=== PATIENT | female | born 1940 | race Caucasian/White ===

== ENCOUNTER → 2018-01-17 09:09 | Outpatient (CLI) | payer MEDICARE, SELFPAY ==
[2018-01-17 11:03] LABS: Hemoglobin A1C% w Est Avg Glu 6.2 % (4.0-6.0)
[2018-01-17 11:09] LABS: Alanine Aminotransferase 72 IU/L (9-52); Albumin 4.1 g/dL (3.5-5.0); Albumin Globulin Ratio 1.1 (1.0-2.8); Alkaline Phosphatase 117 U/L (38-126); Aspartate Aminotransferase 103 IU/L (14-36); BUN Creatinine Ratio 25.7 (6-22); Bilirubin Total 0.9 mg/dL (0.2-1.3); Blood Urea Nitrogen 18 mg/dL (7-17); Calcium 9.4 mg/dL (8.4-10.2); Carbon Dioxide 28 mmol/L (22-32); Chloride 103 mmol/L (98-107); Cholesterol 163 mg/dL (140-199); Estimated Glomerular Filt Rate > 60.0 mL/min (>60); Globulin 3.8 g/dL (1.7-4.1); Glucose 130 mg/dL (80-110); HDL Cholesterol 56 mg/dL (40-60); HEMOLYSIS < 15 (0-50); LDL Cholesterol Calculated 89 mg/dL (<100); Potassium 4.1 mmol/L (3.4-5.1); Sodium 142 mmol/L (137-145); Total Protein 7.9 g/dL (6.3-8.2); Triglycerides 89 mg/dL (35-150)
== END ==
PROVIDERS: Family Provider Family Medicine; PCP Family Medicine; Visit Provider Family Medicine
DX: I10 Essential (primary) hypertension (principal); R73.9 Hyperglycemia, unspecified; E78.2 Mixed hyperlipidemia; K75.4 Autoimmune hepatitis
CPT/HCPCS: 36415; 80053; 80061; 83036

== ENCOUNTER → 2018-04-12 15:26 | Outpatient (CLI) | payer MEDICARE, SELFPAY ==
--- NOTE | 2018-04-12 | DI.MG.S_ITS ---
BILATERAL DIGITAL SCREENING MAMMOGRAM 3D/2D WITH CAD: 04/12/2018 CLINICAL: Routine screening. Family history of breast cancer. Comparison is made to exams dated: 04/07/2017 mammogram, 04/01/2016 mammogram, and 02/11/2015 mammogram - [facility]. There are scattered fibroglandular elements in both breasts. Current study was also evaluated with a Computer Aided Detection (CAD) system. No significant masses, calcifications, or other findings are seen in either breast. There has been no significant interval change. IMPRESSION: NEGATIVE There is no mammographic evidence of malignancy. A 1 year screening mammogram is recommended. This exam was interpreted at Station ID: [id number]. NOTE: For mammograms, a report in lay terms will be sent to the patient. Approximately 15% of breast malignancies will not be visualized mammographically. In the management of a palpable breast mass, a negative mammogram must not discourage biopsy of a clinically suspicious lesion. Electronically Signed By: Lawrence [email or web address]/[email or web address]:04/14/2018 03:09:42 letter sent: Normal Exam ACR BI-RADS Category 1: Negative [id number]
== END ==
PROVIDERS: Family Provider Family Medicine; PCP Family Medicine; Visit Provider Family Medicine
DX: Z12.31 Encounter for screening mammogram for malignant neoplasm of breast (principal); Z80.3 Family history of malignant neoplasm of breast
CPT/HCPCS: 77063; 77067

== ENCOUNTER 2018-04-16 11:59 | Emergency (ER) | payer MEDICARE, SELFPAY ==
[2018-04-16 12:05] VITALS: BP 180/65; PULSE 73; RESP 15; TEMP 36.6; O2SAT 99; BMI 30.7
--- NOTE | 2018-04-16 13:10 | DI.RAD.S_ITS ---
PROCEDURE: XR HIP W PEL IF DONE RT 2V INDICATIONS: hip pain TECHNIQUE: 2 views of the hip were acquired. COMPARISON: [facility], [place], HIPBILAT 3TO4V W PEL IF PERFD, 05/10/2016, 10:44. FINDINGS: Bones: No fractures or dislocations. No suspicious bony lesions. The visualized pelvic ring appears intact. Soft tissues: No suspicious soft tissue calcifications or masses. IMPRESSION: No acute radiographic findings. If pain persists, consider advanced imaging with CT or MRI. Dictated by: Priya Hopper M.D. on 04/16/2018 at 14:07 Approved by: Priya Hopper M.D. on 04/16/2018 at 14:08
--- NOTE | 2018-04-16 13:14 | ED.LOWEXIN ---
HPI - Extremity Injury (Lower) <REHAN Madsen-BC - Last Filed: 04/16/18 15:30> General Chief Complaint: Extremity Injury, Lower Stated Complaint: right hip pain Time Seen by Provider: 04/16/18 13:04 Source: patient Mode of arrival: ambulatory Limitations: no limitations History of Present Illness HPI Narrative: Patient presents with chief complaint of her right hip pain. She states she stepped wrong while bowling a week and half ago. She denies any numbness or tingling. She states that her pain is worse upon movement, walking as well as if she is in one position for too long. She has tried a few doses of Tylenol as well as ice. She is concerned she has a fracture. She states she did not fall, but stepped wrong. She denies weakness or decreased range of motion. She denies any bruising or rash. She states that she is in no pain at this moment in time but her pain was 8/10 last night. Related Data Home Medications Medication Instructions Recorded Confirmed ASPIRIN (Aspirin EC) 81 mg PO Q DAY #0 12/01/10 03/10/18 FOLIC ACID/VIT A/VIT B1/VIT 1 tab PO #0 12/01/10 01/24/18 (#MULTIVITAMIN) ibuprofen 800 mg PO Q8HP #0 12/01/10 03/10/18 Previous Rx's Medication Instructions Recorded Glucose: Test Strips ea QDAY #100 06/29/17 ezetimibe 10 mg tablet 10 mg PO QDAY #90 tab 01/24/18 hydrochlorothiazide 25 mg tablet 25 mg PO QDAY #90 tab 01/24/18 Allergies Allergy/AdvReac Type Severity Reaction Status Date / Time No Known Drug Allergies Allergy Verified 04/16/18 12:05 Review of Systems <HÉCTOR MadsenBC - Last Filed: 04/16/18 15:30> Review of Systems GENERAL: Denies chills, fatigue, malaise, fever, sweats. HEENT: Denies sinus pain, ear pain, sore throat, difficulty swallowing, dizziness. RESPIRATORY: Denies dyspnea, cough, wheezing, hemoptysis, sputum. CARDIOVASCULAR: Denies chest pain, palpitations, orthopnea, edema, GASTROINTESTINAL: Denies nausea, vomiting, abdominal pain, diarrhea, constipation, melena. : Denies dysuria, frequency, incontinence, hematuria, urinary retention. MUSCULOSKELETAL: See HPI SKIN: Denies rash, skin lesions, or other NEUROLOGIC: Denies weakness, headache, numbness, change in speech, confusion, seizures, incoordination. PSYCHIATRIC: No concerning psychosocial issues. 12 point review of systems is negative except for those stated above Exam <REHAN Madsen-BC - Last Filed: 04/16/18 15:30> Narrative Exam Narrative: GENERAL: Obese elderly female lying on stretcher. HEAD: Atraumatic. Normocephalic. No temporal or scalp tenderness. EYES: Pupils equal round and reactive. Extraocular motions intact. No scleral icterus. No injection or drainage. ENT: Nose without bleeding, purulent drainage or septal hematoma. Throat without erythema, tonsillar hypertrophy or exudate. Uvula midline. Airway patent. NECK: Trachea midline. No JVD or lymphadenopathy. Supple, nontender, no meningeal signs. CARDIOVASCULAR: Regular rate and rhythm without murmurs, gallops, or rubs. RESPIRATORY: Clear to auscultation. Breath sounds equal bilaterally. No wheezes, rales, or rhonchi. GASTROINTESTINAL: Abdomen soft, non-tender, nondistended. No hepato-splenomegaly, or palpable masses. No guarding. EXTREMITIES: Right hip pain to palpation. Full range of motion noted right hip. Positive pedal pulses right side. No pedal edema noted. Pelvis stable to rock. Patient ambulating steadily. BACK: Nontender without deformity or crepitance. No flank tenderness. NEURO: AOx3. SKIN: No rash or erythema. No erythema, ecchymosis or rash noted right hip. Initial Vital Signs Initial Vital Signs: Vital Signs Temperature 97.9 F 04/16/18 12:05 Pulse Rate 73 04/16/18 12:05 Respiratory Rate 15 04/16/18 12:05 Blood Pressure 180/65 H 04/16/18 12:05 Pulse Oximetry 99 04/16/18 12:05 <China Rodas DO - Last Filed: 04/19/18 07:46> Initial Vital Signs Initial Vital Signs: Vital Signs Temperature 97.9 F 04/16/18 12:05 Pulse Rate 73 04/16/18 12:05 Respiratory Rate 15 04/16/18 12:05 Blood Pressure 180/65 H 04/16/18 12:05 Pulse Oximetry 99 04/16/18 12:05 Course <AMANDEEP Madsen - Last Filed: 04/16/18 15:30> Orders Ordered: ED Orders 04/16/18 13:10 XR hip w pel if done RT 2V Stat 04/16/18 13:55 Urinalysis and Microscopic Stat Urine Culture Stat I discussed her UA showed leukocytes, but that she has no urinary symptoms as well as no blood nitrites, we will send a urine culture and not start antibiotics at this time. She states understanding. Vital Signs - 8 hr 04/16/18 12:05 04/16/18 14:25 Temperature 97.9 F Pulse Rate 73 70 Respiratory Rate 15 20 Blood Pressure 180/65 H 149/72 H Blood Pressure [Right Arm] 149/72 H Pulse Oximetry 99 97 <China Rodas DO - Last Filed: 04/19/18 07:46> Orders Ordered: ED Orders 04/16/18 13:10 XR hip w pel if done RT 2V Stat 04/16/18 13:55 Urinalysis and Microscopic Stat Urine Culture Stat Vital Signs - 8 hr 04/16/18 12:05 04/16/18 14:25 Temperature 97.9 F Pulse Rate 73 70 Respiratory Rate 15 20 Blood Pressure 180/65 H 149/72 H Blood Pressure [Right Arm] 149/72 H Pulse Oximetry 99 97 MDM - Extremity Injury (Lower) <AMANDEEP Madsen - Last Filed: 04/16/18 15:30> Lab Data Lab Results 04/16/18 Range/Units 13:55 Urine Color Yellow Urine Appearance Clear Urine pH 6.5 (4.5-8.0) Ur Specific [place] <=1.005 (1.000-1.035) Urine Protein Negative (Negative) Urine Glucose (UA) Negative (Normal) g/dL Urine Ketones Negative (NEGATIVE) Urine Occult Blood Negative (Negative) Urine Nitrate Negative (Negative) Urine Bilirubin Negative (NEGATIVE) Urine Urobilinogen 0.2 (0.2) E.U./dL Ur Leukocyte Esterase Trace H (NEGATIVE) Urine RBC None seen (0-5/HPF) Urine WBC 1-5/hpf (0-5/HPF) Ur Squamous Epith Cells 1-5 /hpf Urine Bacteria None seen (None) Ur Culture Indicated? Specimen cultured Micro UA Comment Not Reportable Imaging Data pelvis xray: Radiologist's impression: View Report History Print [address] [address] XRay Report Signed Patient: Patricia Giordano MR#: [id number] : 1940 Acct:[id number] Age/Sex: 77 / F Date of Service: 04/16/18 Loc: ED Accession Number: [id number] Procedure: XR hip w pel if done RT 2V Ordering Provider: China Eli-BC PROCEDURE: XR HIP W PEL IF DONE RT 2V INDICATIONS: hip pain TECHNIQUE: 2 views of the hip were acquired. COMPARISON: [facility], [place], HIPBILAT 3TO4V W PEL IF PERFD, 05/10/2016, 10:44. FINDINGS: Bones: No fractures or dislocations. No suspicious bony lesions. The visualized pelvic ring appears intact. Soft tissues: No suspicious soft tissue calcifications or masses. IMPRESSION: No acute radiographic findings. If pain persists, consider advanced imaging with CT or MRI. Dictated by: Priya Hopper M.D. on 04/16/2018 at 14:07 Approved by: Priya Hopper M.D. on 04/16/2018 at 14:08 [facility] Narrative Medical decision making narrative: X-rays were taken as discussed. X-rays came back within normal limits. Discussed conservative measures as well as follow up with primary care for possibility of physical therapy here for further imaging. Patient stated accordance with plan of care and had no questions or concerns upon discharge. <China Rodas, - Last Filed: 04/19/18 07:46> Lab Data Lab Results 04/16/18 Range/Units 13:55 Urine Color Yellow Urine Appearance Clear Urine pH 6.5 (4.5-8.0) Ur Specific [place] <=1.005 (1.000-1.035) Urine Protein Negative (Negative) Urine Glucose (UA) Negative (Normal) g/dL Urine Ketones Negative (NEGATIVE) Urine Occult Blood Negative (Negative) Urine Nitrate Negative (Negative) Urine Bilirubin Negative (NEGATIVE) Urine Urobilinogen 0.2 (0.2) E.U./dL Ur Leukocyte Esterase Trace H (NEGATIVE) Urine RBC None seen (0-5/HPF) Urine WBC 1-5/hpf (0-5/HPF) Ur Squamous Epith Cells 1-5 /hpf Urine Bacteria None seen (None) Ur Culture Indicated? Specimen cultured Micro UA Comment Not Reportable Discharge Plan Departure Patient Disposition: Home Clinical Impression: Acute pain of right hip Discharge Date/Time: 04/16/18 14:26 Interventions: ED Discharge Assessment Last Done: 04/16/18 14:25 Instructions: Help for Hip Pain, DI for Hip Pain Activity Restrictions/Additional Instructions: Your x-rays came back with no indications of fracture today. Please follow-up with primary care provider for worsening or no improvement. Please use rest, ice, heat, [id number] pain medications as needed and able. Prescriptions: No Action ezetimibe [Zetia] 10 mg tablet 10 mg PO QDAY Qty: 90 RF: 1 hydrochlorothiazide 25 mg tablet 25 mg PO QDAY Qty: 90 RF: 1 ibuprofen 800 MG tablet 800 mg PO Q8HP Qty: 0 RF: 0 ASPIRIN (Aspirin EC) 81 mg PO Q DAY Qty: 0 RF: 0 FOLIC ACID/VIT A/VIT B1/VIT (#MULTIVITAMIN) 1 tab PO Qty: 0 RF: 0 Glucose: Test Strips QDAY Qty: 100 RF: 3 Referrals: Keara Strong DO [Primary Care Provider] - <China Rodas DO - Last Filed: 04/19/18 07:46> Cosign ED Attending Cosignature Attestation: I was immediately available in the department for consultation. This documentation has been reviewed and I agree with assessment and plan. Supervised by China Rodas DO
[2018-04-16 14:00] LABS: Bacteria Urine None Seen; RBC Urine None Seen (0-5/HPF)
[2018-04-16 14:01] LABS: Appearance Urine UA CLEAR; Bilirubin Urine UA NEGATIVE (NEGATIVE); Color Urine UA YELLOW; Glucose Urine UA NEGATIVE (Normal); Ketones Urine UA NEGATIVE (NEGATIVE); Leukocyte Esterase Urine UA TRACE (NEGATIVE); Nitrite Urine UA Negative (Negative); Occult Blood Urine UA NEGATIVE (Negative); Protein Urine UA NEGATIVE (Negative); Specific Gravity Urine UA <=1.005 (1.000-1.035); Urobilinogen Urine UA 0.2 E.U./dL (0.2); pH Urine UA 6.5 (4.5-8.0)
[2018-04-16 14:08] LABS: Culture Indicated Urine Specimen Cultured; Squamous Epithelial Cell Urine 1-5 /HPF; WBC Urine 1-5/HPF (0-5/HPF)
--- NOTE | 2018-04-16 14:21 | ED_ITS ---
HPI - Extremity Injury (Lower) <REHAN Madsen-BC - Last Filed: 04/16/18 15:30> General Chief Complaint: Extremity Injury, Lower Stated Complaint: right hip pain Time Seen by Provider: 04/16/18 13:04 Source: patient Mode of arrival: ambulatory Limitations: no limitations History of Present Illness HPI Narrative: Patient presents with chief complaint of her right hip pain. She states she stepped wrong while bowling a week and half ago. She denies any numbness or tingling. She states that her pain is worse upon movement, walking as well as if she is in one position for too long. She has tried a few doses of Tylenol as well as ice. She is concerned she has a fracture. She states she did not fall, but stepped wrong. She denies weakness or decreased range of motion. She denies any bruising or rash. She states that she is in no pain at this moment in time but her pain was 8/10 last night. Related Data Home Medications Medication Instructions Recorded Confirmed ASPIRIN (Aspirin EC) 81 mg PO Q DAY #0 12/01/10 03/10/18 FOLIC ACID/VIT A/VIT B1/VIT 1 tab PO #0 12/01/10 01/24/18 (#MULTIVITAMIN) ibuprofen 800 mg PO Q8HP #0 12/01/10 03/10/18 Previous Rx's Medication Instructions Recorded Glucose: Test Strips ea QDAY #100 06/29/17 ezetimibe 10 mg tablet 10 mg PO QDAY #90 tab 01/24/18 hydrochlorothiazide 25 mg tablet 25 mg PO QDAY #90 tab 01/24/18 Allergies Allergy/AdvReac Type Severity Reaction Status Date / Time No Known Drug Allergies Allergy Verified 04/16/18 12:05 Review of Systems <HÉCTOR MadsenBC - Last Filed: 04/16/18 15:30> Review of Systems GENERAL: Denies chills, fatigue, malaise, fever, sweats. HEENT: Denies sinus pain, ear pain, sore throat, difficulty swallowing, dizziness. RESPIRATORY: Denies dyspnea, cough, wheezing, hemoptysis, sputum. CARDIOVASCULAR: Denies chest pain, palpitations, orthopnea, edema, GASTROINTESTINAL: Denies nausea, vomiting, abdominal pain, diarrhea, constipation, melena. : Denies dysuria, frequency, incontinence, hematuria, urinary retention. MUSCULOSKELETAL: See HPI SKIN: Denies rash, skin lesions, or other NEUROLOGIC: Denies weakness, headache, numbness, change in speech, confusion, seizures, incoordination. PSYCHIATRIC: No concerning psychosocial issues. 12 point review of systems is negative except for those stated above Exam <REHAN Madsen-BC - Last Filed: 04/16/18 15:30> Narrative Exam Narrative: GENERAL: Obese elderly female lying on stretcher. HEAD: Atraumatic. Normocephalic. No temporal or scalp tenderness. EYES: Pupils equal round and reactive. Extraocular motions intact. No scleral icterus. No injection or drainage. ENT: Nose without bleeding, purulent drainage or septal hematoma. Throat without erythema, tonsillar hypertrophy or exudate. Uvula midline. Airway patent. NECK: Trachea midline. No JVD or lymphadenopathy. Supple, nontender, no meningeal signs. CARDIOVASCULAR: Regular rate and rhythm without murmurs, gallops, or rubs. RESPIRATORY: Clear to auscultation. Breath sounds equal bilaterally. No wheezes , rales, or rhonchi. GASTROINTESTINAL: Abdomen soft, non-tender, nondistended. No hepato-splenomegaly , or palpable masses. No guarding. EXTREMITIES: Right hip pain to palpation. Full range of motion noted right hip. Positive pedal pulses right side. No pedal edema noted. Pelvis stable to rock. Patient ambulating steadily. BACK: Nontender without deformity or crepitance. No flank tenderness. NEURO: AOx3. SKIN: No rash or erythema. No erythema, ecchymosis or rash noted right hip. Initial Vital Signs Initial Vital Signs: Vital Signs Temperature 97.9 F 04/16/18 12:05 Pulse Rate 73 04/16/18 12:05 Respiratory Rate 15 04/16/18 12:05 Blood Pressure 180/65 H 04/16/18 12:05 Pulse Oximetry 99 04/16/18 12:05 <China Rodas DO - Last Filed: 04/19/18 07:46> Initial Vital Signs Initial Vital Signs: Vital Signs Temperature 97.9 F 04/16/18 12:05 Pulse Rate 73 04/16/18 12:05 Respiratory Rate 15 04/16/18 12:05 Blood Pressure 180/65 H 04/16/18 12:05 Pulse Oximetry 99 04/16/18 12:05 Course <AMANDEEP Madsen - Last Filed: 04/16/18 15:30> Orders Ordered: ED Orders 04/16/18 13:10 XR hip w pel if done RT 2V Stat 04/16/18 13:55 Urinalysis and Microscopic Stat Urine Culture Stat I discussed her UA showed leukocytes, but that she has no urinary symptoms as well as no blood nitrites, we will send a urine culture and not start antibiotics at this time. She states understanding. Vital Signs - 8 hr 04/16/18 12:05 04/16/18 14:25 Temperature 97.9 F Pulse Rate 73 70 Respiratory Rate 15 20 Blood Pressure 180/65 H 149/72 H Blood Pressure [Right Arm] 149/72 H Pulse Oximetry 99 97 <China Rodas DO - Last Filed: 04/19/18 07:46> Orders Ordered: ED Orders 04/16/18 13:10 XR hip w pel if done RT 2V Stat 04/16/18 13:55 Urinalysis and Microscopic Stat Urine Culture Stat Vital Signs - 8 hr 04/16/18 12:05 04/16/18 14:25 Temperature 97.9 F Pulse Rate 73 70 Respiratory Rate 15 20 Blood Pressure 180/65 H 149/72 H Blood Pressure [Right Arm] 149/72 H Pulse Oximetry 99 97 MDM - Extremity Injury (Lower) <AMANDEEP Madsen - Last Filed: 04/16/18 15:30> Lab Data Lab Results 04/16/18 Range/Units 13:55 Urine Color Yellow Urine Appearance Clear Urine pH 6.5 (4.5-8.0) Ur Specific [place] <=1.005 (1.000-1.035) Urine Protein Negative (Negative) Urine Glucose (UA) Negative (Normal) g/dL Urine Ketones Negative (NEGATIVE) Urine Occult Blood Negative (Negative) Urine Nitrate Negative (Negative) Urine Bilirubin Negative (NEGATIVE) Urine Urobilinogen 0.2 (0.2) E.U./dL Ur Leukocyte Esterase Trace H (NEGATIVE) Urine RBC None seen (0-5/HPF) Urine WBC 1-5/hpf (0-5/HPF) Ur Squamous Epith Cells 1-5 /hpf Urine Bacteria None seen (None) Ur Culture Indicated? Specimen cultured Micro UA Comment Not Reportable Imaging Data pelvis xray: Radiologist's impression: View Report History Print [address] [address] XRay Report Signed Patient: Patricia Giordano MR#: [id number] : 1940 Acct:[id number] Age/Sex: 77 / F Date of Service: 04/16/18 Loc: ED Accession Number: [id number] Procedure: XR hip w pel if done RT 2V Ordering Provider: China Eli-BC PROCEDURE: XR HIP W PEL IF DONE RT 2V INDICATIONS: hip pain TECHNIQUE: 2 views of the hip were acquired. COMPARISON: [facility], [place], HIPBILAT 3TO4V W PEL IF PERFD, 05/10/2016, 10: 44. FINDINGS: Bones: No fractures or dislocations. No suspicious bony lesions. The visualized pelvic ring appears intact. Soft tissues: No suspicious soft tissue calcifications or masses. IMPRESSION: No acute radiographic findings. If pain persists, consider advanced imaging with CT or MRI. Dictated by: Priya Hopper M.D. on 04/16/2018 at 14:07 Approved by: Priya Hopper M.D. on 04/16/2018 at 14:08 [facility] Narrative Medical decision making narrative: X-rays were taken as discussed. X-rays came back within normal limits. Discussed conservative measures as well as follow up with primary care for possibility of physical therapy here for further imaging. Patient stated accordance with plan of care and had no questions or concerns upon discharge. <China Rodas, - Last Filed: 04/19/18 07:46> Lab Data Lab Results 04/16/18 Range/Units 13:55 Urine Color Yellow Urine Appearance Clear Urine pH 6.5 (4.5-8.0) Ur Specific [place] <=1.005 (1.000-1.035) Urine Protein Negative (Negative) Urine Glucose (UA) Negative (Normal) g/dL Urine Ketones Negative (NEGATIVE) Urine Occult Blood Negative (Negative) Urine Nitrate Negative (Negative) Urine Bilirubin Negative (NEGATIVE) Urine Urobilinogen 0.2 (0.2) E.U./dL Ur Leukocyte Esterase Trace H (NEGATIVE) Urine RBC None seen (0-5/HPF) Urine WBC 1-5/hpf (0-5/HPF) Ur Squamous Epith Cells 1-5 /hpf Urine Bacteria None seen (None) Ur Culture Indicated? Specimen cultured Micro UA Comment Not Reportable Discharge Plan Departure Patient Disposition: Home Clinical Impression: Acute pain of right hip Discharge Date/Time: 04/16/18 14:26 Interventions: ED Discharge Assessment Last Done: 04/16/18 14:25 Instructions: Help for Hip Pain, DI for Hip Pain Activity Restrictions/Additional Instructions: Your x-rays came back with no indications of fracture today. Please follow-up with primary care provider for worsening or no improvement. Please use rest, ice, heat, [id number] pain medications as needed and able. Prescriptions: No Action ezetimibe [Zetia] 10 mg tablet 10 mg PO QDAY Qty: 90 RF: 1 hydrochlorothiazide 25 mg tablet 25 mg PO QDAY Qty: 90 RF: 1 ibuprofen 800 MG tablet 800 mg PO Q8HP Qty: 0 RF: 0 ASPIRIN (Aspirin EC) 81 mg PO Q DAY Qty: 0 RF: 0 FOLIC ACID/VIT A/VIT B1/VIT (#MULTIVITAMIN) 1 tab PO Qty: 0 RF: 0 Glucose: Test Strips QDAY Qty: 100 RF: 3 Referrals: Keara Strong DO [Primary Care Provider] - <China Rodas DO - Last Filed: 04/19/18 07:46> Cosign ED Attending Cosignature Attestation: I was immediately available in the department for consultation. This documentation has been reviewed and I agree with assessment and plan. Supervised by China Rodas DO
[2018-04-16 14:25] VITALS: BP 149/72; PULSE 70; PULSE 72; RESP 16; RESP 20; O2SAT 97; O2SAT 98
== END 2018-04-16 14:26 | disposition home or self-care (01) ==
PROVIDERS: Emergency Provider Nurse Practitioner Family; Family Provider Family Medicine; PCP Family Medicine
DX: M25.551 Pain in right hip (principal); W01.0XXA Fall on same level from slipping, tripping and stumbling without subsequent striking against object, initial encounter
CPT/HCPCS: 73502; 81001; 87086; 99282; 99284

== ENCOUNTER → 2018-07-20 09:15 | Outpatient (CLI) | payer MEDICARE, SELFPAY ==
[2018-07-20 09:56] LABS: Hemoglobin A1C% w Est Avg Glu 6.7 % (4.0-6.0)
[2018-07-20 10:14] LABS: Alanine Aminotransferase 56 IU/L (9-52); Albumin 4.2 g/dL (3.5-5.0); Albumin Globulin Ratio 1.1 (1.0-2.8); Alkaline Phosphatase 116 U/L (38-126); Amylase 101 U/L (30-110); Aspartate Aminotransferase 78 IU/L (14-36); BUN Creatinine Ratio 23.3 (6-22); Bilirubin Total 1.2 mg/dL (0.2-1.3); Blood Urea Nitrogen 14 mg/dL (7-17); Calcium 9.2 mg/dL (8.4-10.2); Carbon Dioxide 26 mmol/L (22-32); Chloride 105 mmol/L (98-107); Cholesterol 181 mg/dL (140-199); Estimated Glomerular Filt Rate > 60.0 mL/min (>60); Globulin 3.7 g/dL (1.7-4.1); Glucose 147 mg/dL (80-110); HDL Cholesterol 63 mg/dL (40-60); HEMOLYSIS 18 (0-50); LDL Cholesterol Calculated 94 mg/dL (<100); Lipase 112 U/L (23-300); Potassium 3.9 mmol/L (3.4-5.1); Sodium 141 mmol/L (137-145); Total Protein 7.9 g/dL (6.3-8.2); Triglycerides 120 mg/dL (35-150)
[2018-07-20 10:55] LABS: Thyroid Stimulating Hormone 1.72 uIU/mL (0.47-4.68)
[2018-07-22 14:10] LABS: Alpha Fetoprotein 4.1 ng/mL (< 6.1)
== END ==
PROVIDERS: PCP Family Medicine; Visit Provider Family Medicine
DX: E78.2 Mixed hyperlipidemia (principal); I10 Essential (primary) hypertension; K76.0 Fatty (change of) liver, not elsewhere classified; R73.9 Hyperglycemia, unspecified; Z87.19 Personal history of other diseases of the digestive system
CPT/HCPCS: 36415; 80053; 80061; 82105; 82150; 83036; 83690; 84443

== ENCOUNTER → 2018-08-03 14:43 | Outpatient (CLI) | payer MEDICARE, SELFPAY ==
[2018-08-07 22:44] LABS: Fecal Immunochemical Test DETECTED
== END ==
PROVIDERS: Family Provider Family Medicine; PCP Family Medicine; Visit Provider Family Medicine
DX: K59.00 Constipation, unspecified (principal); Z12.11 Encounter for screening for malignant neoplasm of colon
CPT/HCPCS: 82274

== ENCOUNTER 2018-11-03 08:36 | Emergency (ER) | payer MEDICARE, SELFPAY ==
[2018-11-03 08:42] VITALS: BP 178/94; PULSE 87; RESP 20; TEMP 36.6; O2SAT 97
--- NOTE | 2018-11-03 08:49 | ED.UPPEXIN ---
HPI - Extremity Injury (Upper) General Chief Complaint: Extremity Injury, Upper Stated Complaint: Fell and hurt r shoulder Time Seen by Provider: 11/03/18 08:40 Source: patient and family Mode of arrival: ambulatory Limitations: no limitations History of Present Illness HPI narrative: This is a 77-year-old female who states that she got out of bed last night about 430. She tripped over the dog. Dog mostly sleeps next to the bed but last night slept at the foot of the bed. When she got up in the middle night to go to the restroom she tripped over him. She grabbed the bed spread with her left arm and fell onto her right shoulder. She states she did not hit her head, she does not she does not have any neck or back pain. She complains of pain in the right shoulder region, anterior chest just below the clavicle. Patient states that she does not have any pain rating 80 down the arm. No weakness, numbness. She is able to lift the arm until it is about equal with her shoulder and then she has pain. she denies any other injury besides a small abrasion on her right knee. She has not noticed any other extensive bruising. She denies any other shortness of breath, no abdominal pain, no nausea or vomiting, no diarrhea or constipation or urinary issues. No LOC, syncope or dizziness. She takes medication for blood pressure and cholesterol, she takes a daily baby aspirin and vitamin-C. She states she has had a cholecystectomy and appendectomy. Patient states tetanus up to date. Related Data Home Medications Medication Instructions Recorded Confirmed ASPIRIN (Aspirin EC) 81 mg PO Q DAY #0 12/01/10 07/28/18 FOLIC ACID/VIT A/VIT B1/VIT 1 tab PO #0 12/01/10 07/28/18 (#MULTIVITAMIN) ibuprofen 800 mg PO Q8HP #0 12/01/10 07/28/18 Previous Rx's Medication Instructions Recorded Glucose: Test Strips ea QDAY #100 06/29/17 polyethylene glycol 3350 17 gram 17 gram PO DAILY #30 each 07/28/18 oral powder packet ezetimibe 10 mg tablet 10 mg PO QDAY #90 tab 09/21/18 hydrochlorothiazide 25 mg tablet 25 mg PO QDAY #90 tab 09/29/18 Allergies Allergy/AdvReac Type Severity Reaction Status Date / Time No Known Drug Allergies Allergy Verified 07/28/18 08:51 Review of Systems Review of Systems ROS Unobtainable: All systems reviewed & are unremarkable except as noted in HPI and below Constitutional Denies chills, Denies fever(s) and Denies weakness ENT Ears, Nose, Mouth, and Throat: Denies neck pain Cardiovascular Reports chest pain (just below right shoulder), Denies syncope, Denies edema, Denies lightheadedness, Denies radiating jaw, neck or arm pain, Denies dyspnea, Denies dyspnea on exertion and Denies orthopnea Respiratory Denies excessive phlegm production, Denies pain on inspiration, Denies dyspnea, Denies dyspnea on exertion and Denies wheezing Gastrointestinal Gastrointestinal: Denies abdominal pain, Denies change in bowel habits, Denies diarrhea, Denies nausea and Denies vomiting Genitourinary Denies urinary frequency, Denies dysuria and Denies urinary urgency Musculoskeletal Reports as per HPI, Denies back pain, Reports arthralgias (right shoulder/clavicle area.), Denies joint swelling, Reports limited range of motion, Denies muscle weakness, Denies neck pain, Denies numbness and Denies tingling Integumentary/Breasts Reports wounds (abrasion right knee) Neurologic Denies syncope, Denies numbness, Denies tingling and Denies weakness Allergic/Immunologic Denies wheezing PFSH Medical History Diverticular disease (Acute Unknown) Hypertension (Acute Unknown) Hyperglycemia (Chronic Unknown) NAFLD (nonalcoholic fatty liver disease) (Chronic Unknown) EASTON (nonalcoholic steatohepatitis) (Chronic 10/2014) Carpal tunnel syndrome (Resolved Unknown) Hyperlipemia (Resolved Unknown) Surgical History History of carpal tunnel release (Resolved Unknown) Hx of appendectomy (Resolved Unknown) Hx of cataract surgery (Resolved Unknown) Status post cholecystectomy Family History Father Cancer Mother Cancer Social History Smoking Status: Never smoker alcohol intake: never Social History Smoking Status: Never smoker alcohol intake: never Exam Narrative Exam Narrative: GEN: Patient appears in mild distress. HEAD: No evidence of trauma, no raccoon/Toro sign. NECK: Nontender, painless range of motion, trachea midline Negative Nexus criteria, there is no mid line tenderness, distracting injury, altered mental status, neuro deficit, recent EtOH. EYES: PERRLA, EOMI ENT: External inspection normal, trachea is midline, airway is normal and with normal occlusion. RESP: Chest is nontender and has symmetric movement, no ecchymosis, breath sounds are normal no crackles, wheezes or rales CVS: Heart sounds are normal, no murmur noted, No JVD. ABG/GI: Nontender, normal bowel sounds. No hepatosplenomegaly. NEURO: Oriented AOx3, neuro is grossly intact, sensation and motor is normal all 4 extremities moving, cranial nerves II through XII are intact, GCS is 15 PSYCH: Normal mood and affect SKIN: Intact, warm and dry, no crepitus and without decubitus. Patient defers me checking the abrasion on her knee. BACK: No CVA tenderness, no vertebral tenderness, no step-off's, no crepitus EXT: Atraumatic, hips are nontender, no pedal edema, normal color and temperature, normal range of motion of extremities with normal tendon exam except for right shoulder, the patient does not have any distinct bony tenderness of the clavicle or right shoulder, she does have pain with a reduction when her elbow reaches the same level of her shoulder patient has discomfort. She does not have any deformity, she has normal coloration with no ecchymosis, abrasion or other skin changes. She has 5/5 muscle strength with medical administrator equal bilaterally. 2+ radial pulse bilaterally. nontender with palpation of the biceps tendon. Initial Vital Signs Initial Vital Signs: Vital Signs Temperature 97.8 F 11/03/18 08:42 Pulse Rate 87 11/03/18 08:42 Respiratory Rate 20 11/03/18 08:42 Blood Pressure 178/94 H 11/03/18 08:42 Pulse Oximetry 97 11/03/18 08:42 Scores GCS [place] coma scale eye opening: Spontaneous Joe coma scale verbal response: Orientated [place] coma scale motor response: Obey commands [place] coma scale total score: 15 Course Orders Ordered: ED Orders 11/03/18 08:48 XR shoulder RT min 2V Stat Vital Signs - 8 hr 11/03/18 08:42 Temperature 97.8 F Pulse Rate 87 Respiratory Rate 20 Blood Pressure 178/94 H Pulse Oximetry 97 MDM - Extremity Injury (Upper) Imaging Data right shoulder xray: Radiologist's impression: [address] [address] XRay Report Signed Patient: Patricia Giordano JMR#: [id number] : 2Acct:[id number] Age/Sex: 77 / FDate of Service: 11/03/18 Loc: ED Accession Number: [id number] Procedure: XR shoulder RT min 2V Ordering Provider: China Rodas D.O. PROCEDURE: XR SHOULDER RT MIN 2V INDICATIONS: right shoulder pain with extension/abduction after fall TECHNIQUE: 3 views of the shoulder were acquired. COMPARISON: None. FINDINGS: Bones: No fractures or dislocations. No suspicious bony lesions. Visualized ribs appear intact. Mild degenerative change of the right acromioclavicular joint noted. Soft tissues: No suspicious soft tissue calcifications. IMPRESSION: 1. No acute fracture or dislocation of the right shoulder identified. Consider followup radiographs in 7-10 days if there is continued clinical concern. 2. Mild degenerative changes of the right acromioclavicular joint. Dictated by: Lawrence Gilmore M.D. on 11/03/2018 at 10:06 Approved by: Lawrence Gilmore M.D. on 11/03/2018 at 10:09 Discharge Plan Departure Patient Disposition: Home Clinical Impression: Right shoulder strain Qualifiers: Encounter type: initial encounter Qualified Code(s): S46.911A - Strain of unspecified muscle, fascia and tendon at shoulder and upper arm level, right arm, initial encounter Discharge Date/Time: 11/03/18 10:10 Interventions: ED Discharge Assessment Last Done: 11/03/18 10:10 Instructions: DI for Shoulder Sprain Activity Restrictions/Additional Instructions: Follow up with your primary care physician in the next 7-10 days if your symptoms are not resolving. Call for a follow up appointment. You may take ibuprofen up to 800 mg every 8 hours and/or Tylenol up to a 1000 mg every 8 hours as needed for pain. You may use ice, alternating with heat as needed to the shoulder. You may put this on 20 minutes at a time 5-6 times daily. Return to the emergency department for new weakness, numbness, loss of sensation, new chest pain, shortness of breath, passing out new neck or back pain or other new or concerning symptoms. Prescriptions: No Action polyethylene glycol 3350 [Miralax] 17 gram powder in packet 17 gram PO DAILY Qty: 30 RF: 0 ibuprofen 800 MG tablet 800 mg PO Q8HP Qty: 0 RF: 0 ASPIRIN (Aspirin EC) 81 mg PO Q DAY Qty: 0 RF: 0 FOLIC ACID/VIT A/VIT B1/VIT (#MULTIVITAMIN) 1 tab PO Qty: 0 RF: 0 Glucose: Test Strips QDAY Qty: 100 RF: 3 ezetimibe [Zetia] 10 mg tablet 10 mg PO QDAY Qty: 90 RF: 1 hydrochlorothiazide 25 mg tablet 25 mg PO QDAY Qty: 90 RF: 1 Referrals: Keara Strong DO [Primary Care Provider] -
--- NOTE | 2018-11-03 08:58 | ED_ITS ---
HPI - Extremity Injury (Upper) General Chief Complaint: Extremity Injury, Upper Stated Complaint: Fell and hurt r shoulder Time Seen by Provider: 11/03/18 08:40 Source: patient and family Mode of arrival: ambulatory Limitations: no limitations History of Present Illness HPI narrative: This is a 77-year-old female who states that she got out of bed last night about 430. She tripped over the dog. Dog mostly sleeps next to the bed but last night slept at the foot of the bed. When she got up in the middle night to go to the restroom she tripped over him. She grabbed the bed spread with her left arm and fell onto her right shoulder. She states she did not hit her head, she does not she does not have any neck or back pain. She complains of pain in the right shoulder region, anterior chest just below the clavicle. Patient states that she does not have any pain rating 80 down the arm. No weakness, numbness. She is able to lift the arm until it is about equal with her shoulder and then she has pain. she denies any other injury besides a small abrasion on her right knee. She has not noticed any other extensive bruising. She denies any other shortness of breath, no abdominal pain, no nausea or vom iting, no diarrhea or constipation or urinary issues. No LOC, syncope or dizziness. She takes medication for blood pressure and cholesterol, she takes a daily baby aspirin and vitamin-C. She states she has had a cholecystectomy and appendectomy. Patient states tetanus up to date. Related Data Home Medications Medication Instructions Recorded Confirmed ASPIRIN (Aspirin EC) 81 mg PO Q DAY #0 12/01/10 07/28/18 FOLIC ACID/VIT A/VIT B1/VIT 1 tab PO #0 12/01/10 07/28/18 (#MULTIVITAMIN) ibuprofen 800 mg PO Q8HP #0 12/01/10 07/28/18 Previous Rx's Medication Instructions Recorded Glucose: Test Strips ea QDAY #100 06/29/17 polyethylene glycol 3350 17 gram 17 gram PO DAILY #30 each 07/28/18 oral powder packet ezetimibe 10 mg tablet 10 mg PO QDAY #90 tab 09/21/18 hydrochlorothiazide 25 mg tablet 25 mg PO QDAY #90 tab 09/29/18 Allergies Allergy/AdvReac Type Severity Reaction Status Date / Time No Known Drug Allergies Allergy Verified 07/28/18 08:51 Review of Systems Review of Systems ROS Unobtainable: All systems reviewed & are unremarkable except as noted in HPI and below Constitutional Denies chills, Denies fever(s) and Denies weakness ENT Ears, Nose, Mouth, and Throat: Denies neck pain Cardiovascular Reports chest pain (just below right shoulder), Denies syncope, Denies edema, Denies lightheadedness, Denies radiating jaw, neck or arm pain, Denies dyspnea, Denies dyspnea on exertion and Denies orthopnea Respiratory Denies excessive phlegm production, Denies pain on inspiration, Denies dyspnea, Denies dyspnea on exertion and Denies wheezing Gastrointestinal Gastrointestinal: Denies abdominal pain, Denies change in bowel habits, Denies diarrhea, Denies nausea and Denies vomiting Genitourinary Denies urinary frequency, Denies dysuria and Denies urinary urgency Musculoskeletal Reports as per HPI, Denies back pain, Reports arthralgias (right sh oulder/clavicle area.), Denies joint swelling, Reports limited range of motion, Denies muscle weakness, Denies neck pain, Denies numbness and Denies tingling Integumentary/Breasts Reports wounds (abrasion right knee) Neurologic Denies syncope, Denies numbness, Denies tingling and Denies weakness Allergic/Immunologic Denies wheezing [facility] Medical History Diverticular disease (Acute Unknown) Hypertension (Acute Unknown) Hyperglycemia (Chronic Unknown) NAFLD (nonalcoholic fatty liver disease) (Chronic Unknown) [place] (nonalcoholic steatohepatitis) (Chronic 10/2014) Carpal tunnel syndrome (Resolved Unknown) Hyperlipemia (Resolved Unknown) Surgical History History of carpal tunnel release (Resolved Unknown) Hx of appendectomy (Resolved Unknown) Hx of cataract surgery (Resolved Unknown) Status post cholecystectomy Family History Father Cancer Mother Cancer Social History Smoking Status: Never smoker alcohol intake: never Social History Smoking Status: Never smoker alcohol intake: never Exam Narrative Exam Narrative: GEN: Patient appears in mild distress. HEAD: No evidence of trauma, no raccoon/Toro sign. NECK: Nontender, painless range of motion, trachea midline Negative Nexus criteria, there is no mid line tenderness, distracting injury, altered mental status, neuro deficit, recent EtOH. EYES: PERRLA, EOMI ENT: External inspection normal, trachea is midline, airway is normal and with normal occlusion. RESP: Chest is nontender and has symmetric movement, no ecchymosis, breath sounds are normal no crackles, wheezes or rales CVS: Heart sounds are normal, no murmur noted, No JVD. ABG/GI: Nontender, normal bowel sounds. No hepatosplenomegaly. NEURO: Oriented AOx3, neuro is grossly intact, sensation and motor is normal all 4 extremities moving, cranial nerves II through XII are intact, GCS is 15 PSYCH: Normal mood and affect SKIN: Intact, warm and dry, no crepitus and without decubitus. Patient defers me checking the abrasion on her knee. BACK: No CVA tenderness, no vertebral tenderness, no step-off's, no crepitus EXT: Atraumatic, hips are nontender, no pedal edema, normal color and temperature, normal range of motion of extremities with normal tendon exam except for right shoulder, the patient does not have any distinct bony te nderness of the clavicle or right shoulder, she does have pain with a reduction when her elbow reaches the same level of her shoulder patient has discomfort. She does not have any deformity, she has normal coloration with no ecchymosis, abrasion or other skin changes. She has 5/5 muscle strength with terminal clerk equal bilaterally. 2+ radial pulse bilaterally. nontender with palpation of the biceps tendon. Initial Vital Signs Initial Vital Signs: Vital Signs Temperature 97.8 F 11/03/18 08:42 Pulse Rate 87 11/03/18 08:42 Respiratory Rate 20 11/03/18 08:42 Blood Pressure 178/94 H 11/03/18 08:42 Pulse Oximetry 97 11/03/18 08:42 Scores GCS [place] coma scale eye opening: Spontaneous [place] coma scale verbal response: Orientated [place] coma scale motor response: Obey commands Joe coma scale total score: 15 Course Orders Ordered: ED Orders 11/03/18 08:48 XR shoulder RT min 2V Stat Vital Signs - 8 hr 11/03/18 08:42 Temperature 97.8 F Pulse Rate 87 Respiratory Rate 20 Blood Pressure 178/94 H Pulse Oximetry 97 MDM - Extremity Injury (Upper) Imaging Data right shoulder xray: Radiologist's impression: [address] [address] XRay Report Signed Patient: Patricia Giordano JMR#: [id number] : 2Acct:[id number] Age/Sex: 77 / FDate of Service: 11/03/18 Loc: ED Accession Number: [id number] Procedure: XR shoulder RT min 2V Ordering Provider: China Rodas D.O. PROCEDURE: XR SHOULDER RT MIN 2V INDICATIONS: right shoulder pain with extension/abduction after fall TECHNIQUE: 3 views of the shoulder were acquired. COMPARISON: None. FINDINGS: Bones: No fractures or dislocations. No suspicious bony lesions. Visualized ribs appear intact. Mild degenerative change of the right acromioclavicular joint noted. Soft tissues: No suspicious soft tissue calcifications. IMPRESSION: 1. No acute fracture or dislocation of the right shoulder identified. Consider followup radiographs in 7-10 days if there is continued clinical concern. 2. Mild degenerative changes of the right acromioclavicular joint. Dictated by: Lawrence Gilmore M.D. on 11/03/2018 at 10:06 Approved by: Lawrence Gilmore M.D. on 11/03/2018 at 10:09 Discharge Plan Departure Patient Disposition: Home Clinical Impression: Right shoulder strain Qualifiers: Encounter type: initial encounter Qualified Code(s): S46.911A - Strain of unspecified muscle, fascia and tendon at shoulder and upper arm level, right arm, initial encounter Discharge Date/Time: 11/03/18 10:10 Interventions: ED Discharge Assessment Last Done: 11/03/18 10:10 Instructions: DI for Shoulder Sprain Activity Restrictions/Additional Instructions: Follow up with your primary care physician in the next 7-10 days if your symptoms are not resolving. Call for a follow up appointment. You may take ibuprofen up to 800 mg every 8 hours and/or Tylenol up to a 1000 mg every 8 hours as needed for pain. You may use ice, alternating with heat as needed to the shoulder. You may put this on 20 minutes at a time 5-6 times daily. Return to the emergency department for new weakness, numbness, loss of sensation, new chest pain, shortness of breath, passing out new neck or back pain or other new or concerning symptoms. Prescriptions: No Action polyethylene glycol 3350 [Miralax] 17 gram powder in packet 17 gram PO DAILY Qty: 30 RF: 0 ibuprofen 800 MG tablet 800 mg PO Q8HP Qty: 0 RF: 0 ASPIRIN (Aspirin EC) 81 mg PO Q DAY Qty: 0 RF: 0 FOLIC ACID/VIT A/VIT B1/VIT (#MULTIVITAMIN) 1 tab PO Qty: 0 RF: 0 Glucose: Test Strips QDAY Qty: 100 RF: 3 ezetimibe [Zetia] 10 mg tablet 10 mg PO QDAY Qty: 90 RF: 1 hydrochlorothiazide 25 mg tablet 25 mg PO QDAY Qty: 90 RF: 1 Referrals: Keara Strong DO [Primary Care Provider] -
[2018-11-03 10:07] VITALS: BP 187/72; PULSE 71; RESP 16; O2SAT 96
== END 2018-11-03 10:10 | disposition home or self-care (01) ==
PROVIDERS: Emergency Provider Emergency Medicine; Family Provider Family Medicine; PCP Family Medicine
DX: S46.911A Strain of unspecified muscle, fascia and tendon at shoulder and upper arm level, right arm, initial encounter (principal); W19.XXXA Unspecified fall, initial encounter; R07.89 Other chest pain
CPT/HCPCS: 73030; 99283

== ENCOUNTER → 2018-11-08 16:06 | Outpatient (CLI) | payer MEDICARE, SELFPAY ==
--- NOTE | 2018-11-08 | DI.MRI.S_ITS ---
PROCEDURE: MR LUMBAR SPINE WO CON INDICATIONS: spinal stenosis lumbar region TECHNIQUE: Noncontrast sagittal T1 spin echo and T2 fast echo, sagittal STIR, axial T1 and T2 fast spin echo through the lumbar spine. In cases with scoliosis, additional coronal T2 fast spin echo may be performed. COMPARISON: None. FINDINGS: Image quality: Excellent. Alignment and Curvature: Mild levoconvex scoliotic curvature is noted. Bone Marrow: Marrow is of normal overall signal. No acute vertebral body compression fractures. Scattered foci are seen, which are hyperintense on T1-weighted and T2-weighted imaging, which are most consistent with benign vertebral body hemangiomas. Spinal Cord: Conus medullaris terminates at the L1 level. Visualized cord demonstrates normal signal and size. Paraspinous Soft Tissues: No paravertebral masses. T12-L1: Normal appearance. L1-L2: No significant abnormality is seen. L2-L3: The disc height is relatively well-preserved. Loss of disc signal is seen. [id number] disc bulge is seen, which is eccentric to the left. Mild facet joint hypertrophy is seen. Moderate bilateral neural foraminal narrowing is seen, right greater than left. Mild central canal narrowing is seen. L3-L4: The disc height is well-preserved. Loss of disc signal is seen at this level. Moderate generalized disc bulge is seen. Mild facet joint hypertrophy is seen. There is associated moderate hypertrophy of the ligamentum flavum. Moderate bilateral neural foraminal narrowing is seen, left worse than right. Moderate central canal narrowing is seen. L4-L5: Moderate loss of disc height is seen. Loss of disc signal is seen. Moderate generalized disc bulge is seen. Moderate facet joint hypertrophy is seen. There is associated mild to moderate hypertrophy of the ligamentum flavum. Moderate bilateral neural foraminal narrowing is seen, right worse than left. Moderate central canal narrowing is seen. L5-S1: The disc height is well-preserved. Loss of disc signal is seen at this level. Mild generalized disc bulge is seen. Moderate facet hypertrophy is seen. No significant neural foraminal or central canal narrowing can be seen. IMPRESSION: Levoconvex scoliotic curvature and multiple levels of lumbar spine degenerative change can be seen. Dictated by: Remington Ag M.D. on 11/08/2018 at 16:29 Approved by: Remington Ag M.D. on 11/08/2018 at 16:33
== END ==
PROVIDERS: Family Provider Family Medicine; PCP Family Medicine; Visit Provider Physical Medicine & Rehabilitation Pain Medicine
DX: M48.062 Spinal stenosis, lumbar region with neurogenic claudication (principal); M47.816 Spondylosis without myelopathy or radiculopathy, lumbar region; M47.817 Spondylosis without myelopathy or radiculopathy, lumbosacral region; M41.86 Other forms of scoliosis, lumbar region
CPT/HCPCS: 72148

== ENCOUNTER → 2018-12-09 12:37 | Outpatient (CLI) | payer MEDICARE, SELFPAY ==
--- NOTE | 2018-12-09 | DI.MRI.S_ITS ---
PROCEDURE: MR ANKLE LT WO CON INDICATIONS: Pain in left ankle and joints of left foot TECHNIQUE: Noncontrast sagittal T1 spin echo and T2 fast spin echo with fat saturation, axial proton density fast spin echo and T2 fast spin echo with fat saturation, coronal T1 spin echo and T2 fast spin echo with fat saturation through the ankle/hindfoot. COMPARISON: None. FINDINGS: Image quality: Excellent. Bones and joints: No bone marrow contusions or fractures. No hindfoot coalitions. No osteochondral injuries of the talar dome. No pathologic joint effusions. Medial structures: The posterior tibialis, flexor digitorum longus, and flexor hallucis longus tendons are intact. Mild fluid adjacent and posterior tibialis and flexor digitorum longus tendons in keeping with tenosynovitis. The posterior tibial neurovascular bundle appears normal within the tarsal tunnel, without extrinsic mass effect. The deep layer (anterior and posterior tibiotalar ligaments) and superficial layer (tibionavicular, tibiospring, and tibiocalcaneal ligaments) of the deltoid ligament appear normal. The spring ligament components (superomedial calcaneonavicular, medioplantar oblique calcaneonavicular, and inferoplantar longitudinal ligaments) are intact. Lateral structures: The anterior talofibular, calcaneofibular, and posterior talofibular ligaments appear intact. More superiorly, the anterior and posterior tibiofibular ligaments appear intact, as is the intermalleolar ligament. The tibiofibular syndesmosis is normal in width at 2 mm or less. The peroneus longus and brevis tendons demonstrate normal location and morphology. There is mild peroneal tenosynovitis. Adjacent bony peroneal tubercle and retrotrochlear prominence are normal in size. The sinus tarsi demonstrates normal fatty signal, without edema, fibrosis, or cyst formation. Visualized sinus tarsi components (cervical ligament, interosseous talocalcaneal ligament, roots of the inferior extensor retinaculum) appear normal. The calcaneonavicular and calcaneocuboid components of the bifurcate ligament appear intact. The dorsal calcaneocuboid ligament appears intact. Anterior structures: The tibialis anterior, extensor hallucis longus, and extensor digitorum longus tendons appear intact. The dorsal talonavicular ligament appears intact. Posterior and plantar structures: Severe Achilles tendinopathy and thickening with internal signal changes at the insertion and distal segment. No complete rupture identified. There is presumed reactive marrow edema in the adjacent calcaneus. Age-indeterminate mild medial band plantar fasciitis IMPRESSION: Severe Achilles tendinopathy/partial rupture. No complete rupture identified. Reactive soft tissue and marrow edema. Medial band plantar fasciitis, age unknown. Mild posterior tibialis, flexor digitorum longus and peroneal tenosynovitis. Dictated by: Fidel Almazan M.D. on 12/11/2018 at 10:25 Approved by: Fidel Almazan M.D. on 12/11/2018 at 10:32
== END ==
PROVIDERS: Family Provider Family Medicine; PCP Family Medicine; Visit Provider Podiatrist
DX: M25.572 Pain in left ankle and joints of left foot (principal); M65.872 Other synovitis and tenosynovitis, left ankle and foot; M72.2 Plantar fascial fibromatosis; S86.012A Strain of left Achilles tendon, initial encounter
CPT/HCPCS: 73721

== ENCOUNTER 2019-01-15 06:49 | Emergency (ER) | payer MEDICARE, SELFPAY ==
[2019-01-15 06:57] VITALS: BP 192/98; PULSE 88; RESP 18; TEMP 36.9; O2SAT 96; BMI 29.0
--- NOTE | 2019-01-15 07:09 | ED.BACK ---
HPI - Back Pain/Injury General Chief Complaint: Back Pain/Injury Stated Complaint: fell tuesday back pain Time Seen by Provider: 01/15/19 07:09 Source: patient Mode of arrival: ambulatory Limitations: no limitations History of Present Illness HPI Narrative: Patient is a 78-year-old female here for evaluation of left midback pain. She states that approximately 5 days ago she tripped when she was out in the yd. She states that she ?pulled? her back. States she did not fall in this area. Did not hit her head. This did sound like it was a mechanical incident. Since then she has had pain in her left mid back. She states she has hurt her back in the past for this was many years ago. No fevers. No urinary symptoms. No change in bowel habits. She has tried heat nice and a couple doses of ibuprofen prior to arrival. Related Data Home Medications Medication Instructions Recorded Confirmed ASPIRIN (Aspirin EC) 81 mg PO Q DAY #0 12/01/10 11/10/18 FOLIC ACID/VIT A/VIT B1/VIT 1 tab PO #0 12/01/10 11/10/18 (#MULTIVITAMIN) ibuprofen 800 mg tablet 800 mg PO Q8H PRN tab 11/10/18 11/10/18 Previous Rx's Medication Instructions Recorded Glucose: Test Strips ea QDAY #100 06/29/17 ezetimibe 10 mg tablet 10 mg PO QDAY #90 tab 09/21/18 hydrochlorothiazide 25 mg tablet 25 mg PO QDAY #90 tab 09/29/18 cyclobenzaprine 10 mg PO TID PRN #12 tab 01/15/19 lidocaine 1 patch TOP DAILY PRN #1 each 01/15/19 Allergies Allergy/AdvReac Type Severity Reaction Status Date / Time No Known Drug Allergies Allergy Verified 11/10/18 13:19 Review of Systems Constitutional Denies fever(s), Denies headache(s) and Denies weakness ENT Ears, Nose, Mouth, and Throat: Denies headache(s) Cardiovascular Denies chest pain and Denies dyspnea Respiratory Denies dyspnea Gastrointestinal Gastrointestinal: Denies abdominal pain, Denies change in stool character, Denies nausea and Denies vomiting Genitourinary Denies dysuria, Denies urinary incontinence, Denies urinary hesitancy and Denies urinary urgency Musculoskeletal Reports back pain, Denies myalgias and Denies arthralgias Integumentary/Breasts Denies rash Neurologic Denies behavioral changes, Denies headache(s), Denies radicular pain, Denies paresthesias and Denies weakness Psychiatric Denies behavioral changes Hematologic/Lymphatic Denies easy bleeding and Denies easy bruising COUNT INCLUDES THE [facility] Medical History Diverticular disease (Acute Unknown) Hypertension (Acute Unknown) Hyperglycemia (Chronic Unknown) NAFLD (nonalcoholic fatty liver disease) (Chronic Unknown) EASTON (nonalcoholic steatohepatitis) (Chronic 10/2014) Carpal tunnel syndrome (Resolved Unknown) Hyperlipemia (Resolved Unknown) Social History Smoking Status: Never smoker alcohol intake: never Exam Initial Vital Signs Initial Vital Signs: Vital Signs Temperature 98.4 F 01/15/19 06:57 Pulse Rate 88 01/15/19 06:57 Respiratory Rate 18 01/15/19 06:57 Blood Pressure 192/98 H 01/15/19 06:57 Pulse Oximetry 96 01/15/19 06:57 Const General: cooperative, comfortable, well developed, well groomed and No acute distress Orientation: alert and awake HENNY Head: normal to inspection and normocephalic Resp Effort & Inspection: normal respiratory effort Cardio Rate: regular rate Back/Spine/Pelvis Thoracic/Lumbar Spine: paraspinal tenderness (Left thoracic region), thoraco-lumbar spasm (Left paraspinal), No thoracic spinal tenderness and No lumbar spinal tenderness Sacroiliac Joints: nontender Skin Other: Bruising on her right forearm secondary to the fall no breaks in the skin. Neuro General: alert, awake and oriented x3 Cognition: normal cognition Speech: speech normal Gait: normal gait Extrem General: normal to inspection and capillary refill normal Psych Appearance: grossly normal and well kempt Course Vital Signs - 8 hr 01/15/19 06:57 Temperature 98.4 F Pulse Rate 88 Respiratory Rate 18 Blood Pressure 192/98 H Pulse Oximetry 96 MDM - Back Pain/Injury MDM Narrative Medical decision making narrative: Patient does have left-sided paraspinal muscle tenderness along with fullness in this area. She has no red flag symptoms concerning for cauda equina. I have low suspicion for fracture. She is not short of breath. She did not hit this area when she fell. Low suspicion for rib fracture. We did discuss the use of anti-inflammatories. She was given a Toradol shot here in the emergency department. Also sent home with muscle relaxers and lidocaine patches. She was given return precautions. Will hold on radiologic studies for now. Patient expressed understanding and agreement with plan. Discharge Plan Departure Patient Disposition: Home Clinical Impression: Back pain Qualifiers: Back pain location: thoracic back pain Chronicity: acute Back pain laterality: left Qualified Code(s): M54.6 - Pain in thoracic spine Instructions: DI for Back Strain or Sprain Activity Restrictions/Additional Instructions: Recommend you continue with the anti-inflammatories such as Motrin or Naprosyn like we discussed. You can also add Tylenol to this. You can also use heat and ice and light stretching. Use the medications you were given a prescription for today as directed. Contact your primary care doctor for follow-up. Return to the emergency department for any new or worsening symptoms Prescriptions: New cyclobenzaprine 10 mg tablet 10 mg PO TID PRN (Reason: muscle spasm) Qty: 12 RF: 0 lidocaine 4 % adhesive patch,medicated 1 patch TOP DAILY PRN (Reason: pain) Qty: 1 RF: 0 No Action ibuprofen 800 mg tablet 800 mg PO Q8H PRNRF: 0 ASPIRIN (Aspirin EC) 81 mg PO Q DAY Qty: 0 RF: 0 FOLIC ACID/VIT A/VIT B1/VIT (#MULTIVITAMIN) 1 tab PO Qty: 0 RF: 0 Glucose: Test Strips QDAY Qty: 100 RF: 3 ezetimibe [Zetia] 10 mg tablet 10 mg PO QDAY Qty: 90 RF: 1 hydrochlorothiazide 25 mg tablet 25 mg PO QDAY Qty: 90 RF: 1 Referrals: Keara Strong DO [Primary Care Provider] -
[2019-01-15] MEDS: CYCLOBENZAPRINE 10 MG TABLET PO (07:38)
[2019-01-15] MEDS: KETOROLAC 60 MG/2 ML VIAL 30 MG IM (07:38)
[2019-01-15 08:03] VITALS: PULSE 79; RESP 15; O2SAT 99
== END 2019-01-15 08:03 | disposition home or self-care (01) ==
PROVIDERS: Emergency Provider Emergency Medicine; Family Provider Family Medicine; PCP Family Medicine
DX: M54.6 Pain in thoracic spine (principal); W01.0XXA Fall on same level from slipping, tripping and stumbling without subsequent striking against object, initial encounter
CPT/HCPCS: 96372; 99282; 99283; J1885

== ENCOUNTER → 2019-01-18 08:56 | Outpatient (CLI) | payer MEDICARE, SELFPAY ==
[2019-01-18 09:55] LABS: Hemoglobin A1C% w Est Avg Glu 6.4 % (4.0-6.0)
[2019-01-18 10:10] LABS: Alanine Aminotransferase 57 IU/L (9-52); Albumin 3.9 g/dL (3.5-5.0); Albumin Globulin Ratio 1.2 (1.0-2.8); Alkaline Phosphatase 134 U/L (38-126); Aspartate Aminotransferase 80 IU/L (14-36); BUN Creatinine Ratio 21.4 (6-22); Bilirubin Total 1.1 mg/dL (0.2-1.3); Blood Urea Nitrogen 15 mg/dL (7-17); Calcium 9.2 mg/dL (8.4-10.2); Carbon Dioxide 30 mmol/L (22-32); Chloride 103 mmol/L (98-107); Cholesterol 178 mg/dL (140-199); Estimated Glomerular Filt Rate > 60.0 mL/min (>60); Globulin 3.3 g/dL (1.7-4.1); Glucose 121 mg/dL (80-110); HDL Cholesterol 67 mg/dL (40-60); HEMOLYSIS 15 (0-50); LDL Cholesterol Calculated 89 mg/dL (<100); Sodium 140 mmol/L (137-145); Total Protein 7.2 g/dL (6.3-8.2); Triglycerides 110 mg/dL (35-150)
== END ==
PROVIDERS: PCP Family Medicine; Visit Provider Family Medicine
DX: E11.9 Type 2 diabetes mellitus without complications (principal); E78.2 Mixed hyperlipidemia; I10 Essential (primary) hypertension; K59.00 Constipation, unspecified; K75.4 Autoimmune hepatitis
CPT/HCPCS: 36415; 80053; 80061; 83036

== ENCOUNTER → 2019-01-29 11:37 | Outpatient (CLI) | payer MEDICARE, SELFPAY ==
--- NOTE | 2019-01-29 11:38 | DI.RAD.S_ITS ---
PROCEDURE: XR THORACIC SPINE 3V INDICATIONS: Scoliosis, back pain TECHNIQUE: 3 views of the thoracic spine were acquired. COMPARISON: None. FINDINGS: Bones: There is mild T8 vertebral body height loss on the frontal view, technically age-indeterminate. Elsewhere, no definite fracture although limited evaluation of the upper thoracic spine given scoliosis. Dextroscoliosis is noted, centered at the lower thoracic spine. Soft tissues: No paravertebral stripe thickening. IMPRESSION: Mild T8 compression fracture, technically age-indeterminate. Scoliosis as above. Diffuse discogenic changes. Dictated by: Fidel Almazan M.D. on 01/29/2019 at 13:21 Approved by: Fidel Almazan M.D. on 01/29/2019 at 13:23
== END ==
PROVIDERS: PCP Family Medicine; Visit Provider Family Medicine
DX: M54.6 Pain in thoracic spine (principal); M48.54XA Collapsed vertebra, not elsewhere classified, thoracic region, initial encounter for fracture; M41.84 Other forms of scoliosis, thoracic region
CPT/HCPCS: 72072

== ENCOUNTER → 2019-04-13 14:01 | Outpatient (CLI) | payer MEDICARE, SELFPAY | PROVIDERS: PCP Family Medicine; Visit Provider Family Medicine | DX: Z13.820 Encounter for screening for osteoporosis (principal); M85.852 Other specified disorders of bone density and structure, left thigh; Z78.0 Asymptomatic menopausal state | CPT/HCPCS: 77080 ==

== ENCOUNTER → 2019-04-24 09:43 | Outpatient (CLI) | payer MEDICARE, SELFPAY ==
--- NOTE | 2019-04-24 | DI.MG.S_ITS ---
BILATERAL DIGITAL SCREENING MAMMOGRAM 3D/2D WITH CAD: 04/24/2019 CLINICAL: Routine screening. Family history of breast cancer. Comparison is made to exams dated: 04/12/2018 mammogram, 04/07/2017 mammogram, and 04/01/2016 mammogram - [facility]. There are scattered fibroglandular elements in both breasts. Current study was also evaluated with a Computer Aided Detection (CAD) system. No significant masses, calcifications, or other findings are seen in either breast. There has been no significant interval change. IMPRESSION: NEGATIVE There is no mammographic evidence of malignancy. A 1 year screening mammogram is recommended. This exam was interpreted at Station ID: [id number]. NOTE: For mammograms, a report in lay terms will be sent to the patient. Approximately 15% of breast malignancies will not be visualized mammographically. In the management of a palpable breast mass, a negative mammogram must not discourage biopsy of a clinically suspicious lesion. Electronically Signed By: Priya robins/garrett:04/24/2019 10:33:31 letter sent: Normal Exam ACR BI-RADS Category 1: Negative [id number]
== END ==
PROVIDERS: PCP Family Medicine; Visit Provider Family Medicine
DX: Z12.31 Encounter for screening mammogram for malignant neoplasm of breast (principal); Z80.3 Family history of malignant neoplasm of breast
CPT/HCPCS: 77063; 77067

== ENCOUNTER → 2020-02-29 08:46 | Outpatient (CLI) | payer MEDICARE, SELFPAY ==
[2020-02-29 10:05] LABS: Hemoglobin A1C% w Est Avg Glu 6.6 % (4.0-6.0)
[2020-02-29 13:04] LABS: Alanine Aminotransferase 42 IU/L (<35); Albumin 4.2 g/dL (3.5-5.0); Albumin Globulin Ratio 1.3 (1.0-2.8); Alkaline Phosphatase 139 U/L (38-126); Aspartate Aminotransferase 79 IU/L (14-36); BUN Creatinine Ratio 23.9 (6-22); Bilirubin Total 0.9 mg/dL (0.2-1.3); Blood Urea Nitrogen 16 mg/dL (7-17); Calcium 9.8 mg/dL (8.4-10.2); Carbon Dioxide 29 mmol/L (22-32); Chloride 103 mmol/L (98-107); Estimated Glomerular Filt Rate > 60.0 mL/min (>60); Globulin 3.2 g/dL (1.7-4.1); Glucose 158 mg/dL (80-110); HEMOLYSIS < 15 (0-50); Potassium 3.5 mmol/L (3.4-5.1); Sodium 139 mmol/L (137-145); Total Protein 7.4 g/dL (6.3-8.2)
== END ==
PROVIDERS: PCP Family Medicine; Referring Provider Family Medicine; Visit Provider Family Medicine
DX: E78.2 Mixed hyperlipidemia (principal); I10 Essential (primary) hypertension; R73.9 Hyperglycemia, unspecified
CPT/HCPCS: 36415; 80053; 83036

== ENCOUNTER → 2020-03-11 15:17 | Outpatient (CLI) | payer MEDICARE, SELFPAY ==
--- NOTE | 2020-03-11 15:19 | DI.RAD.S_ITS ---
PROCEDURE: XR HIP W PEL IF DONE RT 2V INDICATIONS: Progressive right weight-bearing hip pain TECHNIQUE: AP pelvis with frogleg lateral view of the right hip. COMPARISON: [facility], CR, XR HIP W PEL IF DONE RT 2V, 04/16/2018, 13:34. FINDINGS: Bones: No acute fractures or dislocations. Pelvic ring appears intact. No suspicious bony lesions. Mild symmetric degenerative changes are seen in the hips with superior joint space narrowing and marginal osteophyte formation. Degenerative changes are seen in the lower lumbar spine with mild levoconvex curvature. The sacrum is obscured by overlying bowel gas. Mild degenerative changes are seen in the sacroiliac joints. Soft tissues: The visualized bowel gas pattern is normal. No suspicious soft tissue calcifications. Surgical clips are seen in the right abdomen. IMPRESSION: No acute osseous abnormality. 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 Multilevel degenerative changes and levoconvex curvature in the included lower lumbar spine. Dictated by: Oswaldo Carter M.D. on 03/11/2020 at 16:58 Approved by: Oswaldo Carter M.D. on 03/11/2020 at 17:01
== END ==
PROVIDERS: PCP Family Medicine; Referring Provider Family Medicine; Visit Provider Family Medicine
DX: M25.551 Pain in right hip (principal); M16.0 Bilateral primary osteoarthritis of hip; M47.818 Spondylosis without myelopathy or radiculopathy, sacral and sacrococcygeal region; M47.817 Spondylosis without myelopathy or radiculopathy, lumbosacral region
CPT/HCPCS: 73502

== ENCOUNTER → 2020-04-28 10:23 | Outpatient (CLI) | payer MEDICARE, SELFPAY ==
--- NOTE | 2020-04-28 | DI.MG.S_ITS ---
BILATERAL DIGITAL SCREENING MAMMOGRAM 3D/2D WITH CAD: 04/28/2020 CLINICAL: Routine screening. Family history of breast cancer. Comparison is made to exams dated: 04/24/2019 mammogram, 04/12/2018 mammogram, and 04/07/2017 mammogram - [facility]. There are scattered fibroglandular elements in both breasts. Current study was also evaluated with a Computer Aided Detection (CAD) system. There are new grouped fine calcifications in the left breast at 4 o'clock middle depth. No other significant masses, calcifications, or other findings are seen in either breast. IMPRESSION: INCOMPLETE: NEEDS ADDITIONAL IMAGING EVALUATION The new grouped fine calcifications in the left breast are indeterminate. Mediolateral, spot magnification, and additional views are recommended. This exam was interpreted at Station ID: [id number]. NOTE: For mammograms, a report in lay terms will be sent to the patient. Approximately 15% of breast malignancies will not be visualized mammographically. In the management of a palpable breast mass, a negative mammogram must not discourage biopsy of a clinically suspicious lesion. Electronically Signed By: Sagar saldana/garrett:04/28/2020 11:48:38 letter sent: Additional Imaging Needed ACR BI-RADS Category 0: Incomplete [id number]
== END ==
PROVIDERS: PCP Family Medicine; Referring Provider Family Medicine; Visit Provider Family Medicine
DX: Z12.31 Encounter for screening mammogram for malignant neoplasm of breast (principal); Z80.3 Family history of malignant neoplasm of breast
CPT/HCPCS: 77063; 77067

== ENCOUNTER → 2020-05-08 11:40 | Outpatient (CLI) | payer MEDICARE, SELFPAY ==
--- NOTE | 2020-05-08 11:42 | DI.RAD.S_ITS ---
PROCEDURE: XR SHOULDER LT MIN 2V INDICATIONS: pain, decreased movement TECHNIQUE: 3 views of the shoulder were acquired. COMPARISON: [facility], CR, XR SHOULDER RT MIN 2V, 11/03/2018, 9:08. FINDINGS: Bones: No fractures or dislocations. No suspicious bony lesions. Visualized ribs appear intact. Moderate joint narrowing with periarticular osteophyte formation. Inferior subluxation of the humeral head. Soft tissues: No suspicious soft tissue calcifications. IMPRESSION: 1. Inferior subluxation of the humeral head. 2. 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 Dictated by: Piyush Odell [facility] Interpreted: German Martino MD on 05/08/2020 at 12:17 Approved by: German Martino M.D. on 05/08/2020 at 14:22
== END ==
PROVIDERS: PCP Family Medicine; Referring Provider Family Medicine; Visit Provider Family Medicine
DX: S43.032A Inferior subluxation of left humerus, initial encounter (principal); S46.012A Strain of muscle(s) and tendon(s) of the rotator cuff of left shoulder, initial encounter; M19.012 Primary osteoarthritis, left shoulder; X58.XXXA Exposure to other specified factors, initial encounter
CPT/HCPCS: 73030

== ENCOUNTER → 2020-05-22 11:29 | Outpatient (CLI) | payer MEDICARE, SELFPAY ==
--- NOTE | 2020-05-22 11:30 | DI.MRI.S_ITS ---
PROCEDURE: MR SHOULDER LT WO CON INDICATIONS: Progressive left shoulder pain and instability TECHNIQUE: Noncontrast oblique coronal T2 fast spin echo with fat saturation, oblique sagittal T1 spin echo and T2 fast spin echo with fat saturation, axial T1 spin echo and T2 fast spin echo with fat saturation through the shoulder. COMPARISON: [facility], CR, XR SHOULDER LT MIN 2V, 05/08/2020, 11:31. FINDINGS: Image quality: Excellent. Rotator cuff: There is partial-thickness tear of the supraspinatus tendon involving the footprint. infraspinatus and subscapularis tendons appear thickened and demonstrate heterogeneous signal consistent with tendinitis. Sagittal images demonstrate no the rotator cuff muscle atrophy. Bones and bursae: No bone marrow contusions or fractures. Moderate to severe acromioclavicular and glenohumeral joint degeneration. The acromion demonstrates conventional anatomy, without an os acromiale. There is subacromial-subdeltoid or subcoracoid bursal fluid, consistent with bursitis. There is a small glenohumeral joint effusion. Capsule and soft tissues: There is degenerative fraying of the glenoid labrum. In the absence of intra-articular contrast, the glenohumeral ligaments appear intact. The long head of the biceps tendon appears thickened, irregular and demonstrates heterogeneous signal, consistent with tendinitis. The rotator interval appears normal, without fibrosis. The coracohumeral ligament is normal in thickness. IMPRESSION: 1. Partial thickness tear of the supraspinatus tendon. 2. Infraspinatus and subscapularis tendinitis. 3. Tendinitis of the long head of the biceps tendon. 4. Moderate to severe acromioclavicular and glenohumeral joint degeneration. 5. Degenerative fraying of the glenoid labrum. 6. Subacromial/subdeltoid and subcoracoid bursal fluid consistent with bursitis. Dictated by: Kamilla Okeefe M.D. on 05/22/2020 at 13:49 Approved by: Kamilla Okeefe M.D. on 05/22/2020 at 17:36
== END ==
PROVIDERS: PCP Family Medicine; Referring Provider Family Medicine; Visit Provider Family Medicine
DX: M19.012 Primary osteoarthritis, left shoulder (principal); M75.112 Incomplete rotator cuff tear or rupture of left shoulder, not specified as traumatic; M75.22 Bicipital tendinitis, left shoulder; M75.52 Bursitis of left shoulder
CPT/HCPCS: 73221

== ENCOUNTER → 2020-05-26 09:23 | Outpatient (CLI) | payer MEDICARE, SELFPAY ==
--- NOTE | 2020-05-26 | DI.MG.S_ITS ---
UNILATERAL LEFT DIGITAL DIAGNOSTIC MAMMOGRAM 3D/2D WITH ADDITIONAL VIEWS: 05/26/2020 CLINICAL: Additional evaluation requested from prior study. Comparison is made to exams dated: 04/28/2020 mammogram, 04/24/2019 mammogram, and 04/12/2018 mammogram - [facility]. There are scattered fibroglandular elements in left breast. There are 0.3 cm grouped fine dystrophic punctate calcifications in the left breast at 4 o'clock middle depth. These are seen in additional views. There may be an associated oval asymmetry. There also is an incidentally noted oval equal density asymmetry with a spiculated margin in the left breast at 2 o'clock middle depth. No other significant masses or calcifications are seen in the breast. IMPRESSION: INCOMPLETE: NEEDS ADDITIONAL IMAGING EVALUATION The 0.3 cm grouped fine dystrophic punctate calcifications in the left breast at 4 o'clock middle depth are indeterminate. An ultrasound is recommended to assess the possible associated asymmetry. The oval equal density asymmetry in the left breast at 2 o'clock middle depth is indeterminate. An ultrasound is recommended. Ultrasound could not be performed today, so the patient will return tomorrow for ultrasound of both areas. Findings and recommendations were conveyed to the patient at time of exam. This exam was interpreted at Station ID: [id number]. NOTE: For mammograms, a report in lay terms will be sent to the patient. Approximately 15% of breast malignancies will not be visualized mammographically. In the management of a palpable breast mass, a negative mammogram must not discourage biopsy of a clinically suspicious lesion. Electronically Signed By: Gina han/:05/26/2020 10:42:59 ACR BI-RADS Category 0: Incomplete [id number]
== END ==
PROVIDERS: PCP Family Medicine; Referring Provider Family Medicine; Visit Provider Family Medicine
DX: R92.8 Other abnormal and inconclusive findings on diagnostic imaging of breast (principal); R92.1 Mammographic calcification found on diagnostic imaging of breast; N64.89 Other specified disorders of breast
CPT/HCPCS: 77065; G0279

== ENCOUNTER → 2020-05-27 09:34 | Outpatient (CLI) | payer MEDICARE, SELFPAY ==
--- NOTE | 2020-05-27 10:13 | DI.US.S_ITS ---
Diagnostic Imaging [address] [place] [id number] PHONE: [phone] Patient Name: VANCE ROBERTS date: 1940 Sex: F Attending Physician: Darrin Indications: Date: 05/27/2020 10:31 At the request of: CON GRANADOS Procedure: US breast LT limited ULTRASOUND OF LEFT BREAST: 05/27/2020 CLINICAL: Patient returns today to evaluate a focal asymmetry in the left breast. Comparison is made to exams dated: 05/26/2020 mammogram, 04/28/2020 mammogram, 04/24/2019 mammogram, 04/12/2018 mammogram, 04/07/2017 mammogram, and 04/01/2016 mammogram - [facility]. Color flow and real-time ultrasound of the left breast were performed. Mckinnon scale images of the real-time examination were reviewed. There is a 0.2 cm x 0.1 cm x 0.2 cm oval cyst in the left breast at 2 o'clock middle depth 9 cm from the nipple. This oval cyst is hypoechoic with internal echoes and no posterior acoustic shadowing or enhancement. This may correlate with mammography findings. Color flow imaging demonstrates that there is no vascularity present. IMPRESSION: PROBABLY BENIGN The 0.2 cm x 0.1 cm x 0.2 cm oval cyst in the left breast resembles a complicated cyst and is probably benign. This may or may not correlate with grouped dystrophic calcifications or focal asymmetry seen on recent mammograms as they are is close proximity to each other. A follow-up left mammogram to include spot magnification views of the calcifications as well as spot compression views of the focal asymmetry and left ultrasound in 6 months is recommended to demonstrate stability. Findings and recommendations were conveyed to the patient during today's evaluation. This exam was interpreted at Station ID: [id number]. Electronically Signed By: Alexander Pop M.D. aty/:05/27/2020 10:51:22 Continued Report - Page 2 of 2 Patient Name: VANCE ROBERTS date: 1940 Sex: F Attending Physician: Darrin Indications: Date: 05/27/2020 10:31 At the request of: CON GRANADOS Procedure: US breast LT limited letter sent: Followup Recommended Ultrasound BI-RADS: 3 Probably benign
== END ==
PROVIDERS: PCP Family Medicine; Referring Provider Family Medicine; Visit Provider Family Medicine
DX: R92.8 Other abnormal and inconclusive findings on diagnostic imaging of breast (principal); N60.02 Solitary cyst of left breast
CPT/HCPCS: 76642

== ENCOUNTER 2020-07-03 09:00 | Outpatient (RCR) | payer MEDICARE, SELFPAY ==
--- NOTE | 2020-03-20 17:30 | PT.OIE ---
Current Diagnoses Muscle weakness (generalized) (03/20/20) Strain of muscle(s) and tendon(s) of the rotator cuff of left shoulder, initial encounter (03/20/20) Past Medical History (Last Updated 03/11/20 @ 15:12 by Darion Clifford DO) Carpal tunnel syndrome (Resolved Unknown) Cellulitis of toe of right foot (Acute) Diverticular disease (Acute Unknown) Encounter for Medicare annual wellness exam (Acute) Hyperglycemia (Chronic Unknown) Hyperlipemia (Resolved Unknown) Hypertension (Acute Unknown) NAFLD (nonalcoholic fatty liver disease) (Chronic Unknown) EASTON (nonalcoholic steatohepatitis) (Chronic 10/2014) 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(Acute) Right hip pain (Acute) Right hip pain (Acute) Strain of tendon of left rotator cuff (Acute) Past Surgical History (Last Reviewed 08/28/19 @ 16:46 by Darion Clifford DO) History of carpal tunnel release (Resolved Unknown) Hx of appendectomy (Resolved Unknown) Hx of cataract surgery (Resolved Unknown) Status post cholecystectomy Visit Care Team Role Provider Type Darion Clifford DO Attending Provider Physician Primary Care Provider Referring Provider Specialty: [facility] Address: [address] [place] [address] Email: [email or web address] Physical Therapy Initial Evaluation PT-OP-A Visit Information Start: 03/18/20 18:29 Freq: Status: Active Protocol: Document 03/20/20 08:14 LRN (Rec: 03/20/20 09:12 SAMIAN [id number]) Out-Patient Physical Therapy Visit Information Visit Information Visit Type Initial Evaluation Visit Start Time 08:15 Visit Stop Time 09:04 Total Visit Minutes 49 Visit Number 1 Evaluation Information Evaluation Date 03/20/20 Precautions Precautions Somewhat recent injury to the R shoulder. Scoliosis, Osteopenia, Thoracic compression fracture 12/2018. PT-OP-B Current Condition Start: 03/18/20 18:29 Freq: Status: Active Protocol: Document 03/20/20 08:14 LRN (Rec: 03/20/20 09:12 LRN [id number]) Current Condition History of Current Condition Onset Date 9 months ago Current Complaints L shoulder, decreased use History of Current Condition L handed. States she thinks she pulled a muscle in her arm . States she was helping someone put some wood in a trunk and felt something strain when she did it. She was already doing PT for her R shoulder that is now normal. She was at a wellness check when it was recommended that she have therapy for her L shoulder. Prior Treatments and Tests R shoulder therapy after tripping over her dog and falling. Future Testing and Treatments Planned None Treatment Goals Patient/Caregiver Goals Pt goals with therapy is to be able to -lift arm to get things out of 1st shelf from the bottom and above, -improve dressing ability, -able to cut food without pain , -to sleep on the dominant L side (usually sleeps on that side). Prior Functional Status Baseline Function- ADL's Independent Baseline Function- Mobility Independent Baseline Function- Other Slept on the L side at nighttime. Current Functional Impairments (Reported) Functional Limitations- ADL's Difficulty cutting food with dominant L hand. Difficulty putting coat/tops on. Functional Limitations- Other Not able to sleep on L side. Personal Factors Other Personal Factors That May Effect Son is at home assisting her, Therapy/Recovery Thoracic Compression fracture 12/2018, Osteopenia 03/2020. PT-OP-C Subjective Start: 03/18/20 18:29 Freq: Status: Active Protocol: Document 03/20/20 08:14 LRN (Rec: 03/20/20 09:12 LRN [id number]) Patient Questionnaires Quick Dash- Upper Extremity Quick Dash UE Score 20 Quick Dash UE Impairment 20 to 39% Impaired (Score 20- 39) OP-PT Pain Assessment Location Left Shoulder Pain Location Details L shoulder joint, deep inside Intensity 3 Scale Used Numeric (0 - 10) Description Aching Description- Other Worsens with reaching and sleeping on it. Frequency Constant Pain Aggravating Factors Position,ADL's,Activity, Lifting Pain Alleviating Factors Medication Other Pain Alleviating Factors Tylenol occasionally PT-OP-E Functional Tests Start: 03/18/20 18:29 Freq: Status: Active Protocol: Document 03/20/20 08:14 LRN (Rec: 03/21/20 14:18 LRN [id number]) Functional Tests Apley's Scratch Test Action 1- Left Reach between spine & lateral border of scapula Action 1- Right Reach to Spine Action 2- Left T1 Action 2- Right T2 Action 3- Left T9 Action 3- Right T7 PT-OP-H Neuro Start: 03/18/20 18:29 Freq: Status: Active Protocol: Document 03/20/20 08:14 LRN (Rec: 03/21/20 14:18 LRN [id number]) Sensation Evaluation Gross Sensation Gross Sensation WNL Deep Tendon Reflex & Clonus Assessment Deep Tendon Reflex Bilateral Bicep Deep Tendon Reflex 2+ Normal PT-OP-J Posture/Palpation/Skin Start: 03/18/20 18:29 Freq: Status: Active Protocol: Document 03/20/20 08:14 LRN (Rec: 03/21/20 14:18 LRN [id number]) Posture Evaluation Position Standing L-Spine Posture Increased Lordosis Scapula Posture (L) Rotated Down Weight Distribution Weight Shifted Anterior Comments Posture Comments C-Curve of the thoracic spine with apex on the right. Protruding abdomen posture. L shoulder is low. PT-OP-K Range of Motion Start: 03/18/20 18:29 Freq: Status: Active Protocol: Document 03/20/20 08:14 LRN (Rec: 03/21/20 14:18 LRN [id number]) Cervical Spine Range of Motion Cervical Spine Active Degrees Testing Position Sitting Flexion 58 Extension 47 Rotation Left 62 Rotation Right 62 Lateral Flexion Left 20 Lateral Flexion Right 20 Shoulder Goniometric Range of Motion Shoulder Right Passive Shoulder ROM WFL Yes Testing Position Supine Flexion 168 Abduction 140 External Rotation at 90 degrees 68 Abduction Internal Rotation 62 Left Passive Shoulder ROM WFL No Testing Position Supine Flexion 144 Abduction 90 External Rotation at 90 degrees 42 Abduction Internal Rotation 62 Right Active Shoulder ROM WFL Yes Testing Position Sitting Flexion 145 Abduction 138 Internal Rotation Behind Back (text) T7 Left Active Shoulder ROM WFL No Testing Position Sitting Flexion 137 Abduction 70 Internal Rotation Behind Back (text) T9 PT-OP-M Strength Start: 03/18/20 18:29 Freq: Status: Active Protocol: Document 03/20/20 08:14 LRN (Rec: 03/21/20 14:18 LRN [id number]) Shoulder Strength Shoulder Manual Muscle Testing Right Flexion 4+ Good+ Abduction (C5) 5 Normal External Rotation 3+ Fair+ Internal Rotation 3+ Fair+ Left Flexion 3- Fair- Abduction (C5) 2+ Poor+ External Rotation 3+ Fair+ Internal Rotation 3+ Fair+ Elbow/Forearm Strength Elbow and Forearm Manual Muscle Testing Right Comments Generally 5/5. Left Comments Generally 5/5. PT-OP-Q Treatments Start: 03/18/20 18:29 Freq: Status: Active Protocol: Document 03/20/20 08:14 LRN (Rec: 03/20/20 09:12 LRN [id number]) Self-Care/Home Management Treatment Education Patient Education Home Exercise Program Other Education Discussed results of evaluation, goals, POC. I/S pt in home ex of: Supine: Active windshield wipe ex and ER/IR stretching. Mentioned she could do flex stretch if she wanted to. I/S pt to not stretch into pain. PT-OP-T Assessment and Plan Start: 03/18/20 18:29 Freq: Status: Active Protocol: Document 03/20/20 08:14 LRN (Rec: 03/20/20 09:12 LRN [id number]) Physical Therapy Assessment Rehab Potential Rehabilitation Potential Good Evaluation Complexity Number of Personal Factors/Comorbidities 1-2 Number of Body Systems Impaired 4 or More Clinical Presentation at Evaluation Evolving Impairments Impairments Activity Tolerance,Functional Activities,Pain,ROM,Soft Tissue Mobility,Strength Goals Five Impairment Pt not able to sleep at prior level (usually sleeps on L side). Short Term Goal (STG) Pt will be educate in various positions for sidelie sleeping to alleviate L shoulder pain during the night. STG Duration 03/24/20 Sleeve Setter Lockstitch Goal (LTG) Pt will be able to sleep comfortably on the dominant L side. LTG Duration 05/19/20 Four Impairment Decreased L shoulder ROM (PROM degs in sup: flex 144, AB 90, ER 42, ER 62) Short Term Goal (STG) Improve L shoulder PROM to normal (R shoulder in sup in degs: flex 150, AB 180, ER 62, IR 80). STG Duration 03/31/20 Half-Way Goal (LTG) Pt will be able to reach up to the 1st shelf from the bottom without pain. LTG Duration 05/19/20 Three Impairment Pain with functional use L UE cutting food to eat. Short Term Goal (STG) Improve L shoulder strength to no less than 3+/5 within available range STG Duration 04/21/20 Half-Way Goal (LTG) Pt will be able to cut food without pain using her L UE. LTG Duration 05/19/20 Two Impairment Decreased L shoulder AROM limiting dressing ability. Short Term Goal (STG) Improve L shoulder AROM ( Initial in sitting: flex 137, AB 70, IR to T9, ER to T1) STG Duration 04/21/20 Sleeve Setter Lockstitch Goal (LTG) Pt will be able to put on tops without L shoulder pain. LTG Duration 05/19/20 One Impairment Pt lacks an appropriate self care HEP. Sleeve Setter Lockstitch Goal (LTG) Pt will be independent with a self care HEP. 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 She is guarded with movement and initially appeared to have signs of frozen shoulder, but with time was able to relax and demonstrated only ROM restriction with L shoulder IR flex, and AB. She does have tenderness to palpation of the Supraspinatus and Infraspinatus attachment at the head of the humerus. She demonstrates a dysfunctional scapulohumeral rhythm, indicating poor scapular stabilization. The pt will benefit from skilled physical therapy to improve her shoulder mobility, strength and functional ability. Further imaging may be necessary to rule out internal derangement of her shoulder if her pain complaints continue to be of pain deep in the joint. Physical Therapy Plan Frequency and Duration Frequency of Treatment 2x/Week Plan of Care Start Date 03/20/20 Plan of Care End Date 05/19/20 Therapeutic Interventions Therapeutic Interventions Home Exercise Program,Manual Therapy,Neuromuscular Re- education,Patient/Caregiver Education,Self-Care/Home Management,Soft Tissue Mobilization,Therapeutic Exercises Modalities Cold Pack/Ice Massage,Electric Stimulation,Hot Packs, Iontophoresis,Ultrasound Other Therapeutic Interventions Iontophoresis with 4mg/mL of Dexamethasone with Sodium Phosphate Next Visit Focus/Plan Next Note Type Treatment Note Next Visit Plan Progress R shoulder rehab for L shoulder impingement syndrome. Review and issue HEP for: L shoulder ER/IR ROM and stretching. STM TrP rx to L UT/posterior scalenes, Supraspinatus. Initiate HEP of shoulder flex & codmans ex. Assess joint mobility with mobilization as needed. Start Scapular ex's of shoulder rolls and scap stabilization. Stretch to subscapularis if needed. End with CP and possibly EStim if needed for pain management.
--- NOTE | 2020-03-20 17:30 | PT.OPPOC ---
Physical, Occupational & Speech Therapy At [facility] Current Diagnoses Muscle weakness (generalized) (03/20/20) Strain of muscle(s) and tendon(s) of the rotator cuff of left shoulder, initial encounter (03/20/20) Visit Care Team Role Provider Type Darion Clifford DO Attending Provider Physician Primary Care Provider Referring Provider Specialty: [facility] Address: [address] [place] [address], [facility] Email: [email or web address] Plan Of Care PT-OP-T Assessment and Plan Start: 03/18/20 18:29 Freq: Status: Active Protocol: Document 03/20/20 08:14 LRN (Rec: 03/20/20 09:12 LRN [id number]) Physical Therapy Assessment Rehab Potential Rehabilitation Potential Good Evaluation Complexity Number of Personal Factors/Comorbidities 1-2 Number of Body Systems Impaired 4 or More Clinical Presentation at Evaluation Evolving Impairments Impairments Activity Tolerance,Functional Activities,Pain,ROM,Soft Tissue Mobility,Strength Goals Five Impairment Pt not able to sleep at prior level (usually sleeps on L side). Short Term Goal (STG) Pt will be educate in various positions for sidelie sleeping to alleviate L shoulder pain during the night. STG Duration 03/24/20 Cutter Down Goal (LTG) Pt will be able to sleep comfortably on the dominant L side. LTG Duration 05/19/20 Four Impairment Decreased L shoulder ROM (PROM degs in sup: flex 144, AB 90, ER 42, ER 62) Short Term Goal (STG) Improve L shoulder PROM to normal (R shoulder in sup in degs: flex 150, AB 180, ER 62, IR 80). STG Duration 03/31/20 Cutter Down Goal (LTG) Pt will be able to reach up to the 1st shelf from the bottom without pain. LTG Duration 05/19/20 Three Impairment Pain with functional use L UE cutting food to eat. Short Term Goal (STG) Improve L shoulder strength to no less than 3+/5 within available range STG Duration 04/21/20 Intermediate Goal (LTG) Pt will be able to cut food without pain using her L UE. LTG Duration 05/19/20 Two Impairment Decreased L shoulder AROM limiting dressing ability. Short Term Goal (STG) Improve L shoulder AROM ( Initial in sitting: flex 137, AB 70, IR to T9, ER to T1) STG Duration 04/21/20 Cutter Down Goal (LTG) Pt will be able to put on tops without L shoulder pain. LTG Duration 05/19/20 One Impairment Pt lacks an appropriate self care HEP. Intermediate Goal (LTG) Pt will be independent with a self care HEP. 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 She is guarded with movement and initially appeared to have signs of frozen shoulder, but with time was able to relax and demonstrated only ROM restriction with L shoulder IR flex, and AB. She does have tenderness to palpation of the Supraspinatus and Infraspinatus attachment at the head of the humerus. She demonstrates a dysfunctional scapulohumeral rhythm, indicating poor scapular stabilization. The pt will benefit from skilled physical therapy to improve her shoulder mobility, strength and functional ability. Further imaging may be necessary to rule out internal derangement of her shoulder if her pain complaints continue to be of pain deep in the joint. Physical Therapy Plan Frequency and Duration Frequency of Treatment 2x/Week Plan of Care Start Date 03/20/20 Plan of Care End Date 05/19/20 Therapeutic Interventions Therapeutic Interventions Home Exercise Program,Manual Therapy,Neuromuscular Re- education,Patient/Caregiver Education,Self-Care/Home Management,Soft Tissue Mobilization,Therapeutic Exercises Modalities Cold Pack/Ice Massage,Electric Stimulation,Hot Packs, Iontophoresis,Ultrasound Other Therapeutic Interventions Iontophoresis with 4mg/mL of Dexamethasone with Sodium Phosphate Next Visit Focus/Plan Next Note Type Treatment Note Next Visit Plan Progress R shoulder rehab for L shoulder impingement syndrome. Review and issue HEP for: L shoulder ER/IR ROM and stretching. STM TrP rx to L UT/posterior scalenes, Supraspinatus. Initiate HEP of shoulder flex & codmans ex. Assess joint mobility with mobilization as needed. Start Scapular ex's of shoulder rolls and scap stabilization. Stretch to subscapularis if needed. End with CP and possibly EStim if needed for pain management. Plan of Care Dates Plan of Care Start Date 03/20/20 Plan of Care End Date 05/19/20 Electronically Signed by: Priya Fuller, PT 03/21/20 8000 Please Sign and Return: I have reviewed this Plan of Care and certify that the skilled therapy services above are required to meet the patient?s needs. Physician Signature Date Printed Name and Credentials Clinical Instructor Signature Printed Name and Credentials
--- NOTE | 2020-03-24 16:49 | PT.OTN ---
Current Diagnoses Muscle weakness (generalized) (03/24/20) Strain of muscle(s) and tendon(s) of the rotator cuff of left shoulder, initial encounter (03/24/20) Physical Therapy Treatment Note PT-OP-A Visit Information Start: 03/18/20 18:29 Freq: Status: Active Protocol: Document 03/24/20 08:19 LRN (Rec: 03/24/20 09:04 LRN [id number]) Out-Patient Physical Therapy Visit Information Visit Information Visit Type Treatment Note Visit Start Time 08:19 Visit Stop Time 09:03 Total Visit Minutes 44 Visit Number 2 Evaluation Information Evaluation Date 03/20/20 Precautions Precautions Somewhat recent injury to the R shoulder. Scoliosis, Osteopenia, Thoracic compression fracture 12/2018. PT-OP-B Current Condition Start: 03/18/20 18:29 Freq: Status: Active Protocol: Document 03/20/20 08:14 LRN (Rec: 03/20/20 09:12 LRN [id number]) Current Condition History of Current Condition Onset Date 9 months ago Current Complaints L shoulder, decreased use History of Current Condition L handed. States she thinks she pulled a muscle in her arm . States she was helping someone put some wood in a trunk and felt something strain when she did it. She was already doing PT for her R shoulder that is now normal. She was at a wellness check when it was recommended that she have therapy for her L shoulder. Prior Treatments and Tests R shoulder therapy after tripping over her dog and falling. Future Testing and Treatments Planned None Treatment Goals Patient/Caregiver Goals Pt goals with therapy is to be able to -lift arm to get things out of 1st shelf from the bottom and above, -improve dressing ability, -able to cut food without pain , -to sleep on the dominant L side (usually sleeps on that side). Prior Functional Status Baseline Function- ADL's Independent Baseline Function- Mobility Independent Baseline Function- Other Slept on the L side at nighttime. Current Functional Impairments (Reported) Functional Limitations- ADL's Difficulty cutting food with dominant L hand. Difficulty putting coat/tops on. Functional Limitations- Other Not able to sleep on L side. Personal Factors Other Personal Factors That May Effect Son is at home assisting her, Therapy/Recovery Thoracic Compression fracture 12/2018, Osteopenia 03/2020. PT-OP-C Subjective Start: 03/18/20 18:29 Freq: Status: Active Protocol: Document 03/24/20 08:19 LRN (Rec: 03/24/20 09:04 LRN [id number]) OP-PT Subjective Patient Comments Patient Comments States she remembered only one of the exercises. PT-OP-E Functional Tests Start: 03/18/20 18:29 Freq: Status: Active Protocol: Document 03/20/20 08:14 LRN (Rec: 03/21/20 14:18 LRN [id number]) Functional Tests Apley's Scratch Test Action 1- Left Reach between spine & lateral border of scapula Action 1- Right Reach to Spine Action 2- Left T1 Action 2- Right T2 Action 3- Left T9 Action 3- Right T7 PT-OP-H Neuro Start: 03/18/20 18:29 Freq: Status: Active Protocol: Document 03/20/20 08:14 LRN (Rec: 03/21/20 14:18 LRN [id number]) Sensation Evaluation Gross Sensation Gross Sensation WNL Deep Tendon Reflex & Clonus Assessment Deep Tendon Reflex Bilateral Bicep Deep Tendon Reflex 2+ Normal PT-OP-J Posture/Palpation/Skin Start: 03/18/20 18:29 Freq: Status: Active Protocol: Document 03/20/20 08:14 LRN (Rec: 03/21/20 14:18 LRN [id number]) Posture Evaluation Position Standing L-Spine Posture Increased Lordosis Scapula Posture (L) Rotated Down Weight Distribution Weight Shifted Anterior Comments Posture Comments C-Curve of the thoracic spine with apex on the right. Protruding abdomen posture. L shoulder is low. PT-OP-K Range of Motion Start: 03/18/20 18:29 Freq: Status: Active Protocol: Document 03/20/20 08:14 LRN (Rec: 03/21/20 14:18 LRN [id number]) Cervical Spine Range of Motion Cervical Spine Active Degrees Testing Position Sitting Flexion 58 Extension 47 Rotation Left 62 Rotation Right 62 Lateral Flexion Left 20 Lateral Flexion Right 20 Shoulder Goniometric Range of Motion Shoulder Right Passive Shoulder ROM WFL Yes Testing Position Supine Flexion 168 Abduction 140 External Rotation at 90 degrees 68 Abduction Internal Rotation 62 Left Passive Shoulder ROM WFL No Testing Position Supine Flexion 144 Abduction 90 External Rotation at 90 degrees 42 Abduction Internal Rotation 62 Right Active Shoulder ROM WFL Yes Testing Position Sitting Flexion 145 Abduction 138 Internal Rotation Behind Back (text) T7 Left Active Shoulder ROM WFL No Testing Position Sitting Flexion 137 Abduction 70 Internal Rotation Behind Back (text) T9 PT-OP-M Strength Start: 03/18/20 18:29 Freq: Status: Active Protocol: Document 03/20/20 08:14 LRN (Rec: 03/21/20 14:18 LRN [id number]) Shoulder Strength Shoulder Manual Muscle Testing Right Flexion 4+ Good+ Abduction (C5) 5 Normal External Rotation 3+ Fair+ Internal Rotation 3+ Fair+ Left Flexion 3- Fair- Abduction (C5) 2+ Poor+ External Rotation 3+ Fair+ Internal Rotation 3+ Fair+ Elbow/Forearm Strength Elbow and Forearm Manual Muscle Testing Right Comments Generally 5/5. Left Comments Generally 5/5. PT-OP-Q Treatments Start: 03/18/20 18:29 Freq: Status: Active Protocol: Document 03/24/20 08:19 LRN (Rec: 03/24/20 09:04 LRN [id number]) Therapeutic Exercises Supine Exercises Shoulder flex Supine Exercise Name Shoulder flex stretch w/cane - started mid range Side bilateral Comments Had to determine proper ROM and shoulder positioning for ex Shoulder ER stretch Supine Exercise Name Shldr ER stretch w/cane Side left Comments Had to determine proper ROM and shoulder positioning for ex Shoulder ER/IR Supine Exercise Name Windshield wipe Side left Reps/Minutes 2' Comments Had to determine proper ROM and shoulder positioning for ex Self-Care/Home Management Treatment Education Patient Education Home Exercise Program Other Education Issued & reviewed HEP handouts : Stretch: shoulder ER & Flex ; Windshield wipe ex, ER strengthening with T-Band. Issued Level 1 T-Band. PT-OP-T Assessment and Plan Start: 03/18/20 18:29 Freq: Status: Active Protocol: Document 03/24/20 08:19 LRN (Rec: 03/24/20 09:04 LRN [id number]) Physical Therapy Assessment Goals Five Impairment Pt not able to sleep at prior level (usually sleeps on L side). Short Term Goal (STG) Pt will be educate in various positions for sidelie sleeping to alleviate L shoulder pain during the night. STG Duration 03/24/20 Aircraft Engineer Goal (LTG) Pt will be able to sleep comfortably on the dominant L side. LTG Duration 05/19/20 Four Impairment Decreased L shoulder ROM (PROM degs in sup: flex 144, AB 90, ER 42, ER 62) Short Term Goal (STG) Improve L shoulder PROM to normal (R shoulder in sup in degs: flex 150, AB 180, ER 62, IR 80). STG Duration 03/31/20 Nursing Home Goal (LTG) Pt will be able to reach up to the 1st shelf from the bottom without pain. LTG Duration 05/19/20 Three Impairment Pain with functional use L UE cutting food to eat. Short Term Goal (STG) Improve L shoulder strength to no less than 3+/5 within available range STG Duration 04/21/20 Aircraft Engineer Goal (LTG) Pt will be able to cut food without pain using her L UE. LTG Duration 05/19/20 Two Impairment Decreased L shoulder AROM limiting dressing ability. Short Term Goal (STG) Improve L shoulder AROM ( Initial in sitting: flex 137, AB 70, IR to T9, ER to T1) STG Duration 04/21/20 Aircraft Engineer Goal (LTG) Pt will be able to put on tops without L shoulder pain. LTG Duration 05/19/20 One Impairment Pt lacks an appropriate self care HEP. Nursing Home Goal (LTG) Pt will be independent with a self care HEP. LTG Duration 05/19/20 (03/24/20: Progressing) Progress Towards Goals Progress Comments Issued HEP of L shoulder ROM and initiated strengthening of ER/IR rotator cuff. Assessment Summary Assessment Pt had fair recall of active shoulder ER/IR ROM ex but poor recall of shoulder ER stretch and flex. Pt has fair tolerance to stretch and ex. Increase discomfort after exercise strengthening. Active TrP's in L Supraspinatus and L UT/ Posterior Scalenes. Physical Therapy Plan Frequency and Duration Frequency of Treatment 2x/Week Plan of Care Start Date 03/20/20 Plan of Care End Date 05/19/20 Next Visit Focus/Plan Next Note Type Treatment Note Next Visit Plan Progress R shoulder rehab for L shoulder impingement syndrome. Review HEP: L shoulder ER/IR ROM and stretching. STM TrP rx to L UT /posterior scalenes, Supraspinatus. Initiate HEP of codman ex. Assess joint mobility with mobilization as needed. Start Scapular ex's of shoulder rolls and scap stabilization. Stretch to subscapularis if needed. End with CP and possibly EStim if needed for pain management.
--- NOTE | 2020-03-27 11:01 | PT.OTN ---
Current Diagnoses Muscle weakness (generalized) (03/27/20) Strain of muscle(s) and tendon(s) of the rotator cuff of left shoulder, initial encounter (03/27/20) Physical Therapy Treatment Note PT-OP-A Visit Information Start: 03/18/20 18:29 Freq: Status: Active Protocol: Document 03/27/20 08:14 LRN (Rec: 03/27/20 09:05 LRN [id number]) Out-Patient Physical Therapy Visit Information Visit Information Visit Type Treatment Note Visit Start Time 08:14 Visit Stop Time 09:04 Total Visit Minutes 50 Visit Number 3 Evaluation Information Evaluation Date 03/20/20 Precautions Precautions Somewhat recent injury to the R shoulder. Scoliosis, Osteopenia, Thoracic compression fracture 12/2018. PT-OP-B Current Condition Start: 03/18/20 18:29 Freq: Status: Active Protocol: Document 03/20/20 08:14 LRN (Rec: 03/20/20 09:12 LRN [id number]) Current Condition History of Current Condition Onset Date 9 months ago Current Complaints L shoulder, decreased use History of Current Condition L handed. States she thinks she pulled a muscle in her arm . States she was helping someone put some wood in a trunk and felt something strain when she did it. She was already doing PT for her R shoulder that is now normal. She was at a wellness check when it was recommended that she have therapy for her L shoulder. Prior Treatments and Tests R shoulder therapy after tripping over her dog and falling. Future Testing and Treatments Planned None Treatment Goals Patient/Caregiver Goals Pt goals with therapy is to be able to -lift arm to get things out of 1st shelf from the bottom and above, -improve dressing ability, -able to cut food without pain , -to sleep on the dominant L side (usually sleeps on that side). Prior Functional Status Baseline Function- ADL's Independent Baseline Function- Mobility Independent Baseline Function- Other Slept on the L side at nighttime. Current Functional Impairments (Reported) Functional Limitations- ADL's Difficulty cutting food with dominant L hand. Difficulty putting coat/tops on. Functional Limitations- Other Not able to sleep on L side. Personal Factors Other Personal Factors That May Effect Son is at home assisting her, Therapy/Recovery Thoracic Compression fracture 12/2018, Osteopenia 03/2020. PT-OP-C Subjective Start: 03/18/20 18:29 Freq: Status: Active Protocol: Document 03/27/20 08:14 LRN (Rec: 03/27/20 09:05 LRN [id number]) OP-PT Subjective Patient Comments Patient Comments No change. PT-OP-E Functional Tests Start: 03/18/20 18:29 Freq: Status: Active Protocol: Document 03/20/20 08:14 LRN (Rec: 03/21/20 14:18 LRN [id number]) Functional Tests Apley's Scratch Test Action 1- Left Reach between spine & lateral border of scapula Action 1- Right Reach to Spine Action 2- Left T1 Action 2- Right T2 Action 3- Left T9 Action 3- Right T7 PT-OP-H Neuro Start: 03/18/20 18:29 Freq: Status: Active Protocol: Document 03/20/20 08:14 LRN (Rec: 03/21/20 14:18 LRN [id number]) Sensation Evaluation Gross Sensation Gross Sensation WNL Deep Tendon Reflex & Clonus Assessment Deep Tendon Reflex Bilateral Bicep Deep Tendon Reflex 2+ Normal PT-OP-J Posture/Palpation/Skin Start: 03/18/20 18:29 Freq: Status: Active Protocol: Document 03/20/20 08:14 LRN (Rec: 03/21/20 14:18 LRN [id number]) Posture Evaluation Position Standing L-Spine Posture Increased Lordosis Scapula Posture (L) Rotated Down Weight Distribution Weight Shifted Anterior Comments Posture Comments C-Curve of the thoracic spine with apex on the right. Protruding abdomen posture. L shoulder is low. PT-OP-K Range of Motion Start: 03/18/20 18:29 Freq: Status: Active Protocol: Document 03/20/20 08:14 LRN (Rec: 03/21/20 14:18 LRN [id number]) Cervical Spine Range of Motion Cervical Spine Active Degrees Testing Position Sitting Flexion 58 Extension 47 Rotation Left 62 Rotation Right 62 Lateral Flexion Left 20 Lateral Flexion Right 20 Shoulder Goniometric Range of Motion Shoulder Right Passive Shoulder ROM WFL Yes Testing Position Supine Flexion 168 Abduction 140 External Rotation at 90 degrees 68 Abduction Internal Rotation 62 Left Passive Shoulder ROM WFL No Testing Position Supine Flexion 144 Abduction 90 External Rotation at 90 degrees 42 Abduction Internal Rotation 62 Right Active Shoulder ROM WFL Yes Testing Position Sitting Flexion 145 Abduction 138 Internal Rotation Behind Back (text) T7 Left Active Shoulder ROM WFL No Testing Position Sitting Flexion 137 Abduction 70 Internal Rotation Behind Back (text) T9 PT-OP-M Strength Start: 03/18/20 18:29 Freq: Status: Active Protocol: Document 03/20/20 08:14 LRN (Rec: 03/21/20 14:18 LRN [id number]) Shoulder Strength Shoulder Manual Muscle Testing Right Flexion 4+ Good+ Abduction (C5) 5 Normal External Rotation 3+ Fair+ Internal Rotation 3+ Fair+ Left Flexion 3- Fair- Abduction (C5) 2+ Poor+ External Rotation 3+ Fair+ Internal Rotation 3+ Fair+ Elbow/Forearm Strength Elbow and Forearm Manual Muscle Testing Right Comments Generally 5/5. Left Comments Generally 5/5. PT-OP-Q Treatments Start: 03/18/20 18:29 Freq: Status: Active Protocol: Document 03/27/20 08:14 LRN (Rec: 03/27/20 09:05 LRN [id number]) Cardio Equipment Upper Body Ergometer (UBE) Duration (Minutes) 5 RPM 70 Seat Position 12 Height 2.5 Other Pain in shoulder reverse direction at lower rpm (65 or lower) Therapeutic Exercises Supine Exercises Chest press plus Supine Exercise Name Chest press + with cane and hands at ends. Side bilateral Comments Extra time for training of proper sequence. Shoulder flex Supine Exercise Name Shoulder flex stretch w/cane - started mid range Side bilateral Reps/Minutes 3' Comments Had to determine proper positioning with cane and max ROM for stretch Shoulder ER/IR Supine Exercise Name [facility] Side left Reps/Minutes 6' Comments Had to determine proper ROM and shoulder positioning for ex Sidelying Exercises Shoulder IR Sidelying Exercise Name Shoulder IR Comments Extra time for best positioning onto L side L shoulder ER Sidelying Exercise Name Shoulder ER Side left Comments Extra time for training of max motion tolerated. Sitting Exercises Shoulder IR Sitting Exercise Name Towel roll stretch behind f/b active stretch Side left Reps/Minutes 60 x 3 Standing Exercises Shoulder rolls Standing Exercise Name Shoulder rolls fwd/bkwd Reps/Minutes 2' Codman Standing Exercise Name Codmans Reps/Minutes 1' Self-Care/Home Management Treatment Education Patient Education Home Exercise Program Other Education Issued & reviewed HEP handouts : Stretch: shoulder Flex & AB with cane. PT-OP-T Assessment and Plan Start: 03/18/20 18:29 Freq: Status: Active Protocol: Document 03/27/20 08:14 LRN (Rec: 03/27/20 09:05 LRN [id number]) Physical Therapy Assessment Goals Five Impairment Pt not able to sleep at prior level (usually sleeps on L side). Short Term Goal (STG) Pt will be educate in various positions for sidelie sleeping to alleviate L shoulder pain during the night. STG Duration 03/24/20 Care Home Goal (LTG) Pt will be able to sleep comfortably on the dominant L side. LTG Duration 05/19/20 Four Impairment Decreased L shoulder ROM (PROM degs in sup: flex 144, AB 90, ER 42, ER 62) Short Term Goal (STG) Improve L shoulder PROM to normal (R shoulder in sup in degs: flex 150, AB 180, ER 62, IR 80). STG Duration 03/31/20 Care Home Goal (LTG) Pt will be able to reach up to the 1st shelf from the bottom without pain. LTG Duration 05/19/20 Three Impairment Pain with functional use L UE cutting food to eat. Short Term Goal (STG) Improve L shoulder strength to no less than 3+/5 within available range STG Duration 04/21/20 Yard Driver Goal (LTG) Pt will be able to cut food without pain using her L UE. LTG Duration 05/19/20 Two Impairment Decreased L shoulder AROM limiting dressing ability. Short Term Goal (STG) Improve L shoulder AROM ( Initial in sitting: flex 137, AB 70, IR to T9, ER to T1) STG Duration 04/21/20 Care Home Goal (LTG) Pt will be able to put on tops without L shoulder pain. LTG Duration 05/19/20 One Impairment Pt lacks an appropriate self care HEP. Yard Driver Goal (LTG) Pt will be independent with a self care HEP. LTG Duration 05/19/20 (03/27/20: Progressing) Progress Towards Goals Progress Comments Progressing HEP with added strengthening of assisted IR and scap protraction. Assessment Summary Assessment Pt again needed training on arm positioning for correctly strengthening ER/IR for AROM. Pt appears to have a high tolerance to pain. She is now able to perform a supine chest press using a cane without L shoulder pain. She appears to be improving with L shoulder mobility ER slightly better than the R. IR in supine appears normal, but sitting, her painfree mobility is with the L hand only on the posterolateral hip. Physical Therapy Plan Frequency and Duration Frequency of Treatment 2x/Week Plan of Care Start Date 03/20/20 Plan of Care End Date 05/19/20 Next Visit Focus/Plan Next Note Type Treatment Note Next Visit Plan Progress R shoulder rehab for L shoulder impingement syndrome, progressing strengthening of scap stabilizers and RC. STM TrP rx to L UT/posterior scalenes, Supraspinatus. Issue HEP of codman ex, chest press plus and ER/IR strengthening. Assess joint mobility with mobilization as needed. Stretch to subscapularis if needed. End with CP and possibly EStim if needed for pain management.
--- NOTE | 2020-03-27 12:23 | PT.OTN ---
Current Diagnoses Muscle weakness (generalized) (03/27/20) Strain of muscle(s) and tendon(s) of the rotator cuff of left shoulder, initial encounter (03/27/20) Physical Therapy Treatment Note PT-OP-A Visit Information Start: 03/18/20 18:29 Freq: Status: Active Protocol: Document 03/27/20 08:14 LRN (Rec: 03/27/20 09:05 LRN [id number]) Out-Patient Physical Therapy Visit Information Visit Information Visit Type Treatment Note Visit Start Time 08:14 Visit Stop Time 09:04 Total Visit Minutes 50 Visit Number 3 Evaluation Information Evaluation Date 03/20/20 Precautions Precautions Somewhat recent injury to the R shoulder. Scoliosis, Osteopenia, Thoracic compression fracture 12/2018. PT-OP-B Current Condition Start: 03/18/20 18:29 Freq: Status: Active Protocol: Document 03/20/20 08:14 LRN (Rec: 03/20/20 09:12 LRN [id number]) Current Condition History of Current Condition Onset Date 9 months ago Current Complaints L shoulder, decreased use History of Current Condition L handed. States she thinks she pulled a muscle in her arm . States she was helping someone put some wood in a trunk and felt something strain when she did it. She was already doing PT for her R shoulder that is now normal. She was at a wellness check when it was recommended that she have therapy for her L shoulder. Prior Treatments and Tests R shoulder therapy after tripping over her dog and falling. Future Testing and Treatments Planned None Treatment Goals Patient/Caregiver Goals Pt goals with therapy is to be able to -lift arm to get things out of 1st shelf from the bottom and above, -improve dressing ability, -able to cut food without pain , -to sleep on the dominant L side (usually sleeps on that side). Prior Functional Status Baseline Function- ADL's Independent Baseline Function- Mobility Independent Baseline Function- Other Slept on the L side at nighttime. Current Functional Impairments (Reported) Functional Limitations- ADL's Difficulty cutting food with dominant L hand. Difficulty putting coat/tops on. Functional Limitations- Other Not able to sleep on L side. Personal Factors Other Personal Factors That May Effect Son is at home assisting her, Therapy/Recovery Thoracic Compression fracture 12/2018, Osteopenia 03/2020. PT-OP-C Subjective Start: 03/18/20 18:29 Freq: Status: Active Protocol: Document 03/27/20 08:14 LRN (Rec: 03/27/20 09:05 LRN [id number]) OP-PT Subjective Patient Comments Patient Comments No change. Completed questionnaire of missing answer. Patient Questionnaires Quick Dash- Upper Extremity Quick Dash UE Score 20.45 Quick Dash UE Impairment 20 to 39% Impaired (Score 20- 39) PT-OP-E Functional Tests Start: 03/18/20 18:29 Freq: Status: Active Protocol: Document 03/20/20 08:14 LRN (Rec: 03/21/20 14:18 LRN [id number]) Functional Tests Apley's Scratch Test Action 1- Left Reach between spine & lateral border of scapula Action 1- Right Reach to Spine Action 2- Left T1 Action 2- Right T2 Action 3- Left T9 Action 3- Right T7 PT-OP-H Neuro Start: 03/18/20 18:29 Freq: Status: Active Protocol: Document 03/20/20 08:14 LRN (Rec: 03/21/20 14:18 LRN [id number]) Sensation Evaluation Gross Sensation Gross Sensation WNL Deep Tendon Reflex & Clonus Assessment Deep Tendon Reflex Bilateral Bicep Deep Tendon Reflex 2+ Normal PT-OP-J Posture/Palpation/Skin Start: 03/18/20 18:29 Freq: Status: Active Protocol: Document 03/20/20 08:14 LRN (Rec: 03/21/20 14:18 LRN [id number]) Posture Evaluation Position Standing L-Spine Posture Increased Lordosis Scapula Posture (L) Rotated Down Weight Distribution Weight Shifted Anterior Comments Posture Comments C-Curve of the thoracic spine with apex on the right. Protruding abdomen posture. L shoulder is low. PT-OP-K Range of Motion Start: 03/18/20 18:29 Freq: Status: Active Protocol: Document 03/20/20 08:14 LRN (Rec: 03/21/20 14:18 LRN [id number]) Cervical Spine Range of Motion Cervical Spine Active Degrees Testing Position Sitting Flexion 58 Extension 47 Rotation Left 62 Rotation Right 62 Lateral Flexion Left 20 Lateral Flexion Right 20 Shoulder Goniometric Range of Motion Shoulder Right Passive Shoulder ROM WFL Yes Testing Position Supine Flexion 168 Abduction 140 External Rotation at 90 degrees 68 Abduction Internal Rotation 62 Left Passive Shoulder ROM WFL No Testing Position Supine Flexion 144 Abduction 90 External Rotation at 90 degrees 42 Abduction Internal Rotation 62 Right Active Shoulder ROM WFL Yes Testing Position Sitting Flexion 145 Abduction 138 Internal Rotation Behind Back (text) T7 Left Active Shoulder ROM WFL No Testing Position Sitting Flexion 137 Abduction 70 Internal Rotation Behind Back (text) T9 PT-OP-M Strength Start: 03/18/20 18:29 Freq: Status: Active Protocol: Document 03/20/20 08:14 LRN (Rec: 03/21/20 14:18 LRN [id number]) Shoulder Strength Shoulder Manual Muscle Testing Right Flexion 4+ Good+ Abduction (C5) 5 Normal External Rotation 3+ Fair+ Internal Rotation 3+ Fair+ Left Flexion 3- Fair- Abduction (C5) 2+ Poor+ External Rotation 3+ Fair+ Internal Rotation 3+ Fair+ Elbow/Forearm Strength Elbow and Forearm Manual Muscle Testing Right Comments Generally 5/5. Left Comments Generally 5/5. PT-OP-Q Treatments Start: 03/18/20 18:29 Freq: Status: Active Protocol: Document 03/27/20 08:14 LRN (Rec: 03/27/20 09:05 LRN [id number]) Cardio Equipment Upper Body Ergometer (UBE) Duration (Minutes) 5 RPM 70 Seat Position 12 Height 2.5 Other Pain in shoulder reverse direction at lower rpm (65 or lower) Therapeutic Exercises Supine Exercises Chest press plus Supine Exercise Name Chest press + with cane and hands at ends. Side bilateral Comments Extra time for training of proper sequence. Shoulder flex Supine Exercise Name Shoulder flex stretch w/cane - started mid range Side bilateral Reps/Minutes 3' Comments Had to determine proper positioning with cane and max ROM for stretch Shoulder ER/IR Supine Exercise Name Windshield wipe Side left Reps/Minutes 6' Comments Had to determine proper ROM and shoulder positioning for ex Sidelying Exercises Shoulder IR Sidelying Exercise Name Shoulder IR Comments Extra time for best positioning onto L side L shoulder ER Sidelying Exercise Name Shoulder ER Side left Comments Extra time for training of max motion tolerated. Sitting Exercises Shoulder IR Sitting Exercise Name Towel roll stretch behind f/b active stretch Side left Reps/Minutes 60 x 3 Standing Exercises Shoulder rolls Standing Exercise Name Shoulder rolls fwd/bkwd Reps/Minutes 2' Codman Standing Exercise Name Codmans Reps/Minutes 1' Self-Care/Home Management Treatment Education Patient Education Home Exercise Program Other Education Issued & reviewed HEP handouts : Stretch: shoulder Flex & AB with cane. PT-OP-T Assessment and Plan Start: 03/18/20 18:29 Freq: Status: Active Protocol: Document 03/27/20 08:14 LRN (Rec: 03/27/20 09:05 LRN [id number]) Physical Therapy Assessment Goals Five Impairment Pt not able to sleep at prior level (usually sleeps on L side). Short Term Goal (STG) Pt will be educate in various positions for sidelie sleeping to alleviate L shoulder pain during the night. STG Duration 03/24/20 Usp Goal (LTG) Pt will be able to sleep comfortably on the dominant L side. LTG Duration 05/19/20 Four Impairment Decreased L shoulder ROM (PROM degs in sup: flex 144, AB 90, ER 42, ER 62) Short Term Goal (STG) Improve L shoulder PROM to normal (R shoulder in sup in degs: flex 150, AB 180, ER 62, IR 80). STG Duration 03/31/20 Usp Goal (LTG) Pt will be able to reach up to the 1st shelf from the bottom without pain. LTG Duration 05/19/20 Three Impairment Pain with functional use L UE cutting food to eat. Short Term Goal (STG) Improve L shoulder strength to no less than 3+/5 within available range STG Duration 04/21/20 Wood Crew Supervisor Goal (LTG) Pt will be able to cut food without pain using her L UE. LTG Duration 05/19/20 Two Impairment Decreased L shoulder AROM limiting dressing ability. Short Term Goal (STG) Improve L shoulder AROM ( Initial in sitting: flex 137, AB 70, IR to T9, ER to T1) STG Duration 04/21/20 Usp Goal (LTG) Pt will be able to put on tops without L shoulder pain. LTG Duration 05/19/20 One Impairment Pt lacks an appropriate self care HEP. Usp Goal (LTG) Pt will be independent with a self care HEP. LTG Duration 05/19/20 (03/27/20: Progressing) Progress Towards Goals Progress Comments Progressing HEP with added strengthening of assisted IR and scap protraction. Assessment Summary Assessment Pt again needed training on arm positioning for correctly strengthening ER/IR for AROM. Pt appears to have a high tolerance to pain. She is now able to perform a supine chest press using a cane without L shoulder pain. She appears to be improving with L shoulder mobility ER slightly better than the R. IR in supine appears normal, but sitting, her painfree mobility is with the L hand only on the posterolateral hip. Physical Therapy Plan Frequency and Duration Frequency of Treatment 2x/Week Plan of Care Start Date 03/20/20 Plan of Care End Date 05/19/20 Next Visit Focus/Plan Next Note Type Treatment Note Next Visit Plan Progress R shoulder rehab for L shoulder impingement syndrome, progressing strengthening of scap stabilizers and RC. STM TrP rx to L UT/posterior scalenes, Supraspinatus. Issue HEP of codman ex, chest press plus and ER/IR strengthening. Assess joint mobility with mobilization as needed. Stretch to subscapularis if needed. End with CP and possibly EStim if needed for pain management.
--- NOTE | 2020-04-01 12:33 | PT-OP ANOTE ---
Per phone pt states she has a sinus problem, maybe infection, so she pressed cancel for the appt per the telephone system. Pt notified of her next visit and recommended to call to cancel if she doesn't feel well enough to come in.
--- NOTE | 2020-04-11 15:22 | PT.OTN ---
Current Diagnoses Muscle weakness (generalized) (04/11/20) Strain of muscle(s) and tendon(s) of the rotator cuff of left shoulder, initial encounter (04/11/20) Physical Therapy Treatment Note PT-OP-A Visit Information Start: 03/18/20 18:29 Freq: Status: Active Protocol: Document 04/11/20 14:21 LRN (Rec: 04/11/20 15:02 LRN [id number]) Out-Patient Physical Therapy Visit Information Visit Information Visit Type Treatment Note Visit Start Time 14:21 Visit Stop Time 15:10 Total Visit Minutes 49 Visit Number 4 Evaluation Information Evaluation Date 03/20/20 Precautions Precautions Somewhat recent injury to the R shoulder. Scoliosis, Osteopenia, Thoracic compression fracture 12/2018. PT-OP-B Current Condition Start: 03/18/20 18:29 Freq: Status: Active Protocol: Document 03/20/20 08:14 LRN (Rec: 03/20/20 09:12 LRN [id number]) Current Condition History of Current Condition Onset Date 9 months ago Current Complaints L shoulder, decreased use History of Current Condition L handed. States she thinks she pulled a muscle in her arm . States she was helping someone put some wood in a trunk and felt something strain when she did it. She was already doing PT for her R shoulder that is now normal. She was at a wellness check when it was recommended that she have therapy for her L shoulder. Prior Treatments and Tests R shoulder therapy after tripping over her dog and falling. Future Testing and Treatments Planned None Treatment Goals Patient/Caregiver Goals Pt goals with therapy is to be able to -lift arm to get things out of 1st shelf from the bottom and above, -improve dressing ability, -able to cut food without pain , -to sleep on the dominant L side (usually sleeps on that side). Prior Functional Status Baseline Function- ADL's Independent Baseline Function- Mobility Independent Baseline Function- Other Slept on the L side at nighttime. Current Functional Impairments (Reported) Functional Limitations- ADL's Difficulty cutting food with dominant L hand. Difficulty putting coat/tops on. Functional Limitations- Other Not able to sleep on L side. Personal Factors Other Personal Factors That May Effect Son is at home assisting her, Therapy/Recovery Thoracic Compression fracture 12/2018, Osteopenia 03/2020. PT-OP-C Subjective Start: 03/18/20 18:29 Freq: Status: Active Protocol: Document 04/11/20 14:21 LRN (Rec: 04/11/20 15:02 LRN [id number]) OP-PT Subjective Patient Comments Patient Comments States with supine ER she has end-range pain, otherwise no change. PT-OP-E Functional Tests Start: 03/18/20 18:29 Freq: Status: Active Protocol: Document 03/20/20 08:14 LRN (Rec: 03/21/20 14:18 LRN [id number]) Functional Tests Apley's Scratch Test Action 1- Left Reach between spine & lateral border of scapula Action 1- Right Reach to Spine Action 2- Left T1 Action 2- Right T2 Action 3- Left T9 Action 3- Right T7 PT-OP-H Neuro Start: 03/18/20 18:29 Freq: Status: Active Protocol: Document 03/20/20 08:14 LRN (Rec: 03/21/20 14:18 LRN [id number]) Sensation Evaluation Gross Sensation Gross Sensation WNL Deep Tendon Reflex & Clonus Assessment Deep Tendon Reflex Bilateral Bicep Deep Tendon Reflex 2+ Normal PT-OP-J Posture/Palpation/Skin Start: 03/18/20 18:29 Freq: Status: Active Protocol: Document 03/20/20 08:14 LRN (Rec: 03/21/20 14:18 LRN [id number]) Posture Evaluation Position Standing L-Spine Posture Increased Lordosis Scapula Posture (L) Rotated Down Weight Distribution Weight Shifted Anterior Comments Posture Comments C-Curve of the thoracic spine with apex on the right. Protruding abdomen posture. L shoulder is low. PT-OP-K Range of Motion Start: 03/18/20 18:29 Freq: Status: Active Protocol: Document 03/20/20 08:14 LRN (Rec: 03/21/20 14:18 LRN [id number]) Cervical Spine Range of Motion Cervical Spine Active Degrees Testing Position Sitting Flexion 58 Extension 47 Rotation Left 62 Rotation Right 62 Lateral Flexion Left 20 Lateral Flexion Right 20 Shoulder Goniometric Range of Motion Shoulder Right Passive Shoulder ROM WFL Yes Testing Position Supine Flexion 168 Abduction 140 External Rotation at 90 degrees 68 Abduction Internal Rotation 62 Left Passive Shoulder ROM WFL No Testing Position Supine Flexion 144 Abduction 90 External Rotation at 90 degrees 42 Abduction Internal Rotation 62 Right Active Shoulder ROM WFL Yes Testing Position Sitting Flexion 145 Abduction 138 Internal Rotation Behind Back (text) T7 Left Active Shoulder ROM WFL No Testing Position Sitting Flexion 137 Abduction 70 Internal Rotation Behind Back (text) T9 PT-OP-M Strength Start: 03/18/20 18:29 Freq: Status: Active Protocol: Document 03/20/20 08:14 LRN (Rec: 03/21/20 14:18 LRN [id number]) Shoulder Strength Shoulder Manual Muscle Testing Right Flexion 4+ Good+ Abduction (C5) 5 Normal External Rotation 3+ Fair+ Internal Rotation 3+ Fair+ Left Flexion 3- Fair- Abduction (C5) 2+ Poor+ External Rotation 3+ Fair+ Internal Rotation 3+ Fair+ Elbow/Forearm Strength Elbow and Forearm Manual Muscle Testing Right Comments Generally 5/5. Left Comments Generally 5/5. PT-OP-Q Treatments Start: 03/18/20 18:29 Freq: Status: Active Protocol: Document 04/11/20 14:21 LRN (Rec: 04/11/20 15:02 LRN [id number]) Therapeutic Exercises Supine Exercises Chest press plus Supine Exercise Name Chest press + with cane and hands at ends. Side bilateral Reps/Minutes 10x Comments Extra time for training of proper sequence. Shoulder flex Supine Exercise Name Shoulder flex stretch w/cane - starting at sides Side bilateral Reps/Minutes 10' Comments Extra time to deter max ROM stretch and trying various MWM to dec pain Shoulder ER/IR Supine Exercise Name Windshield wipe Side left Reps/Minutes 4' Sidelying Exercises Shoulder IR Sidelying Exercise Name Shoulder IR Side left Reps/Minutes 30x Comments Careful and slow movement L shoulder ER Sidelying Exercise Name Shoulder ER Side left Reps/Minutes 30x with 2 stop rests Comments Pt needed cuing to keep from moving into pain. Sitting Exercises Shoulder flex/table slide Sitting Exercise Name Shoulder flex/table slide Side left Reps/Minutes 10x Comments Cuing needed to keep painfree range, adjusted position x 2 Self-Care/Home Management Treatment Education Patient Education Home Exercise Program,Pain Management Other Education Discussed use of cryotherapy for pain management. Activities Self-Care/Home Management Activities Created, issued & reviewed HEP : Codman's, Shoulder flex w/ cane, active shoulder ER/IR sidelie and sitting shoulder flex. PT-OP-T Assessment and Plan Start: 03/18/20 18:29 Freq: Status: Active Protocol: Document 04/11/20 14:21 LRN (Rec: 04/11/20 15:02 LRN [id number]) Physical Therapy Assessment Goals Five Impairment Pt not able to sleep at prior level (usually sleeps on L side). Short Term Goal (STG) Pt will be educate in various positions for sidelie sleeping to alleviate L shoulder pain during the night. STG Duration 03/24/20 Ladderman Goal (LTG) Pt will be able to sleep comfortably on the dominant L side. LTG Duration 05/19/20 Four Impairment Decreased L shoulder ROM (PROM degs in sup: flex 144, AB 90, ER 42, ER 62) Short Term Goal (STG) Improve L shoulder PROM to normal (R shoulder in sup in degs: flex 150, AB 180, ER 62, IR 80). STG Duration 03/31/20 Ladderman Goal (LTG) Pt will be able to reach up to the 1st shelf from the bottom without pain. LTG Duration 05/19/20 Three Impairment Pain with functional use L UE cutting food to eat. Short Term Goal (STG) Improve L shoulder strength to no less than 3+/5 within available range STG Duration 04/21/20 Nursing Home Goal (LTG) Pt will be able to cut food without pain using her L UE. LTG Duration 05/19/20 Two Impairment Decreased L shoulder AROM limiting dressing ability. Short Term Goal (STG) Improve L shoulder AROM ( Initial in sitting: flex 137, AB 70, IR to T9, ER to T1) STG Duration 04/21/20 Ladderman Goal (LTG) Pt will be able to put on tops without L shoulder pain. LTG Duration 05/19/20 One Impairment Pt lacks an appropriate self care HEP. Ladderman Goal (LTG) Pt will be independent with a self care HEP. LTG Duration 05/19/20 (04/11/20: Progressing) Progress Towards Goals Progress Towards Goals Slow Progress due to Activity Tolerance Assessment Summary Assessment Progression for L shoulder ROM & strength is slow due to end -range pain at superior L shoulder with all movements, phys cuing at scapula doesn't appear to make much difference , although difficult to assess through clothing. She appears to tolerate shoulder flexion better in sitting with table arm slide. Physical Therapy Plan Frequency and Duration Frequency of Treatment 2x/Week Plan of Care Start Date 03/20/20 Plan of Care End Date 05/19/20 Next Visit Focus/Plan Next Note Type Treatment Note Next Visit Plan 1x next week due to scheduling difficulty. Progress R shoulder rehab for L shoulder impingement syndrome, progressing strengthening of scap stabilizers > RC. STM TrP rx to L UT/posterior scalenes, Supraspinatus. Assess L GHJ & ACJ mobility with mobilization as needed. Stretch to subscapularis if needed. End with CP and possibly EStim if needed for pain management.
--- NOTE | 2020-04-18 13:33 | PT.OTN ---
Current Diagnoses Muscle weakness (generalized) (04/18/20) Strain of muscle(s) and tendon(s) of the rotator cuff of left shoulder, initial encounter (04/18/20) Physical Therapy Treatment Note PT-OP-A Visit Information Start: 03/18/20 18:29 Freq: Status: Active Protocol: Document 04/18/20 12:45 LRN (Rec: 04/18/20 13:32 LRN [id number]) Out-Patient Physical Therapy Visit Information Visit Information Visit Type Treatment Note Visit Start Time 12:45 Visit Stop Time 13:35 Total Visit Minutes 50 Visit Number 5 Evaluation Information Evaluation Date 03/20/20 Precautions Precautions Somewhat recent injury to the R shoulder. Scoliosis, Osteopenia, Thoracic compression fracture 12/2018. PT-OP-B Current Condition Start: 03/18/20 18:29 Freq: Status: Active Protocol: Document 03/20/20 08:14 LRN (Rec: 03/20/20 09:12 LRN [id number]) Current Condition History of Current Condition Onset Date 9 months ago Current Complaints L shoulder, decreased use History of Current Condition L handed. States she thinks she pulled a muscle in her arm . States she was helping someone put some wood in a trunk and felt something strain when she did it. She was already doing PT for her R shoulder that is now normal. She was at a wellness check when it was recommended that she have therapy for her L shoulder. Prior Treatments and Tests R shoulder therapy after tripping over her dog and falling. Future Testing and Treatments Planned None Treatment Goals Patient/Caregiver Goals Pt goals with therapy is to be able to -lift arm to get things out of 1st shelf from the bottom and above, -improve dressing ability, -able to cut food without pain , -to sleep on the dominant L side (usually sleeps on that side). Prior Functional Status Baseline Function- ADL's Independent Baseline Function- Mobility Independent Baseline Function- Other Slept on the L side at nighttime. Current Functional Impairments (Reported) Functional Limitations- ADL's Difficulty cutting food with dominant L hand. Difficulty putting coat/tops on. Functional Limitations- Other Not able to sleep on L side. Personal Factors Other Personal Factors That May Effect Son is at home assisting her, Therapy/Recovery Thoracic Compression fracture 12/2018, Osteopenia 03/2020. PT-OP-C Subjective Start: 03/18/20 18:29 Freq: Status: Active Protocol: Document 04/18/20 12:45 LRN (Rec: 04/18/20 13:32 LRN [id number]) OP-PT Subjective Patient Comments Patient Comments States pain onset variable with pain daily. Scheduled to see MD in Jul, not sure if it is for the L shoulder or something else. No imaging done on L shoulder. Pain with reaching up into cupboards, haven't noticed pain with cutting of food with L (dominant) hand. PT-OP-E Functional Tests Start: 03/18/20 18:29 Freq: Status: Active Protocol: Document 03/20/20 08:14 LRN (Rec: 03/21/20 14:18 LRN [id number]) Functional Tests Apley's Scratch Test Action 1- Left Reach between spine & lateral border of scapula Action 1- Right Reach to Spine Action 2- Left T1 Action 2- Right T2 Action 3- Left T9 Action 3- Right T7 PT-OP-H Neuro Start: 03/18/20 18:29 Freq: Status: Active Protocol: Document 03/20/20 08:14 LRN (Rec: 03/21/20 14:18 LRN [id number]) Sensation Evaluation Gross Sensation Gross Sensation WNL Deep Tendon Reflex & Clonus Assessment Deep Tendon Reflex Bilateral Bicep Deep Tendon Reflex 2+ Normal PT-OP-J Posture/Palpation/Skin Start: 03/18/20 18:29 Freq: Status: Active Protocol: Document 03/20/20 08:14 LRN (Rec: 03/21/20 14:18 LRN [id number]) Posture Evaluation Position Standing L-Spine Posture Increased Lordosis Scapula Posture (L) Rotated Down Weight Distribution Weight Shifted Anterior Comments Posture Comments C-Curve of the thoracic spine with apex on the right. Protruding abdomen posture. L shoulder is low. PT-OP-K Range of Motion Start: 03/18/20 18:29 Freq: Status: Active Protocol: Document 03/20/20 08:14 LRN (Rec: 03/21/20 14:18 LRN [id number]) Cervical Spine Range of Motion Cervical Spine Active Degrees Testing Position Sitting Flexion 58 Extension 47 Rotation Left 62 Rotation Right 62 Lateral Flexion Left 20 Lateral Flexion Right 20 Shoulder Goniometric Range of Motion Shoulder Right Passive Shoulder ROM WFL Yes Testing Position Supine Flexion 168 Abduction 140 External Rotation at 90 degrees 68 Abduction Internal Rotation 62 Left Passive Shoulder ROM WFL No Testing Position Supine Flexion 144 Abduction 90 External Rotation at 90 degrees 42 Abduction Internal Rotation 62 Right Active Shoulder ROM WFL Yes Testing Position Sitting Flexion 145 Abduction 138 Internal Rotation Behind Back (text) T7 Left Active Shoulder ROM WFL No Testing Position Sitting Flexion 137 Abduction 70 Internal Rotation Behind Back (text) T9 PT-OP-M Strength Start: 03/18/20 18:29 Freq: Status: Active Protocol: Document 03/20/20 08:14 LRN (Rec: 03/21/20 14:18 LRN [id number]) Shoulder Strength Shoulder Manual Muscle Testing Right Flexion 4+ Good+ Abduction (C5) 5 Normal External Rotation 3+ Fair+ Internal Rotation 3+ Fair+ Left Flexion 3- Fair- Abduction (C5) 2+ Poor+ External Rotation 3+ Fair+ Internal Rotation 3+ Fair+ Elbow/Forearm Strength Elbow and Forearm Manual Muscle Testing Right Comments Generally 5/5. Left Comments Generally 5/5. PT-OP-Q Treatments Start: 03/18/20 18:29 Freq: Status: Active Protocol: Document 04/18/20 12:45 LRN (Rec: 04/18/20 13:32 LRN [id number]) Cardio Equipment Recumbent Elliptical ([employer]) Duration (Minutes) 6 Resistance 1 Therapeutic Exercises Supine Exercises Lat Pull down Supine Exercise Name Lat Pull down Resistance Lev 1 T-Band Reps/Minutes 10x Comments Had to determine ROM/movement tolerance Chest press plus Supine Exercise Name Chest press + with cane Side bilateral Reps/Minutes 30 x Comments Painfree, aching/tired with exercise. Shoulder flex Supine Exercise Name Shoulder flex stretch w/cane - starting at sides Side bilateral Reps/Minutes 3' Comments Extra time needed for review. Sidelying Exercises Shoulder IR Sidelying Exercise Name Shoulder IR Side left Resistance 1# Reps/Minutes 30x Comments Careful and slow movement L shoulder ER Sidelying Exercise Name Shoulder ER Side left Resistance 1# Reps/Minutes 30x with 2 stop rests Comments Painfree range Standing Exercises Shoulder rotation Standing Exercise Name Hands on T-Ball rolling ball side to side Side bilateral Equipment Used Gr T-Ball Reps/Minutes 3' Shoulder flex Standing Exercise Name Forward rolling T-Ball with hands on top Side bilateral Equipment Used Gr T-Ball Reps/Minutes 3' Shoulder rolls Standing Exercise Name Shoulder rolls fwd/bkwd Reps/Minutes 2' PT-OP-R Modalities Start: 03/18/20 18:29 Freq: Status: Active Protocol: Document 04/18/20 12:45 LRN (Rec: 04/18/20 13:32 LRN [id number]) Hot Pack/Cold Pack Treatment Cold Pack Location L shoulder Patient Position Supine Treatment Duration (minutes) 10 Patient Tolerance Good PT-OP-T Assessment and Plan Start: 03/18/20 18:29 Freq: Status: Active Protocol: Document 04/18/20 12:45 LRN (Rec: 04/18/20 13:32 LRN [id number]) Physical Therapy Assessment Goals Five Impairment Pt not able to sleep at prior level (usually sleeps on L side). Short Term Goal (STG) Pt will be educate in various positions for sidelie sleeping to alleviate L shoulder pain during the night. STG Duration 03/24/20 Retirement Goal (LTG) Pt will be able to sleep comfortably on the dominant L side. LTG Duration 05/19/20 Four Impairment Decreased L shoulder ROM (PROM degs in sup: flex 144, AB 90, ER 42, ER 62) Short Term Goal (STG) Improve L shoulder PROM to normal (R shoulder in sup in degs: flex 150, AB 180, ER 62, IR 80). STG Duration 03/31/20 Counselor Dormitory Goal (LTG) Pt will be able to reach up to the 1st shelf from the bottom without pain. LTG Duration 05/19/20 Three Impairment Pain with functional use L UE cutting food to eat. Short Term Goal (STG) Improve L shoulder strength to no less than 3+/5 within available range STG Duration 04/21/20 Retirement Goal (LTG) Pt will be able to cut food without pain using her L UE. LTG Duration 05/19/20 (04/18/20: MET GOAL) Two Impairment Decreased L shoulder AROM limiting dressing ability. Short Term Goal (STG) Improve L shoulder AROM ( Initial in sitting: flex 137, AB 70, IR to T9, ER to T1) STG Duration 04/21/20 Retirement Goal (LTG) Pt will be able to put on tops without L shoulder pain. LTG Duration 05/19/20 One Impairment Pt lacks an appropriate self care HEP. Counselor Dormitory Goal (LTG) Pt will be independent with a self care HEP. LTG Duration 05/19/20 (04/11/20: Progressing) Progress Towards Goals Progress Comments Increased exercise tolerance. of 30 reps vs 10 reps without pain. LTG #3 MET. Pt now able to cut food without pain. Assessment Summary Assessment Pt moves slowly and carefully through exercises. Strength is improved. L shoulder AB mobility quite limited. Physical Therapy Plan Frequency and Duration Frequency of Treatment 2x/Week Plan of Care Start Date 03/20/20 Plan of Care End Date 05/19/20 Next Visit Focus/Plan Next Note Type Treatment Note Next Visit Plan Progress L shoulder rehab for L shoulder impingement syndrome, progressing strengthening of scap stabilizers > RC. Recheck shoulder AB mobility and increase. with manual treatment. STM TrP rx to L UT /posterior scalenes, Supraspinatus. Assess L GHJ & ACJ mobility with mobilization as needed. Stretch to subscapularis if needed. End with CP and possibly EStim if needed for pain management.
--- NOTE | 2020-04-22 13:45 | PT.OTN ---
Current Diagnoses Muscle weakness (generalized) (04/22/20) Strain of muscle(s) and tendon(s) of the rotator cuff of left shoulder, initial encounter (04/22/20) Physical Therapy Treatment Note PT-OP-A Visit Information Start: 03/18/20 18:29 Freq: Status: Active Protocol: Document 04/22/20 12:46 LRN (Rec: 04/22/20 13:32 LRN [id number]) Out-Patient Physical Therapy Visit Information Visit Information Visit Type Treatment Note Visit Start Time 12:46 Visit Stop Time 13:31 Total Visit Minutes 45 Visit Number 6 Evaluation Information Evaluation Date 03/20/20 Precautions Precautions Somewhat recent injury to the R shoulder. Scoliosis, Osteopenia, Thoracic compression fracture 12/2018. PT-OP-B Current Condition Start: 03/18/20 18:29 Freq: Status: Active Protocol: Document 03/20/20 08:14 LRN (Rec: 03/20/20 09:12 LRN [id number]) Current Condition History of Current Condition Onset Date 9 months ago Current Complaints L shoulder, decreased use History of Current Condition L handed. States she thinks she pulled a muscle in her arm . States she was helping someone put some wood in a trunk and felt something strain when she did it. She was already doing PT for her R shoulder that is now normal. She was at a wellness check when it was recommended that she have therapy for her L shoulder. Prior Treatments and Tests R shoulder therapy after tripping over her dog and falling. Future Testing and Treatments Planned None Treatment Goals Patient/Caregiver Goals Pt goals with therapy is to be able to -lift arm to get things out of 1st shelf from the bottom and above, -improve dressing ability, -able to cut food without pain , -to sleep on the dominant L side (usually sleeps on that side). Prior Functional Status Baseline Function- ADL's Independent Baseline Function- Mobility Independent Baseline Function- Other Slept on the L side at nighttime. Current Functional Impairments (Reported) Functional Limitations- ADL's Difficulty cutting food with dominant L hand. Difficulty putting coat/tops on. Functional Limitations- Other Not able to sleep on L side. Personal Factors Other Personal Factors That May Effect Son is at home assisting her, Therapy/Recovery Thoracic Compression fracture 12/2018, Osteopenia 03/2020. PT-OP-C Subjective Start: 03/18/20 18:29 Freq: Status: Active Protocol: Document 04/22/20 12:46 LRN (Rec: 04/22/20 13:32 LRN [id number]) OP-PT Subjective Patient Comments Patient Comments No change. L shoulder hurts when pushing car door open to exit, and when putting deodorant on the L underarm. PT-OP-E Functional Tests Start: 03/18/20 18:29 Freq: Status: Active Protocol: Document 03/20/20 08:14 LRN (Rec: 03/21/20 14:18 LRN [id number]) Functional Tests Apley's Scratch Test Action 1- Left Reach between spine & lateral border of scapula Action 1- Right Reach to Spine Action 2- Left T1 Action 2- Right T2 Action 3- Left T9 Action 3- Right T7 PT-OP-H Neuro Start: 03/18/20 18:29 Freq: Status: Active Protocol: Document 03/20/20 08:14 LRN (Rec: 03/21/20 14:18 LRN [id number]) Sensation Evaluation Gross Sensation Gross Sensation WNL Deep Tendon Reflex & Clonus Assessment Deep Tendon Reflex Bilateral Bicep Deep Tendon Reflex 2+ Normal PT-OP-J Posture/Palpation/Skin Start: 03/18/20 18:29 Freq: Status: Active Protocol: Document 03/20/20 08:14 LRN (Rec: 03/21/20 14:18 LRN [id number]) Posture Evaluation Position Standing L-Spine Posture Increased Lordosis Scapula Posture (L) Rotated Down Weight Distribution Weight Shifted Anterior Comments Posture Comments C-Curve of the thoracic spine with apex on the right. Protruding abdomen posture. L shoulder is low. PT-OP-K Range of Motion Start: 03/18/20 18:29 Freq: Status: Active Protocol: Document 04/22/20 12:46 LRN (Rec: 04/22/20 13:32 LRN [id number]) Shoulder Goniometric Range of Motion Shoulder Left Passive Testing Position Supine Flexion 135 PT-OP-M Strength Start: 03/18/20 18:29 Freq: Status: Active Protocol: Document 03/20/20 08:14 LRN (Rec: 03/21/20 14:18 LRN [id number]) Shoulder Strength Shoulder Manual Muscle Testing Right Flexion 4+ Good+ Abduction (C5) 5 Normal External Rotation 3+ Fair+ Internal Rotation 3+ Fair+ Left Flexion 3- Fair- Abduction (C5) 2+ Poor+ External Rotation 3+ Fair+ Internal Rotation 3+ Fair+ Elbow/Forearm Strength Elbow and Forearm Manual Muscle Testing Right Comments Generally 5/5. Left Comments Generally 5/5. PT-OP-Q Treatments Start: 03/18/20 18:29 Freq: Status: Active Protocol: Document 04/22/20 12:46 LRN (Rec: 04/22/20 13:32 LRN [id number]) Cardio Equipment Recumbent Elliptical ([employer]) Duration (Minutes) 7 Resistance 1 Seat Position 10 Therapeutic Exercises Supine Exercises L Pec Stretch Supine Exercise Name L Pec Stretch w/hand on head Side left Reps/Minutes 3' Lat Pull down Supine Exercise Name Lat Pull down Resistance Lev 1 T-Band Reps/Minutes 15 x 2 Comments Had to determine ROM/movement tolerance & pt moves slowly Chest press plus Supine Exercise Name Chest press + with cane Side bilateral Reps/Minutes 15 x 2 Comments Pt moving slowly and carefully Shoulder flex Supine Exercise Name Shoulder flex stretch w/cane - starting at sides Side bilateral Reps/Minutes 3' Comments Pt moves slowly Sidelying Exercises Shoulder AB Sidelying Exercise Name Shoulder AB Side left Reps/Minutes 10x 3 Shoulder IR Sidelying Exercise Name Shoulder IR Side left Resistance 2# Reps/Minutes 30 x Comments Careful and slow movement L shoulder ER Sidelying Exercise Name Shoulder ER Side left Resistance 2#, 1# Reps/Minutes 10x, 10x2 respectively Sitting Exercises Guerrero Sitting Exercise Name L shoulder flex stretch Reps/Minutes 8' Comments 130 deg's flex Manual Therapy Treatment Soft Tissue Mobilization L Pec Minor & Major Body Location L Pec Minor & Major Mobilization Type Strumming,Trigger Point Release Intensity/Depth Moderate Body Position Supine PT-OP-R Modalities Start: 03/18/20 18:29 Freq: Status: Active Protocol: Document 04/18/20 12:45 LRN (Rec: 04/18/20 13:32 LRN [id number]) Hot Pack/Cold Pack Treatment Cold Pack Location L shoulder Patient Position Supine Treatment Duration (minutes) 10 Patient Tolerance Good PT-OP-T Assessment and Plan Start: 03/18/20 18:29 Freq: Status: Active Protocol: Document 04/22/20 12:46 LRN (Rec: 04/22/20 13:32 LRN [id number]) Physical Therapy Assessment Goals Five Impairment Pt not able to sleep at prior level (usually sleeps on L side). Short Term Goal (STG) Pt will be educate in various positions for sidelie sleeping to alleviate L shoulder pain during the night. STG Duration 03/24/20 Assisted Goal (LTG) Pt will be able to sleep comfortably on the dominant L side. LTG Duration 05/19/20 Four Impairment Decreased L shoulder ROM (PROM degs in sup: flex 144, AB 90, ER 42, ER 62) Short Term Goal (STG) Improve L shoulder PROM to normal (R shoulder in sup in degs: flex 150, AB 180, ER 62, IR 80). STG Duration 03/31/20 Assisted Goal (LTG) Pt will be able to reach up to the 1st shelf from the bottom without pain. LTG Duration 05/19/20 Three Impairment Pain with functional use L UE cutting food to eat. Short Term Goal (STG) Improve L shoulder strength to no less than 3+/5 within available range STG Duration 04/21/20 Director Of Marketing Communications Goal (LTG) Pt will be able to cut food without pain using her L UE. LTG Duration 05/19/20 (04/18/20: MET GOAL) Two Impairment Decreased L shoulder AROM limiting dressing ability. Short Term Goal (STG) Improve L shoulder AROM ( Initial in sitting: flex 137, AB 70, IR to T9, ER to T1) STG Duration 04/21/20 Director Of Marketing Communications Goal (LTG) Pt will be able to put on tops without L shoulder pain. LTG Duration 05/19/20 One Impairment Pt lacks an appropriate self care HEP. Director Of Marketing Communications Goal (LTG) Pt will be independent with a self care HEP. LTG Duration 05/19/20 (04/11/20: Progressing) Progress Towards Goals Progress Towards Goals Slow Progress - Other Progress Comments Pt progress is slow due to inconsistent attendance from unable to schedule and pt illness. Assessment Summary Assessment Pt has active TrP's at L Pec Minor & Major that persist. Pt moves slowly and carefully, but was able to perform chest press without pain and able to move more quickly. L shoulder mobility shows no significant improvement and is a little more stiff with flex ; probaby due to inconsistent attendance due to scheduling restrictions and pt illness. Physical Therapy Plan Frequency and Duration Frequency of Treatment 2x/Week Plan of Care Start Date 03/20/20 Plan of Care End Date 05/19/20 Next Visit Focus/Plan Next Note Type Treatment Note Next Visit Plan Progress L shoulder rehab for L shoulder impingement syndrome with focus for a couple weeks on improving ROM. Progress strengthening of scap stabilizers > RC. Recheck shoulder AB mobility and increase with manual treatment. STM TrP rx to L UT /posterior scalenes, Supraspinatus. Assess L GHJ & ACJ mobility with mobilization as needed. Stretch to subscapularis if needed. End with CP and possibly EStim if needed for pain management.
--- NOTE | 2020-04-24 16:44 | PT.OTN ---
Current Diagnoses Muscle weakness (generalized) (04/24/20) Strain of muscle(s) and tendon(s) of the rotator cuff of left shoulder, initial encounter (04/24/20) Physical Therapy Treatment Note PT-OP-A Visit Information Start: 03/18/20 18:29 Freq: Status: Active Protocol: Document 04/24/20 14:29 LRN (Rec: 04/24/20 15:03 LRN [id number]) Out-Patient Physical Therapy Visit Information Visit Information Visit Start Time 14:29 Visit Stop Time 15:09 Total Visit Minutes 40 Visit Number 7 Evaluation Information Evaluation Date 03/20/20 Precautions Precautions Somewhat recent injury to the R shoulder. Scoliosis, Osteopenia, Thoracic compression fracture 12/2018. PT-OP-B Current Condition Start: 03/18/20 18:29 Freq: Status: Active Protocol: Document 03/20/20 08:14 LRN (Rec: 03/20/20 09:12 LRN [id number]) Current Condition History of Current Condition Onset Date 9 months ago Current Complaints L shoulder, decreased use History of Current Condition L handed. States she thinks she pulled a muscle in her arm . States she was helping someone put some wood in a trunk and felt something strain when she did it. She was already doing PT for her R shoulder that is now normal. She was at a wellness check when it was recommended that she have therapy for her L shoulder. Prior Treatments and Tests R shoulder therapy after tripping over her dog and falling. Future Testing and Treatments Planned None Treatment Goals Patient/Caregiver Goals Pt goals with therapy is to be able to -lift arm to get things out of 1st shelf from the bottom and above, -improve dressing ability, -able to cut food without pain , -to sleep on the dominant L side (usually sleeps on that side). Prior Functional Status Baseline Function- ADL's Independent Baseline Function- Mobility Independent Baseline Function- Other Slept on the L side at nighttime. Current Functional Impairments (Reported) Functional Limitations- ADL's Difficulty cutting food with dominant L hand. Difficulty putting coat/tops on. Functional Limitations- Other Not able to sleep on L side. Personal Factors Other Personal Factors That May Effect Son is at home assisting her, Therapy/Recovery Thoracic Compression fracture 12/2018, Osteopenia 03/2020. PT-OP-C Subjective Start: 03/18/20 18:29 Freq: Status: Active Protocol: Document 04/24/20 14:29 LRN (Rec: 04/24/20 15:03 LRN [id number]) OP-PT Subjective Patient Comments Patient Comments Thinks she is a little better, walking without pain just now . PT-OP-E Functional Tests Start: 03/18/20 18:29 Freq: Status: Active Protocol: Document 03/20/20 08:14 LRN (Rec: 03/21/20 14:18 LRN [id number]) Functional Tests Apley's Scratch Test Action 1- Left Reach between spine & lateral border of scapula Action 1- Right Reach to Spine Action 2- Left T1 Action 2- Right T2 Action 3- Left T9 Action 3- Right T7 PT-OP-H Neuro Start: 03/18/20 18:29 Freq: Status: Active Protocol: Document 03/20/20 08:14 LRN (Rec: 03/21/20 14:18 LRN [id number]) Sensation Evaluation Gross Sensation Gross Sensation WNL Deep Tendon Reflex & Clonus Assessment Deep Tendon Reflex Bilateral Bicep Deep Tendon Reflex 2+ Normal PT-OP-J Posture/Palpation/Skin Start: 03/18/20 18:29 Freq: Status: Active Protocol: Document 03/20/20 08:14 LRN (Rec: 03/21/20 14:18 LRN [id number]) Posture Evaluation Position Standing L-Spine Posture Increased Lordosis Scapula Posture (L) Rotated Down Weight Distribution Weight Shifted Anterior Comments Posture Comments C-Curve of the thoracic spine with apex on the right. Protruding abdomen posture. L shoulder is low. PT-OP-K Range of Motion Start: 03/18/20 18:29 Freq: Status: Active Protocol: Document 04/22/20 12:46 LRN (Rec: 04/22/20 13:32 LRN [id number]) Shoulder Goniometric Range of Motion Shoulder Left Passive Testing Position Supine Flexion 135 PT-OP-M Strength Start: 03/18/20 18:29 Freq: Status: Active Protocol: Document 03/20/20 08:14 LRN (Rec: 03/21/20 14:18 LRN [id number]) Shoulder Strength Shoulder Manual Muscle Testing Right Flexion 4+ Good+ Abduction (C5) 5 Normal External Rotation 3+ Fair+ Internal Rotation 3+ Fair+ Left Flexion 3- Fair- Abduction (C5) 2+ Poor+ External Rotation 3+ Fair+ Internal Rotation 3+ Fair+ Elbow/Forearm Strength Elbow and Forearm Manual Muscle Testing Right Comments Generally 5/5. Left Comments Generally 5/5. PT-OP-Q Treatments Start: 03/18/20 18:29 Freq: Status: Active Protocol: Document 04/24/20 14:29 LRN (Rec: 04/24/20 15:03 LRN [id number]) Cardio Equipment Recumbent Elliptical ([employer]) Duration (Minutes) 8 Resistance 1 Seat Position 8 Therapeutic Exercises Supine Exercises Lat Pull down Supine Exercise Name Lat Pull down Resistance Lev 1 T-Band Reps/Minutes 15 x 2 Comments Had to determine ROM/movement tolerance & pt moves slowly Chest press plus Supine Exercise Name Chest press + with cane Side bilateral Resistance 0#, 1# Reps/Minutes 15 x each Comments Pt moving slowly and carefully Shoulder flex Supine Exercise Name Shoulder flex stretch w/cane - starting at sides Side bilateral Reps/Minutes 3' Comments Pt moves slowly Sidelying Exercises Shoulder AB Sidelying Exercise Name Shoulder AB with elbow bent Side left Reps/Minutes 10x Comments Attempted with arm straight with and w/o 1# Shoulder IR Sidelying Exercise Name Shoulder IR Side left Resistance 2#, 3# Reps/Minutes 20 x, 10x respectively Comments Careful and slow movement L shoulder ER Sidelying Exercise Name Shoulder ER Side left Resistance 2#, 1# Reps/Minutes 10x 2, 10x respectively Sitting Exercises Guerrero Sitting Exercise Name L shoulder flex/AB stretch Reps/Minutes 5' Comments 155 deg's flex PT-OP-R Modalities Start: 03/18/20 18:29 Freq: Status: Active Protocol: Document 04/18/20 12:45 LRN (Rec: 04/18/20 13:32 LRN [id number]) Hot Pack/Cold Pack Treatment Cold Pack Location L shoulder Patient Position Supine Treatment Duration (minutes) 10 Patient Tolerance Good PT-OP-T Assessment and Plan Start: 03/18/20 18:29 Freq: Status: Active Protocol: Document 04/24/20 14:29 LRN (Rec: 04/24/20 15:03 LRN [id number]) Physical Therapy Assessment Goals Five Impairment Pt not able to sleep at prior level (usually sleeps on L side). Short Term Goal (STG) Pt will be educate in various positions for sidelie sleeping to alleviate L shoulder pain during the night. STG Duration 03/24/20 Longterm Goal (LTG) Pt will be able to sleep comfortably on the dominant L side. LTG Duration 05/19/20 Four Impairment Decreased L shoulder ROM (PROM degs in sup: flex 144, AB 90, ER 42, ER 62) Short Term Goal (STG) Improve L shoulder PROM to normal (R shoulder in sup in degs: flex 150, AB 180, ER 62, IR 80). STG Duration 03/31/20 Animal Cop Goal (LTG) Pt will be able to reach up to the 1st shelf from the bottom without pain. LTG Duration 05/19/20 Three Impairment Pain with functional use L UE cutting food to eat. Short Term Goal (STG) Improve L shoulder strength to no less than 3+/5 within available range STG Duration 04/21/20 Longterm Goal (LTG) Pt will be able to cut food without pain using her L UE. LTG Duration 05/19/20 (04/18/20: MET GOAL) Two Impairment Decreased L shoulder AROM limiting dressing ability. Short Term Goal (STG) Improve L shoulder AROM ( Initial in sitting: flex 137, AB 70, IR to T9, ER to T1) STG Duration 04/21/20 Animal Cop Goal (LTG) Pt will be able to put on tops without L shoulder pain. LTG Duration 05/19/20 One Impairment Pt lacks an appropriate self care HEP. Longterm Goal (LTG) Pt will be independent with a self care HEP. LTG Duration 05/19/20 (04/11/20: Progressing) Progress Towards Goals Progress Comments L shoulder passive flexion from 130 deg's last session to 150 deg's today. Assessment Summary Assessment Decreased tolerance to L shoulder AB movement, but increased L shoulder passive flexion. Physical Therapy Plan Frequency and Duration Frequency of Treatment 2x/Week Plan of Care Start Date 03/20/20 Plan of Care End Date 05/19/20 Next Visit Focus/Plan Next Note Type Treatment Note Next Visit Plan Progress L shoulder rehab for L shoulder impingement syndrome with focus for a couple weeks on improving ROM. Progress strengthening of scap stabilizers > RC. Increase L shoulder AB mobility with manual treatment . STM TrP rx to L UT/ posterior scalenes, Supraspinatus. Assess L GHJ & ACJ mobility with mobilization as needed. Stretch to subscapularis if needed. End with CP and possibly EStim if needed for pain management.
--- NOTE | 2020-04-29 13:10 | PT.OTN ---
Current Diagnoses Muscle weakness (generalized) (04/29/20) Strain of muscle(s) and tendon(s) of the rotator cuff of left shoulder, initial encounter (04/29/20) Physical Therapy Treatment Note PT-OP-A Visit Information Start: 03/18/20 18:29 Freq: Status: Active Protocol: Document 04/29/20 09:51 LRN (Rec: 04/29/20 10:36 LRN [id number]) Out-Patient Physical Therapy Visit Information Visit Information Visit Type Treatment Note Visit Start Time 09:51 Visit Stop Time 10:36 Total Visit Minutes 45 Visit Number 8 Evaluation Information Evaluation Date 03/20/20 Precautions Precautions Somewhat recent injury to the R shoulder. Scoliosis, Osteopenia, Thoracic compression fracture 12/2018. PT-OP-B Current Condition Start: 03/18/20 18:29 Freq: Status: Active Protocol: Document 03/20/20 08:14 LRN (Rec: 03/20/20 09:12 LRN [id number]) Current Condition History of Current Condition Onset Date 9 months ago Current Complaints L shoulder, decreased use History of Current Condition L handed. States she thinks she pulled a muscle in her arm . States she was helping someone put some wood in a trunk and felt something strain when she did it. She was already doing PT for her R shoulder that is now normal. She was at a wellness check when it was recommended that she have therapy for her L shoulder. Prior Treatments and Tests R shoulder therapy after tripping over her dog and falling. Future Testing and Treatments Planned None Treatment Goals Patient/Caregiver Goals Pt goals with therapy is to be able to -lift arm to get things out of 1st shelf from the bottom and above, -improve dressing ability, -able to cut food without pain , -to sleep on the dominant L side (usually sleeps on that side). Prior Functional Status Baseline Function- ADL's Independent Baseline Function- Mobility Independent Baseline Function- Other Slept on the L side at nighttime. Current Functional Impairments (Reported) Functional Limitations- ADL's Difficulty cutting food with dominant L hand. Difficulty putting coat/tops on. Functional Limitations- Other Not able to sleep on L side. Personal Factors Other Personal Factors That May Effect Son is at home assisting her, Therapy/Recovery Thoracic Compression fracture 12/2018, Osteopenia 03/2020. PT-OP-C Subjective Start: 03/18/20 18:29 Freq: Status: Active Protocol: Document 04/29/20 09:51 LRN (Rec: 04/29/20 10:36 LRN [id number]) OP-PT Subjective Patient Comments Patient Comments Can do the exercise better on the side lifting the arm (ER). Pain is the same. Pt chose to ice her L shoulder at home . PT-OP-E Functional Tests Start: 03/18/20 18:29 Freq: Status: Active Protocol: Document 03/20/20 08:14 LRN (Rec: 03/21/20 14:18 LRN [id number]) Functional Tests Apley's Scratch Test Action 1- Left Reach between spine & lateral border of scapula Action 1- Right Reach to Spine Action 2- Left T1 Action 2- Right T2 Action 3- Left T9 Action 3- Right T7 PT-OP-H Neuro Start: 03/18/20 18:29 Freq: Status: Active Protocol: Document 03/20/20 08:14 LRN (Rec: 03/21/20 14:18 LRN [id number]) Sensation Evaluation Gross Sensation Gross Sensation WNL Deep Tendon Reflex & Clonus Assessment Deep Tendon Reflex Bilateral Bicep Deep Tendon Reflex 2+ Normal PT-OP-J Posture/Palpation/Skin Start: 03/18/20 18:29 Freq: Status: Active Protocol: Document 03/20/20 08:14 LRN (Rec: 03/21/20 14:18 LRN [id number]) Posture Evaluation Position Standing L-Spine Posture Increased Lordosis Scapula Posture (L) Rotated Down Weight Distribution Weight Shifted Anterior Comments Posture Comments C-Curve of the thoracic spine with apex on the right. Protruding abdomen posture. L shoulder is low. PT-OP-K Range of Motion Start: 03/18/20 18:29 Freq: Status: Active Protocol: Document 04/29/20 09:51 LRN (Rec: 04/29/20 10:36 LRN [id number]) Shoulder Goniometric Range of Motion Shoulder Left Active Shoulder ROM WFL No Testing Position Sitting Flexion 130 PT-OP-M Strength Start: 03/18/20 18:29 Freq: Status: Active Protocol: Document 03/20/20 08:14 LRN (Rec: 03/21/20 14:18 LRN [id number]) Shoulder Strength Shoulder Manual Muscle Testing Right Flexion 4+ Good+ Abduction (C5) 5 Normal External Rotation 3+ Fair+ Internal Rotation 3+ Fair+ Left Flexion 3- Fair- Abduction (C5) 2+ Poor+ External Rotation 3+ Fair+ Internal Rotation 3+ Fair+ Elbow/Forearm Strength Elbow and Forearm Manual Muscle Testing Right Comments Generally 5/5. Left Comments Generally 5/5. PT-OP-Q Treatments Start: 03/18/20 18:29 Freq: Status: Active Protocol: Document 04/29/20 09:51 LRN (Rec: 04/29/20 10:36 LRN [id number]) Cardio Equipment Recumbent Elliptical ([email or web address]) Duration (Minutes) 8 Resistance 1 Seat Position 8 Therapeutic Exercises Sidelying Exercises Shoulder AB Sidelying Exercise Name Shoulder AB with elbow bent Side left Reps/Minutes 10x Comments Attempted with arm straight with and w/o 1# Shoulder IR Sidelying Exercise Name Shoulder IR Side left Resistance 2# Reps/Minutes 30x Comments Careful and slow movement L shoulder ER Sidelying Exercise Name Shoulder ER Side left Resistance 0# Reps/Minutes 10x 3 Sitting Exercises Guerrero Sitting Exercise Name L shoulder flex/AB stretch & AAROM Reps/Minutes 6' Comments 155 deg's flex Shoulder IR Sitting Exercise Name Towel roll stretch behind f/b active stretch Standing Exercises Shoulder AB Standing Exercise Name AB with arm resting on T-Ball (80degs AB) &w/arm on table reaching to side Side left Equipment Used Red T-Ball, Plinth hgt 28 Reps/Minutes 6' Shoulder rotation Standing Exercise Name Hands on T-Ball rolling ball side to side Equipment Used Red T-Ball Reps/Minutes 3' Shoulder flex Standing Exercise Name Wall wash exer: 1 and 2 armed Side bilateral Equipment Used wash towel Reps/Minutes 6' Self-Care/Home Management Treatment Education Patient Education Posture Other Education Educated and discussed options for nighttime positioning for comfort of L shoulder. PT-OP-R Modalities Start: 03/18/20 18:29 Freq: Status: Active Protocol: Document 04/18/20 12:45 LRN (Rec: 04/18/20 13:32 LRN [id number]) Hot Pack/Cold Pack Treatment Cold Pack Location L shoulder Patient Position Supine Treatment Duration (minutes) 10 Patient Tolerance Good PT-OP-T Assessment and Plan Start: 03/18/20 18:29 Freq: Status: Active Protocol: Document 04/29/20 09:51 LRN (Rec: 04/29/20 10:36 LRN [id number]) Physical Therapy Assessment Goals Five Impairment Pt not able to sleep at prior level (usually sleeps on L side). Short Term Goal (STG) Pt will be educate in various positions for sidelie sleeping to alleviate L shoulder pain during the night. STG Duration 03/24/20 (04/29/20: MET GOAL) Prison Goal (LTG) Pt will be able to sleep comfortably on the dominant L side. LTG Duration 05/19/20 (04/29/20: MET GOAL) Four Impairment Decreased L shoulder ROM (PROM degs in sup: flex 144, AB 90, ER 42, ER 62) Short Term Goal (STG) Improve L shoulder PROM to normal (R shoulder in sup in degs: flex 150, AB 180, ER 62, IR 80). STG Duration 03/31/20 Prison Goal (LTG) Pt will be able to reach up to the 1st shelf from the bottom without pain. LTG Duration 05/19/20 Three Impairment Pain with functional use L UE cutting food to eat. Short Term Goal (STG) Improve L shoulder strength to no less than 3+/5 within available range STG Duration 04/21/20 Solvent Mixer Goal (LTG) Pt will be able to cut food without pain using her L UE. LTG Duration 05/19/20 (04/18/20: MET GOAL) Two Impairment Decreased L shoulder AROM limiting dressing ability. Short Term Goal (STG) Improve L shoulder AROM ( Initial in sitting: flex 137, AB 70, IR to T9, ER to T1) STG Duration 04/21/20 Solvent Mixer Goal (LTG) Pt will be able to put on tops without L shoulder pain. LTG Duration 05/19/20 One Impairment Pt lacks an appropriate self care HEP. Solvent Mixer Goal (LTG) Pt will be independent with a self care HEP. LTG Duration 05/19/20 (04/11/20: Progressing) Progress Towards Goals Progress Comments STG #5 MET. LTG #5 MET. Assessment Summary Assessment Pt is now able to position comfortable on the L shoulder at night and is sleeping at her prior level. L Pec tightness may be limiting shoulder ER movement with ex strengthening. Physical Therapy Plan Frequency and Duration Frequency of Treatment 2x/Week Plan of Care Start Date 03/20/20 Plan of Care End Date 05/19/20 Next Visit Focus/Plan Next Note Type Treatment Note Next Visit Plan Assess L pectoralis rj/min for restriction of movement for ER strengthening. Progress L shoulder impingement rehab with focus for a couple weeks on improving ROM. Progress strengthening of scap stabilizers > RC. Increase L shoulder AB mobility with manual treatment. TrP rx to L UT/posterior scalenes, Supraspinatus. Assess L GHJ & ACJ mobility with mobilization as needed. Stretch to subscapularis if needed. End with CP and possibly EStim if needed for pain management.
--- NOTE | 2020-05-01 17:02 | PT.OTN ---
Current Diagnoses Muscle weakness (generalized) (05/01/20) Strain of muscle(s) and tendon(s) of the rotator cuff of left shoulder, initial encounter (05/01/20) Physical Therapy Treatment Note PT-OP-A Visit Information Start: 03/18/20 18:29 Freq: Status: Active Protocol: Document 05/01/20 08:11 LRN (Rec: 05/01/20 10:38 LRN [id number]) Out-Patient Physical Therapy Visit Information Visit Information Visit Type Treatment Note Visit Start Time 09:54 Visit Stop Time 10:37 Total Visit Minutes 43 Visit Number 9 Evaluation Information Evaluation Date 03/20/20 Precautions Precautions Somewhat recent injury to the R shoulder. Scoliosis, Osteopenia, Thoracic compression fracture 12/2018. PT-OP-B Current Condition Start: 03/18/20 18:29 Freq: Status: Active Protocol: Document 03/20/20 08:14 LRN (Rec: 03/20/20 09:12 LRN [id number]) Current Condition History of Current Condition Onset Date 9 months ago Current Complaints L shoulder, decreased use History of Current Condition L handed. States she thinks she pulled a muscle in her arm . States she was helping someone put some wood in a trunk and felt something strain when she did it. She was already doing PT for her R shoulder that is now normal. She was at a wellness check when it was recommended that she have therapy for her L shoulder. Prior Treatments and Tests R shoulder therapy after tripping over her dog and falling. Future Testing and Treatments Planned None Treatment Goals Patient/Caregiver Goals Pt goals with therapy is to be able to -lift arm to get things out of 1st shelf from the bottom and above, -improve dressing ability, -able to cut food without pain , -to sleep on the dominant L side (usually sleeps on that side). Prior Functional Status Baseline Function- ADL's Independent Baseline Function- Mobility Independent Baseline Function- Other Slept on the L side at nighttime. Current Functional Impairments (Reported) Functional Limitations- ADL's Difficulty cutting food with dominant L hand. Difficulty putting coat/tops on. Functional Limitations- Other Not able to sleep on L side. Personal Factors Other Personal Factors That May Effect Son is at home assisting her, Therapy/Recovery Thoracic Compression fracture 12/2018, Osteopenia 03/2020. PT-OP-C Subjective Start: 03/18/20 18:29 Freq: Status: Active Protocol: Document 05/01/20 08:11 LRN (Rec: 05/01/20 10:38 LRN [id number]) OP-PT Subjective Patient Comments Patient Comments Tiny bit better because she can do the ex's a little better at home. States she still gets tweeks of pain in L shoulder. PT-OP-E Functional Tests Start: 03/18/20 18:29 Freq: Status: Active Protocol: Document 03/20/20 08:14 LRN (Rec: 03/21/20 14:18 LRN [id number]) Functional Tests Apley's Scratch Test Action 1- Left Reach between spine & lateral border of scapula Action 1- Right Reach to Spine Action 2- Left T1 Action 2- Right T2 Action 3- Left T9 Action 3- Right T7 PT-OP-H Neuro Start: 03/18/20 18:29 Freq: Status: Active Protocol: Document 03/20/20 08:14 LRN (Rec: 03/21/20 14:18 LRN [id number]) Sensation Evaluation Gross Sensation Gross Sensation WNL Deep Tendon Reflex & Clonus Assessment Deep Tendon Reflex Bilateral Bicep Deep Tendon Reflex 2+ Normal PT-OP-J Posture/Palpation/Skin Start: 03/18/20 18:29 Freq: Status: Active Protocol: Document 03/20/20 08:14 LRN (Rec: 03/21/20 14:18 LRN [id number]) Posture Evaluation Position Standing L-Spine Posture Increased Lordosis Scapula Posture (L) Rotated Down Weight Distribution Weight Shifted Anterior Comments Posture Comments C-Curve of the thoracic spine with apex on the right. Protruding abdomen posture. L shoulder is low. PT-OP-K Range of Motion Start: 03/18/20 18:29 Freq: Status: Active Protocol: Document 05/01/20 08:11 LRN (Rec: 05/01/20 10:38 LRN [id number]) Shoulder Goniometric Range of Motion Shoulder Left Passive Shoulder ROM WFL No Testing Position Supine Flexion 137 Left Active Shoulder ROM WFL No Testing Position Sitting Flexion 115 Comments Sitting Passive flex is 130 degs PT-OP-M Strength Start: 03/18/20 18:29 Freq: Status: Active Protocol: Document 03/20/20 08:14 LRN (Rec: 03/21/20 14:18 LRN [id number]) Shoulder Strength Shoulder Manual Muscle Testing Right Flexion 4+ Good+ Abduction (C5) 5 Normal External Rotation 3+ Fair+ Internal Rotation 3+ Fair+ Left Flexion 3- Fair- Abduction (C5) 2+ Poor+ External Rotation 3+ Fair+ Internal Rotation 3+ Fair+ Elbow/Forearm Strength Elbow and Forearm Manual Muscle Testing Right Comments Generally 5/5. Left Comments Generally 5/5. PT-OP-Q Treatments Start: 03/18/20 18:29 Freq: Status: Active Protocol: Document 05/01/20 08:11 LRN (Rec: 05/01/20 10:38 LRN [id number]) Cardio Equipment Recumbent Elliptical ([employer]) Duration (Minutes) 8 Resistance 1 Seat Position 8 Therapeutic Exercises Supine Exercises L Pec Stretch Supine Exercise Name L Pec Stretch w/hand on head Side left Reps/Minutes 3' Lat Pull down Supine Exercise Name Lat Pull down Resistance Lev 1 T-Band Reps/Minutes 15 x 2 Comments Had to determine ROM/movement tolerance & pt moves slowly Chest press plus Supine Exercise Name Chest press + with cane Side bilateral Resistance 0#, 1# Reps/Minutes 15 x each Comments Pt moving slowly and carefully Shoulder flex Supine Exercise Name Shoulder flex stretch w/cane - starting at sides Side bilateral Reps/Minutes 3' Comments Pt moves slowly Sitting Exercises Dennis Sitting Exercise Name L shoulder flex & AAROM Reps/Minutes 6' Manual Therapy Treatment Soft Tissue Mobilization L Pec Minor & Major Body Location L Pec Minor & Major Mobilization Type Sustained Pressure,Trigger Point Release Intensity/Depth Moderate Body Position Supine PT-OP-R Modalities Start: 03/18/20 18:29 Freq: Status: Active Protocol: Document 04/18/20 12:45 LRN (Rec: 04/18/20 13:32 LRN [id number]) Hot Pack/Cold Pack Treatment Cold Pack Location L shoulder Patient Position Supine Treatment Duration (minutes) 10 Patient Tolerance Good PT-OP-T Assessment and Plan Start: 03/18/20 18:29 Freq: Status: Active Protocol: Document 05/01/20 08:11 LRN (Rec: 05/01/20 10:38 LRN [id number]) Physical Therapy Assessment Goals Five Impairment Pt not able to sleep at prior level (usually sleeps on L side). Short Term Goal (STG) Pt will be educate in various positions for sidelie sleeping to alleviate L shoulder pain during the night. STG Duration 03/24/20 (04/29/20: MET GOAL) [facility] Goal (LTG) Pt will be able to sleep comfortably on the dominant L side. LTG Duration 05/19/20 (04/29/20: MET GOAL) Four Impairment Decreased L shoulder ROM (PROM degs in sup: flex 144, AB 90, ER 42, ER 62) Short Term Goal (STG) Improve L shoulder PROM to normal (R shoulder in sup in degs: flex 150, AB 180, ER 62, IR 80). STG Duration 03/31/20 Building Serviceman Goal (LTG) Pt will be able to reach up to the 1st shelf from the bottom without pain. LTG Duration 05/19/20 Three Impairment Pain with functional use L UE cutting food to eat. Short Term Goal (STG) Improve L shoulder strength to no less than 3+/5 within available range STG Duration 04/21/20 [facility] Goal (LTG) Pt will be able to cut food without pain using her L UE. LTG Duration 05/19/20 (04/18/20: MET GOAL) Two Impairment Decreased L shoulder AROM limiting dressing ability. Short Term Goal (STG) Improve L shoulder AROM ( Initial in sitting: flex 137, AB 70, IR to T9, ER to T1) STG Duration 04/21/20 [facility] Goal (LTG) Pt will be able to put on tops without L shoulder pain. LTG Duration 05/19/20 One Impairment Pt lacks an appropriate self care HEP. [facility] Goal (LTG) Pt will be independent with a self care HEP. LTG Duration 05/19/20 (04/11/20: Progressing) Assessment Summary Assessment Pt showed less active shoulder ROM after use of dennis, possibly due to soreness from exercise. Pt L shoulder ROM is slow to progress. She has many active trP's in L shoulder anteriorly and at Coracoid process limiting shoulder ER and flex AROM. Pt may have possible labral tear ? Physical Therapy Plan Frequency and Duration Frequency of Treatment 2x/Week Plan of Care Start Date 03/20/20 Plan of Care End Date 05/19/20 Next Visit Focus/Plan Next Note Type Treatment Note Next Visit Plan Assess L pectoralis rj/min for restriction of movement for ER strengthening. Progress L shoulder impingement rehab with focus for a couple weeks on improving ROM. Progress strengthening of scap stabilizers > RC. Increase L shoulder AB mobility with manual treatment. TrP rx to L UT/posterior scalenes, Supraspinatus. Assess L GHJ & ACJ mobility with mobilization as needed. Stretch to subscapularis if needed. End with CP and possibly EStim if needed for pain management.
--- NOTE | 2020-05-06 17:39 | PT.OTN ---
Current Diagnoses Muscle weakness (generalized) (05/06/20) Strain of muscle(s) and tendon(s) of the rotator cuff of left shoulder, initial encounter (05/06/20) Physical Therapy Treatment Note PT-OP-A Visit Information Start: 03/18/20 18:29 Freq: Status: Active Protocol: Document 05/06/20 10:32 LRN (Rec: 05/06/20 11:19 LRN [id number]) Out-Patient Physical Therapy Visit Information Visit Information Visit Type Progress Note Visit Start Time 10:31 Visit Stop Time 11:17 Total Visit Minutes 46 Visit Number 10 Evaluation Information Evaluation Date 03/20/20 Precautions Precautions Somewhat recent injury to the R shoulder. Scoliosis, Osteopenia, Thoracic compression fracture 12/2018. PT-OP-B Current Condition Start: 03/18/20 18:29 Freq: Status: Active Protocol: Document 03/20/20 08:14 LRN (Rec: 03/20/20 09:12 LRN [id number]) Current Condition History of Current Condition Onset Date 9 months ago Current Complaints L shoulder, decreased use History of Current Condition L handed. States she thinks she pulled a muscle in her arm . States she was helping someone put some wood in a trunk and felt something strain when she did it. She was already doing PT for her R shoulder that is now normal. She was at a wellness check when it was recommended that she have therapy for her L shoulder. Prior Treatments and Tests R shoulder therapy after tripping over her dog and falling. Future Testing and Treatments Planned None Treatment Goals Patient/Caregiver Goals Pt goals with therapy is to be able to -lift arm to get things out of 1st shelf from the bottom and above, -improve dressing ability, -able to cut food without pain , -to sleep on the dominant L side (usually sleeps on that side). Prior Functional Status Baseline Function- ADL's Independent Baseline Function- Mobility Independent Baseline Function- Other Slept on the L side at nighttime. Current Functional Impairments (Reported) Functional Limitations- ADL's Difficulty cutting food with dominant L hand. Difficulty putting coat/tops on. Functional Limitations- Other Not able to sleep on L side. Personal Factors Other Personal Factors That May Effect Son is at home assisting her, Therapy/Recovery Thoracic Compression fracture 12/2018, Osteopenia 03/2020. PT-OP-C Subjective Start: 03/18/20 18:29 Freq: Status: Active Protocol: Document 05/06/20 10:32 LRN (Rec: 05/06/20 11:19 LRN [id number]) OP-PT Subjective Patient Comments Patient Comments States she is able to do more exercise on the L arm so she feels her strength is better. Patient Questionnaires Quick Dash- Upper Extremity Quick Dash UE Score 34.09 Quick Dash UE Impairment 20 to 39% Impaired (Score 20- 39) OP-PT Pain Assessment Location Left Shoulder Pain Location Details Anterior Left Shoulder Intensity 4 Scale Used Numeric (0 - 10) Description Aching,Cramping Description- Other Worsens with reaching Frequency Constant PT-OP-E Functional Tests Start: 03/18/20 18:29 Freq: Status: Active Protocol: Document 03/20/20 08:14 LRN (Rec: 03/21/20 14:18 LRN [id number]) Functional Tests Apley's Scratch Test Action 1- Left Reach between spine & lateral border of scapula Action 1- Right Reach to Spine Action 2- Left T1 Action 2- Right T2 Action 3- Left T9 Action 3- Right T7 PT-OP-H Neuro Start: 03/18/20 18:29 Freq: Status: Active Protocol: Document 03/20/20 08:14 LRN (Rec: 03/21/20 14:18 LRN [id number]) Sensation Evaluation Gross Sensation Gross Sensation WNL Deep Tendon Reflex & Clonus Assessment Deep Tendon Reflex Bilateral Bicep Deep Tendon Reflex 2+ Normal PT-OP-J Posture/Palpation/Skin Start: 03/18/20 18:29 Freq: Status: Active Protocol: Document 03/20/20 08:14 LRN (Rec: 03/21/20 14:18 LRN [id number]) Posture Evaluation Position Standing L-Spine Posture Increased Lordosis Scapula Posture (L) Rotated Down Weight Distribution Weight Shifted Anterior Comments Posture Comments C-Curve of the thoracic spine with apex on the right. Protruding abdomen posture. L shoulder is low. PT-OP-K Range of Motion Start: 03/18/20 18:29 Freq: Status: Active Protocol: Document 05/06/20 10:32 LRN (Rec: 05/06/20 11:19 LRN [id number]) Shoulder Goniometric Range of Motion Shoulder Right Passive Testing Position Supine Flexion 145 Abduction 120 External Rotation at 90 degrees 70 Abduction Internal Rotation 60 Left Passive Shoulder ROM WFL No Testing Position Supine Flexion 128 Abduction 90 External Rotation at 90 degrees 55 Abduction Internal Rotation 50 Right Active Testing Position Sitting Flexion 140 Abduction 115 Internal Rotation Behind Back (text) T7 Left Active Shoulder ROM WFL No Testing Position Sitting Flexion 117 Abduction 77 Internal Rotation Behind Back (text) T9 PT-OP-M Strength Start: 03/18/20 18:29 Freq: Status: Active Protocol: Document 05/06/20 10:32 LRN (Rec: 05/06/20 17:17 LRN [id number]) Shoulder Strength Shoulder Manual Muscle Testing Right Flexion 4+ Good+ Abduction (C5) 5 Normal External Rotation 3+ Fair+ Internal Rotation 3+ Fair+ Left Flexion 2+ Poor+ Abduction (C5) 2+ Poor+ External Rotation 4+ Good+ Internal Rotation 3 Fair PT-OP-Q Treatments Start: 03/18/20 18:29 Freq: Status: Active Protocol: Document 05/06/20 10:32 LRN (Rec: 05/06/20 11:19 LRN [id number]) Cardio Equipment Recumbent Elliptical ([employer]) Duration (Minutes) 9 Resistance 1 Seat Position 8 Therapeutic Exercises Supine Exercises Shoulder AB Supine Exercise Name Shoulder AB active & passive stretch Reps/Minutes 4' Comments Passive ROM taken Shoulder flex Supine Exercise Name Shoulder Flex stretch active with cane & left passive Side bilateral Reps/Minutes 8' Comments ROM taken Shoulder ER/IR Supine Exercise Name Shoulder ER/IR stretch active and passive Side left Reps/Minutes 10' Comments Passive ROM taken Sitting Exercises Shoulder flex, ER, AB Sitting Exercise Name MMT Side left Guerrero Sitting Exercise Name L shoulder flex, Passive & AAROM Side left Reps/Minutes 8' Comments AROM taken Shoulder IR Sitting Exercise Name Stretch behind f/b active stretch Side left Comments Active ROM & MMT taken bilaterally Self-Care/Home Management Treatment Education Other Education Discussed results of recheck. Recommended pt follow up with physician with my recommendation of further testing due to ongoing pain and decreased mobility. Discussed placing pt on HEP next visit and holding PT until further medical assessment decided. PT-OP-R Modalities Start: 03/18/20 18:29 Freq: Status: Active Protocol: Document 04/18/20 12:45 LRN (Rec: 04/18/20 13:32 LRN [id number]) Hot Pack/Cold Pack Treatment Cold Pack Location L shoulder Patient Position Supine Treatment Duration (minutes) 10 Patient Tolerance Good PT-OP-T Assessment and Plan Start: 03/18/20 18:29 Freq: Status: Active Protocol: Document 05/06/20 10:32 LRN (Rec: 05/06/20 11:19 LRN [id number]) Physical Therapy Assessment Rehab Potential Rehabilitation Potential Fair Evaluation Complexity Number of Personal Factors/Comorbidities 1-2 Number of Body Systems Impaired 4 or More Clinical Presentation at Evaluation Evolving Impairments Impairments Activity Tolerance,Functional Activities,Pain,ROM,Soft Tissue Mobility,Strength Goals Five Impairment Pt not able to sleep at prior level (usually sleeps on L side). Short Term Goal (STG) Pt will be educate in various positions for sidelie sleeping to alleviate L shoulder pain during the night. STG Duration 03/24/20 (04/29/20: MET GOAL) Long-Term Goal (LTG) Pt will be able to sleep comfortably on the dominant L side. LTG Duration 05/19/20 (04/29/20: MET GOAL) Four Impairment Decreased L shoulder ROM (PROM degs in sup: flex 144, AB 90, ER 42, IR 62) Short Term Goal (STG) Improve L shoulder PROM to normal (R shoulder in sup in degs: flex 150, AB 180, ER 62, IR 80). (05/06/20: L shoulder PROM in supine: flex 128, AB 90, ER 55, IR 50) STG Duration 06/19/20 (05/06/20: Improved only with ER) Long-Term Goal (LTG) Pt will be able to reach up to the 1st shelf from the bottom without pain. LTG Duration 07/05/20 (05/06/20: NOT MET) Three Impairment Pain with functional use L UE cutting food to eat. Short Term Goal (STG) Improve L shoulder strength to no less than 3+/5 within available range (05/06/20: L shoulder: flex 2+ /5, AB no change, ER 4+/5, IR no change. Initial evaluation strength: flex 3-/5, AB 2+/5, ER 3+/5, IR 3+/5). STG Duration 06/19/20 (05/06/20: NOT MET) Twill Cutter Goal (LTG) Pt will be able to cut food without pain using her L UE. LTG Duration 05/19/20 (04/18/20: MET GOAL) Two Impairment Decreased L shoulder AROM limiting dressing ability. Short Term Goal (STG) Improve L shoulder AROM ( Initial in sitting in deg's: flex 137, AB 70, IR to T9, ER to T1). (05/06/20: L shoulder AROM, sitting, in deg's: flex 117, AB 77, IR to T9) STG Duration 06/19/20 (05/06/20: NOT MET) Twill Cutter Goal (LTG) Pt will be able to put on tops without L shoulder pain. LTG Duration 07/05/20 (05/06/20: NOT MET) One Impairment Pt lacks an appropriate self care HEP. Long-Term Goal (LTG) Pt will be independent with a self care HEP. LTG Duration 07/05/20 (04/11/20: Progressing) Assessment Summary Assessment Pt demonstrates some improvement in L shoulder function due with ability to cut food and comfortable sleep on the L side one positioned comfortably. She shows improvement in L shoulder strength only with ER. Her AROM has improved with ER and decreased tolerance to PROM due to pain. Her pain appears to be greater with her pain consistently in the anterior shoulder. I would recommend further imaging to help identify possible reason for her pain and dysfunction prior to further physical therapy. We will continue per your recommendation. Anterior L shoulder pain with arm ext movement on Biodex, possibly anterior shoulder weakness.......Pt needs further imaging due to decreased mobilith and continues pain in L shoulder. Physical Therapy Plan Frequency and Duration Frequency of Treatment 2x/Week Plan of Care Start Date 05/06/20 Plan of Care End Date 07/05/20 Therapeutic Interventions Therapeutic Interventions Home Exercise Program,Manual Therapy,Neuromuscular Re- education,Patient/Caregiver Education,Self-Care/Home Management,Soft Tissue Mobilization,Therapeutic Exercises Modalities Cold Pack/Ice Massage,Electric Stimulation,Hot Packs, Iontophoresis,Ultrasound Other Therapeutic Interventions Iontophoresis with 4mg/mL of Dexamethasone with Sodium Phosphate Next Visit Focus/Plan Next Note Type Treatment Note Next Visit Plan Pt to schedule follow up visit with MD, for possible further imaging or other medical assessment/care. Pt will be put on hold until she is able to meet with her physician. Continue per physician recommendation. If pt returns , progress L shoulder rehab with focus on improving ROM and strength/stability at the L shoulder. Progress strengthening of scap stabilizers and rotator cuff muscles. Increase L shoulder AB mobility with manual treatment. TrP rx to L UT/ posterior scalenes, Supraspinatus. Assess L GHJ & ACJ mobility and mobilization as needed. Stretch to subscapularis if needed. End with CP and possibly EStim for pain management if needed.
--- NOTE | 2020-05-06 17:41 | PT.OTN ---
Current Diagnoses Muscle weakness (generalized) (05/06/20) Strain of muscle(s) and tendon(s) of the rotator cuff of left shoulder, initial encounter (05/06/20) Physical Therapy Treatment Note PT-OP-A Visit Information Start: 03/18/20 18:29 Freq: Status: Active Protocol: Document 05/06/20 10:32 LRN (Rec: 05/06/20 11:19 LRN [id number]) Out-Patient Physical Therapy Visit Information Visit Information Visit Type Progress Note Visit Start Time 10:31 Visit Stop Time 11:17 Total Visit Minutes 46 Visit Number 10 Evaluation Information Evaluation Date 03/20/20 Precautions Precautions Somewhat recent injury to the R shoulder. Scoliosis, Osteopenia, Thoracic compression fracture 12/2018. PT-OP-B Current Condition Start: 03/18/20 18:29 Freq: Status: Active Protocol: Document 03/20/20 08:14 LRN (Rec: 03/20/20 09:12 LRN [id number]) Current Condition History of Current Condition Onset Date 9 months ago Current Complaints L shoulder, decreased use History of Current Condition L handed. States she thinks she pulled a muscle in her arm . States she was helping someone put some wood in a trunk and felt something strain when she did it. She was already doing PT for her R shoulder that is now normal. She was at a wellness check when it was recommended that she have therapy for her L shoulder. Prior Treatments and Tests R shoulder therapy after tripping over her dog and falling. Future Testing and Treatments Planned None Treatment Goals Patient/Caregiver Goals Pt goals with therapy is to be able to -lift arm to get things out of 1st shelf from the bottom and above, -improve dressing ability, -able to cut food without pain , -to sleep on the dominant L side (usually sleeps on that side). Prior Functional Status Baseline Function- ADL's Independent Baseline Function- Mobility Independent Baseline Function- Other Slept on the L side at nighttime. Current Functional Impairments (Reported) Functional Limitations- ADL's Difficulty cutting food with dominant L hand. Difficulty putting coat/tops on. Functional Limitations- Other Not able to sleep on L side. Personal Factors Other Personal Factors That May Effect Son is at home assisting her, Therapy/Recovery Thoracic Compression fracture 12/2018, Osteopenia 03/2020. PT-OP-C Subjective Start: 03/18/20 18:29 Freq: Status: Active Protocol: Document 05/06/20 10:32 LRN (Rec: 05/06/20 11:19 LRN [id number]) OP-PT Subjective Patient Comments Patient Comments States she is able to do more exercise on the L arm so she feels her strength is better. Patient Questionnaires Quick Dash- Upper Extremity Quick Dash UE Score 34.09 Quick Dash UE Impairment 20 to 39% Impaired (Score 20- 39) OP-PT Pain Assessment Location Left Shoulder Pain Location Details Anterior Left Shoulder Intensity 4 Scale Used Numeric (0 - 10) Description Aching,Cramping Description- Other Worsens with reaching Frequency Constant PT-OP-E Functional Tests Start: 03/18/20 18:29 Freq: Status: Active Protocol: Document 03/20/20 08:14 LRN (Rec: 03/21/20 14:18 LRN [id number]) Functional Tests Apley's Scratch Test Action 1- Left Reach between spine & lateral border of scapula Action 1- Right Reach to Spine Action 2- Left T1 Action 2- Right T2 Action 3- Left T9 Action 3- Right T7 PT-OP-H Neuro Start: 03/18/20 18:29 Freq: Status: Active Protocol: Document 03/20/20 08:14 LRN (Rec: 03/21/20 14:18 LRN [id number]) Sensation Evaluation Gross Sensation Gross Sensation WNL Deep Tendon Reflex & Clonus Assessment Deep Tendon Reflex Bilateral Bicep Deep Tendon Reflex 2+ Normal PT-OP-J Posture/Palpation/Skin Start: 03/18/20 18:29 Freq: Status: Active Protocol: Document 03/20/20 08:14 LRN (Rec: 03/21/20 14:18 LRN [id number]) Posture Evaluation Position Standing L-Spine Posture Increased Lordosis Scapula Posture (L) Rotated Down Weight Distribution Weight Shifted Anterior Comments Posture Comments C-Curve of the thoracic spine with apex on the right. Protruding abdomen posture. L shoulder is low. PT-OP-K Range of Motion Start: 03/18/20 18:29 Freq: Status: Active Protocol: Document 05/06/20 10:32 LRN (Rec: 05/06/20 11:19 LRN [id number]) Shoulder Goniometric Range of Motion Shoulder Right Passive Testing Position Supine Flexion 145 Abduction 120 External Rotation at 90 degrees 70 Abduction Internal Rotation 60 Left Passive Shoulder ROM WFL No Testing Position Supine Flexion 128 Abduction 90 External Rotation at 90 degrees 55 Abduction Internal Rotation 50 Right Active Testing Position Sitting Flexion 140 Abduction 115 Internal Rotation Behind Back (text) T7 Left Active Shoulder ROM WFL No Testing Position Sitting Flexion 117 Abduction 77 Internal Rotation Behind Back (text) T9 PT-OP-M Strength Start: 03/18/20 18:29 Freq: Status: Active Protocol: Document 05/06/20 10:32 LRN (Rec: 05/06/20 17:17 LRN [id number]) Shoulder Strength Shoulder Manual Muscle Testing Right Flexion 4+ Good+ Abduction (C5) 5 Normal External Rotation 3+ Fair+ Internal Rotation 3+ Fair+ Left Flexion 2+ Poor+ Abduction (C5) 2+ Poor+ External Rotation 4+ Good+ Internal Rotation 3 Fair PT-OP-Q Treatments Start: 03/18/20 18:29 Freq: Status: Active Protocol: Document 05/06/20 10:32 LRN (Rec: 05/06/20 11:19 LRN [id number]) Cardio Equipment Recumbent Elliptical ([place]) Duration (Minutes) 9 Resistance 1 Seat Position 8 Therapeutic Exercises Supine Exercises Shoulder AB Supine Exercise Name Shoulder AB active & passive stretch Reps/Minutes 4' Comments Passive ROM taken Shoulder flex Supine Exercise Name Shoulder Flex stretch active with cane & left passive Side bilateral Reps/Minutes 8' Comments ROM taken Shoulder ER/IR Supine Exercise Name Shoulder ER/IR stretch active and passive Side left Reps/Minutes 10' Comments Passive ROM taken Sitting Exercises Shoulder flex, ER, AB Sitting Exercise Name MMT Side left Guerrero Sitting Exercise Name L shoulder flex, Passive & AAROM Side left Reps/Minutes 8' Comments AROM taken Shoulder IR Sitting Exercise Name Stretch behind f/b active stretch Side left Comments Active ROM & MMT taken bilaterally Self-Care/Home Management Treatment Education Other Education Discussed results of recheck. Recommended pt follow up with physician with my recommendation of further testing due to ongoing pain and decreased mobility. Discussed placing pt on HEP next visit and holding PT until further medical assessment decided. PT-OP-R Modalities Start: 03/18/20 18:29 Freq: Status: Active Protocol: Document 04/18/20 12:45 LRN (Rec: 04/18/20 13:32 LRN [id number]) Hot Pack/Cold Pack Treatment Cold Pack Location L shoulder Patient Position Supine Treatment Duration (minutes) 10 Patient Tolerance Good PT-OP-T Assessment and Plan Start: 03/18/20 18:29 Freq: Status: Active Protocol: Document 05/06/20 10:32 LRN (Rec: 05/06/20 11:19 LRN [id number]) Physical Therapy Assessment Rehab Potential Rehabilitation Potential Fair Evaluation Complexity Number of Personal Factors/Comorbidities 1-2 Number of Body Systems Impaired 4 or More Clinical Presentation at Evaluation Evolving Impairments Impairments Activity Tolerance,Functional Activities,Pain,ROM,Soft Tissue Mobility,Strength Goals Five Impairment Pt not able to sleep at prior level (usually sleeps on L side). Short Term Goal (STG) Pt will be educate in various positions for sidelie sleeping to alleviate L shoulder pain during the night. STG Duration 03/24/20 (04/29/20: MET GOAL) Usp Goal (LTG) Pt will be able to sleep comfortably on the dominant L side. LTG Duration 05/19/20 (04/29/20: MET GOAL) Four Impairment Decreased L shoulder ROM (PROM degs in sup: flex 144, AB 90, ER 42, IR 62) Short Term Goal (STG) Improve L shoulder PROM to normal (R shoulder in sup in degs: flex 150, AB 180, ER 62, IR 80). (05/06/20: L shoulder PROM in supine: flex 128, AB 90, ER 55, IR 50) STG Duration 06/19/20 (05/06/20: Improved only with ER) Usp Goal (LTG) Pt will be able to reach up to the 1st shelf from the bottom without pain. LTG Duration 07/05/20 (05/06/20: NOT MET) Three Impairment Pain with functional use L UE cutting food to eat. Short Term Goal (STG) Improve L shoulder strength to no less than 3+/5 within available range (05/06/20: L shoulder: flex 2+ /5, AB no change, ER 4+/5, IR no change. Initial evaluation strength: flex 3-/5, AB 2+/5, ER 3+/5, IR 3+/5). STG Duration 06/19/20 (05/06/20: NOT MET) [employer] Specialist Goal (LTG) Pt will be able to cut food without pain using her L UE. LTG Duration 05/19/20 (04/18/20: MET GOAL) Two Impairment Decreased L shoulder AROM limiting dressing ability. Short Term Goal (STG) Improve L shoulder AROM ( Initial in sitting in deg's: flex 137, AB 70, IR to T9, ER to T1). (05/06/20: L shoulder AROM, sitting, in deg's: flex 117, AB 77, IR to T9) STG Duration 06/19/20 (05/06/20: NOT MET) [employer] Specialist Goal (LTG) Pt will be able to put on tops without L shoulder pain. LTG Duration 07/05/20 (05/06/20: NOT MET) One Impairment Pt lacks an appropriate self care HEP. Usp Goal (LTG) Pt will be independent with a self care HEP. LTG Duration 07/05/20 (04/11/20: Progressing) Assessment Summary Assessment Pt demonstrates some improvement in L shoulder function due with ability to cut food and comfortable sleep on the L side one positioned comfortably. She shows improvement in L shoulder strength only with ER. Her AROM has improved with ER and decreased tolerance to PROM due to pain. Her pain appears to be greater with her pain consistently in the anterior shoulder. I would recommend further imaging to help identify possible reason for her pain and dysfunction prior to further physical therapy due to decreased mobility and continued pain in L shoulder. We will continue per your recommendation. Physical Therapy Plan Frequency and Duration Frequency of Treatment 2x/Week Plan of Care Start Date 05/06/20 Plan of Care End Date 07/05/20 Therapeutic Interventions Therapeutic Interventions Home Exercise Program,Manual Therapy,Neuromuscular Re- education,Patient/Caregiver Education,Self-Care/Home Management,Soft Tissue Mobilization,Therapeutic Exercises Modalities Cold Pack/Ice Massage,Electric Stimulation,Hot Packs, Iontophoresis,Ultrasound Other Therapeutic Interventions Iontophoresis with 4mg/mL of Dexamethasone with Sodium Phosphate Next Visit Focus/Plan Next Note Type Treatment Note Next Visit Plan Pt to schedule follow up visit with MD, for possible further imaging or other medical assessment/care. Pt will be put on hold until she is able to meet with her physician. Continue per physician recommendation. If pt returns , progress L shoulder rehab with focus on improving ROM and strength/stability at the L shoulder. Progress strengthening of scap stabilizers and rotator cuff muscles. Increase L shoulder AB mobility with manual treatment. TrP rx to L UT/ posterior scalenes, Supraspinatus. Assess L GHJ & ACJ mobility and mobilization as needed. Stretch to subscapularis if needed. End with CP and possibly EStim for pain management if needed.
--- NOTE | 2020-05-06 18:05 | PT.OTN ---
Current Diagnoses Muscle weakness (generalized) (05/06/20) Strain of muscle(s) and tendon(s) of the rotator cuff of left shoulder, initial encounter (05/06/20) Physical Therapy Treatment Note PT-OP-A Visit Information Start: 03/18/20 18:29 Freq: Status: Active Protocol: Document 05/06/20 10:32 LRN (Rec: 05/06/20 11:19 LRN [id number]) Out-Patient Physical Therapy Visit Information Visit Information Visit Type Progress Note Visit Start Time 10:31 Visit Stop Time 11:17 Total Visit Minutes 46 Visit Number 10 Evaluation Information Evaluation Date 03/20/20 Precautions Precautions Somewhat recent injury to the R shoulder. Scoliosis, Osteopenia, Thoracic compression fracture 12/2018. PT-OP-B Current Condition Start: 03/18/20 18:29 Freq: Status: Active Protocol: Document 03/20/20 08:14 LRN (Rec: 03/20/20 09:12 LRN [id number]) Current Condition History of Current Condition Onset Date 9 months ago Current Complaints L shoulder, decreased use History of Current Condition L handed. States she thinks she pulled a muscle in her arm . States she was helping someone put some wood in a trunk and felt something strain when she did it. She was already doing PT for her R shoulder that is now normal. She was at a wellness check when it was recommended that she have therapy for her L shoulder. Prior Treatments and Tests R shoulder therapy after tripping over her dog and falling. Future Testing and Treatments Planned None Treatment Goals Patient/Caregiver Goals Pt goals with therapy is to be able to -lift arm to get things out of 1st shelf from the bottom and above, -improve dressing ability, -able to cut food without pain , -to sleep on the dominant L side (usually sleeps on that side). Prior Functional Status Baseline Function- ADL's Independent Baseline Function- Mobility Independent Baseline Function- Other Slept on the L side at nighttime. Current Functional Impairments (Reported) Functional Limitations- ADL's Difficulty cutting food with dominant L hand. Difficulty putting coat/tops on. Functional Limitations- Other Not able to sleep on L side. Personal Factors Other Personal Factors That May Effect Son is at home assisting her, Therapy/Recovery Thoracic Compression fracture 12/2018, Osteopenia 03/2020. PT-OP-C Subjective Start: 03/18/20 18:29 Freq: Status: Active Protocol: Document 05/06/20 10:32 LRN (Rec: 05/06/20 11:19 LRN [id number]) OP-PT Subjective Patient Comments Patient Comments States she is able to do more exercise on the L arm so she feels her strength is better. Patient Questionnaires Quick Dash- Upper Extremity Quick Dash UE Score 34.09 Quick Dash UE Impairment 20 to 39% Impaired (Score 20- 39) OP-PT Pain Assessment Location Left Shoulder Pain Location Details Anterior Left Shoulder Intensity 4 Scale Used Numeric (0 - 10) Description Aching,Cramping Description- Other Worsens with reaching Frequency Constant PT-OP-E Functional Tests Start: 03/18/20 18:29 Freq: Status: Active Protocol: Document 03/20/20 08:14 LRN (Rec: 03/21/20 14:18 LRN [id number]) Functional Tests Apley's Scratch Test Action 1- Left Reach between spine & lateral border of scapula Action 1- Right Reach to Spine Action 2- Left T1 Action 2- Right T2 Action 3- Left T9 Action 3- Right T7 PT-OP-H Neuro Start: 03/18/20 18:29 Freq: Status: Active Protocol: Document 03/20/20 08:14 LRN (Rec: 03/21/20 14:18 LRN [id number]) Sensation Evaluation Gross Sensation Gross Sensation WNL Deep Tendon Reflex & Clonus Assessment Deep Tendon Reflex Bilateral Bicep Deep Tendon Reflex 2+ Normal PT-OP-J Posture/Palpation/Skin Start: 03/18/20 18:29 Freq: Status: Active Protocol: Document 03/20/20 08:14 LRN (Rec: 03/21/20 14:18 LRN [id number]) Posture Evaluation Position Standing L-Spine Posture Increased Lordosis Scapula Posture (L) Rotated Down Weight Distribution Weight Shifted Anterior Comments Posture Comments C-Curve of the thoracic spine with apex on the right. Protruding abdomen posture. L shoulder is low. PT-OP-K Range of Motion Start: 03/18/20 18:29 Freq: Status: Active Protocol: Document 05/06/20 10:32 LRN (Rec: 05/06/20 11:19 LRN [id number]) Shoulder Goniometric Range of Motion Shoulder Right Passive Testing Position Supine Flexion 145 Abduction 120 External Rotation at 90 degrees 70 Abduction Internal Rotation 60 Left Passive Shoulder ROM WFL No Testing Position Supine Flexion 128 Abduction 90 External Rotation at 90 degrees 55 Abduction Internal Rotation 50 Right Active Testing Position Sitting Flexion 140 Abduction 115 Internal Rotation Behind Back (text) T7 Left Active Shoulder ROM WFL No Testing Position Sitting Flexion 117 Abduction 77 Internal Rotation Behind Back (text) T9 PT-OP-M Strength Start: 03/18/20 18:29 Freq: Status: Active Protocol: Document 05/06/20 10:32 LRN (Rec: 05/06/20 17:17 LRN [id number]) Shoulder Strength Shoulder Manual Muscle Testing Right Flexion 4+ Good+ Abduction (C5) 5 Normal External Rotation 3+ Fair+ Internal Rotation 3+ Fair+ Left Flexion 2+ Poor+ Abduction (C5) 2+ Poor+ External Rotation 4+ Good+ Internal Rotation 3 Fair PT-OP-Q Treatments Start: 03/18/20 18:29 Freq: Status: Active Protocol: Document 05/06/20 10:32 LRN (Rec: 05/06/20 11:19 LRN [id number]) Cardio Equipment Recumbent Elliptical ([employer]) Duration (Minutes) 9 Resistance 1 Seat Position 8 Therapeutic Exercises Supine Exercises Shoulder AB Supine Exercise Name Shoulder AB active & passive stretch Reps/Minutes 4' Comments Passive ROM taken Shoulder flex Supine Exercise Name Shoulder Flex stretch active with cane & left passive Side bilateral Reps/Minutes 8' Comments ROM taken Shoulder ER/IR Supine Exercise Name Shoulder ER/IR stretch active and passive Side left Reps/Minutes 10' Comments Passive ROM taken Sitting Exercises Shoulder flex, ER, AB Sitting Exercise Name MMT Side left Gu[place]ro Sitting Exercise Name L shoulder flex, Passive & AAROM Side left Reps/Minutes 8' Comments AROM taken Shoulder IR Sitting Exercise Name Stretch behind f/b active stretch Side left Comments Active ROM & MMT taken bilaterally Self-Care/Home Management Treatment Education Other Education Discussed results of recheck. Recommended pt follow up with physician with my recommendation of further testing due to ongoing pain and decreased mobility. Discussed placing pt on HEP next visit and holding PT until further medical assessment decided. PT-OP-R Modalities Start: 03/18/20 18:29 Freq: Status: Active Protocol: Document 04/18/20 12:45 LRN (Rec: 04/18/20 13:32 LRN [id number]) Hot Pack/Cold Pack Treatment Cold Pack Location L shoulder Patient Position Supine Treatment Duration (minutes) 10 Patient Tolerance Good PT-OP-T Assessment and Plan Start: 03/18/20 18:29 Freq: Status: Active Protocol: Document 05/06/20 10:32 LRN (Rec: 05/06/20 11:19 LRN [id number]) Physical Therapy Assessment Rehab Potential Rehabilitation Potential Fair Evaluation Complexity Number of Personal Factors/Comorbidities 1-2 Number of Body Systems Impaired 4 or More Clinical Presentation at Evaluation Evolving Impairments Impairments Activity Tolerance,Functional Activities,Pain,ROM,Soft Tissue Mobility,Strength Goals Five Impairment Pt not able to sleep at prior level (usually sleeps on L side). Short Term Goal (STG) Pt will be educate in various positions for sidelie sleeping to alleviate L shoulder pain during the night. STG Duration 03/24/20 (04/29/20: MET GOAL) Detention Goal (LTG) Pt will be able to sleep comfortably on the dominant L side. LTG Duration 05/19/20 (04/29/20: MET GOAL) Four Impairment Decreased L shoulder ROM (PROM degs in sup: flex 144, AB 90, ER 42, IR 62) Short Term Goal (STG) Improve L shoulder PROM to normal (R shoulder in sup in degs: flex 150, AB 180, ER 62, IR 80). (05/06/20: L shoulder PROM in supine: flex 128, AB 90, ER 55, IR 50) STG Duration 06/19/20 (05/06/20: Improved only with ER) Detention Goal (LTG) Pt will be able to reach up to the 1st shelf from the bottom without pain. LTG Duration 07/05/20 (05/06/20: NOT MET) Three Impairment Pain with functional use L UE cutting food to eat. Short Term Goal (STG) Improve L shoulder strength to no less than 3+/5 within available range (05/06/20: L shoulder: flex 2+ /5, AB no change, ER 4+/5, IR no change. Initial evaluation strength: flex 3-/5, AB 2+/5, ER 3+/5, IR 3+/5). STG Duration 06/19/20 (05/06/20: NOT MET) Advertising Copy Writer Goal (LTG) Pt will be able to cut food without pain using her L UE. LTG Duration 05/19/20 (04/18/20: MET GOAL) Two Impairment Decreased L shoulder AROM limiting dressing ability. Short Term Goal (STG) Improve L shoulder AROM ( Initial in sitting in deg's: flex 137, AB 70, IR to T9, ER to T1). (05/06/20: L shoulder AROM, sitting, in deg's: flex 117, AB 77, IR to T9) STG Duration 06/19/20 (05/06/20: NOT MET) [employer]vertising Copy Writer Goal (LTG) Pt will be able to put on tops without L shoulder pain. LTG Duration 07/05/20 (05/06/20: NOT MET) One Impairment Pt lacks an appropriate self care HEP. Detention Goal (LTG) Pt will be independent with a self care HEP. LTG Duration 07/05/20 (04/11/20: Progressing) Assessment Summary Assessment Pt demonstrates some improvement in L shoulder function due with ability to cut food and comfortable sleep on the L side one positioned comfortably. She shows improvement in L shoulder strength only with ER. Her AROM has improved with ER and decreased tolerance to PROM due to pain. Her pain appears to be greater with her pain consistently in the anterior shoulder. I would recommend further imaging to help identify possible reason for her pain and dysfunction prior to further physical therapy due to decreased mobility and continued pain in L shoulder. We will continue per your recommendation. Physical Therapy Plan Frequency and Duration Frequency of Treatment 2x/Week Plan of Care Start Date 05/06/20 Plan of Care End Date 07/05/20 Therapeutic Interventions Therapeutic Interventions Home Exercise Program,Manual Therapy,Neuromuscular Re- education,Patient/Caregiver Education,Self-Care/Home Management,Soft Tissue Mobilization,Therapeutic Exercises Modalities Cold Pack/Ice Massage,Electric Stimulation,Hot Packs, Iontophoresis,Ultrasound Other Therapeutic Interventions Iontophoresis with 4mg/mL of Dexamethasone with Sodium Phosphate Next Visit Focus/Plan Next Note Type Treatment Note Next Visit Plan Pt to schedule follow up visit with MD, for possible further imaging or other medical assessment/care. She will be seen for one more visit to place her on her home program while she wait to be seen by her referring physician, then the pt will be put on hold until she is able to meet with her physician. Continue per physician recommendation. If pt returns, progress L shoulder rehab with focus on improving ROM and strength/ stability at the L shoulder. Progress strengthening of scap stabilizers and rotator cuff muscles. Increase L shoulder AB mobility with manual treatment. TrP rx to L UT/ posterior scalenes, Supraspinatus. Assess L GHJ & ACJ mobility and mobilization as needed. Stretch to subscapularis if needed. End with CP and possibly EStim for pain management if needed.
--- NOTE | 2020-05-08 18:27 | PT.OTN ---
Current Diagnoses Muscle weakness (generalized) (05/08/20) Strain of muscle(s) and tendon(s) of the rotator cuff of left shoulder, initial encounter (05/08/20) Physical Therapy Treatment Note PT-OP-A Visit Information Start: 03/18/20 18:29 Freq: Status: Active Protocol: Document 05/08/20 10:43 LRN (Rec: 05/08/20 11:26 LRN [id number]) Out-Patient Physical Therapy Visit Information Visit Information Visit Type Treatment Note Visit Start Time 10:43 Visit Stop Time 11:26 Total Visit Minutes 43 Visit Number 11 Evaluation Information Evaluation Date 03/20/20 Precautions Precautions Somewhat recent injury to the R shoulder. Scoliosis, Osteopenia, Thoracic compression fracture 12/2018. PT-OP-B Current Condition Start: 03/18/20 18:29 Freq: Status: Active Protocol: Document 03/20/20 08:14 LRN (Rec: 03/20/20 09:12 LRN [id number]) Current Condition History of Current Condition Onset Date 9 months ago Current Complaints L shoulder, decreased use History of Current Condition L handed. States she thinks she pulled a muscle in her arm . States she was helping someone put some wood in a trunk and felt something strain when she did it. She was already doing PT for her R shoulder that is now normal. She was at a wellness check when it was recommended that she have therapy for her L shoulder. Prior Treatments and Tests R shoulder therapy after tripping over her dog and falling. Future Testing and Treatments Planned None Treatment Goals Patient/Caregiver Goals Pt goals with therapy is to be able to -lift arm to get things out of 1st shelf from the bottom and above, -improve dressing ability, -able to cut food without pain , -to sleep on the dominant L side (usually sleeps on that side). Prior Functional Status Baseline Function- ADL's Independent Baseline Function- Mobility Independent Baseline Function- Other Slept on the L side at nighttime. Current Functional Impairments (Reported) Functional Limitations- ADL's Difficulty cutting food with dominant L hand. Difficulty putting coat/tops on. Functional Limitations- Other Not able to sleep on L side. Personal Factors Other Personal Factors That May Effect Son is at home assisting her, Therapy/Recovery Thoracic Compression fracture 12/2018, Osteopenia 03/2020. PT-OP-C Subjective Start: 03/18/20 18:29 Freq: Status: Active Protocol: Document 05/08/20 10:43 LRN (Rec: 05/08/20 11:26 LRN [id number]) OP-PT Subjective Patient Comments Patient Comments L shoulder pain is 2/10. States she is scheduled to have an X-ray after therapy. States she hasn't rescheduled her Yony Dr. vega yet. PT-OP-E Functional Tests Start: 03/18/20 18:29 Freq: Status: Active Protocol: Document 03/20/20 08:14 LRN (Rec: 03/21/20 14:18 LRN [id number]) Functional Tests Apley's Scratch Test Action 1- Left Reach between spine & lateral border of scapula Action 1- Right Reach to Spine Action 2- Left T1 Action 2- Right T2 Action 3- Left T9 Action 3- Right T7 PT-OP-H Neuro Start: 03/18/20 18:29 Freq: Status: Active Protocol: Document 03/20/20 08:14 LRN (Rec: 03/21/20 14:18 LRN [id number]) Sensation Evaluation Gross Sensation Gross Sensation WNL Deep Tendon Reflex & Clonus Assessment Deep Tendon Reflex Bilateral Bicep Deep Tendon Reflex 2+ Normal PT-OP-J Posture/Palpation/Skin Start: 03/18/20 18:29 Freq: Status: Active Protocol: Document 03/20/20 08:14 LRN (Rec: 03/21/20 14:18 LRN [id number]) Posture Evaluation Position Standing L-Spine Posture Increased Lordosis Scapula Posture (L) Rotated Down Weight Distribution Weight Shifted Anterior Comments Posture Comments C-Curve of the thoracic spine with apex on the right. Protruding abdomen posture. L shoulder is low. PT-OP-K Range of Motion Start: 03/18/20 18:29 Freq: Status: Active Protocol: Document 05/06/20 10:32 LRN (Rec: 05/06/20 11:19 LRN [id number]) Shoulder Goniometric Range of Motion Shoulder Right Passive Testing Position Supine Flexion 145 Abduction 120 External Rotation at 90 degrees 70 Abduction Internal Rotation 60 Left Passive Shoulder ROM WFL No Testing Position Supine Flexion 128 Abduction 90 External Rotation at 90 degrees 55 Abduction Internal Rotation 50 Right Active Testing Position Sitting Flexion 140 Abduction 115 Internal Rotation Behind Back (text) T7 Left Active Shoulder ROM WFL No Testing Position Sitting Flexion 117 Abduction 77 Internal Rotation Behind Back (text) T9 PT-OP-M Strength Start: 03/18/20 18:29 Freq: Status: Active Protocol: Document 05/06/20 10:32 LRN (Rec: 05/06/20 17:17 LRN [id number]) Shoulder Strength Shoulder Manual Muscle Testing Right Flexion 4+ Good+ Abduction (C5) 5 Normal External Rotation 3+ Fair+ Internal Rotation 3+ Fair+ Left Flexion 2+ Poor+ Abduction (C5) 2+ Poor+ External Rotation 4+ Good+ Internal Rotation 3 Fair PT-OP-Q Treatments Start: 03/18/20 18:29 Freq: Status: Active Protocol: Document 05/08/20 10:43 LRN (Rec: 05/08/20 11:26 LRN [id number]) Cardio Equipment Recumbent Elliptical (MyUnfold) Duration (Minutes) 9 Resistance 1 Seat Position 8 Therapeutic Exercises Supine Exercises Shoulder ER/IR Supine Exercise Name Shoulder ER/IR stretch active and passive Side left Comments Hands behind head Sidelying Exercises Shoulder AB Sidelying Exercise Name Reviewed with pt. Shoulder IR Sidelying Exercise Name Shoulder IR strengthening Reps/Minutes 10x 3 L shoulder ER Sidelying Exercise Name Shoulder ER strengthening Reps/Minutes 10 x 2 Sitting Exercises Scapular ex Sitting Exercise Name Scapular clock Reps/Minutes 10x each Comments Extra time for training. Shoulder ER stretch Sitting Exercise Name Hands behind head for Active shoulder ER stretch Side bilateral Reps/Minutes 2' Comments Discontinued in sitting due to pain at L shoulder Shoulder flex/table slide Sitting Exercise Name Shoulder flex/table slide Side left Reps/Minutes 10x Comments Cuing needed to keep painfree range, adjusted position x 2 Shoulder IR Sitting Exercise Name Stretch behind f/b active stretch Side left Self-Care/Home Management Treatment Education Patient Education Home Exercise Program Activities Self-Care/Home Management Activities Issued and reviewed handouts for HEP: Sitting shoulder flex (tabletop), IR, and supine ER stretch; Scapular clocks and sidelie shoulder AB . Reviewed previously issued HEP : Shoulder ER/IR strengthening. PT-OP-R Modalities Start: 03/18/20 18:29 Freq: Status: Active Protocol: Document 04/18/20 12:45 LRN (Rec: 04/18/20 13:32 LRN [id number]) Hot Pack/Cold Pack Treatment Cold Pack Location L shoulder Patient Position Supine Treatment Duration (minutes) 10 Patient Tolerance Good PT-OP-T Assessment and Plan Start: 03/18/20 18:29 Freq: Status: Active Protocol: Document 05/08/20 10:43 LRN (Rec: 05/08/20 11:26 LRN [id number]) Physical Therapy Assessment Goals Five Impairment Pt not able to sleep at prior level (usually sleeps on L side). Short Term Goal (STG) Pt will be educate in various positions for sidelie sleeping to alleviate L shoulder pain during the night. STG Duration 03/24/20 (04/29/20: MET GOAL) Risk Engineer Goal (LTG) Pt will be able to sleep comfortably on the dominant L side. LTG Duration 05/19/20 (04/29/20: MET GOAL) Four Impairment Decreased L shoulder ROM (PROM degs in sup: flex 144, AB 90, ER 42, IR 62) Short Term Goal (STG) Improve L shoulder PROM to normal (R shoulder in sup in degs: flex 150, AB 180, ER 62, IR 80). (05/06/20: L shoulder PROM in supine: flex 128, AB 90, ER 55, IR 50) STG Duration 06/19/20 (05/06/20: Improved only with ER) Correction Goal (LTG) Pt will be able to reach up to the 1st shelf from the bottom without pain. LTG Duration 07/05/20 (05/06/20: NOT MET) Three Impairment Pain with functional use L UE cutting food to eat. Short Term Goal (STG) Improve L shoulder strength to no less than 3+/5 within available range (05/06/20: L shoulder: flex 2+ /5, AB no change, ER 4+/5, IR no change. Initial evaluation strength: flex 3-/5, AB 2+/5, ER 3+/5, IR 3+/5). STG Duration 06/19/20 (05/06/20: NOT MET) Risk Engineer Goal (LTG) Pt will be able to cut food without pain using her L UE. LTG Duration 05/19/20 (04/18/20: MET GOAL) Two Impairment Decreased L shoulder AROM limiting dressing ability. Short Term Goal (STG) Improve L shoulder AROM ( Initial in sitting in deg's: flex 137, AB 70, IR to T9, ER to T1). (05/06/20: L shoulder AROM, sitting, in deg's: flex 117, AB 77, IR to T9) STG Duration 06/19/20 (05/06/20: NOT MET) Risk Engineer Goal (LTG) Pt will be able to put on tops without L shoulder pain. LTG Duration 07/05/20 (05/06/20: NOT MET) One Impairment Pt lacks an appropriate self care HEP. Risk Engineer Goal (LTG) Pt will be independent with a self care HEP. LTG Duration 07/05/20 (04/11/20: MET GOAL for current condition) Assessment Summary Assessment The pt demonstrates good knowledge of her HEP when reviewed and appears to have a good understanding of new exercises issued. The pt is agreeable to hold discharge until she is able to schedule a follow up appt with Dr Darion Clifford and his assessment once further testing is obtained. If no internal derangement is present at the L shoulder then more aggressive PT would be appropriate. An MRI would be appropriate to determine soft tissue dysfunction before further therapy is recommended . Physical Therapy Plan Frequency and Duration Frequency of Treatment 2x/Week Plan of Care Start Date 05/06/20 Plan of Care End Date 07/05/20 Next Visit Focus/Plan Next Note Type Treatment Note Next Visit Plan Hold DC until pt is scheduled for follow up visit with MD, for possible further imaging ( MRI) or other medical assessment/care (ortho consult ) and if results are obtained before end of year. We will continue per physician recommendation or DC before end of year. If pt returns with no soft tissue or bony dysfunction, progress L shoulder rehab with focus on improving ROM and strength/ stability at the L shoulder to correct for impingement. Progress strengthening of scap stabilizers and rotator cuff muscles. Increase L shoulder AB mobility with manual treatment. TrP rx to L UT/ posterior scalenes, Supraspinatus. Assess L GHJ & ACJ mobility and mobilization . Stretch to subscapularis if needed. End with CP and possibly EStim for pain management if needed.
--- NOTE | 2020-06-06 13:46 | PT.OTN ---
Current Diagnoses Muscle weakness (generalized) (06/06/20) Strain of muscle(s) and tendon(s) of the rotator cuff of left shoulder, initial encounter (06/06/20) Physical Therapy Treatment Note PT-OP-A Visit Information Start: 03/18/20 18:29 Freq: Status: Active Protocol: Document 06/06/20 11:22 LRN (Rec: 06/06/20 12:26 LRN [id number]) Out-Patient Physical Therapy Visit Information Visit Information Visit Type Treatment Note Visit Start Time 11:22 Visit Stop Time 12:07 Total Visit Minutes 45 Visit Number 12 Evaluation Information Evaluation Date 03/20/20 Precautions Precautions Somewhat recent injury to the R shoulder. Scoliosis, Osteopenia, Thoracic compression fracture 12/2018. PT-OP-B Current Condition Start: 03/18/20 18:29 Freq: Status: Active Protocol: Document 06/06/20 11:22 LRN (Rec: 06/06/20 12:26 LRN [id number]) Current Condition History of Current Condition Onset Date 9 months ago Current Complaints L shoulder, decreased use History of Current Condition L handed. States she thinks she pulled a muscle in her arm . States she was helping someone put some wood in a trunk and felt something strain when she did it. She was already doing PT for her R shoulder that is now normal. She was at a wellness check when it was recommended that she have therapy for her L shoulder. 06/06/20: Pt attends therapy after a break. She states had a cortisone injection by Dr. Saleh, on 05/26/20, ~2 weeks ago and states her L shoulder is feeling better. Pain is 2- 3/10. No longer hurts just sitting. Prior Treatments and Tests R shoulder therapy after tripping over her dog and falling. Future Testing and Treatments Planned None Prior Functional Status Baseline Function- ADL's Independent Baseline Function- Mobility Independent Baseline Function- Other Slept on the L side at nighttime. Current Functional Impairments (Reported) Functional Limitations- ADL's NO difficulty cutting food with dominant L hand. Hurts putting arm out to don coat/tops on. Functional Limitations- Other Able to sleep on L side when positioned comfortably. Personal Factors Other Personal Factors That May Effect Son is at home assisting her, Therapy/Recovery Thoracic Compression fracture 12/2018, Osteopenia 03/2020. PT-OP-C Subjective Start: 03/18/20 18:29 Freq: Status: Active Protocol: Document 06/06/20 11:22 LRN (Rec: 06/06/20 12:26 LRN [id number]) OP-PT Subjective Patient Comments Patient Comments Has been doing ex: alternate arm lifts and shoulder AB. Next Dr. Lemons appt is 06/23. Patient Questionnaires Quick Dash- Upper Extremity Quick Dash UE Score 13.63 Quick Dash UE Impairment 1 to 19% Impaired (Score 1-19) OP-PT Pain Assessment Location Left Shoulder Pain Location Details Anterior Left Shoulder Intensity 1 Scale Used Numeric (0 - 10) Description Aching,Dull Description- Other Worsens with reaching Frequency Intermittent Pain Aggravating Factors Exercise Pain Alleviating Factors Medication,Rest Other Pain Alleviating Factors Tylenol 2-3x week PT-OP-E Functional Tests Start: 03/18/20 18:29 Freq: Status: Active Protocol: Document 06/06/20 11:22 LRN (Rec: 06/06/20 12:26 LRN [id number]) Functional Tests Apley's Scratch Test Action 1- Left Top of scapula Action 1- Right Below Scapula ridge Action 2- Left T1 Action 2- Right T3 Action 3- Left T8 Action 3- Right T5 PT-OP-H Neuro Start: 03/18/20 18:29 Freq: Status: Active Protocol: Document 03/20/20 08:14 LRN (Rec: 03/21/20 14:18 LRN [id number]) Sensation Evaluation Gross Sensation Gross Sensation WNL Deep Tendon Reflex & Clonus Assessment Deep Tendon Reflex Bilateral Bicep Deep Tendon Reflex 2+ Normal PT-OP-J Posture/Palpation/Skin Start: 03/18/20 18:29 Freq: Status: Active Protocol: Document 03/20/20 08:14 LRN (Rec: 03/21/20 14:18 LRN [id number]) Posture Evaluation Position Standing L-Spine Posture Increased Lordosis Scapula Posture (L) Rotated Down Weight Distribution Weight Shifted Anterior Comments Posture Comments C-Curve of the thoracic spine with apex on the right. Protruding abdomen posture. L shoulder is low. PT-OP-K Range of Motion Start: 03/18/20 18:29 Freq: Status: Active Protocol: Document 06/06/20 11:22 LRN (Rec: 06/06/20 12:26 LRN [id number]) Shoulder Goniometric Range of Motion Shoulder Right Active Shoulder ROM WFL Yes Testing Position Sitting Flexion 150 Extension 55 Abduction 175 External Rotation at 0 degrees Abduction 70 Internal Rotation Behind Back (text) T5 Comments AB is painfree range Left Active Shoulder ROM WFL No Testing Position Sitting Flexion 145 Extension 50 Abduction 95 External Rotation at 0 degrees Abduction 68 Internal Rotation Behind Back (text) T8 Comments AB ROM is painfree range PT-OP-M Strength Start: 03/18/20 18:29 Freq: Status: Active Protocol: Document 05/06/20 10:32 LRN (Rec: 05/06/20 17:17 LRN [id number]) Shoulder Strength Shoulder Manual Muscle Testing Right Flexion 4+ Good+ Abduction (C5) 5 Normal External Rotation 3+ Fair+ Internal Rotation 3+ Fair+ Left Flexion 2+ Poor+ Abduction (C5) 2+ Poor+ External Rotation 4+ Good+ Internal Rotation 3 Fair PT-OP-Q Treatments Start: 03/18/20 18:29 Freq: Status: Active Protocol: Document 06/06/20 11:22 LRN (Rec: 06/06/20 12:26 LRN [id number]) Therapeutic Exercises Sitting Exercises Windshield wipe @ 0 deg's AB Sitting Exercise Name L Windshield wipe Side bilateral Reps/Minutes 15x Shoulder circles backward Sitting Exercise Name Bkwd shoulder circles Side bilateral Reps/Minutes 10x Comments Much phys cuing and verbal cuing needed. Scapular ex Sitting Exercise Name Scapular pinch/depression Side left Reps/Minutes 5 hold x 10 Comments Phys cuing and direction needed Standing Exercises Shoulder AB Standing Exercise Name Active shoulder AB Side bilateral Reps/Minutes 15x Comments skoosh L shoulder pain, ROM taken bilaterally Shoulder rotation Standing Exercise Name Shoulder ER Side left Reps/Minutes 15x Comments ROM taken bilaterally Shoulder flex Standing Exercise Name Alternate arm lifts Side bilateral Reps/Minutes 15x Comments ROM taken bilaterally Self-Care/Home Management Treatment Education Patient Education Home Exercise Program Activities Self-Care/Home Management Activities Issued & reviewed HEP: Scapular clock, Scapular retraction, Windshield wipe in sitting (elbows by sides). PT-OP-R Modalities Start: 03/18/20 18:29 Freq: Status: Active Protocol: Document 04/18/20 12:45 LRN (Rec: 04/18/20 13:32 LRN [id number]) Hot Pack/Cold Pack Treatment Cold Pack Location L shoulder Patient Position Supine Treatment Duration (minutes) 10 Patient Tolerance Good PT-OP-T Assessment and Plan Start: 03/18/20 18:29 Freq: Status: Active Protocol: Document 06/06/20 11:22 LRN (Rec: 06/06/20 12:26 LRN [id number]) Physical Therapy Assessment Goals Five Impairment Pt not able to sleep at prior level (usually sleeps on L side). Short Term Goal (STG) Pt will be educate in various positions for sidelie sleeping to alleviate L shoulder pain during the night. STG Duration 03/24/20 (04/29/20: MET GOAL) Intermediate Goal (LTG) Pt will be able to sleep comfortably on the dominant L side. LTG Duration 05/19/20 (04/29/20: MET GOAL) Four Impairment Decreased L shoulder ROM (PROM degs in sup: flex 144, AB 90, ER 42, IR 62) Short Term Goal (STG) Improve L shoulder PROM to normal (R shoulder in sup in degs: flex 150, AB 180, ER 62, IR 80). (06/06/20: L shoulder AROM SITTING: flex 145, AB 95, ER 68, IR to T8) STG Duration 06/19/20 (06/06/20: Improved) Ob Tech Goal (LTG) Pt will be able to reach up to the 1st shelf from the bottom without pain. LTG Duration 07/05/20 (06/06/20: Sometime there is pain) Three Impairment Pain with functional use L UE cutting food to eat. Short Term Goal (STG) Improve L shoulder strength to no less than 3+/5 within available range (05/06/20: L shoulder: flex 2+ /5, AB no change, ER 4+/5, IR no change. Initial evaluation strength: flex 3-/5, AB 2+/5, ER 3+/5, IR 3+/5). STG Duration 06/19/20 Ob Tech Goal (LTG) Pt will be able to cut food without pain using her L UE. LTG Duration 05/19/20 (04/18/20: MET GOAL) Two Impairment Decreased L shoulder AROM limiting dressing ability. Short Term Goal (STG) Painfree with L shoulder AROM (Initial in sitting in deg's: flex 137, AB 70, IR to T9, ER to T1). (06/06/20: L shoulder AROM SITTING: flex 145, AB 95, ER 68 degs/T1, IR to T8) STG Duration 06/19/20 (05/06/20: NOT MET) Ob Tech Goal (LTG) Pt will be able to put on tops without L shoulder pain. LTG Duration 07/05/20 (06/06/20: NOT MET) One Impairment Pt lacks an appropriate self care HEP. Ob Tech Goal (LTG) Pt will be independent with a self care HEP. LTG Duration 07/05/20 (04/11/20: MET GOAL for current condition) Progress Towards Goals Progress Comments L shoulder AROM (sitting) shows improvement with flex, & AB. She is able to reach to high shelving with occasional pain. She has improved function per UE QuickDASH score of 13.63 (1 <20% impaired) as compared to her initial score of 20 (20<40 % impaired). Assessment Summary Assessment Pt returns with improved soft tissue dysfunction after cortisone injection ~1.5 weeks ago; therefore progress L shoulder rehab with focus on improving ROM and scapular strength/stability at the L shoulder to correct for impingement. Physical Therapy Plan Frequency and Duration Frequency of Treatment 2x/Week Plan of Care Start Date 05/06/20 Plan of Care End Date 07/05/20 Next Visit Focus/Plan Next Note Type Treatment Note Next Visit Plan Progress slowly, strengthening of scap stabilizers and carefully rotator cuff muscles (following recent cortisone injection). Increase L shoulder mobility with manual treatment. Check for TrP to L UT/posterior scalenes, Supraspinatus and treat if needed. End with possibly EStim for pain management if needed, pt prefer not so use cryotherapy for pain management.
--- NOTE | 2020-06-13 12:19 | PT.OTN ---
Current Diagnoses Muscle weakness (generalized) (06/13/20) Strain of muscle(s) and tendon(s) of the rotator cuff of left shoulder, initial encounter (06/13/20) Physical Therapy Treatment Note PT-OP-A Visit Information Start: 03/18/20 18:29 Freq: Status: Active Protocol: Document 06/13/20 11:21 LRN (Rec: 06/13/20 12:17 LRN [id number]) Out-Patient Physical Therapy Visit Information Visit Information Visit Type Treatment Note Visit Start Time 11:21 Visit Stop Time 12:00 Total Visit Minutes 39 Visit Number 13 Evaluation Information Evaluation Date 03/20/20 Precautions Precautions Somewhat recent injury to the R shoulder. Scoliosis, Osteopenia, Thoracic compression fracture 12/2018. PT-OP-B Current Condition Start: 03/18/20 18:29 Freq: Status: Active Protocol: Document 06/06/20 11:22 LRN (Rec: 06/06/20 12:26 LRN [id number]) Current Condition History of Current Condition Onset Date 9 months ago Current Complaints L shoulder, decreased use History of Current Condition L handed. States she thinks she pulled a muscle in her arm . States she was helping someone put some wood in a trunk and felt something strain when she did it. She was already doing PT for her R shoulder that is now normal. She was at a wellness check when it was recommended that she have therapy for her L shoulder. 06/06/20: Pt attends therapy after a break. She states had a cortisone injection by Dr. Saleh, on 05/26/20, ~2 weeks ago and states her L shoulder is feeling better. Pain is 2- 3/10. No longer hurts just sitting. Prior Treatments and Tests R shoulder therapy after tripping over her dog and falling. Future Testing and Treatments Planned None Prior Functional Status Baseline Function- ADL's Independent Baseline Function- Mobility Independent Baseline Function- Other Slept on the L side at nighttime. Current Functional Impairments (Reported) Functional Limitations- ADL's NO difficulty cutting food with dominant L hand. Hurts putting arm out to don coat/tops on. Functional Limitations- Other Able to sleep on L side when positioned comfortably. Personal Factors Other Personal Factors That May Effect Son is at home assisting her, Therapy/Recovery Thoracic Compression fracture 12/2018, Osteopenia 03/2020. PT-OP-C Subjective Start: 03/18/20 18:29 Freq: Status: Active Protocol: Document 06/13/20 11:21 LRN (Rec: 06/13/20 12:17 LRN [id number]) OP-PT Subjective Patient Comments Patient Comments States she is having just a little when reaching up into her high cupboard. PT-OP-E Functional Tests Start: 03/18/20 18:29 Freq: Status: Active Protocol: Document 06/06/20 11:22 LRN (Rec: 06/06/20 12:26 LRN [id number]) Functional Tests Apley's Scratch Test Action 1- Left Top of scapula Action 1- Right Below Scapula ridge Action 2- Left T1 Action 2- Right T3 Action 3- Left T8 Action 3- Right T5 PT-OP-H Neuro Start: 03/18/20 18:29 Freq: Status: Active Protocol: Document 03/20/20 08:14 LRN (Rec: 03/21/20 14:18 LRN [id number]) Sensation Evaluation Gross Sensation Gross Sensation WNL Deep Tendon Reflex & Clonus Assessment Deep Tendon Reflex Bilateral Bicep Deep Tendon Reflex 2+ Normal PT-OP-J Posture/Palpation/Skin Start: 03/18/20 18:29 Freq: Status: Active Protocol: Document 03/20/20 08:14 LRN (Rec: 03/21/20 14:18 LRN [id number]) Posture Evaluation Position Standing L-Spine Posture Increased Lordosis Scapula Posture (L) Rotated Down Weight Distribution Weight Shifted Anterior Comments Posture Comments C-Curve of the thoracic spine with apex on the right. Protruding abdomen posture. L shoulder is low. PT-OP-K Range of Motion Start: 03/18/20 18:29 Freq: Status: Active Protocol: Document 06/13/20 11:21 LRN (Rec: 06/13/20 12:17 LRN [id number]) Shoulder Goniometric Range of Motion Shoulder Right Passive Testing Position Supine Flexion 158 Abduction 120 External Rotation at 90 degrees 70 Abduction Internal Rotation 60 Left Passive Shoulder ROM WFL No Testing Position Supine Flexion 158 Abduction 90 External Rotation at 90 degrees 90 Abduction Internal Rotation 80 Comments Scaption is 170 degs painfree Right Active Shoulder ROM WFL Yes Testing Position Sitting Flexion 150 Extension 55 Abduction 175 External Rotation at 0 degrees Abduction 70 Internal Rotation Behind Back (text) T7 Comments AB is painfree range Left Active Shoulder ROM WFL No Testing Position Sitting Flexion 140 Extension 30 Abduction 80 External Rotation at 0 degrees Abduction 65 Internal Rotation Behind Back (text) T7 Comments AB AROM 80 degs is at start of pain. Full AB AROM is 150 deg's with pain range 80-150 deg's. L shoulder AROM Abduction before therapy: 140 degs, after therapy: 144 degs. PT-OP-M Strength Start: 03/18/20 18:29 Freq: Status: Active Protocol: Document 05/06/20 10:32 LRN (Rec: 05/06/20 17:17 LRN [id number]) Shoulder Strength Shoulder Manual Muscle Testing Right Flexion 4+ Good+ Abduction (C5) 5 Normal External Rotation 3+ Fair+ Internal Rotation 3+ Fair+ Left Flexion 2+ Poor+ Abduction (C5) 2+ Poor+ External Rotation 4+ Good+ Internal Rotation 3 Fair PT-OP-Q Treatments Start: 03/18/20 18:29 Freq: Status: Active Protocol: Document 06/13/20 11:21 LRN (Rec: 06/13/20 12:17 LRN [id number]) Therapeutic Exercises Supine Exercises Shoulder AB Supine Exercise Name Shoulder AB stretch Side left Comments Phys cuing for scapula Shoulder flex Supine Exercise Name Shoulder flex stretch Side left Shoulder ER/IR Supine Exercise Name Shoulder ER/IR stretch active and passive Side left Comments Hands behind head Sidelying Exercises Shoulder AB Sidelying Exercise Name Shoulder AB, elbow flexed Side left Reps/Minutes 15x Comments Initial twitch of discomfort Shoulder IR Sidelying Exercise Name Shoulder IR strengthening Side left Reps/Minutes 15x 2 L shoulder ER Sidelying Exercise Name Shoulder ER strengthening Reps/Minutes 15 x 2 Sitting Exercises R SB stretch Sitting Exercise Name Stretch to L thoracic paraspinals. Reps/Minutes 2' Scapular ex Sitting Exercise Name Scapular pinch & scapular depression Side left Reps/Minutes 5 hold x 10 Comments Phys cuing to start Shoulder flex/table slide Sitting Exercise Name Shoulder flex/table slide Side left Reps/Minutes Hold 20, 10x Comments Cuing needed to keep painfree range, adjusted position x 2 Manual Therapy Treatment Soft Tissue Mobilization L Supraspinatus Body Location L Supraspinatus Mobilization Type Trigger Point Release Intensity/Depth Moderate Body Position Sitting Self-Care/Home Management Treatment Education Patient Education Home Exercise Program Activities Self-Care/Home Management Activities Verbal instructions: Pt to do sidelie active shoulder ER/IR /elbow flexed AB, sitting trunk R. SB with L arm overhead; Scapular pinches. PT-OP-R Modalities Start: 03/18/20 18:29 Freq: Status: Active Protocol: Document 04/18/20 12:45 LRN (Rec: 04/18/20 13:32 LRN [id number]) Hot Pack/Cold Pack Treatment Cold Pack Location L shoulder Patient Position Supine Treatment Duration (minutes) 10 Patient Tolerance Good PT-OP-T Assessment and Plan Start: 03/18/20 18:29 Freq: Status: Active Protocol: Document 06/13/20 11:21 LRN (Rec: 06/13/20 12:17 LRN [id number]) Physical Therapy Assessment Goals Five Impairment Pt not able to sleep at prior level (usually sleeps on L side). Short Term Goal (STG) Pt will be educate in various positions for sidelie sleeping to alleviate L shoulder pain during the night. STG Duration 03/24/20 (04/29/20: MET GOAL) Nursing Home Goal (LTG) Pt will be able to sleep comfortably on the dominant L side. LTG Duration 05/19/20 (04/29/20: MET GOAL) Four Impairment Decreased L shoulder ROM (PROM degs in sup: flex 144, AB 90, ER 42, IR 62) Short Term Goal (STG) Improve L shoulder PROM to normal (R shoulder in sup in degs: flex 150, AB 180, ER 62, IR 80). (06/06/20: L shoulder AROM SITTING: flex 145, AB 95, ER 68, IR to T8) STG Duration 06/19/20 (06/06/20: Improved) Nursing Home Goal (LTG) Pt will be able to reach up to the 1st shelf from the bottom without pain. LTG Duration 07/05/20 (06/06/20: Sometime there is pain) Three Impairment Pain with functional use L UE cutting food to eat. Short Term Goal (STG) Improve L shoulder strength to no less than 3+/5 within available range (05/06/20: L shoulder: flex 2+ /5, AB no change, ER 4+/5, IR no change. Initial evaluation strength: flex 3-/5, AB 2+/5, ER 3+/5, IR 3+/5). STG Duration 06/19/20 Nursing Home Goal (LTG) Pt will be able to cut food without pain using her L UE. LTG Duration 05/19/20 (04/18/20: MET GOAL) Two Impairment Decreased L shoulder AROM limiting dressing ability. Short Term Goal (STG) Painfree with L shoulder AROM (Initial in sitting in deg's: flex 137, AB 70, IR to T9, ER to T1). (06/06/20: L shoulder AROM SITTING: flex 145, AB 95, ER 68 degs/T1, IR to T8) STG Duration 06/19/20 (05/06/20: NOT MET) Nursing Home Goal (LTG) Pt will be able to put on tops without L shoulder pain. LTG Duration 07/05/20 (06/06/20: NOT MET) One Impairment Pt lacks an appropriate self care HEP. Nursing Home Goal (LTG) Pt will be independent with a self care HEP. LTG Duration 07/05/20 (04/11/20: MET GOAL for current condition) Progress Towards Goals Progress Comments L shoulder AROM improved from shoulder flex 140 to 144 degs and AB painfree AROM improved from 80 to 140 degs after therapy. Assessment Summary Assessment Palpable C-Curve of spine with apex on right. L shoulder AROM is mildly less than last visit to start with AB; although pt notes L shoulder improvement with less pain. She is not able to reach up high due to subacromial pain. Pt L shoulder mobility is limited by pain with flex, AB pain eliminated after exercises, but ER/IR appear WNL. She is having trouble performing scapular stabizing (Scap depression/protraction) movements in supine, good sitting. Physical Therapy Plan Frequency and Duration Frequency of Treatment 1x/Week Plan of Care Start Date 05/06/20 Plan of Care End Date 07/05/20 Next Visit Focus/Plan Next Note Type Treatment Note Next Visit Plan Progress slowly on home program, strengthening of scap stabilizers and carefully rotator cuff muscles ( following recent cortisone injection). Increase L shoulder mobility with manual treatment. TrP to L UT/ posterior scalenes, Supraspinatus and treat if needed. End with possibly EStim for pain management if needed, pt prefer not so use cryotherapy for pain management.
--- NOTE | 2020-06-19 14:09 | PT.OTN ---
Current Diagnoses Muscle weakness (generalized) (06/19/20) Strain of muscle(s) and tendon(s) of the rotator cuff of left shoulder, initial encounter (06/19/20) Physical Therapy Treatment Note PT-OP-A Visit Information Start: 03/18/20 18:29 Freq: Status: Active Protocol: Document 06/19/20 10:35 LRN (Rec: 06/19/20 11:20 LRN [id number]) Out-Patient Physical Therapy Visit Information Visit Information Visit Type Treatment Note Visit Start Time 10:35 Visit Stop Time 11:17 Total Visit Minutes 42 Visit Number 14 Evaluation Information Evaluation Date 03/20/20 Precautions Precautions Somewhat recent injury to the R shoulder. Scoliosis, Osteopenia, Thoracic compression fracture 12/2018. PT-OP-B Current Condition Start: 03/18/20 18:29 Freq: Status: Active Protocol: Document 06/06/20 11:22 LRN (Rec: 06/06/20 12:26 LRN [id number]) Current Condition History of Current Condition Onset Date 9 months ago Current Complaints L shoulder, decreased use History of Current Condition L handed. States she thinks she pulled a muscle in her arm . States she was helping someone put some wood in a trunk and felt something strain when she did it. She was already doing PT for her R shoulder that is now normal. She was at a wellness check when it was recommended that she have therapy for her L shoulder. 06/06/20: Pt attends therapy after a break. She states had a cortisone injection by Dr. Saleh, on 05/26/20, ~2 weeks ago and states her L shoulder is feeling better. Pain is 2- 3/10. No longer hurts just sitting. Prior Treatments and Tests R shoulder therapy after tripping over her dog and falling. Future Testing and Treatments Planned None Prior Functional Status Baseline Function- ADL's Independent Baseline Function- Mobility Independent Baseline Function- Other Slept on the L side at nighttime. Current Functional Impairments (Reported) Functional Limitations- ADL's NO difficulty cutting food with dominant L hand. Hurts putting arm out to don coat/tops on. Functional Limitations- Other Able to sleep on L side when positioned comfortably. Personal Factors Other Personal Factors That May Effect Son is at home assisting her, Therapy/Recovery Thoracic Compression fracture 12/2018, Osteopenia 03/2020. PT-OP-C Subjective Start: 03/18/20 18:29 Freq: Status: Active Protocol: Document 06/19/20 10:35 LRN (Rec: 06/19/20 11:20 LRN [id number]) OP-PT Subjective Patient Comments Patient Comments States some of the exercises don't hurt the R shoulder like they did. Thinks she can reach up higher. Feels her mobility is improving. When she puts her deodorant on she can lift her R arm higher (in AB) PT-OP-E Functional Tests Start: 03/18/20 18:29 Freq: Status: Active Protocol: Document 06/06/20 11:22 LRN (Rec: 06/06/20 12:26 LRN [id number]) Functional Tests Apley's Scratch Test Action 1- Left Top of scapula Action 1- Right Below Scapula ridge Action 2- Left T1 Action 2- Right T3 Action 3- Left T8 Action 3- Right T5 PT-OP-H Neuro Start: 03/18/20 18:29 Freq: Status: Active Protocol: Document 03/20/20 08:14 LRN (Rec: 03/21/20 14:18 LRN [id number]) Sensation Evaluation Gross Sensation Gross Sensation WNL Deep Tendon Reflex & Clonus Assessment Deep Tendon Reflex Bilateral Bicep Deep Tendon Reflex 2+ Normal PT-OP-J Posture/Palpation/Skin Start: 03/18/20 18:29 Freq: Status: Active Protocol: Document 03/20/20 08:14 LRN (Rec: 03/21/20 14:18 LRN [id number]) Posture Evaluation Position Standing L-Spine Posture Increased Lordosis Scapula Posture (L) Rotated Down Weight Distribution Weight Shifted Anterior Comments Posture Comments C-Curve of the thoracic spine with apex on the right. Protruding abdomen posture. L shoulder is low. PT-OP-K Range of Motion Start: 03/18/20 18:29 Freq: Status: Active Protocol: Document 06/19/20 10:35 LRN (Rec: 06/19/20 11:20 LRN [id number]) Shoulder Goniometric Range of Motion Shoulder Right Passive Shoulder ROM WFL Yes Testing Position Supine Flexion 158 Abduction 180 External Rotation at 90 degrees 75 Abduction Internal Rotation 80 Comments AB is in the Scapular Plane. Left Passive Shoulder ROM WFL Yes Testing Position Supine Flexion 158 Abduction 180 External Rotation at 90 degrees 80 Abduction Internal Rotation 70 Comments AB is in the Scapular Plane. Right Active Shoulder ROM WFL Yes Testing Position Sitting Flexion 140 Extension 40 Abduction 145 Internal Rotation Behind Back (text) T7 Comments T1 Behind head Left Active Shoulder ROM WFL No Testing Position Sitting Flexion 140 Extension 40 Abduction 145 Internal Rotation Behind Back (text) T7 Comments T1 Behind head PT-OP-M Strength Start: 03/18/20 18:29 Freq: Status: Active Protocol: Document 05/06/20 10:32 LRN (Rec: 05/06/20 17:17 LRN [id number]) Shoulder Strength Shoulder Manual Muscle Testing Right Flexion 4+ Good+ Abduction (C5) 5 Normal External Rotation 3+ Fair+ Internal Rotation 3+ Fair+ Left Flexion 2+ Poor+ Abduction (C5) 2+ Poor+ External Rotation 4+ Good+ Internal Rotation 3 Fair PT-OP-Q Treatments Start: 03/18/20 18:29 Freq: Status: Active Protocol: Document 06/19/20 10:35 LRN (Rec: 06/19/20 11:20 LRN [id number]) Therapeutic Exercises Sidelying Exercises Shoulder AB Sidelying Exercise Name Shoulder AB, elbow flexed Side left Reps/Minutes 15x Shoulder IR Sidelying Exercise Name Shoulder IR strengthening Side left Reps/Minutes 15x 2 L shoulder ER Sidelying Exercise Name Shoulder ER strengthening Resistance 0#, 1# Reps/Minutes 15x, Sitting Exercises PNF Sitting Exercise Name Removing shirt motion Side bilateral Reps/Minutes 3' R SB stretch Sitting Exercise Name Stretch to L thoracic paraspinals. Reps/Minutes 2' Windshield wipe @ 0 deg's AB Sitting Exercise Name L Windshield wipe Side bilateral Reps/Minutes 15x Scapular ex Sitting Exercise Name Scapular pinch & scapular depression Side left Reps/Minutes 5 hold x 10 Comments Phys cuing to start Shoulder flex/table slide Sitting Exercise Name Shoulder flex rolling fwd on Lg Gr T-Ball Side left Equipment Used Lg Gr T-Ball Reps/Minutes Hold 20, 10x Comments Cuing needed to keep painfree range, adjusted position x 2 Standing Exercises Shoulder Ext Standing Exercise Name Shoulder Ext - AROM Side bilateral Reps/Minutes 8x Comments ROM taken Shoulder AB Standing Exercise Name Shoulder AB Side bilateral Reps/Minutes 10x Comments ROM taken Shoulder rotation Standing Exercise Name Shoulder ER/IR Side bilateral Comments ROM taken bilaterally Shoulder flex Standing Exercise Name Alternate arm lifts Side bilateral Reps/Minutes 15x Comments ROM taken bilaterally PT-OP-R Modalities Start: 03/18/20 18:29 Freq: Status: Active Protocol: Document 04/18/20 12:45 LRN (Rec: 04/18/20 13:32 LRN [id number]) Hot Pack/Cold Pack Treatment Cold Pack Location L shoulder Patient Position Supine Treatment Duration (minutes) 10 Patient Tolerance Good PT-OP-T Assessment and Plan Start: 03/18/20 18:29 Freq: Status: Active Protocol: Document 06/19/20 10:35 LRN (Rec: 06/19/20 11:20 LRN [id number]) Physical Therapy Assessment Goals Five Impairment Pt not able to sleep at prior level (usually sleeps on L side). Short Term Goal (STG) Pt will be educate in various positions for sidelie sleeping to alleviate L shoulder pain during the night. STG Duration 03/24/20 (04/29/20: MET GOAL) Screed Person Goal (LTG) Pt will be able to sleep comfortably on the dominant L side. LTG Duration 05/19/20 (04/29/20: MET GOAL) Four Impairment Decreased L shoulder ROM (PROM degs in sup: flex 144, AB 90, ER 42, IR 62) Short Term Goal (STG) Improve L shoulder PROM to normal (R shoulder in sup in degs: flex 150, AB 180, ER 62, IR 80). (06/19/20: L shoulder ROM, supine: flex 158, AB 180, ER 80, IR 70 and behind back to T7) STG Duration 06/19/20 (06/19/20: Normal except IR) Screed Person Goal (LTG) Pt will be able to reach up to the 1st shelf from the bottom without pain. LTG Duration 07/05/20 (06/06/20: Sometime there is pain) Three Impairment Pain with functional use L UE cutting food to eat. Short Term Goal (STG) Improve L shoulder strength to no less than 3+/5 within available range (05/06/20: L shoulder: flex 2+ /5, AB no change, ER 4+/5, IR no change. Initial evaluation strength: flex 3-/5, AB 2+/5, ER 3+/5, IR 3+/5). STG Duration 06/19/20 (06/19/20: strength improving as noted w/ increased ex tolerance) Screed Person Goal (LTG) Pt will be able to cut food without pain using her L UE. LTG Duration 05/19/20 (04/18/20: MET GOAL) Two Impairment Decreased L shoulder AROM limiting dressing ability. Short Term Goal (STG) Painfree with L shoulder AROM (Initial in sitting in deg's: flex 137, AB 70, IR to T9, ER to T1). (06/19/20: L shoulder AROM SITTING: flex 145, AB 145, IR to T7, ER T1) STG Duration 06/19/20 (05/06/20: MET except ER behind head is same) Mcc Goal (LTG) Pt will be able to put on tops without L shoulder pain. LTG Duration 07/05/20 (06/06/20: NOT MET) One Impairment Pt lacks an appropriate self care HEP. Screed Person Goal (LTG) Pt will be independent with a self care HEP. LTG Duration 07/05/20 (04/11/20: MET GOAL for current condition) Progress Towards Goals Progress Towards Goals Slow Progress due to Medical Issues,Slow Progress - Other Progress Comments L shoulder painfree PROM and sitting AROM much improved ( movement in scapular plane), except with L shoulder passive (supine) IR and active ( sitting) ER of reaching behind head. Pt is able to lift and move her L arm with less pain noted (example can put deodorant on with greater ease ). Assessment Summary Assessment Much improved painfree L shoulder mobility (see progress comments above). Pt is ready to start slow progression of strength following her cortisone injection 05/26/20. Physical Therapy Plan Frequency and Duration Frequency of Treatment 1x/Week Plan of Care Start Date 05/06/20 Plan of Care End Date 07/05/20 Next Visit Focus/Plan Next Note Type Treatment Note Next Visit Plan Pt f/u with Dr. Saleh . Progress strengthening of scap stabilizers and carefully with rotator cuff muscles (following recent cortisone injection). Increase L shoulder (passive IR, active ER) mobility. TrP to L UT/posterior scalenes as needed for pain management. End with possibly EStim for pain management if needed, pt prefer not so use cryotherapy for pain management.
== END 2020-07-11 10:55 | disposition home or self-care (01) ==
LOC: PHYS 09:00
PROVIDERS: PCP Family Medicine; Referring Provider Family Medicine; Visit Provider Family Medicine
DX: S46.012A Strain of muscle(s) and tendon(s) of the rotator cuff of left shoulder, initial encounter (principal); M62.81 Muscle weakness (generalized)
CPT/HCPCS: 97110; 97140; 97162; 97535

== ENCOUNTER → 2020-11-25 12:28 | Outpatient (CLI) | payer MEDICARE, SELFPAY ==
--- NOTE | 2020-11-25 12:30 | DI.US.S_ITS ---
ULTRASOUND OF LEFT BREAST: 11/25/2020 CLINICAL: Patient returns today to evaluate a focal asymmetry in the left breast. Comparison is made to exams dated: 11/25/2020 mammogram, 05/26/2020 mammogram, 05/27/2020 ultrasound, 04/28/2020 mammogram, 04/24/2019 mammogram, and 04/12/2018 mammogram - [facility]. Color flow and Doppler ultrasound of the left breast were performed. Mckinnon scale images of the real-time examination were reviewed. No solid or cystic mass is identified by ultrasound. IMPRESSION: BENIGN There is no mammographic or sonographic evidence of malignancy. Previously described asymmetry is resolved on mammogram and previously seen calcifications are stable. Return to annual mammogram screening schedule is recommended. This exam was interpreted at Station ID: [id number]. Electronically Signed By: Swapnil Sheriff acr/:11/25/2020 14:39:40 letter sent: Normal Exam Ultrasound BI-RADS: 2 Benign
--- NOTE | 2020-11-25 12:30 | DI.MG.S_ITS ---
UNILATERAL LEFT DIGITAL DIAGNOSTIC MAMMOGRAM 3D/2D SHORT-TERM FOLLOW-UP: 11/25/2020 CLINICAL: Short follow up. Family history of breast cancer. Comparison is made to exams dated: 05/26/2020 mammogram, 04/28/2020 mammogram, and 04/24/2019 mammogram - [facility]. There are scattered fibroglandular elements in left breast. There are 0.3 cm grouped fine dystrophic punctate calcifications in the left breast at 4 o'clock middle depth. These are seen in additional views. The benign oval equal density asymmetry in the left breast at 2 o'clock middle depth is no longer seen. No other significant masses or calcifications are seen in the breast. IMPRESSION: INCOMPLETE: NEEDS ADDITIONAL IMAGING EVALUATION The 0.3 cm grouped fine dystrophic punctate calcifications in the left breast at 4 o'clock middle depth are indeterminate. The previously described asymmetry is no longer seen. An ultrasound is recommended and will be performed and dictated separately today. This exam was interpreted at Station ID: [id number]. NOTE: For mammograms, a report in lay terms will be sent to the patient. Approximately 15% of breast malignancies will not be visualized mammographically. In the management of a palpable breast mass, a negative mammogram must not discourage biopsy of a clinically suspicious lesion. Electronically Signed By: Swapnil Sheriff acr/:11/25/2020 14:35:56 letter sent: Need Ultrasound ACR BI-RADS Category 0: Incomplete [id number]
== END ==
PROVIDERS: PCP Family Medicine; Referring Provider Family Medicine; Visit Provider Family Medicine
DX: R92.1 Mammographic calcification found on diagnostic imaging of breast (principal); R92.8 Other abnormal and inconclusive findings on diagnostic imaging of breast
CPT/HCPCS: 76642; 77065; G0279

== ENCOUNTER → 2020-12-10 08:51 | Outpatient (CLI) | payer MEDICARE, SELFPAY ==
[2020-12-10 10:09] LABS: Hemoglobin A1C% w Est Avg Glu 6.2 % (4.0-6.0)
[2020-12-10 10:40] LABS: Alanine Aminotransferase 40 IU/L (<35); Albumin Globulin Ratio 1.2 (1.0-2.8); Alkaline Phosphatase 125 U/L (38-126); Aspartate Aminotransferase 69 IU/L (14-36); BUN Creatinine Ratio 23.1 (6-22); Bilirubin Total 0.8 mg/dL (0.2-1.3); Blood Urea Nitrogen 15 mg/dL (7-17); Calcium 9.5 mg/dL (8.4-10.2); Carbon Dioxide 26 mmol/L (22-32); Chloride 106 mmol/L (98-107); Cholesterol 175 mg/dL (140-199); Estimated Glomerular Filt Rate > 60.0 mL/min (>60); Globulin 3.3 g/dL (1.7-4.1); Glucose 144 mg/dL (80-110); HDL Cholesterol 71 mg/dL (40-60); HEMOLYSIS < 15 (0-50); LDL Cholesterol Calculated 82 mg/dL (<100); Potassium 4.1 mmol/L (3.4-5.1); Sodium 139 mmol/L (137-145); Total Protein 7.3 g/dL (6.3-8.2); Triglycerides 108 mg/dL (35-150)
== END ==
PROVIDERS: PCP Family Medicine; Referring Provider Family Medicine; Visit Provider Family Medicine
DX: E11.9 Type 2 diabetes mellitus without complications (principal); E78.2 Mixed hyperlipidemia; I10 Essential (primary) hypertension
CPT/HCPCS: 36415; 80053; 80061; 83036

== ENCOUNTER → 2020-12-11 11:25 | Outpatient (CLI) | payer MEDICARE, SELFPAY | PROVIDERS: PCP Family Medicine; Referring Provider Family Medicine; Visit Provider Family Medicine | DX: Z78.0 Asymptomatic menopausal state (principal); M85.852 Other specified disorders of bone density and structure, left thigh | CPT/HCPCS: 77080 ==

== ENCOUNTER → 2021-04-30 10:50 | Outpatient (CLI) | payer MEDICARE, SELFPAY ==
--- NOTE | 2021-04-30 | DI.MG.S_ITS ---
BILATERAL DIGITAL SCREENING MAMMOGRAM 3D/2D WITH CAD: 04/30/2021 CLINICAL: Routine screening. Family history of breast cancer. Comparison is made to exams dated: 11/25/2020 mammogram, 05/26/2020 mammogram, 04/28/2020 mammogram, and 04/24/2019 mammogram - [facility]. There are scattered fibroglandular elements in both breasts. Current study was also evaluated with a Computer Aided Detection (CAD) system. There is a new 10 cm x 15 cm irregular asymmetry in the left breast at 1 o'clock posterior depth. There also is a stable benign asymmetry in the left breast at 6 o'clock anterior depth. No other significant masses, calcifications, or other findings are seen in either breast. IMPRESSION: INCOMPLETE: NEEDS ADDITIONAL IMAGING EVALUATION The new 10 cm x 15 cm irregular asymmetry in the left breast at 1 o'clock posterior depth is indeterminate. Additional views with possible ultrasound are recommended. This exam was interpreted at Station ID: [id number]. NOTE: For mammograms, a report in lay terms will be sent to the patient. Approximately 15% of breast malignancies will not be visualized mammographically. In the management of a palpable breast mass, a negative mammogram must not discourage biopsy of a clinically suspicious lesion. Electronically Signed By: Swapnil Sheriff acr/:04/30/2021 12:27:35 letter sent: Additional Imaging Needed ACR BI-RADS Category 0: Incomplete [id number]
== END ==
PROVIDERS: PCP Family Medicine; Referring Provider Family Medicine; Visit Provider Family Medicine
DX: Z12.31 Encounter for screening mammogram for malignant neoplasm of breast (principal)
CPT/HCPCS: 77063; 77067

== ENCOUNTER → 2021-06-02 13:21 | Outpatient (CLI) | payer MEDICARE, SELFPAY ==
--- NOTE | 2021-06-02 | DI.MG.S_ITS ---
UNILATERAL LEFT DIGITAL DIAGNOSTIC MAMMOGRAM 3D/2D WITH ADDITIONAL VIEWS: 06/02/2021 CLINICAL: Additional evaluation requested from prior study. Comparison is made to exams dated: 04/30/2021 mammogram, 11/25/2020 mammogram, 05/26/2020 mammogram, 04/28/2020 mammogram, 04/24/2019 mammogram, and 04/12/2018 mammogram - [facility]. There are scattered fibroglandular elements in left breast. There is a new 1.7 cm irregular equal density focal asymmetry with an indistinct and microlobulated margin in the left breast at 1 o'clock posterior depth. This is seen in additional views. No other significant masses or calcifications are seen in the breast. IMPRESSION: INCOMPLETE: NEEDS ADDITIONAL IMAGING EVALUATION The new 1.7 cm irregular equal density focal asymmetry in the left breast is indeterminate. An ultrasound is recommended. This exam was interpreted at Station ID: [id number]. NOTE: For mammograms, a report in lay terms will be sent to the patient. Approximately 15% of breast malignancies will not be visualized mammographically. In the management of a palpable breast mass, a negative mammogram must not discourage biopsy of a clinically suspicious lesion. Electronically Signed By: Oswaldo piedra/garrett:06/02/2021 14:29:53 ACR BI-RADS Category 0: Incomplete [id number]
--- NOTE | 2021-06-02 13:23 | DI.US.S_ITS ---
LIMITED ULTRASOUND OF LEFT BREAST AND AXILLA: 06/02/2021 CLINICAL: Patient returns today to evaluate a focal asymmetry in the left breast. Comparison is made to exams dated: 06/02/2021 mammogram, 04/30/2021 mammogram, 11/25/2020 ultrasound, 11/25/2020 mammogram, 05/26/2020 mammogram, and 04/28/2020 mammogram - [facility]. Color flow ultrasound of the left breast 1 o'clock, and axilla regions was performed. Mckinnon scale images of the real-time examination were reviewed. There is a new 1.8 cm x 1 cm x 1.6 cm irregular mass with an indistinct margin in the left breast at 1 o'clock posterior depth 9 cm from the nipple. This irregular mass is hypoechoic and heterogeneously echogenic. This correlates with mammography findings. Color flow imaging demonstrates that there is vascularity present. No significant abnormalities were seen sonographically in the left axilla. IMPRESSION: HIGHLY SUGGESTIVE OF MALIGNANCY The new 1.8 cm x 1 cm x 1.6 cm irregular mass in the left breast is highly suggestive of malignancy. An ultrasound guided biopsy is recommended. The findings and recommendations were discussed with the patient by the onsite radiologist, Dr. Almazan, at the time of the exam. This exam was interpreted at Station ID: [id number]. Electronically Signed By: Oswaldo piedra/garrett:06/02/2021 14:33:33 letter sent: Biopsy Required Ultrasound BI-RADS: 5 Highly suggestive of malignancy
== END ==
PROVIDERS: PCP Family Medicine; Referring Provider Family Medicine; Visit Provider Family Medicine
DX: R92.8 Other abnormal and inconclusive findings on diagnostic imaging of breast (principal); N63.21 Unspecified lump in the left breast, upper outer quadrant
CPT/HCPCS: 76642; 77065; G0279

== ENCOUNTER → 2021-06-29 13:07 | Outpatient (CLI) | payer MEDICARE, SELFPAY ==
--- NOTE | 2021-06-29 | PATH_ITS ---
[facility] Accession Number: [id number] . 01 Material submitted: . breast - LEFT BREAST MASS 1:00 9CMFN . 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 Specimen laterality: Left. . Tumor site: Upper outer quadrant. Specify clock position: 1 o'clock. Specify distance from nipple in centimeters: 9 cm from nipple. Histologic type: Invasive carcinoma of no special type (ductal differentiation by e-cadherin immunostain). Histologic grade: High grade Glandular differentiation: Score 3/3. Nuclear pleomorphism: Score 2/3. Mitotic Rate: Score 3/3. Overall grade: Grade 3 (score 8/9). Tumor size: 10 mm in one core. Ductal carcinoma in situ: Not identified. Lymphovascular invasion: Suspicious focus present. Microcalcifications: Present in invasive carcinoma. Special studies: See microscopic description. [facility] 07/02/2021 1715 Local . 02 Comment: As part of routine quality control projectionist, Dr. Whitley also reviewed this case and agrees with the diagnosis. . Results discussed with Dr. Clifford on 06/30/2021 at approximately 3:30 p.m. . 02 Electronically signed: . Yamini Gauthier MD, Pathologist NPI- [id number] . 01 Gross description: . Received one formalin-filled container, labeled with the patient's name and designated left breast mass 1 o'clock 9 cm FN. The specimen is received with a plastic filter in container, sample loose in container and consists of two fragments of coelho-cabrera tissue and clotted blood which range in size from 1.0 x 0.2 x 0.2 cm to 1.3 x 0.3 x 0.2 cm. All fragments are totally submitted in one cassette. Possible collection date and time per requisition: 06/29/21 at 1418. Total fixation time: Approximately 13 hours. ([id number]) /FRR 06/30/2021 0359 Local . 02 Microscopic: . Immunohistochemistry stains are performed to further evaluate the cells of interest. The control stains show appropriate reactivity. . RESULTS: E-cadherin: Positive, consistent with ductal differentiation. CHARLEY-3: Positive, consistent with breast primary tumor. . . CAP BREAST BIOMARKER REPORTING: . Estrogen Receptor (ER) Status: Negative, less than 1% of tumor nuclei. Primary antibody: SP1 Internal controls positive. Progesterone Receptor (PgR) Status: Negative, less than 1% of tumor nuclei. Primary antibody: 1E2 Internal controls positive. HER2 (by immunohistochemistry): Negative at 0+ Primary antibody: 4B5 Internal control positive. . Cold Ischemia and Fixation Times: Meets requirements in the latest version of the ASCO/CAP guidelines. Testing performed on Block Number: A1. . TECHNICAL NOTE: The scoring criteria for breast biomarkers by immunohistochemistry is based on the current ASCO/CAP guidelines (Maribell et al, Arch Pathol Lab Med 2010: 134(6): 907-922 / Malcolm ZUÑIGA et al, Arch Pathol Lab Med 2014: 138(2): 241-256). Deparaffinized sections of formalin fixed tissue (along with appropriate positive controls) are incubated with the above antibody(s). Using the automated [employer] stainer, tissue is incubated with the designated antibody* which is then localized by a non-biotin, dual polymer detection system. The external controls are reviewed for appropriate reactivity and found to be adequate. Results on the target cell population are indicated above. These tests have not been validated on decalcified tissue. * This test was developed and its performance characteristics determined by [employer]. It has not been cleared or approved by the U.S. Food and Drug Administration. The FDA has determined that such clearance or approval is not necessary. This test is used for clinical purposes. It should not be regarded as investigational or for research. . 02 Pathologist provided ICD-10: C50.912 . 02 CPT . 605462, 221953, 431411, 288362, I41691, E29456 Performed at: 01 [facility] Located within [facility] [address] [place] [address], [place], [place] [id number] MD Sagar Sparks MD Phone: [phone] Performed at: [address] [facility] [address] [place], [place] [id number] MD Seema Whitley MD Phone: [phone]
--- NOTE | 2021-06-29 | DI.MG.S_ITS ---
UNILATERAL LEFT DIGITAL DIAGNOSTIC MAMMOGRAM 3D/2D POST-EXCISIONAL BIOPSY: 06/29/2021 CLINICAL: Post clip. Comparison is made to exams dated: 06/02/2021 ultrasound, 06/02/2021 mammogram, and 04/30/2021 mammogram - [facility]. There are scattered fibroglandular elements in left breast. There is a marker clip in the appropriate position in the left breast at 1 o'clock middle depth. This marker clip placement is at the biopsy site. IMPRESSION: POST PROCEDURE MAMMOGRAM FOR MARKER PLACEMENT There was a successful marker clip placement in the left breast middle depth. This exam was interpreted at Station ID: [id number]. NOTE: For mammograms, a report in lay terms will be sent to the patient. Approximately 15% of breast malignancies will not be visualized mammographically. In the management of a palpable breast mass, a negative mammogram must not discourage biopsy of a clinically suspicious lesion. Electronically Signed By: Radha Arguello M.D. [facility]/:06/29/2021 14:38:54 ACR BI-RADS Category Post-procedure mammogram for marker placement
--- NOTE | 2021-06-29 13:09 | DI.US.S_ITS ---
PROCEDURE: US BX BREAST PERC W VAC DEVICE COMPARISON: None. INDICATIONS: LEFT BREAST MASS FINDINGS: IMPRESSION: Dictated by: Radha Arguello MD, PhD on 06/29/2021 at 16:29 Approved by: Radha Arguello MD, PhD on 06/29/2021 at 16:29
--- NOTE | 2021-06-29 13:28 | DI.US.S_ITS ---
Procedure: US bx breast perc w vac device ULTRASOUND GUIDED BIOPSY LEFT BREAST USING VACUUM DEVICE WITH MARKING DEVICE INSERTED AND POST DIGITAL MAMMOGRAPHIC IMAGIN06/29/2021 CLINICAL: Left breast mass. PATIENT CONSENT: Risks (minor bleeding, infection, vasovagal reaction and repeat procedure), benefits and alternatives were explained to the patient and written informed consent was obtained. Correlation is made to exams dated: 06/02/2021 ultrasound, 06/02/2021 mammogram, 04/30/2021 mammogram, and 11/25/2020 [facility]. An ultrasound guided biopsy using real-time ultrasound was performed for the indistinct irregular shaped mass located in the left breast at 1 o'clock middle depth. The skin was prepped in the usual manner. Local anesthetic was administered to the access site. A skin crystal was made in the breast. The abnormality was approached from the lateral aspect. A 13 gauge biopsy needle was placed adjacent to the abnormality under ultrasound guidance. Once the needle was documented to be in the correct location, three specimens were obtained using the Mammotome biopsy system. A Vision Biopsy Clip was inserted into the biopsy cavity. Post procedure digital mammographic imaging demonstrates the location device at the targeted area. The specimens were sent to the laboratory for pathological analysis. IMPRESSION: ULTRASOUND GUIDED BIOPSY MALIGNANT Ultrasound guided biopsy of the mass in the left breast at 1 o'clock middle depth was successful. Pathology indicates malignant invasive ductal carcinoma (ID). Pathology results are concordant with imaging findings. A surgical/oncologic consultation is recommended. Results and recommendations will be communicated to the ordering provider's office. This exam was interpreted at Station ID: [id number]. Continued Report - Page 2 of 2 Patient Name: VANCE ROBERTS date: 1940 Sex: F Attending Physician: Darrin Indications: Date: 06/29/2021 14:19 At the request of: CON GRANADOS Procedure: US bx breast perc w vac device Radha Dias M.D. [facility]/:07/03/2021 12:10:18
== END ==
PROVIDERS: PCP Family Medicine; Referring Provider Family Medicine; Visit Provider Family Medicine
DX: C50.412 Malignant neoplasm of upper-outer quadrant of left female breast (principal); Z17.1 Estrogen receptor negative status [ER-]
CPT/HCPCS: 19083; 77065

== ENCOUNTER 2021-07-11 15:42 | Emergency (ER) | payer MEDICARE, SELFPAY ==
[2021-07-11 15:48] VITALS: BP 151/71; PULSE 96; RESP 18; TEMP 37.5; O2SAT 96; BMI 29.8
[2021-07-11 16:18] LABS: Add Manual Diff / Slide Review NO; Basophils Absolute Auto 0 /uL (0-100); Basophils Percent Auto 0.4 % (0-2); Eosinophils Absolute Auto 100 /uL (0-450); Eosinophils Percent Auto 1.4 % (2-4); Hematocrit 38.4 % (36-46); Hemoglobin 12.8 g/dL (12.0-16.0); Lymphocytes Absolute Auto 900 /uL (1100-4500); Lymphocytes Percent Auto 12.2 % (25-40); Mean Corpuscular HGB Conc 33.2 % (30-36); Mean Corpuscular Hemoglobin 31.9 PG (26-34); Mean Corpuscular Volume 95.9 fL (80-100); Monocytes Absolute Auto 600 /uL (0-900); Monocytes Percent Auto 8.3 % (3-14); Neutrophils Absolute Auto 6000 /uL (1500-7000); Neutrophils Percent Auto 77.7 % (50-75); Platelet Count 106 X10^3/uL (150-400); Red Cell Distribution Width 13.7 % (11.6-14.8); White Blood Cell Count 7.7 X10^3/uL (4.5-11.0)
[2021-07-11 16:24] LABS: Alanine Aminotransferase 33 IU/L (<35); Albumin 4.3 g/dL (3.5-5.0); Albumin Globulin Ratio 1.3 (1.0-2.8); Alkaline Phosphatase 115 U/L (38-126); Aspartate Aminotransferase 55 IU/L (14-36); BUN Creatinine Ratio 22.9 (6-22); Bilirubin Total 0.9 mg/dL (0.2-1.3); Blood Urea Nitrogen 16 mg/dL (7-17); Calcium 9.8 mg/dL (8.4-10.2); Carbon Dioxide 26 mmol/L (22-32); Chloride 102 mmol/L (98-107); Estimated Glomerular Filt Rate > 60.0 mL/min (>60); Globulin 3.4 g/dL (1.7-4.1); Glucose 140 mg/dL (80-110); HEMOLYSIS 17 (0-50); Lipase 81 U/L (23-300); Potassium 3.9 mmol/L (3.4-5.1); Sodium 136 mmol/L (137-145); Total Protein 7.7 g/dL (6.3-8.2)
[2021-07-11 16:44] LABS: Bacteria Urine Few (2-10); RBC Urine None Seen (0-5/HPF); Transitional Epi Cells Urine 1-5/HPF (0-5/HPF); WBC Urine 5-10/HPF (0-5/HPF)
[2021-07-11 17:31] VITALS: BP 138/62; PULSE 83; RESP 18; O2SAT 98
--- NOTE | 2021-07-11 18:04 | ED.GENADULT ---
HPI - General Adult General Chief complaint: Abdominal Pain Stated complaint: fever, stomach pain, thinks bladder infection Time Seen by Provider: 07/11/21 18:04 Source: patient and family Mode of arrival: Ambulatory History of Present Illness HPI narrative: 80-year-old woman with history hypertension, hyperlipidemia, osteoporosis who was diagnosed with breast cancer earlier this month reports to the emergency department complaining of intermittent fevers and low abdominal pain for 2 days. She describes no dysuria no vaginal discharge no vomiting no diarrhea no blood in her stool. She is not having chest pain or palpitations. Describes no headaches. Related Data Home Medications Medication Instructions Recorded Confirmed ASPIRIN (Aspirin EC) 81 mg PO Q DAY #0 12/01/10 07/09/21 FOLIC ACID/VIT A/VIT B1/VIT 1 tab PO #0 12/01/10 07/09/21 (#MULTIVITAMIN) acetaminophen 500 mg tablet 500 mg PO Q6H PRN 04/06/19 07/09/21 (Tylenol Extra Strength) Previous Rx's Medication Instructions Recorded alendronate 35 mg tablet 35 mg PO QWEEK #12 tab 07/29/20 amlodipine 5 mg tablet 5 mg PO BID #180 tab 09/16/20 losartan 50 mg-hydrochlorothiazide 1 tab PO DAILY #90 tab 09/16/20 12.5 mg tablet ezetimibe 10 mg tablet See Rx Instructions .ROUTE 01/19/21 .COMPLEX #90 tab erythromycin 5 mg/gram (0.5 %) eye 1 cm EYE-LEFT QID 5 Days #3.5 g 07/08/21 ointment amoxicillin 875 mg-potassium 1 tab PO BID #20 tab 07/11/21 clavulanate 125 mg tablet (Augmentin) Allergies Allergy/AdvReac Type Severity Reaction Status Date / Time No Known Drug Allergies Allergy Verified 07/11/21 15:51 Review of Systems Review of Systems Narrative: Remainder of complete review of systems is otherwise unremarkable except for that included in the HPI. 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 Right hip pain Strain of tendon of left rotator cuff Surgical History History of carpal tunnel release (Unknown) Hx of appendectomy (Unknown) Hx of cataract surgery (Unknown) Status post cholecystectomy Family History Father Cancer Mother Cancer Social History Smoking Status: Never smoker alcohol intake: never Smoking Status: Never smoker alcohol intake frequency: 0-2 drinks per day Substance Use Type: does not use Exam Initial Vital Signs Initial Vital Signs: Vital Signs Temperature 99.5 F 07/11/21 15:48 Pulse Rate 96 H 07/11/21 15:48 Respiratory Rate 18 07/11/21 15:48 Blood Pressure 151/71 H 07/11/21 15:48 Pulse Oximetry 96 07/11/21 15:48 Course Orders Ordered: ED Orders 07/11/21 16:00 Complete Blood Count AUTO DIFF Stat Comprehensive Metabolic Panel Stat Lipase Stat 07/11/21 16:08 Urine Culture Stat Urine Microscopic Stat 07/11/21 18:22 CT abdomen pelvis w con Stat Discontinued Medications Amoxicillin/Clavulanate Potassium (Amoxicillin/Clav 875/125 Mg) 1 tab PO NOW ONE Stop: 07/11/21 19:42 Vital Signs Vital signs: Vital Signs - 8 hr 07/11/21 15:48 07/11/21 17:31 07/11/21 18:15 Temperature 99.5 F Pulse Rate 96 H 83 80 Respiratory Rate 18 18 18 Blood Pressure 151/71 H 138/62 132/63 Pulse Oximetry 96 98 97 07/11/21 19:00 07/11/21 19:03 Temperature Pulse Rate 75 Respiratory Rate 18 Blood Pressure 132/61 Pulse Oximetry 97 Medical Decision Making Lab Data Result diagrams: 07/11/21 16:00 07/11/21 16:00 Labs: Lab Results 07/11/21 07/11/21 07/11/21 Range/Units 16:00 16:00 16:08 WBC 7.7 (4.5-11.0) X10^3/uL RBC 4.00 (4.0-5.2) X10^6/uL Hgb 12.8 (12.0-16.0) g/dL Hct 38.4 (36-46) % MCV 95.9 (80-100) fL MCH 31.9 (26-34) PG MCHC 33.2 (30-36) % RDW 13.7 (11.6-14.8) % Plt Count 106 L (150-400) X10^3/uL Neut % (Auto) 77.7 H (50-75) % Lymph % (Auto) 12.2 L (25-40) % Potter % (Auto) 8.3 (3-14) % Eos % (Auto) 1.4 L (2-4) % Baso % (Auto) 0.4 (0-2) % Neut # (Auto) 6000 (1877-6449) /uL Lymph # (Auto) 900 L (2233-0518) /uL Potter # (Auto) 600 (0-900) /uL Eos # (Auto) 100 (0-450) /uL Baso # (Auto) 0 (0-100) /uL Sodium 136 L (137-145) mmol/L Potassium 3.9 (3.4-5.1) mmol/L Chloride 102 (98-107) mmol/L Carbon Dioxide 26 (22-32) mmol/L BUN 16 (7-17) mg/dL Creatinine 0.70 (0.52-1.04) mg/dL Estimated GFR > 60.0 (>60) mL/min BUN/Creatinine Ratio 22.9 H (6-22) Glucose 140 H (80-110) mg/dL Calcium 9.8 (8.4-10.2) mg/dL Total Bilirubin 0.9 (0.2-1.3) mg/dL AST 55 H (14-36) IU/L ALT 33 (<35) IU/L Alkaline Phosphatase 115 (38-126) U/L Total Protein 7.7 (6.3-8.2) g/dL Albumin 4.3 (3.5-5.0) g/dL Globulin 3.4 (1.7-4.1) g/dL Albumin/Globulin Ratio 1.3 (1.0-2.8) Lipase 81 (23-300) U/L Urine RBC None seen (0-5/HPF) Urine WBC 5-10/hpf H (0-5/HPF) Ur Transition Epith Cell 1-5/hpf (0-5/HPF) Urine Bacteria Few (2-10) H (None) Ur Culture Indicated? Culture not indicate Urine Dip Bedside Urine Glucose Negative Bedside Urine Bilirubin - Negative Bedside Urine Ketone - Negative Urine Specific [place] 1.015 Bedside Urine Occult Blood - Negative Bedside Urine pH 6 Bedside Urine Protein - Negative Bedside Urine Urobilinogen - Negative Bedside Urine Nitrite - Negative Bedside Urine Leukocytes + 70 Esterase Point of care testing: Urine Dip Bedside Urine Glucose Negative Bedside Urine Bilirubin - Negative Bedside Urine Ketone - Negative Urine Specific [place] 1.015 Bedside Urine Occult Blood - Negative Bedside Urine pH 6 Bedside Urine Protein - Negative Bedside Urine Urobilinogen - Negative Bedside Urine Nitrite - Negative Bedside Urine Leukocytes + [address] scan - abdomen/pelvis: Radiologist's Impression: FINDINGS:? Image quality:? Excellent.? ? Lung bases:? Bibasilar atelectasis. Heart:? No significant findings. ? ABDOMEN: Liver:? Again noted, there is nodular contour of the liver compatible with cirrhosis.? No focal intrahepatic abnormality seen. Gallbladder:? Status post cholecystectomy. Biliary ducts:No intrahepatic or extrahepatic biliary ductal dilatation identified. ? Pancreas:? Unremarkable.? ? Spleen:? Moderate splenomegaly as before. Adrenal Glands:? Unremarkable.? ? Kidneys and Ureters:? No hydronephrosis.? No perinephric stranding.? Symmetric renal enhancement..? ? ? Stomach and Bowel:? Stomach and small bowel appear unremarkable.? Scattered colonic diverticulosis most severe in the sigmoid colon.? There is moderate inflammatory changes surrounding the sigmoid colon.? No evidence for perforation or organized fluid collection seen. Peritoneum:? Small amount of reactive free fluid in the lower abdomen and pelvis.? No free air.? ? Ventral Wall: ? No hernias.? Abdominal Nodes:? No retroperitoneal or mesenteric adenopathy by size criteria.? Vessels:Scattered atherosclerotic calcifications of the abdominal aorta and iliac vessels without aneurysmal dilatation. ? PELVIS: Pelvic Organs:? Reproductive organs are unremarkable as imaged. Bladder:Urinary bladder thickness appears normal for degree of distention. No perivesicular inflammatory stranding. Pelvic Nodes: No enlarged lymph nodes.? Miscellaneous: No hernias are seen. ? ? ? Bones: No acute vertebral body compression fractures. Multilevel spondylitic changes throughout the imaged spine.? No suspicious osseous lesions. ? IMPRESSION:? ? 1. Acute sigmoid colon diverticulitis without evidence for perforation or abscess formation. ? 2. Redemonstration of cirrhotic liver. ? 3. Splenomegaly. ? 4. Status post cholecystectomy. ? 5. Status post appendectomy.? ? ? Dictated by: Alexander Pop M.D. on 07/11/2021 at 18:50 ? ? [facility] Narrative Medical decision making narrative: 80-year-old woman with 2 days of low-grade fevers abdominal pain no dysuria with relatively unremarkable labs and minor abnormalities on urinalysis. Given her systemic symptoms lack of dysuria or flank pain I suspect that the abnormal urinalysis is not the causative source of her symptoms. Given her age the differential is broad particularly in light of the recently diagnosed breast cancer. Will obtain a CT scan. CT scan reveals diverticulitis. This is much more consistent with her presentation complaints. It is mild in outpatient antibiotics will be appropriate. She is started on Augmentin b.i.d. for 10 days. Did ask that she contact her surgeon to see if they would want to reschedule her breast surgery in light of the antibiotics and diverticulitis diagnosis. At this time she is safe for home discharge Discharge Plan Departure Patient Disposition: Home Clinical Impression: Diverticulitis Instructions: DI for Diverticulitis Activity Restrictions/Additional Instructions: Thank you for coming in today Your white blood cell count was slightly elevated in you had some minor abnormalities on your urinalysis however your symptoms did not suggest a bladder infection. After doing a CT scan it became clear that you actually have diverticulitis, in the early stages that can be treated with outpatient antibiotics I have given you the 1st dose of Augmentin and you need to complete a 10 day course. I have electronically transmitted the prescription to [facility] for you. You find that you are getting worse you need to come back into the emergency department. Please contact your breast surgeon and let them know that you are being treated for diverticulitis with antibiotics to make sure that this does not change their plans for your upcoming breast cancer surgery. I wish you the best. Prescriptions: New amoxicillin-pot clavulanate [Augmentin] 875-125 mg tablet 1 tab PO BID Qty: 20 0RF No Action erythromycin 5 mg/gram (0.5 %) ointment 1 cm EYE-LEFT QID 5 Days Qty: 3.5 0RF ASPIRIN (Aspirin EC) 81 mg PO Q DAY Qty: 0 0RF FOLIC ACID/VIT A/VIT B1/VIT (#MULTIVITAMIN) 1 tab PO Qty: 0 0RF alendronate 35 mg tablet 35 mg PO QWEEK Qty: 12 3RF ezetimibe 10 mg tablet See Rx Instructions .ROUTE .COMPLEX Qty: 90 2RF Dose Instruction: TAKE ONE TABLET BY MOUTH ONE TIME DAILY Rx Instructions: TAKE ONE TABLET BY MOUTH ONE TIME DAILY losartan-hydrochlorothiazide 50-12.5 mg tablet 1 tab PO DAILY Qty: 90 3RF amlodipine 5 mg tablet 5 mg PO BID Qty: 180 3RF acetaminophen [Tylenol Extra Strength] 500 mg tablet 500 mg PO Q6H PRN0RF Referrals: Darion Clifford, [Primary Care Provider] -
[2021-07-11 18:15] VITALS: BP 132/63; PULSE 80; RESP 18; O2SAT 97
--- NOTE | 2021-07-11 18:22 | DI.CT.S_ITS ---
PROCEDURE: CT ABDOMEN PELVIS W CON INDICATIONS: lower abdominal pain for 2 day, fevers TECHNIQUE: After the administration of intravenous contrast, axial sections acquired from the lung bases to the pubic symphysis. Coronal and sagittal reformats were performed. For radiation dose reduction, the following was used: automated exposure control, adjustment of mA and/or kV according to patient size. COMPARISON: [facility], CT, ABDOMEN/PELVIS WITH CONTRAST, 10/06/2017, 20:15. [facility], CT, ABDOMEN/PELVIS WITH CONTRAST, 10/23/2007, 22:04. FINDINGS: Image quality: Excellent. Lung bases: Bibasilar atelectasis. Heart: No significant findings. ABDOMEN: Liver: Again noted, there is nodular contour of the liver compatible with cirrhosis. No focal intrahepatic abnormality seen. Gallbladder: Status post cholecystectomy. Biliary ducts:No intrahepatic or extrahepatic biliary ductal dilatation identified. Pancreas: Unremarkable. Spleen: Moderate splenomegaly as before. Adrenal Glands: Unremarkable. Kidneys and Ureters: No hydronephrosis. No perinephric stranding. Symmetric renal enhancement.. Stomach and Bowel: Stomach and small bowel appear unremarkable. Scattered colonic diverticulosis most severe in the sigmoid colon. There is moderate inflammatory changes surrounding the sigmoid colon. No evidence for perforation or organized fluid collection seen. Peritoneum: Small amount of reactive free fluid in the lower abdomen and pelvis. No free air. Ventral Wall: No hernias. Abdominal Nodes: No retroperitoneal or mesenteric adenopathy by size criteria. Vessels:Scattered atherosclerotic calcifications of the abdominal aorta and iliac vessels without aneurysmal dilatation. PELVIS: Pelvic Organs: Reproductive organs are unremarkable as imaged. Bladder:Urinary bladder thickness appears normal for degree of distention. No perivesicular inflammatory stranding. Pelvic Nodes: No enlarged lymph nodes. Miscellaneous: No hernias are seen. Bones: No acute vertebral body compression fractures. Multilevel spondylitic changes throughout the imaged spine. No suspicious osseous lesions. IMPRESSION: 1. Acute sigmoid colon diverticulitis without evidence for perforation or abscess formation. 2. Redemonstration of cirrhotic liver. 3. Splenomegaly. 4. Status post cholecystectomy. 5. Status post appendectomy. Dictated by: Alexander Pop M.D. on 07/11/2021 at 18:50 Approved by: Alexander Pop M.D. on 07/11/2021 at 19:00
[2021-07-11 19:00] VITALS: PULSE 75; RESP 18; O2SAT 97
[2021-07-11 19:03] VITALS: BP 132/61
[2021-07-11] MEDS: AMOXICILLIN/CLAV 875/125 MG 1 TAB PO (19:47)
[2021-07-11 19:48] VITALS: BP 133/60; PULSE 81; RESP 14; O2SAT 96
== END 2021-07-11 19:54 | disposition home or self-care (01) ==
PROVIDERS: Emergency Medicine; Emergency Provider Emergency Medicine; PCP Family Medicine
DX: K57.32 Diverticulitis of large intestine without perforation or abscess without bleeding (principal)
CPT/HCPCS: 36415; 74177; 80053; 81003; 81015; 83690; 85025; 87086; 99284; Q9967

== ENCOUNTER → 2021-07-28 11:51 | Day surgery (SDC) | payer MEDICARE, SELFPAY ==
[2021-07-22 09:39] VITALS: BMI 29.5
[2021-07-28 12:34] VITALS: BMI 29.5
[2021-07-28 12:42] VITALS: BMI 29.5
[2021-07-28 12:54] LABS: COVID19 -Nasal RAPID Negative (Negative)
[2021-07-28 13:12] VITALS: BP 164/87; PULSE 71; RESP 16; TEMP 36.7; O2SAT 97
[2021-07-28] MEDS: LACTATED RINGERS 1,000 ML 42 ML IV (13:15)
[2021-07-28] MEDS: ACETAMINOPHEN 325 MG TABLET 975 MG PO (13:21)
--- NOTE | 2021-07-28 14:59 | SUR.PREOP ---
Procedure cancelled due to test needed prior unavailable. Dr Millan and Veronica aware. Plans being placed for patient to have OR suite time tomorrow. Family notified and will be updated with scheduled time.
--- NOTE | 2021-07-28 15:01 | SUR.PREOP ---
IV site left in place with standing order by Dr Millan.
--- NOTE | 2021-07-28 15:19 | SUR.PREOP ---
Spoke to granddaughter. Aware to check back in tomorrow at 7am.
== END | disposition home or self-care (01) ==
PROVIDERS: PCP Family Medicine; Referring Provider Surgery; Visit Provider Surgery
PROC: 0HTU0ZZ Resection of Left Breast, Open Approach (ICD-10-PCS; CPT 19301; principal; 2021-07-28 13:45)
DX: C50.912 Malignant neoplasm of unspecified site of left female breast (principal); Z53.09 Procedure and treatment not carried out because of other contraindication
CPT/HCPCS: 19301; 38500; 87635; J0330; J1100; J2250; J2405; J2704; J3010

== ENCOUNTER → 2021-07-29 06:59 | Outpatient (CLI) | payer MEDICARE, SELFPAY ==
--- NOTE | 2021-07-29 07:25 | DI.NM.S_ITS ---
PROCEDURE: NM SENTINEL NODE W IMAGING RADIOPHARMACEUTICAL: 2 mCi Millipore filtered Tc-99m sulfur colloid. INDICATIONS: Left breast cancer COMPARISON: [facility], , MM DIAGNOSTIC MAMMO UNILAT LT2D, 06/29/2021, 14:24. [facility], , US BX BREAST PERC W VAC DEVICE, 06/29/2021, 13:28. Merged with [facility], US BREAST LT LIMITED, 06/02/2021, 14:08. TECHNIQUE: The area around the nipple was prepped and draped in a sterile fashion. Tc-99m sulfur colloid was injected intra-dermally in the outer edge of the areola in the left breast. Images were obtained subsequently. A body contour outline was obtained. FINDINGS: There is no lymph node(s) in the ipsilateral axilla. IMPRESSION: 1. Administration of radiotracer into the left breast periareolar region for intra-operative sentinel lymph node localization. 2. No lymph nodes are identified in the ipsilateral axilla. Dictated by: Kamilla Okeefe M.D. on 07/29/2021 at 10:26 Approved by: Kamilla Okeefe M.D. on 07/29/2021 at 10:27
== END ==
PROVIDERS: PCP Family Medicine; Referring Provider Surgery; Visit Provider Surgery
DX: C50.912 Malignant neoplasm of unspecified site of left female breast (principal)
CPT/HCPCS: 38792; 78195; A9541

== ENCOUNTER 2021-07-29 07:00 | Day surgery (SDC) | payer MEDICARE, SELFPAY ==
[2021-07-29] VITALS (14 sets, daily range): BP systolic 128–155; BP diastolic 64–78; PULSE 78–86; RESP 12–19; TEMP 36.6–37.3; O2SAT 90–98; BMI 29.8
--- NOTE | 2021-07-29 | DI.MG.S_ITS ---
SPECIMEN LEFT BREAST: 07/29/2021 CLINICAL: Left breast specimen. Correlation is made to exams dated: 06/29/2021 ultrasound biopsy, 06/29/2021 mammogram, 06/02/2021 mammogram, 04/30/2021 mammogram, and 06/02/2021 ultrasound - Located Within [facility]. A surgical specimen was imaged for the lesion located in the left breast at 1 o'clock middle depth. This was described on the previous mammography and ultrasound reports. IMPRESSION: SPECIMEN The imaged specimen includes the lesion and the biopsy clip. The specimen shows characteristics of lesion of interest seen on prior imaging evaluations. Findings were relayed to the operating room staff and surgeon at 1157 hrs. This exam was interpreted at Station ID: [id number]. Alexander Pop M.D. aty/:07/29/2021 13:30:37
--- NOTE | 2021-07-29 | PATH_ITS ---
[facility] Accession Number: [id number] . 01 Material submitted: . PART A: lymph node - LEFT AXILLARY LYMPH NODE PART B: breast - LEFT BREAST TISSUE . 01 Clinical history: . B: LEFT BREAST TISSUE- LONG STITCH LATERAL X2, SHORT STITCH SUPERIOR . 01 Diagnosis: A. Left Axillary Lymph Nodes, Lymph Node Dissection: Invasive carcinoma involves regional lymph nodes. Number of lymph nodes with macrometastasis (greater than 2 mm): 5. Size of largest jessenia metastatic deposit: 2.1 cm. Extanodal extension: Identified, less than 2 mm. Total number of lymph nodes examined: 5. . B. Left Breast Tissue, Partial Mastectomy: Invasive carcinoma (no special type) with the following features: -Grade 3 of 3 (Pascual combined histologic grade;total score 9/9) tubular differentiation none (3/3), nuclear pleomorphism high(3/3) and mitotic rate high (3/3). -Tumor size: 3.0 cm (gross description). 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 -Negative for extensive intraductal component (EIC). -Calcifications: Dystrophic calcification are present within vessel nevarez. -Lymphovascular invasion: Identified. -Resection margins: All margins are negative. Invasive carcinoma is present less than 1 mm from the lateral margin and 3 mm from the medial margin. All other margins are widely negative. -Prognostic markers repeated on the excision specimen: a. Estrogen receptor: Negative (0% tumor cells positive, positive internal controls). b. HER-2: Negative (Score 0). -Additional findings: -Fibrocystic changes with microcalcifications and columnar cell changes are identified. -Biopsy site present. -Pathologic stage: pT2 pN2a (tumor greater than 20 mm but less than or equal to 50 mm in greatest dimension). [facility] 08/05/2021 1527 Local . 01 Comment: Tumor size was assessed based upon the gross and microscopic evaluation. It involves 6 contiguous slices of approximately 6 mm thickness. . Selected slides from this case have also been reviewed by Justin Damian and Robert Hu for ongoing quality assurance supervisor body, and they concur with the given interpretation. . 01 Electronically signed: . Mer Edwards MD, Pathologist NPI- [id number] . 01 Gross description: . A. Received in formalin, labeled left axillary lymph nodes consist of multiple cabrera-yellow fragments of adipose tissue measuring 4.0 x 3.0 x 2.0 cm in aggregate with three lymph nodes ranging from 1.0 x 0.6 x 0.4 cm to 2.6 x 1.5 x 1.4 cm. The lymph nodes are entirely submitted. . A1: One bisected (blue) and one intact lymph node. A2-A4: One lymph node, serially sectioned. . B. Received in formalin, labeled left breast tissue consists of a left lumpectomy specimen. Weight: 81 grams. Measurement: 8.0 cm from anterior to posterior by 8.0 cm from superior to inferior by 4.0 cm from medial to lateral. Wire: Absent. Skin Ellipse: Absent. Margins: The specimen is oriented with a long suture designated lateral and two short suture designated superior. The specimen is inked as follows: Superior blue, inferior green, anterior red, posterior black, medial yellow, and lateral orange. Sliced: The specimen is serially sectioned from anterior to posterior into 12 slices. Lesion: There is a somewhat ill defined, firm, cabrera-white, lobulated lesion located in slices 4-9. Size: 3.0 x 2.5 x 2.5 cm. Biopsy site: There is a balloon-shaped silver metallic biopsy marker within slice 8 located within the lesion. Distance to margins: 0.2 cm from the medial and lateral margins, 1.8 cm from the superior margin, and greater than 2 cm from all remaining margins. Other: The remaining cut surfaces are composed of approximately 80% cabrera-yellow lobulated adipose tissue and 20% cabrera-white fibrous tissue. Electrical Designer Drafter sections are submitted. . B1: Slice 1, life assurance representative anterior margin, perpendicular sections. B2: Slice 2, anterior to lesion. B3: Slice 3, anterior to lesion (lateral margin). B4: Slice 4, lesion in relation to lateral margin. B5: Slice 5, lesion in relation to lateral margin. B6: Slice 5, lesion in relation to medial and superior margins. B7-B8: Slice 6, lesion in relation to lateral and medial margins. B9-B10: Slice 7, lesion in relation to lateral and medial margins. B11: Slice 8, medial and inferior margins. B12: Slice 8, site of biopsy marker, mass in relation to medial margin. B13: Slice 8, mass in relation to lateral margin. B14: Slice 8, mass in relation to superior margin. B15: Slice 8, mass in relation to superior and lateral margins. B16: Slice 9, mass in relation to lateral margin. B17: Slice 10, posterior to mass (lateral margin). B18: Slice 12, life assurance representative perpendicular sections of posterior margin. . Formalin fixation time: Approximately 25 hours. ([id number]) /MRV 07/30/2021 1004 Local . 01 Microscopic: . Part B: Immunostains are performed to confirm the lymphovascular invasion. ERG and D2-40 highlight the endothelial cells with tumor deposit present within the lumen (in blocks B3 and B4). Within block B2, a minute focus ( 1 mm) of tumor surrounded by positive p63 cells is noted. This focus is negative on ERG and positive on D2-40. 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 . Within block B11, findings of fibrocystic changes are confirmed with the mosaic pattern of staining on CK5/6, ER is variably positive and p63 immunostains highlight the myoepithelial layer. . Within blocks B10 and B12, immunostains are performed to evaluate for DCIS. A p63 and smooth muscle myosin heavy chain immunostain is negative around the areas of interest, arguing against DCIS and supporting the presence of invasive carcinoma. . Within block B7, an DEMARIO stain is performed to evaluate for the inside-out pattern as seen in micropapillary carcinomas. The stain is diffusely positive within the malignant cells and is negative for the typical stain pattern as observed in micropapillary type of invasive carcinoma. . ER and HER-2 immunostains are also performed on block B7 and show the results reflected in the final diagnosis. All controls stain appropriately. . Cold ischemic time is <5 minutes. The scoring criteria for breast biomarkers by immunohistochemistry is based on the ASCO/CAP guidelines (Malcolm AC et al, J Clin Oncol: 2018 Feb 07;36(20):0785-4898 and Maribell FRASER et al, Arch Pathol Lab Med: 2009;134(6):907-22). Deparaffinized sections of formalin fixed tissue (along with appropriate positive controls) are incubated with the above antibody(s). Using the automated iFulfillment stainer, tissue is incubated with the designated antibody which is then localized by a non-biotin, dual polymer detection system. The external controls are reviewed for appropriate reactivity and found to be adequate. Results on the target cell population are indicated above. These tests have not been validated on decalcified or alcohol-based fixed tissue. . * This test was developed and its performance characteristics determined by [employer]. It has not been cleared or approved by the U.S. Food and Drug Administration. The FDA has determined that such clearance or approval is not necessary. This test is used for clinical purposes. It should not be regarded as investigational or for research. . 01 Pathologist provided ICD-10: C50.912 . 01 CPT . 668673, 546791, 630300, 393840, [id number], E92483 Performed at: 01 [facility] [address] [place] [address], [place], [place] [id number] MD Sagar Sparks MD Phone: [phone]
--- NOTE | 2021-07-29 08:24 | SUR.PREOP ---
Pt to DI with Gram.
--- NOTE | 2021-07-29 09:52 | SUR.PREOP ---
0950 hrs: Pt returned from DI.
[2021-07-29] MEDS: LACTATED RINGERS 1,000 ML 42 ML IV ×2 (10:01→11:21)
--- NOTE | 2021-07-29 10:16 | PM.PREOP ---
Pre-operative Note COVID-19 COVID-19 status: Negative Result date/Date tested (Pos, Neg/Pending): 07/27/21 Interval Note History & Physical reviewed/Exam performed by Physician: Yes Changes to H&P: No H&P completed within 30 days and has changed as indicated here:: The patient has decided on lumpectomy with sentinel lymph node biopsy. She had her lymphoscintigraphy injection today ASA Class (for procedural sedation): II
[2021-07-29] MEDS: CEFAZOLIN 2 GM/20 ML SYRINGE IV (10:35)
--- NOTE | 2021-07-29 11:03 | SUR.OPER ---
Supine on padded OR bed, head on pillow, arms secured on padded arm boards at <90 degrees abduction, legs uncrossed, safety belt at thigh, tape over blanket over lower legs. Pillow under knees, gel pad under bilateral heels.
[2021-07-29] MEDS: BUPIVACAINE 0.5% W/ EPI (PF) 30 ML VIAL INJ (11:09)
[2021-07-29] MEDS: LIDOCAINE 1% 20 ML INJ (11:09)
[2021-07-29] MEDS: METHYLENE BLUE 50 MG/10 ML VIAL IV (11:10)
--- NOTE | 2021-07-29 12:21 | PM.OP.1 ---
Operative Date/Time/Diagnoses Date of procedure: 07/29/21 Time of procedure: 12: Pre-op diagnosis: Left breast cancer Post-op diagnosis: same Procedure & Clinicians Procedure: Left breast partial mastectomy and sentinel lymph node biopsy Same procedure as scheduled: Yes Indications: Left breast cancer Surgeon: Rigo Millan Click Yes if Unassisted: Yes Anesthesia Type: General Operative Notes Findings: Large left axillary lymph nodes Procedure in detail: The patient was given preoperative antibiotic. The patient was brought to the operating room, placed on the table in the supine position, general endotracheal anesthesia was induced. Arms were abducted on arm boards. 5 mL of 50% methylene blue were injected near the left area lower border. The left breast and axilla were prepped and draped in the usual fashion. A time-out was performed. Additional massage was performed to spread the methylene blue. The lymphoscintigraphy probe was used to identify a potential sentinel node but there was only background signal. There were however a few large palpable nodes in the left axilla where the sentinel node would be expected. We injected lidocaine into the skin and made a transverse left axillary incision of roughly 6 cm. We dissected down through the subcutaneous adipose tissue until we could more easily palpate the palpable node. The lymphoscintigraphy signal was no higher than the background and no blue dye was noted however we excised 2 large nodes because of their size. Once these were removed from the axilla they were checked ex vivo and there was no significant signal. There was also no sign of blue dye. We then packed axilla with a lap pad. We then turned to the left breast. We made a 10 cm incision over the palpable mass in the lateral upper outer quadrant. We created flaps superior and inferior to the incision and then dissected down to the lateral chest wall keeping the palpable mass within the center portion of specimen. We reached serratus anterior musculature at the deepest aspect of the dissection. Two silk sutures were placed at the lateral aspect of the mass and left long. A short superior stitch was placed. The specimen was sent to Radiology for specimen mammogram. We then irrigated both wound cavities initially with sterile water followed by sterile saline. Marcaine was injected into the muscle layer of the lumpectomy site. A few bleeders were cauterized. One stitch was placed in the musculature of the serratus anterior to stop a small bleeder. Once the wound cavities were hemostatic we injected some Marcaine into the dermis and closed both incisions in layers using multiple interrupted 3-0 Vicryl dermal sutures followed by a running 4-0 Monocryl subcuticular closure. Steri-Strips were applied followed by dry gauze and a breast binder. Post-operative Condition: stable Disposition: PACU
[2021-07-29] MEDS: HYDROMORPHONE 2 MG INJ IV (13:15)
[2021-07-29] MEDS: OXYCODONE IR 5 MG TABLET PO (13:34)
[2021-07-29] MEDS: ACETAMINOPHEN 325 MG TABLET 975 MG PO (13:34)
--- NOTE | 2021-07-29 14:28 | SUR.PHASEII ---
spoke to patients granddaughter at length about discharge instructions over the phone. states understanding. rx called to pharmacy. states understanding to case picker. patient converses appropriately with staff. remains drowsy but can hold a conversation appropriately. states feels pain is tolerable and is ready for d/c. helped getting dressed.
== END 2021-07-29 14:35 | disposition home or self-care (01) ==
PROVIDERS: PCP Family Medicine; Referring Provider Surgery; Visit Provider Surgery
PROC: (CPT 19301; principal; 2021-07-29 09:00)
DX: C50.412 Malignant neoplasm of upper-outer quadrant of left female breast (principal); I10 Essential (primary) hypertension; Z17.1 Estrogen receptor negative status [ER-]; C77.3 Secondary and unspecified malignant neoplasm of axilla and upper limb lymph nodes
CPT/HCPCS: 19301; 38500; 38900; 76098; 78195; A9541; J0690; J1170; Q9968

== ENCOUNTER → 2021-08-24 16:03 | Outpatient (CLI) | payer MEDICARE, SELFPAY ==
[2021-08-24 17:15] LABS: COVID19 -Nasal RAPID Negative (Negative)
== END ==
PROVIDERS: PCP Family Medicine; Referring Provider Surgery; Visit Provider Surgery
DX: Z01.812 Encounter for preprocedural laboratory examination (principal); Z20.822 Contact with and (suspected) exposure to COVID-19
CPT/HCPCS: 80053; 85025; 87635; 99215; C9803

== ENCOUNTER 2021-08-26 06:40 | Day surgery (SDC) | payer MEDICARE, SELFPAY ==
[2021-08-25 07:23] VITALS: BMI 29.7
[2021-08-26] VITALS (8 sets, daily range): BP systolic 115–147; BP diastolic 66–85; PULSE 68–82; RESP 15–18; TEMP 36.3–36.8; O2SAT 94–98; BMI 29.7
--- NOTE | 2021-08-26 | DI.RAD.S_ITS ---
PROCEDURE: XR CHEST 1V INDICATIONS: port TECHNIQUE: One view of the chest was acquired. COMPARISON: None. FINDINGS: Surgical changes and devices: Right-sided port with the catheter tip projecting at the cavoatrial Lungs and pleura: Mild bibasilar hazy opacity. Prominent lung volumes. No pleural effusions or pneumothorax. Mediastinum: Mediastinal contours appear normal. Heart size appears prominent. Bones and chest wall: No suspicious bony lesions. Overlying soft tissues appear unremarkable. IMPRESSION: Right-sided port with the catheter tip projecting at the cavoatrial junction. Heart size appears prominent. Bibasilar hazy opacity. Suspect atelectasis. Dictated by: Isaiah Pérez M.D. on 08/26/2021 at 9:42 Approved by: Isaiah Pérez M.D. on 08/26/2021 at 9:44
[2021-08-26] MEDS: LACTATED RINGERS 1,000 ML 42 ML IV (07:31)
--- NOTE | 2021-08-26 08:04 | PM.HP.1 ---
History of Present Illness History of Present Illness Date Patient Seen: 08/26/21 Time Patient Seen: 08:04 Chief complaint: PORT PLACEMENT Narrative: Patricia is here for her Port-A-Cath. Dr. Almazan has ordered a CT scan of the chest and an axillary ultrasound but it has not happened yet. She has never had surgery on her neck or upper chest. She has never broken a clavicle. 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 Right hip pain Splenomegaly Strain of tendon of left rotator cuff Surgical History (Updated 08/25/21 @ 07:27 by Rosita Thomas RN) H/O right wrist surgery History of carpal tunnel release (Unknown) History of partial mastectomy of left breast (07/29/21) History of surgery Hx of appendectomy (Unknown) Hx of cataract surgery (Unknown) Hx of cholecystectomy Hx of eye surgery Status post cholecystectomy Family & Social History Family History Father Cancer Mother Cancer Social History: household members family Tobacco & Substance use: Smoking Status Never smoker alcohol intake never alcohol intake frequency 0-2 drinks per day Substance Use Type does not use Meds Home Medications and Allergies Home Medications Medication Instructions Recorded Confirmed Type aspirin 81 mg tablet,delayed 81 mg PO DAILY #0 12/01/10 08/26/21 History release (Aspirin Low Dose) multivitamin 1 tab PO DAILY #0 12/01/10 08/26/21 History acetaminophen 500 mg tablet 500 mg PO Q6H PRN 04/06/19 08/26/21 History (Tylenol Extra Strength) amlodipine 5 mg tablet 5 mg PO BID #180 tab 09/16/20 08/26/21 Rx losartan 50 mg-hydrochlorothiazide 1 tab PO DAILY #90 tab 09/16/20 08/26/21 Rx 12.5 mg tablet ezetimibe 10 mg tablet See Rx Instructions .ROUTE 01/19/21 08/26/21 Rx .COMPLEX #90 tab alendronate 35 mg tablet 35 mg PO QWEEK #12 tab 07/20/21 08/26/21 Rx Allergies Allergy/AdvReac Type Severity Reaction Status Date / Time No Known Drug Allergies Allergy Verified 08/11/21 11:58 Exam Vital Signs (past 8 hours): - 08/26/21 07:09 Temperature 97.6 F Pulse Rate 82 Respiratory Rate 16 Blood Pressure 115/66 Pulse Oximetry 97 Oxygen Delivery Method Room Air Const General: comfortable HENMT Head: normal to inspection Neck Neck: normal visual inspection Chest Chest: normal inspection of the chest Assessment & Plan Assessment and plan (1) Breast cancer metastasized to axillary lymph node: Status: Acute Plan 80-year-old woman with left breast cancer. We will place as a Port-A-Cath today. We reviewed the risks and benefits and she would like to proceed. We will await further staging before deciding on a left axillary dissection. COVID-19 COVID-19 status: Negative Result date/Date tested (Pos, Neg/Pending): 08/25/21 Time Spent With Patient Critical Care time: I spent a total of [] minutes of critical care time on this patient's care today; this time is exclusive of procedural time.
[2021-08-26] MEDS: CEFAZOLIN 2 GM/20 ML SYRINGE IV (08:17)
--- NOTE | 2021-08-26 08:25 | SUR.OPER ---
Supine on padded OR bed, head on pillow, arms padded and tucked at sides, legs uncrossed, safety belt at thigh, tape over blanket over lower legs .
[2021-08-26] MEDS: BUPIVACAINE 0.5% (PF) VIAL 30 ML INJ (08:31)
[2021-08-26] MEDS: LIDOCAINE 1% W/EPI 20 ML INJ (08:32)
[2021-08-26] MEDS: HEPARIN 5,000 UNIT, SODIUM CHLORIDE 0.9% 50 ML IV (08:34)
--- NOTE | 2021-08-26 09:13 | P.OP_ITS ---
Operative Date/Time/Diagnoses Date of procedure: 08/26/21 Time of procedure: 09:13 Pre-op diagnosis: Breast cancer Post-op diagnosis: same Procedure & Clinicians Procedure: Port-A-Cath Same procedure as scheduled: Yes Indications: Breast cancer Surgeon: Rigo Millan Click Yes if Unassisted: Yes Anesthesia Type: MAC +/- Operative Notes Estimated Blood Loss (mL): 10 Procedure in detail: The patient was brought to the operating room, placed on the table in the supine position with the arms tucked. Ancef was administered. Anesthesia was induced via LMA. A time-out was performed. The right chest and neck were prepped and draped in the usual fashion. An ultrasound was used to identify the right internal jugular vein. The vein was noted to be patent. An image was saved and printed and placed in the chart. The right internal jugular vein was accessed via the Seldinger technique under ultrasound guidance. The guidewire was inserted into the superior vena cava. C-arm was used to confirm proper position of the guidewire in the superior vena cava and no ectopy was noted. The needle was removed and the wire was clamped to the drape. Next, a port pocket was created just inferior to the medial clavicle using a 15 blade scalpel. Dissection was carried down to the pectoral fascia. A subcutaneous pocket was created using a combination of cautery and blunt dissection. Next, the port which was primed with injectable saline, was secured to the fascia with 3-0 PDS sutures left untied and clamped. The neck incision was extended with an 11 blade scalpel to approximately 5 mm. The dilator and peel-away sheath were inserted over the wire without resistance. The catheter was passed from the neck incision to the chest incision in the subcutaneous tiss ue using the tunnelling device. The wire and dilator were then removed and the catheter inserted through the peel-away sheath to deliver it into the superior vena cava. The depth of the device was checked using the C-arm and the tip of the device was noted to be in the distal superior vena cava. The exterior portion of the catheter was then trimmed and attached to the port using the strain relief collar. A final image showed good position of the catheter with no kinks. The port was then tucked into the subcutaneous pocket and the sutures were tied to secure the device. The port was then accessed using the Barragan needle and it was noted that the device francesca and flushed easily without resistance. Approximately 4 mL of heparinized saline were injected into the device. The skin incisions were closed with 3-0 Vicryl and 4-0 Monocryl. Steri-Strips were applied patient was awakened and brought to recovery room EBL: 5 mL Ultrasound: The right internal jugular vein was patent. The right carotid artery was visualized adjacent to the vein. Venipuncture was visualized in real-time using the ultrasound. Fluoroscopy: The device was positioned appropriately with the distal end of the catheter near the atriocaval junction. There were no kinks in the catheter. Post-operative Condition: stable Disposition: PACU
== END 2021-08-26 10:28 | disposition home or self-care (01) ==
PROVIDERS: PCP Family Medicine; Referring Provider Surgery; Visit Provider Surgery
PROC: (CPT 36561; principal; 2021-08-26 07:45)
DX: C50.912 Malignant neoplasm of unspecified site of left female breast (principal); I10 Essential (primary) hypertension; K74.60 Unspecified cirrhosis of liver
CPT/HCPCS: 36561; 71045; 76000; C1788; J0690; J1644; J2250; J3010

== ENCOUNTER → 2021-08-27 11:59 | Outpatient (CLI) | payer MEDICARE, SELFPAY ==
--- NOTE | 2021-08-27 12:00 | DI.US.S_ITS ---
ULTRASOUND OF LEFT AXILLA: 08/27/2021 CLINICAL: New palpable left axilla lump. (Left breast bx 06-29-21 malignant. Surg lumpectomy 07-29-21). Comparison is made to exams dated: 06/29/2021 ultrasound biopsy, 06/02/2021 ultrasound, 06/02/2021 mammogram, 04/30/2021 mammogram, 11/25/2020 mammogram, and 05/26/2020 mammogram - [facility]. Color flow ultrasound of the left axilla was performed. Mckinnon scale images of the real-time examination were reviewed. There is a new 3.9 cm x 2.1 cm x 4 cm oval mass with an indistinct and circumscribed margin in the left axilla. This oval mass is hypoechoic. This correlates as palpated. An additional adjacent 2.2 x 1.3 x 1.4 cm similar-appearing mass is seen in the left axilla. These masses are located approximately 5 cm from a benign seroma that is partially imaged at the surgical site. IMPRESSION: PROBABLY BENIGN The new 3.9 cm x 2.1 cm x 4 cm oval mass most likely is an enlarged lymph node and is probably benign. Findings are favored to be reactive given recent surgery and lack of lymphadenopathy on pre-operative imaging. Short term follow up ultrasound is recommended for further evaluation to exclude jessenia metastatic disease. A follow-up left ultrasound in 2-3 months is recommended. This exam was interpreted at Station ID: [id number]. Electronically Signed By: Oswaldo Carter M.D. ar/:08/27/2021 14:38:26 letter sent: Followup Recommended Ultrasound BI-RADS: 3 Probably benign
== END ==
PROVIDERS: PCP Family Medicine; Referring Provider Internal Medicine Hematology & Oncology; Visit Provider Internal Medicine Hematology & Oncology
DX: C50.412 Malignant neoplasm of upper-outer quadrant of left female breast (principal); N63.32 Unspecified lump in axillary tail of the left breast
CPT/HCPCS: 76882

== ENCOUNTER → 2021-09-08 10:38 | Outpatient (CLI) | payer MEDICARE, SELFPAY ==
--- NOTE | 2021-09-08 10:39 | DI.CT.S_ITS ---
PROCEDURE: CT CHEST WO CON INDICATIONS: breast cancer TECHNIQUE: Noncontrast 5 mm thick sections acquired from the pulmonary apices to the posterior costophrenic angles. 1 mm lung window, 5 mm thick coronal and sagittal and 7 mm axial MIP reformats were then acquired. For radiation dose reduction, the following was used: automated exposure control, adjustment of mA and/or kV according to patient size. COMPARISON: [facility], CR, XR CHEST 1V, 08/26/2021, 9:25. [facility], CT, ABDOMEN/PELVIS WITH CONTRAST, 10/06/2017, 20:15. [facility], CT, CT ABDOMEN PELVIS W CON, 07/11/2021, 18:32. FINDINGS: Image quality: Excellent. Lungs and pleura: No acute air space opacities. No pleural effusions or pneumothorax. Central and peripheral airways are patent and normal in caliber. Mediastinum: Heart size is normal. No pericardial effusion. No mediastinal adenopathy by size criteria. Thoracic aorta and central pulmonary arteries are normal in size. Esophagus is normal in caliber. No hiatal hernia. Bones and chest wall: There is a focal left lateral breast lesion seen that measures 4.6 cm. Left breast skin thickening and generalized inflammatory change can be seen. Abnormally enlarged left axillary lymph nodes are seen, with the largest solitary lymph node measuring 3.3 x 2.1 cm in greatest axial dimension. No suspicious bony lesions. Moderate dextroconvex scoliotic curvature is seen. There is a chronic appearing T8 compression deformity seen, with approximately 40% loss of disc height seen on the left. Thyroid gland demonstrates no significant noncontrast abnormality. The right-sided chest port is seen, with the tip near the cavoatrial junction. Abdomen: The spleen is enlarged, measuring 14 cm AP. IMPRESSION: Abnormally enlarged left axillary lymph nodes are seen, which represent metastatic disease until proven otherwise. Along the lateral aspect of the left breast, there is a 4.6 cm low-density lesion, which likely represents a postoperative seroma. Skin thickening and inflammatory change can be seen involving the left breast. Post radiation change is presumed. No pulmonary nodules are seen. To the limits of noncontrast CT, no ciarra enlarged mediastinal lymph nodes are seen. No frankly suspicious bony lesions are detected. Incidental note is made of: Right-sided chest port Dextroconvex scoliotic curvature. Chronic appearing T8 compression deformity Splenomegaly Dictated by: Remington Ag M.D. on 09/08/2021 at 15:01 Approved by: Remington Ag M.D. on 09/08/2021 at 15:06
== END ==
PROVIDERS: PCP Family Medicine; Referring Provider Internal Medicine Hematology & Oncology; Visit Provider Internal Medicine Hematology & Oncology
DX: C50.412 Malignant neoplasm of upper-outer quadrant of left female breast (principal); C77.3 Secondary and unspecified malignant neoplasm of axilla and upper limb lymph nodes; N63.25 Unspecified lump in the left breast, overlapping quadrants; R16.1 Splenomegaly, not elsewhere classified; M41.9 Scoliosis, unspecified; Z95.828 Presence of other vascular implants and grafts
CPT/HCPCS: 71250

== ENCOUNTER → 2021-10-01 09:28 | Outpatient (CLI) | payer MEDICARE, SELFPAY ==
[2021-10-01 11:22] LABS: Hemoglobin A1C% w Est Avg Glu 6.5 % (4.0-6.0)
== END ==
PROVIDERS: PCP Family Medicine; Referring Provider Registered Nurse; Visit Provider Registered Nurse
DX: E11.9 Type 2 diabetes mellitus without complications (principal)
CPT/HCPCS: 36415; 83036

== ENCOUNTER → 2021-10-05 10:15 | Outpatient (CLI) | payer MEDICARE, SELFPAY ==
--- NOTE | 2021-10-05 10:21 | DI.CT.S_ITS ---
PROCEDURE: CT CHEST WO CON INDICATIONS: r/o pneumonitis; right posterior base crackles TECHNIQUE: Noncontrast 5 mm thick sections acquired from the pulmonary apices to the posterior costophrenic angles. 1 mm lung window, 5 mm thick coronal and sagittal and 7 mm axial MIP reformats were then acquired. For radiation dose reduction, the following was used: automated exposure control, adjustment of mA and/or kV according to patient size. COMPARISON: [facility], CT, CT CHEST WO CON, 09/08/2021, 10:54. FINDINGS: Image quality: Excellent. Lungs and pleura: Lungs demonstrate mild coarse subpleural reticulation, mainly at the lung bases but also slightly at the apices. No ground-glass opacities or consolidations. No pleural effusions. Incidental note made of a 2 mm right perihilar solid lung nodule and a 4 mm subpleural posterolateral left lower lobe nodule. Occasional punctate calcified nodules are seen. No suspicious mass. Airways are patent without significant bronchial wall thickening or bronchiectasis. Mediastinum: Heart size is at the upper limits of normal. Trace coronary artery and mitral annular calcification. No pericardial effusion. No mediastinal adenopathy by size criteria. Thoracic aorta and central pulmonary arteries are normal in size. Esophagus is normal in caliber. Tiny hiatal hernia. Bones and chest wall: Right IJ MediPort present. The thyroid gland is normal. No supraclavicular or right axillary adenopathy. There are mildly prominent left axillary lymph nodes, one of the largest measuring 1.1 cm in short axis, in these are still surrounded by mild fat stranding. Number and size has considerably decreased compared to most recent prior study. There is a left upper outer quadrant fluid collection in the breast measuring 4.9 x 2.9 cm, relatively stable. Mild skin thickening over the left breast is likely radiation change. There is rightward thoracic spine scoliosis with a mild central compression fracture of T8. There are no suspicious bone lesions. Abdomen: The visible liver demonstrates a nodular margin and caudate lobe hypertrophy. There is diffuse splenomegaly, only partially imaged. IMPRESSION: 1. There is mild, chronic reticulation in the lungs but no other acute process. 2. Significant improvement in left axillary adenopathy. 3. Findings in the upper abdomen of cirrhosis and portal hypertension, chronic. Dictated by: Gina Dias M.D. on 10/05/2021 at 10:44 Approved by: Gina Dias M.D. on 10/05/2021 at 10:56
== END ==
PROVIDERS: PCP Family Medicine; Referring Provider Internal Medicine Hematology & Oncology; Visit Provider Internal Medicine Hematology & Oncology
DX: R09.89 Other specified symptoms and signs involving the circulatory and respiratory systems (principal); K74.60 Unspecified cirrhosis of liver; K76.6 Portal hypertension; R91.8 Other nonspecific abnormal finding of lung field
CPT/HCPCS: 71250

== ENCOUNTER → 2021-10-08 12:57 | Outpatient (CLI) | payer MEDICARE, SELFPAY | PROVIDERS: PCP Family Medicine; Visit Provider Nurse Practitioner Family | DX: R30.0 Dysuria (principal) | CPT/HCPCS: 87077; 87086; 87186 ==

== ENCOUNTER 2021-10-15 13:01 | Emergency (ER) | payer MEDICARE, SELFPAY ==
[2021-10-15 13:10] VITALS: BP 135/64; PULSE 89; RESP 14; TEMP 36.4; O2SAT 98; BMI 29.3
--- NOTE | 2021-10-15 13:14 | ED.FEMALEGU ---
HPI - Female Genitourinary <Roman Cooney PA-C - Last Filed: 10/15/21 15:17> General Chief complaint: Urogenital-Female Stated complaint: Thinks bladder infection is back Time Seen by Provider: 10/15/21 13:06 History of Present Illness HPI Narrative: Patient is a 80-year-old female who presents to the ED complaining of dysuria. She states that she was seen in the walk-in clinic last week she was put on antibiotic and finished her last dose 2 days ago and the symptoms returned yesterday of burning with urination and cloudiness to the urine. She presents good she is concerned the infection has returned. She is currently getting chemotherapy for CA. she denies any nausea vomiting or diarrhea or fever. She denies any incontinence. No previous history of kidney stones. Related Data Home Medications Medication Instructions Recorded Confirmed aspirin 81 mg tablet,delayed 81 mg PO DAILY #0 12/01/10 10/08/21 release (Aspirin Low Dose) multivitamin 1 tab PO DAILY #0 12/01/10 10/08/21 acetaminophen 500 mg tablet 500 mg PO Q6H PRN 04/06/19 10/08/21 (Tylenol Extra Strength) Previous Rx's Medication Instructions Recorded amlodipine 5 mg tablet 5 mg PO BID #180 tab 09/16/20 ezetimibe 10 mg tablet See Rx Instructions .ROUTE 01/19/21 .COMPLEX #90 tab alendronate 35 mg tablet 35 mg PO QWEEK #12 tab 07/20/21 hydrocodone 5 mg-acetaminophen 325 1 tab PO Q8H PRN #14 tab 08/26/21 mg tablet ondansetron 4 mg disintegrating 4 mg PO Q6H PRN #30 tab 09/07/21 tablet prochlorperazine maleate 10 mg 10 mg PO Q6H PRN #30 tab 09/07/21 tablet (Compazine) nystatin 100,000 unit/gram topical 1 applic TOPICAL BID #60 applic 09/14/21 powder losartan 50 mg-hydrochlorothiazide See Rx Instructions .ROUTE 09/22/21 12.5 mg tablet .COMPLEX #90 tab blood sugar diagnostic (Blood #50 ea 10/06/21 Glucose Test) blood-glucose meter #1 ea 10/06/21 lancets #200 ea 10/06/21 metformin 500 mg tablet 500 mg PO BID #60 tab 10/06/21 phenazopyridine 200 mg tablet 200 mg PO TID 0 Days #6 tab 10/08/21 (Pyridium) ciprofloxacin HCl 500 mg tablet 500 mg PO BID #14 tab 10/15/21 phenazopyridine 100 mg tablet 100 mg PO TID PRN #9 tab 10/15/21 (Pyridium) Allergies Allergy/AdvReac Type Severity Reaction Status Date / Time No Known Drug Allergies Allergy Verified 10/15/21 13:19 Review of Systems <Roman Cooney PA-C - Last Filed: 10/15/21 15:17> Review of Systems ROS Unobtainable: All systems reviewed & are unremarkable except as noted in HPI and below Constitutional Constitutional: Denies chills, Denies fatigue, Denies fever(s), Denies frequent falls, Denies lethargy and Denies weakness Eyes Eyes: Denies change in vision, Denies eye discharge, Denies irritation and Denies loss of vision ENT Ears, Nose, Mouth, and Throat: Denies change in voice, Denies dizziness, Denies neck pain, Denies sore throat and Denies throat swelling Cardiovascular Cardiovascular: Denies chest pain, Denies irregular heart rhythm, Denies lightheadedness, Denies palpitations, Denies dyspnea, Denies dyspnea on exertion and Denies orthopnea Respiratory Respiratory: Denies cough, Denies dyspnea, Denies dyspnea on exertion and Denies wheezing Gastrointestinal Gastrointestinal: Denies abdominal pain, Denies change in bowel habits, Denies diarrhea, Denies nausea and Denies vomiting Genitourinary Genitourinary: Denies hematuria, Reports dysuria, Denies flank pain, Denies urinary incontinence and Denies urinary urgency Musculoskeletal Musculoskeletal: Denies back pain, Denies muscle weakness, Denies neck pain, Denies numbness and Denies tingling Integumentary/Breasts Skin/Breast: Denies pruritus, Denies erythema, Denies rash and Denies wounds Neurologic Neurologic: Denies behavioral changes, Denies confusion, Denies dizziness, Denies frequent falls, Denies loss of vision, Denies numbness, Denies tingling and Denies weakness Psychiatric Psychiatric: Denies anxiety, Denies behavioral changes, Denies confusion, Denies depression, Denies homicidal ideation and Denies suicidal ideation Endocrine Endocrine: Denies fatigue, Denies flushing and Denies palpitations Hematologic/Lymphatic Hematologic/Lymphatic: Denies easy bruising Allergic/Immunologic Allergic/Immunologic: Denies urticaria, Denies throat swelling and Denies wheezing Patient History <Roman Cooney PA-C - Last Filed: 10/15/21 15:17> Medical History Carpal tunnel syndrome (Unknown) Cirrhosis Diverticular disease (Unknown) Hyperglycemia (Unknown) Hyperlipemia (Unknown) Hypertension (Unknown) 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 Right hip pain Splenomegaly Strain of tendon of left rotator cuff Surgical History H/O right wrist surgery History of carpal tunnel release (Unknown) History of partial mastectomy of left breast (07/29/21) History of surgery Hx of appendectomy (Unknown) Hx of cataract surgery (Unknown) Hx of cholecystectomy Hx of eye surgery Status post cholecystectomy Family History Father Cancer Mother Cancer alcohol intake frequency: 0-2 drinks per day Substance Use Type: does not use Exam <Roman Cooney PA-C - Last Filed: 10/15/21 15:17> Initial Vital Signs Initial Vital Signs: Vital Signs Temperature 97.5 F L 10/15/21 13:10 Pulse Rate 89 10/15/21 13:10 Respiratory Rate 14 10/15/21 13:10 Blood Pressure 135/64 10/15/21 13:10 Pulse Oximetry 98 10/15/21 13:10 Const General: cooperative, healthy appearing, comfortable and well developed Nutritional Appearance: average body habitus, well nourished and cachectic Orientation: Orientation [facility] Head: normal to inspection and normocephalic Ears: hearing grossly normal bilaterally Nose: external nose normal Resp Effort & Inspection: normal respiratory effort and able to speak in complete sentences Auscultation: clear to auscultation bilaterally and abnormal I/E ratio Cardio Rhythm: regular rhythm Heart Sounds: S1 normal and S2 normal Neuro General: patient alert, patient awake, patient oriented x3 and CN's II-XI intact bilaterally <Jordin Mares DO - Last Filed: 10/17/21 07:04> Initial Vital Signs Initial Vital Signs: Vital Signs Temperature 97.5 F L 10/15/21 13:10 Pulse Rate 89 10/15/21 13:10 Respiratory Rate 14 10/15/21 13:10 Blood Pressure 135/64 10/15/21 13:10 Pulse Oximetry 98 10/15/21 13:10 Course <Roman Cooney PA-C - Last Filed: 10/15/21 15:17> Orders Ordered: ED Orders 10/15/21 14:25 UA Complete [Urinalysis and Microscopic] Stat Urine Culture Stat Vital Signs Vital signs: Vital Signs - 8 hr 10/15/21 13:10 Temperature 97.5 F L Pulse Rate 89 Respiratory Rate 14 Blood Pressure 135/64 Pulse Oximetry 98 <Jordin Mares DO - Last Filed: 10/17/21 07:04> Orders Ordered: ED Orders 10/15/21 14:25 UA Complete [Urinalysis and Microscopic] Stat Urine Culture Stat Vital Signs Vital signs: Vital Signs - 8 hr 10/15/21 13:10 Temperature 97.5 F L Pulse Rate 89 Respiratory Rate 14 Blood Pressure 135/64 Pulse Oximetry 98 MDM - Female Genitourinary <ANA Funez Last Filed: 10/15/21 15:17> Differential Diagnosis Differential diagnosis: Likely urinary tract infection Lab Data Labs: Lab Results 10/15/21 Range/Units 14:25 Urine Color Yellow Urine Appearance Cloudy Urine pH 6.5 (4.5-8.0) Ur Specific [place] 1.015 (1.000-1.035) Urine Protein 2+ H (Negative) Urine Glucose (UA) Negative (Negative) g/dL Urine Ketones Trace H (NEGATIVE) Urine Occult Blood 3+ H (Negative) Urine Nitrate Positive H (Negative) Urine Bilirubin Negative (NEGATIVE) Urine Urobilinogen 0.2 (0.2) E.U./dL Ur Leukocyte Esterase 3+ H (NEGATIVE) Urine RBC 1-5/hpf (0-5/HPF) Urine WBC >100/hpf H (0-5/HPF) Urine Bacteria Many (>30) H (None) Ur Culture Indicated? Specimen cultured MDM Narrative Medical decision making narrative: Patient was evaluated today for complaints of dysuria and found to have a UTI. She was recently placed on Macrobid and due to the nature that seems ineffective to treating her symptoms going to change her antibiotic to ciprofloxacin for 10 days. Advised patient to notify her oncology physician of her change in antibiotic that she is currently being treated for breast cancer with chemotherapy. Patient will be discharged home and told to follow-up with oncology <Jordin Mares DO - Last Filed: 10/17/21 07:04> Lab Data Labs: Lab Results 10/15/21 Range/Units 14:25 Urine Color Yellow Urine Appearance Cloudy Urine pH 6.5 (4.5-8.0) Ur Specific [place] 1.015 (1.000-1.035) Urine Protein 2+ H (Negative) Urine Glucose (UA) Negative (Negative) g/dL Urine Ketones Trace H (NEGATIVE) Urine Occult Blood 3+ H (Negative) Urine Nitrate Positive H (Negative) Urine Bilirubin Negative (NEGATIVE) Urine Urobilinogen 0.2 (0.2) E.U./dL Ur Leukocyte Esterase 3+ H (NEGATIVE) Urine RBC 1-5/hpf (0-5/HPF) Urine WBC >100/hpf H (0-5/HPF) Urine Bacteria Many (>30) H (None) Ur Culture Indicated? Specimen cultured Discharge Plan Departure Patient Disposition: Home Clinical Impression: Urinary tract infection Instructions: DI for Urinary Tract Infection (UTI) Activity Restrictions/Additional Instructions: Your antibiotic and pain medication was sent to your pharmacy. Please take the antibiotic as directed until completely gone and notify your oncologist of the new prescriptions. He can return to the ED if your symptoms do not improve or you can contact your primary care doctor for further care evaluation. Prescriptions: New ciprofloxacin HCl 500 mg tablet 500 mg PO BID Qty: 14 0RF phenazopyridine [Pyridium] 100 mg tablet 100 mg PO TID PRN (Reason: pain) Qty: 9 0RF No Action phenazopyridine [Pyridium] 200 mg tablet 200 mg PO TID 0 Days Qty: 6 0RF multivitamin Tablet 1 tab PO DAILY Qty: 0 0RF aspirin [Aspirin Low Dose] 81 mg Tablet,Delayed Release (Dr/Ec) 81 mg PO DAILY Qty: 0 0RF ezetimibe 10 mg tablet See Rx Instructions .ROUTE .COMPLEX Qty: 90 2RF Dose Instruction: TAKE ONE TABLET BY MOUTH ONE TIME DAILY Rx Instructions: TAKE ONE TABLET BY MOUTH ONE TIME DAILY alendronate 35 mg tablet 35 mg PO QWEEK Qty: 12 3RF hydrocodone-acetaminophen 5-325 mg tablet 1 tab PO Q8H PRN (Reason: pain) Qty: 14 0RF losartan-hydrochlorothiazide 50-12.5 mg tablet See Rx Instructions .ROUTE .COMPLEX Qty: 90 0RF Dose Instruction: TAKE ONE TABLET BY MOUTH ONE TIME DAILY Rx Instructions: TAKE ONE TABLET BY MOUTH ONE TIME DAILY amlodipine 5 mg tablet 5 mg PO BID Qty: 180 3RF metformin 500 mg tablet 500 mg PO BID Qty: 60 2RF Rx Instructions: Start with 1 pill at dinner the 1st week then advanced to twice daily (DME) blood-glucose meter Misc See Rx Instructions .Route Qty: 1 0RF Rx Instructions: Check blood glucose BID (DME) Blood Glucose Test Strip See Rx Instructions .Route Qty: 50 6RF Rx Instructions: As directed (DME) lancets Misc See Rx Instructions .Route Qty: 200 0RF Rx Instructions: As directed acetaminophen [Tylenol Extra Strength] 500 mg tablet 500 mg PO Q6H PRN (Reason: Pain (Scale Score 1-3)) 0RF ondansetron 4 mg Tablet,Disintegrating 4 mg PO Q6H PRN (Reason: Nausea & Vomiting) Qty: 30 0RF prochlorperazine maleate [Compazine] 10 mg Tablet 10 mg PO Q6H PRN (Reason: Nausea And Vomiting) Qty: 30 0RF nystatin 100,000 unit/gram Powder 1 applic TOPICAL BID Qty: 60 0RF Rx Instructions: Apply to affected area twice daily. Topical use only. Referrals: Darion Clifford DO [Primary Care Provider] - <Jordin Mares DO - Last Filed: 10/17/21 07:04> [facility] I was immediately available in the department for consultation. This documentation has been reviewed and I agree with assessment and plan. Supervised by Jordin Mares DO
[2021-10-15 14:46] LABS: Appearance Urine UA CLOUDY; Bilirubin Urine UA NEGATIVE (NEGATIVE); Color Urine UA YELLOW; Glucose Urine UA NEGATIVE (Negative); Ketones Urine UA TRACE (NEGATIVE); Leukocyte Esterase Urine UA 3+ (NEGATIVE); Nitrite Urine UA POSITIVE (Negative); Occult Blood Urine UA 3+ (Negative); Protein Urine UA 2+ (Negative); Specific Gravity Urine UA 1.015 (1.000-1.035); Urobilinogen Urine UA 0.2 E.U./dL (0.2)
[2021-10-15 14:47] LABS: pH Urine UA 6.5 (4.5-8.0)
[2021-10-15 14:56] LABS: Bacteria Urine Many (>30); Culture Indicated Urine Specimen Cultured; RBC Urine 1-5/HPF (0-5/HPF); WBC Urine >100/HPF (0-5/HPF)
[2021-10-15 15:25] VITALS: BP 111/55; PULSE 80; RESP 16; O2SAT 98
== END 2021-10-15 15:26 | disposition home or self-care (01) ==
PROVIDERS: Emergency Provider Physician Assistant; PCP Family Medicine
DX: N39.0 Urinary tract infection, site not specified (principal)
CPT/HCPCS: 81001; 87077; 87086; 87186; 99281; 99282

== ENCOUNTER 2021-11-18 05:55 | Emergency (ER) | payer MEDICARE, SELFPAY ==
[2021-11-18] VITALS (9 sets, daily range): BP systolic 107–146; BP diastolic 52–63; PULSE 83–123; RESP 28; TEMP 36.8; O2SAT 96–98; BMI 29.8
--- NOTE | 2021-11-18 06:11 | ED.FEVER ---
HPI - Fever <Jordin Mares - Last Filed: 11/23/21 08:23> General Chief Complaint: Fever Stated Complaint: fever Time Seen by Provider: 11/18/21 06:02 History of Present Illness HPI Narrative: 80-year-old female nonsmoker with history of breast cancer on chemotherapy (treated locally with most recent chemo 11/16) presents with a chief complaint of fever throughout the night is high as 101. She has received 9 rounds of chemotherapy weekly and tends to feel rather weak and worn down the following day or 2 and reports frequent insomnia. She feels worn out and tired but denies much in the way of other symptoms other than fever, shaking chills and frequent urination. She has no chest pain or shortness of breath. She denies any nausea or vomiting. She denies any change in bowel habits. She has been on antibiotics for urinary tract infections off and on for about the past month including a 5 day course of Macrobid on 10/08 followed by a 10 day course of Cipro on 10/15 and recently another which is unknown at present. Cx thusfar have been pansensitive Related Data Home Medications Medication Instructions Recorded Confirmed aspirin 81 mg tablet,delayed 81 mg PO DAILY #0 12/01/10 11/19/21 release (Aspirin Low Dose) multivitamin 1 tab PO DAILY #0 12/01/10 11/19/21 acetaminophen 500 mg tablet 500 mg PO Q6H PRN 04/06/19 11/19/21 (Tylenol Extra Strength) Previous Rx's Medication Instructions Recorded amlodipine 5 mg tablet 5 mg PO BID #180 tab 09/16/20 alendronate 35 mg tablet 35 mg PO QWEEK #12 tab 07/20/21 ondansetron 4 mg disintegrating 4 mg PO Q6H PRN #30 tab 09/07/21 tablet prochlorperazine maleate 10 mg 10 mg PO Q6H PRN #30 tab 09/07/21 tablet (Compazine) nystatin 100,000 unit/gram topical 1 applic TOPICAL BID #60 applic 09/14/21 powder losartan 50 mg-hydrochlorothiazide See Rx Instructions .ROUTE 09/22/21 12.5 mg tablet .COMPLEX #90 tab blood sugar diagnostic (Blood #50 ea 10/06/21 Glucose Test) blood-glucose meter #1 ea 10/06/21 lancets #200 ea 10/06/21 metformin 500 mg tablet 500 mg PO BID #60 tab 10/06/21 phenazopyridine 200 mg tablet 200 mg PO TID 0 Days #6 tab 10/08/21 (Pyridium) phenazopyridine 100 mg tablet 100 mg PO TID PRN #9 tab 10/15/21 (Pyridium) ezetimibe 10 mg tablet See Rx Instructions .ROUTE 10/26/21 .COMPLEX #90 tab lidocaine-prilocaine 2.5 %-2.5 % 1 applic TOPICAL PRN PRN #30 g 10/26/21 topical cream Allergies Allergy/AdvReac Type Severity Reaction Status Date / Time No Known Drug Allergies Allergy Verified 10/15/21 13:19 Review of Systems <Jordin Mares DO - Last Filed: 11/23/21 08:23> Review of Systems Narrative: GENERAL: See HPI HEENT: Denies sinus pain, ear pain, sore throat, difficulty swallowing, dizziness. RESPIRATORY: Denies dyspnea, cough, wheezing, hemoptysis, sputum. CARDIOVASCULAR: Denies chest pain, palpitations, orthopnea, edema, GASTROINTESTINAL: Denies nausea, vomiting, abdominal pain, diarrhea, constipation, melena. : See HPI MUSCULOSKELETAL: denies weakness, joint pain, or bony pain SKIN: Denies rash, skin lesions, or other NEUROLOGIC: Denies weakness, headache, numbness, change in speech, confusion, seizures, incoordination. PSYCHIATRIC: No concerning psychosocial issues. 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 Right hip pain Splenomegaly Strain of tendon of left rotator cuff Surgical History H/O right wrist surgery History of carpal tunnel release (Unknown) History of partial mastectomy of left breast (07/29/21) History of surgery Hx of appendectomy (Unknown) Hx of cataract surgery (Unknown) Hx of cholecystectomy Hx of eye surgery Status post cholecystectomy Family History Father Cancer Mother Cancer Social History household members: family Smoking Status: Never smoker alcohol intake: never substance use type: does not use Smoking Status: Never smoker alcohol intake frequency: 0-2 drinks per day Substance Use Type: does not use Exam <Jordin Mares DO - Last Filed: 11/23/21 08:23> Narrative Exam Narrative: GENERAL: [80] year old patient appears stated age. Well-developed patient, in mild distress. HEAD: Atraumatic. Normocephalic. EYES: Pupils equal round and reactive. Extraocular motions intact. No scleral icterus. No injection or drainage. ENT: Nose without bleeding, purulent drainage. Throat without erythema, tonsillar hypertrophy or exudate. Airway patent. NECK: Trachea midline. Non tender CARDIOVASCULAR: Tachycardic regular rhythm without murmurs, gallops, or rubs. RESPIRATORY: Clear to auscultation. Breath sounds equal bilaterally. No wheezes, rales, or rhonchi. GASTROINTESTINAL: Abdomen soft, non-tender, nondistended. EXTREMITIES: No edema or joint tenderness. BACK: Nontender without deformity or crepitance. No flank tenderness. NEURO: AOx3. SKIN: No rash or erythema of visible areas Initial Vital Signs Initial Vital Signs: Vital Signs Temperature 98.2 F 11/18/21 05:55 Pulse Rate 123 H 11/18/21 05:55 Respiratory Rate 28 H 11/18/21 05:55 Blood Pressure 146/63 H 11/18/21 05:55 Pulse Oximetry 98 11/18/21 05:55 <Shantanu Myers MD - Last Filed: 11/18/21 09:44> Initial Vital Signs Initial Vital Signs: Vital Signs Temperature 98.2 F 11/18/21 05:55 Pulse Rate 123 H 11/18/21 05:55 Respiratory Rate 28 H 11/18/21 05:55 Blood Pressure 146/63 H 11/18/21 05:55 Pulse Oximetry 98 11/18/21 05:55 Course <Jordin Mares DO - Last Filed: 11/23/21 08:23> Orders Ordered: Discontinued Medications Heparin Sodium (Porcine) (Heparin 500 Unit/5 Ml Port Flush) 500 unit IV PRN PRN PRN Reason: Flush Sodium Chloride (Normal Saline 0.9%) 2,517.45 mls @ 839.15 mls/hr 30 ml/kg infuse over 3 hr (2517.45 ml) IV NOW ONE Stop: 11/18/21 09:42 Last Infusion: 11/18/21 09:58 Dose: 0 mls/hr Documented by: Admin: 11/18/21 06:51 Dose: 839.15 mls/hr Documented by: ЕЛЕНА Piperacillin Sod/Tazobactam (Sod 4.5 gm/ Sodium Chloride) 100 mls @ 200 mls/hr IV NOW ONE Stop: 11/18/21 06:54 Last Infusion: 11/18/21 09:08 Dose: 0 mls/hr Documented by: Admin: 11/18/21 08:06 Dose: 200 mls/hr Documented by: DASHAWN Vital Signs Vital signs: Vital Signs - 8 hr 11/18/21 05:55 Temperature 98.2 F Pulse Rate 123 H Respiratory Rate 28 H Blood Pressure 146/63 H Pulse Oximetry 98 <Shantanu Myers MD - Last Filed: 11/18/21 09:44> Course Course Narrative: Care was assumed from Dr. Mares. at change of shift. The patient is currently being treated for breast cancer. In the past she has had neutropenia. She arrived with shakes and chills. She was diagnosed with an E coli UTI 10/10/2021. She was initially treated with Macrobid, she was seen again earlier this month with UTI symptoms and changed to Cipro. The urine culture associated with that visit was no growth. Today she receives Zosyn, concern for neutropenia and sepsis. She has no fever, WBC count is 5.7. She finished her recent prescription for Cipro. I have examined her myself, she has no obvious respiratory source of infection. Abdominal exam was benign, she has no CVAT. CT was obtained due to the hematuria. Thickening of the bladder was noted, there is no other urinary source for hematuria. There is no abdominal findings suggestive of an infective process. She is feeling much better at the time of disposition. She was discharged home with advice to recheck with her doctor later this week.- Jan RUDD 09:30 11/18/21. Orders Ordered: Discontinued Medications Heparin Sodium (Porcine) (Heparin 500 Unit/5 Ml Port Flush) 500 unit IV PRN PRN PRN Reason: Flush Sodium Chloride (Normal Saline 0.9%) 2,517.45 mls @ 839.15 mls/hr 30 ml/kg infuse over 3 hr (2517.45 ml) IV NOW ONE Stop: 11/18/21 09:42 Last Infusion: 11/18/21 09:58 Dose: 0 mls/hr Documented by: Admin: 11/18/21 06:51 Dose: 839.15 mls/hr Documented by: ЕЛЕНА Piperacillin Sod/Tazobactam (Sod 4.5 gm/ Sodium Chloride) 100 mls @ 200 mls/hr IV NOW ONE Stop: 11/18/21 06:54 Last Infusion: 11/18/21 09:08 Dose: 0 mls/hr Documented by: Admin: 11/18/21 08:06 Dose: 200 mls/hr Documented by: DASHAWN Vital Signs Vital signs: Vital Signs - 8 hr 11/18/21 05:55 Temperature 98.2 F Pulse Rate 123 H Respiratory Rate 28 H Blood Pressure 146/63 H Pulse Oximetry 98 MDM - Fever <Jordin Mares DO - Last Filed: 11/23/21 08:23> Lab Data Result diagrams: 11/18/21 06:25 11/18/21 06:25 Labs: Lab Results 11/18/21 11/18/21 11/18/21 Range/Units 06:25 06:25 06:25 WBC 6.7 D (4.5-11.0) X10^3/uL RBC 3.10 L (4.0-5.2) X10^6/uL Hgb 9.9 L (12.0-16.0) g/dL Hct 29.3 L (36-46) % MCV 94.5 (80-100) fL MCH 32.1 (26-34) PG MCHC 33.9 (30-36) % RDW 16.5 H (11.6-14.8) % Plt Count 81 L (150-400) X10^3/uL Neut % (Auto) 87.8 H (50-75) % Lymph % (Auto) 8.0 L (25-40) % [place] % (Auto) 3.3 (3-14) % Eos % (Auto) 0.4 L (2-4) % Baso % (Auto) 0.5 (0-2) % Neut # (Auto) 5900 (6292-2545) /uL Lymph # (Auto) 500 L (9345-2170) /uL [place] # (Auto) 200 (0-900) /uL Eos # (Auto) 0 (0-450) /uL Baso # (Auto) 0 (0-100) /uL Sodium 139 (137-145) mmol/L Potassium 3.7 (3.4-5.1) mmol/L Chloride 107 (98-107) mmol/L Carbon Dioxide 26 (22-32) mmol/L BUN 21 H (7-17) mg/dL Creatinine 0.67 (0.52-1.04) mg/dL Estimated GFR > 60 (>60) mL/min BUN/Creatinine Ratio 31.3 H (6-22) Glucose 139 H (80-110) mg/dL Lactate (0.7-2.1) mmol/L Calcium 8.6 (8.4-10.2) mg/dL Total Bilirubin 0.9 (0.2-1.3) mg/dL AST 42 H (14-36) IU/L ALT 32 (<35) IU/L Alkaline Phosphatase 134 H (38-126) U/L Total Creatine Kinase 30 (30-135) U/L CK-MB (CK-2) TNP CK-MB (CK-2) Rel Index TNP Troponin I < 0.012 (0.01-0.034) ng/mL NT-Pro-B Natriuret Pep 376 (<450) pg/mL Total Protein 6.6 (6.3-8.2) g/dL Albumin 3.5 (3.5-5.0) g/dL Globulin 3.1 (1.7-4.1) g/dL Albumin/Globulin Ratio 1.1 (1.0-2.8) Procalcitonin 0.18 (<0.5) ng/mL Urine Color Urine Appearance Urine pH (4.5-8.0) Ur Specific [place] (1.000-1.035) Urine Protein (Negative) Urine Glucose (UA) (Negative) g/dL Urine Ketones (NEGATIVE) Urine Occult Blood (Negative) Urine Nitrate (Negative) Urine Bilirubin (NEGATIVE) Ur Bilirubin Confirm (Negative) Urine Urobilinogen (0.2) E.U./dL Ur Leukocyte Esterase (NEGATIVE) Urine RBC (0-5/HPF) Urine WBC (0-5/HPF) Urine Bacteria (None) Ur Culture Indicated? A. baumannii (PCR) (Not Detect) Chlamy pneumoniae PCR (Not Detect) Adenovirus (PCR) (Not Detect) B. pertussis DNA (PCR) (Not Detecte) B.parapertussis DNA PCR (Not Detecte) Yany albicans (PCR) (Not Detect) C. glabrata (PCR) (Not Detect) C. krusei (PCR) (Not Detect) C. parapsilosis (PCR) (Not Detect) C. tropicalis (PCR) (Not Detect) Coronavirus OC43 (PCR) (Not Detect) Coronavirus HKU1 (PCR) (Not Detect) Coronavirus 229E (PCR) (Not Detect) SARS-CoV-2 (PCR) (Not Detecte) Coronavirus NL63 (PCR) (Not Detect) Enterobacteriac sp PCR (Not Detect) E. cloacae complex PCR (Not Detect) Enterococcus sp PCR (Not Detect) E. coli (PCR) (Not Detect) H. influenzae (PCR) (Not Detect) Human Metapneumovir PCR (Not Detect) Influenza Type A (PCR) (Not Detect) Influenza Type B (PCR) (Not Detect) Klebsiella oxytoca PCR (Not Detect) Klebsiella pneumoniae (Not Detect) List. monocytogenes PCR (Not Detect) M. pneumoniae (PCR) (Not Detect) N. meningitidis (PCR) (Not Detect) Parainfluenza 1 (PCR) (Not Detect) Parainfluenza 2 (PCR) (Not Detect) Parainfluenza 3 (PCR) (Not Detect) Parainfluenza 4 (PCR) (Not Detect) Proteus species (PCR) (Not Detect) RSV (PCR) (Not Detect) Entero/Rhino (PCR) (Not Detect) Serratia marcescens PCR (Not Detect) Staphylococcus sp PCR (Not Detect) Staph aureus (PCR) (Not Detect) mecA-Methicil Res Gene Streptococcus sp PCR (Not Detect) Group A Strep (PCR) (Not Detect) Strep agalactiae (PCR) (Not Detect) Strep pneumoniae (PCR) (Not Detect) P. aeruginosa (PCR) (Not Detect) Tatyana/B-Vanco Res Genes KPC-Carbap Res Gene PCR 11/18/21 11/18/21 11/18/21 Range/Units 06:25 06:25 07:08 WBC (4.5-11.0) X10^3/uL RBC (4.0-5.2) X10^6/uL Hgb (12.0-16.0) g/dL Hct (36-46) % MCV (80-100) fL MCH (26-34) PG MCHC (30-36) % RDW (11.6-14.8) % Plt Count (150-400) X10^3/uL Neut % (Auto) (50-75) % Lymph % (Auto) (25-40) % [place] % (Auto) (3-14) % Eos % (Auto) (2-4) % Baso % (Auto) (0-2) % Neut # (Auto) (0496-9312) /uL Lymph # (Auto) (6790-0141) /uL [place] # (Auto) (0-900) /uL Eos # (Auto) (0-450) /uL Baso # (Auto) (0-100) /uL Sodium (137-145) mmol/L Potassium (3.4-5.1) mmol/L Chloride (98-107) mmol/L Carbon Dioxide (22-32) mmol/L BUN (7-17) mg/dL Creatinine (0.52-1.04) mg/dL Estimated GFR (>60) mL/min BUN/Creatinine Ratio (6-22) Glucose (80-110) mg/dL Lactate 2.1 (0.7-2.1) mmol/L Calcium (8.4-10.2) mg/dL Total Bilirubin (0.2-1.3) mg/dL AST (14-36) IU/L ALT (<35) IU/L Alkaline Phosphatase (38-126) U/L Total Creatine Kinase (30-135) U/L CK-MB (CK-2) CK-MB (CK-2) Rel Index Troponin I (0.01-0.034) ng/mL NT-Pro-B Natriuret Pep (<450) pg/mL Total Protein (6.3-8.2) g/dL Albumin (3.5-5.0) g/dL Globulin (1.7-4.1) g/dL Albumin/Globulin Ratio (1.0-2.8) Procalcitonin (<0.5) ng/mL Urine Color Urine Appearance Urine pH (4.5-8.0) Ur Specific [place] (1.000-1.035) Urine Protein (Negative) Urine Glucose (UA) (Negative) g/dL Urine Ketones (NEGATIVE) Urine Occult Blood (Negative) Urine Nitrate (Negative) Urine Bilirubin (NEGATIVE) Ur Bilirubin Confirm (Negative) Urine Urobilinogen (0.2) E.U./dL Ur Leukocyte Esterase (NEGATIVE) Urine RBC (0-5/HPF) Urine WBC (0-5/HPF) Urine Bacteria (None) Ur Culture Indicated? A. baumannii (PCR) Not detected (Not Detect) Chlamy pneumoniae PCR Not detected (Not Detect) Adenovirus (PCR) Not detected (Not Detect) B. pertussis DNA (PCR) Not detected (Not Detecte) B.parapertussis DNA PCR Not detected (Not Detecte) Yany albicans (PCR) Not detected (Not Detect) C. glabrata (PCR) Not detected (Not Detect) C. krusei (PCR) Not detected (Not Detect) C. parapsilosis (PCR) Not detected (Not Detect) C. tropicalis (PCR) Not detected (Not Detect) Coronavirus OC43 (PCR) Not detected (Not Detect) Coronavirus HKU1 (PCR) Not detected (Not Detect) Coronavirus 229E (PCR) Not detected (Not Detect) SARS-CoV-2 (PCR) Not detected (Not Detecte) Coronavirus NL63 (PCR) Not detected (Not Detect) Enterobacteriac sp PCR Not detected (Not Detect) E. cloacae complex PCR Not detected (Not Detect) Enterococcus sp PCR Not detected (Not Detect) E. coli (PCR) Not detected (Not Detect) H. influenzae (PCR) Not detected (Not Detect) Human Metapneumovir PCR Not detected (Not Detect) Influenza Type A (PCR) Not detected (Not Detect) Influenza Type B (PCR) Not detected (Not Detect) Klebsiella oxytoca PCR Not detected (Not Detect) Klebsiella pneumoniae Not detected (Not Detect) List. monocytogenes PCR Not detected (Not Detect) M. pneumoniae (PCR) Not detected (Not Detect) N. meningitidis (PCR) Not detected (Not Detect) Parainfluenza 1 (PCR) Not detected (Not Detect) Parainfluenza 2 (PCR) Not detected (Not Detect) Parainfluenza 3 (PCR) Not detected (Not Detect) Parainfluenza 4 (PCR) Not detected (Not Detect) Proteus species (PCR) Not detected (Not Detect) RSV (PCR) Not detected (Not Detect) Entero/Rhino (PCR) Not detected (Not Detect) Serratia marcescens PCR Not detected (Not Detect) Staphylococcus sp PCR Not detected (Not Detect) Staph aureus (PCR) Not detected (Not Detect) mecA-Methicil Res Gene Not Reportable Streptococcus sp PCR Detected H (Not Detect) Group A Strep (PCR) Not detected (Not Detect) Strep agalactiae (PCR) Not detected (Not Detect) Strep pneumoniae (PCR) Not detected (Not Detect) P. aeruginosa (PCR) Not detected (Not Detect) Tatyana/B-Vanco Res Genes Not Reportable KPC-Carbap Res Gene PCR Not Reportable 11/18/21 11/18/21 Range/Units 08:10 09:21 WBC (4.5-11.0) X10^3/uL RBC (4.0-5.2) X10^6/uL Hgb (12.0-16.0) g/dL Hct (36-46) % MCV (80-100) fL MCH (26-34) PG MCHC (30-36) % RDW (11.6-14.8) % Plt Count (150-400) X10^3/uL Neut % (Auto) (50-75) % Lymph % (Auto) (25-40) % [place] % (Auto) (3-14) % Eos % (Auto) (2-4) % Baso % (Auto) (0-2) % Neut # (Auto) (9210-3738) /uL Lymph # (Auto) (4755-6947) /uL [place] # (Auto) (0-900) /uL Eos # (Auto) (0-450) /uL Baso # (Auto) (0-100) /uL Sodium (137-145) mmol/L Potassium (3.4-5.1) mmol/L Chloride (98-107) mmol/L Carbon Dioxide (22-32) mmol/L BUN (7-17) mg/dL Creatinine (0.52-1.04) mg/dL Estimated GFR (>60) mL/min BUN/Creatinine Ratio (6-22) Glucose (80-110) mg/dL Lactate 2.0 (0.7-2.1) mmol/L Calcium (8.4-10.2) mg/dL Total Bilirubin (0.2-1.3) mg/dL AST (14-36) IU/L ALT (<35) IU/L Alkaline Phosphatase (38-126) U/L Total Creatine Kinase (30-135) U/L CK-MB (CK-2) CK-MB (CK-2) Rel Index Troponin I (0.01-0.034) ng/mL NT-Pro-B Natriuret Pep (<450) pg/mL Total Protein (6.3-8.2) g/dL Albumin (3.5-5.0) g/dL Globulin (1.7-4.1) g/dL Albumin/Globulin Ratio (1.0-2.8) Procalcitonin (<0.5) ng/mL Urine Color Yellow Urine Appearance Sl cloudy Urine pH 6.0 (4.5-8.0) Ur Specific [place] 1.010 (1.000-1.035) Urine Protein 2+ H (Negative) Urine Glucose (UA) Negative (Negative) g/dL Urine Ketones Negative (NEGATIVE) Urine Occult Blood 3+ H (Negative) Urine Nitrate Negative (Negative) Urine Bilirubin 1+ H (NEGATIVE) Ur Bilirubin Confirm Negative (Negative) Urine Urobilinogen 0.2 (0.2) E.U./dL Ur Leukocyte Esterase Negative (NEGATIVE) Urine RBC 10-30/hpf H (0-5/HPF) Urine WBC None seen (0-5/HPF) Urine Bacteria None seen (None) Ur Culture Indicated? Cult not indicated A. baumannii (PCR) (Not Detect) Chlamy pneumoniae PCR (Not Detect) Adenovirus (PCR) (Not Detect) B. pertussis DNA (PCR) (Not Detecte) B.parapertussis DNA PCR (Not Detecte) Yany albicans (PCR) (Not Detect) C. glabrata (PCR) (Not Detect) C. krusei (PCR) (Not Detect) C. parapsilosis (PCR) (Not Detect) C. tropicalis (PCR) (Not Detect) Coronavirus OC43 (PCR) (Not Detect) Coronavirus HKU1 (PCR) (Not Detect) Coronavirus 229E (PCR) (Not Detect) SARS-CoV-2 (PCR) (Not Detecte) Coronavirus NL63 (PCR) (Not Detect) Enterobacteriac sp PCR (Not Detect) E. cloacae complex PCR (Not Detect) Enterococcus sp PCR (Not Detect) E. coli (PCR) (Not Detect) H. influenzae (PCR) (Not Detect) Human Metapneumovir PCR (Not Detect) Influenza Type A (PCR) (Not Detect) Influenza Type B (PCR) (Not Detect) Klebsiella oxytoca PCR (Not Detect) Klebsiella pneumoniae (Not Detect) List. monocytogenes PCR (Not Detect) M. pneumoniae (PCR) (Not Detect) N. meningitidis (PCR) (Not Detect) Parainfluenza 1 (PCR) (Not Detect) Parainfluenza 2 (PCR) (Not Detect) Parainfluenza 3 (PCR) (Not Detect) Parainfluenza 4 (PCR) (Not Detect) Proteus species (PCR) (Not Detect) RSV (PCR) (Not Detect) Entero/Rhino (PCR) (Not Detect) Serratia marcescens PCR (Not Detect) Staphylococcus sp PCR (Not Detect) Staph aureus (PCR) (Not Detect) mecA-Methicil Res Gene Streptococcus sp PCR (Not Detect) Group A Strep (PCR) (Not Detect) Strep agalactiae (PCR) (Not Detect) Strep pneumoniae (PCR) (Not Detect) P. aeruginosa (PCR) (Not Detect) Tatyana/B-Vanco Res Genes KPC-Carbap Res Gene PCR Urine Dip Bedside Urine Glucose Negative Bedside Urine Bilirubin - Negative Bedside Urine Ketone - Negative Urine Specific [place] 1.015 Bedside Urine Occult Blood +++ Bedside Urine pH 6.0 Bedside Urine Protein ++ 100 Bedside Urine Urobilinogen 0.2 Bedside Urine Nitrite - Negative Bedside Urine Leukocytes - Negative Esterase <Shantanu Myers MD - Last Filed: 11/18/21 09:44> Lab Data Labs: Lab Results 11/18/21 11/18/21 11/18/21 Range/Units 06:25 06:25 06:25 WBC 6.7 D (4.5-11.0) X10^3/uL RBC 3.10 L (4.0-5.2) X10^6/uL Hgb 9.9 L (12.0-16.0) g/dL Hct 29.3 L (36-46) % MCV 94.5 (80-100) fL MCH 32.1 (26-34) PG MCHC 33.9 (30-36) % RDW 16.5 H (11.6-14.8) % Plt Count 81 L (150-400) X10^3/uL Neut % (Auto) 87.8 H (50-75) % Lymph % (Auto) 8.0 L (25-40) % [place] % (Auto) 3.3 (3-14) % Eos % (Auto) 0.4 L (2-4) % Baso % (Auto) 0.5 (0-2) % Neut # (Auto) 5900 (3829-1727) /uL Lymph # (Auto) 500 L (5301-7514) /uL [place] # (Auto) 200 (0-900) /uL Eos # (Auto) 0 (0-450) /uL Baso # (Auto) 0 (0-100) /uL Sodium 139 (137-145) mmol/L Potassium 3.7 (3.4-5.1) mmol/L Chloride 107 (98-107) mmol/L Carbon Dioxide 26 (22-32) mmol/L BUN 21 H (7-17) mg/dL Creatinine 0.67 (0.52-1.04) mg/dL Estimated GFR > 60 (>60) mL/min BUN/Creatinine Ratio 31.3 H (6-22) Glucose 139 H (80-110) mg/dL Lactate (0.7-2.1) mmol/L Calcium 8.6 (8.4-10.2) mg/dL Total Bilirubin 0.9 (0.2-1.3) mg/dL AST 42 H (14-36) IU/L ALT 32 (<35) IU/L Alkaline Phosphatase 134 H (38-126) U/L Total Creatine Kinase 30 (30-135) U/L CK-MB (CK-2) TNP CK-MB (CK-2) Rel Index TNP Troponin I < 0.012 (0.01-0.034) ng/mL NT-Pro-B Natriuret Pep 376 (<450) pg/mL Total Protein 6.6 (6.3-8.2) g/dL Albumin 3.5 (3.5-5.0) g/dL Globulin 3.1 (1.7-4.1) g/dL Albumin/Globulin Ratio 1.1 (1.0-2.8) Procalcitonin 0.18 (<0.5) ng/mL Urine Color Urine Appearance Urine pH (4.5-8.0) Ur Specific [place] (1.000-1.035) Urine Protein (Negative) Urine Glucose (UA) (Negative) g/dL Urine Ketones (NEGATIVE) Urine Occult Blood (Negative) Urine Nitrate (Negative) Urine Bilirubin (NEGATIVE) Ur Bilirubin Confirm (Negative) Urine Urobilinogen (0.2) E.U./dL Ur Leukocyte Esterase (NEGATIVE) Urine RBC (0-5/HPF) Urine WBC (0-5/HPF) Urine Bacteria (None) Ur Culture Indicated? A. baumannii (PCR) (Not Detect) Chlamy pneumoniae PCR (Not Detect) Adenovirus (PCR) (Not Detect) B. pertussis DNA (PCR) (Not Detecte) B.parapertussis DNA PCR (Not Detecte) Yany albicans (PCR) (Not Detect) C. glabrata (PCR) (Not Detect) C. krusei (PCR) (Not Detect) C. parapsilosis (PCR) (Not Detect) C. tropicalis (PCR) (Not Detect) Coronavirus OC43 (PCR) (Not Detect) Coronavirus HKU1 (PCR) (Not Detect) Coronavirus 229E (PCR) (Not Detect) SARS-CoV-2 (PCR) (Not Detecte) Coronavirus NL63 (PCR) (Not Detect) Enterobacteriac sp PCR (Not Detect) E. cloacae complex PCR (Not Detect) Enterococcus sp PCR (Not Detect) E. coli (PCR) (Not Detect) H. influenzae (PCR) (Not Detect) Human Metapneumovir PCR (Not Detect) Influenza Type A (PCR) (Not Detect) Influenza Type B (PCR) (Not Detect) Klebsiella oxytoca PCR (Not Detect) Klebsiella pneumoniae (Not Detect) List. monocytogenes PCR (Not Detect) M. pneumoniae (PCR) (Not Detect) N. meningitidis (PCR) (Not Detect) Parainfluenza 1 (PCR) (Not Detect) Parainfluenza 2 (PCR) (Not Detect) Parainfluenza 3 (PCR) (Not Detect) Parainfluenza 4 (PCR) (Not Detect) Proteus species (PCR) (Not Detect) RSV (PCR) (Not Detect) Entero/Rhino (PCR) (Not Detect) Serratia marcescens PCR (Not Detect) Staphylococcus sp PCR (Not Detect) Staph aureus (PCR) (Not Detect) mecA-Methicil Res Gene Streptococcus sp PCR (Not Detect) Group A Strep (PCR) (Not Detect) Strep agalactiae (PCR) (Not Detect) Strep pneumoniae (PCR) (Not Detect) P. aeruginosa (PCR) (Not Detect) Tatyana/B-Vanco Res Genes KPC-Carbap Res Gene PCR 11/18/21 11/18/21 11/18/21 Range/Units 06:25 06:25 07:08 WBC (4.5-11.0) X10^3/uL RBC (4.0-5.2) X10^6/uL Hgb (12.0-16.0) g/dL Hct (36-46) % MCV (80-100) fL MCH (26-34) PG MCHC (30-36) % RDW (11.6-14.8) % Plt Count (150-400) X10^3/uL Neut % (Auto) (50-75) % Lymph % (Auto) (25-40) % [place] % (Auto) (3-14) % Eos % (Auto) (2-4) % Baso % (Auto) (0-2) % Neut # (Auto) (7849-7955) /uL Lymph # (Auto) (0378-2709) /uL [place] # (Auto) (0-900) /uL Eos # (Auto) (0-450) /uL Baso # (Auto) (0-100) /uL Sodium (137-145) mmol/L Potassium (3.4-5.1) mmol/L Chloride (98-107) mmol/L Carbon Dioxide (22-32) mmol/L BUN (7-17) mg/dL Creatinine (0.52-1.04) mg/dL Estimated GFR (>60) mL/min BUN/Creatinine Ratio (6-22) Glucose (80-110) mg/dL Lactate 2.1 (0.7-2.1) mmol/L Calcium (8.4-10.2) mg/dL Total Bilirubin (0.2-1.3) mg/dL AST (14-36) IU/L ALT (<35) IU/L Alkaline Phosphatase (38-126) U/L Total Creatine Kinase (30-135) U/L CK-MB (CK-2) CK-MB (CK-2) Rel Index Troponin I (0.01-0.034) ng/mL NT-Pro-B Natriuret Pep (<450) pg/mL Total Protein (6.3-8.2) g/dL Albumin (3.5-5.0) g/dL Globulin (1.7-4.1) g/dL Albumin/Globulin Ratio (1.0-2.8) Procalcitonin (<0.5) ng/mL Urine Color Urine Appearance Urine pH (4.5-8.0) Ur Specific [place] (1.000-1.035) Urine Protein (Negative) Urine Glucose (UA) (Negative) g/dL Urine Ketones (NEGATIVE) Urine Occult Blood (Negative) Urine Nitrate (Negative) Urine Bilirubin (NEGATIVE) Ur Bilirubin Confirm (Negative) Urine Urobilinogen (0.2) E.U./dL Ur Leukocyte Esterase (NEGATIVE) Urine RBC (0-5/HPF) Urine WBC (0-5/HPF) Urine Bacteria (None) Ur Culture Indicated? A. baumannii (PCR) Not detected (Not Detect) Chlamy pneumoniae PCR Not detected (Not Detect) Adenovirus (PCR) Not detected (Not Detect) B. pertussis DNA (PCR) Not detected (Not Detecte) B.parapertussis DNA PCR Not detected (Not Detecte) Yany albicans (PCR) Not detected (Not Detect) C. glabrata (PCR) Not detected (Not Detect) C. krusei (PCR) Not detected (Not Detect) C. parapsilosis (PCR) Not detected (Not Detect) C. tropicalis (PCR) Not detected (Not Detect) Coronavirus OC43 (PCR) Not detected (Not Detect) Coronavirus HKU1 (PCR) Not detected (Not Detect) Coronavirus 229E (PCR) Not detected (Not Detect) SARS-CoV-2 (PCR) Not detected (Not Detecte) Coronavirus NL63 (PCR) Not detected (Not Detect) Enterobacteriac sp PCR Not detected (Not Detect) E. cloacae complex PCR Not detected (Not Detect) Enterococcus sp PCR Not detected (Not Detect) E. coli (PCR) Not detected (Not Detect) H. influenzae (PCR) Not detected (Not Detect) Human Metapneumovir PCR Not detected (Not Detect) Influenza Type A (PCR) Not detected (Not Detect) Influenza Type B (PCR) Not detected (Not Detect) Klebsiella oxytoca PCR Not detected (Not Detect) Klebsiella pneumoniae Not detected (Not Detect) List. monocytogenes PCR Not detected (Not Detect) M. pneumoniae (PCR) Not detected (Not Detect) N. meningitidis (PCR) Not detected (Not Detect) Parainfluenza 1 (PCR) Not detected (Not Detect) Parainfluenza 2 (PCR) Not detected (Not Detect) Parainfluenza 3 (PCR) Not detected (Not Detect) Parainfluenza 4 (PCR) Not detected (Not Detect) Proteus species (PCR) Not detected (Not Detect) RSV (PCR) Not detected (Not Detect) Entero/Rhino (PCR) Not detected (Not Detect) Serratia marcescens PCR Not detected (Not Detect) Staphylococcus sp PCR Not detected (Not Detect) Staph aureus (PCR) Not detected (Not Detect) mecA-Methicil Res Gene Not Reportable Streptococcus sp PCR Detected H (Not Detect) Group A Strep (PCR) Not detected (Not Detect) Strep agalactiae (PCR) Not detected (Not Detect) Strep pneumoniae (PCR) Not detected (Not Detect) P. aeruginosa (PCR) Not detected (Not Detect) Tatyana/B-Vanco Res Genes Not Reportable KPC-Carbap Res Gene PCR Not Reportable 11/18/21 11/18/21 Range/Units 08:10 09:21 WBC (4.5-11.0) X10^3/uL RBC (4.0-5.2) X10^6/uL Hgb (12.0-16.0) g/dL Hct (36-46) % MCV (80-100) fL MCH (26-34) PG MCHC (30-36) % RDW (11.6-14.8) % Plt Count (150-400) X10^3/uL Neut % (Auto) (50-75) % Lymph % (Auto) (25-40) % [place] % (Auto) (3-14) % Eos % (Auto) (2-4) % Baso % (Auto) (0-2) % Neut # (Auto) (4407-5378) /uL Lymph # (Auto) (7446-3618) /uL [place] # (Auto) (0-900) /uL Eos # (Auto) (0-450) /uL Baso # (Auto) (0-100) /uL Sodium (137-145) mmol/L Potassium (3.4-5.1) mmol/L Chloride (98-107) mmol/L Carbon Dioxide (22-32) mmol/L BUN (7-17) mg/dL Creatinine (0.52-1.04) mg/dL Estimated GFR (>60) mL/min BUN/Creatinine Ratio (6-22) Glucose (80-110) mg/dL Lactate 2.0 (0.7-2.1) mmol/L Calcium (8.4-10.2) mg/dL Total Bilirubin (0.2-1.3) mg/dL AST (14-36) IU/L ALT (<35) IU/L Alkaline Phosphatase (38-126) U/L Total Creatine Kinase (30-135) U/L CK-MB (CK-2) CK-MB (CK-2) Rel Index Troponin I (0.01-0.034) ng/mL NT-Pro-B Natriuret Pep (<450) pg/mL Total Protein (6.3-8.2) g/dL Albumin (3.5-5.0) g/dL Globulin (1.7-4.1) g/dL Albumin/Globulin Ratio (1.0-2.8) Procalcitonin (<0.5) ng/mL Urine Color Yellow Urine Appearance Sl cloudy Urine pH 6.0 (4.5-8.0) Ur Specific [place] 1.010 (1.000-1.035) Urine Protein 2+ H (Negative) Urine Glucose (UA) Negative (Negative) g/dL Urine Ketones Negative (NEGATIVE) Urine Occult Blood 3+ H (Negative) Urine Nitrate Negative (Negative) Urine Bilirubin 1+ H (NEGATIVE) Ur Bilirubin Confirm Negative (Negative) Urine Urobilinogen 0.2 (0.2) E.U./dL Ur Leukocyte Esterase Negative (NEGATIVE) Urine RBC 10-30/hpf H (0-5/HPF) Urine WBC None seen (0-5/HPF) Urine Bacteria None seen (None) Ur Culture Indicated? Cult not indicated A. baumannii (PCR) (Not Detect) Chlamy pneumoniae PCR (Not Detect) Adenovirus (PCR) (Not Detect) B. pertussis DNA (PCR) (Not Detecte) B.parapertussis DNA PCR (Not Detecte) Yany albicans (PCR) (Not Detect) C. glabrata (PCR) (Not Detect) C. krusei (PCR) (Not Detect) C. parapsilosis (PCR) (Not Detect) C. tropicalis (PCR) (Not Detect) Coronavirus OC43 (PCR) (Not Detect) Coronavirus HKU1 (PCR) (Not Detect) Coronavirus 229E (PCR) (Not Detect) SARS-CoV-2 (PCR) (Not Detecte) Coronavirus NL63 (PCR) (Not Detect) Enterobacteriac sp PCR (Not Detect) E. cloacae complex PCR (Not Detect) Enterococcus sp PCR (Not Detect) E. coli (PCR) (Not Detect) H. influenzae (PCR) (Not Detect) Human Metapneumovir PCR (Not Detect) Influenza Type A (PCR) (Not Detect) Influenza Type B (PCR) (Not Detect) Klebsiella oxytoca PCR (Not Detect) Klebsiella pneumoniae (Not Detect) List. monocytogenes PCR (Not Detect) M. pneumoniae (PCR) (Not Detect) N. meningitidis (PCR) (Not Detect) Parainfluenza 1 (PCR) (Not Detect) Parainfluenza 2 (PCR) (Not Detect) Parainfluenza 3 (PCR) (Not Detect) Parainfluenza 4 (PCR) (Not Detect) Proteus species (PCR) (Not Detect) RSV (PCR) (Not Detect) Entero/Rhino (PCR) (Not Detect) Serratia marcescens PCR (Not Detect) Staphylococcus sp PCR (Not Detect) Staph aureus (PCR) (Not Detect) mecA-Methicil Res Gene Streptococcus sp PCR (Not Detect) Group A Strep (PCR) (Not Detect) Strep agalactiae (PCR) (Not Detect) Strep pneumoniae (PCR) (Not Detect) P. aeruginosa (PCR) (Not Detect) Tatyana/B-Vanco Res Genes KPC-Carbap Res Gene PCR Urine Dip Bedside Urine Glucose Negative Bedside Urine Bilirubin - Negative Bedside Urine Ketone - Negative Urine Specific [place] 1.015 Bedside Urine Occult Blood +++ Bedside Urine pH 6.0 Bedside Urine Protein ++ 100 Bedside Urine Urobilinogen 0.2 Bedside Urine Nitrite - Negative Bedside Urine Leukocytes - Negative Esterase Imaging Data Chest x-ray: Radiologist's Impression: No acute findings CT scan - abdomen/pelvis: Radiologist's Impression: PROCEDURE:? CT KIDNEY URETER BLADDER (KUB) ? INDICATIONS:? Hematuria.? Currently under treatment for breast cancer. ? TECHNIQUE:? Axial sections were acquired from the lung bases to the pubic symphysis.? Coronal and sagittal reformats were performed.? For radiation dose reduction, the following was used: ?automated exposure control, adjustment of mA and/or kV according to patient size.? ? COMPARISON:? [facility], CT, CT ABDOMEN PELVIS W [facility], 07/11/2021, 18:32. ? FINDINGS:? Image quality:? Excellent.? ? Lung bases:? Unremarkable.? ? Heart:? No significant findings. ? URINARY: Right Kidney:? No stones or hydronephrosis. Right Ureter:? No hydroureter.? ? Left Kidney:? No stones or hydronephrosis. Left Ureter:? No hydroureter.? ? Bladder:? Bladder wall is mildly thickened, which may be secondary to underdistention or possibly cystitis. ? ABDOMEN: Liver:? Nodular liver surface is consistent with cirrhosis. Gallbladder:? Status post cholecystectomy. Biliary ducts:? Unremarkable.? ? Pancreas:? Unremarkable.? ? Spleen:? The spleen is enlarged, measuring 16.9 cm in anterior-posterior dimension. Adrenal Glands:? Unremarkable.? ? ? Stomach and Bowel:? Multiple diverticula are seen in the colon without signs of acute diverticulitis.? Postsurgical changes from prior appendectomy. Peritoneum:? A small amount of free fluid is seen in the abdomen and pelvis.? No pneumoperitoneum. ? Ventral Wall: ? No hernia.? Abdominal Nodes:? No enlarged retroperitoneal or mesenteric lymph nodes.? Vessels:? Aorta and inferior vena cava are normal in size.? The recanalized paraumbilical vein is present. ? PELVIS: Pelvic Organs:? Unremarkable.? ? Pelvic Nodes: Unremarkable. Miscellaneous: No inguinal hernias are seen. ? ? ? Bones:? No suspicious osteolytic or osteoblastic lesion. ? IMPRESSION:? 1. Mild bladder wall thickening may be secondary to underdistention or cystitis.? Recommend correlation with urinalysis.? No urinary tract calculus or hydronephrosis. 2. Colonic diverticulosis without signs of acute diverticulitis. 3. Hepatic cirrhosis with signs of portal hypertension including splenomegaly, small volume of ascites, and a recanalized paraumbilical vein. ? ? Dictated by: Oswaldo Carter M.D. on 11/18/2021 at 9:06 ? ? Approved by: Oswaldo Carter M.D. on 11/18/2021 at 9:15 ? ECG Data Attestation: I personally reviewed and interpreted this ECG as follows: (Normal sinus rhythm rate 90s. Normal intervals. No ectopy. No acute ST T wave changes.) Discharge Plan Departure Patient Disposition: Home Clinical Impression: Cystitis, acute hemorrhagic, Breast cancer Instructions: Acute Cystitis Activity Restrictions/Additional Instructions: Follow-up with your doctor later this week for repeat evaluation. I would advise urology evaluation. I will give you contact information for Dr. Alas. Call for an appointment. Return here as needed. Prescriptions: No Action phenazopyridine [Pyridium] 200 mg tablet 200 mg PO TID 0 Days Qty: 6 0RF multivitamin Tablet 1 tab PO DAILY Qty: 0 0RF aspirin [Aspirin Low Dose] 81 mg Tablet,Delayed Release (Dr/Ec) 81 mg PO DAILY Qty: 0 0RF alendronate 35 mg tablet 35 mg PO QWEEK Qty: 12 3RF losartan-hydrochlorothiazide 50-12.5 mg tablet See Rx Instructions .ROUTE .COMPLEX Qty: 90 0RF Dose Instruction: TAKE ONE TABLET BY MOUTH ONE TIME DAILY Rx Instructions: TAKE ONE TABLET BY MOUTH ONE TIME DAILY ezetimibe 10 mg tablet See Rx Instructions .ROUTE .COMPLEX Qty: 90 3RF Dose Instruction: TAKE ONE TABLET BY MOUTH ONE TIME DAILY Rx Instructions: TAKE ONE TABLET BY MOUTH ONE TIME DAILY amlodipine 5 mg tablet 5 mg PO BID Qty: 180 3RF metformin 500 mg tablet 500 mg PO BID Qty: 60 2RF Rx Instructions: Start with 1 pill at dinner the 1st week then advanced to twice daily (DME) blood-glucose meter Misc See Rx Instructions .Route Qty: 1 0RF Rx Instructions: Check blood glucose BID (DME) Blood Glucose Test Strip See Rx Instructions .Route Qty: 50 6RF Rx Instructions: As directed (DME) lancets Misc See Rx Instructions .Route Qty: 200 0RF Rx Instructions: As directed acetaminophen [Tylenol Extra Strength] 500 mg tablet 500 mg PO Q6H PRN (Reason: Pain (Scale Score 1-3)) 0RF ondansetron 4 mg Tablet,Disintegrating 4 mg PO Q6H PRN (Reason: Nausea & Vomiting) Qty: 30 0RF prochlorperazine maleate [Compazine] 10 mg Tablet 10 mg PO Q6H PRN (Reason: Nausea And Vomiting) Qty: 30 0RF nystatin 100,000 unit/gram Powder 1 applic TOPICAL BID Qty: 60 0RF Rx Instructions: Apply to affected area twice daily. Topical use only. lidocaine-prilocaine 2.5-2.5 % Cream 1 applic topical PRN PRN (Reason: Pain) Qty: 30 0RF Rx Instructions: Apply to the skin over the port at least 2 hrs before planned use of the port. Cover the cream with a small piece of plastic wrap and leave in place until the port is accessed. phenazopyridine [Pyridium] 100 mg tablet 100 mg PO TID PRN (Reason: pain) Qty: 9 0RF Referrals: Angelito Alas MD [Physician] - Darion Clifford DO [Primary Care Provider] -
--- NOTE | 2021-11-18 06:12 | DI.RAD.S_ITS ---
PROCEDURE: XR CHEST 1V INDICATIONS: sepsis, neutropenic fever TECHNIQUE: One view of the chest was acquired. COMPARISON: [facility], CT, CT CHEST WO CON, 10/05/2021, 10:24. [facility], CR, XR CHEST 1V, 08/26/2021, 9:25. FINDINGS: Surgical changes and devices: Right chest port is redemonstrated with catheter tip projecting over the superior cavoatrial junction. Lungs and pleura: Chronic interstitial markings redemonstrated bilaterally. No acute consolidation. No pleural effusions or pneumothorax. Mediastinum: Mediastinal contours appear normal. Heart size is mildly enlarged. Bones and chest wall: No suspicious bony lesions. Overlying soft tissues appear unremarkable. IMPRESSION: No acute cardiopulmonary abnormality. Mild cardiomegaly. There is no significant discrepancy when compared to the overnight preliminary report. Dictated by: Oswaldo Carter M.D. on 11/18/2021 at 8:15 Approved by: Oswaldo Carter M.D. on 11/18/2021 at 8:19
[2021-11-18] MEDS: LIDOCAINE 1% (PF) 2 ML (06:35)
[2021-11-18 06:36] LABS: Add Manual Diff / Slide Review NO; Basophils Absolute Auto 0 /uL (0-100); Basophils Percent Auto 0.5 % (0-2); Eosinophils Absolute Auto 0 /uL (0-450); Eosinophils Percent Auto 0.4 % (2-4); Hematocrit 29.3 % (36-46); Hemoglobin 9.9 g/dL (12.0-16.0); Lymphocytes Absolute Auto 500 /uL (1100-4500); Mean Corpuscular HGB Conc 33.9 % (30-36); Mean Corpuscular Hemoglobin 32.1 PG (26-34); Mean Corpuscular Volume 94.5 fL (80-100); Monocytes Absolute Auto 200 /uL (0-900); Monocytes Percent Auto 3.3 % (3-14); Neutrophils Absolute Auto 5900 /uL (1500-7000); Neutrophils Percent Auto 87.8 % (50-75); Platelet Count 81 X10^3/uL (150-400); Red Cell Distribution Width 16.5 % (11.6-14.8); White Blood Cell Count 6.7 X10^3/uL (4.5-11.0)
[2021-11-18 06:48] LABS: Lactate (Lactic Acid) 2.1 mmol/L (0.7-2.1)
[2021-11-18 06:49] LABS: Alanine Aminotransferase 32 IU/L (<35); Albumin 3.5 g/dL (3.5-5.0); Albumin Globulin Ratio 1.1 (1.0-2.8); Alkaline Phosphatase 134 U/L (38-126); Aspartate Aminotransferase 42 IU/L (14-36); BUN Creatinine Ratio 31.3 (6-22); Bilirubin Total 0.9 mg/dL (0.2-1.3); Blood Urea Nitrogen 21 mg/dL (7-17); Calcium 8.6 mg/dL (8.4-10.2); Carbon Dioxide 26 mmol/L (22-32); Chloride 107 mmol/L (98-107); Creatine Kinase 30 U/L (30-135); Estimated Glomerular Filt Rate > 60 mL/min (>60); Globulin 3.1 g/dL (1.7-4.1); Glucose 139 mg/dL (80-110); HEMOLYSIS < 15 (0-50); Potassium 3.7 mmol/L (3.4-5.1); Sodium 139 mmol/L (137-145); Total Protein 6.6 g/dL (6.3-8.2)
[2021-11-18] MEDS: SODIUM CHLORIDE 0.9% 2,517.45 ML 839.15 ML IV (06:51)
[2021-11-18 06:58] LABS: NT-proBNP (BNP-Adult 18+) 376 pg/mL (<450)
[2021-11-18 07:01] LABS: Troponin I < 0.012 ng/mL (0.01-0.034)
[2021-11-18 07:06] LABS: Procalcitonin 0.18 ng/mL (<0.5)
[2021-11-18 08:00] LABS: Adenovirus Not Detected (Not Detect); B. parapertussis Not Detected (Not Detecte); Bordetella pertussis Not Detected (Not Detecte); Chlamydophila pneumoniae Not Detected (Not Detect); Coronavirus 229E Not Detected (Not Detect); Coronavirus HKU1 Not Detected (Not Detect); Coronavirus NL 63 Not Detected (Not Detect); Coronavirus OC43 Not Detected (Not Detect); Human Metapneumovirus Not Detected (Not Detect); Human Rhinovirus/Enterovirus Not Detected (Not Detect); Influenza A Not Detected (Not Detect); Influenza B Not Detected (Not Detect); Mycoplasma pneumoniae Not Detected (Not Detect); Parainfluenza Virus 1 Not Detected (Not Detect); Parainfluenza Virus 2 Not Detected (Not Detect); Parainfluenza Virus 3 Not Detected (Not Detect); Parainfluenza Virus 4 Not Detected (Not Detect); Respiratory Syncytial Virus Not Detected (Not Detect); SARS- CoV-2 Not Detected (Not Detecte)
[2021-11-18] MEDS: PIPERACILLIN/TAZO 4.5 GM in SODIUM CHLORIDE 0.9% 100 ML 200 ML IV (08:06)
[2021-11-18 08:17] LABS: Appearance Urine UA SL CLOUDY; Bilirubin Urine UA 1+ (NEGATIVE); Color Urine UA YELLOW; Glucose Urine UA NEGATIVE (Negative); Ketones Urine UA NEGATIVE (NEGATIVE); Leukocyte Esterase Urine UA NEGATIVE (NEGATIVE); Nitrite Urine UA NEGATIVE (Negative); Occult Blood Urine UA 3+ (Negative); Protein Urine UA 2+ (Negative); Urobilinogen Urine UA 0.2 E.U./dL (0.2)
[2021-11-18 08:22] LABS: Ictotest Urine Negative (Negative)
[2021-11-18 08:23] LABS: Bacteria Urine None Seen; Culture Indicated Urine Cult Not Indicated; RBC Urine 10-30/HPF (0-5/HPF); WBC Urine None Seen (0-5/HPF)
[2021-11-18 08:31] LABS: Reflexed Lactate in 2 Hours Y
--- NOTE | 2021-11-18 08:36 | DI.CT.S_ITS ---
PROCEDURE: CT KIDNEY URETER BLADDER (KUB) INDICATIONS: Hematuria. Currently under treatment for breast cancer. TECHNIQUE: Axial sections were acquired from the lung bases to the pubic symphysis. Coronal and sagittal reformats were performed. For radiation dose reduction, the following was used: automated exposure control, adjustment of mA and/or kV according to patient size. COMPARISON: [facility], CT, CT ABDOMEN PELVIS W CON, 07/11/2021, 18:32. FINDINGS: Image quality: Excellent. Lung bases: Unremarkable. Heart: No significant findings. URINARY: Right Kidney: No stones or hydronephrosis. Right Ureter: No hydroureter. Left Kidney: No stones or hydronephrosis. Left Ureter: No hydroureter. Bladder: Bladder wall is mildly thickened, which may be secondary to underdistention or possibly cystitis. ABDOMEN: Liver: Nodular liver surface is consistent with cirrhosis. Gallbladder: Status post cholecystectomy. Biliary ducts: Unremarkable. Pancreas: Unremarkable. Spleen: The spleen is enlarged, measuring 16.9 cm in anterior-posterior dimension. Adrenal Glands: Unremarkable. Stomach and Bowel: Multiple diverticula are seen in the colon without signs of acute diverticulitis. Postsurgical changes from prior appendectomy. Peritoneum: A small amount of free fluid is seen in the abdomen and pelvis. No pneumoperitoneum. Ventral Wall: No hernia. Abdominal Nodes: No enlarged retroperitoneal or mesenteric lymph nodes. Vessels: Aorta and inferior vena cava are normal in size. The recanalized paraumbilical vein is present. PELVIS: Pelvic Organs: Unremarkable. Pelvic Nodes: Unremarkable. Miscellaneous: No inguinal hernias are seen. Bones: No suspicious osteolytic or osteoblastic lesion. IMPRESSION: 1. Mild bladder wall thickening may be secondary to underdistention or cystitis. Recommend correlation with urinalysis. No urinary tract calculus or hydronephrosis. 2. Colonic diverticulosis without signs of acute diverticulitis. 3. Hepatic cirrhosis with signs of portal hypertension including splenomegaly, small volume of ascites, and a recanalized paraumbilical vein. Dictated by: Oswaldo Carter M.D. on 11/18/2021 at 9:06 Approved by: Oswaldo Carter M.D. on 11/18/2021 at 9:15
[2021-11-18 21:50] LABS: Acinetobacter baumannii Not Detected (Not Detect); Candida albicans Not Detected (Not Detect); Candida glabrata Not Detected (Not Detect); Candida krusei Not Detected (Not Detect); Candida parapsilosis Not Detected (Not Detect); Candida tropicalis Not Detected (Not Detect); E. coli Not Detected (Not Detect); Enterobacter cloacae complex Not Detected (Not Detect); Enterobacteriaceae species Not Detected (Not Detect); Enterococcus species Not Detected (Not Detect); Haemophilus influenzae Not Detected (Not Detect); Listeria monocytogenes Not Detected (Not Detect); Neisseria meningitidis Not Detected (Not Detect); Proteus species Not Detected (Not Detect); Pseudomonas aeruginosa Not Detected (Not Detect); Serratia marcescens Not Detected (Not Detect); Staphylococcus species Not Detected (Not Detect); Streptococcus agalactiae (Gr B Not Detected (Not Detect); Streptococcus pneumonia Not Detected (Not Detect); Streptococcus pyogenes (Gr A) Not Detected (Not Detect); Streptococcus species Detected (Not Detect)
== END 2021-11-18 10:27 | disposition home or self-care (01) ==
PROVIDERS: Emergency Provider Emergency Medicine; PCP Family Medicine
DX: N30.01 Acute cystitis with hematuria (principal); C50.412 Malignant neoplasm of upper-outer quadrant of left female breast
CPT/HCPCS: 36415; 71045; 74176; 80053; 81001; 81003; 82550; 83605; 83880; 84145; 84484; 85025; 87040; 87150; 87205; 87633; 93005; J1642; J2543

== ENCOUNTER 2021-11-18 19:19 | Inpatient (IN) | payer MEDICARE, SELFPAY ==
[2021-11-18] VITALS (8 sets, daily range): BP systolic 131–149; BP diastolic 60–90; PULSE 97–104; RESP 20–24; TEMP 37.5–38.4; O2SAT 96–97; BMI 29.8
--- NOTE | 2021-11-18 21:02 | DI.RAD.S_ITS ---
PROCEDURE: XR CHEST 1V INDICATIONS: eval for PNA TECHNIQUE: One view of the chest was acquired. COMPARISON: [facility], CT, CT KIDNEY URETER BLADDER (KUB), 11/18/2021, 8:43. [facility], CR, XR CHEST 1V, 11/18/2021, 6:29. [facility], CR, XR CHEST 1V, 08/26/2021, 9:25. FINDINGS: Surgical changes and devices: Right-sided port with the catheter tip in the right atrium. Lungs and pleura: Trace opacity at the left costophrenic angle. No pleural effusions or pneumothorax. Mediastinum: Mediastinal contours appear unchanged. Heart size is at the upper limits of normal. Bones and chest wall: No suspicious bony lesions. Overlying soft tissues appear unremarkable. IMPRESSION: Trace opacity at the left costophrenic angle. This could be due to atelectasis or pneumonia. Dictated by: Isaiah Pérez M.D. on 11/18/2021 at 22:34 Approved by: Isaiah Pérez M.D. on 11/18/2021 at 22:35
[2021-11-18 21:07] LABS: Add Manual Diff / Slide Review NO; Basophils Absolute Auto 0 /uL (0-100); Basophils Percent Auto 0.4 % (0-2); Eosinophils Absolute Auto 0 /uL (0-450); Eosinophils Percent Auto 0.9 % (2-4); Hematocrit 30.9 % (36-46); Hemoglobin 10.3 g/dL (12.0-16.0); Lymphocytes Absolute Auto 400 /uL (1100-4500); Lymphocytes Percent Auto 9.8 % (25-40); Mean Corpuscular HGB Conc 33.5 % (30-36); Mean Corpuscular Hemoglobin 31.8 PG (26-34); Monocytes Absolute Auto 100 /uL (0-900); Monocytes Percent Auto 3.3 % (3-14); Neutrophils Absolute Auto 3600 /uL (1500-7000); Neutrophils Percent Auto 85.6 % (50-75); Platelet Count 77 X10^3/uL (150-400); Red Blood Cell Count 3.26 X10^6/uL (4.0-5.2); Red Cell Distribution Width 16.7 % (11.6-14.8); White Blood Cell Count 4.2 X10^3/uL (4.5-11.0)
[2021-11-18 21:13] LABS: Lactate (Lactic Acid) 2.1 mmol/L (0.7-2.1)
[2021-11-18 21:14] LABS: Alanine Aminotransferase 32 IU/L (<35); Albumin 3.8 g/dL (3.5-5.0); Albumin Globulin Ratio 1.3 (1.0-2.8); Alkaline Phosphatase 101 U/L (38-126); Aspartate Aminotransferase 41 IU/L (14-36); Bilirubin Total 1.4 mg/dL (0.2-1.3); Blood Urea Nitrogen 20 mg/dL (7-17); Calcium 8.1 mg/dL (8.4-10.2); Carbon Dioxide 23 mmol/L (22-32); Chloride 106 mmol/L (98-107); Estimated Glomerular Filt Rate > 60 mL/min (>60); Globulin 2.9 g/dL (1.7-4.1); Glucose 159 mg/dL (80-110); HEMOLYSIS < 15 (0-50); Lipase 64 U/L (23-300); Potassium 4.2 mmol/L (3.4-5.1); Sodium 136 mmol/L (137-145); Total Protein 6.7 g/dL (6.3-8.2)
[2021-11-18] MEDS: SODIUM CHLORIDE 0.9% 1,000 ML 1000 ML IV (21:14)
--- NOTE | 2021-11-18 21:15 | ED_ITS ---
HPI - General Adult General Chief complaint: Fever Stated complaint: bladder infection, fever not going down Time Seen by Provider: 11/18/21 21:00 Source: patient Mode of arrival: Wheelchair History of Present Illness HPI narrative: 80-year-old female. Returns to the emergency department this evening for malaise and fever and continue urinary tract infection like symptoms. She was seen here in the emergency department earlier today. Had a fairly extensive workup. CT scan. Was given 1 dose of antibiotics here in the ER. Was not sent home with any antibiotics. As the day has gone on she reports worsening symptoms. She does have a history of breast cancer. Is currently undergoing chemotherapy. Her last chemotherapy infusion was 3 days ago. Because of her continued symptoms she return to the emergency department for further evaluation. Related Data Home Medications Medication Instructions Recorded Confirmed aspirin 81 mg tablet,delayed 81 mg PO DAILY #0 12/01/10 10/08/21 release (Aspirin Low Dose) multivitamin 1 tab PO DAILY #0 12/01/10 10/08/21 acetaminophen 500 mg tablet 500 mg PO Q6H PRN 04/06/19 10/08/21 (Tylenol Extra Strength) Previous Rx's Medication Instructions Recorded amlodipine 5 mg tablet 5 mg PO BID #180 tab 09/16/20 alendronate 35 mg tablet 35 mg PO QWEEK #12 tab 07/20/21 hydrocodone 5 mg-acetaminophen 325 1 tab PO Q8H PRN #14 tab 08/26/21 mg tablet ondansetron 4 mg disintegrating 4 mg PO Q6H PRN #30 tab 09/07/21 tablet prochlorperazine maleate 10 mg 10 mg PO Q6H PRN #30 tab 09/07/21 tablet (Compazine) nystatin 100,000 unit/gram topical 1 applic TOPICAL BID #60 applic 09/14/21 powder losartan 50 mg-hydrochlorothiazide See Rx Instructions .ROUTE 09/22/21 12.5 mg tablet .COMPLEX #90 tab blood sugar diagnostic (Blood #50 ea 10/06/21 Glucose Test) blood-glucose meter #1 ea 10/06/21 lancets #200 ea 10/06/21 metformin 500 mg tablet 500 mg PO BID #60 tab 10/06/21 phenazopyridine 200 mg tablet 200 mg PO TID 0 Days #6 tab 10/08/21 (Pyridium) phenazopyridine 100 mg tablet 100 mg PO TID PRN #9 tab 10/15/21 (Pyridium) ezetimibe 10 mg tablet See Rx Instructions .ROUTE 10/26/21 .COMPLEX #90 tab lidocaine-prilocaine 2.5 %-2.5 % 1 applic TOPICAL PRN PRN #30 g 10/26/21 topical cream ciprofloxacin HCl 500 mg tablet 500 mg PO BID #10 tab 11/10/21 (Cipro) Allergies Allergy/AdvReac Type Severity Reaction Status Date / Time No Known Drug Allergies Allergy Verified 10/15/21 13:19 Review of Systems Review of Systems ROS Unobtainable: All systems reviewed & are unremarkable except as noted in HPI and below Constitutional Constitutional: Reports chills, Reports fatigue and Reports fever(s) Eyes Eyes: Reports system reviewed and no additional complaints, except as documented ENT Ears, Nose, Mouth, and Throat: Denies sore throat Cardiovascular Cardiovascular: Denies chest pain and Reports dyspnea (This is not new) Respiratory Respiratory: Reports dyspnea (This is not new) Gastrointestinal Gastrointestinal: Reports abdominal pain, Denies change in bowel habits, Reports nausea and Denies vomiting Genitourinary Genitourinary: Reports dysuria Musculoskeletal Musculoskeletal: Denies back pain Integumentary/Breasts Skin/Breast: Denies rash Neurologic Neurologic: Reports system reviewed and no additional complaints, except as documented Endocrine Endocrine: Reports fatigue Hematologic/Lymphatic On Anticoagulants: No Allergic/Immunologic Allergic/Immunologic: Reports system reviewed and no additional complaints, except as documented 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 Right hip pain Splenomegaly Strain of tendon of left rotator cuff Surgical History H/O right wrist surgery History of carpal tunnel release (Unknown) History of partial mastectomy of left breast (07/29/21) History of surgery Hx of appendectomy (Unknown) Hx of cataract surgery (Unknown) Hx of cholecystectomy Hx of eye surgery Status post cholecystectomy Family History Father Cancer Mother Cancer Social History household members: family Smoking Status: Never smoker alcohol intake: never substance use type: does not use Smoking Status: Never smoker alcohol intake frequency: 0-2 drinks per day Substance Use Type: does not use Exam Initial Vital Signs Initial Vital Signs: Vital Signs Temperature 99.5 F 11/18/21 19:40 Pulse Rate 98 H 11/18/21 19:40 Respiratory Rate 20 11/18/21 19:40 Blood Pressure 131/60 11/18/21 19:40 Pulse Oximetry 97 11/18/21 19:40 Const General: cooperative and comfortable HENMT Head: normal to inspection and normocephalic Chest Chest: normal inspection of the chest Resp Effort & Inspection: normal respiratory effort Auscultation: clear to auscultation bilaterally Cardio Rate: regular rate Rhythm: regular rhythm GI Inspection: non-distended Palpation: No firm, No guarding and tender Skin General: no rashes or lesions noted Neuro General: patient alert, patient awake, patient oriented x3 and moves all ex tremities Extrem General: normal to inspection and capillary refill normal Psych Appearance: grossly normal and well kempt Scores GCS Joe coma scale eye opening: Spontaneous Joe coma scale verbal response: Orientated Antonito coma scale motor response: Obey commands Antonito coma scale total score: 15 Course Orders Ordered: ED Orders 11/18/21 20:55 Complete Blood Count AUTO DIFF Stat Comprehensive Metabolic Panel Stat Lactate (Lactic Acid) Stat Lipase Stat Procalcitonin Stat 11/18/21 21:02 XR chest 1V Stat 11/18/21 21:18 Blood Culture Stat 11/18/21 21:21 COVID19 -Nasal RAPID/Pre-Proc Stat 11/18/21 22:17 Urinalysis and Microscopic Stat Urine Culture Stat Acetaminophen (Acetaminophen 325 Mg Tablet) 650 mg PO Q6HR PRN PRN Reason: Fever/Mild Pain (1-3) Hydrocodone Bitart/Acetaminophen (Hydrocodone/Acet 5/325 Tablet) 1 tab PO Q8H PRN PRN Reason: pain Amlodipine Besylate (Amlodipine 5 Mg Tablet) 5 mg PO BID PATI Aspirin (Aspirin Ec 81 Mg Tablet) 81 mg PO DAILY PATI Dextrose (Dextrose 50 % In Water 25 Gm/50 Ml Syringe) 25 gm IV PRN PRN PRN Reason: Hypoglycemia Ezetimibe (Ezetimibe 10 Mg Tablet) 10 mg PO BEDTIME [facility] Last Admin: 11/19/21 01:05 Dose: 10 mg Documented by: BRYSON Sodium Chloride (Normal Saline 0.9%) 1,000 mls @ 100 mls/hr IV CONT [facility] Last Admin: 11/18/21 23:01 Dose: 100 mls/hr Documented by: BRYSON Ceftriaxone Sodium 1,000 mg/ (Sodium Chloride) 100 mls @ 200 mls/hr IV Q24H [facility] Insulin Glargine (Insulin Glargine 100 Unit/Ml 3ml Pen) 5 unit SUBCUT 0800 [facility] Insulin Glargine (Insulin Glargine 100 Unit/Ml 3ml Pen) 5 unit SUBCUT 2100 [facility] Insulin Human Lispro (Insulin Lispro 100 Unit/Ml 3ml Vial) 0 unit SUBCUT ACHS PATI; Protocol Lidocaine/Prilocaine (Lidocaine/Prilocaine 5 Gm) 1 gm TOP PRN PRN PRN Reason: Pain Naloxone HCl (Naloxone 0.4 Mg/Ml Vial) 0.2 mg IV Q2MIN PRN PRN Reason: Opiate Reversal Nystatin (Nystatin Powder 15gm) 1 applic TOP BID [facility] Last Admin: 11/19/21 00:12 Dose: Not Given Documented by: BRYSON Ondansetron HCl (Ondansetron 4 Mg/2 Ml Inj) 4 mg IV Q6HR PRN PRN Reason: Nausea And Vomiting Discontinued Medications Enoxaparin Sodium (Enoxaparin 40 Mg/0.4 Ml Syringe) 40 mg SUBCUT DAILY [facility] Enoxaparin Sodium (Enoxaparin 40 Mg/0.4 Ml Syringe) 40 mg SUBCUT DAILY [facility] Sodium Chloride (Normal Saline 0.9%) 1,000 mls @ 1,000 mls/hr IV BOLUS ONE Stop: 11/18/21 22:00 Last Infusion: 11/18/21 22:57 Dose: 0 mls/hr Documented by: Admin: 11/18/21 21:14 Dose: 1,000 mls/hr Documented by: BRYSON Cefepime HCl 2 gm/ Sodium (Chloride) 100 mls @ 200 mls/hr IV NOW ONE Stop: 11/18/21 21:06 Last Infusion: 11/18/21 21:58 Dose: 0 mls/hr Documented by: Admin: 11/18/21 21:16 Dose: 200 mls/hr Documented by: BRYSON Ceftriaxone Sodium 1,000 mg/ (Sodium Chloride) 100 mls @ 200 mls/hr IV Q24H PATI Last Admin: 11/19/21 00:12 Dose: Not Given Documented by: BRYSON Vital Signs Vital signs: Vital Signs - 8 hr 11/18/21 19:40 11/18/21 20:52 11/18/21 21:56 Temperature 99.5 F 101.2 F H Pulse Rate 98 H 99 H Respiratory Rate 20 22 Blood Pressure 131/60 Pulse Oximetry 97 97 11/18/21 22:00 11/18/21 22:04 Temperature Pulse Rate 100 H 104 H Respiratory Rate 22 24 Blood Pressure 134/63 Pulse Oximetry 96 96 Medical Decision Making Medical Records Medical records reviewed: Yes I reviewed the patient's medical records. Lab Data Lab results reviewed: Yes I reviewed the patient's lab results. Result diagrams: 11/18/21 20:55 11/18/21 20:55 Labs: Lab Results 11/18/21 11/18/21 11/18/21 Range/Units 20:55 20:55 20:55 WBC 4.2 L (4.5-11.0) X10^3/uL RBC 3.26 L (4.0-5.2) X10^6/uL Hgb 10.3 L (12.0-16.0) g/dL Hct 30.9 L (36-46) % MCV 95.0 (80-100) fL MCH 31.8 (26-34) PG MCHC 33.5 (30-36) % RDW 16.7 H (11.6-14.8) % Plt Count 77 L (150-400) X10^3/uL Neut % (Auto) 85.6 H (50-75) % Lymph % (Auto) 9.8 L (25-40) % [place] % (Auto) 3.3 (3-14) % Eos % (Auto) 0.9 L (2-4) % Baso % (Auto) 0.4 (0-2) % Neut # (Auto) 3600 (9651-7778) /uL Lymph # (Auto) 400 L (1000-7114) /uL [place] # (Auto) 100 (0-900) /uL Eos # (Auto) 0 (0-450) /uL Baso # (Auto) 0 (0-100) /uL Sodium 136 L (137-145) mmol/L Potassium 4.2 (3.4-5.1) mmol/L Chloride 106 (98-107) mmol/L Carbon Dioxide 23 (22-32) mmol/L BUN 20 H (7-17) mg/dL Creatinine 0.69 (0.52-1.04) mg/dL Estimated GFR > 60 (>60) mL/min BUN/Creatinine Ratio 29.0 H (6-22) Glucose 159 H (80-110) mg/dL Hemoglobin A1c (4.0-6.0) % Lactate 2.1 (0.7-2.1) mmol/L Calcium 8.1 L (8.4-10.2) mg/dL Magnesium (1.6-2.3) mg/dL Total Bilirubin 1.4 H (0.2-1.3) mg/dL AST 41 H (14-36) IU/L ALT 32 (<35) IU/L Alkaline Phosphatase 101 (38-126) U/L Total Protein 6.7 (6.3-8.2) g/dL Albumin 3.8 (3.5-5.0) g/dL Globulin 2.9 (1.7-4.1) g/dL Albumin/Globulin Ratio 1.3 (1.0-2.8) Lipase (23-300) U/L Procalcitonin (<0.5) ng/mL SARS-CoV-2 (PCR) (Negative) 11/18/21 11/18/21 11/18/21 Range/Units 20:55 20:55 20:55 WBC (4.5-11.0) X10^3/uL RBC (4.0-5.2) X10^6/uL Hgb (12.0-16.0) g/dL Hct (36-46) % MCV (80-100) fL MCH (26-34) PG MCHC (30-36) % RDW (11.6-14.8) % Plt Count (150-400) X10^3/uL Neut % (Auto) (50-75) % Lymph % (Auto) (25-40) % [place] % (Auto) (3-14) % Eos % (Auto) (2-4) % Baso % (Auto) (0-2) % Neut # (Auto) (3122-2410) /uL Lymph # (Auto) (1242-1023) /uL [place] # (Auto) (0-900) /uL Eos # (Auto) (0-450) /uL Baso # (Auto) (0-100) /uL Sodium (137-145) mmol/L Potassium (3.4-5.1) mmol/L Chloride (98-107) mmol/L Carbon Dioxide (22-32) mmol/L BUN (7-17) mg/dL Creatinine (0.52-1.04) mg/dL Estimated GFR (>60) mL/min BUN/Creatinine Ratio (6-22) Glucose (80-110) mg/dL Hemoglobin A1c 6.4 H (4.0-6.0) % Lactate (0.7-2.1) mmol/L Calcium (8.4-10.2) mg/dL Magnesium 2.0 (1.6-2.3) mg/dL Total Bilirubin (0.2-1.3) mg/dL AST (14-36) IU/L ALT (<35) IU/L Alkaline Phosphatase (38-126) U/L Total Protein (6.3-8.2) g/dL Albumin (3.5-5.0) g/dL Globulin (1.7-4.1) g/dL Albumin/Globulin Ratio (1.0-2.8) Lipase 64 (23-300) U/L Procalcitonin 0.24 (<0.5) ng/mL SARS-CoV-2 (PCR) (Negative) 11/18/21 Range/Units 21:21 WBC (4.5-11.0) X10^3/uL RBC (4.0-5.2) X10^6/uL Hgb (12.0-16.0) g/dL Hct (36-46) % MCV (80-100) fL MCH (26-34) PG MCHC (30-36) % RDW (11.6-14.8) % Plt Count (150-400) X10^3/uL Neut % (Auto) (50-75) % Lymph % (Auto) (25-40) % [place] % (Auto) (3-14) % Eos % (Auto) (2-4) % Baso % (Auto) (0-2) % Neut # (Auto) (4570-8765) /uL Lymph # (Auto) (9612-6629) /uL [place] # (Auto) (0-900) /uL Eos # (Auto) (0-450) /uL Baso # (Auto) (0-100) /uL Sodium (137-145) mmol/L Potassium (3.4-5.1) mmol/L Chloride (98-107) mmol/L Carbon Dioxide (22-32) mmol/L BUN (7-17) mg/dL Creatinine (0.52-1.04) mg/dL Estimated GFR (>60) mL/min BUN/Creatinine Ratio (6-22) Glucose (80-110) mg/dL Hemoglobin A1c (4.0-6.0) % Lactate (0.7-2.1) mmol/L Calcium (8.4-10.2) mg/dL Magnesium (1.6-2.3) mg/dL Total Bilirubin (0.2-1.3) mg/dL AST (14-36) IU/L ALT (<35) IU/L Alkaline Phosphatase (38-126) U/L Total Protein (6.3-8.2) g/dL Albumin (3.5-5.0) g/dL Globulin (1.7-4.1) g/dL Albumin/Globulin Ratio (1.0-2.8) Lipase (23-300) U/L Procalcitonin (<0.5) ng/mL SARS-CoV-2 (PCR) Negative (Negative) Imaging Data Chest x-ray: Radiologist's Impression: [address] [address] XRay Report Signed Patient: Patricia Giordano MR#: [id number] : 1940 Acct:[id number] Age/Sex: 80 / F Date of Service: 11/18/21 Loc: 90A-1 Accession Number: [id number] ?? Procedure: XR chest 1V Ordering Provider: Brijesh Funk D.O. PROCEDURE:? XR CHEST 1V ? INDICATIONS:? eval for PNA ? TECHNIQUE:? One view of the chest was acquired.? ? COMPARISON:? [facility], CT, CT KIDNEY URETER BLADDER (KUB), 11/18/2021, 8:43.? [facility], CR, XR CHEST 1V, 11/18/2021, 6:29.? [facility], CR, XR CHEST 1V, 08/26/2021, 9:25. ? FINDINGS:? ? Surgical changes and devices:? Right-sided port with the catheter tip in the right atrium. ? Lungs and pleura:? Trace opacity at the left costophrenic angle.? No pleural effusions or pneumothorax.? ? Mediastinum:? Mediastinal contours appear unchanged.? Heart size is at the upper limits of normal.? ? Bones and chest wall:? No suspicious bony lesions.? Overlying soft tissues appear unremarkable.? ? IMPRESSION:? Trace opacity at the left costophrenic angle.? This could be due to atelectasis or pneumonia. ? ? Dictated by: Isaiah Pérez M.D. on 11/18/2021 at 22:34? ?? MDM Narrative Medical decision making narrative: I did review the patient's labs and visit from earlier today. Family at bedside states that she was not discharged with any antibiotics this morning. Heart rate greater than 90. Not neutropenic. His febrile. Not hypotensive. Given her presentation and the workup she had earlier today most likely source is urine. Patient was given cefepime. We did repeat blood cultures despite blood cultures been obtained earlier today. Patient not hypotensive. Not altered. Not dehydrated. Will hold on 30 cc/kilogram of fluid it is not needed this situation. Was given antibiotics. Given her history, comorbidities, presentation patient does require admission to the hospital for further evaluation and treatment. I did discuss this with the patient and family at bedside. During her workup we did receive a call from the lab stating that blood cultures from earlier today were positive with Gram-positive bacteria. Discussed the case with JOSSELIN Almazan the [facility] provider who will admit for further evaluation and treatment. Discharge Plan Departure Patient Disposition: Home Clinical Impression: Acute UTI, Breast cancer
[2021-11-18] MEDS: CEFEPIME 2 GM in SODIUM CHLORIDE 0.9% 100 ML 200 ML IV (21:16)
[2021-11-18 21:30] LABS: Procalcitonin 0.24 ng/mL (<0.5)
[2021-11-18 21:53] LABS: COVID19 -Nasal RAPID Negative (Negative)
[2021-11-18 22:26] LABS: Appearance Urine UA CLEAR; Bilirubin Urine UA NEGATIVE (NEGATIVE); Color Urine UA YELLOW; Glucose Urine UA TRACE g/dL (Negative); Ketones Urine UA NEGATIVE (NEGATIVE); Leukocyte Esterase Urine UA NEGATIVE (NEGATIVE); Nitrite Urine UA NEGATIVE (Negative); Occult Blood Urine UA 3+ (Negative); Protein Urine UA 2+ (Negative); Urobilinogen Urine UA 0.2 E.U./dL (0.2)
[2021-11-18 22:33] LABS: pH Urine UA 5.5 (4.5-8.0)
[2021-11-18 22:34] LABS: WBC Urine 5-10/HPF (0-5/HPF)
[2021-11-18 22:35] LABS: Bacteria Urine Few (2-10); Hyaline Casts Urine 0-1/LPF; RBC Urine 10-30/HPF (0-5/HPF); Renal Epithelial Cells Urine 0-1/HPF (0-1/HPF); Squamous Epithelial Cell Urine 1-5 /HPF (0-5/HPF); Transitional Epi Cells Urine 0-1/HPF (0-5/HPF)
[2021-11-18] MEDS: SODIUM CHLORIDE 0.9% 1,000 ML 100 ML IV (23:01)
[2021-11-18 23:04] LABS: Reflexed Lactate in 2 Hours Y
[2021-11-18 23:26] LABS: Hemoglobin A1C% w Est Avg Glu 6.4 % (4.0-6.0)
[2021-11-19] VITALS (31 sets, daily range): BP systolic 119–162; BP diastolic 56–75; PULSE 87–113; RESP 19–26; TEMP 37–38.5; O2SAT 94–99; BMI 29.8
[2021-11-19] MEDS: EZETIMIBE 10 MG TABLET PO ×2 (01:05→20:45)
--- NOTE | 2021-11-19 01:20 | P.HP_ITS ---
History of Present Illness History of Present Illness Date Patient Seen: 11/19/21 Time Patient Seen: 01:00 Chief complaint: bladder infection, fever not going down Narrative: Patricia Giordano is a 80 y.o female currently under treatment for breast cancer, diabetes type 2, hypertension, hyperlipidemia, recurrent UTIs was seen in the ED 11/18, diagnosed with a UTI, given IV zosyn. After workup and evaluation, was not discharged on oral abx. Advised to follow up with PCP. She returns today with continued flank pain and fever of 101.2. She denies headache, nasal congestion, sore throat, shortness of breath, chest pain, she does endorse having low back pain, denies nausea vomiting, abdominal pain, diarrhea or constipation. CT of the abdomen and pelvis noted the ?Bladder wall is mildly thickened, which may be secondary to underdistention or possibly cystitis. Patient's temperature is 101.2?, blood pressure 126/58, heart rate 97, respiratory rate 21, oxygen saturation 96% on room air she weighs 83.9 kg with a BMI of 29.9. WBC is low at 4.2 RBC 3.26 hemoglobin 10.3 hematocrit 30.9, platelet count 77, sodium 136, BUN is 20 with a normal creatinine and a GFR greater than 60, glucose 159, A1c is 6.4, calcium 8.1, magnesium is 2.0, AST is 41 and ALT is normal, lipase 64, procalcitonin 0.24, UA is not eligible for culture however there was bacteria remaining, COVID-19 PCR is negative. 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 Right hip pain Splenomegaly Strain of tendon of left rotator cuff Surgical History H/O right wrist surgery History of carpal tunnel release (Unknown) History of partial mastectomy of left breast (07/29/21) History of surgery Hx of appendectomy (Unknown) Hx of cataract surgery (Unknown) Hx of cholecystectomy Hx of eye surgery Status post cholecystectomy Family & Social History Family History Father Cancer Mother Cancer Social History: household members family Safety & Behavioral: Feels Safe in Current Yes Environment Been Physically Hurt or No Threatened By a Person Tobacco & Substance use: Smoking Status Never smoker alcohol intake never alcohol intake frequency 0-2 drinks per day Substance Use Type does not use Meds Home Medications and Allergies Home Medications Medication Instructions Recorded Confirmed Type aspirin 81 mg tablet,delayed 81 mg PO DAILY #0 12/01/10 10/08/21 History release (Aspirin Low Dose) multivitamin 1 tab PO DAILY #0 12/01/10 10/08/21 History acetaminophen 500 mg tablet 500 mg PO Q6H PRN 04/06/19 10/08/21 History (Tylenol Extra Strength) amlodipine 5 mg tablet 5 mg PO BID #180 tab 09/16/20 10/08/21 Rx alendronate 35 mg tablet 35 mg PO QWEEK #12 tab 07/20/21 10/08/21 Rx hydrocodone 5 mg-acetaminophen 325 1 tab PO Q8H PRN #14 tab 08/26/21 10/08/21 Rx mg tablet ondansetron 4 mg disintegrating 4 mg PO Q6H PRN #30 tab 09/07/21 10/08/21 Rx tablet prochlorperazine maleate 10 mg 10 mg PO Q6H PRN #30 tab 09/07/21 10/08/21 Rx tablet (Compazine) nystatin 100,000 unit/gram topical 1 applic TOPICAL BID #60 applic 09/14/21 10/08/21 Rx powder losartan 50 mg-hydrochlorothiazide See Rx Instructions .ROUTE 09/22/21 10/08/21 Rx 12.5 mg tablet .COMPLEX #90 tab blood sugar diagnostic (Blood #50 ea 10/06/21 10/08/21 Rx Glucose Test) blood-glucose meter #1 ea 10/06/21 10/08/21 Rx lancets #200 ea 10/06/21 10/08/21 Rx metformin 500 mg tablet 500 mg PO BID #60 tab 10/06/21 10/08/21 Rx phenazopyridine 200 mg tablet 200 mg PO TID 0 Days #6 tab 10/08/21 10/08/21 Rx (Pyridium) phenazopyridine 100 mg tablet 100 mg PO TID PRN #9 tab 10/15/21 Rx (Pyridium) ezetimibe 10 mg tablet See Rx Instructions .ROUTE 10/26/21 Rx .COMPLEX #90 tab lidocaine-prilocaine 2.5 %-2.5 % 1 applic TOPICAL PRN PRN #30 g 10/26/21 Rx topical cream ciprofloxacin HCl 500 mg tablet 500 mg PO BID #10 tab 11/10/21 Rx (Cipro) Allergies Allergy/AdvReac Type Severity Reaction Status Date / Time No Known Drug Allergies Allergy Verified 10/15/21 13:19 Review of Systems Review of Systems ROS: Yes All systems reviewed with the patient and are negative except as otherwise documented Exam Vital Signs (past 8 hours): - 11/18/21 19:40 11/18/21 20:52 11/18/21 21:56 Temperature 99.5 F 101.2 F H Pulse Rate 98 H 99 H Respiratory Rate 20 22 Blood Pressure 131/60 Pulse Oximetry 97 97 11/18/21 22:00 11/18/21 22:04 11/18/21 22:30 Temperature Pulse Rate 100 H 104 H 98 H Respiratory Rate 22 24 23 Blood Pressure 134/63 144/67 H Pulse Oximetry 96 96 11/18/21 23:00 11/18/21 23:30 11/19/21 00:00 Temperature Pulse Rate 97 H 97 H 99 H Respiratory Rate 24 22 20 Blood Pressure 148/90 H 149/68 H Pulse Oximetry 11/19/21 00:01 Temperature Pulse Rate 107 H Respiratory Rate 26 H Blood Pressure 154/65 H Pulse Oximetry Oxygen Delivery Method Room Air Narrative Exam Narrative: Gen: Alert, oriented, well-developed 80 y.o. female, states is sleepy HEENT: normocephalic, atraumatic, conjunctiva clear, sclera non-icteric, oral mucosa pink and moist Neck: supple, full ROM, no JVD, trachea is midline Chest: has a port on right upper chest w/no signs of infection Resp: Lungs CTA, non-labored breathing CV: RRR, no murmur or rubs Abd: soft, non-tender, normoactive BTs Skin: no lesions or rashes, dry and intact Neuro: Alert and oriented X 4 w/no focal deficits. Speech clear and coherent. Extremities: moves all 4 extremities, is ambulatory, negative Kati?s sign Psyche: normal mood and affect. Objective Labs Result Diagrams: 11/18/21 20:55 11/18/21 20:55 Labs: Laboratory Results - last 24 hr 11/18/21 11/18/21 11/18/21 20:55 20:55 20:55 WBC 4.2 L RBC 3.26 L Hgb 10.3 L Hct 30.9 L MCV 95.0 MCH 31.8 MCHC 33.5 RDW 16.7 H Plt Count 77 L Neut % (Auto) 85.6 H Lymph % (Auto) 9.8 L Screven % (Auto) 3.3 Eos % (Auto) 0.9 L Baso % (Auto) 0.4 Neut # (Auto) 3600 Lymph # (Auto) 400 L Screven # (Auto) 100 Eos # (Auto) 0 Baso # (Auto) 0 Sodium 136 L Potassium 4.2 Chloride 106 Carbon Dioxide 23 BUN 20 H Creatinine 0.69 Estimated GFR > 60 BUN/Creatinine Ratio 29.0 H Glucose 159 H Hemoglobin A1c Lactate 2.1 Calcium 8.1 L Magnesium Total Bilirubin 1.4 H AST 41 H ALT 32 Alkaline Phosphatase 101 Total Protein 6.7 Albumin 3.8 Globulin 2.9 Albumin/Globulin Ratio 1.3 Lipase Procalcitonin Urine Color Urine Appearance Urine pH Ur Specific Perryman Urine Protein Urine Glucose (UA) Urine Ketones Urine Occult Blood Urine Nitrate Urine Bilirubin Urine Urobilinogen Ur Leukocyte Esterase Urine RBC Urine WBC Ur Squamous Epith Cells Ur Transition Epith Cell Ur Renal Epithelial Cell Urine Bacteria Hyaline Casts Ur Culture Indicated? SARS-CoV-2 (PCR) 11/18/21 11/18/21 11/18/21 20:55 20:55 20:55 WBC RBC Hgb Hct MCV MCH MCHC RDW Plt Count Neut % (Auto) Lymph % (Auto) Screven % (Auto) Eos % (Auto) Baso % (Auto) Neut # (Auto) Lymph # (Auto) Screven # (Auto) Eos # (Auto) Baso # (Auto) Sodium Potassium Chloride Carbon Dioxide BUN Creatinine Estimated GFR BUN/Creatinine Ratio Glucose Hemoglobin A1c 6.4 H Lactate Calcium Magnesium 2.0 Total Bilirubin AST ALT Alkaline Phosphatase Total Protein Albumin Globulin Albumin/Globulin Ratio Lipase 64 Procalcitonin 0.24 Urine Color Urine Appearance Urine pH Ur Specific Perryman Urine Protein Urine Glucose (UA) Urine Ketones Urine Occult Blood Urine Nitrate Urine Bilirubin Urine Urobilinogen Ur Leukocyte Esterase Urine RBC Urine WBC Ur Squamous Epith Cells Ur Transition Epith Cell Ur Renal Epithelial Cell Urine Bacteria Hyaline Casts Ur Culture Indicated? SARS-CoV-2 (PCR) 11/18/21 11/18/21 11/18/21 21:21 22:17 23:21 WBC RBC Hgb Hct MCV MCH MCHC RDW Plt Count Neut % (Auto) Lymph % (Auto) Screven % (Auto) Eos % (Auto) Baso % (Auto) Neut # (Auto) Lymph # (Auto) Screven # (Auto) Eos # (Auto) Baso # (Auto) Sodium Potassium Chloride Carbon Dioxide BUN Creatinine Estimated GFR BUN/Creatinine Ratio Glucose Hemoglobin A1c Lactate 1.0 Calcium Magnesium Total Bilirubin AST ALT Alkaline Phosphatase Total Protein Albumin Globulin Albumin/Globulin Ratio Lipase Procalcitonin Urine Color Yellow Urine Appearance Clear Urine pH 5.5 Ur Specific Perryman 1.020 Urine Protein 2+ H Urine Glucose (UA) Trace H Urine Ketones Negative Urine Occult Blood 3+ H Urine Nitrate Negative Urine Bilirubin Negative Urine Urobilinogen 0.2 Ur Leukocyte Esterase Negative Urine RBC 10-30/hpf H Urine WBC 5-10/hpf H Ur Squamous Epith Cells 1-5 /hpf Ur Transition Epith Cell 0-1/hpf Ur Renal Epithelial Cell 0-1/hpf Urine Bacteria Few (2-10) H Hyaline Casts 0-1/lpf Ur Culture Indicated? Culture not indicate SARS-CoV-2 (PCR) Negative Assessment & Plan Assessment & Plan narrative: Patricia Giordano is admitted for further evaluation and management of a urinary tract infection. 1. UTI, acute and present on admission * Urine cx is pending, recent cultures were escalante sensitive * She is intiated on IV rocephin 1 gram daily * She received a dose in the ED, and subsequent doses will be continued later today 2. Fever, acute and secondary to UTI * PO tylenol 3. Diabetes type 2, suboptimally controlled * A1c is 6.2 * She will receive Glargine 5 units at breakfast and bedtime, low dose correctional scale ACHS. * Carb controlled diet 4. Hypertension/CAD * She normally takes lisinopril/hctz 20/07 and will receive lisinopril 20 mg daily * Continue home dose of amlodipine 5 mg po bid * Continue home dose of zetia 10 mg at bedtime VTE Prophylaxis: Wells risk score 1 Enoxaparin 40 mg subQ once daily Bilateral SCDs Patient is admitted to the inpatient service due to the severity of disease, risks of further disease progression and this stay is expected to exceed 2 midnights. FEN: IV fluids: NS at 100 ml/hour, diet: carb controlled diet, labs: CBC, C/BMP, liver enzymes, Mag, PT/INR Consultants None Dispo: likely d/c to home Code status: Full code as discussed with the patient who identifies granddaughter Oanh Mock as her surrogate and POA. [X] I have utilized all available immediate resources to obtain, update, or review of the patient's current medications COVID-19 COVID-19 status: Negative Result date/Date tested (Pos, Neg/Pending): 11/19/21 Time Spent With Patient Critical Care time: I spent a total of [] minutes of critical care time on this patient's care today; this time is exclusive of procedural time. Scores Wells' Criteria for PE Clinical signs and symptoms of DVT: No PE is #1 Dx or equally likely: No Heart rate > 100: No Immobilization at least 3 days or surg in previous 4 weeks: No History of PE or DVT: No Hemoptysis: No Malignancy w/Treatment within 6 months or palliative: Yes Wells' PE Score total: 1 Quality VTE Deep Vein Thrombosis/Pulmonary Embolism Present on Admission: No MIPS - Admit I confirm the patient?s Advance Care Plan is present, Code status is documented, Surrogate decision maker is in patient?s record [If Yes, STOP here]: Yes MIPS - DC The patient has current or prior documentation of left ventricular ejection fraction (LVEF) less than 40%, or moderate or severely depressed left ventricular systolic function.: No
[2021-11-19 05:46] LABS: Add Manual Diff / Slide Review NO; Basophils Absolute Auto 0 /uL (0-100); Basophils Percent Auto 0.2 % (0-2); Eosinophils Absolute Auto 0 /uL (0-450); Eosinophils Percent Auto 0.3 % (2-4); Hematocrit 27.3 % (36-46); Hemoglobin 9.1 g/dL (12.0-16.0); Lymphocytes Absolute Auto 300 /uL (1100-4500); Lymphocytes Percent Auto 12.6 % (25-40); Mean Corpuscular HGB Conc 33.4 % (30-36); Mean Corpuscular Hemoglobin 31.9 PG (26-34); Mean Corpuscular Volume 95.7 fL (80-100); Monocytes Absolute Auto 100 /uL (0-900); Monocytes Percent Auto 4.6 % (3-14); Neutrophils Absolute Auto 1800 /uL (1500-7000); Neutrophils Percent Auto 82.3 % (50-75); Platelet Count 64 X10^3/uL (150-400); Red Blood Cell Count 2.85 X10^6/uL (4.0-5.2); Red Cell Distribution Width 16.9 % (11.6-14.8); White Blood Cell Count 2.2 X10^3/uL (4.5-11.0)
[2021-11-19 05:53] LABS: Blood Urea Nitrogen 18 mg/dL (7-17); Calcium 7.5 mg/dL (8.4-10.2); Carbon Dioxide 24 mmol/L (22-32); Chloride 109 mmol/L (98-107); Estimated Glomerular Filt Rate > 60 mL/min (>60); Glucose 187 mg/dL (80-110); HEMOLYSIS < 15 (0-50); Potassium 3.9 mmol/L (3.4-5.1); Sodium 137 mmol/L (137-145)
[2021-11-19] MEDS: cefTRIAXone 1,000 MG in SODIUM CHLORIDE 0.9% 100 ML 200 ML IV (09:01)
[2021-11-19] MEDS: INSULIN GLARGINE 100 UNIT/ML 3ML PEN SUBCUT ×2 (09:02→20:46)
[2021-11-19] MEDS: INSULIN LISPRO 100 UNIT/ML 3ML VIAL SUBCUT ×4 (09:03→20:47)
[2021-11-19] MEDS: NYSTATIN POWDER 15GM 1 APPLIC TOP (09:04)
[2021-11-19] MEDS: ASPIRIN EC 81 MG TABLET PO (09:05)
[2021-11-19] MEDS: AMLODIPINE 5 MG TABLET PO ×2 (09:05→20:45)
[2021-11-19] MEDS: CALCIUM GLUCONATE 4.65 MEQ in SODIUM CHLORIDE 0.9% 50 ML 180 ML IV (12:20)
[2021-11-19] MEDS: ACETAMINOPHEN 325 MG TABLET 650 MG PO ×2 (13:22→20:45)
--- NOTE | 2021-11-19 15:02 | DI.ECHO.S_ITS ---
[facility]---------+ [facility] +---------+ : : [address] [place] [address] : : : : [id number] : : : : Phone: [phone] Echocardiogram Report + + :Name: VANCE ROBERTS Study Date: 11/19/2021 Height: 66 in : :[facility] ReadingLocation: Weight: 185 lb : : Gender: Female BSA: 1.9 m2 : :: 1940 Age: 80 yrs BP: 144/63 mmHg: :Reason For Study: rule out endocarditis : : Performed By: Donna Bosch : :Referring: SHAHZAD LOCKE : + + Interpretation Summary The ejection fraction is estimated to be 60-65%. Diastolic function could not be accurately assessed due to contradictory data. The right ventricle is normal in size and function. The left atrium is mildly dilated. The tips of the mitral valve leaflets are thickened and calcified. This may be consistent with old, healed endocarditis. There is no evidence of a freely mobile mass or acute endocarditis. There is mild tricuspid regurgitation. PASP is approximately 35 to 40 mmHg. Procedure: A two-dimensional transthoracic echocardiogram with color flow and Doppler was performed. The study quality was technically adequate. There is no prior echocardiogram noted for this patient. The patient was in sinus rhythm with heart rates between 83-99 bpm during the exam. Left Ventricle: The left ventricle is normal in size and wall thickness. The ejection fraction is estimated to be 60-65%. Diastolic function could not be accurately assessed due to contradictory data. Right Ventricle: The right ventricle is normal in size and function. Atria: The left atrium is mildly dilated. Right atrial size is normal. There is no Doppler evidence for an interatrial shunt. Mitral Valve: There is mild mitral annular calcification. The mitral valve leaflets are mildly calcified. The tips of the mitral valve leaflets are thickened and calcified. This may be consistent with old, healed endocarditis. There is no evidence of a freely mobile mass or acute endocarditis. There is no mitral valve stenosis. There is trace mitral regurgitation. Aortic Valve: The aortic valve is trileaflet. The aortic valve opens well. There is no aortic valve stenosis. No aortic regurgitation is present. Tricuspid Valve: The tricuspid valve is not well visualized, but is grossly normal. There is mild tricuspid regurgitation. PASP is approximately 35 to 40 mmHg. Pulmonic Valve: The pulmonic valve leaflets are thin and pliable; valve motion is normal. There is mild pulmonic regurgitation. Great Vessels: The aortic root is normal size. The dimensions of the ascending aorta are normal. The IVC is of normal diameter and collapses greater than 50% with a sniff. This suggests a low right atrial pressure of 3 mm Hg. Pericardium/ Pleura There is no pericardial effusion. There is no pleural effusion. MMode/2D Measurements & Calculations LVIDd: 4.0 cm LVOT diam: 2.0 cm LVIDs: 2.6 cm Ao root diam: 3.1 cm FS: 34.1 % asc Aorta Diam: 2.9 cm IVSd: 0.83 cm Ao Arch Diam (Prox Trans): 2.9 cm LVPWd: 0.90 cm LV cortez. diameter/BSA (cm/m^2): 2.1 LV sys. diameter/BSA (cm/m^2): 1.4 LA A2 area: 22.6 cm2 RA long axis: 5.0 cm LA A4 area: 20.5 cm2 RA area: 16.7 cm2 LA length (vol): 5.0 cm RA vol: 47.7 ml LA vol: 78.2 ml RA : 24.6 ml/m2 LA vol index: 40.4 ml/m2 IVC diam: 1.2 cm RVD2 (mid): 3.4 cm TAPSE: 2.8 cm Doppler Measurements & Calculations Ao V2 max: 165.5 cm/sec LVOT Max Andrea: 112.6 cm/sec Ao V2 mean: 110.5 cm/sec LV V1 max P.1 mmHg Ao max P.0 mmHg LV V1 VTI: 24.1 cm Ao mean P.6 mmHg BEVERLEY(I,D): 2.4 cm2 Ao V2 VTI: 29.9 cm BEVERLEY(V,D): 2.1 cm2 sev ratio: 0.81 BEVERLEY indexed to BSA (cm^2/m^2): 1.3 MV E max andrea: 103.2 cm/sec TR max andrea: 272.9 cm/sec MV A max andrea: 96.1 cm/sec TR max P.9 mmHg MV E/A: 1.1 PA V2 max: 114.5 cm/sec Med Peak E' Andrea: 9.2 cm/sec PA V2 mean: 79.5 cm/sec E/E' med: 11.2 PA mean P.8 mmHg Lat Peak E' Andrea: 9.4 cm/sec PA pr(Accel): 34.5 mmHg E/E' lat: 10.9 E/e' average: 11.1 MV dec time: 0.20 sec MVA(VTI): 2.5 cm2 MV V2 mean: 62.8 cm/sec SV(LVOT): 73.0 ml MV mean P.8 mmHg MV V2 VTI: 28.7 cm Reading Physician:04:32 PM
[2021-11-19] MEDS: VANCOMYCIN 1,750 MG in SODIUM CHLORIDE 0.9% 500 ML 250 ML IV (16:24)
[2021-11-19 16:44] LABS: Lactate (Lactic Acid) 1.6 mmol/L (0.7-2.1)
--- NOTE | 2021-11-19 16:55 | PC.NURSE ---
Pt room to 223 around 1420 via gurney and able transfer herself to bed. Pt is AxO3-4, pt c/o body aches 2/10. Pt has T-100.8f, and dtr is at bedside. Pt is oriented to room , call light, bed control and tv controls. Bed alarms on safety, pt calls appropriately and agrees to calls for assistance as needed and not to get up without help. Dr. Weinstein into see pt, echo performed, labs drawn, [id number]; pt is denies needs at this time.
[2021-11-19 17:01] LABS: Procalcitonin 0.18 ng/mL (<0.5)
[2021-11-20] VITALS (10 sets, daily range): BP systolic 114–140; BP diastolic 46–65; PULSE 84–102; RESP 16–20; TEMP 36.9–38.1; O2SAT 94–97
[2021-11-20] MEDS: SODIUM CHLORIDE 0.9% 1,000 ML 100 ML IV ×2 (01:03→12:58)
[2021-11-20] MEDS: ACETAMINOPHEN 325 MG TABLET 650 MG PO ×3 (03:47→23:25)
[2021-11-20] MEDS: VANCOMYCIN 1,000 MG/200 ML PIGGYBACK 200 MG IV (03:47)
[2021-11-20] MEDS: ONDANSETRON 4 MG/2 ML INJ IV (03:47)
[2021-11-20 05:52] LABS: Basophils Absolute Auto 0 /uL (0-100); Basophils Percent Auto 0.9 % (0-2); Eosinophils Absolute Auto 0 /uL (0-450); Hematocrit 26.1 % (36-46); Hemoglobin 8.8 g/dL (12.0-16.0); Lymphocytes Absolute Auto 300 /uL (1100-4500); Mean Corpuscular HGB Conc 33.6 % (30-36); Mean Corpuscular Hemoglobin 32.1 PG (26-34); Mean Corpuscular Volume 95.5 fL (80-100); Monocytes Absolute Auto 100 /uL (0-900); Neutrophils Absolute Auto 900 /uL (1500-7000); Neutrophils Percent Auto 66.1 % (50-75); Platelet Count 65 X10^3/uL (150-400); Red Blood Cell Count 2.73 X10^6/uL (4.0-5.2); Red Cell Distribution Width 16.7 % (11.6-14.8)
[2021-11-20 05:59] LABS: BUN Creatinine Ratio 23.2 (6-22); Blood Urea Nitrogen 13 mg/dL (7-17); Calcium 6.9 mg/dL (8.4-10.2); Carbon Dioxide 22 mmol/L (22-32); Chloride 109 mmol/L (98-107); Estimated Glomerular Filt Rate > 60 mL/min (>60); Glucose 158 mg/dL (80-110); HEMOLYSIS < 15 (0-50); Potassium 3.4 mmol/L (3.4-5.1); Sodium 134 mmol/L (137-145)
[2021-11-20 06:38] LABS: Add Manual Diff / Slide Review SLIDE REVIEW; White Blood Cell Count 1.3 X10^3/uL (4.5-11.0)
[2021-11-20 07:16] LABS: Anisocytosis 2+
[2021-11-20 07:18] LABS: Platelet Estimate Decreased on smear
[2021-11-20] MEDS: cefTRIAXone 1,000 MG in SODIUM CHLORIDE 0.9% 100 ML 200 ML IV ×2 (08:06→10:12)
[2021-11-20] MEDS: AMLODIPINE 5 MG TABLET PO ×2 (08:07→21:05)
[2021-11-20] MEDS: INSULIN GLARGINE 100 UNIT/ML 3ML PEN SUBCUT ×2 (08:07→21:06)
[2021-11-20] MEDS: ASPIRIN EC 81 MG TABLET PO (08:07)
[2021-11-20] MEDS: INSULIN LISPRO 100 UNIT/ML 3ML VIAL SUBCUT ×4 (08:07→21:08)
[2021-11-20] MEDS: NYSTATIN POWDER 15GM 1 APPLIC TOP ×2 (08:08→21:06)
[2021-11-20] MEDS: POTASSIUM CHLORIDE 20 MEQ TAB PO (10:12)
--- NOTE | 2021-11-20 10:51 | CM.DANOTE ---
DCP: Case reveived, EMR reviewed and checked on patient. She was sleeping, but spoke to patient's daughter, Oanh Mock, who is DPOA. She was able to give information regarding patient's baseline activity level at home, as well as her current living situation. DCP assessment completed with information currently available. Patient is a 80 year old female who admitted on 11/18 to the care of the hospitalist team. PCP: Dr. Clifford. Payer: confirmed: Medicare/[employer]. Patient came to the hospital via private vehicle secondary to malaise and fever, as well as urinary tract infection symptoms. Patient had been to the emergency department earlier, and was given a dose of antibiotics in the ER, and had been sent home. She then had developed worsening symptoms, was febrile. Patient is undergoing chemo treatment for breast cancer at [facility]. Patient holds current diagnosis of UTI, acute with fever. Patient was sleeping, but spoke to daughter, Oanh Mock, over the phone. Confirmed that patient resides in [facility] with her brother, who does not do any care for her. Oanh indicated that she frequently checks on her mother, and her sister, Ana Kim, is closer and checks on patient about 3 times a day. At her baseline, she uses no DME, but daughter indicated that she recently had gotten her a lift chair. She stated, her mom has definately gotten weaker since her chemo. Patient does not have a walker. Let her know that this DC turnaround planner can ask hospitalist if patient is appropriate for P.T. eval. At team rounds, mentioned P.T. Hospitalist gave verbal permission. Patient is not yet medically stable for discharge at this time. Did add P.T orders to have her evaluated for a walker. P: DCP to continue to follow. Patient should be able to go home when she is deemed medically stable. She will also work with P.T. Lillian Decker RN/Still Operator Batch Or Continuous Discharge Planning/Care Management Advanced directive, confirm from FAMILY Start: 11/19/21 15:36 Freq: Q24H Status: Active Protocol: Document 11/19/21 14:30 OW (Rec: 11/19/21 16:11 OW [id number]) Co-Signed By Johanny Costello RN Advance Directive, confirm on record Time 16:03 Person contacted Kristyn, granddaugther Copy received No Advanced directive available on record No CM Discharge Assessment Start: 11/20/21 10:48 Freq: Status: Active Protocol: Document 11/20/21 10:48 (Rec: 11/20/21 10:50 [id number]) Discharge Planning Assessment Assigned Storage Engineer Lillian Decker RN/Still Operator Batch Or Continuous Advance Directives? Yes Advance Directives on File No History Provided By Patient,Family Member,Medical Record Prior Living Arrangements House Household Members family Type of transporation used prior to Relies on Others admit Independent with ADL's Yes Is patient alert and oriented? Yes Needs Assistance With Meal Prep,Home Chores / Shopping Caregiver for Another No Barriers to Discharge No Discharge Plan Home Transportation Arrangement Family Referrals Initiated None needed,Other Additional Comment Will place P.T. orders, and see how she does. Hospitalist has given permission for this. Whiteboard Updated in Patient Room with Yes name and ext. # of Storage Engineer Review Status In Process Next Review Type Continued Stay Review
--- NOTE | 2021-11-20 11:55 | PT.IIE ---
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 Right hip pain Splenomegaly Strain of tendon of left rotator cuff Physical Therapy Inpatient Evaluation/Re-Eval M1 PT/OT-IP Prior Functional Status Start: 11/20/21 13:44 Freq: NEEDED Status: Active Protocol: Document 11/20/21 11:55 AB (Rec: 11/20/21 13:53 AB [email or web address]) Medical Review Prior Functional Status Medical History Reviewed Yes Communication able to make needs known Mobility and Gait pt stated that she is independent with all mobilities and ambulation without AD Social History Household Members family Living Arrangements House Number of Floors (Floors) One Floor Number of Stairs To Enter/Railing? 1 step to enter Home Environment Standard Height Toilet,Walk in Shower Additional Social History Comment pt lives with her son but son works; stated that her daughter is ~ 1 mile away from her house and can also assist if needed M2 PT-IP Current Condition Start: 11/20/21 13:44 Freq: NEEDED Status: Active Protocol: Document 11/20/21 11:55 AB (Rec: 11/20/21 13:53 AB [email or web address]) Physical Therapy Current Condition Current Condition Evaluation Date 11/20/21 Treatment Diagnosis UTI; breast CA; difficulty in walking Onset Date 11/18/21 M3 PT-IP Subjective Start: 11/20/21 13:44 Freq: NEEDED Status: Active Protocol: Document 11/20/21 11:55 AB (Rec: 11/20/21 13:53 AB [email or web address]) Subjective Physical Therapy Visit Type Type Initial Evaluation Visit Start Time 11:55 Visit Stop Time 12:15 Total Visit Minutes 20 Number of PET FOOD DEBONER Visits 0 Physical Therapy Visit Comments Patient Comments agreeable to do PT Therapy Pain Assessment Pain When Pain Assessed At Rest Pain Present Pain Present Pain Reported Location Body aches Scale Used pain scale not stated Pain Management Techniques Distraction,Modification of Treatment M4 PT-IP Mobility and Gait Start: 11/20/21 13:44 Freq: NEEDED Status: Active Protocol: Document 11/20/21 11:55 AB (Rec: 11/20/21 13:53 AB [email or web address]) PT-Bed Mobility Assessment Sit to Supine Sit to Supine Maximum Assistance PT-Transfer Assessment Sit to and From Stand Sit to and from Stand Minimal Assistance,Moderate Assistance,1 Person Assistance ,Use of Upper Extremities Equipment Transfer Assistive Device Gait Belt,Front Wheeled Walker Orthotic/Prosthetic Devices or Brace: No Transfers Transfer Destination Chair Transfer Technique ambulated Transfer Ability Level of Assist Minimal Assistance,Moderate Assistance,1 Person Assistance ,Use of Upper Extremities Comments Mobility Comments pt completed supine to sit max A and max cues. able to sit on EOB SBA. completed sit to stand min to mod A and cues and ambulated in room ~ 12 ft using FWW min to mod A with increase assistance towards end of ambulation and c/o fatigue. pt agreed to sit up on chair for lunch. positioned on the chair. call light and table placed within reach. Gait Assessment Gait Gait Assistance Required: Minimum Assistance,Moderate Assistance Distance (Feet) 12 Able to Maintain Weight Bearing Status Yes During Gait Assistive Devices Assistive Device Gait Belt,Front Wheeled Walker Orthotic/Prosthetic Devices or Brace: No Gait Deviations General Gait Pattern Decreased Stride Length, Decreased Feet Clearance,Step- to Gait Factors Limiting Gait Function Factors Limiting Gait Function Decreased Activity Tolerance, Decreased Strength,Pain,Poor Balance,Poor Safety Awareness PT-Balance Assessment Sitting Balance and Reactions Static Sitting Balance Ability Good Dynamic Sitting Balance Ability Fair Standing Balance and Reactions Static Standing Balance Ability Fair Dynamic Standing Balance Ability Poor Device Used FWW M5 PT-IP Objective Assessments Start: 11/20/21 13:44 Freq: NEEDED Status: Active Protocol: Document 11/20/21 11:55 AB (Rec: 11/20/21 13:53 AB [email or web address]) Orientation Orientation/Cognition Level of Alertness Alert Orientation Name,Place,Situation Safety Awareness Decreased Safety Awareness Memory Description Short Term Impaired Gross Range of Motion Lower Extremity ROM Assessment Within Functional Limits Strength Lower Extremity Strength Assessment Bilaterally Impaired Hip 3+/5 Knee 3+/5 Sensation Assessment Sensation Gross Sensation WNL Muscle Tone Muscle Tone WNL Yes M6 PT-IP Treatment Start: 11/20/21 13:44 Freq: NEEDED Status: Active Protocol: Document 11/20/21 11:55 AB (Rec: 11/20/21 13:53 AB [id number]) Physical Therapy Treatment Education Education Provided Safety M7 PT-IP Assessment and Plan Start: 11/20/21 13:44 Freq: NEEDED Status: Active Protocol: Document 11/20/21 11:55 AB (Rec: 11/20/21 13:53 AB [id number]) PT Summary Assessment and Plan Potential Rehabilitation Potential Fair Status of Condition at Evaluation Evolving Summary Impairments Pain,ROM,Strength,Balance, Coordination,Sensation,Tone, Cognition,Bed Mobility, Transfers,Gait,Activity Tolerance Assessment Summary pt requiring min to mod A with transfers and ambulation and max A for bed mobility. pt has decrease activity tolerance affecting mobility independence. pt usually alone at home and will not have asssistance available for most of the day. pt will need to be more independent for safe d/c and will require SNF rehab at this time. will continue to assess progress. Goals Bed Mobility Goal Independent Transfer Goal Independent,Front Wheeled Walker Gait Goal Independent,Front Wheel Walker Gait Distance 150 Other Goals improve ambulation without AD 200 ft SBA up/down 1 step SBA Days to Meet Goals 10 Frequency of Treatment Frequency Of Treatment Once a Day Treatment Plan Physical Therapy Treatment Plan Bed Mobility Training,Transfer Training,Gait Training, Therapeutic Exercise,Balance Retraining,Discharge Planning, Hot or Cold Pack,Neuromuscular Re-ed,Coordination Retraining Recommendations To Nursing Amount of Assist Needed 1 Person Assist Discharge Recommendations PT Discharge Recommendations SNF Rehab Equipment Needed for Home Before FWW if not safe without AD Discharge Transportation Needs at Discharge Private Vehicle,Wheelchair/ Cabulance
[2021-11-20] MEDS: HYDROCODONE/ACET 5/325 TABLET 1 TAB PO (16:02)
--- NOTE | 2021-11-20 17:10 | PC.NURSE ---
1600- Pt c/o mid back pain. States she feels her abd is quite bloated. Noted abd girth increased from AM assessment. Pt states she normally takes a diuretic combination pill. Reviewed assessment findings with Dr. Herrera. Orders received to dc IVFs. hydrocodone given for back pain 11/08 and pt assisted back to bed from chair and repositioned for comfort. Post intervention, pt noted to be resting comfortably in bed with eyes closed and even/unlabored RR. Supportive daughter at bedside.
--- NOTE | 2021-11-20 17:20 | P.PN_ITS ---
Subjective Subjective Date Patient Seen: 11/20/21 Time Patient Seen: 17:21 Interval history: 80 F admitted with strep bacteremia. Continues to have some fevers overnight, and still feels ill and has muscle aches and joint pains. Organism is strep alactolyticus or a group D strep. Will continue IV ceftriaxone. Repeat cultures are negative thus far. Exam Vital Signs (past 8 hours): - 11/20/21 12:00 11/20/21 12:57 11/20/21 14:00 Temperature 100.6 F H 100.6 F H 98.5 F Pulse Rate 102 H Respiratory Rate 19 Blood Pressure 132/53 L Pulse Oximetry 97 Oxygen Delivery Method Room Air Oxygen Flow Rate 0 Narrative Exam Narrative: General:? Patient is well developed and well nourished, in no distress at this time, though mildly ill appearing. HEENT:? Normocephalic, atraumatic, extraocular muscles intact, oral pharynx is clear and mucous membranes are moist. Neck: supple and symmetric, trachea is midline, no cervical adenopathy. Negative for JVD Chest:? Normal AP diameter and contour without kyphoscoliosis, no tachypnea, equal chest rise bilaterally. Chest port without induration or erythema. Lungs:? CTA b/l no wheezing rhonchi or rales. Cardio:?RRR no m/r/g. Abdomen: S NT ND. No CVA tenderness. Musculoskeletal:? Muscle strength and tone are equal within normal limits, no deformity. Extremities: No edema or joint effusions. No cyanosis or clubbing. Skin:? Pale,? Warm to touch,dry and intact without rashes, ulcerations or petechiae.? Neuro:? Alert and orientated x3,? sensation to touch intact in all extremities, no gross deficits noted of cranial nerves. Psych:? Patient has a well-kept appearance, appropriate affect, mental status attitude thought context and judgment are appropriate for age. Objective Labs Result Diagrams: 11/20/21 05:30 11/20/21 05:30 Labs: Laboratory Results - last 24 hr 11/20/21 11/20/21 05:30 05:30 WBC 1.3 L* RBC 2.73 L Hgb 8.8 L Hct 26.1 L MCV 95.5 MCH 32.1 MCHC 33.6 RDW 16.7 H Plt Count 65 L Neut % (Auto) 66.1 Lymph % (Auto) 24.0 L Bonner % (Auto) 7.0 Eos % (Auto) 2.0 Baso % (Auto) 0.9 Neut # (Auto) 900 L Lymph # (Auto) 300 L Bonner # (Auto) 100 Eos # (Auto) 0 Baso # (Auto) 0 Platelet Estimate Decreased on smear RBC Morphology See below Anisocytosis 2+ H Sodium 134 L Potassium 3.4 Chloride 109 H Carbon Dioxide 22 BUN 13 Creatinine 0.56 Estimated GFR > 60 BUN/Creatinine Ratio 23.2 H Glucose 158 H Calcium 6.9 L Magnesium 2.0 PFSH Medical History Carpal tunnel syndrome (Unknown) Cirrhosis Diverticular disease (Unknown) Hyperglycemia (Unknown) Hyperlipemia (Unknown) Hypertension (Unknown) 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 Right hip pain Splenomegaly Strain of tendon of left rotator cuff Surgical History H/O right wrist surgery History of carpal tunnel release (Unknown) History of partial mastectomy of left breast (07/29/21) History of surgery Hx of appendectomy (Unknown) Hx of cataract surgery (Unknown) Hx of cholecystectomy Hx of eye surgery Status post cholecystectomy Family History Father Cancer Mother Cancer Social History household members: family Smoking Status: Never smoker alcohol intake: never substance use type: does not use Assessment & Plan Assessment & Plan narrative: Patricia Giordano is admitted for further evaluation and management of a urinary tract infection. 1. Strep alactolysis bacteremia, acute and present on admission Blood culture for positive on admission with a group D strep. continue IV ceftriaxone 2g q 24 hours. Monitor fevers and blood cultures. -repeat blood culture if fevers continue, despite repeat being negative -concern for possible port infection, however without persistent bacteremia this seems less likely and will need to further discuss need for port removal. - unclear if acute cystitis led to bacteremia, though group D strep not typical for UTI. 2. Acute cystitis - will be more than adequately treated with above ceftriaxone. Unclear if contributed to bacteremia. 3. Diabetes type 2, suboptimally controlled A1c is 6.2 She will receive Glargine 5 units at breakfast and bedtime, low dose correctional scale ACHS. Carb controlled diet 4. Hypertension/CAD She normally takes lisinopril/hctz 20/07 and will receive lisinopril 20 mg daily Continue home dose of amlodipine 5 mg po bid Continue home dose of zetia 10 mg at bedtime 5. Pancytopenia - likely related to chemotherapy treatment for known breast CA. Less likely sepsis at this time. - continue to monitor,. VTE Prophylaxis: Wells risk score 1 Enoxaparin 40 mg subQ once daily as long as plt >50. Dispo: likely d/c to home, timing likely 2-3 days depending on symptoms and bacterial clearance from bloodstream and /or need for further interventions. Code status: Full code as discussed with the patient who identifies granddaughter Oanh Mock as her surrogate and POA. [X] I have utilized all available immediate resources to obtain, update, or review of the patient's current medications Time Spent With Patient Critical Care time: I spent a total of [] minutes of critical care time on this patient's care today; this time is exclusive of procedural time. Quality VTE Deep Vein Thrombosis/Pulmonary Embolism Present on Admission: No
--- NOTE | 2021-11-20 18:01 | DIET.CONS ---
Dietary Consultation Note Admission Date: 11/18/2021 22:15 Assessment: 80 y/o F currently treated for breast cancer. RD consulted due to poor PO. Patricia endorses adequate PO prior to admit. Denies any weight loss, which is supported by EMR wt hx. States her appetite since admit has been poor due to overall not feeling well. Denies changes in taste or appetite r/t chemo tx. Also states she was unaware that she could choose food from the menu. was receiving foods she did not want reportedly. During our visit, dinner arrived and she seemed satisfied with food options. Anticipates improved PO. Usual Diet Recall: B: cereal with milk L: leftovers D: fish with vegetables (sometimes children help her cook meals) Ht: 167.64 cm Wt: 83.8 kg BMI: 29.8 UBW: 180-185# Last BM: 11/19/21 (11/19/21 22:30) MNA: 14 Jim Score: 17 Diet: 11/18/21 Breakfast Carbohydrate Consistent Diet Diet Modifications: Carbohydrate level: Large (4 CHO) Bedtime snack: Yes Nutrition Percent Meal Consumed 0% 11/20/21 13:00 Percent Meal Consumed 5 11/20/21 09:50 Percent Meal Consumed 25% 11/19/21 18:00 Labs: RBC 2.73 X10^6/uL (4.0-5.2) L 11/20/21 05:30 Hgb 8.8 g/dL (12.0-16.0) L 11/20/21 05:30 Hct 26.1 % (36-46) L 11/20/21 05:30 Creatinine 0.56 mg/dL (0.52-1.04) 11/20/21 05:30 Hemoglobin A1c 6.4 % (4.0-6.0) H 11/18/21 20:55 Lactate 1.6 mmol/L (0.7-2.1) 11/19/21 16:17 Nutrition Diagnosis: Inadequate PO r/t overall feeling unwell and not receiving foods she wanted to eat aeb pt report and PO documented Interventions: Discussed appetite changes and importance of keeping up intake while getting cancer treatments. Provide protein shakes at meals if PO <50% Monitoring/Evaluations: consult prn Electronically Signed by: Rowan Hassan 11/20/21 18:[address] [id number]
[2021-11-20] MEDS: EZETIMIBE 10 MG TABLET PO (21:05)
[2021-11-21] VITALS (10 sets, daily range): BP systolic 114–140; BP diastolic 58–64; PULSE 86–100; RESP 17–25; TEMP 36.3–38.4; O2SAT 95–98
[2021-11-21] MEDS: ONDANSETRON 4 MG/2 ML INJ IV (03:45)
[2021-11-21 03:57] LABS: Vancomycin Trough 5.2 ug/mL (10-20)
--- NOTE | 2021-11-21 06:51 | PC.NURSE ---
Shift Note: Patient was alert and orientedx3, with complaint of low back pain, pain meds given and verbalized relief, VSS, able to use bedside commode with one person assist. Patient slightly dyspneic on activity, O2 sat maintained >92% at room air.
[2021-11-21] MEDS: cefTRIAXone 2,000 MG in SODIUM CHLORIDE 0.9% 100 ML 200 ML IV (08:26)
[2021-11-21] MEDS: INSULIN LISPRO 100 UNIT/ML 3ML VIAL SUBCUT ×2 (08:26→12:08)
[2021-11-21] MEDS: ASPIRIN EC 81 MG TABLET PO (08:27)
[2021-11-21] MEDS: AMLODIPINE 5 MG TABLET PO ×2 (08:27→21:37)
[2021-11-21] MEDS: NYSTATIN POWDER 15GM 1 APPLIC TOP ×2 (08:27→21:38)
[2021-11-21] MEDS: ENOXAPARIN 40 MG/0.4 ML SYRINGE SUBCUT (08:27)
[2021-11-21] MEDS: INSULIN GLARGINE 100 UNIT/ML 3ML PEN SUBCUT ×2 (10:01→21:40)
--- NOTE | 2021-11-21 10:57 | CM.DPC ---
Addendum entered by Lillian Decker R.N. 11/21/21 14:23: Left the oncology department a message about patient, and faxed the referral. [facility] was also sent the referral. Addendum entered by Lillian Decker R.N. 11/21/21 13:33: Dr. Herrera indicated that patient will need 2 weeks of IV antibiotics of Ceftriaxone. Patient will need a Vancomycin lock for port, which is what Dr. Herrera is working on. Did call [facility], spoke to Ash[facility] pharmacist. She indicated, there may be a co-pay with the [employer], if she does not need nursing, would not be as expencive. Can order her home health as well. Other option if for her to have treatment here at oncology, since she is a chemo patient and next dose is early November. Spoke to patient's daughter, Oanh, who is DPOA, was going to speak to her daughter, Anh. She then called back and they decided, having her come her to oncology for the treatment might be better, they would work out transportation. Also, in agreement for patient to have home health, for nursing and P.T, they have no preferences upon agencies. Will go ahead and leave a message over at the oncology office as well. Have already sent [facility] the referral. Original Note: DCP Cont: Discussed patient during team rounds. P.T. recommended alf. Dr. Herrera indicated that there is a chance that patient may need intermediate IV ABO, will depend on what the daughter indicates, and if port will need to be removed. Her next dose of chemo is due early November. Asked patient about going to a alf facility, and she refused. She confirmed that she lives with her son, but daughter, Anh, lives close to her and checks on her several times during the day. Her other daighter, Oanh Mock, lives in [facility]. Patient is not opposed to home health. If patient does need intermediate IV ABO, she may be able to get this at the infusion clinic, since she is an oncology patient. P: DCP to continue to follow for any needs. At this time, patient is refusing skilled rehab, barrier to her going to skilled would be her chemo. Lillian Decker, RN/Workday Manager
--- NOTE | 2021-11-21 11:30 | PT.IPTN ---
Current Diagnoses Urinary tract infection, site not specified (11/18/21) Physical Therapy Treatment Note M2 PT-IP Current Condition Start: 11/20/21 13:44 Freq: NEEDED Status: Active Protocol: Document 11/20/21 11:55 AB (Rec: 11/20/21 13:53 AB [email or web address]) Physical Therapy Current Condition Current Condition Evaluation Date 11/20/21 Treatment Diagnosis UTI; breast CA; difficulty in walking Onset Date 11/18/21 M3 PT-IP Subjective Start: 11/20/21 13:44 Freq: NEEDED Status: Active Protocol: Document 11/21/21 11:30 AB (Rec: 11/21/21 13:36 AB [email or web address]) Subjective Physical Therapy Visit Type Type Treatment Note Visit Start Time 11:30 Visit Stop Time 11:55 Total Visit Minutes 25 Number of SHOEMAKING FINISHER Visits 0 Physical Therapy Visit Comments Patient Comments pt is agreeable to do PT M4 PT-IP Mobility and Gait Start: 11/20/21 13:44 Freq: NEEDED Status: Active Protocol: Document 11/21/21 11:30 AB (Rec: 11/21/21 13:36 AB [email or web address]) PT-Bed Mobility Assessment Supine to Sit Supine to Sit Maximum Assistance PT-Transfer Assessment Sit to and From Stand Sit to and from Stand Contact Guard Assistance, Minimal Assistance,Use of Upper Extremities Equipment Transfer Assistive Device Gait Belt,Front Wheeled Walker Orthotic/Prosthetic Devices or Brace: No Transfers Transfer Destination Chair Transfer Technique ambulated Transfer Ability Level of Assist Contact Guard Assistance, Minimal Assistance,1 Person Assistance,Use of Upper Extremities Comments Mobility Comments pt completed supine to sit max A and max cues. (+) SOB. O2 sat: 98% at room air. completed sit to stand CGA to min A and cues and ambulated in room using FWW CGA to min A towards end of ambulation. completed ~ 30 ft. pt agreed to stay up on the chair. positioned pt on the chair. call light and table placed within reach. Gait Assessment Gait Gait Assistance Required: Contact Guard Assist,Minimum Assistance Distance (Feet) 30 Able to Maintain Weight Bearing Status Yes During Gait Assistive Devices Assistive Device Gait Belt,Front Wheeled Walker Orthotic/Prosthetic Devices or Brace: No Gait Deviations General Gait Pattern Decreased Stride Length, Decreased Feet Clearance Factors Limiting Gait Function Factors Limiting Gait Function Decreased Activity Tolerance, Decreased Strength,Poor Balance,Respiratory Distress M5 PT-IP Objective Assessments Start: 11/20/21 13:44 Freq: NEEDED Status: Active Protocol: Document 11/20/21 11:55 AB (Rec: 11/20/21 13:53 AB [id number]) Orientation Orientation/Cognition Level of Alertness Alert Orientation Name,Place,Situation Safety Awareness Decreased Safety Awareness Memory Description Short Term Impaired Gross Range of Motion Lower Extremity ROM Assessment Within Functional Limits Strength Lower Extremity Strength Assessment Bilaterally Impaired Hip 3+/5 Knee 3+/5 Sensation Assessment Sensation Gross Sensation WNL Muscle Tone Muscle Tone WNL Yes M6 PT-IP Treatment Start: 11/20/21 13:44 Freq: NEEDED Status: Active Protocol: Document 11/21/21 11:30 AB (Rec: 11/21/21 13:36 AB [email or web address]) Physical Therapy Treatment Education Education Provided Safety M7 PT-IP Assessment and Plan Start: 11/20/21 13:44 Freq: NEEDED Status: Active Protocol: Document 11/21/21 11:30 AB (Rec: 11/21/21 13:36 AB [email or web address]) PT Summary Assessment and Plan Potential Rehabilitation Potential Fair Summary Impairments Pain,ROM,Strength,Balance, Coordination,Sensation,Tone, Cognition,Bed Mobility, Transfers,Gait,Activity Tolerance Progress Towards Goals Slow Progress due to Activity Tolerance Assessment Summary pt requiring CGA to min A with mobility using FWW and continues to have decrease activity tolerance affecting mobility independence with increase assistance needs with increase activity. d/c plan depending on progress but will need to be more independent than current level. pt will require SNF rehab at this time . will continue to assess progress. Goals Bed Mobility Goal Independent Transfer Goal Independent,Front Wheeled Walker Gait Goal Independent,Front Wheel Walker Gait Distance 150 Other Goals improve ambulation without AD 200 ft SBA up/down 1 step SBA Days to Meet Goals 10 Frequency of Treatment Frequency Of Treatment Once a Day Treatment Plan Physical Therapy Treatment Plan Bed Mobility Training,Transfer Training,Gait Training, Therapeutic Exercise,Balance Retraining,Discharge Planning, Hot or Cold Pack,Neuromuscular Re-ed,Coordination Retraining Recommendations To Nursing Amount of Assist Needed 1 Person Assist Discharge Recommendations PT Discharge Recommendations SNF Rehab Equipment Needed for Home Before FWW if not safe without AD Discharge Transportation Needs at Discharge Private Vehicle,Wheelchair/ Cabulance
[2021-11-21 11:46] LABS: Hemoglobin 9.6 g/dL (12.0-16.0); Mean Corpuscular Volume 95.4 fL (80-100)
[2021-11-21 11:51] LABS: Hematocrit 28.7 % (36-46); Mean Corpuscular HGB Conc 33.5 % (30-36); Mean Corpuscular Hemoglobin 31.9 PG (26-34); Platelet Count 91 X10^3/uL (150-400); Red Blood Cell Count 3.01 X10^6/uL (4.0-5.2); Red Cell Distribution Width 16.8 % (11.6-14.8); White Blood Cell Count 2.6 X10^3/uL (4.5-11.0)
[2021-11-21 11:53] LABS: BUN Creatinine Ratio 21.1 (6-22); Blood Urea Nitrogen 12 mg/dL (7-17); Calcium 7.3 mg/dL (8.4-10.2); Carbon Dioxide 20 mmol/L (22-32); Chloride 106 mmol/L (98-107); Estimated Glomerular Filt Rate > 60 mL/min (>60); Glucose 215 mg/dL (80-110); HEMOLYSIS < 15 (0-50); Potassium 3.7 mmol/L (3.4-5.1); Sodium 134 mmol/L (137-145)
[2021-11-21 11:55] LABS: Add Manual Diff / Slide Review YES
[2021-11-21] MEDS: ACETAMINOPHEN 325 MG TABLET 650 MG PO ×2 (12:07→21:37)
[2021-11-21 12:15] LABS: Neutrophils Absolute Manual 1664 /uL (3000-5900); Total Cells Counted 100
[2021-11-21 12:17] LABS: Anisocytosis 1+
[2021-11-21] MEDS: HYDROCODONE/ACET 5/325 TABLET 1 TAB PO (13:51)
--- NOTE | 2021-11-21 20:00 | PM.PN.1 ---
Subjective Subjective Date Patient Seen: 11/21/21 Interval history: 80 F admitted with strep bacteremia. Continues to have some fevers today and still feels ill and has muscle aches and joint pains but mildly better. Organism is strep alactolyticus or a group D strep. Will continue IV ceftriaxone per ID recommendations for total 2 week course. Exam Vital Signs (past 8 hours): - 11/21/21 12:01 11/21/21 13:25 11/21/21 13:51 Temperature 101.2 F H 97.3 F L 97.6 F Pulse Rate 100 H Respiratory Rate 18 Blood Pressure 137/61 Pulse Oximetry 98 11/21/21 16:20 Temperature 99.1 F Pulse Rate 86 Respiratory Rate 17 Blood Pressure 114/64 Pulse Oximetry 95 Oxygen Delivery Method Room Air Oxygen Flow Rate 0 Narrative Exam Narrative: General:? Patient is well developed and well nourished, in no distress at this time, though mildly ill appearing. HEENT:? Normocephalic, atraumatic, extraocular muscles intact, oral pharynx is clear and mucous membranes are moist. Neck: supple and symmetric, trachea is midline, no cervical adenopathy. Negative for JVD Chest:? Normal AP diameter and contour without kyphoscoliosis, no tachypnea, equal chest rise bilaterally. Chest port without induration or erythema. Lungs:? CTA b/l no wheezing rhonchi or rales. Cardio:?RRR no m/r/g. Abdomen: S NT ND. No CVA tenderness. Musculoskeletal:? Muscle strength and tone are equal within normal limits, no deformity. Extremities: No edema or joint effusions. No cyanosis or clubbing. Skin:? Pale,? Warm to touch,dry and intact without rashes, ulcerations or petechiae.? Neuro:? Alert and orientated x3,? sensation to touch intact in all extremities, no gross deficits noted of cranial nerves. Psych:? Patient has a well-kept appearance, appropriate affect, mental status attitude thought context and judgment are appropriate for age. Objective Labs Result Diagrams: 11/21/21 11:25 11/21/21 11:25 Labs: Laboratory Results - last 24 hr 11/21/21 11/21/21 11/21/21 03:24 05:55 11:25 WBC 2.6 L D RBC 3.01 L Hgb 9.6 L Hct 28.7 L MCV 95.4 MCH 31.9 MCHC 33.5 RDW 16.8 H Plt Count 91 L Neut % (Auto) Not Reportable Lymph % (Auto) Not Reportable Wilcox % (Auto) Not Reportable Eos % (Auto) Not Reportable Baso % (Auto) Not Reportable Lymph # (Auto) Not Reportable Wilcox # (Auto) Not Reportable Baso # (Auto) Not Reportable Total Counted 100 Seg Neutrophils % 61.0 Band Neutrophils % 3.0 Lymphocytes % (Manual) 22.0 L Atypical Lymphs % 3.0 H Monocytes % (Manual) 7.0 Eosinophils % (Manual) 4.0 Neutrophils # (Manual) 1664 L RBC Morphology See below Anisocytosis 1+ H Sodium Potassium Chloride Carbon Dioxide BUN Creatinine Estimated GFR BUN/Creatinine Ratio Glucose Calcium Vancomycin Peak Cancelled Vancomycin Trough 5.2 L 11/21/21 11:25 WBC RBC Hgb Hct MCV MCH MCHC RDW Plt Count Neut % (Auto) Lymph % (Auto) Wilcox % (Auto) Eos % (Auto) Baso % (Auto) Lymph # (Auto) Wilcox # (Auto) Baso # (Auto) Total Counted Seg Neutrophils % Band Neutrophils % Lymphocytes % (Manual) Atypical Lymphs % Monocytes % (Manual) Eosinophils % (Manual) Neutrophils # (Manual) RBC Morphology Anisocytosis Sodium 134 L Potassium 3.7 Chloride 106 Carbon Dioxide 20 L BUN 12 Creatinine 0.57 Estimated GFR > 60 BUN/Creatinine Ratio 21.1 Glucose 215 H Calcium 7.3 L Vancomycin Peak Vancomycin Trough PFSH Medical History Carpal tunnel syndrome (Unknown) Cirrhosis Diverticular disease (Unknown) Hyperglycemia (Unknown) Hyperlipemia (Unknown) Hypertension (Unknown) 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 Right hip pain Splenomegaly Strain of tendon of left rotator cuff Surgical History H/O right wrist surgery History of carpal tunnel release (Unknown) History of partial mastectomy of left breast (07/29/21) History of surgery Hx of appendectomy (Unknown) Hx of cataract surgery (Unknown) Hx of cholecystectomy Hx of eye surgery Status post cholecystectomy Family History Father Cancer Mother Cancer Social History household members: family Smoking Status: Never smoker alcohol intake: never substance use type: does not use Assessment & Plan Assessment & Plan narrative: Patricia Giordano is admitted for further evaluation and management of a strep bacteremia. 1. Strep alactolysis bacteremia, acute and present on admission Blood culture for positive on admission with a group D strep. ?continue IV ceftriaxone 2g q 24 hours for two weeks from last positive culture. Monitor fevers and blood cultures. Repeated blood cultures today for another fever. -repeat blood culture if fevers continue, despite repeat being negative -concern for possible port infection, however without persistent bacteremia this seems less likely. Discussed with ID who recommended 2 weeks of IV ceftriaxone at this time. Will need to come up with antibiotic lock therapy protocol with pharmacy as well. -unclear if acute cystitis led to bacteremia, though group D strep not typical for UTI 2. Acute cystitis ?- will be more than adequately treated with above ceftriaxone. Unclear if contributed to bacteremia. 3. Diabetes type 2, suboptimally controlled A1c is 6.2 She will receive Glargine 5 units at breakfast and bedtime, low dose correctional scale ACHS. Carb controlled diet 4. Hypertension/CAD She normally takes lisinopril/hctz 20/07 and will receive lisinopril 20 mg daily Continue home dose of amlodipine 5 mg po bid Continue home dose of zetia 10 mg at bedtime 5. Pancytopenia ?- likely related to chemotherapy treatment for known breast CA. Less likely sepsis at this time. ?- continue to monitor,. VTE Prophylaxis: Wells risk score 1 Enoxaparin 40 mg subQ once daily as long as plt >50. Dispo: likely d/c to home, timing likely 2-3 days depending on symptoms and bacterial clearance from bloodstream and /or need for further interventions. Code status: Full code as discussed with the patient who identifies granddaughter Oanh Mock as her surrogate and POA. [X] I have utilized all available immediate resources to obtain, update, or review of the patient's current medications Time Spent With Patient Critical Care time: I spent a total of [] minutes of critical care time on this patient's care today; this time is exclusive of procedural time. Quality VTE Deep Vein Thrombosis/Pulmonary Embolism Present on Admission: No
[2021-11-21] MEDS: EZETIMIBE 10 MG TABLET PO (21:37)
[2021-11-21] MEDS: METFORMIN HCL 500 MG TABLET PO (21:37)
[2021-11-22] VITALS (7 sets, daily range): BP systolic 103–128; BP diastolic 47–63; PULSE 75–97; RESP 17–22; TEMP 36.6–38.2; O2SAT 94–97
[2021-11-22 06:22] LABS: Hematocrit 28.4 % (36-46); Hemoglobin 9.6 g/dL (12.0-16.0); Mean Corpuscular HGB Conc 33.8 % (30-36); Mean Corpuscular Hemoglobin 32.2 PG (26-34); Mean Corpuscular Volume 95.4 fL (80-100); Platelet Count 95 X10^3/uL (150-400); Red Blood Cell Count 2.98 X10^6/uL (4.0-5.2); White Blood Cell Count 2.8 X10^3/uL (4.5-11.0)
[2021-11-22 06:24] LABS: BUN Creatinine Ratio 21.4 (6-22); Blood Urea Nitrogen 12 mg/dL (7-17); Calcium 7.4 mg/dL (8.4-10.2); Carbon Dioxide 21 mmol/L (22-32); Chloride 108 mmol/L (98-107); Estimated Glomerular Filt Rate > 60 mL/min (>60); Glucose 130 mg/dL (80-110); HEMOLYSIS < 15 (0-50); Potassium 3.3 mmol/L (3.4-5.1); Sodium 135 mmol/L (137-145)
[2021-11-22 06:30] LABS: Add Manual Diff / Slide Review YES
[2021-11-22 06:39] LABS: C-Reactive Protein Quant 6.1 mg/dL (<1.0)
[2021-11-22 06:52] LABS: Erythrocyte Sedimentation Rate 36 MM/HR (0-20)
[2021-11-22 07:08] LABS: Neutrophils Absolute Manual 1932 /uL (3000-5900); Total Cells Counted 100
[2021-11-22 07:09] LABS: Anisocytosis 1+
[2021-11-22 07:10] LABS: Platelet Estimate Decreased on smear
[2021-11-22] MEDS: AMLODIPINE 5 MG TABLET PO ×2 (08:33→21:06)
[2021-11-22] MEDS: METFORMIN HCL 500 MG TABLET PO ×2 (08:33→21:07)
[2021-11-22] MEDS: ENOXAPARIN 40 MG/0.4 ML SYRINGE SUBCUT (08:33)
[2021-11-22] MEDS: ASPIRIN EC 81 MG TABLET PO (08:33)
[2021-11-22] MEDS: INSULIN LISPRO 100 UNIT/ML 3ML VIAL SUBCUT ×2 (08:35→17:38)
[2021-11-22] MEDS: INSULIN GLARGINE 100 UNIT/ML 3ML PEN SUBCUT (08:35)
[2021-11-22] MEDS: cefTRIAXone 2,000 MG in SODIUM CHLORIDE 0.9% 100 ML 200 ML IV (08:58)
--- NOTE | 2021-11-22 13:05 | DI.CT.S_ITS ---
PROCEDURE: CT ABDOMEN PELVIS W CON INDICATIONS: RLQ pain, fever, abd distension. ? diverticulitis TECHNIQUE: After the administration of intravenous contrast, axial sections acquired from the lung bases to the pubic symphysis. Coronal and sagittal reformats were performed. For radiation dose reduction, the following was used: automated exposure control, adjustment of mA and/or kV according to patient size. COMPARISON: [facility], CT, CT ABDOMEN PELVIS W CON, 07/11/2021, 18:32. FINDINGS: Lower thorax: The lung bases are clear. Heart size normal. No hiatal hernia. Liver: Hepatic cirrhosis with recanalization the umbilical vein. Biliary system: Cholecystectomy. Pancreas: Unremarkable without mass or inflammation evident. Spleen: The spleen is enlarged at 16.7 cm. No intrinsic mass lesion. Adrenals: Normal morphology and density. Reproductive system: Unremarkable as visualized. Urinary system: Normal renal size and attenuation. No renal calculi, hydronephrosis, or solid mass present. Urinary bladder unremarkable. Gastrointestinal system: There is wall thickening and adjacent inflammatory change involving the duodenum. No obstruction. Multiple diverticula arise from the sigmoid colon without evidence of diverticulitis. And there is suggestion of wall thickening involving the descending and sigmoid colon which probably related to nondistention Appendix: No findings to suggest acute appendicitis. Peritoneal spaces: No mesenteric or retroperitoneal adenopathy. No free air. Ascites has increased from the prior Vasculature: The IVC, aorta and iliac vasculature are unremarkable. Abdominal wall: Abdominal wall intact without evidence of ventral or inguinal hernias. Musculoskeletal: Normal bone mineralization. Degenerative disc disease and arthropathy noted in lower lumbar spine. No acute fractures. IMPRESSION: 1. Duodenal wall thickening and adjacent inflammatory change probably reflects acute duodenitis without obstruction. 2. Diverticulosis without evidence of focal diverticulitis. The descending and transverse colon shows wall thickening probably related to nondistention. 3. Hepatic cirrhosis, splenomegaly and moderate ascites, increased from the prior Approved by: Cayden Potts M.D. on 11/22/2021 at 13:56
--- NOTE | 2021-11-22 14:18 | PC.NURSE ---
Dr. Herrera in to see pt and notified of 2 diarrhea stools. C.diff ordered; abd CT done.
--- NOTE | 2021-11-22 14:18 | PC.NURSE ---
port needle changed to powerport 3/4 needle
--- NOTE | 2021-11-22 15:56 | PT.IPTN ---
Current Diagnoses Urinary tract infection, site not specified (11/18/21) Physical Therapy Treatment Note M2 PT-IP Current Condition Start: 11/20/21 13:44 Freq: NEEDED Status: Active Protocol: Document 11/20/21 11:55 AB (Rec: 11/20/21 13:53 AB [id number]) Physical Therapy Current Condition Current Condition Evaluation Date 11/20/21 Treatment Diagnosis UTI; breast CA; difficulty in walking Onset Date 11/18/21 M3 PT-IP Subjective Start: 11/20/21 13:44 Freq: NEEDED Status: Active Protocol: Document 11/22/21 15:56 AW (Rec: 11/22/21 16:12 AW [id number]) Subjective Physical Therapy Visit Type Type Treatment Note Visit Start Time 15:38 Visit Stop Time 15:56 Total Visit Minutes 18 Notes Pt's daughter, Oanh, was in the room. Number of SALES SUPPORT ADMINISTRATOR Visits 0 Physical Therapy Visit Comments Patient Comments Pt is agreeable to do PT even though the userADgents game is on . Therapy Pain Assessment Pain When Pain Assessed At Rest Pain Present Pain Present Pain Reported Location Body aches Scale Used not quantified M4 PT-IP Mobility and Gait Start: 11/20/21 13:44 Freq: NEEDED Status: Active Protocol: Document 11/22/21 15:56 AW (Rec: 11/22/21 16:12 AW [id number]) PT-Bed Mobility Assessment Supine to Sit Supine to Sit Minimal Assistance,1 Person Assistance PT-Transfer Assessment Sit to and From Stand Sit to and from Stand Contact Guard Assistance,Use of Upper Extremities Equipment Transfer Assistive Device Gait Belt,Front Wheeled Walker Orthotic/Prosthetic Devices or Brace: No Transfers Transfer Destination Toilet Transfer Technique ambulated with FWW Transfer Ability Level of Assist Contact Guard Assistance, Minimal Assistance,1 Person Assistance,Use of Upper Extremities Comments Mobility Comments Pt completed supine to sit min A with no overt SOB. She stood min A and used FWW to ambulate a total of 70 feet with FWW CGA and one standing rest break. She transferred to the toilet with heavy use of R grab bars and was left with call light in hand. She agreed to call nursing when ready to get up and back to bed. Gait Assessment Gait Gait Assistance Required: Contact Guard Assist,Minimum Assistance Distance (Feet) 70 Assistive Devices Assistive Device Gait Belt,Front Wheeled Walker Orthotic/Prosthetic Devices or Brace: No Gait Deviations General Gait Pattern Decreased Stride Length, Decreased Feet Clearance, Flexed Trunk Factors Limiting Gait Function Factors Limiting Gait Function Decreased Activity Tolerance, Decreased Strength,Poor Balance Comments Gait Comments Pt needs cues to keep walker closer for optimal support. PT-Balance Assessment Sitting Balance and Reactions Static Sitting Balance Ability Good Dynamic Sitting Balance Ability Fair Standing Balance and Reactions Static Standing Balance Ability Fair Dynamic Standing Balance Ability Fair Device Used FWW M5 PT-IP Objective Assessments Start: 11/20/21 13:44 Freq: NEEDED Status: Active Protocol: Document 11/20/21 11:55 AB (Rec: 11/20/21 13:53 AB [id number]) Orientation Orientation/Cognition Level of Alertness Alert Orientation Name,Place,Situation Safety Awareness Decreased Safety Awareness Memory Description Short Term Impaired Gross Range of Motion Lower Extremity ROM Assessment Within Functional Limits Strength Lower Extremity Strength Assessment Bilaterally Impaired Hip 3+/5 Knee 3+/5 Sensation Assessment Sensation Gross Sensation WNL Muscle Tone Muscle Tone WNL Yes M6 PT-IP Treatment Start: 11/20/21 13:44 Freq: NEEDED Status: Active Protocol: Document 11/22/21 15:56 AW (Rec: 11/22/21 16:12 AW [id number]) Physical Therapy Treatment Education Education Provided Safety M7 PT-IP Assessment and Plan Start: 11/20/21 13:44 Freq: NEEDED Status: Active Protocol: Document 11/22/21 15:56 AW (Rec: 11/22/21 16:12 AW [id number]) PT Summary Assessment and Plan Potential Rehabilitation Potential Good Status of Condition at Evaluation Evolving Summary Impairments Pain,ROM,Strength,Balance, Coordination,Sensation,Tone, Cognition,Bed Mobility, Transfers,Gait,Activity Tolerance Progress Towards Goals Slow Progress due to Medical Issues,Slow Progress due to Activity Tolerance Assessment Summary Pt improved bed mobility to min assist and was able to increase gait distance with FWW. Continued impairment in activity tolerance and strength are rate limiting factors. Depending on progress , pt may be safe to discharge home with 24/7 assist and home health PT. SNF rehab will be required if unable to progress mobility independence. Goals Bed Mobility Goal Independent Transfer Goal Independent,Front Wheeled Walker Gait Goal Independent,Front Wheel Walker Gait Distance 150 Other Goals improve ambulation without AD 200 ft SBA up/down 1 step SBA Days to Meet Goals 10 Frequency of Treatment Frequency Of Treatment Once a Day Treatment Plan Physical Therapy Treatment Plan Bed Mobility Training,Transfer Training,Gait Training, Therapeutic Exercise,Balance Retraining,Discharge Planning, Hot or Cold Pack,Neuromuscular Re-ed,Coordination Retraining Recommendations To Nursing Amount of Assist Needed Standby Assistance Discharge Recommendations PT Discharge Recommendations Home with Assistance,Home with 24/ Assist Available,Home Health,SNF Rehab,Home vs SNF Equipment Needed for Home Before FWW if not safe without AD Discharge Transportation Needs at Discharge Private Vehicle,Wheelchair/ Cabulance
--- NOTE | 2021-11-22 16:36 | PM.PN.1 ---
Subjective Subjective Date Patient Seen: 11/22/21 Interval history: 80 F admitted with strep bacteremia. Continues to have some fevers today and still feels ill. She has some RLQ pain today and diarrhea. CT scan obtained which showed worsening RLQ fluid and ascites, cirrhosis. Started cefazolin lock therapy today. Exam Vital Signs (past 8 hours): - 11/22/21 09:32 11/22/21 12:00 11/22/21 16:00 Temperature 97.8 F 97.9 F Pulse Rate 75 77 Respiratory Rate 18 17 Blood Pressure 108/50 L 110/61 Pulse Oximetry 94 96 97 Oxygen Delivery Method Room Air Oxygen Flow Rate 0 Narrative Exam Narrative: General:? Patient is well developed and well nourished, in no distress at this time, though mildly ill appearing. HEENT:? Normocephalic, atraumatic, extraocular muscles intact, oral pharynx is clear and mucous membranes are moist. Neck: supple and symmetric, trachea is midline, no cervical adenopathy. Negative for JVD Chest:? Normal AP diameter and contour without kyphoscoliosis, no tachypnea, equal chest rise bilaterally. Chest port without induration or erythema. Lungs:? CTA b/l no wheezing rhonchi or rales. Cardio:?RRR no m/r/g. Abdomen: soft, RLQ tenderness, mild, slight distension. Musculoskeletal:? Muscle strength and tone are equal within normal limits, no deformity. Extremities: No edema or joint effusions. No cyanosis or clubbing. Skin:? Pale,? Warm to touch,dry and intact without rashes, ulcerations or petechiae.? Neuro:? Alert and orientated x3,? sensation to touch intact in all extremities, no gross deficits noted of cranial nerves. Psych:? Patient has a well-kept appearance, appropriate affect, mental status attitude thought context and judgment are appropriate for age. Objective Labs Result Diagrams: 11/22/21 06:00 11/22/21 06:00 Labs: Laboratory Results - last 24 hr 11/22/21 11/22/21 11/22/21 06:00 06:00 06:00 WBC 2.8 L RBC 2.98 L Hgb 9.6 L Hct 28.4 L MCV 95.4 MCH 32.2 MCHC 33.8 RDW 17.0 H Plt Count 95 L Neut % (Auto) Not Reportable Lymph % (Auto) Not Reportable Rankin % (Auto) Not Reportable Eos % (Auto) Not Reportable Baso % (Auto) Not Reportable Lymph # (Auto) Not Reportable Rankin # (Auto) Not Reportable Baso # (Auto) Not Reportable Total Counted 100 Seg Neutrophils % 58.0 Band Neutrophils % 11.0 H Lymphocytes % (Manual) 23.0 L Monocytes % (Manual) 4.0 Eosinophils % (Manual) 3.0 Basophils % (Manual) 1.0 Neutrophils # (Manual) 1932 L Platelet Estimate Decreased on smear RBC Morphology See below Anisocytosis 1+ H ESR 36 H Sodium 135 L Potassium 3.3 L Chloride 108 H Carbon Dioxide 21 L BUN 12 Creatinine 0.56 Estimated GFR > 60 BUN/Creatinine Ratio 21.4 Glucose 130 H Calcium 7.4 L C-Reactive Protein 11/22/21 06:00 WBC RBC Hgb Hct MCV MCH MCHC RDW Plt Count Neut % (Auto) Lymph % (Auto) Rankin % (Auto) Eos % (Auto) Baso % (Auto) Lymph # (Auto) Rankin # (Auto) Baso # (Auto) Total Counted Seg Neutrophils % Band Neutrophils % Lymphocytes % (Manual) Monocytes % (Manual) Eosinophils % (Manual) Basophils % (Manual) Neutrophils # (Manual) Platelet Estimate RBC Morphology Anisocytosis ESR Sodium Potassium Chloride Carbon Dioxide BUN Creatinine Estimated GFR BUN/Creatinine Ratio Glucose Calcium C-Reactive Protein 6.1 H [facility] Medical History Carpal tunnel syndrome (Unknown) Cirrhosis Diverticular disease (Unknown) Hyperglycemia (Unknown) Hyperlipemia (Unknown) Hypertension (Unknown) 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 Right hip pain Splenomegaly Strain of tendon of left rotator cuff Surgical History H/O right wrist surgery History of carpal tunnel release (Unknown) History of partial mastectomy of left breast (07/29/21) History of surgery Hx of appendectomy (Unknown) Hx of cataract surgery (Unknown) Hx of cholecystectomy Hx of eye surgery Status post cholecystectomy Family History Father Cancer Mother Cancer Social History household members: family Smoking Status: Never smoker alcohol intake: never substance use type: does not use Assessment & Plan Assessment & Plan narrative: Patricia Giordano is admitted for further evaluation and management of a strep bacteremia. 1. Strep alactolysis bacteremia, acute and present on admission Blood culture for positive on admission with a group D strep. ?continue IV ceftriaxone 2g q 24 hours for two weeks from last positive culture. Monitor fevers and blood cultures. Repeated blood cultures today for another fever. -repeat blood culture if fevers continue, despite repeat being negative -concern for possible port infection, however without persistent bacteremia this seems less likely. Discussed with ID who recommended 2 weeks of IV ceftriaxone at this time along with cefazolin lock therapy which has been initiated with pharmacy help. -unclear if acute cystitis led to bacteremia, though group D strep not typical for UTI -given increasing fluid on CT will discuss diagnostic paracentesis today with patient. 2. Acute cystitis ?- will be more than adequately treated with above ceftriaxone. Unclear if contributed to bacteremia. 3. Diabetes type 2, suboptimally controlled A1c is 6.2 She will receive Glargine 5 units at breakfast and bedtime, low dose correctional scale ACHS. Carb controlled diet 4. Hypertension/CAD She normally takes lisinopril/hctz 20/07 and will receive lisinopril 20 mg daily Continue home dose of amlodipine 5 mg po bid Continue home dose of zetia 10 mg at bedtime 5. Pancytopenia ?- likely related to chemotherapy treatment for known breast CA, though given cirrhosis on CT that is also likely contributory. Less likely sepsis at this time. ?- continue to monitor,. 6. Hepatic cirrhosis with ascites. - will discuss diagnostic paracentesis with patient. Unclear if fluid has been sent so if performed today will send diagnostic studies and likely cytology as well given cancer history. VTE Prophylaxis: Wells risk score 1 Enoxaparin 40 mg subQ once daily as long as plt >50. Dispo: likely d/c to home, timing likely 1-3 days depending on symptoms and bacterial clearance from bloodstream and /or need for further interventions. Code status: Full code as discussed with the patient who identifies granddaughter Oanh Mock as her surrogate and POA. [X] I have utilized all available immediate resources to obtain, update, or review of the patient's current medications Time Spent With Patient Critical Care time: I spent a total of [] minutes of critical care time on this patient's care today; this time is exclusive of procedural time. Quality VTE Deep Vein Thrombosis/Pulmonary Embolism Present on Admission: No
[2021-11-22] MEDS: [UNRECOGNIZED DRUG - OTHER] TOP (16:37)
[2021-11-22] MEDS: CEFAZOLIN TOP (16:37)
[2021-11-22] MEDS: HEPARIN 10 UNIT/ML TOP (16:37)
[2021-11-22 17:10] LABS: Clostridium Difficile Tox PCR Negative for C. diff (Negative)
[2021-11-22] MEDS: POTASSIUM CHLORIDE 20 MEQ/15 ML UDC 40 MEQ PO (17:39)
--- NOTE | 2021-11-22 18:49 | PM.PROC.1 ---
Procedures Date/Time Date of procedure: 11/22/21 Time of procedure: 18:49 Paracentesis Time out performed: Yes Indication: possible spontaneous bacterial peritonitis Procedure: diagnostic paracentesis Location: RLQ Local anesthetic used: lidocaine 2% Amount of anesthesia used (ml): 3 Bedside ultrasound used: yes, real-time guidance Preparation: sterile prep and drape Amount of fluid obtained (ml): 60 Fluid: clear Size of needle used: 18 Post procedure exam: awake, alert, normal BP and normal HR Patient tolerated procedure: well and no complications Additional comments: Prior to the procedure formal consent was obtained from the patient and her daughter after discussion of risks and benefits of the procedure, and allowing the patient and daughter to ask any questions. Ultrasound was used to find a suitable pocket, and the site was marked. A time-out was performed. The site was then prepped and draped in usual sterile fashion, and a 16 gauge needle was inserted with return of cloudy yellow fluid. Ultrasound guidance was used due to a relatively small pocket of fluid during the procedure. A total of 60 mL of clear yellow fluid was obtained for diagnostic purposes. There was no bleeding and the patient tolerated the procedure well. There were no further complications.
[2021-11-22 20:36] LABS: Albumin Body Fluid < 1.0 g/dL
[2021-11-22 20:37] LABS: Body Fluid Tot Nucleated Cells 53 /uL
[2021-11-22 20:38] LABS: LDH Body Fluid 143 U/L
[2021-11-22 20:39] LABS: Glucose Body Fluid 150 mg/dL; Total Protein Body Fluid < 2.0 g/dL
[2021-11-22 20:40] LABS: Body Fluid Appearance CLEAR; Body Fluid Clotted? NO CLOTS PRESENT; Body Fluid Color YELLOW; Body Fluid Red Blood Cells < 1000 /uL
[2021-11-22 20:57] LABS: Eosinophils Body Fluid 0 %; Mononuclear WBC Body Fluid 89 %; Other Cells Body Fluid 0 %; Polynuclear WBC Body Fluid 11 %
[2021-11-22] MEDS: HYDROCODONE/ACET 5/325 TABLET 1 TAB PO (21:07)
[2021-11-22] MEDS: EZETIMIBE 10 MG TABLET PO (21:07)
[2021-11-23] VITALS (7 sets, daily range): BP systolic 109–146; BP diastolic 53–57; PULSE 84–98; RESP 16–18; TEMP 36.8–37.7; O2SAT 95–97
[2021-11-23 04:54] LABS: Basophils Absolute Auto 0 /uL (0-100); Eosinophils Absolute Auto 100 /uL (0-450); Eosinophils Percent Auto 2.8 % (2-4); Hematocrit 26.7 % (36-46); Lymphocytes Absolute Auto 900 /uL (1100-4500); Lymphocytes Percent Auto 29.6 % (25-40); Mean Corpuscular HGB Conc 33.7 % (30-36); Mean Corpuscular Hemoglobin 31.9 PG (26-34); Mean Corpuscular Volume 94.7 fL (80-100); Monocytes Absolute Auto 500 /uL (0-900); Monocytes Percent Auto 17.9 % (3-14); Neutrophils Absolute Auto 1400 /uL (1500-7000); Neutrophils Percent Auto 48.7 % (50-75); Platelet Count 106 X10^3/uL (150-400); Red Blood Cell Count 2.82 X10^6/uL (4.0-5.2); Red Cell Distribution Width 16.7 % (11.6-14.8); White Blood Cell Count 2.9 X10^3/uL (4.5-11.0)
[2021-11-23 04:56] LABS: Blood Urea Nitrogen 12 mg/dL (7-17); Calcium 7.5 mg/dL (8.4-10.2); Carbon Dioxide 21 mmol/L (22-32); Chloride 108 mmol/L (98-107); Estimated Glomerular Filt Rate > 60 mL/min (>60); Glucose 103 mg/dL (80-110); HEMOLYSIS < 15 (0-50); Potassium 3.6 mmol/L (3.4-5.1); Sodium 134 mmol/L (137-145)
[2021-11-23 04:58] LABS: Add Manual Diff / Slide Review SLIDE REVIEW
--- NOTE | 2021-11-23 05:12 | PC.NURSE ---
Addendum entered by Maricarmen Giordano R.N. 11/23/21 05:59: Spoke to Dr. Hernadez this am and let him know that I was unable to start and IV on her. Original Note: Tried to start an IV x2 using the vein finder. Unable to start Iv, pt states she is a hard IV start. will let MD know. Port not being use at the time due to cefazolin lock until 1600 today.
[2021-11-23 06:50] LABS: Anisocytosis 1+; Platelet Estimate Decreased on smear
[2021-11-23] MEDS: INSULIN GLARGINE 100 UNIT/ML 3ML PEN SUBCUT ×2 (09:25→20:49)
[2021-11-23] MEDS: AMLODIPINE 5 MG TABLET PO ×2 (09:34→20:52)
[2021-11-23] MEDS: METFORMIN HCL 500 MG TABLET PO ×2 (09:34→20:52)
[2021-11-23] MEDS: ASPIRIN EC 81 MG TABLET PO (09:34)
[2021-11-23] MEDS: ENOXAPARIN 40 MG/0.4 ML SYRINGE SUBCUT (09:34)
[2021-11-23] MEDS: cefTRIAXone 2,000 MG in SODIUM CHLORIDE 0.9% 100 ML 200 ML IV (09:35)
--- NOTE | 2021-11-23 10:41 | CM.DPC ---
Addendum entered by JULIA Loomis 11/23/21 13:15: ADD: medicare insurance specialist attempting to get ahold of Onc/Infusion center but RNs currently slammed with patients and will try to call back soon. SARAI also called [facility] and left msg with scheduling to confirm they received fax along with Provider Orders to confirm they have what they need if pt discharges in next 1-2 days and requested call back. [facility] had previously been faxed referral when pt was considering home infusion and they ran pt's insurance and would be around $500 a week since pt has straight Medicare and supplemental does not cover much and [facility] will call pt/family and update on this and he is aware preference is outpt infusion clinic but will keep referral in case something changes. BF Original Note: DCP Cont: Per MD, pt still with some fevers and worsening ascities but making slow progress. Possibly medically stable to d/c in 1-2 days. Pt to have 2 weeks Ceftriaxone Q24 and then lock therapy. medicare insurance specialist states he plans to call [facility] RN to discuss the lock therapy. SARAI received a call from [facility] intake [facility]Ele confirming they received the referral over the weekend and she forwarded the information to their glazier supervisor and requested MD complete the Provider Order form and emailed it to SARAI. SARAI provided to who completed and SARAI faxed back to fax [phone] along with facesheet, prog note from yesterday, MAR and Provider Order form to review. Elle also states pt is due for her Chemotherapy today but will be held as pt still admitted to the hospital. Plan: SARAI to follow closely with [facility] where pt is already established for chemo tx and their review of pt's ongoing outpt IV-Abx needed to confirm they can provide to pt at d/c. JULIA Loomis
[2021-11-23] MEDS: HEPARIN 10 UNIT/ML TOP (11:00)
[2021-11-23] MEDS: [UNRECOGNIZED DRUG - OTHER] TOP (11:00)
[2021-11-23] MEDS: CEFAZOLIN TOP (11:00)
--- NOTE | 2021-11-23 11:30 | PT.IPTN ---
Current Diagnoses Urinary tract infection, site not specified (11/18/21) Physical Therapy Treatment Note M2 PT-IP Current Condition Start: 11/20/21 13:44 Freq: NEEDED Status: Active Protocol: Document 11/23/21 11:12 SP (Rec: 11/23/21 14:10 SP [email or web address]) Physical Therapy Current Condition Current Condition Evaluation Date 11/20/21 Treatment Diagnosis UTI; breast CA; difficulty in walking Onset Date 11/18/21 M3 PT-IP Subjective Start: 11/20/21 13:44 Freq: NEEDED Status: Active Protocol: Document 11/23/21 11:12 SP (Rec: 11/23/21 14:10 SP [id number]) Subjective Physical Therapy Visit Type Type Treatment Note Visit Start Time 11:12 Visit Stop Time 11:30 Total Visit Minutes 18 Notes Pt's daughter, Oanh, was in the room, initiated caregiver training including donning gait belt, transfers/gait/ PF step mgt. Vitals taken during tx: supine : 125/52 HR 86 SaO2 100% on RA seated: 136/59 HR 93 Number of SHAREPOINT DEVELOPER Visits 1 Physical Therapy Visit Comments Patient Comments Pt is agreeable to do PT. Therapy Pain Assessment Pain Present Pain Present Denied Pain M4 PT-IP Mobility and Gait Start: 11/20/21 13:44 Freq: NEEDED Status: Active Protocol: Document 11/23/21 11:12 SP (Rec: 11/23/21 14:10 SP [id number]) PT-Bed Mobility Assessment Supine to Sit Supine to Sit Contact Guard Assistance,Head of Bed Elevated,Bedrails Scooting Scooting to Edge of Bed Contact Guard Assistance PT-Transfer Assessment Sit to and From Stand Sit to and from Stand Contact Guard Assistance, Minimal Assistance,1 Person Assistance,Use of Upper Extremities Equipment Transfer Assistive Device Gait Belt,Front Wheeled Walker Orthotic/Prosthetic Devices or Brace: No Transfers Transfer Destination Chair,Toilet Transfer Technique ambulated with FWW Transfer Ability Level of Assist Contact Guard Assistance, Minimal Assistance,1 Person Assistance,Use of Upper Extremities Comments Mobility Comments Completed elevated supine ( 30deg)>sit, scoot w/ use of bed rail and UE on bed. Daughter Oanh donned gait belt, Sit>Stand CG- Min A due to trunk sway retro little coming to standing but self recovery . Gait w/ FWW to bench, pivot turn, across room CGA- Min A due to trunk sways at times during pivot turn and around end of bed, into hallway, completed 1 PF step mgt on/ off forward CGA- Min A for trunk stability and FWW safety mgt on step, cues from SHAREPOINT DEVELOPER to daughter and pt for sequencing. Pt proceeded further gait in hallway and back to room bathroom/toilet ( 100 ft total), CGA pivot and back up fully with fWW, self brief mgt and min self support on grab bar slow descent to sit. Self pericare in sitting after voided. Sit>stand, self brief mgt BUE close SBA no LOB , cued for safety contact FWW for stability awareness. Gait to sink 8 ft w/ FWW CGA, cued for FWW facing sink for support if needed. Pt LOB retro self recovery contact sink while washing hands, CGA provided by daughter. Pt returned to room chair, cues for back up fully to chair and reach chair arms and slow descent to chair. Pt had call light and all needs in reach before left. Chair alarm donned and updated communication board. SHAREPOINT DEVELOPER discussed unsteady during gait and giving CG- Min A while using FWW and at this time recommending home 21/02 with use of FWW vs SNF for improving strength and balance toward functional independence. Daughter stated will call siblings and see if any are available to be with pt 21/02, unsure. They were able to acquire FWW for home use. Gait Assessment Gait Gait Assistance Required: Contact Guard Assist,Minimum Assistance Distance (Feet) 100 Able to Maintain Weight Bearing Status Yes During Gait Assistive Devices Assistive Device Gait Belt,Front Wheeled Walker Orthotic/Prosthetic Devices or Brace: No Gait Deviations General Gait Pattern Decreased Stride Length, Decreased Feet Clearance, Flexed Trunk,Lateral Trunk Lean Factors Limiting Gait Function Factors Limiting Gait Function Decreased Activity Tolerance, Decreased Strength,Difficulty Following Directions,Poor Balance,Poor Safety Awareness Comments Gait Comments Pt required cues for body closer to FWW x2 and keep with fully, trunk sway support during turns and standing at sink retro LOB, CGA. Stair Climbing Assessment Evaluation Level of Assist On Stairs Contact Guard Assistance, Minimal Assistance,1 Person Assistance Devices Stair Climbing Assistive Devices Front Wheel Walker Technique/Endurance Stair Climbing Direction Ascend and Descend Stair Climbing Technique Step to Step Number of Steps Climbed 1 Stair Climbing Set # Repetitions (reps) 1 Comments Stair Climbing Comments see mobility details PT-Balance Assessment Sitting Balance and Reactions Static Sitting Balance Ability Good Dynamic Sitting Balance Ability Fair Standing Balance and Reactions Static Standing Balance Ability Fair Dynamic Standing Balance Ability Fair Device Used FWW M5 PT-IP Objective Assessments Start: 11/20/21 13:44 Freq: NEEDED Status: Active Protocol: Document 11/20/21 11:55 AB (Rec: 11/20/21 13:53 AB [id number]) Orientation Orientation/Cognition Level of Alertness Alert Orientation Name,Place,Situation Safety Awareness Decreased Safety Awareness Memory Description Short Term Impaired Gross Range of Motion Lower Extremity ROM Assessment Within Functional Limits Strength Lower Extremity Strength Assessment Bilaterally Impaired Hip 3+/5 Knee 3+/5 Sensation Assessment Sensation Gross Sensation WNL Muscle Tone Muscle Tone WNL Yes M6 PT-IP Treatment Start: 11/20/21 13:44 Freq: NEEDED Status: Active Protocol: Document 11/23/21 11:12 SP (Rec: 11/23/21 14:10 SP [id number]) Physical Therapy Treatment Education Education Provided Safety M7 PT-IP Assessment and Plan Start: 11/20/21 13:44 Freq: NEEDED Status: Active Protocol: Document 11/23/21 11:12 SP (Rec: 11/23/21 14:10 SP [id number]) PT Summary Assessment and Plan Potential Rehabilitation Potential Good Status of Condition at Evaluation Evolving Summary Impairments Pain,ROM,Strength,Balance, Coordination,Sensation,Tone, Cognition,Bed Mobility, Transfers,Gait,Activity Tolerance Progress Towards Goals Progressing Toward Goals,Slow Progress due to Medical Issues ,Slow Progress due to Activity Tolerance Assessment Summary Pt improved bed mob CGA, transfers, gait and stairs CG- Min A w/ FWW. Retro and lateral leans initially coming to standing and pivot turns, LOB x1 CGA and self sink support recover. Pt is not back to baseline and recommending 24/7 w/ FWW vs SNF to improve strength and functional mobility. Will continue to assess progress. Goals Bed Mobility Goal Independent Transfer Goal Independent,Front Wheeled Walker Gait Goal Independent,Front Wheel Walker Gait Distance 150 Other Goals improve ambulation without AD 200 ft SBA up/down 1 step SBA Days to Meet Goals 10 Frequency of Treatment Frequency Of Treatment Once a Day Treatment Plan Physical Therapy Treatment Plan Bed Mobility Training,Transfer Training,Gait Training, Therapeutic Exercise,Balance Retraining,Discharge Planning, Hot or Cold Pack,Neuromuscular Re-ed,Coordination Retraining Other Recommendations and Next Treatment bed mob, transfers, gait w/FWW Focus . Standing balance activities. Recommendations To Nursing Amount of Assist Needed 1 Person Assist Discharge Recommendations PT Discharge Recommendations Home with 24/ Assist Available,Home Health,SNF Rehab,Home vs SNF Equipment Needed for Home Before Daughter acquired a FWW. Discharge Transportation Needs at Discharge Private Vehicle,Wheelchair/ Cabulance
--- NOTE | 2021-11-23 11:31 | PC.NURSE ---
I was only able to aspirate 1ml from patient's port, notified pharmacist that I am unable to draw back and they said it was ok to flush with NS. After I flushed with NS I was able to draw back. I then infused her IV antibiotics, flushed with NS then ALT.
[2021-11-23] MEDS: FUROSEMIDE 40 MG TABLET PO ×2 (12:00→17:35)
[2021-11-23] MEDS: SPIRONOLACTONE 25 MG TABLET PO (12:00)
[2021-11-23] MEDS: INSULIN LISPRO 100 UNIT/ML 3ML VIAL SUBCUT ×2 (12:33→17:35)
--- NOTE | 2021-11-23 14:12 | P.PN_ITS ---
Subjective Subjective Date Patient Seen: 11/23/21 Interval history: 80 F admitted with strep bacteremia. Continues to have some fevers but today finally feels well again. Her abdomen is a bit more swollen but she denies any shortness for breath, nausea, or vomiting. Diagnostic paracentesis yesterday did not show evidence of bacterial peritonitis, though a culture was sent and is still pending but no organisms are seen. Exam Vital Signs (past 8 hours): - 11/23/21 08:00 11/23/21 08:49 11/23/21 12:00 Temperature 98.3 F 98.4 F Pulse Rate 84 89 Respiratory Rate 18 18 Blood Pressure 127/53 L 109/53 L Pulse Oximetry 96 95 97 Oxygen Delivery Method Room Air Oxygen Flow Rate 0 Narrative Exam Narrative: General:? Patient is well developed and well nourished, in no distress at this time, though mildly ill appearing. HEENT:? Normocephalic, atraumatic, extraocular muscles intact, oral pharynx is clear and mucous membranes are moist. Neck: supple and symmetric, trachea is midline, no cervical adenopathy. Negative for JVD Chest:? Normal AP diameter and contour without kyphoscoliosis, no tachypnea, equal chest rise bilaterally. Chest port without induration or erythema. Lungs:? CTA b/l no wheezing rhonchi or rales. Cardio:?RRR no m/r/g. Abdomen: soft, RLQ tenderness, mild, slight distension. Musculoskeletal:? Muscle strength and tone are equal within normal limits, no deformity. Extremities: No edema or joint effusions. No cyanosis or clubbing. Skin:? Pale,? Warm to touch,dry and intact without rashes, ulcerations or petechiae.? Neuro:? Alert and orientated x3,? sensation to touch intact in all extremities, no gross deficits noted of cranial nerves. Psych:? Patient has a well-kept appearance, appropriate affect, mental status attitude thought context and judgment are appropriate for age. Objective Labs Result Diagrams: 11/23/21 04:35 11/23/21 04:35 Labs: Laboratory Results - last 24 hr 11/22/21 11/22/21 11/22/21 15:23 19:30 19:30 WBC RBC Hgb Hct MCV MCH MCHC RDW Plt Count Neut % (Auto) Lymph % (Auto) Rabun % (Auto) Eos % (Auto) Baso % (Auto) Neut # (Auto) Lymph # (Auto) Rabun # (Auto) Eos # (Auto) Baso # (Auto) Platelet Estimate RBC Morphology Anisocytosis Sodium Potassium Chloride Carbon Dioxide BUN Creatinine Estimated GFR BUN/Creatinine Ratio Glucose Calcium Fluid Color Fluid Appearance Fluid RBC Fld Tot Nucleated Cell Fluid Polynuclear WBCs Fluid Mononuclear WBCs Fluid Eosinophils Fluid Other Cells Body Fluid Clot Fluid Glucose 150 Fluid Total Protein Fluid Albumin Fluid LDH 143 C. difficile Tox (PCR) Negative for c. diff 11/22/21 11/22/21 11/22/21 19:30 19:30 19:30 WBC RBC Hgb Hct MCV MCH MCHC RDW Plt Count Neut % (Auto) Lymph % (Auto) Rabun % (Auto) Eos % (Auto) Baso % (Auto) Neut # (Auto) Lymph # (Auto) Rabun # (Auto) Eos # (Auto) Baso # (Auto) Platelet Estimate RBC Morphology Anisocytosis Sodium Potassium Chloride Carbon Dioxide BUN Creatinine Estimated GFR BUN/Creatinine Ratio Glucose Calcium Fluid Color Yellow Fluid Appearance Clear Fluid RBC < 1000 Fld Tot Nucleated Cell 53 Fluid Polynuclear WBCs 11 Fluid Mononuclear WBCs 89 Fluid Eosinophils 0 Fluid Other Cells 0 Body Fluid Clot No clots present Fluid Glucose Fluid Total Protein < 2.0 Fluid Albumin < 1.0 Fluid LDH C. difficile Tox (PCR) 11/23/21 11/23/21 04:35 04:35 WBC 2.9 L RBC 2.82 L Hgb 9.0 L Hct 26.7 L MCV 94.7 MCH 31.9 MCHC 33.7 RDW 16.7 H Plt Count 106 L Neut % (Auto) 48.7 L Lymph % (Auto) 29.6 Rabun % (Auto) 17.9 H Eos % (Auto) 2.8 Baso % (Auto) 1.0 Neut # (Auto) 1400 L Lymph # (Auto) 900 L Rabun # (Auto) 500 Eos # (Auto) 100 Baso # (Auto) 0 Platelet Estimate Decreased on smear RBC Morphology See below Anisocytosis 1+ H Sodium 134 L Potassium 3.6 Chloride 108 H Carbon Dioxide 21 L BUN 12 Creatinine 0.60 Estimated GFR > 60 BUN/Creatinine Ratio 20.0 Glucose 103 Calcium 7.5 L Fluid Color Fluid Appearance Fluid RBC Fld Tot Nucleated Cell Fluid Polynuclear WBCs Fluid Mononuclear WBCs Fluid Eosinophils Fluid Other Cells Body Fluid Clot Fluid Glucose Fluid Total Protein Fluid Albumin Fluid LDH C. 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 Right hip pain Splenomegaly Strain of tendon of left rotator cuff Surgical History H/O right wrist surgery History of carpal tunnel release (Unknown) History of partial mastectomy of left breast (07/29/21) History of surgery Hx of appendectomy (Unknown) Hx of cataract surgery (Unknown) Hx of cholecystectomy Hx of eye surgery Status post cholecystectomy Family History Father Cancer Mother Cancer Social History household members: family Smoking Status: Never smoker alcohol intake: never substance use type: does not use Assessment & Plan Assessment & Plan narrative: Patricia Giordano is admitted for further evaluation and management of a strep bacteremia. 1. Strep alactolysis bacteremia, acute and present on admission Blood culture for positive on admission with a group D strep. ?continue IV ceftriaxone 2g q 24 hours for two weeks from last positive culture. Monitor fevers and blood cultures. Repeated blood cultures continue to be negative. -concern for possible port infection, however without persistent bacteremia this seems less likely. Discussed with ID who recommended 2 weeks of IV ceftriaxone at this time along with cefazolin lock therapy which has been initiated with pharmacy help. (End date 12/02/21) -unclear if acute cystitis led to bacteremia, though group D strep not typical for UTI -diagnostic paracentesis did not show evidence of peritonitis -CT scan did not show evidence of diverticulitis, but increased ascites. 2. Acute cystitis ?- will be more than adequately treated with above ceftriaxone. Unclear if contributed to bacteremia. 3. Diabetes type 2, suboptimally controlled A1c is 6.2 She will receive Glargine 5 units at breakfast and bedtime, low dose correctional scale ACHS. Glucose 103 this AM. Carb controlled diet 4. Hypertension/CAD continue amlodipine, added lasix and aldactone today given ascites. 5. Pancytopenia ?- likely related to chemotherapy treatment for known breast CA, though given cirrhosis on CT that is also likely contributory. Less likely sepsis at this time. ?- continue to monitor,. 6. Hepatic cirrhosis with ascites. ?- diagnostic paracentesis showed 53 total nucleated cells, total protein <2 and albumin <1 consistent with cirrhosis as source. - given worsening distension will start oral diuresis with lasix and aldactone, no current indications for LVP. If symptoms develop will consider fluid removal. Dispo: likely d/c to home, timing likely 1-2 days depending on symptoms and bact erial clearance from bloodstream and /or need for further interventions. Code status: Full code as discussed with the patient who identifies granddaughter Oanh Mock as her surrogate and POA. [X] I have utilized all available immediate resources to obtain, update, or review of the patient's current medications Time Spent With Patient Critical Care time: I spent a total of [] minutes of critical care time on this patient's care today; this time is exclusive of procedural time. Quality VTE Deep Vein Thrombosis/Pulmonary Embolism Present on Admission: No
--- NOTE | 2021-11-23 15:53 | PC.NURSE ---
Addendum entered by Telma Healy R.N. 11/23/21 16:00: pt has been afebrile all day. Original Note: pt denied pain. no n/v. pt watching tv. voiding without difficulty.
[2021-11-23] MEDS: EZETIMIBE 10 MG TABLET PO (20:52)
[2021-11-23] MEDS: ONDANSETRON 4 MG ODT SL (22:38)
[2021-11-23] MEDS: HYDROCODONE/ACET 5/325 TABLET 1 TAB PO (23:19)
[2021-11-24 02:07] VITALS: BP 118/54; PULSE 92; RESP 17; TEMP 36.9; O2SAT 96
[2021-11-24 08:00] VITALS: BP 112/47; PULSE 75; RESP 18; TEMP 36.8; O2SAT 95
--- NOTE | 2021-11-24 08:30 | P.DS_ITS ---
History of Present Illness History of Present Illness Date Patient Seen: 11/24/21 Chief complaint: bladder infection, fever not going down Narrative: Per HIRAM Clemente: Patricia Giordano is a 80 y.o female currently under treatment for breast cancer, diabetes type 2, hypertension, hyperlipidemia, recurrent UTIs was seen in the ED 11/18, diagnosed with a UTI, given IV zosyn. After workup and evaluation, was not discharged on oral abx. Advised to follow up with PCP.? She returns today with continued flank pain and fever of 101.2.? She denies headache, nasal congestion, sore throat, shortness of breath, chest pain, she does endorse having low back pain, denies nausea vomiting, abdominal pain, diarrhea or constipation. CT of the abdomen and pelvis noted the ?Bladder wall is mildly thickened, which may be secondary to underdistention or possibly cystitis. Patient's temperature is 101.2?, blood pressure 126/58, heart rate 97, respiratory rate 21, oxygen s aturation 96% on room air she weighs 83.9 kg with a BMI of 29.9.? WBC is low at 4.2 RBC 3.26 hemoglobin 10.3 hematocrit 30.9, platelet count 77, sodium 136, BUN is 20 with a normal creatinine and a GFR greater than 60, glucose 159, A1c is 6.4, calcium 8.1, magnesium is 2.0, AST is 41 and ALT is normal, lipase 64, procalcitonin 0.24, UA is not eligible for culture however there was bacteria remaining, COVID-19 PCR is negative. Discharge Providers Provider Date of admission: 11/18/21 22:15 Discharge Date: 11/24/21 Primary care physician: Darion Clifford DO Consults: 11/20/21 10:50 Consult to Physical Therapy Evaluate & Treat Comment: Eval for FWW Physician Instructions: Evaluate and Treat 11/20/21 14:21 Consult to Dietitian, Adult Routine Comment: Reason For Exam: nutrition: less than body requirments 11/24/21 11:00 Consult to Home Health Routine Comment: DX: shortness of breath Reason For Exam: FWW for home use Discharge provider: Anders Herrera DO Summary Hospital Course Discharge Diagnosis: Please see hospital course by problem list noted below: Hospital Course: This is a 80 year old female with breast cancer on chemotherapy whom was admitted for fever and flank pain. Ultimately found to have group D strep bacteremia. She improved with antibiotic therapy and was discharged home. 1. Strep alactolysis bacteremia, acute and present on admission - Blood culture positive on admission with a group D strep -?patient was started initially on IV ceftriaxone for presumed acute cystitis initially. Increased to 2g q 24 hours for two weeks from last positive culture per ID recommendations. -concern for possible port infection, however without persistent bacteremia this seems less likely. Discussed with ID who recommended 2 weeks of IV ceftriaxone at this time along with cefazolin lock therapy which has been initiated with pharmacy help. (End date 12/02/21) She was scheduled for follow up 12/02/21 @ 10:30 and needs ID referral from PCP as there is no method for referral from hospitalist. -unclear if acute cystitis led to bacteremia, though group D strep not typical for UTI -diagnostic paracentesis did not show evidence of peritonitis. -CT scan performed for RLW abdominal pain, bloating, and continued fever did not show evidence of diverticulitis, but increased ascites. -C.difficile testing was negative. 2. Acute cystitis ?- will be more than adequately treated with above ceftriaxone. Unclear if contributed to bacteremia. 3. Diabetes type 2, controlled no changes recommended at the time of discharge. Patient was given low dose lantus and sliding scale during admission. 4. Hypertension/CAD continue amlodipine, added lasix and aldactone during given worsening ascites. Losartan HCTZ was discontinued to allow for diuresis. 5. Pancytopenia, stable ?- likely related to chemotherapy treatment for known breast CA, though given cirrhosis on CT that is also likely contributory. Less likely sepsis at this time. 6. Hepatic cirrhosis with ascites. ?- diagnostic paracentesis was performed given abdominal pain and continued fever. This showed 53 total nucleated cells, total protein <2 and albumin <1 consistent with cirrhosis as source. This was not consistent with peritonitis, but patient had been on ceftriaxone for a few days prior to paracentesis. ?- given worsening distension will start oral diuresis with lasix and aldactone, no current indications for LVP. If symptoms develop will consider fluid removal. -cytology was sent given malignancy history. Results pending at the time of discharge. Time Spent with Patient Time spent: Greater than 30 minutes Exam Vital Signs (past 8 hours): Oxygen Delivery Method Room Air Oxygen Flow Rate 0 Narrative Exam Narrative: General:? Patient is well developed and well nourished, in no distress at this time, though mildly ill appearing. HEENT:? Normocephalic, atraumatic, extraocular muscles intact, oral pharynx is clear and mucous membranes are moist. Neck: supple and symmetric, trachea is midline, no cervical adenopathy. Negative for JVD Chest:? Normal AP diameter and contour without kyphoscoliosis, no tachypnea, equal chest rise bilaterally. Chest port without induration or erythema. Lungs:? CTA b/l no wheezing rhonchi or rales. Cardio:?RRR no m/r/g. Abdomen: soft, RLQ tenderness, mild, slight distension. Musculoskeletal:? Muscle strength and tone are equal within normal limits, no deformity. Extremities: No edema or joint effusions. No cyanosis or clubbing. Skin:? Pale,? Warm to touch,dry and intact without rashes, ulcerations or petechiae.? Neuro:? Alert and orientated x3,? sensation to touch intact in all extremities, no gross deficits noted of cranial nerves. Psych:? Patient has a well-kept appearance, appropriate affect, mental status attitude thought context and judgment are appropriate for age. 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 Right hip pain Splenomegaly Strain of tendon of left rotator cuff Surgical History H/O right wrist surgery History of carpal tunnel release (Unknown) History of partial mastectomy of left breast (07/29/21) History of surgery Hx of appendectomy (Unknown) Hx of cataract surgery (Unknown) Hx of cholecystectomy Hx of eye surgery Status post cholecystectomy Family History Father Cancer Mother Cancer Social History household members: family Smoking Status: Never smoker alcohol intake: never substance use type: does not use Discharge Plan Discharge Plan Patient Disposition: Home Provider Discharge Comment: You were admitted to the hospital, found to have a blood stream infection. You need two full weeks of IV antibiotics which will complete daily at the infusion clinic. ID follow up recommended at [facility]. You were started on medications to remove fluid in your belly. Discharge orders & Medications Prescriptions: New furosemide 40 mg Tablet 40 mg PO 0800,1700 30 Days Qty: 60 0RF spironolactone 25 mg Tablet 25 mg PO DAILY 30 Days Qty: 30 0RF ceftriaxone 2 gram recon soln 2 g IV DAILY 9 Days Qty: 9 0RF Continued phenazopyridine [Pyridium] 200 mg tablet 200 mg PO TID 0 Days Qty: 6 0RF multivitamin Tablet 1 tab PO DAILY Qty: 0 0RF aspirin [Aspirin Low Dose] 81 mg Tablet,Delayed Release (Dr/Ec) 81 mg PO DAILY Qty: 0 0RF alendronate 35 mg tablet 35 mg PO QWEEK Qty: 12 3RF ezetimibe 10 mg tablet See Rx Instructions .ROUTE .COMPLEX Qty: 90 3RF Dose Instruction: TAKE ONE TABLET BY MOUTH ONE TIME DAILY Rx Instructions: TAKE ONE TABLET BY MOUTH ONE TIME DAILY amlodipine 5 mg tablet 5 mg PO BID Qty: 180 3RF metformin 500 mg tablet 500 mg PO BID Qty: 60 2RF Rx Instructions: Start with 1 pill at dinner the 1st week then advanced to twice daily (DME) blood-glucose meter Misc See Rx Instructions .Route Qty: 1 0RF Rx Instructions: Check blood glucose BID (DME) Blood Glucose Test Strip See Rx Instructions .Route Qty: 50 6RF Rx Instructions: As directed (DME) lancets Misc See Rx Instructions .Route Qty: 200 0RF Rx Instructions: As directed acetaminophen [Tylenol Extra Strength] 500 mg tablet 500 mg PO Q6H PRN (Reason: Pain (Scale Score 1-3)) 0RF ondansetron 4 mg Tablet,Disintegrating 4 mg PO Q6H PRN (Reason: Nausea & Vomiting) Qty: 30 0RF prochlorperazine maleate [Compazine] 10 mg Tablet 10 mg PO Q6H PRN (Reason: Nausea And Vomiting) Qty: 30 0RF nystatin 100,000 unit/gram Powder 1 applic TOPICAL BID Qty: 60 0RF Rx Instructions: Apply to affected area twice daily. Topical use only. lidocaine-prilocaine 2.5-2.5 % Cream 1 applic topical PRN PRN (Reason: Pain) Qty: 30 0RF Rx Instructions: Apply to the skin over the port at least 2 hrs before planned use of the port. Cover the cream with a small piece of plastic wrap and leave in place until the port is accessed. phenazopyridine [Pyridium] 100 mg tablet 100 mg PO TID PRN (Reason: pain) Qty: 9 0RF Discontinued losartan-hydrochlorothiazide 50-12.5 mg tablet See Rx Instructions .ROUTE .COMPLEX Qty: 90 0RF Dose Instruction: TAKE ONE TABLET BY MOUTH ONE TIME DAILY Rx Instructions: TAKE ONE TABLET BY MOUTH ONE TIME DAILY Follow up/Referrals: Darion Clifford DO [Primary Care Provider] - Diet/Activity/Treatments Diet: Diet as Tolerated Activity: As tolerated Visit Report/Discharge Packet Instructions: Urinary Tract Infection Discharge Data Primary Care Provider: Darion Clifford Quality VTE Deep Vein Thrombosis/Pulmonary Embolism Present on Admission: No
[2021-11-24] MEDS: ENOXAPARIN 40 MG/0.4 ML SYRINGE SUBCUT (08:38)
[2021-11-24] MEDS: cefTRIAXone 2,000 MG in SODIUM CHLORIDE 0.9% 100 ML 200 ML IV (08:39)
[2021-11-24] MEDS: AMLODIPINE 5 MG TABLET PO (08:40)
[2021-11-24] MEDS: FUROSEMIDE 40 MG TABLET PO (08:40)
[2021-11-24] MEDS: METFORMIN HCL 500 MG TABLET PO (08:40)
[2021-11-24] MEDS: SPIRONOLACTONE 25 MG TABLET PO (08:40)
[2021-11-24] MEDS: ASPIRIN EC 81 MG TABLET PO (08:40)
[2021-11-24] MEDS: INSULIN GLARGINE 100 UNIT/ML 3ML PEN SUBCUT (08:43)
[2021-11-24 09:46] VITALS: O2SAT 96
--- NOTE | 2021-11-24 10:52 | PC.NURSE ---
Pt is AxOx3-4, calm and cooperative. VSS, denied pain. Pt ate well and BG-97 before breakfast. Pt is ready to d/c to home with her dtr. d/c instructions given including UTI as well as general information regarding infection, s/s. Pt verbalized understanding.
[2021-11-24 11:00] VITALS: BP 119/53; PULSE 85; RESP 19; TEMP 37.2; O2SAT 100
--- NOTE | 2021-11-24 11:22 | PT.IPTN ---
Current Diagnoses Urinary tract infection, site not specified (11/18/21) Physical Therapy Treatment Note M2 PT-IP Current Condition Start: 11/20/21 13:44 Freq: NEEDED Status: Discharge Protocol: Document 11/23/21 11:12 SP (Rec: 11/23/21 14:10 SP [email or web address]) Physical Therapy Current Condition Current Condition Evaluation Date 11/20/21 Treatment Diagnosis UTI; breast CA; difficulty in walking Onset Date 11/18/21 M3 PT-IP Subjective Start: 11/20/21 13:44 Freq: NEEDED Status: Discharge Protocol: Document 11/24/21 11:22 AB (Rec: 11/24/21 13:03 AB [email or web address]) Subjective Physical Therapy Visit Type Type Treatment Note Visit Start Time 11:22 Visit Stop Time 11:46 Total Visit Minutes 24 Number of PREMIX OPERATOR CONCENTRATE Visits 0 Physical Therapy Visit Comments Patient Comments agreeable to do PT M4 PT-IP Mobility and Gait Start: 11/20/21 13:44 Freq: NEEDED Status: Discharge Protocol: Document 11/24/21 11:22 AB (Rec: 11/24/21 13:03 AB [id number]) PT-Bed Mobility Assessment Supine to Sit Supine to Sit Standby Assistance Sit to Supine Sit to Supine Standby Assistance PT-Transfer Assessment Sit to and From Stand Sit to and from Stand Standby Assistance,1 Person Assistance,Use of Upper Extremities Equipment Transfer Assistive Device Gait Belt,Front Wheeled Walker Orthotic/Prosthetic Devices or Brace: No Transfers Transfer Destination Bed Transfer Technique Stand Step Pivot Transfer Ability Level of Assist Standby Assistance,1 Person Assistance,Use of Upper Extremities Comments Mobility Comments pt sitting on chair and daughter in room. daughter confirmed that she and her sibling will try what they can to provide assist to pt but may not be able to do 21/02. pt agreed to do PT but stated that she is comfortable with stair climbing and does not want to do it again today. daughter in room received caregiver training yesterday and is also comfortable on assisting pt. daughter was able to put safety belt on pt and assisted pt with sit to stand transfer to bed using FWW SBA. pt completed bed mobility sit<> supine SBA. pt ambulated in room using FWW SBA to CGA ~ 35 ft. pt sat back on the chair . call light within reach. pt's daughter was able to obtain a FWW from [employer]. educated on how to adjust FWW and understood. educated pt and daughter regarding pt's level of assistance and progress. Gait Assessment Gait Gait Assistance Required: Standby Assistance,Contact Guard Assist Distance (Feet) 35 Able to Maintain Weight Bearing Status Yes During Gait Assistive Devices Assistive Device Gait Belt,Front Wheeled Walker Orthotic/Prosthetic Devices or Brace: No Gait Deviations General Gait Pattern Decreased Stride Length, Decreased Feet Clearance Factors Limiting Gait Function Factors Limiting Gait Function Decreased Activity Tolerance, Decreased Strength,Poor Balance,Poor Safety Awareness M5 PT-IP Objective Assessments Start: 11/20/21 13:44 Freq: NEEDED Status: Discharge Protocol: Document 11/20/21 11:55 AB (Rec: 11/20/21 13:53 AB [id number]) Orientation Orientation/Cognition Level of Alertness Alert Orientation Name,Place,Situation Safety Awareness Decreased Safety Awareness Memory Description Short Term Impaired Gross Range of Motion Lower Extremity ROM Assessment Within Functional Limits Strength Lower Extremity Strength Assessment Bilaterally Impaired Hip 3+/5 Knee 3+/5 Sensation Assessment Sensation Gross Sensation WNL Muscle Tone Muscle Tone WNL Yes M6 PT-IP Treatment Start: 11/20/21 13:44 Freq: NEEDED Status: Discharge Protocol: Document 11/24/21 11:22 AB (Rec: 11/24/21 13:03 AB [email or web address]) Physical Therapy Treatment Education Education Provided Safety M7 PT-IP Assessment and Plan Start: 11/20/21 13:44 Freq: NEEDED Status: Discharge Protocol: Document 11/24/21 11:22 AB (Rec: 11/24/21 13:03 AB [email or web address]) PT Summary Assessment and Plan Potential Rehabilitation Potential Good Summary Impairments Pain,ROM,Strength,Balance, Coordination,Sensation,Tone, Cognition,Bed Mobility, Transfers,Gait,Activity Tolerance Progress Towards Goals Slow Progress due to Activity Tolerance Assessment Summary pt plans to go home today and daughter is able to assist pt at home. daughter stated that she her her sibling will do what they can to provide pt assistance but may not provide 24/7 assist. pt stated that she has outpt infusions daily and family will assist. Goals Bed Mobility Goal Independent Transfer Goal Independent,Front Wheeled Walker Gait Goal Independent,Front Wheel Walker Gait Distance 150 Other Goals improve ambulation without AD 200 ft SBA up/down 1 step SBA Days to Meet Goals 10 Frequency of Treatment Frequency Of Treatment Once a Day Treatment Plan Physical Therapy Treatment Plan Bed Mobility Training,Transfer Training,Gait Training, Therapeutic Exercise,Balance Retraining,Discharge Planning, Hot or Cold Pack,Neuromuscular Re-ed,Coordination Retraining Recommendations To Nursing Amount of Assist Needed 1 Person Assist Discharge Recommendations PT Discharge Recommendations Home with Assistance,Home Health Transportation Needs at Discharge Private Vehicle
--- NOTE | 2021-11-24 11:26 | CM.DPNOTE ---
rag production worker informed patient is ready for discharge today. rag production worker contacted [facility] and left voicemail informing of discharge and requesting call back if they needed any further documentation for pt's already scheduled infusions. rag production worker contacted Dr. Clifford's office and spoke to Keira; requested a referral sent to [facility] per hospitalist request (ID won't take referral from hospitalist). Informed Keira the appt is already scheduled, just referral is required. rag production worker spoke with patient and patient's daughter. Daughter was under the impression that HH would be referred to do blood sugar tests 2-3 weekly. rag production worker explained that HH would not be covered by insurance as patient is not homebound and was already going to be attending op appts for infusions. rag production worker shared HH could be arranged through PCP if patient was unable to continue attending these op appts at any time in the future. Daughter also inquired as to why patient is not discharging to rehab facility if the PT person said she needed that. Patient informed social work supervisor and daughter I'm not going to one of those places. rag production worker did confirm with patient that she resides with her son and has another daughter that resides within only a couple minutes of pt's residence. Daughter requested to speak with hospitalist about care plans for pt post discharge; hospitalist informed of request. Daughter requested FWW for patient as patient is not sure when the one they planned to obtain would be available to her at home. Order placed and PT will provide walker for patient prior to discharge. No other discharge planning needs identified at this time. Patient is being transported home by daughter via POV. Scooby HACKETT
== END 2021-11-24 11:40 | disposition home or self-care (01) | DRG 871 ==
LOC: ED 22:03 → AC 22:16
PROVIDERS: Internal Medicine; Admitting Provider Nurse Practitioner Family; Emergency Provider Emergency Medicine; PCP Family Medicine; Referring Provider Emergency Medicine; Visit Provider Nurse Practitioner Family
DX: R78.81 Bacteremia (principal); D61.810 Antineoplastic chemotherapy induced pancytopenia; N30.00 Acute cystitis without hematuria; R18.8 Other ascites; N30.01 Acute cystitis with hematuria; B95.2 Enterococcus as the cause of diseases classified elsewhere; B95.5 Unspecified streptococcus as the cause of diseases classified elsewhere; K75.81 Nonalcoholic steatohepatitis (NASH); E11.65 Type 2 diabetes mellitus with hyperglycemia; I10 Essential (primary) hypertension; I25.10 Atherosclerotic heart disease of native coronary artery without angina pectoris; C50.412 Malignant neoplasm of upper-outer quadrant of left female breast; E78.5 Hyperlipidemia, unspecified; Z79.84 Long term (current) use of oral hypoglycemic drugs; Z20.822 Contact with and (suspected) exposure to COVID-19
CPT/HCPCS: 36415; 36591; 71045; 74176; 74177; 80048; 80053; 80202; 81001; 81003; 82042; 82550; 82945; 82962; 83036; 83605; 83615; 83690; 83735; 83880; 84145; 84157; 84484; 85007; 85025; 85651; 86140; 87040; 87070; 87075; 87077; 87086; 87150; 87186; 87205; 87493; 87633; 87635; 89051; 93005; 93306; 94760; 94762; 96365; 96366; 96367; 96375; 96413; 96415; 96417; 96523; 97116; 97162; 97530; 99214; 99284; C9803; J0610; J0692; J0696; J1100; J1642; J1650; J1815; J2405; J2543; J7060; J9267; J9271; Q9967

== ENCOUNTER → 2021-12-29 10:54 | Outpatient (CLI) | payer MEDICARE, SELFPAY ==
[2021-11-19 14:58] VITALS: BMI 29.8
== END ==
PROVIDERS: PCP Family Medicine; Referring Provider Radiology Radiation Oncology; Visit Provider Radiology Radiation Oncology
DX: C50.412 Malignant neoplasm of upper-outer quadrant of left female breast (principal); Z17.1 Estrogen receptor negative status [ER-]

== ENCOUNTER → 2021-12-31 13:44 | Outpatient (CLI) | payer MEDICARE, SELFPAY ==
[2021-11-19 14:58] VITALS: BMI 29.8
--- NOTE | 2021-12-31 | DI.CT.S_ITS ---
PROCEDURE: CT SOFT TISSUE NECK W CON INDICATIONS: TRIPLE NEGATIVE MALIGNANT BREAST CANCER TECHNIQUE: After the administration of intravenous contrast, 3.0 mm axial sections acquired from the sella to the aortic arch. Additional oblique axial 3.0 mm sections acquired through the pharynx. 3 mm thick coronal and sagittal reformats were generated. For radiation dose reduction, the following was used: automated exposure control. COMPARISON: [facility], CT, CT CHEST W CON, 12/31/2021, 13:49. FINDINGS: Image quality: Excellent. Lymph nodes: No enlarged lymph nodes seen throughout the neck. Vessels: Visualized vasculature appears patent. Incidental note is made of a common origin of the right brachiocephalic artery and the left common carotid artery (bovine type arch). This is considered to be a developmental variant of no clinical consequence. Neck spaces: The oropharynx, nasopharynx, and pharynx demonstrate no mucosal lesions. The vocal cords, false vocal cords, pyriform sinuses, epiglottis, vallecula, and tongue base all appear normal. Extramucosal spaces appear unremarkable. Glands: The parotid and submandibular glands appear normal. Thyroid gland demonstrates no significant abnormality. Miscellaneous: Visualized brain and orbits appear normal. Lung apices appear clear. Superficial soft tissues appear normal. A right-sided chest port is partially seen. A torus tubarius can be seen. Bones: No suspicious bony lesions. Visualized sinuses and mastoids appear unremarkable. Moderate lower cervical spine degenerative change can be seen. IMPRESSION: No enlarged lymph nodes are seen. No masses are seen. Incidental note is made of: Torus tubarius Moderate lower cervical spine degenerative change Right-sided chest port Bovine type aortic branching pattern. Dictated by: Remington Ag M.D. on 12/31/2021 at 16:48 Approved by: Remington Ag M.D. on 12/31/2021 at 16:50
--- NOTE | 2021-12-31 | DI.CT.S_ITS ---
PROCEDURE: CT CHEST W CON INDICATIONS: TRIPLE NEGATIVE MALIGNANT BREAST CANCER TECHNIQUE: After the administration of intravenous contrast, 5 mm thick sections acquired from the pulmonary apices to the posterior costophrenic angles. 1 mm axial lung, 5 mm thick coronal and sagittal reformats and 7 mm axial MIP were acquired. For radiation dose reduction, the following was used: automated exposure control, adjustment of mA and/or kV according to patient size. COMPARISON: [facility], CT, CT CHEST WO [facility], 10/05/2021, 10:24. FINDINGS: Image quality: Excellent. Lungs and pleura: No acute air space opacities. No pleural effusions or pneumothorax. Central and peripheral airways are patent and normal in caliber. 3 mm left lower lobe nodule series 3, image 168 previously measuring 4 mm. Previous area of nodularity along the right perihilar region on series 3, image 156 is stable measuring 1.0 cm. Re-measurement of prior exam demonstrates similar measurement. No new nodules are identified. Mediastinum: Heart size is enlarged. No pericardial effusion. No mediastinal or hilar adenopathy by size criteria. Thoracic aorta and central pulmonary arteries are normal in size. Esophagus is normal in caliber. No hiatal hernia. Bones and chest wall: No suspicious bony lesions. No vertebral body compression fractures. Left upper outer quadrant fluid collection remains present measuring 2.3 by 3.1 cm compared to 3.0 x 4.5 cm. Previous enlarged left axillary lymph node is no longer visualized. Surgical clip is noted suggestive of excision. Mild persistent skin thickening is noted overlying the right breast although slightly less prominent suggestive postsurgical radiation change. Right Port-A-Cath is present, unchanged. Thyroid gland is unremarkable. Abdomen: Liver is nodular with shrunken appearance, unchanged. Spleen is enlarged. Splenic varices are present. Otherwise, visualized upper abdominal solid organs appear normal. Upper abdominal bowel loops are normal in caliber. IMPRESSION: Relatively stable appearance of previously identified pulmonary nodules. No new nodules are identified. Interval decrease in size of chest wall fluid collection likely related to postoperative seroma. Suspected excision of previous enlarged left axillary lymph node. Partially visualized appearance of cirrhosis and portal venous hypertension, unchanged. Dictated by: Myra Calvert M.D. on 12/31/2021 at 18:46 Approved by: Myra Calvert M.D. on 12/31/2021 at 18:56
== END ==
PROVIDERS: PCP Family Medicine; Referring Provider Radiology Radiation Oncology; Visit Provider Radiology Radiation Oncology
DX: C50.412 Malignant neoplasm of upper-outer quadrant of left female breast (principal); R91.8 Other nonspecific abnormal finding of lung field
CPT/HCPCS: 70491; 71260; Q9967

== ENCOUNTER → 2022-01-08 14:46 | Outpatient (ROUT) | payer MEDICARE, SELFPAY ==
[2021-11-19 14:58] VITALS: BMI 29.8
[2022-01-08 15:03] LABS: Appearance Urine UA CLOUDY; Bilirubin Urine UA NEGATIVE (NEGATIVE); Color Urine UA YELLOW; Glucose Urine UA NEGATIVE (Negative); Ketones Urine UA TRACE (NEGATIVE); Leukocyte Esterase Urine UA 3+ (NEGATIVE); Nitrite Urine UA POSITIVE (Negative); Occult Blood Urine UA 3+ (Negative); Protein Urine UA 3+ (Negative); Urobilinogen Urine UA 0.2 E.U./dL (0.2)
[2022-01-08 15:17] LABS: RBC Urine 10-30/HPF (0-5/HPF); Squamous Epithelial Cell Urine None Seen (0-5/HPF); WBC Urine >100/HPF (0-5/HPF)
[2022-01-08 15:18] LABS: Bacteria Urine Many (>30); Culture Indicated Urine Specimen Cultured
== END ==
PROVIDERS: PCP Family Medicine; Visit Provider Family Medicine
DX: N30.01 Acute cystitis with hematuria (principal)
CPT/HCPCS: 81001; 87077; 87086; 87186

== ENCOUNTER → 2022-01-18 17:12 | Outpatient (CLI) | payer MEDICARE, SELFPAY ==
[2021-11-19 14:58] VITALS: BMI 29.8
== END ==
PROVIDERS: PCP Family Medicine; Visit Provider Pediatrics
DX: N39.0 Urinary tract infection, site not specified (principal)
CPT/HCPCS: 87086

== ENCOUNTER → 2022-03-31 13:25 | Outpatient (CLI) | payer MEDICARE, SELFPAY ==
[2021-11-19 14:58] VITALS: BMI 29.8
== END ==
PROVIDERS: PCP Family Medicine; Visit Provider Registered Nurse
DX: R30.0 Dysuria (principal)
CPT/HCPCS: 87077; 87086; 87186

== ENCOUNTER → 2022-04-15 10:59 | Outpatient (CLI) | payer MEDICARE, SELFPAY ==
[2021-11-19 14:58] VITALS: BMI 29.8
== END ==
PROVIDERS: PCP Family Medicine; Visit Provider Urology
DX: N39.0 Urinary tract infection, site not specified (principal); R31.0 Gross hematuria
CPT/HCPCS: 81002; 87086; 87186

== ENCOUNTER → 2022-04-22 12:49 | Outpatient (CLI) | payer MEDICARE, SELFPAY ==
[2021-11-19 14:58] VITALS: BMI 29.8
== END ==
PROVIDERS: PCP Family Medicine; Visit Provider Urology
DX: N39.0 Urinary tract infection, site not specified (principal); R31.0 Gross hematuria
CPT/HCPCS: 81002; 87086

== ENCOUNTER → 2022-05-27 12:13 | Outpatient (CLI) | payer MEDICARE, SELFPAY ==
[2021-11-19 14:58] VITALS: BMI 29.8
[2022-05-27 13:30] LABS: Appearance Urine UA CLEAR; Bilirubin Urine UA NEGATIVE (NEGATIVE); Color Urine UA YELLOW; Glucose Urine UA NEGATIVE (Negative); Ketones Urine UA NEGATIVE (NEGATIVE); Leukocyte Esterase Urine UA 3+ (NEGATIVE); Nitrite Urine UA NEGATIVE (Negative); Occult Blood Urine UA 1+ (Negative); Protein Urine UA 1+ (Negative); Specific Gravity Urine UA <=1.005 (1.000-1.035); Urobilinogen Urine UA 0.2 E.U./dL (0.2)
[2022-05-27 13:44] LABS: pH Urine UA 6.5 (4.5-8.0)
[2022-05-27 13:47] LABS: RBC Urine 1-5/HPF (0-5/HPF)
[2022-05-27 13:48] LABS: Bacteria Urine None Seen; Culture Indicated Urine Specimen Cultured; Squamous Epithelial Cell Urine 1-5 /HPF (0-5/HPF); Transitional Epi Cells Urine 1-5/HPF (0-5/HPF); WBC Urine 30-100/HPF (0-5/HPF)
== END ==
PROVIDERS: PCP Family Medicine; Referring Provider Urology; Visit Provider Urology
DX: R31.0 Gross hematuria (principal)
CPT/HCPCS: 81001; 87086

== ENCOUNTER → 2022-06-01 14:25 | Outpatient (CLI) | payer MEDICARE, SELFPAY ==
[2021-11-19 14:58] VITALS: BMI 29.8
== END ==
PROVIDERS: PCP Family Medicine; Visit Provider Urology
DX: N39.0 Urinary tract infection, site not specified (principal); R31.0 Gross hematuria
CPT/HCPCS: 87077; 87086; 87186

== ENCOUNTER → 2022-07-23 13:54 | Outpatient (CLI) | payer MEDICARE, SELFPAY ==
[2021-11-19 14:58] VITALS: BMI 29.8
[2022-07-23 14:37] LABS: Appearance Urine UA CLEAR; Bilirubin Urine UA NEGATIVE (NEGATIVE); Color Urine UA YELLOW; Glucose Urine UA NEGATIVE (Negative); Ketones Urine UA NEGATIVE (NEGATIVE); Leukocyte Esterase Urine UA NEGATIVE (NEGATIVE); Nitrite Urine UA NEGATIVE (Negative); Occult Blood Urine UA NEGATIVE (Negative); Protein Urine UA NEGATIVE (Negative); Urobilinogen Urine UA 0.2 E.U./dL (0.2)
[2022-07-23 14:40] LABS: pH Urine UA 6.5 (4.5-8.0)
[2022-07-23 14:50] LABS: Bacteria Urine None Seen; Culture Indicated Urine Cult Not Indicated; RBC Urine 0-1/HPF (0-5/HPF); Squamous Epithelial Cell Urine 0-1 /HPF (0-5/HPF); WBC Urine None Seen (0-5/HPF)
== END ==
PROVIDERS: PCP Family Medicine; Referring Provider Urology; Visit Provider Urology
DX: N39.0 Urinary tract infection, site not specified (principal); R31.0 Gross hematuria
CPT/HCPCS: 81001

== ENCOUNTER → 2022-07-30 09:38 | Outpatient (CLI) | payer MEDICARE, SELFPAY ==
[2021-11-19 14:58] VITALS: BMI 29.8
== END ==
PROVIDERS: PCP Family Medicine; Visit Provider Urology
DX: N39.0 Urinary tract infection, site not specified (principal); R31.0 Gross hematuria
CPT/HCPCS: 81002; 87086

== ENCOUNTER → 2022-08-18 12:24 | Outpatient (CLI) | payer MEDICARE, SELFPAY ==
[2022-08-05 11:13] VITALS: BMI 29.8
--- NOTE | 2022-08-18 12:25 | DI.CT.S_ITS ---
PROCEDURE: CT CHEST ABD PEL W CON INDICATIONS: Follow-up pulmonary nodules, cirrhosis, ascites TECHNIQUE: After the administration of oral and intravenous contrast, axial sections acquired from the supraclavicular neck to the pubic symphysis. Coronal and sagittal reformats were performed. For radiation dose reduction, the following was used: automated exposure control, adjustment of mA and/or kV according to patient size. COMPARISON: [facility], CT, CT CHEST W CON, 12/31/2021, 13:49. FINDINGS: Image quality: Excellent. CHEST: Lungs and pleura: The lungs have peripheral septal thickening most prominent in the left apex which is worse compared to the prior CT on 12/31/2021. Left lower lobe nodules including a 3 mm nodule series 3, image 146. Previous area of nodularity in the right perihilar region is not well visualized on this study. No pleural effusions or pneumothorax. Central and peripheral airways are patent and normal in caliber. Mediastinum: Heart size is normal. Coronary arteries have atherosclerotic calcifications. No pericardial effusion. No mediastinal adenopathy by size criteria. Thoracic aorta and central pulmonary arteries are normal in size. Esophagus is normal in caliber. No hiatal hernia. Chest wall: No axillary or supraclavicular adenopathy by size criteria. Thyroid gland is normal. There is significant edema of the left breast with skin thickening of the left breast measuring up to 8 mm. A fluid collection within the left breast upper outer quadrant measures 3.0 x 2.3 cm, smaller compared to the prior CT. A left axillary lymph node measures 1.6 cm in short axis, not present/enlarged on the prior CT on 12/31/2021. Surgical clips are present within the left axilla. Right Port-A-Cath is present in unchanged position. ABDOMEN: Liver: The liver has an irregular contour consistent with cirrhosis. Small amount of perihepatic and perisplenic ascites is seen. No intrahepatic biliary ductal dilatation. Innumerable vague hypodensities/heterogeneity of the liver seen, however no well-defined masses. The portal vein and hepatic veins are patent. Biliary: Status post cholecystectomy. Pancreas: The pancreas has no mass or ductal dilatation. There is no surrounding inflammation. Spleen: The spleen is enlarged. Adrenals: No hypertrophy or nodules. Kidneys: No obstructive calculus or hydronephrosis. No solid mass. No cystic mass. Bowel: The distal esophagus and stomach are normal. The small bowel has a normal caliber and appearance. The terminal ileum is normal. The large bowel has diverticulosis with no evidence of diverticulitis. No free fluid or air. Nodes and vessels: No retroperitoneal or mesenteric adenopathy by size criteria. Aorta and inferior vena cava are normal in size. Abdominal wall: No abdominal wall mass or hernia. PELVIS: Genitourinary: The bladder has no wall thickening or mass. Bone: No suspicious bony lesions. No acute vertebral body compression fractures. Remote compression fracture of T8. IMPRESSION: 1. Stable appearance of previously described left pulmonary nodule. 2. Decrease in size of left breast upper outer quadrant seroma. 3. Interval development of significant left breast edema and skin thickening of the left breast measuring up to 8 mm. If the patient has been receiving radiation this could be secondary to radiation. 4. Cirrhosis with sequela of portal venous hypertension including ascites and splenomegaly. 5. Interval development of left apical septal thickening and opacity. Differential diagnosis includes metastatic disease, however if patient has been receiving radiation this could be secondary to radiation. Dictated by: Swapnil Sheriff M.D. on 08/19/2022 at 8:12 Approved by: Swapnil Sheriff M.D. on 08/19/2022 at 8:35
== END ==
PROVIDERS: PCP Family Medicine; Referring Provider Family Medicine; Visit Provider Family Medicine
DX: R91.1 Solitary pulmonary nodule (principal); K74.60 Unspecified cirrhosis of liver; R18.8 Other ascites; K76.6 Portal hypertension; C50.912 Malignant neoplasm of unspecified site of left female breast; R16.1 Splenomegaly, not elsewhere classified; E11.9 Type 2 diabetes mellitus without complications; I10 Essential (primary) hypertension; I25.10 Atherosclerotic heart disease of native coronary artery without angina pectoris; K57.30 Diverticulosis of large intestine without perforation or abscess without bleeding; N64.89 Other specified disorders of breast; Z90.49 Acquired absence of other specified parts of digestive tract
CPT/HCPCS: 71260; 74177; Q9967

== ENCOUNTER 2022-08-21 17:49 | Emergency (ER) | payer MEDICARE, SELFPAY ==
[2022-08-05 11:13] VITALS: BMI 29.8
[2022-08-21 18:17] VITALS: BP 130/60; PULSE 82; RESP 18; TEMP 37.2; O2SAT 98; BMI 27.7
[2022-08-21 18:26] LABS: Appearance Urine UA SL CLOUDY; Bilirubin Urine UA NEGATIVE (NEGATIVE); Color Urine UA LT. YELLOW; Glucose Urine UA NEGATIVE (Negative); Ketones Urine UA NEGATIVE (NEGATIVE); Leukocyte Esterase Urine UA 3+ (NEGATIVE); Nitrite Urine UA NEGATIVE (Negative); Occult Blood Urine UA 1+ (Negative); Protein Urine UA NEGATIVE (Negative); Specific Gravity Urine UA <=1.005 (1.000-1.035); Urobilinogen Urine UA 0.2 E.U./dL (0.2)
[2022-08-21 18:35] LABS: pH Urine UA 6.5 (4.5-8.0)
[2022-08-21 18:47] LABS: Amorphous Sediment Urine 1+; Bacteria Urine Moderate (10-30); Culture Indicated Urine Specimen Cultured; RBC Urine 0-1/HPF (0-5/HPF); Renal Epithelial Cells Urine 1-5/HPF (0-1/HPF); Squamous Epithelial Cell Urine 1-5 /HPF (0-5/HPF); WBC Urine 30-100/HPF (0-5/HPF)
--- NOTE | 2022-08-21 18:57 | ED_ITS ---
HPI - General Adult General Chief complaint: Urogenital-Female Stated complaint: per pt bladder infection Time Seen by Provider: 08/21/22 18:47 Source: patient and family Mode of arrival: Ambulatory Limitations: no limitations History of Present Illness HPI narrative: Patient is a 81-year-old female. She is currently undergoing immunotherapy for breast cancer. She also has had issues with a persistent urinary tract infection. She has been under the care for urology. Earlier this month she finished a 60 day course of Augmentin which I suspect was for prophylactic reasons and had a cystoscopy. The cystoscopy went well. She is not had any symptoms for the past couple weeks until last evening when she started to have urinary frequency and dysuria. She denies any nausea or vomiting. No fevers. No abdominal pain. Related Data Home Medications Medication Instructions Recorded Confirmed multivitamin 1 tab PO DAILY ##0 12/01/10 08/13/22 acetaminophen 500 mg tablet 500 mg PO Q6H PRN Pain (Scale 04/06/19 08/13/22 (Tylenol Extra Strength) Score 1-3) Previous Rx's Medication Instructions Recorded nystatin 100,000 unit/gram topical 1 applic topical BID #60 applic 09/14/21 powder blood sugar diagnostic (Blood #50 ea 10/06/21 Glucose Test strips) blood-glucose meter #1 ea 10/06/21 lancets #200 ea 10/06/21 ezetimibe 10 mg tablet See Rx Instructions .Route 10/26/21 .COMPLEX #90 tabs lidocaine-prilocaine 2.5 %-2.5 % 1 applic topical PRN PRN Pain #30 10/26/21 topical cream grams amlodipine 5 mg tablet 5 mg PO DAILY #90 tabs 12/18/21 metformin 1,000 mg tablet 1,000 mg PO BID #180 tabs 12/18/21 losartan 50 mg-hydrochlorothiazide See Rx Instructions .Route 06/29/22 12.5 mg tablet .COMPLEX #90 tabs cephalexin 500 mg capsule 500 mg PO BID 7 days #14 caps 08/21/22 Allergies Allergy/AdvReac Type Severity Reaction Status Date / Time No Known Drug Allergies Allergy Verified 08/13/22 10:46 Review of Systems Constitutional Constitutional: Reports system reviewed and no additional complaints, except as documented Gastrointestinal Gastrointestinal: Reports system reviewed and no additional complaints, except as documented Genitourinary Genitourinary: Reports system reviewed and no additional complaints, except as documented Hematologic/Lymphatic On Anticoagulants: No Patient History Medical History Carpal tunnel syndrome (Unknown) Cirrhosis Diverticular disease (Unknown) Gross hematuria Hyperglycemia (Unknown) Hyperlipemia (Unknown) Hypertension (Unknown) 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 Pulmonary nodule Right hip pain Splenomegaly Strain of tendon of left rotator cuff Surgical History H/O right wrist surgery History of carpal tunnel release (Unknown) History of partial mastectomy of left breast (07/29/21) History of surgery Hx of appendectomy (Unknown) Hx of cataract surgery (Unknown) Hx of cholecystectomy Hx of eye surgery Status post cholecystectomy Family History Father Cancer Mother Cancer Social History marital status: number of children: 3 household members: family Smoking Status: Never smoker alcohol intake: never substance use type: does not use Smoking Status: Never smoker alcohol intake frequency: 0-2 drinks per day Substance Use Type: does not use Exam Initial Vital Signs Initial Vital Signs: Vital Signs Temperature 99 F 08/21/22 18:17 Pulse Rate 82 08/21/22 18:17 Respiratory Rate 18 08/21/22 18:17 Blood Pressure 130/60 08/21/22 18:17 Pulse Oximetry 98 08/21/22 18:17 Oxygen Delivery Method 08/21/22 18:17 Const General: cooperative and healthy appearing Resp Effort & Inspection: normal respiratory effort Cardio Rate: regular rate GI Inspection: normal to inspection Neuro General: patient alert, patient awake and moves all extremities Gait: normal gait Course Orders Ordered: ED Orders 08/21/22 18:15 Urinalysis and Microscopic Stat Urine Culture Stat Vital Signs Vital signs: Vital Signs - 8 hr 08/21/22 18:17 Temperature 99 F Pulse Rate 82 Respiratory Rate 18 Blood Pressure 130/60 Pulse Oximetry 98 Oxygen Delivery Method Room Air Medical Decision Making Differential Diagnosis Differential Diagnosis: UTI, pyelo, and others Condition is:: Well Controlled Medical Records Medical records reviewed: Yes I reviewed the patient's medical records. Lab Data Lab results reviewed: Yes I reviewed the patient's lab results. Labs: Lab Results 08/21/22 Range/Units 18:15 Urine Color Lt. yellow Urine Appearance Sl cloudy Urine pH 6.5 (4.5-8.0) Ur Specific [place] <=1.005 (1.000-1.035) Urine Protein Negative (Negative) Urine Glucose (UA) Negative (Negative) g/dL Urine Ketones Negative (NEGATIVE) Urine Occult Blood 1+ H (Negative) Urine Nitrate Negative (Negative) Urine Bilirubin Negative (NEGATIVE) Urine Urobilinogen 0.2 (0.2) E.U./dL Ur Leukocyte Esterase 3+ H (NEGATIVE) Urine RBC 0-1/hpf (0-5/HPF) Urine WBC 30-100/hpf H (0-5/HPF) Ur Squamous Epith Cells 1-5 /hpf (0-5/HPF) Ur Renal Epithelial Cell 1-5/hpf H (0-1/HPF) Amorphous Sediment 1+ Urine Bacteria Moderate (10-30) H (None) Ur Culture Indicated? Specimen cultured Urine Dip Bedside Urine Glucose Negative Bedside Urine Bilirubin - Negative Bedside Urine Ketone - Negative Urine Specific [place] 1.005 Bedside Urine Occult Blood +/- Bedside Urine pH 6.5 Bedside Urine Protein - Negative Bedside Urine Urobilinogen - Negative Bedside Urine Nitrite - Negative Bedside Urine Leukocytes ++ 125 Esterase Point of care testing: Urine Dip Bedside Urine Glucose Negative Bedside Urine Bilirubin - Negative Bedside Urine Ketone - Negative Urine Specific [place] 1.005 Bedside Urine Occult Blood +/- Bedside Urine pH 6.5 Bedside Urine Protein - Negative Bedside Urine Urobilinogen - Negative Bedside Urine Nitrite - Negative Bedside Urine Leukocytes ++ 125 Esterase MDM Narrative Medical decision making narrative: Given her symptoms and urinalysis today I do suspect a urinary tract infection. I did review her prior urology notes. She was on Augmentin and have been on for 60 days prior to this cystoscopy. I suspect that this was for prophylaxis and not necessarily treatment. I did review her prior urine cultures. Plan today is to start her on Keflex. Her prior cultures show bacteria that is susceptible to this. This was sent to the pharmacy of her choice. I have low suspicion for pyelonephritis. She is not been vomiting. She is nontoxic. A urine culture is pending at the time of her discharge. Will have her contact her urologist on Tuesday for follow-up. She was also told that if we needed to change her antibiotics based on the culture results we will call her. This discussion was had with family at bedside. She was given strict return precautions. She expressed understanding and agreement. Discharge Plan Departure Patient Disposition: Home Clinical Impression: Urinary tract infection Instructions: DI for Urinary Tract Infection (UTI) Activity Restrictions/Additional Instructions: A urine culture was pending at the time of your discharge today. If we need to switch any antibiotics we will contact you to let you know. I do recommend that on Tuesday you contact your urologist office for a follow-up. Return to the emergency department for any new or worsening symptoms. Prescriptions: New cephalexin 500 mg capsule 500 mg PO BID 7 Days Qty: 14 0RF No Action multivitamin Tablet 1 tab PO DAILY Qty: 0 ezetimibe 10 mg tablet See Rx Instructions .ROUTE .COMPLEX Qty: 90 3RF Dose Instruction: TAKE ONE TABLET BY MOUTH ONE TIME DAILY Rx Instructions: TAKE ONE TABLET BY MOUTH ONE TIME DAILY losartan-hydrochlorothiazide 50-12.5 mg tablet See Rx Instructions .ROUTE .COMPLEX Qty: 90 0RF Dose Instruction: TAKE ONE TABLET BY MOUTH ONE TIME DAILY Rx Instructions: TAKE ONE TABLET BY MOUTH ONE TIME DAILY (DME) blood-glucose meter Mis See Rx Instructions .Route Qty: 1 0RF Rx Instructions: Check blood glucose BID (DME) Blood Glucose Test Strip See Rx Instructions .Route Qty: 50 6RF Rx Instructions: As directed (DME) lancets Misc See Rx Instructions .Route Qty: 200 0RF Rx Instructions: As directed amlodipine 5 mg tablet 5 mg PO DAILY Qty: 90 3RF metformin 1,000 mg tablet 1,000 mg PO BID Qty: 180 3RF Rx Instructions: Start with 1 pill at dinner the 1st week then advanced to twice daily acetaminophen [Tylenol Extra Strength] 500 mg tablet 500 mg PO Q6H PRN (Reason: Pain (Scale Score 1-3)) nystatin 100,000 unit/gram Powder 1 applic TOPICAL BID Qty: 60 0RF Rx Instructions: Apply to affected area twice daily. Topical use only. lidocaine-prilocaine 2.5-2.5 % Cream 1 applic topical PRN PRN (Reason: Pain) Qty: 30 0RF Rx Instructions: Apply to the skin over the port at least 2 hrs before planned use of the port. Cover the cream with a small piece of plastic wrap and leave in place until the port is accessed. Referrals: Darion Clifford, [Primary Care Provider] - Stand Alone Forms: Patient Portal/API
== END 2022-08-21 19:16 | disposition home or self-care (01) ==
PROVIDERS: Emergency Provider Emergency Medicine; PCP Family Medicine
DX: N39.0 Urinary tract infection, site not specified (principal)
CPT/HCPCS: 81001; 81003; 87077; 87086; 87186; 99281; 99282

== ENCOUNTER → 2022-09-10 09:58 | Outpatient (CLI) | payer MEDICARE, SELFPAY ==
[2022-08-05 11:13] VITALS: BMI 29.8
--- NOTE | 2022-09-10 10:02 | DI.MG.S_ITS ---
BILATERAL DIGITAL DIAGNOSTIC MAMMOGRAM 3D/2D - RIGHT BREAST POST LUMPECTOMY: 09/10/2022 CLINICAL: Post left lumpectomy and radiation therapy. Comparison is made to exams dated: 08/27/2021 ultrasound, 06/29/2021 mammogram, 06/02/2021 ultrasound, 06/02/2021 mammogram, 04/30/2021 mammogram, and 04/28/2020 mammogram - [facility]. There are scattered areas of fibroglandular density in both breasts (category b / 25%-50% glandular tissue). Trabecular coarsening and skin thickening throughout the left breast, presumably due to radiation therapy. Increased number of calcifications in the left breast, most of which appear secretory in nature, when compared with the prior exam. No discrete mass. IMPRESSION: INCOMPLETE: NEEDS ADDITIONAL IMAGING EVALUATION Increased number of likely secretory calcifications in the left breast since prior study along with presumed radiation changes. A follow-up mammogram in 6 months is recommended to demonstrate stability. This exam was interpreted at Station ID: [id number]. NOTE: For mammograms, a report in lay terms will be sent to the patient. Approximately 15% of breast malignancies will not be visualized mammographically. In the management of a palpable breast mass, a negative mammogram must not discourage biopsy of a clinically suspicious lesion. Electronically Signed By: Jeremi Harrison M.D. jr/:09/10/2022 11:09:48 letter sent: Followup Recommended ACR BI-RADS Category 0: Incomplete [id number]
== END ==
PROVIDERS: PCP Family Medicine; Referring Provider Internal Medicine Hematology & Oncology; Visit Provider Internal Medicine Hematology & Oncology
DX: R92.8 Other abnormal and inconclusive findings on diagnostic imaging of breast; R92.1 Mammographic calcification found on diagnostic imaging of breast; C50.412 Malignant neoplasm of upper-outer quadrant of left female breast; N63.20 Unspecified lump in the left breast, unspecified quadrant
CPT/HCPCS: 77066; G0279

== ENCOUNTER → 2022-10-13 09:16 | Outpatient (CLI) | payer MEDICARE, SELFPAY ==
[2022-09-17 14:24] VITALS: BMI 29.8
[2022-10-13 10:13] LABS: Add Manual Diff / Slide Review NO; Basophils Absolute Auto 0 /uL (0-100); Basophils Percent Auto 0.7 % (0-2); Eosinophils Absolute Auto 400 /uL (0-450); Eosinophils Percent Auto 11.1 % (2-4); Hematocrit 36.4 % (36-46); Hemoglobin 12.1 g/dL (12.0-16.0); Lymphocytes Absolute Auto 500 /uL (1100-4500); Lymphocytes Percent Auto 13.8 % (25-40); Mean Corpuscular HGB Conc 33.2 % (30-36); Mean Corpuscular Hemoglobin 32.5 PG (26-34); Mean Corpuscular Volume 97.9 fL (80-100); Monocytes Absolute Auto 300 /uL (0-900); Monocytes Percent Auto 8.2 % (3-14); Neutrophils Absolute Auto 2200 /uL (1500-7000); Neutrophils Percent Auto 66.2 % (50-75); Platelet Count 85 X10^3/uL (150-400); Red Blood Cell Count 3.72 X10^6/uL (4.0-5.2); Red Cell Distribution Width 14.7 % (11.6-14.8); White Blood Cell Count 3.3 X10^3/uL (4.5-11.0)
[2022-10-13 10:14] LABS: Hemoglobin A1C% w Est Avg Glu 5.6 % (4.0-6.0)
[2022-10-13 10:31] LABS: Alanine Aminotransferase 35 IU/L (<35); Albumin 3.6 g/dL (3.5-5.0); Albumin Globulin Ratio 1.1 (1.0-2.8); Alkaline Phosphatase 178 U/L (38-126); Aspartate Aminotransferase 58 IU/L (14-36); BUN Creatinine Ratio 18.8 (6-22); Blood Urea Nitrogen 12 mg/dL (7-17); Calcium 9.2 mg/dL (8.4-10.2); Carbon Dioxide 27 mmol/L (22-32); Chloride 106 mmol/L (98-107); Estimated Glomerular Filt Rate > 60 mL/min (>60); Globulin 3.4 g/dL (1.7-4.1); Glucose 127 mg/dL (80-110); HEMOLYSIS < 15 (0-50); Sodium 139 mmol/L (137-145)
[2022-10-13 10:42] LABS: Free T4, Direct Thyroxine 1.16 ng/dL (0.78-2.19)
[2022-10-13 11:16] LABS: Vitamin B12 514 pg/mL (239-931)
[2022-10-13 11:29] LABS: Thyroid Stimulating Hormone 2.83 uIU/mL (0.47-4.68)
== END ==
PROVIDERS: PCP Family Medicine; Referring Provider Family Medicine; Visit Provider Family Medicine
DX: E11.9 Type 2 diabetes mellitus without complications (principal); I10 Essential (primary) hypertension; C50.912 Malignant neoplasm of unspecified site of left female breast; R18.8 Other ascites; K74.60 Unspecified cirrhosis of liver; R91.1 Solitary pulmonary nodule; D64.9 Anemia, unspecified
CPT/HCPCS: 36415; 80053; 82607; 83036; 84439; 84443; 85025

== ENCOUNTER → 2022-10-27 09:22 | Outpatient (CLI) | payer MEDICARE, SELFPAY ==
[2022-09-17 14:24] VITALS: BMI 29.8
[2022-10-27 09:58] LABS: Add Manual Diff / Slide Review NO; Basophils Absolute Auto 0 /uL (0-100); Basophils Percent Auto 0.6 % (0-2); Eosinophils Absolute Auto 500 /uL (0-450); Eosinophils Percent Auto 12.7 % (2-4); Hematocrit 38.6 % (36-46); Hemoglobin 12.8 g/dL (12.0-16.0); Lymphocytes Absolute Auto 500 /uL (1100-4500); Lymphocytes Percent Auto 14.7 % (25-40); Mean Corpuscular HGB Conc 33.1 % (30-36); Mean Corpuscular Hemoglobin 32.3 PG (26-34); Mean Corpuscular Volume 97.6 fL (80-100); Monocytes Absolute Auto 300 /uL (0-900); Monocytes Percent Auto 7.9 % (3-14); Neutrophils Absolute Auto 2400 /uL (1500-7000); Neutrophils Percent Auto 64.1 % (50-75); Platelet Count 86 X10^3/uL (150-400); Red Blood Cell Count 3.95 X10^6/uL (4.0-5.2); Red Cell Distribution Width 14.5 % (11.6-14.8); White Blood Cell Count 3.7 X10^3/uL (4.5-11.0)
[2022-10-27 10:09] LABS: Alanine Aminotransferase 35 IU/L (<35); Albumin 3.9 g/dL (3.5-5.0); Albumin Globulin Ratio 1.1 (1.0-2.8); Alkaline Phosphatase 143 U/L (38-126); Aspartate Aminotransferase 55 IU/L (14-36); BUN Creatinine Ratio 26.3 (6-22); Bilirubin Total 1.1 mg/dL (0.2-1.3); Blood Urea Nitrogen 15 mg/dL (7-17); Calcium 9.4 mg/dL (8.4-10.2); Carbon Dioxide 26 mmol/L (22-32); Chloride 107 mmol/L (98-107); Estimated Glomerular Filt Rate > 60 mL/min (>60); Globulin 3.7 g/dL (1.7-4.1); Glucose 124 mg/dL (80-110); HEMOLYSIS < 15 (0-50); Sodium 139 mmol/L (137-145); Total Protein 7.6 g/dL (6.3-8.2)
[2022-10-27 10:47] LABS: Thyroid Stimulating Hormone 2.39 uIU/mL (0.47-4.68)
[2022-10-28 15:50] LABS: Hep C Virus Ab w/Reflex Quant NEGATIVE s/c (NEGATIVE)
[2022-10-29 01:44] LABS: HBsAg Screen Negative (Negative); Hepatitis A Antibody IgM Negative (Negative); Hepatitis B Core Antibody IgM Negative (Negative); Hepatitis C Antibody Non Reactive (Non Reactive)
== END ==
PROVIDERS: Internal Medicine Hematology & Oncology; PCP Family Medicine; Referring Provider Family Medicine; Visit Provider Family Medicine
DX: R79.89 Other specified abnormal findings of blood chemistry (principal); C50.412 Malignant neoplasm of upper-outer quadrant of left female breast
CPT/HCPCS: 36415; 80053; 80074; 84443; 85025; 86803

== ENCOUNTER → 2022-11-03 17:27 | Outpatient (CLI) | payer MEDICARE, SELFPAY ==
[2022-09-17 14:24] VITALS: BMI 29.8
== END ==
PROVIDERS: PCP Family Medicine; Visit Provider Urology
DX: N39.0 Urinary tract infection, site not specified (principal); N32.9 Bladder disorder, unspecified; R31.0 Gross hematuria; Z87.440 Personal history of urinary (tract) infections
CPT/HCPCS: 51798; 81002; 87086; 99213

== ENCOUNTER 2022-11-09 20:18 | Emergency (ER) | payer MEDICARE, SELFPAY ==
[2022-09-17 14:24] VITALS: BMI 29.8
[2022-11-09 20:37] VITALS: BP 145/70; PULSE 100; RESP 18; TEMP 37.4; O2SAT 96
[2022-11-09 21:30] LABS: Bacteria Urine Occasional (0-1); RBC Urine 0-1/HPF (0-5/HPF); Squamous Epithelial Cell Urine 0-1 /HPF (0-5/HPF); WBC Urine 1-5/HPF (0-5/HPF)
--- NOTE | 2022-11-09 21:46 | ED_ITS ---
HPI - General Adult General Chief complaint: Urogenital-Female Stated complaint: bleeding with urination Time Seen by Provider: 11/09/22 20:48 Source: patient and family Mode of arrival: Ambulatory History of Present Illness HPI narrative: Patient is an 81-year-old female who is here for evaluation of 2 episodes today of blood in her urine. She states that she did not have any discomfort with urination. She is feeling like she is emptying her bladder. She has had urinary tract infections in the past but is not currently on any antibiotics. She does see urology because of these. She denies any trauma. No fevers. No abdominal pain. No change in bowel habits. Is not on anticoagulation. Related Data Home Medications Medication Instructions Recorded Confirmed multivitamin 1 tab PO DAILY ##0 12/01/10 11/03/22 acetaminophen 500 mg tablet 500 mg PO Q6H PRN Pain (Scale 04/06/19 11/03/22 (Tylenol Extra Strength) Score 1-3) cephalexin 500 mg tablet 500 mg PO BEDTIME 09/17/22 11/03/22 Previous Rx's Medication Instructions Recorded nystatin 100,000 unit/gram topical 1 applic topical BID #60 applic 09/14/21 powder blood sugar diagnostic (Blood #50 ea 10/06/21 Glucose Test strips) blood-glucose meter #1 ea 10/06/21 lancets #200 ea 10/06/21 lidocaine-prilocaine 2.5 %-2.5 % 1 applic topical PRN PRN Pain #30 10/26/21 topical cream grams amlodipine 5 mg tablet 5 mg PO DAILY #90 tabs 12/18/21 metformin 1,000 mg tablet 1,000 mg PO BID #180 tabs 12/18/21 losartan 50 mg-hydrochlorothiazide See Rx Instructions .Route 09/28/22 12.5 mg tablet .COMPLEX #90 tabs ezetimibe 10 mg tablet See Rx Instructions .Route 10/26/22 .COMPLEX #90 tabs Allergies Allergy/AdvReac Type Severity Reaction Status Date / Time No Known Drug Allergies Allergy Verified 11/03/22 13:34 Review of Systems Constitutional Constitutional: Reports system reviewed and no additional complaints, except as documented Respiratory Respiratory: Reports system reviewed and no additional complaints, except as documented Gastrointestinal Gastrointestinal: Reports system reviewed and no additional complaints, except as documented Genitourinary Genitourinary: Reports system reviewed and no additional complaints, except as documented Integumentary/Breasts Skin/Breast: Reports system reviewed and no additional complaints, except as documented Hematologic/Lymphatic On Anticoagulants: No Patient History Medical History Carpal tunnel syndrome (Unknown) Cirrhosis Diverticular disease (Unknown) Gross hematuria History of urinary tract infection Hyperglycemia (Unknown) Hyperlipemia (Unknown) Hypertension (Unknown) Immunotherapy 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Lesion of bladder EASTON (nonalcoholic steatohepatitis) (10/2014) 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 Pulmonary nodule Right hip pain Splenomegaly Strain of tendon of left rotator cuff Surgical History H/O right wrist surgery History of carpal tunnel release (Unknown) History of partial mastectomy of left breast (07/29/21) History of surgery Hx of appendectomy (Unknown) Hx of cataract surgery (Unknown) Hx of cholecystectomy Hx of eye surgery Status post cholecystectomy Family History Father Cancer Mother Cancer Social History marital status: number of children: 3 household members: family Smoking Status: Never smoker alcohol intake: never substance use type: does not use Smoking Status: Never smoker alcohol intake frequency: 0-2 drinks per day Substance Use Type: does not use Exam Initial Vital Signs Initial Vital Signs: Vital Signs Temperature 99.4 F 11/09/22 20:37 Pulse Rate 100 H 11/09/22 20:37 Respiratory Rate 18 11/09/22 20:37 Blood Pressure 145/70 H 11/09/22 20:37 Pulse Oximetry 96 11/09/22 20:37 Oxygen Delivery Method Room Air 11/09/22 20:37 HENMT Head: normal to inspection and normocephalic Resp Effort & Inspection: normal respiratory effort Cardio Rate: regular rate Neuro General: patient alert, patient awake and moves all extremities Extrem General: normal to inspection Course Orders Ordered: ED Orders 11/09/22 20:50 Urine Microscopic Stat 11/09/22 21:05 Urine Microscopic Stat 11/09/22 21:06 Urine Culture Stat 11/09/22 22:15 BMP [Basic Metabolic Panel] Stat Vital Signs Vital signs: Vital Signs - 8 hr 11/09/22 20:37 Temperature 99.4 F Pulse Rate 100 H Respiratory Rate 18 Blood Pressure 145/70 H Pulse Oximetry 96 Oxygen Delivery Method Room Air Medical Decision Making Lab Data Lab results reviewed: Yes I reviewed the patient's lab results. 11/09/22 22:15 Labs: Lab Results 11/09/22 11/09/22 Range/Units 20:50 22:15 Sodium 139 (137-145) mmol/L Potassium 3.8 (3.4-5.1) mmol/L Chloride 105 (98-107) mmol/L Carbon Dioxide 27 (22-32) mmol/L BUN 13 (7-17) mg/dL Creatinine 0.60 (0.52-1.04) mg/dL Estimated GFR > 60 (>60) mL/min BUN/Creatinine Ratio 21.7 (6-22) Glucose 173 H (80-110) mg/dL Calcium 9.4 (8.4-10.2) mg/dL Urine RBC 0-1/hpf (0-5/HPF) Urine WBC 1-5/hpf (0-5/HPF) Ur Squamous Epith Cells 0-1 /hpf (0-5/HPF) Urine Bacteria Occasional (0-1) (None) Urine Dip Bedside Urine Glucose Negative Bedside Urine Bilirubin - Negative Bedside Urine Ketone - Negative Urine Specific [place] 1.010 Bedside Urine Occult Blood ++ Bedside Urine pH 6.0 Bedside Urine Protein - Negative Bedside Urine Urobilinogen - Negative Bedside Urine Nitrite - Negative Bedside Urine Leukocytes +/- 15 Esterase Point of care testing: Urine Dip Bedside Urine Glucose Negative Bedside Urine Bilirubin - Negative Bedside Urine Ketone - Negative Urine Specific [place] 1.010 Bedside Urine Occult Blood ++ Bedside Urine pH 6.0 Bedside Urine Protein - Negative Bedside Urine Urobilinogen - Negative Bedside Urine Nitrite - Negative Bedside Urine Leukocytes +/- 15 Esterase MDM Narrative Medical decision making narrative: Patient did have hematuria but no signs of urinary tract infection. Her physica l exam is not consistent with a kidney stone. Her kidney function is unremarkable. She is emptying her bladder. No trauma. No fevers. No abdominal pain. No indication for radiologic studies. No indication for antibiotics. She does have a follow-up appointment with her urologist already scheduled for approximately 2 weeks from now. I feel that that is an appropriate time for her to have a re-evaluation. She was given specific return precautions. She expressed understanding and agreement. Discharge Plan Departure Patient Disposition: Home Clinical Impression: Hematuria Instructions: DI for Hematuria Activity Restrictions/Additional Instructions: I recommend that you continue to take all of your medications as directed and keep your scheduled appointment with your urologist at the beginning of next month. Return to the emergency department for any new or worsening symptoms. Prescriptions: No Action multivitamin Tablet 1 tab PO DAILY Qty: 0 losartan-hydrochlorothiazide 50-12.5 mg tablet See Rx Instructions .ROUTE .COMPLEX Qty: 90 2RF Dose Instruction: TAKE ONE TABLET BY MOUTH ONE TIME DAILY Rx Instructions: TAKE ONE TABLET BY MOUTH ONE TIME DAILY ezetimibe 10 mg tablet See Rx Instructions .ROUTE .COMPLEX Qty: 90 3RF Dose Instruction: TAKE ONE TABLET BY MOUTH ONE TIME DAILY Rx Instructions: TAKE ONE TABLET BY MOUTH ONE TIME DAILY (DME) blood-glucose meter Misc See Rx Instructions .Route Qty: 1 0RF Rx Instructions: Check blood glucose BID (DME) Blood Glucose Test Strip See Rx Instructions .Route Qty: 50 6RF Rx Instructions: As directed (DME) lancets Misc See Rx Instructions .Route Qty: 200 0RF Rx Instructions: As directed amlodipine 5 mg tablet 5 mg PO DAILY Qty: 90 3RF metformin 1,000 mg tablet 1,000 mg PO BID Qty: 180 3RF Rx Instructions: Start with 1 pill at dinner the 1st week then advanced to twice daily acetaminophen [Tylenol Extra Strength] 500 mg tablet 500 mg PO Q6H PRN (Reason: Pain (Scale Score 1-3)) nystatin 100,000 unit/gram Powder 1 applic TOPICAL BID Qty: 60 0RF Rx Instructions: Apply to affected area twice daily. Topical use only. lidocaine-prilocaine 2.5-2.5 % Cream 1 applic topical PRN PRN (Reason: Pain) Qty: 30 0RF Rx Instructions: Apply to the skin over the port at least 2 hrs before planned use of the port. Cover the cream with a small piece of plastic wrap and leave in place until the port is accessed. cephalexin 500 mg tablet 500 mg PO BEDTIME Patient Comments: Pt is still taking the 60 day course of antibiotic per Dr. Alas, 1 tab PO at bedtime. Referrals: Darion Clifford, DO [Primary Care Provider] - Stand Alone Forms: Patient Portal/API
[2022-11-09 22:35] LABS: BUN Creatinine Ratio 21.7 (6-22); Blood Urea Nitrogen 13 mg/dL (7-17); Calcium 9.4 mg/dL (8.4-10.2); Carbon Dioxide 27 mmol/L (22-32); Chloride 105 mmol/L (98-107); Estimated Glomerular Filt Rate > 60 mL/min (>60); Glucose 173 mg/dL (80-110); HEMOLYSIS < 15 (0-50); Potassium 3.8 mmol/L (3.4-5.1); Sodium 139 mmol/L (137-145)
[2022-11-09 22:52] VITALS: BP 132/60; PULSE 79; RESP 16; O2SAT 97
== END 2022-11-09 22:55 | disposition home or self-care (01) ==
PROVIDERS: Emergency Provider Emergency Medicine; PCP Family Medicine
DX: R31.9 Hematuria, unspecified (principal)
CPT/HCPCS: 80048; 81003; 81015; 87086; 99282

== ENCOUNTER → 2022-12-07 13:07 | Outpatient (CLI) | payer MEDICARE, SELFPAY ==
[2022-09-17 14:24] VITALS: BMI 29.8
--- NOTE | 2022-12-07 13:08 | DI.US.S_ITS ---
PROCEDURE: US PERIPH VENOUS UP EXTREM LT INDICATIONS: EDEMA TECHNIQUE: Real-time imaging, as well as color and pulse Doppler interrogation, was performed of the left upper extremity deep veins from the inferior neck to the antecubital fossa. COMPARISON: [facility], CT, CT CHEST ABD PEL W CON, 08/18/2022, 14:23. FINDINGS: The internal jugular vein, visualized portions of the subclavian vein, axillary, and brachial veins are free of intraluminal thrombus. Where physically possible, the veins are normally compressible. Color and pulse Doppler demonstrate normal intraluminal flow, with expected phasicity and pulsatility. Additional scanning of the cephalic and basilic veins of the superficial system demonstrate normal compressibility, without thrombus. 2.2 x 1.6 x 1.7 and 2.0 x 1.6 x 1.8 centimeter left subpectoral and axillary enlarged lymph nodes. IMPRESSION: No evidence of deep vein thrombosis involving the left upper extremity. Left supraclavicular/left axillary lymphadenopathy concerning for metastatic disease.. Dictated by: Radha Arguello MD, PhD on 12/07/2022 at 14:13 Approved by: Radha Arguello MD, PhD on 12/07/2022 at 14:15
== END ==
PROVIDERS: PCP Family Medicine; Referring Provider Internal Medicine Hematology & Oncology; Visit Provider Internal Medicine Hematology & Oncology
DX: C50.412 Malignant neoplasm of upper-outer quadrant of left female breast (principal); R59.0 Localized enlarged lymph nodes; R60.9 Edema, unspecified
CPT/HCPCS: 93971

== ENCOUNTER → 2022-12-09 10:11 | Outpatient (CLI) | payer MEDICARE, SELFPAY ==
[2022-09-17 14:24] VITALS: BMI 29.8
== END ==
PROVIDERS: PCP Family Medicine; Visit Provider Urology
DX: N39.0 Urinary tract infection, site not specified (principal)
CPT/HCPCS: 87077; 87086; 87185; 87186

== ENCOUNTER → 2023-01-10 09:31 | Outpatient (CLI) | payer MEDICARE, SELFPAY ==
[2022-12-17 11:45] VITALS: BMI 29.8
--- NOTE | 2023-01-10 | DI.US.S_ITS ---
PROCEDURE: US ABDOMEN COMPLETE INDICATIONS: UNSPECIFIED CIRRHOSIS OF LIVER TECHNIQUE: Real-time scanning was performed of the abdominal and retroperitoneal organs, with image documentation. COMPARISON: [facility] Ultrasound, US, ABDOMEN SONOGRAM, 08/05/2014, 8:29. [facility], CT, CT CHEST ABD PEL W CON, 08/18/2022, 14:23. (An ultrasound from 2016 is not available for review from the archive at the time of this dictation.) FINDINGS: Liver: The liver demonstrates enlarged size. The liver demonstrates generalized moderately increased echogenicity. This decreases ultrasound sensitivity for detection of hepatic masses. Gallbladder: Removed. Biliary ducts: Intrahepatic bile ducts are non-dilated. Extrahepatic bile duct caliber measures 7-8 mm. Normal is 6-7 mm or less in diameter, or 10 mm or less post-cholecystectomy. Pancreas: Visualized portions of the pancreas are sonographically normal. Spleen: The spleen measures at the upper limits of normal at 12.8 cm. No focal splenic abnormality is seen. Kidneys: Kidneys are normal in size and echotexture. Right kidney measures 10.5 cm long; left kidney measures 11 cm long. No hydronephrosis or nephrolithiasis. No solid masses. Aorta: Visualized aorta is normal in caliber at less than 3 cm. Iliacs: Proximal common iliac arteries are normal in caliber at less than 2.5 cm. IVC: Intrahepatic inferior vena cava is patent. Miscellaneous: No free abdominal fluid. IMPRESSION: Enlarged liver with increased echogenicity. Differential diagnosis includes cirrhosis and fatty liver infiltration. Status post cholecystectomy, without biliary dilatation. Dictated by: Remington Ag M.D. on 01/10/2023 at 10:04 Approved by: Remington Ag M.D. on 01/10/2023 at 10:13
== END ==
PROVIDERS: Family Provider Family Medicine; PCP Family Medicine; Referring Provider Internal Medicine Gastroenterology; Visit Provider Internal Medicine Gastroenterology
DX: K74.60 Unspecified cirrhosis of liver (principal); R18.8 Other ascites; Z90.49 Acquired absence of other specified parts of digestive tract
CPT/HCPCS: 76700

== ENCOUNTER → 2023-01-17 11:31 | Outpatient (CLI) | payer MEDICARE, SELFPAY ==
[2022-12-17 11:45] VITALS: BMI 29.8
[2023-01-17 14:08] LABS: Add Manual Diff / Slide Review NO; Basophils Absolute Auto 0 /uL (0-100); Basophils Percent Auto 0.5 % (0-2); Eosinophils Absolute Auto 500 /uL (0-450); Eosinophils Percent Auto 11.8 % (2-4); Hemoglobin 12.6 g/dL (12.0-16.0); Lymphocytes Absolute Auto 600 /uL (1100-4500); Lymphocytes Percent Auto 14.4 % (25-40); Mean Corpuscular Hemoglobin 33.5 PG (26-34); Mean Corpuscular Volume 98.5 fL (80-100); Monocytes Absolute Auto 400 /uL (0-900); Monocytes Percent Auto 8.5 % (3-14); Neutrophils Absolute Auto 2800 /uL (1500-7000); Neutrophils Percent Auto 64.8 % (50-75); Platelet Count 91 X10^3/uL (150-400); Red Blood Cell Count 3.76 X10^6/uL (4.0-5.2); Red Cell Distribution Width 14.6 % (11.6-14.8); White Blood Cell Count 4.3 X10^3/uL (4.5-11.0)
[2023-01-17 14:31] LABS: INR 1.2 (0.9-1.3); Prothrombin Time 13.9 SECONDS (10.1-12.7)
[2023-01-17 14:55] LABS: Alanine Aminotransferase 43 IU/L (<35); Albumin 3.9 g/dL (3.5-5.0); Albumin Globulin Ratio 1.1 (1.0-2.8); Alkaline Phosphatase 146 U/L (38-126); Aspartate Aminotransferase 67 IU/L (14-36); Bilirubin Total 0.8 mg/dL (0.2-1.3); Blood Urea Nitrogen 12 mg/dL (7-17); Calcium 9.7 mg/dL (8.4-10.2); Carbon Dioxide 25 mmol/L (22-32); Chloride 104 mmol/L (98-107); Estimated Glomerular Filt Rate > 60 mL/min (>60); Globulin 3.7 g/dL (1.7-4.1); Glucose 91 mg/dL (80-110); HEMOLYSIS < 15 (0-50); Potassium 3.9 mmol/L (3.4-5.1); Sodium 138 mmol/L (137-145); Total Protein 7.6 g/dL (6.3-8.2)
[2023-01-18 06:37] LABS: Alpha Fetoprotein 3.3 ng/mL (0.0-8.7)
== END ==
PROVIDERS: Family Provider Family Medicine; PCP Family Medicine; Referring Provider Internal Medicine Gastroenterology; Visit Provider Internal Medicine Gastroenterology
DX: R18.8 Other ascites (principal); K74.60 Unspecified cirrhosis of liver; Z90.12 Acquired absence of left breast and nipple
CPT/HCPCS: 36415; 80053; 82105; 85025; 85610

== ENCOUNTER → 2023-01-31 10:04 | Outpatient (CLI) | payer MEDICARE, SELFPAY ==
[2022-12-17 11:45] VITALS: BMI 29.8
--- NOTE | 2023-01-31 10:05 | DI.MG.S_ITS ---
UNILATERAL LEFT DIGITAL DIAGNOSTIC MAMMOGRAM 3D/2D POST LUMPECTOMY: 01/31/2023 CLINICAL: Short term follow up for the left breast. Comparison is made to exams dated: 09/10/2022 mammogram, 06/02/2021 mammogram, 04/30/2021 mammogram, and 06/29/2021 mammogram - [facility]. There are scattered areas of fibroglandular density in the left breast (category b / 25%-50% glandular tissue). There are stable grouped large rodlike calcifications in the left breast at 1 o'clock posterior depth. Persistent trabecular and skin thickening in the left breast. No other significant masses or calcifications are seen in the breast. IMPRESSION: PROBABLY BENIGN The stable grouped large rodlike calcifications in the left breast are probably benign. A follow-up mammogram in 6 months is recommended. These appear secretory. Persistent trabecular and skin thickening in the left breast. These may be due to radiation changes. Differential includes lymphatic infiltration of malignancy. Clinical evaluation, followup and possible skin biopsy could be pursued. A follow-up mammogram in 6 months is recommended to demonstrate stability. This exam was interpreted at Station ID: [id number]. NOTE: For mammograms, a report in lay terms will be sent to the patient. Approximately 15% of breast malignancies will not be visualized mammographically. In the management of a palpable breast mass, a negative mammogram must not discourage biopsy of a clinically suspicious lesion. Electronically Signed By: Pedro Early M.D. lc/:01/31/2023 10:59:56 letter sent: Clinical Evaluation ACR BI-RADS Category 3: Probably benign [id number]
== END ==
PROVIDERS: Family Provider Family Medicine; PCP Family Medicine; Referring Provider Internal Medicine Hematology & Oncology; Visit Provider Internal Medicine Hematology & Oncology
DX: C50.412 Malignant neoplasm of upper-outer quadrant of left female breast (principal); N63.20 Unspecified lump in the left breast, unspecified quadrant
CPT/HCPCS: 77065; G0279

== ENCOUNTER 2023-02-16 09:19 | Day surgery (SDC) | payer MEDICARE, SELFPAY ==
[2022-12-17 11:45] VITALS: BMI 29.8
[2023-02-16] VITALS (7 sets, daily range): BP systolic 75–137; BP diastolic 42–71; PULSE 70–85; RESP 13–20; TEMP 36.2–36.5; O2SAT 92–99; BMI 28.2
[2023-02-16] MEDS: LACTATED RINGERS 1,000 ML 100 ML IV (09:49)
--- NOTE | 2023-02-16 10:07 | PM.HP.1 ---
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 Pulmonary nodule Right hip pain Splenomegaly Strain of tendon of left rotator cuff Well adult exam Surgical History H/O right wrist surgery History of carpal tunnel release (Unknown) History of partial mastectomy of left breast (07/29/21) History of surgery Hx of appendectomy (Unknown) Hx of cataract surgery (Unknown) Hx of cholecystectomy Hx of eye surgery Status post cholecystectomy Family History Father Cancer Mother Cancer Social History marital status: number of children: 3 household members: family Smoking Status: Never smoker alcohol intake: never substance use type: does not use Meds Home Medications and Allergies Home Medications Medication Instructions Recorded Confirmed Type multivitamin 1 tab PO DAILY ##0 12/01/10 02/16/23 History acetaminophen 500 mg tablet 500 mg PO Q6H PRN Pain (Scale 04/06/19 02/16/23 History (Tylenol Extra Strength) Score 1-3) blood-glucose meter #1 ea 10/06/21 01/24/23 Rx lancets #200 ea 10/06/21 01/24/23 Rx lidocaine-prilocaine 2.5 %-2.5 % 1 applic topical PRN PRN Pain #30 10/26/21 02/16/23 Rx topical cream grams losartan 50 mg-hydrochlorothiazide See Rx Instructions .Route 09/28/22 02/16/23 Rx 12.5 mg tablet .COMPLEX #90 tabs ezetimibe 10 mg tablet See Rx Instructions .Route 10/26/22 02/16/23 Rx .COMPLEX #90 tabs amlodipine 5 mg tablet 5 mg PO DAILY #90 tabs 12/20/22 02/16/23 Rx blood sugar diagnostic (Blood #50 ea 12/20/22 01/24/23 Rx Glucose Test strips) metformin 1,000 mg tablet 1,000 mg PO BID #180 tabs 12/20/22 02/16/23 Rx Allergies Allergy/AdvReac Type Severity Reaction Status Date / Time No Known Drug Allergies Allergy Verified 12/20/22 13:50 Exam Vital Signs (past 8 hours): - 02/16/23 09:37 Temperature 97.5 F L Pulse Rate 85 Respiratory Rate 18 Blood Pressure 137/68 Pulse Oximetry 97 Oxygen Delivery Method Room Air Oxygen Delivery Method Room Air Narrative Exam Narrative: Oropharynx free of lesions Chest clear to auscultation percussion Cardiac exam reveals no S3 or murmur Assessment & Plan Assessment & Plan narrative: Underlying liver disease rule out esophageal varices and band if present. Risks benefits and alternatives have been explained.
--- NOTE | 2023-02-16 10:08 | PM.OP.EGD ---
Operative Date/Time/Diagnoses Date of procedure: 02/16/23 Pre-op diagnosis: See indication and findings Procedure & Clinicians Study performed: EGD with possible variceal banding if varices are present Indications: Underlying liver disease rule out varices Surgeon: Madalyn Elise Procedure Notes Procedure in detail: After informed consent was obtained the patient was placed in left lateral decubitus position. The video upper scope placed into the oropharynx and with the patient's help swelled into the esophagus. The esophagus stomach and duodenum were carefully examined. On withdrawal, retroflexed view the GE junction was performed. The scope was removed. The patient tolerated procedure well. Blood loss none Complications none Sedation mac Findings 1. Grade a esophageal varices with very small distal varices. Banding not performed 2. Moderately severe gastroduodenal signs of portal hypertension. Few hematin flecks seen I would not routinely suggest follow-up surveillance for varices given her age and other medical problems
== END 2023-02-16 11:28 | disposition home or self-care (01) ==
PROVIDERS: Family Provider Family Medicine; PCP Family Medicine; Referring Provider Internal Medicine Gastroenterology; Visit Provider Internal Medicine Gastroenterology
PROC: 0DJ08ZZ Inspection of Upper Intestinal Tract, Via Natural or Artificial Opening Endoscopic (ICD-10-PCS; CPT 43235; principal; 2023-02-16 10:30)
DX: K74.69 Other cirrhosis of liver (principal); I85.10 Secondary esophageal varices without bleeding; K76.6 Portal hypertension; I10 Essential (primary) hypertension; E78.5 Hyperlipidemia, unspecified; C50.919 Malignant neoplasm of unspecified site of unspecified female breast; C77.3 Secondary and unspecified malignant neoplasm of axilla and upper limb lymph nodes; R59.0 Localized enlarged lymph nodes
CPT/HCPCS: 44376; 76536; J2704

== ENCOUNTER → 2023-02-16 09:21 | Outpatient (CLI) | payer MEDICARE, SELFPAY ==
[2022-12-17 11:45] VITALS: BMI 29.8
--- NOTE | 2023-02-16 09:22 | DI.US.S_ITS ---
PROCEDURE: US SOFT TISSUE HEAD AND NECK INDICATIONS: LEFT SUPRACLAVICULAR LUMPS TECHNIQUE: Real-time scanning was performed of the neck region of interest, with image documentation. COMPARISON: None. FINDINGS: Prominent enlarged supraclavicular lymph nodes within the left neck with abnormal morphology. IMPRESSION: Prominent enlarged lymph nodes within the left neck with abnormal morphology. Findings concerning for metastatic lymphadenopathy. Consider tissue sampling. Dictated by: Stephan Chambers M.D. on 02/16/2023 at 17:15 Approved by: Stephan Chambers M.D. on 02/16/2023 at 17:18
== END ==
PROVIDERS: Family Provider Family Medicine; PCP Family Medicine; Referring Provider Internal Medicine Hematology & Oncology; Visit Provider Internal Medicine Hematology & Oncology
DX: C50.919 Malignant neoplasm of unspecified site of unspecified female breast (principal); C77.3 Secondary and unspecified malignant neoplasm of axilla and upper limb lymph nodes; R59.0 Localized enlarged lymph nodes
CPT/HCPCS: 76536

== ENCOUNTER 2023-02-25 10:43 | Emergency (ER) | payer MEDICARE, SELFPAY ==
[2022-12-17 11:45] VITALS: BMI 29.8
[2023-02-25 10:50] VITALS: BP 158/69; PULSE 90; RESP 18; TEMP 36.4; O2SAT 97; BMI 28.5
[2023-02-25 11:17] LABS: Bacteria Urine Many (>30); Culture Indicated Urine Specimen Cultured; RBC Urine None Seen (0-5/HPF); Squamous Epithelial Cell Urine 0-1 /HPF (0-5/HPF); WBC Urine 30-100/HPF (0-5/HPF)
--- NOTE | 2023-02-25 11:29 | ED_ITS ---
HPI - Female Genitourinary <GONZALO HeP - Last Filed: 02/25/23 11:43> General Chief complaint: Urogenital-Female Stated complaint: bladder infection/HX of infection Time Seen by Provider: 02/25/23 10:55 Source: patient Mode of arrival: Ambulatory History of Present Illness HPI Narrative: This is an 82-year-old female with history of reported chronic UTI over the last [address] Vaughan from Urology and presents to the emergency department with dysuria for the last 2 days, denies hematuria, wheezes, abdominal pain, nausea vomiting. She states that she has bladder spasm and burning when she voids. Denies any other symptoms, denies back pain, denies incontinence, urinary retention, flank pain or other associated symptoms. States that she is called Dr. Vaughan's office 3 times with no reply so she came to the emergency department. Related Data Home Medications Medication Instructions Recorded Confirmed multivitamin 1 tab PO DAILY ##0 12/01/10 02/16/23 acetaminophen 500 mg tablet 500 mg PO Q6H PRN Pain (Scale 04/06/19 02/16/23 (Tylenol Extra Strength) Score 1-3) Previous Rx's Medication Instructions Recorded blood-glucose meter #1 ea 10/06/21 lancets #200 ea 10/06/21 lidocaine-prilocaine 2.5 %-2.5 % 1 applic topical PRN PRN Pain #30 10/26/21 topical cream grams losartan 50 mg-hydrochlorothiazide See Rx Instructions .Route 09/28/22 12.5 mg tablet .COMPLEX #90 tabs ezetimibe 10 mg tablet See Rx Instructions .Route 10/26/22 .COMPLEX #90 tabs amlodipine 5 mg tablet 5 mg PO DAILY #90 tabs 12/20/22 blood sugar diagnostic (Blood #50 ea 12/20/22 Glucose Test strips) metformin 1,000 mg tablet 1,000 mg PO BID #180 tabs 12/20/22 Disabled Parking Permint #1 ea 02/21/23 nitrofurantoin 100 mg PO BID 7 days #14 caps 02/25/23 monohydrate/macrocrystals 100 mg capsule (Macrobid) phenazopyridine 100 mg tablet 100 mg PO Q8H PRN urinary pain 6 02/25/23 (Pyridium) doses #7 tabs Allergies Allergy/AdvReac Type Severity Reaction Status Date / Time No Known Drug Allergies Allergy Verified 12/20/22 13:50 Review of Systems <HIRAM He - Last Filed: 02/25/23 11:43> Review of Systems ROS Unobtainable: All systems reviewed & are unremarkable except as noted in HPI and below Patient History <HIRAM He - Last Filed: 02/25/23 11:43> Medical History Carpal tunnel syndrome (Unknown) Cirrhosis Diverticular disease (Unknown) Gross hematuria History of urinary tract infection Hyperglycemia (Unknown) Hyperlipemia (Unknown) Hypertension (Unknown) Immunotherapy 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Lesion of bladder Medicare annual wellness visit, subsequent [place] (nonalcoholic steatohepatitis) (10/2014) 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 Pulmonary nodule Right hip pain Splenomegaly Strain of tendon of left rotator cuff Well adult exam Surgical History H/O right wrist surgery History of carpal tunnel release (Unknown) History of partial mastectomy of left breast (07/29/21) History of surgery Hx of appendectomy (Unknown) Hx of cataract surgery (Unknown) Hx of cholecystectomy Hx of eye surgery Status post cholecystectomy Family History Father Cancer Mother Cancer alcohol intake frequency: 0-2 drinks per day Substance Use Type: does not use Exam <HIRAM He - Last Filed: 02/25/23 11:43> Narrative Exam Narrative: Reviewed vitals signs and nursing notes. General: Pleasant, sitting upright, in no acute distress, well groomed, afebrile HEENT: symmetrical facial expressions, moist mucous membranes, neck is supple CV: regular rate and rhythm, warm extremities Respiratory: normal work of breathing, without tachypnea or hypoxia. GI: abdomen soft, nondistended, without CVA tenderness bilaterally no abdominal tenderness Skin: brisk capillary refill, without rash or wound Neuro: clear speech and normal cognition, A&O x3, GCS 15 Initial Vital Signs Initial Vital Signs: Vital Signs Temperature 97.5 F L 02/25/23 10:50 Pulse Rate 90 02/25/23 10:50 Respiratory Rate 18 02/25/23 10:50 Blood Pressure 158/69 H 02/25/23 10:50 Pulse Oximetry 97 02/25/23 10:50 Oxygen Delivery Method Room Air 02/25/23 10:50 <Jordin Mares DO - Last Filed: 02/26/23 09:09> Initial Vital Signs Initial Vital Signs: Vital Signs Temperature 97.5 F L 02/25/23 10:50 Pulse Rate 90 02/25/23 10:50 Respiratory Rate 18 02/25/23 10:50 Blood Pressure 158/69 H 02/25/23 10:50 Pulse Oximetry 97 02/25/23 10:50 Oxygen Delivery Method Room Air 02/25/23 10:50 Course <HIRAM He - Last Filed: 02/25/23 11:43> Orders Ordered: Discontinued Medications Nitrofurantoin Macrocrystals (Nitrofurantoin Er 100 Mg Capsule) 100 mg PO NOW ONE Stop: 02/25/23 11:35 Last Admin: 02/25/23 11:38 Dose: 100 mg Documented By: DONALD Phenazopyridine HCl (Phenazopyridine 100 Mg Tablet) 100 mg PO NOW ONE Stop: 02/25/23 11:35 Last Admin: 02/25/23 11:38 Dose: 100 mg Documented By: DONALD Vital Signs Vital signs: Vital Signs - 8 hr 02/25/23 10:50 Temperature 97.5 F L Pulse Rate 90 Respiratory Rate 18 Blood Pressure 158/69 H Pulse Oximetry 97 Oxygen Delivery Method Room Air <Jordin Mares DO - Last Filed: 02/26/23 09:09> Orders Ordered: Discontinued Medications Nitrofurantoin Macrocrystals (Nitrofurantoin Er 100 Mg Capsule) 100 mg PO NOW ONE Stop: 02/25/23 11:35 Last Admin: 02/25/23 11:38 Dose: 100 mg Documented By: DONALD Phenazopyridine HCl (Phenazopyridine 100 Mg Tablet) 100 mg PO NOW ONE Stop: 02/25/23 11:35 Last Admin: 02/25/23 11:38 Dose: 100 mg Documented By: DONALD Vital Signs Vital signs: Vital Signs - 8 hr 02/25/23 10:50 Temperature 97.5 F L Pulse Rate 90 Respiratory Rate 18 Blood Pressure 158/69 H Pulse Oximetry 97 Oxygen Delivery Method Room Air MDM - Female Genitourinary <HIRAM He - Last Filed: 02/25/23 11:43> Lab Data Lab results narrative: [facility] CLIA ID [id number] [address] [place] [address] RUN DATE: 02/25/23 Specimen Inquiry PAGE 1 RUN TIME: 1141 Name: Patricia Giordano Age/Sex: 82/F Attend Dr: Aleksey Vaughan MD Unit#: [id number] : 1940Location: LAB Re12/09/22 Disch: Status: REG CLI SPEC #: [id number] ANTOINETTE: 12/09/22 STATUS: COMP REQ #: [id number] SPDESC: RECD: 12/09/[address]: Aleksey Vaughan MD SOURCE: Urine CC ENTR: 12/09/[address]: Darion Clifford D.Scott FAX TO: ORDERED: URINE CULTURE Procedure Result Verified Site Urine Culture Final 12/14/22707 Organism 1 Enterococcus avium [place] Count 90,000 - 100,000 CFU/ml Action to follow No Further Workup Beta Lactamase NEGATIVE 1. Enterococcus avium M.I.C. RX --------- --- * Ampicillin <=2 S * Vancomycin <=0.5 S * Ciprofloxacin 1 S * Gentamicin 500 SYN-S S * Levofloxacin 2 S * Linezolid 2 S * Nitrofurantoin 32 S * Streptomycin 2000 SYN-S S * Tetracycline >=16 R Labs: Lab Results 02/25/23 Range/Units 11:08 Urine RBC None seen (0-5/HPF) Urine WBC 30-100/hpf H (0-5/HPF) Ur Squamous Epith Cells 0-1 /hpf (0-5/HPF) Urine Bacteria Many (>30) H (None) Ur Culture Indicated? Specimen cultured Urine Dip Bedside Urine Glucose 500 mg/dl Bedside Urine Bilirubin - Negative Bedside Urine Ketone - Negative Urine Specific [place] 1.015 Bedside Urine Occult Blood + Bedside Urine pH 6.0 Bedside Urine Protein + 30 Bedside Urine Urobilinogen - Negative Bedside Urine Nitrite - Negative Bedside Urine Leukocytes ++ 125 Esterase MDM Narrative Medical decision making narrative: Chief Complaint: Dysuria Multiple etiologies for patient's complaint considered including, but not limited to: acute cystitis, pyelonephritis, dehydration, vaginitis, infected nephrolithiasis, urethritis, vaginal infection/PID, malignancy I have independently reviewed the patient's vital signs and nursing notes as well as prior records if available. Patient's UA is positive for leukocytes and bacteria, culture is pending. Last urine culture from 12/09/2022 grew Enterococcus avium showing susceptibility to nitrofurantoin. Since patient does not have upper UTI symptoms, will treat with Macrobid. She was given a 7 day course as she reports she is leaving on a 4 day trip later in March and did not want to have recurrence of her symptoms to soon. Forwarded note to Dr. Vaughan, encouraged her to follow-up with Dr. Vaughan as needed or if she has recurrence. No hematuria. Social considerations that may affect disposition: none Questions are addressed and there is agreement with the plan and for follow-up. I consulted with the ED attending physician Dr. Mares as needed for higher level of care considerations and they were available for discussion and recommendations regarding plan of care and diagnostic testing. Patient is appropriate for outpatient management. <Jordin Mares, DO - Last Filed: 02/26/23 09:09> Lab Data Labs: Lab Results 02/25/23 Range/Units 11:08 Urine RBC None seen (0-5/HPF) Urine WBC 30-100/hpf H (0-5/HPF) Ur Squamous Epith Cells 0-1 /hpf (0-5/HPF) Urine Bacteria Many (>30) H (None) Ur Culture Indicated? Specimen cultured Urine Dip Bedside Urine Glucose 500 mg/dl Bedside Urine Bilirubin - Negative Bedside Urine Ketone - Negative Urine Specific [place] 1.015 Bedside Urine Occult Blood + Bedside Urine pH 6.0 Bedside Urine Protein + 30 Bedside Urine Urobilinogen - Negative Bedside Urine Nitrite - Negative Bedside Urine Leukocytes ++ 125 Esterase Discharge Plan Departure Patient Disposition: Home Clinical Impression: Urinary tract infection Qualifiers: Urinary tract infection type: acute cystitis Hematuria presence: without hematuria Qualified Code(s): N30.00 - Acute cystitis without hematuria Instructions: DI for Urinary Tract Infection (UTI) Activity Restrictions/Additional Instructions: *You have been diagnosed with a urinary tract infection. We will treat this with a medication that works on the bladder, if you develop a fever, chills, nausea or vomiting, please come back in for a different antibiotic as that means your urinary tract infection has progressed. You will likely get better soon, please use Pyridium as needed for bladder pain or burning when you void. Stay hydrated, complete your antibiotics, we will call you if the culture suggests a change in antibiotics and we will change that for you if needed. *What to do: *Please continue to take your regular medications as directed. [x ] New medication prescriptions sent to your pharmacy: [ [facility]] [ ] New medication written as a paper prescription [ ] No new medications given *Please call and schedule follow up with your primary care provider in 2-3 days, at least for an update. Let them know you were seen in the Emergency Department for the above problem. We will electronically transmit a record of today's note if your PCP or specialist is in our system. *If you do not have a primary care provider please contact [phone] to establish care with one of the [facility] primary care providers. *Return to the Emergency Department for worsening symptoms, inability to keep liquids down, fever greater than 101F, chills, or other concerning symptom. Prescriptions: New nitrofurantoin monohyd/m-cryst [Macrobid] 100 mg capsule 100 mg PO BID 7 Days Qty: 14 0RF Rx Instructions: must administer with a meal/food phenazopyridine [Pyridium] 100 mg tablet 100 mg PO Q8H PRN (Reason: urinary pain) Qty: 7 0RF No Action multivitamin Tablet 1 tab PO DAILY Qty: 0 losartan-hydrochlorothiazide 50-12.5 mg tablet See Rx Instructions .ROUTE .COMPLEX Qty: 90 2RF Dose Instruction: TAKE ONE TABLET BY MOUTH ONE TIME DAILY Rx Instructions: TAKE ONE TABLET BY MOUTH ONE TIME DAILY ezetimibe 10 mg tablet See Rx Instructions .ROUTE .COMPLEX Qty: 90 3RF Dose Instruction: TAKE ONE TABLET BY MOUTH ONE TIME DAILY Rx Instructions: TAKE ONE TABLET BY MOUTH ONE TIME DAILY (DME) Disabled Parking Permint See Rx Instructions .ROUTE .MEDSUPPLY Qty: 1 0RF Rx Instructions: I find this patient to be medically disabled and qualified for Disabled Parking as indicated and signed on the Accompanying Disabled Parking Application for individuals. (DME) blood-glucose meter Misc See Rx Instructions .Route Qty: 1 0RF Rx Instructions: Check blood glucose BID (DME) lancets Misc See Rx Instructions .Route Qty: 200 0RF Rx Instructions: As directed amlodipine 5 mg tablet 5 mg PO DAILY Qty: 90 3RF metformin 1,000 mg tablet 1,000 mg PO BID Qty: 180 3RF Rx Instructions: Start with 1 pill at dinner the 1st week then advanced to twice daily (DME) Blood Glucose Test Strip See Rx Instructions .Route Qty: 50 6RF Rx Instructions: As directed acetaminophen [Tylenol Extra Strength] 500 mg tablet 500 mg PO Q6H PRN (Reason: Pain (Scale Score 1-3)) lidocaine-prilocaine 2.5-2.5 % Cream 1 applic topical PRN PRN (Reason: Pain) Qty: 30 0RF Rx Instructions: Apply to the skin over the port at least 2 hrs before planned use of the port. Cover the cream with a small piece of plastic wrap and leave in place until the port is accessed. Referrals: Darion Clifford DO [Primary Care Provider] - Aleksey Vaughan MD [Physician] - Stand Alone Forms: Patient Portal/API <Jordin Mares DO - Last Filed: 02/26/23 09:09> Cosaditya ED Attending Williamature Attestation: I was immediately available in the department for consultation. Documentation has been reviewed. I agree with assessment and plan.
[2023-02-25] MEDS: PHENAZOPYRIDINE 100 MG TABLET PO (11:38)
[2023-02-25] MEDS: NITROFURANTOIN ER 100 MG CAPSULE PO (11:38)
== END 2023-02-25 11:50 | disposition home or self-care (01) ==
PROVIDERS: Emergency Medicine; Emergency Provider Nurse Practitioner Critical Care Medicine; Family Provider Family Medicine; PCP Family Medicine
DX: N30.00 Acute cystitis without hematuria (principal)
CPT/HCPCS: 81003; 81015; 87077; 87086; 87186; 99283; 99284

== ENCOUNTER → 2023-03-15 08:34 | Outpatient (CLI) | payer MEDICARE, SELFPAY ==
[2022-12-17 11:45] VITALS: BMI 29.8
--- NOTE | 2023-03-15 | PATH_ITS ---
[facility] Accession Number: [id number] No. of containers..01 Tissue . 01 Material submitted: . lymph node - LEFT SUPRACLAVICULAR LYMPH NODE . 01 Diagnosis: Lymph Node, Left Supraclavicular, Image-Guided Core Biopsy: Scant fragments of metastatic poorly differentiated carcinoma, suggestive of origin from patient's known breast primary (see comment). [facility] 03/28/2023 1520 Local . 01 Comment: The specimen consists primarily of nests of a poorly differentiated carcinoma with scant fibroadipose tissue and lymphoid cells. A panel of immunostains is obtained for further classification, with the controls stained appropriately. The tumor shows the following results (block A1): . Cytokeratin 7: Uniformly positive. Cytokeratin 20: Negative. P40: Negative. GATA3: Focally positive. GCDFP15: Negative. Mammoglobin: Negative. Estrogen receptor: Negative. PAX8: Negative. TTF1: Negative. Villin: Focally positive. CDX2: Negative. . 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 There is no other confirmatory or additionally supportive evidence of a breast primary (negative GCDFP15 and mammoglobin). Furthermore, the expression of the gastrointestinal marker villin, as exmplified in this case, is considered very unusual for a breast primary; therefore, the possibility of origin from upper gastrointestinal tract/pancreatobiliary tree cannot be excluded completely. Otherwise, there is no evidence for squamous differentiation (negative p40), metastatic adenocarcinoma from lung (negative TTF1) or metastatic carcinoma from gynecologic tract (negative PAX8). . * This test was developed and its performance characteristics determined by [facility]. It has not been cleared or approved by the U.S. Food and Drug Administration. The FDA has determined that such clearance or approval is not necessary. This test is used for clinical purposes. It should not be regarded as investigational or for research. . 01 Electronically signed: . Dina Damian MD, Pathologist NPI- [id number] . 01 Gross description: . Received in formalin, labeled with the patient's name and US biopsy lymph node are eight elongated cylindrical cores and fragments of cores ranging from 0.2 to 1.1 cm long with a uniform 0.1 cm diameter. Cores are submitted in A1-A2. ([id number]) /MRV 03/16/2023 1723 Local . 01 Pathologist provided ICD-10: R22.1 . 01 CPT . 916012, T13100, N43180 Specimen Comment: A courtesy copy of this report has been sent to [phone] Performed at: 01 [facility] [address] [place] [address] [address], [place], [place] [id number] MD Sagar Sparks MD Phone: [phone]
--- NOTE | 2023-03-15 08:35 | DI.US.S_ITS ---
PROCEDURE: US BIOPSY LYMPH NODE INDICATIONS: LEFT SUPRACLAVICULAR LYMPHNODE BIOPSY TECHNIQUE: The indications, alternatives, benefits, risks, and complications of the procedure were explained to the patient. Written informed consent was obtained and placed in the chart. Real-time sonography was utilized to choose the site for percutaneous lymph node sampling. The skin was prepped and draped in the usual sterile fashion. 1% lidocaine was infiltrated down to the site of interest. A coaxial needle was then advanced into the site of interest under direct sonographic visualization. A biopsy apparatus was then utilized, and core biopsies were obtained. The needle was then withdrawn; a bandage was applied to the biopsy site. COMPARISON: None. FINDINGS: Biopsy site(s): Left supraclavicular lymph node. Needle: Cloudyn biopsy needle set. Number of passes: 4 Medications: 1% lidocaine for local anaesthesia. Complications: None. IMPRESSION: Successful ultrasound-guided left supraclavicular lymph node biopsy, with pathology results pending. Dictated by: Brandon Mai M.D. on 03/15/2023 at 11:23 Approved by: Brandon Mai M.D. on 03/15/2023 at 11:24
== END ==
PROVIDERS: Family Provider Family Medicine; PCP Family Medicine; Referring Provider Internal Medicine Hematology & Oncology; Visit Provider Internal Medicine Hematology & Oncology
DX: C50.412 Malignant neoplasm of upper-outer quadrant of left female breast (principal); R59.0 Localized enlarged lymph nodes
CPT/HCPCS: 38505; 76942

== ENCOUNTER → 2023-03-21 15:37 | Outpatient (CLI) | payer MEDICARE, SELFPAY ==
[2022-12-17 11:45] VITALS: BMI 29.8
[2023-03-21 16:30] LABS: HEMOLYSIS < 15 (0-50)
[2023-03-21 16:45] LABS: Alanine Aminotransferase 34 IU/L (<35); Albumin 3.6 g/dL (3.5-5.0); Albumin Globulin Ratio 0.9 (1.0-2.8); Alkaline Phosphatase 148 U/L (38-126); Aspartate Aminotransferase 70 IU/L (14-36); BUN Creatinine Ratio 25.3 (6-22); Bilirubin Total 0.7 mg/dL (0.2-1.3); Blood Urea Nitrogen 19 mg/dL (7-17); Calcium 9.9 mg/dL (8.4-10.2); Carbon Dioxide 27 mmol/L (22-32); Chloride 104 mmol/L (98-107); Estimated Glomerular Filt Rate > 60 mL/min (>60); Glucose 97 mg/dL (80-110); Potassium 4.5 mmol/L (3.4-5.1); Sodium 139 mmol/L (137-145); Total Protein 7.6 g/dL (6.3-8.2)
[2023-03-21 17:45] LABS: Hemoglobin A1C% w Est Avg Glu 5.5 % (4.0-6.0)
[2023-03-21 18:14] LABS: HEMOLYSIS < 15 (0-50); Iron 123 ug/dL (37-170)
[2023-03-21 18:25] LABS: Percent Iron Saturation 30 % (15-50); Total Iron Binding Capacity 405 ug/dL (265-497)
[2023-03-21 18:26] LABS: Transferrin 301 mg/dL (206-381)
[2023-03-21 18:30] LABS: Vitamin B12 546 pg/mL (239-931)
== END ==
PROVIDERS: Family Provider Family Medicine; PCP Family Medicine; Referring Provider Family Medicine; Visit Provider Family Medicine
DX: E11.9 Type 2 diabetes mellitus without complications (principal); D64.9 Anemia, unspecified; E78.2 Mixed hyperlipidemia; I10 Essential (primary) hypertension
CPT/HCPCS: 36415; 80053; 82607; 83036; 83540; 83550

== ENCOUNTER → 2023-05-03 13:57 | Outpatient (CLI) | payer MEDICARE, SELFPAY ==
[2022-12-17 11:45] VITALS: BMI 29.8
== END ==
PROVIDERS: Family Provider Family Medicine; PCP Family Medicine; Referring Provider Family Medicine; Visit Provider Surgery
DX: S41.102A Unspecified open wound of left upper arm, initial encounter (principal); C79.81 Secondary malignant neoplasm of breast
CPT/HCPCS: 97602; 99203; 99212; 99213

== ENCOUNTER 2023-05-05 15:45 | Outpatient (RCR) | payer MEDICARE, SELFPAY ==
[2022-12-17 11:45] VITALS: BMI 29.8
--- NOTE | 2023-01-26 17:11 | PT.OIE ---
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) Lymphedema, not elsewhere classified (01/26/23) Past Medical History (Last Reviewed 12/20/22 @ 14:40 by Darion Clifford DO) Carpal tunnel syndrome (Unknown) Cirrhosis Diverticular disease (Unknown) Gross hematuria History of urinary tract infection Hyperglycemia (Unknown) Hyperlipemia (Unknown) Hypertension (Unknown) Immunotherapy 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Lesion of bladder Medicare annual wellness visit, subsequent [place] (nonalcoholic steatohepatitis) (10/2014) 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 Pulmonary nodule Right hip pain Splenomegaly Strain of tendon of left rotator cuff Well adult exam Past Surgical History (Last Reviewed 12/20/22 @ 14:40 by Darion Clifford DO) H/O right wrist surgery History of carpal tunnel release (Unknown) History of partial mastectomy of left breast (07/29/21) History of surgery Hx of appendectomy (Unknown) Hx of cataract surgery (Unknown) Hx of cholecystectomy Hx of eye surgery Status post cholecystectomy Visit Care Team Role Provider Type Darion Clifford DO Family Provider Physician Primary Care Provider Specialty: Family Practice Address: [address] [place] [address], [id number] Email: [email or web address] Attending Provider Physician Referring Provider Specialty: Oncology Address: [address] [place] [address], [id number] Email: [email or web address] Physical Therapy Initial Evaluation PT-OP-A Visit Information Start: 01/25/23 16:40 Freq: Status: Active Protocol: Document 01/26/23 10:30 NIKOLAI (Rec: 01/26/23 11:57 [facility] [id number]) Out-Patient Physical Therapy Visit Information Visit Information Visit Type Initial Evaluation Visit Start Time 10:30 Visit Stop Time 11:55 Total Visit Minutes 85 Visit Number 1 Evaluation Information Evaluation Date 01/26/23 PT-OP-B Current Condition Start: 01/25/23 16:40 Freq: Status: Active Protocol: Document 01/26/23 10:30 SAK (Rec: 01/26/23 11:57 [facility] [id number]) Current Condition History of Current Condition Onset Date 1 month Current Complaints lymphedema left UE and breast History of Current Condition 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 Has had radiation and chemotherapy completed in 2021. Reports when getting her port flushed 1 month ago the nurse noticed swelling in her left UE, also identified in her left breast. Patient denies pain or other symptoms except reporting bruising left under arm area which is new and she is going to have an ultrasound and mammogram on 01/31/23. Reports some stiffness left UE with decreased ability to use for usual activities. Not currently doing any exercises; states was not given any to do after surgery. Prior Treatments and Tests chemotherapy radiation immunotherapy Future Testing and Treatments Planned Ultrasound and mammogram due to bruised area left axillary region. Treatment Goals Patient/Caregiver Goals Decrease swelling and return to full active use of her left UE. Prior Functional Status Baseline Function- ADL's Independent Baseline Function- Mobility Independent Current Functional Impairments (Reported) Functional Limitations- ADL's difficult to use left UE PT-OP-C Subjective Start: 01/25/23 16:40 Freq: Status: Active Protocol: Document 01/26/23 10:30 SAK (Rec: 01/26/23 17:06 [facility] [id number]) OP-PT Pain Assessment Pain Assessment Grid Paper Pain Assessment Grid Completed No PT-OP-F Manual Assessment Start: 01/25/23 16:40 Freq: Status: Active Protocol: Document 01/26/23 10:30 SAK (Rec: 01/26/23 17:06 [facility] [id number]) Manual Assessments Soft Tissue Assessment Soft Tissue Mobility Assessment peau d'orange skin changes left breast. Noted significant bruises with induration lateral left breast and subaxillary region with are palpable soft tissue nodules same region PT-OP-H Neuro Start: 01/25/23 16:40 Freq: Status: Active Protocol: Document 01/26/23 10:30 SAK (Rec: 01/26/23 17:06 [facility] [id number]) Sensation Evaluation Gross Sensation Gross Sensation WNL PT-OP-J Posture/Palpation/Skin Start: 01/25/23 16:40 Freq: Status: Active Protocol: Document 01/26/23 10:30 SAK (Rec: 01/26/23 17:06 [facility] [id number]) Posture Evaluation Position Sitting Head/C-Spine Posture Forward Head T-Spine Posture Increased Kyphosis Shoulder Posture (L) Rounded,(R) Rounded Arm Posture (L) Internally Rotated,(R) Internally Rotated Skin Assessment Edema Assessment left UE and breast Edema Appearance Discolored,Puffy Subjective Edema Description Tightness PT-OP-K Range of Motion Start: 01/25/23 16:40 Freq: Status: Active Protocol: Document 01/26/23 10:30 SAK (Rec: 01/26/23 17:06 [facility] [id number]) Shoulder Goniometric Range of Motion Shoulder Left Active Shoulder ROM WFL No Flexion 135 Extension 25 Abduction 150 External Rotation at 0 degrees Abduction 45 Internal Rotation 40 Internal Rotation Behind Back (text) lateral hip Right Active Shoulder ROM WFL Yes Shoulder ROM Limitations Shoulder ROM Limitations Soft Tissue Tightness,Pain, Swelling Elbow/Forearm Range of Motion Elbow/Forearm kiesha Elbow/Forearm ROM WFL Yes PT-OP-N Lymphedema Start: 01/25/23 16:40 Freq: Status: Active Protocol: Document 01/26/23 10:30 SAK (Rec: 01/26/23 11:57 [facility] [id number]) Lymphedema Measurements Upper Extremity Circumference Measurements Left Affected MCP 19.7 cm Dorsum of Hand 20.4 cm Wrist 19.9 cm 5 cm From Wrist Crease 24.2 cm 10 cm From Wrist Crease 27.8 cm 15 cm From Wrist Crease 30.6 cm 20 cm From Wrist Crease 31.9 cm 25 cm From Wrist Crease 31.2 cm 30 cm From Wrist Crease 36.4 cm 35 cm From Wrist Crease 38.2 cm 40 cm From Wrist Crease 38.5 cm 45 cm From Wrist Crease 36.8 cm Elbow Joint 31.2 cm Right Unaffected MCP 18.8 cm Dorsum of Hand 19 cm Wrist 17.8 cm 5 cm From Wrist Crease 20.6 cm 10 cm From Wrist Crease 23.2 cm 15 cm From Wrist Crease 25.8 cm 20 cm From Wrist Crease 27 cm 25 cm From Wrist Crease 27.9 cm 30 cm From Wrist Crease 30.7 cm 35 cm From Wrist Crease 32 cm 40 cm From Wrist Crease 32.4 cm 45 cm From Wrist Crease 32.6 cm Elbow Joint 27.6 cm Axilla 32.9 cm - pt left handed - nipple line 119 subaxillary 98.9 Comments Lymphedema Comments Applied size F Tubigrip to left UE for trial. Issued packet of lymphedema info and reviewed; lymphedema massage, exercise, bandaging, and online and local resources for the above as well as compression garments. chip bag and white channel foam issued for use in bra, and compression bra loaned for trial as well. PT-OP-Q Treatments Start: 01/25/23 16:40 Freq: Status: Active Protocol: Document 01/26/23 10:30 [facility] (Rec: 01/26/23 17:06 [facility] [id number]) Self-Care/Home Management Treatment Education Other Education lymphedema treatment Activities Self-Care/Home Management Activities reviewed lymphedema packet of information Lymphedema Treatment Lymphedema Wrapping Body Location left UE, left breast Materials size E Tubigrip wrist to axilla trial swell spot left breast; too uncomfortable, issued chip bag and white channel foam for trial in bra plus loan compression bra for trial Sequential Lymphedema Exercises Location for left UE Duration 10 Comments handout issued Compression Garment Assessment Compression Garment Assessment Details discussed options, applied size E Tubigrip wrist to axilla Patient Education Lymphedema Pathology instructed Lymphedema Prevention instructed Lymphedema Precautions instructed Compression Garments discussed options Self Manual Lymphatic Drainage instructed and issued handout Sequential Lymphedema Exercises instructed and issued handout Other information packet issued including local and online resources PT-OP-T Assessment and Plan Start: 01/25/23 16:40 Freq: Status: Active Protocol: Document 01/26/23 10:30 [facility] (Rec: 01/26/23 17:06 [facility] [id number]) Physical Therapy Assessment Rehab Potential Rehabilitation Potential Good Evaluation Complexity Number of Personal Factors/Comorbidities 1-2 Number of Body Systems Impaired 3 Impairments Impairments Edema,ROM,Soft Tissue Mobility Goals Three Impairment lymphedema life impact scale Prep Person Goal (LTG) decrease by at least 50% as measure of improved quality of life LTG Duration 04/28/23 Two Impairment decreased left UE ROM Short Term Goal (STG) Patient to be instructed in ROM exercises for left UE STG Duration 02/25/23 Alf Goal (LTG) Patient to demonstrate full active ROM left UE and be able to return to normal use of her left UE for all activities LTG Duration 04/28/23 One Impairment lymphedema left UE and breast Short Term Goal (STG) Patient to be instructed in all aspects of lymphedema care to include skin care, precautions, MLD, lymphedema exercises, compression STG Duration 02/25/23 Prep Person Goal (LTG) Decrease lymphedema to a stable level (no increase or decrease greater than 1 cm over the course of 1 week), patient to obtain appropriate and effective compression garments for breast and left UE, and demonstrate good understanding of all aspects of self-care for lymphedema LTG Duration 04/28/23 Assessment Summary Assessment Patient presents to PT with function-limiting lymphedema left UE and breast s/p partial mastectomy, chemotherapy and radiation treatments. Additionally she has significant bruising and palpable soft tissue nodules lateral left breast and subaxillary region with thickened tissue for which she will receive further testing 01/31/23. She has pea d-orange skin changes on her breast. No signs or symtpoms of cellulitis or fibrosis left UE . Feel she would benefit from PT for lymphedema care as noted above. POC was discussed with patient and she was in agreement. peau d'orange skin changes. The left upper outer and left side of the breast showed significant bruises with induration. There are some soft tissue nodules imbedded in that area. Physical Therapy Plan Frequency and Duration Frequency of Treatment 20 visits Duration of treatment (weeks) 12 Plan of Care Start Date 01/26/23 Plan of Care End Date 04/28/23 Therapeutic Interventions Therapeutic Interventions Lymphedema Management,Manual Therapy,Patient/Caregiver Education,Self-Care/Home Management,Taping,Therapeutic Exercises Next Visit Focus/Plan Next Note Type Treatment Note Next Visit Plan Perform MLD, apply compression banding, problem-solve compression for breast, perform sequential lymphedema exercises, continue patient education regarding self-care for lymphedema.
--- NOTE | 2023-01-26 17:12 | PT.OPPOC ---
Physical, Occupational & Speech Therapy At 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 Plan Of Care PT-OP-T Assessment and Plan Start: 01/25/23 16:40 Freq: Status: Active Protocol: Document 01/26/23 10:30 [facility] (Rec: 01/26/23 17:06 [facility] [id number]) Physical Therapy Assessment Rehab Potential Rehabilitation Potential Good Evaluation Complexity Number of Personal Factors/Comorbidities 1-2 Number of Body Systems Impaired 3 Impairments Impairments Edema,ROM,Soft Tissue Mobility Goals Three Impairment lymphedema life impact scale Water Fabricator Operator Goal (LTG) decrease by at least 50% as measure of improved quality of life LTG Duration 04/28/23 Two Impairment decreased left UE ROM Short Term Goal (STG) Patient to be instructed in ROM exercises for left UE STG Duration 02/25/23 Water Fabricator Operator Goal (LTG) Patient to demonstrate full active ROM left UE and be able to return to normal use of her left UE for all activities LTG Duration 04/28/23 One Impairment lymphedema left UE and breast Short Term Goal (STG) Patient to be instructed in all aspects of lymphedema care to include skin care, precautions, MLD, lymphedema exercises, compression STG Duration 02/25/23 Half-Way Goal (LTG) Decrease lymphedema to a stable level (no increase or decrease greater than 1 cm over the course of 1 week), patient to obtain appropriate and effective compression garments for breast and left UE, and demonstrate good understanding of all aspects of self-care for lymphedema LTG Duration 04/28/23 Assessment Summary Assessment Patient presents to PT with function-limiting lymphedema left UE and breast s/p partial mastectomy, chemotherapy and radiation treatments. Additionally she has significant bruising and palpable soft tissue nodules lateral left breast and subaxillary region with thickened tissue for which she will receive further testing 01/31/23. She has pea d-orange skin changes on her breast. No signs or symtpoms of cellulitis or fibrosis left UE . Feel she would benefit from PT for lymphedema care as noted above. POC was discussed with patient and she was in agreement. peau d'orange skin changes. The left upper outer and left side of the breast showed significant bruises with induration. There are some soft tissue nodules imbedded in that area. Physical Therapy Plan Frequency and Duration Frequency of Treatment 20 visits Duration of treatment (weeks) 12 Plan of Care Start Date 01/26/23 Plan of Care End Date 04/28/23 Therapeutic Interventions Therapeutic Interventions Lymphedema Management,Manual Therapy,Patient/Caregiver Education,Self-Care/Home Management,Taping,Therapeutic Exercises Next Visit Focus/Plan Next Note Type Treatment Note Next Visit Plan Perform MLD, apply compression banding, problem-solve compression for breast, perform sequential lymphedema exercises, continue patient education regarding self-care for lymphedema. Plan of Care Dates Plan of Care Start Date 01/26/23 Plan of Care End Date 04/28/23 Electronically Signed by: Loree Wilburn, PT 01/26/23 5927 If you are in agreement with this Plan of Care, please return a signed and dated copy. I have reviewed this Plan of Care and certify that the skilled therapy services above are required to meet the patient?s needs. Physician Signature Date Printed Name and Credentials Clinical Instructor Signature Printed Name and Credentials
--- NOTE | 2023-01-27 14:53 | PT.OTN ---
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) Lymphedema, not elsewhere classified (01/27/23) Physical Therapy Treatment Note PT-OP-A Visit Information Start: 01/25/23 16:40 Freq: Status: Active Protocol: Document 01/27/23 13:21 SAK (Rec: 01/27/23 14:26 [facility] [id number]) Out-Patient Physical Therapy Visit Information Visit Information Visit Type Treatment Note Visit Start Time 13:15 Visit Stop Time 14:39 Total Visit Minutes 84 Visit Number 2 Evaluation Information Evaluation Date 01/26/23 PT-OP-B Current Condition Start: 01/25/23 16:40 Freq: Status: Active Protocol: Document 01/27/23 13:21 SAK (Rec: 01/27/23 14:53 [facility] [id number]) Current Condition History of Current Condition Onset Date 1 month Current Complaints lymphedema left UE and breast History of Current Condition 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 Has had radiation and chemotherapy completed in 2021. Reports when getting her port flushed 1 month ago the nurse noticed swelling in her left UE, also identified in her left breast. Patient denies pain or other symptoms except reporting bruising left under arm area which is new and she is going to have an ultrasound and mammogram on 01/31/23. Reports some stiffness left UE with decreased ability to use for usual activities. Not currently doing any exercises; states was not given any to do after surgery. Prior Treatments and Tests chemotherapy radiation immunotherapy Future Testing and Treatments Planned Ultrasound and mammogram due to bruised area left axillary region. Treatment Goals Patient/Caregiver Goals Decrease swelling and return to full active use of her left UE. PT-OP-C Subjective Start: 01/25/23 16:40 Freq: Status: Active Protocol: Document 01/27/23 13:21 SAK (Rec: 01/27/23 14:53 [facility] [id number]) OP-PT Subjective Patient Comments Patient Comments Patient to PT with daughter and grandaughter for training in compression bandaging, lymphedema care. PT-OP-F Manual Assessment Start: 01/25/23 16:40 Freq: Status: Active Protocol: Document 01/26/23 10:30 SAK (Rec: 01/26/23 17:06 SAK [id number]) Manual Assessments Soft Tissue Assessment Soft Tissue Mobility Assessment peau d'orange skin changes left breast. Noted significant bruises with induration lateral left breast and subaxillary region with are palpable soft tissue nodules same region PT-OP-H Neuro Start: 01/25/23 16:40 Freq: Status: Active Protocol: Document 01/26/23 10:30 SAK (Rec: 01/26/23 17:06 SAK [id number]) Sensation Evaluation Gross Sensation Gross Sensation WNL PT-OP-J Posture/Palpation/Skin Start: 01/25/23 16:40 Freq: Status: Active Protocol: Document 01/26/23 10:30 SAK (Rec: 01/26/23 17:06 SAK [id number]) Posture Evaluation Position Sitting Head/C-Spine Posture Forward Head T-Spine Posture Increased Kyphosis Shoulder Posture (L) Rounded,(R) Rounded Arm Posture (L) Internally Rotated,(R) Internally Rotated Skin Assessment Edema Assessment left UE and breast Edema Appearance Discolored,Puffy Subjective Edema Description Tightness PT-OP-K Range of Motion Start: 01/25/23 16:40 Freq: Status: Active Protocol: Document 01/26/23 10:30 SAK (Rec: 01/26/23 17:06 SAK [id number]) Shoulder Goniometric Range of Motion Shoulder Left Active Shoulder ROM WFL No Flexion 135 Extension 25 Abduction 150 External Rotation at 0 degrees Abduction 45 Internal Rotation 40 Internal Rotation Behind Back (text) lateral hip Right Active Shoulder ROM WFL Yes Shoulder ROM Limitations Shoulder ROM Limitations Soft Tissue Tightness,Pain, Swelling Elbow/Forearm Range of Motion Elbow/Forearm kiesha Elbow/Forearm ROM WFL Yes PT-OP-N Lymphedema Start: 01/25/23 16:40 Freq: Status: Active Protocol: Document 01/26/23 10:30 SAK (Rec: 01/26/23 11:57 SAK [id number]) Lymphedema Measurements Upper Extremity Circumference Measurements Left Affected MCP 19.7 cm Dorsum of Hand 20.4 cm Wrist 19.9 cm 5 cm From Wrist Crease 24.2 cm 10 cm From Wrist Crease 27.8 cm 15 cm From Wrist Crease 30.6 cm 20 cm From Wrist Crease 31.9 cm 25 cm From Wrist Crease 31.2 cm 30 cm From Wrist Crease 36.4 cm 35 cm From Wrist Crease 38.2 cm 40 cm From Wrist Crease 38.5 cm 45 cm From Wrist Crease 36.8 cm Elbow Joint 31.2 cm Right Unaffected MCP 18.8 cm Dorsum of Hand 19 cm Wrist 17.8 cm 5 cm From Wrist Crease 20.6 cm 10 cm From Wrist Crease 23.2 cm 15 cm From Wrist Crease 25.8 cm 20 cm From Wrist Crease 27 cm 25 cm From Wrist Crease 27.9 cm 30 cm From Wrist Crease 30.7 cm 35 cm From Wrist Crease 32 cm 40 cm From Wrist Crease 32.4 cm 45 cm From Wrist Crease 32.6 cm Elbow Joint 27.6 cm Axilla 32.9 cm - pt left handed - nipple line 119 subaxillary 98.9 Comments Lymphedema Comments Applied size F Tubigrip to left UE for trial. Issued packet of lymphedema info and reviewed; lymphedema massage, exercise, bandaging, and online and local resources for the above as well as compression garments. chip bag and white channel foam issued for use in bra, and compression bra loaned for trial as well. PT-OP-Q Treatments Start: 01/25/23 16:40 Freq: Status: Active Protocol: Document 01/27/23 13:21 [facility] (Rec: 01/27/23 14:53 [facility] [id number]) Lymphedema Treatment Lymphedema Wrapping Body Location left UE, left breast Materials chip bag in bra, recommended sports bra or compression bra. Size F tricofix, 2 rolls elastamole to fingers, 2 rolls Artiflex, Comprilan (6,8,10) applied to left UE; education of daughter and grandaughter. Sequential Lymphedema Exercises Duration 5x ea Comments Sci-Fit x 5 min to facilitate lymphatic flow after bandaging Compression Garment Assessment Compression Garment Assessment Details discussed options with daughter, shown website Patient Education Lymphedema Pathology reviewed and instr daughter and grandaughter Lymphedema Prevention reviewed and instr daughter and grandaughter Lymphedema Precautions reviewed and instr daughter and grandaughter Compression Garments reviewed and instr daughter and grandaughter Self Manual Lymphatic Drainage reviewed and instr daughter and grandaughter Sequential Lymphedema Exercises reviewed and instr daughter and grandaughter PT-OP-T Assessment and Plan Start: 01/25/23 16:40 Freq: Status: Active Protocol: Document 01/27/23 13:21 [facility] (Rec: 01/27/23 14:26 [facility] [id number]) Physical Therapy Assessment Impairments Impairments Edema,ROM,Soft Tissue Mobility Goals Three Impairment lymphedema life impact scale Exercise Teacher Goal (LTG) decrease by at least 50% as measure of improved quality of life LTG Duration 04/28/23 Two Impairment decreased left UE ROM Short Term Goal (STG) Patient to be instructed in ROM exercises for left UE STG Duration 02/25/23 Snf Goal (LTG) Patient to demonstrate full active ROM left UE and be able to return to normal use of her left UE for all activities LTG Duration 04/28/23 One Impairment lymphedema left UE and breast Short Term Goal (STG) Patient to be instructed in all aspects of lymphedema care to include skin care, precautions, MLD, lymphedema exercises, compression STG Duration 02/25/23 Exercise Teacher Goal (LTG) Decrease lymphedema to a stable level (no increase or decrease greater than 1 cm over the course of 1 week), patient to obtain appropriate and effective compression garments for breast and left UE, and demonstrate good understanding of all aspects of self-care for lymphedema LTG Duration 04/28/23 Assessment Summary Assessment Patient to PT today with daughter and granddaughter for training in compression bandaging and other aspects of lymphedema care. They demonstrated good understanding though appeared daunted by the task of bandaging; encouraged to make use of written handout and online video for reference. REviewed lymphedema exercises and self-massage techniques, again with reference to handouts and videos for further review and practice. Patient wearing chip bag in bra with good tolerance. Patient to have further medical testing on Tuesday. Since scheduling difficult at this time recommended they contact PT via email with any further questions prior to next PT appointment. Physical Therapy Plan Frequency and Duration Frequency of Treatment 20 visits Duration of treatment (weeks) 12 Plan of Care Start Date 01/26/23 Plan of Care End Date 04/28/23 Therapeutic Interventions Therapeutic Interventions Lymphedema Management,Manual Therapy,Patient/Caregiver Education,Self-Care/Home Management,Taping,Therapeutic Exercises Next Visit Focus/Plan Next Note Type Treatment Note Next Visit Plan Discuss results of medical tests, any precautions or further recommendations for alteration in PT treatment. Continue lymphedema management .
--- NOTE | 2023-02-03 10:51 | PT.OTN ---
Current Diagnoses Malignant neoplasm of unspecified site of unspecified female breast (02/03/23) Secondary and unspecified malignant neoplasm of axilla and upper limb lymph nodes (02/03/23) Lymphedema, not elsewhere classified (02/03/23) Physical Therapy Treatment Note PT-OP-A Visit Information Start: 01/25/23 16:40 Freq: Status: Active Protocol: Document 02/03/23 07:55 SAK (Rec: 02/03/23 08:20 SAK [id number]) Out-Patient Physical Therapy Visit Information Visit Information Visit Type Treatment Note Visit Start Time 08:00 Visit Stop Time 09:30 Total Visit Minutes 90 Visit Number 3 Evaluation Information Evaluation Date 01/26/23 PT-OP-B Current Condition Start: 01/25/23 16:40 Freq: Status: Active Protocol: Document 02/03/23 07:55 SAK (Rec: 02/03/23 08:20 SAK [id number]) Current Condition History of Current Condition Onset Date 1 month Current Complaints lymphedema left UE and breast History of Current Condition 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 Has had radiation and chemotherapy completed in 2021. Reports when getting her port flushed 1 month ago the nurse noticed swelling in her left UE, also identified in her left breast. Patient denies pain or other symptoms except reporting bruising left under arm area which is new and she is going to have an ultrasound and mammogram on 01/31/23. Reports some stiffness left UE with decreased ability to use for usual activities. Not currently doing any exercises; states was not given any to do after surgery. Prior Treatments and Tests chemotherapy radiation immunotherapy Future Testing and Treatments Planned Ultrasound and mammogram due to bruised area left axillary region. Treatment Goals Patient/Caregiver Goals Decrease swelling and return to full active use of her left UE. PT-OP-C Subjective Start: 01/25/23 16:40 Freq: Status: Active Protocol: Document 02/03/23 07:55 SAK (Rec: 02/03/23 08:20 [facility] [id number]) OP-PT Subjective Patient Comments Patient Comments Sees Dr. Almazan in 2 weeks to discuss mammogram results. States daughter is anxious about not bandaging pt well. Patient denies pain with bandaging. Has been using small chip bag in her bra, ordered sports bra but wrong size, has reordered. Has been doing self massage and ther ex, skin care as instructed. PT-OP-F Manual Assessment Start: 01/25/23 16:40 Freq: Status: Active Protocol: Document 01/26/23 10:30 SAK (Rec: 01/26/23 17:06 SAK [id number]) Manual Assessments Soft Tissue Assessment Soft Tissue Mobility Assessment peau d'orange skin changes left breast. Noted significant bruises with induration lateral left breast and subaxillary region with are palpable soft tissue nodules same region PT-OP-H Neuro Start: 01/25/23 16:40 Freq: Status: Active Protocol: Document 01/26/23 10:30 SAK (Rec: 01/26/23 17:06 SAK [id number]) Sensation Evaluation Gross Sensation Gross Sensation WNL PT-OP-J Posture/Palpation/Skin Start: 01/25/23 16:40 Freq: Status: Active Protocol: Document 01/26/23 10:30 SAK (Rec: 01/26/23 17:06 SAK [id number]) Posture Evaluation Position Sitting Head/C-Spine Posture Forward Head T-Spine Posture Increased Kyphosis Shoulder Posture (L) Rounded,(R) Rounded Arm Posture (L) Internally Rotated,(R) Internally Rotated Skin Assessment Edema Assessment left UE and breast Edema Appearance Discolored,Puffy Subjective Edema Description Tightness PT-OP-K Range of Motion Start: 01/25/23 16:40 Freq: Status: Active Protocol: Document 01/26/23 10:30 SAK (Rec: 01/26/23 17:06 SAK [id number]) Shoulder Goniometric Range of Motion Shoulder Left Active Shoulder ROM WFL No Flexion 135 Extension 25 Abduction 150 External Rotation at 0 degrees Abduction 45 Internal Rotation 40 Internal Rotation Behind Back (text) lateral hip Right Active Shoulder ROM WFL Yes Shoulder ROM Limitations Shoulder ROM Limitations Soft Tissue Tightness,Pain, Swelling Elbow/Forearm Range of Motion Elbow/Forearm kiesha Elbow/Forearm ROM WFL Yes PT-OP-N Lymphedema Start: 01/25/23 16:40 Freq: Status: Active Protocol: Document 02/03/23 07:55 SAK (Rec: 02/03/23 08:20 SAK [id number]) Lymphedema Measurements Upper Extremity Circumference Measurements Left Affected MCP 19.5 cm Dorsum of Hand 19.9 cm Wrist 18.6 cm 5 cm From Wrist Crease 22.4 cm 10 cm From Wrist Crease 25 cm 15 cm From Wrist Crease 25.7 cm 20 cm From Wrist Crease 29.3 cm 25 cm From Wrist Crease 29.3 cm 30 cm From Wrist Crease 33.3 cm 35 cm From Wrist Crease 36 cm 40 cm From Wrist Crease 37.9 cm 45 cm From Wrist Crease 37.8 cm Elbow Joint 29.8 cm Right Unaffected - 114.5 98 PT-OP-Q Treatments Start: 01/25/23 16:40 Freq: Status: Active Protocol: Document 02/03/23 07:56 [facility] (Rec: 02/03/23 10:51 [facility] [id number]) Cardio Equipment Recumbent Stepper (Sci-Fit) Duration (Minutes) 5 Resistance 1 Seat Position 11 Other to facilitate lymphatic flow after bandaging Lymphedema Treatment Manual Lymphatic Drainage Location for left UE lymphedema Duration 30 Comments focus on AAA and AAF pathways Lymphedema Wrapping Body Location left UE, left breast Materials chip bag in bra (new keyhole shape) Size F tricofix, 2 rolls elastamole to fingers, 2 rolls Artiflex, Comprilan (6,8,10) applied to left UE Sequential Lymphedema Exercises Comments HEP; review next session Sci-Fit x 5 min to facilitate lymphatic flow after bandaging Patient Education Compression Garments further review, shown online, discussed sizing charts, given measurements Self Manual Lymphatic Drainage reviewed PT-OP-T Assessment and Plan Start: 01/25/23 16:40 Freq: Status: Active Protocol: Document 02/03/23 07:55 [facility] (Rec: 02/03/23 08:20 [facility] [id number]) Physical Therapy Assessment Goals Three Impairment lymphedema life impact scale [facility] Goal (LTG) decrease by at least 50% as measure of improved quality of life LTG Duration 04/28/23 Two Impairment decreased left UE ROM Short Term Goal (STG) Patient to be instructed in ROM exercises for left UE STG Duration 02/25/23 [employer] Deputy Director Goal (LTG) Patient to demonstrate full active ROM left UE and be able to return to normal use of her left UE for all activities LTG Duration 04/28/23 One Impairment lymphedema left UE and breast Short Term Goal (STG) Patient to be instructed in all aspects of lymphedema care to include skin care, precautions, MLD, lymphedema exercises, compression STG Duration 02/25/23 [employer] Deputy Director Goal (LTG) Decrease lymphedema to a stable level (no increase or decrease greater than 1 cm over the course of 1 week), patient to obtain appropriate and effective compression garments for breast and left UE, and demonstrate good understanding of all aspects of self-care for lymphedema LTG Duration 04/28/23 Assessment Summary Assessment Bandaging intact from family bandaging, could have more overlap on fingers, otherwise good technique noted. Good improvement in circumferential measurements, no redness or irritation from bandaging. Patient demonstrated good understanding of self-massage and ther ex. Has good potential for further improvements in left UE size. Compression not adequat for left breast, issued breast size chip bag and assisted patient in putting inside left breast with instructions in wearing schedule. Soft tissue softening noted with manual techniques with patient instructed in self massage. Discussed compression garment options, shown online. Physical Therapy Plan Frequency and Duration Frequency of Treatment 20 visits Duration of treatment (weeks) 12 Plan of Care Start Date 01/26/23 Plan of Care End Date 04/28/23 Therapeutic Interventions Therapeutic Interventions Lymphedema Management,Manual Therapy,Patient/Caregiver Education,Self-Care/Home Management,Taping,Therapeutic Exercises Next Visit Focus/Plan Next Note Type Treatment Note Next Visit Plan Continue lymphedema management .
--- NOTE | 2023-02-09 16:52 | PT.OTN ---
Current Diagnoses Malignant neoplasm of unspecified site of unspecified female breast (02/09/23) Secondary and unspecified malignant neoplasm of axilla and upper limb lymph nodes (02/09/23) Lymphedema, not elsewhere classified (02/09/23) Physical Therapy Treatment Note PT-OP-A Visit Information Start: 01/25/23 16:40 Freq: Status: Active Protocol: Document 02/09/23 15:50 SAK (Rec: 02/09/23 16:50 SAK [id number]) Out-Patient Physical Therapy Visit Information Visit Information Visit Type Treatment Note Visit Start Time 15:51 Visit Stop Time 16:50 Total Visit Minutes 59 Evaluation Information Evaluation Date 01/26/23 PT-OP-B Current Condition Start: 01/25/23 16:40 Freq: Status: Active Protocol: Document 02/09/23 15:50 SAK (Rec: 02/09/23 16:50 SAK [id number]) Current Condition History of Current Condition Onset Date 1 month Current Complaints lymphedema left UE and breast History of Current Condition 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 Has had radiation and chemotherapy completed in 2021. Reports when getting her port flushed 1 month ago the nurse noticed swelling in her left UE, also identified in her left breast. Patient denies pain or other symptoms except reporting bruising left under arm area which is new and she is going to have an ultrasound and mammogram on 01/31/23. Reports some stiffness left UE with decreased ability to use for usual activities. Not currently doing any exercises; states was not given any to do after surgery. Prior Treatments and Tests chemotherapy radiation immunotherapy Future Testing and Treatments Planned Ultrasound and mammogram due to bruised area left axillary region. Treatment Goals Patient/Caregiver Goals Decrease swelling and return to full active use of her left UE. PT-OP-C Subjective Start: 01/25/23 16:40 Freq: Status: Active Protocol: Document 02/09/23 15:50 SAK (Rec: 02/09/23 16:51 SAK [id number]) OP-PT Subjective Patient Comments Patient Comments To PT with daughter, wanting more review of bandaging technique, massage, exercise. Patient Reported Progress Improving PT-OP-F Manual Assessment Start: 01/25/23 16:40 Freq: Status: Active Protocol: Document 01/26/23 10:30 SAK (Rec: 01/26/23 17:06 SAK [id number]) Manual Assessments Soft Tissue Assessment Soft Tissue Mobility Assessment peau d'orange skin changes left breast. Noted significant bruises with induration lateral left breast and subaxillary region with are palpable soft tissue nodules same region PT-OP-H Neuro Start: 01/25/23 16:40 Freq: Status: Active Protocol: Document 01/26/23 10:30 SAK (Rec: 01/26/23 17:06 SAK [id number]) Sensation Evaluation Gross Sensation Gross Sensation WNL PT-OP-J Posture/Palpation/Skin Start: 01/25/23 16:40 Freq: Status: Active Protocol: Document 01/26/23 10:30 SAK (Rec: 01/26/23 17:06 SAK [id number]) Posture Evaluation Position Sitting Head/C-Spine Posture Forward Head T-Spine Posture Increased Kyphosis Shoulder Posture (L) Rounded,(R) Rounded Arm Posture (L) Internally Rotated,(R) Internally Rotated Skin Assessment Edema Assessment left UE and breast Edema Appearance Discolored,Puffy Subjective Edema Description Tightness PT-OP-K Range of Motion Start: 01/25/23 16:40 Freq: Status: Active Protocol: Document 01/26/23 10:30 SAK (Rec: 01/26/23 17:06 SAK [id number]) Shoulder Goniometric Range of Motion Shoulder Left Active Shoulder ROM WFL No Flexion 135 Extension 25 Abduction 150 External Rotation at 0 degrees Abduction 45 Internal Rotation 40 Internal Rotation Behind Back (text) lateral hip Right Active Shoulder ROM WFL Yes Shoulder ROM Limitations Shoulder ROM Limitations Soft Tissue Tightness,Pain, Swelling Elbow/Forearm Range of Motion Elbow/Forearm kiesha Elbow/Forearm ROM WFL Yes PT-OP-N Lymphedema Start: 01/25/23 16:40 Freq: Status: Active Protocol: Document 02/09/23 15:50 SAK (Rec: 02/09/23 16:50 SAK [id number]) Lymphedema Measurements Upper Extremity Circumference Measurements Left Affected MCP 19.5 cm Dorsum of Hand 19.7 cm Wrist 17.6 cm 5 cm From Wrist Crease 22.4 cm 10 cm From Wrist Crease 25 cm 15 cm From Wrist Crease 25.7 cm 20 cm From Wrist Crease 28.2 cm 25 cm From Wrist Crease 29.2 cm 30 cm From Wrist Crease 31.8 cm 35 cm From Wrist Crease 34.7 cm 40 cm From Wrist Crease 38 cm 45 cm From Wrist Crease 37.4 cm Elbow Joint 29.1 cm PT-OP-Q Treatments Start: 01/25/23 16:40 Freq: Status: Active Protocol: Document 02/09/23 15:50 SAK (Rec: 02/09/23 16:50 SAK [id number]) Cardio Equipment Recumbent Stepper (Sci-Fit) Duration (Minutes) 5 Resistance 1 Seat Position 11 Other to facilitate lymphatic flow after bandaging Lymphedema Treatment Manual Lymphatic Drainage Location for left UE lymphedema Duration 10 Comments focus on AAA and AAF pathways, review for self massage Lymphedema Wrapping Body Location left UE, left breast Materials Size F tricofix, 2 rolls elastamole to fingers, black foam forearm, 2.5 rolls Artiflex, Comprilan (6,8,10) applied to left UE Other Review technique with daughter Sequential Lymphedema Exercises Comments reviewed for left UE Compression Garment Assessment Compression Garment Assessment Details shown samples, discussed options Patient Education Self Manual Lymphatic Drainage reviewed with patient and daughter including deeper massage to fibrotic tis PT-OP-T Assessment and Plan Start: 01/25/23 16:40 Freq: Status: Active Protocol: Document 02/09/23 15:50 SAK (Rec: 02/09/23 16:50 [facility] [id number]) Physical Therapy Assessment Impairments Impairments Edema,ROM,Soft Tissue Mobility Goals Three Impairment lymphedema life impact scale Spanish Lecturer Goal (LTG) decrease by at least 50% as measure of improved quality of life LTG Duration 04/28/23 Two Impairment decreased left UE ROM Short Term Goal (STG) Patient to be instructed in ROM exercises for left UE STG Duration 02/25/23 Spanish Lecturer Goal (LTG) Patient to demonstrate full active ROM left UE and be able to return to normal use of her left UE for all activities LTG Duration 04/28/23 One Impairment lymphedema left UE and breast Short Term Goal (STG) Patient to be instructed in all aspects of lymphedema care to include skin care, precautions, MLD, lymphedema exercises, compression STG Duration 02/25/23 Fpc Goal (LTG) Decrease lymphedema to a stable level (no increase or decrease greater than 1 cm over the course of 1 week), patient to obtain appropriate and effective compression garments for breast and left UE, and demonstrate good understanding of all aspects of self-care for lymphedema LTG Duration 04/28/23 Assessment Summary Assessment Decreased circumferential measurements noted as above in hand, wrist, and upper arm. Forearm not changed encouraged continued bandaging, trial use of black foam as used today, increased massage forearm fibrotic tissue. Physical Therapy Plan Frequency and Duration Frequency of Treatment 20 visits Duration of treatment (weeks) 12 Plan of Care Start Date 01/26/23 Plan of Care End Date 04/28/23 Therapeutic Interventions Therapeutic Interventions Lymphedema Management,Manual Therapy,Patient/Caregiver Education,Self-Care/Home Management,Taping,Therapeutic Exercises Next Visit Focus/Plan Next Note Type Treatment Note Next Visit Plan Continue lymphedema management . Address breast lymphedema next session again, assess response to chip bag
--- NOTE | 2023-02-15 08:23 | PT.OTN ---
Current Diagnoses Malignant neoplasm of unspecified site of unspecified female breast (02/15/23) Secondary and unspecified malignant neoplasm of axilla and upper limb lymph nodes (02/15/23) Lymphedema, not elsewhere classified (02/15/23) Physical Therapy Treatment Note PT-OP-A Visit Information Start: 01/25/23 16:40 Freq: Status: Active Protocol: Document 02/15/23 15:47 SAK (Rec: 02/15/23 17:09 [facility] [id number]) Out-Patient Physical Therapy Visit Information Visit Information Visit Type Treatment Note Visit Start Time 15:45 Visit Stop Time 17:00 Total Visit Minutes 90 Visit Number 5 Evaluation Information Evaluation Date 01/26/23 PT-OP-B Current Condition Start: 01/25/23 16:40 Freq: Status: Active Protocol: Document 02/15/23 15:47 SAK (Rec: 02/15/23 17:09 [facility] [id number]) Current Condition History of Current Condition Onset Date 1 month Current Complaints lymphedema left UE and breast History of Current Condition 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 Has had radiation and chemotherapy completed in 2021. Reports when getting her port flushed 1 month ago the nurse noticed swelling in her left UE, also identified in her left breast. Patient denies pain or other symptoms except reporting bruising left under arm area which is new and she is going to have an ultrasound and mammogram on 01/31/23. Reports some stiffness left UE with decreased ability to use for usual activities. Not currently doing any exercises; states was not given any to do after surgery. Prior Treatments and Tests chemotherapy radiation immunotherapy Future Testing and Treatments Planned Ultrasound and mammogram due to bruised area left axillary region. Treatment Goals Patient/Caregiver Goals Decrease swelling and return to full active use of her left UE. PT-OP-C Subjective Start: 01/25/23 16:40 Freq: Status: Active Protocol: Document 02/15/23 15:47 SAK (Rec: 02/15/23 17:09 [facility] [id number]) OP-PT Subjective Patient Comments Patient Comments no new c/o, still feels UE getting smaller. Saw Dr. Almazan yesterday, has appointment for ultrasound for for lump in neck tomorrow and also having larygoscope tomorrow. Compliant to HEP, daughter continues to bandage her arm. Patient Reported Progress Improving PT-OP-F Manual Assessment Start: 01/25/23 16:40 Freq: Status: Active Protocol: Document 01/26/23 10:30 SAK (Rec: 01/26/23 17:06 SAK [id number]) Manual Assessments Soft Tissue Assessment Soft Tissue Mobility Assessment peau d'orange skin changes left breast. Noted significant bruises with induration lateral left breast and subaxillary region with are palpable soft tissue nodules same region PT-OP-H Neuro Start: 01/25/23 16:40 Freq: Status: Active Protocol: Document 01/26/23 10:30 SAK (Rec: 01/26/23 17:06 SAK [id number]) Sensation Evaluation Gross Sensation Gross Sensation WNL PT-OP-J Posture/Palpation/Skin Start: 01/25/23 16:40 Freq: Status: Active Protocol: Document 01/26/23 10:30 SAK (Rec: 01/26/23 17:06 [facility] [id number]) Posture Evaluation Position Sitting Head/C-Spine Posture Forward Head T-Spine Posture Increased Kyphosis Shoulder Posture (L) Rounded,(R) Rounded Arm Posture (L) Internally Rotated,(R) Internally Rotated Skin Assessment Edema Assessment left UE and breast Edema Appearance Discolored,Puffy Subjective Edema Description Tightness PT-OP-K Range of Motion Start: 01/25/23 16:40 Freq: Status: Active Protocol: Document 01/26/23 10:30 SAK (Rec: 01/26/23 17:06 SAK [id number]) Shoulder Goniometric Range of Motion Shoulder Left Active Shoulder ROM WFL No Flexion 135 Extension 25 Abduction 150 External Rotation at 0 degrees Abduction 45 Internal Rotation 40 Internal Rotation Behind Back (text) lateral hip Right Active Shoulder ROM WFL Yes Shoulder ROM Limitations Shoulder ROM Limitations Soft Tissue Tightness,Pain, Swelling Elbow/Forearm Range of Motion Elbow/Forearm kiesha Elbow/Forearm ROM WFL Yes PT-OP-N Lymphedema Start: 01/25/23 16:40 Freq: Status: Active Protocol: Document 02/15/23 15:47 SAK (Rec: 02/15/23 17:09 SAK [id number]) Lymphedema Measurements Upper Extremity Circumference Measurements Left Affected MCP 19.5 cm Dorsum of Hand 19.7 cm Wrist 17.9 cm 5 cm From Wrist Crease 22.5 cm 10 cm From Wrist Crease 25.2 cm 15 cm From Wrist Crease 25.7 cm 20 cm From Wrist Crease 28.2 cm 25 cm From Wrist Crease 28.7 cm 30 cm From Wrist Crease 31.2 cm 35 cm From Wrist Crease 33.9 cm 40 cm From Wrist Crease 27.8 cm 45 cm From Wrist Crease 38 cm Elbow Joint 28.4 cm PT-OP-Q Treatments Start: 01/25/23 16:40 Freq: Status: Active Protocol: Document 02/15/23 15:47 [facility] (Rec: 02/15/23 17:09 [facility] [id number]) Cardio Equipment Recumbent Stepper (Sci-Fit) Duration (Minutes) 5 Resistance 1 Seat Position 11 Other to facilitate lymphatic flow after bandaging Lymphedema Treatment Manual Lymphatic Drainage Location for left UE lymphedema Duration 10 Comments focus on AAA and AAF pathways, review for self massage Lymphedema Wrapping Body Location left UE, left breast Materials Size F tricofix, 2 rolls elastamole to fingers, black foam forearm, 2.5 rolls Artiflex, Comprilan (6,8,10) applied to left UE Other Review technique with daughter Sequential Lymphedema Exercises Comments reviewed for left UE Other Other circumferential measurements. PT-OP-R Modalities Start: 01/25/23 16:40 Freq: Status: Active Protocol: Document 02/15/23 15:47 [facility] (Rec: 02/16/23 08:23 [facility] [id number]) Compression Pump Treatment Treatment Location left UE Pressure Amount (mmHg) (mmHG) 35 Inflation Time (Seconds) 30 Deflation Time (Seconds) 10 Treatment Duration (minutes) 30 Treatment Tolerance Good PT-OP-T Assessment and Plan Start: 01/25/23 16:40 Freq: Status: Active Protocol: Document 02/15/23 15:47 [facility] (Rec: 02/15/23 17:09 [facility] [id number]) Physical Therapy Assessment Impairments Impairments Edema,ROM,Soft Tissue Mobility Goals Three Impairment lymphedema life impact scale Deputy City Clerk Goal (LTG) decrease by at least 50% as measure of improved quality of life LTG Duration 04/28/23 Two Impairment decreased left UE ROM Short Term Goal (STG) Patient to be instructed in ROM exercises for left UE STG Duration 02/25/23 Deputy City Clerk Goal (LTG) Patient to demonstrate full active ROM left UE and be able to return to normal use of her left UE for all activities LTG Duration 04/28/23 One Impairment lymphedema left UE and breast Short Term Goal (STG) Patient to be instructed in all aspects of lymphedema care to include skin care, precautions, MLD, lymphedema exercises, compression STG Duration 02/25/23 Deputy City Clerk Goal (LTG) Decrease lymphedema to a stable level (no increase or decrease greater than 1 cm over the course of 1 week), patient to obtain appropriate and effective compression garments for breast and left UE, and demonstrate good understanding of all aspects of self-care for lymphedema LTG Duration 04/28/23 Assessment Summary Assessment Circumferential measurements decreased in upper arm and elbow, no significant change lower arm this session. Patient and daughter/ grandaughter continue to bandage with good results, PT encouraged making sure bandaging as proximal as possible. Physical Therapy Plan Frequency and Duration Frequency of Treatment 20 visits Duration of treatment (weeks) 12 Plan of Care Start Date 01/26/23 Plan of Care End Date 04/28/23 Therapeutic Interventions Therapeutic Interventions Lymphedema Management,Manual Therapy,Patient/Caregiver Education,Self-Care/Home Management,Taping,Therapeutic Exercises Next Visit Focus/Plan Next Note Type Treatment Note Next Visit Plan Continue lymphedema management . Address breast lymphedema next session again, assess response to chip bag
--- NOTE | 2023-02-23 16:01 | PT.OTN ---
Current Diagnoses Malignant neoplasm of unspecified site of unspecified female breast (02/23/23) Secondary and unspecified malignant neoplasm of axilla and upper limb lymph nodes (02/23/23) Lymphedema, not elsewhere classified (02/23/23) Physical Therapy Treatment Note PT-OP-A Visit Information Start: 01/25/23 16:40 Freq: Status: Active Protocol: Document 02/23/23 14:12 SAK (Rec: 02/23/23 14:37 [facility] [id number]) Out-Patient Physical Therapy Visit Information Visit Information Visit Type Treatment Note Visit Start Time 14:13 Visit Stop Time 15:47 Total Visit Minutes 90 Visit Number 7 Evaluation Information Evaluation Date 01/26/23 PT-OP-B Current Condition Start: 01/25/23 16:40 Freq: Status: Active Protocol: Document 02/23/23 14:12 SAK (Rec: 02/17/23 13:31 [facility] [id number]) Current Condition History of Current Condition Onset Date 1 month Current Complaints lymphedema left UE and breast History of Current Condition 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 Has had radiation and chemotherapy completed in 2021. Reports when getting her port flushed 1 month ago the nurse noticed swelling in her left UE, also identified in her left breast. Patient denies pain or other symptoms except reporting bruising left under arm area which is new and she is going to have an ultrasound and mammogram on 01/31/23. Reports some stiffness left UE with decreased ability to use for usual activities. Not currently doing any exercises; states was not given any to do after surgery. Prior Treatments and Tests chemotherapy radiation immunotherapy Future Testing and Treatments Planned Ultrasound and mammogram due to bruised area left axillary region. Treatment Goals Patient/Caregiver Goals Decrease swelling and return to full active use of her left UE. PT-OP-C Subjective Start: 01/25/23 16:40 Freq: Status: Active Protocol: Document 02/23/23 14:12 SAK (Rec: 02/17/23 13:31 [facility] [id number]) OP-PT Subjective Patient Comments Patient Comments Bolero sleeve should come next week for bilateral UE compression vs wearing 2 individual sleeves as has been doing past few months (doesn' t stay high enough on arms), hasn't heard back from [facility] yet. Wearing jhon or bike shorts and knee high compression stockings for LE and trunk compression. Not sure she feels any reduction in any part of her body. Back pain continues to be an issue, seeing pain specialist Dr. Arroyo 03/01/23. Trying to wear back brace but not sure if helping. Patient Reported Progress Improving PT-OP-F Manual Assessment Start: 01/25/23 16:40 Freq: Status: Active Protocol: Document 01/26/23 10:30 SAK (Rec: 01/26/23 17:06 SAK [id number]) Manual Assessments Soft Tissue Assessment Soft Tissue Mobility Assessment peau d'orange skin changes left breast. Noted significant bruises with induration lateral left breast and subaxillary region with are palpable soft tissue nodules same region PT-OP-H Neuro Start: 01/25/23 16:40 Freq: Status: Active Protocol: Document 01/26/23 10:30 SAK (Rec: 01/26/23 17:06 SAK [id number]) Sensation Evaluation Gross Sensation Gross Sensation WNL PT-OP-J Posture/Palpation/Skin Start: 01/25/23 16:40 Freq: Status: Active Protocol: Document 01/26/23 10:30 SAK (Rec: 01/26/23 17:06 SAK [id number]) Posture Evaluation Position Sitting Head/C-Spine Posture Forward Head T-Spine Posture Increased Kyphosis Shoulder Posture (L) Rounded,(R) Rounded Arm Posture (L) Internally Rotated,(R) Internally Rotated Skin Assessment Edema Assessment left UE and breast Edema Appearance Discolored,Puffy Subjective Edema Description Tightness PT-OP-K Range of Motion Start: 01/25/23 16:40 Freq: Status: Active Protocol: Document 01/26/23 10:30 SAK (Rec: 01/26/23 17:06 SAK [id number]) Shoulder Goniometric Range of Motion Shoulder Left Active Shoulder ROM WFL No Flexion 135 Extension 25 Abduction 150 External Rotation at 0 degrees Abduction 45 Internal Rotation 40 Internal Rotation Behind Back (text) lateral hip Right Active Shoulder ROM WFL Yes Shoulder ROM Limitations Shoulder ROM Limitations Soft Tissue Tightness,Pain, Swelling Elbow/Forearm Range of Motion Elbow/Forearm kiesha Elbow/Forearm ROM WFL Yes PT-OP-N Lymphedema Start: 01/25/23 16:40 Freq: Status: Active Protocol: Document 02/23/23 14:12 [facility] (Rec: 02/23/23 14:37 [facility] [id number]) Lymphedema Measurements Upper Extremity Circumference Measurements Left Affected MCP 19.8 cm Dorsum of Hand 19.3 cm Wrist 17.9 cm 5 cm From Wrist Crease 21.7 cm 10 cm From Wrist Crease 24.6 cm 15 cm From Wrist Crease 26.5 cm 20 cm From Wrist Crease 27.7 cm 25 cm From Wrist Crease 28.7 cm 30 cm From Wrist Crease 31.2 cm 35 cm From Wrist Crease 33.5 cm 40 cm From Wrist Crease 36 cm 45 cm From Wrist Crease 36.2 cm Elbow Joint 29.3 cm PT-OP-Q Treatments Start: 01/25/23 16:40 Freq: Status: Active Protocol: Document 02/23/23 14:12 [facility] (Rec: 02/23/23 16:00 [facility] [id number]) Cardio Equipment Recumbent Stepper (Sci-Fit) Duration (Minutes) 5 Resistance 1 Seat Position 11 Other to facilitate lymphatic flow after bandaging Self-Care/Home Management Treatment Education Other Education given size chart for [employer] Strong arm sleeve and lite glove: fits in size 9 for sleeve and 4 for gauntlet/ glove though advised not to order yet as contue to see reduction in her left UE Lymphedema Treatment Manual Lymphatic Drainage Location for left UE lymphedema, left breast including massage of fibrotic areas Duration 30 Comments focus on AAA and AAF pathways, Lymphedema Wrapping Body Location left UE, left breast Materials Size F tricofix, 2 rolls elastamole to fingers, black foam forearm, 2.5 rolls Artiflex, Comprilan (6,8,10) applied to left UE Sequential Lymphedema Exercises Comments reviewed need to do exercises while wearing compression Other Other circumferential measurements. PT-OP-R Modalities Start: 01/25/23 16:40 Freq: Status: Active Protocol: Document 02/23/23 14:12 [facility] (Rec: 02/23/23 16:00 [facility] [id number]) Compression Pump Treatment Treatment Location left UE Pressure Amount (mmHg) (mmHG) 35 Inflation Time (Seconds) 30 Deflation Time (Seconds) 10 Treatment Duration (minutes) 30 Treatment Tolerance Good PT-OP-T Assessment and Plan Start: 01/25/23 16:40 Freq: Status: Active Protocol: Document 02/23/23 14:12 [email or web address] (Rec: 02/17/23 13:31 [facility] [id number]) Physical Therapy Assessment Impairments Impairments Edema,ROM,Soft Tissue Mobility Goals Three Impairment lymphedema life impact scale Custodial Goal (LTG) decrease by at least 50% as measure of improved quality of life LTG Duration 04/28/23 Two Impairment decreased left UE ROM Short Term Goal (STG) Patient to be instructed in ROM exercises for left UE STG Duration 02/25/23 Custodial Goal (LTG) Patient to demonstrate full active ROM left UE and be able to return to normal use of her left UE for all activities LTG Duration 04/28/23 One Impairment lymphedema left UE and breast Short Term Goal (STG) Patient to be instructed in all aspects of lymphedema care to include skin care, precautions, MLD, lymphedema exercises, compression STG Duration 02/25/23 Piper Installer Goal (LTG) Decrease lymphedema to a stable level (no increase or decrease greater than 1 cm over the course of 1 week), patient to obtain appropriate and effective compression garments for breast and left UE, and demonstrate good understanding of all aspects of self-care for lymphedema LTG Duration 04/28/23
--- NOTE | 2023-02-28 09:29 | PT.OTN ---
Current Diagnoses Malignant neoplasm of unspecified site of unspecified female breast (02/28/23) Secondary and unspecified malignant neoplasm of axilla and upper limb lymph nodes (02/28/23) Lymphedema, not elsewhere classified (02/28/23) Physical Therapy Treatment Note PT-OP-A Visit Information Start: 01/25/23 16:40 Freq: Status: Active Protocol: Document 02/28/23 08:00 SAK (Rec: 02/28/23 08:23 SAK [id number]) Out-Patient Physical Therapy Visit Information Visit Information Visit Type Treatment Note Visit Start Time 08:01 Visit Stop Time 08:23 Total Visit Minutes 83 Visit Number 8 Evaluation Information Evaluation Date 01/26/23 PT-OP-B Current Condition Start: 01/25/23 16:40 Freq: Status: Active Protocol: Document 02/28/23 08:00 SAK (Rec: 02/28/23 08:23 SAK [id number]) Current Condition History of Current Condition Onset Date 1 month Current Complaints lymphedema left UE and breast History of Current Condition 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 Has had radiation and chemotherapy completed in 2021. Reports when getting her port flushed 1 month ago the nurse noticed swelling in her left UE, also identified in her left breast. Patient denies pain or other symptoms except reporting bruising left under arm area which is new and she is going to have an ultrasound and mammogram on 01/31/23. Reports some stiffness left UE with decreased ability to use for usual activities. Not currently doing any exercises; states was not given any to do after surgery. Prior Treatments and Tests chemotherapy radiation immunotherapy Future Testing and Treatments Planned Ultrasound and mammogram due to bruised area left axillary region. PT-OP-C Subjective Start: 01/25/23 16:40 Freq: Status: Active Protocol: Document 02/23/23 14:12 SAK (Rec: 02/17/23 13:31 SAK [id number]) OP-PT Subjective Patient Comments Patient Comments Bolero sleeve should come next week for bilateral UE compression vs wearing 2 individual sleeves as has been doing past few months (doesn' t stay high enough on arms), hasn't heard back from [facility] yet. Wearing jhon or bike shorts and knee high compression stockings for LE and trunk compression. Not sure she feels any reduction in any part of her body. Back pain continues to be an issue, seeing pain specialist Dr. Arroyo 03/01/23. Trying to wear back brace but not sure if helping. Patient Reported Progress Improving PT-OP-F Manual Assessment Start: 01/25/23 16:40 Freq: Status: Active Protocol: Document 01/26/23 10:30 SAK (Rec: 01/26/23 17:06 SAK [id number]) Manual Assessments Soft Tissue Assessment Soft Tissue Mobility Assessment peau d'orange skin changes left breast. Noted significant bruises with induration lateral left breast and subaxillary region with are palpable soft tissue nodules same region PT-OP-H Neuro Start: 01/25/23 16:40 Freq: Status: Active Protocol: Document 01/26/23 10:30 SAK (Rec: 01/26/23 17:06 SAK [id number]) Sensation Evaluation Gross Sensation Gross Sensation WNL PT-OP-J Posture/Palpation/Skin Start: 01/25/23 16:40 Freq: Status: Active Protocol: Document 01/26/23 10:30 SAK (Rec: 01/26/23 17:06 SAK [id number]) Posture Evaluation Position Sitting Head/C-Spine Posture Forward Head T-Spine Posture Increased Kyphosis Shoulder Posture (L) Rounded,(R) Rounded Arm Posture (L) Internally Rotated,(R) Internally Rotated Skin Assessment Edema Assessment left UE and breast Edema Appearance Discolored,Puffy Subjective Edema Description Tightness PT-OP-K Range of Motion Start: 01/25/23 16:40 Freq: Status: Active Protocol: Document 01/26/23 10:30 SAK (Rec: 01/26/23 17:06 SAK [id number]) Shoulder Goniometric Range of Motion Shoulder Left Active Shoulder ROM WFL No Flexion 135 Extension 25 Abduction 150 External Rotation at 0 degrees Abduction 45 Internal Rotation 40 Internal Rotation Behind Back (text) lateral hip Right Active Shoulder ROM WFL Yes Shoulder ROM Limitations Shoulder ROM Limitations Soft Tissue Tightness,Pain, Swelling Elbow/Forearm Range of Motion Elbow/Forearm kiesha Elbow/Forearm ROM WFL Yes PT-OP-N Lymphedema Start: 01/25/23 16:40 Freq: Status: Active Protocol: Document 02/28/23 08:00 SAK (Rec: 02/28/23 08:23 [facility] [id number]) Lymphedema Measurements Upper Extremity Circumference Measurements Left Affected MCP 19.4 cm Dorsum of Hand 19.2 cm Wrist 18.3 cm 5 cm From Wrist Crease 22.2 cm 10 cm From Wrist Crease 24.5 cm 15 cm From Wrist Crease 26.9 cm 20 cm From Wrist Crease 28.2 cm 25 cm From Wrist Crease 28 cm 30 cm From Wrist Crease 30.8 cm 35 cm From Wrist Crease 34.2 cm 40 cm From Wrist Crease 35.2 cm 45 cm From Wrist Crease 35.4 cm Elbow Joint 29.1 cm - subaxillary 97.3 nipple line 113 PT-OP-Q Treatments Start: 01/25/23 16:40 Freq: Status: Active Protocol: Document 02/28/23 08:00 [facility] (Rec: 02/28/23 08:23 [facility] [id number]) Cardio Equipment Recumbent Stepper (Sci-Fit) Duration (Minutes) 5 Resistance 1 Seat Position 11 Other to facilitate lymphatic flow after bandaging Self-Care/Home Management Treatment Education Other Education instructed ok to order sleeve and gauntlet now, no inc or dec greater than 1 cm Lymphedema Treatment Manual Lymphatic Drainage Location for left UE lymphedema, left breast including massage of fibrotic areas Duration 45 Comments focus on AAA and AAF pathways, manual treatment to fibrotic tissue in breast Lymphedema Wrapping Body Location left UE, left breast Materials Size F tricofix, 2 rolls elastamole to fingers, black foam forearm, 2.5 rolls Artiflex, Comprilan (6,8,10) applied to left UE Other Other circumferential measurements. PT-OP-R Modalities Start: 01/25/23 16:40 Freq: Status: Active Protocol: Document 02/28/23 08:00 [facility] (Rec: 02/28/23 08:23 [facility] [id number]) Compression Pump Treatment Treatment Location left UE Pressure Amount (mmHg) (mmHG) 35 Inflation Time (Seconds) 30 Deflation Time (Seconds) 10 Treatment Duration (minutes) 30 Treatment Tolerance Good PT-OP-T Assessment and Plan Start: 01/25/23 16:40 Freq: Status: Active Protocol: Document 02/28/23 08:00 [facility] (Rec: 02/28/23 08:23 [facility] [id number]) Physical Therapy Assessment Impairments Impairments Edema,ROM,Soft Tissue Mobility Goals Three Impairment lymphedema life impact scale Prison Goal (LTG) decrease by at least 50% as measure of improved quality of life LTG Duration 04/28/23 Two Impairment decreased left UE ROM Short Term Goal (STG) Patient to be instructed in ROM exercises for left UE STG Duration 02/25/23 Floral Arranger Goal (LTG) Patient to demonstrate full active ROM left UE and be able to return to normal use of her left UE for all activities LTG Duration 04/28/23 One Impairment lymphedema left UE and breast Short Term Goal (STG) Patient to be instructed in all aspects of lymphedema care to include skin care, precautions, MLD, lymphedema exercises, compression STG Duration 02/25/23 Floral Arranger Goal (LTG) Decrease lymphedema to a stable level (no increase or decrease greater than 1 cm over the course of 1 week), patient to obtain appropriate and effective compression garments for breast and left UE, and demonstrate good understanding of all aspects of self-care for lymphedema LTG Duration 04/28/23 Assessment Summary Assessment Overall family doing excellent job with bandging, hand decreased, forearm and upper arm dec ( less than 1 cm), distal forearm and wrist inc ( less than 1 cm); patient advised to order compression sleeve and gauntlet. Patient wearing chip bag in bra today, noted improved tissue texture , further dec fibrosis with manual treatment; reviewed importance of self-massage. Physical Therapy Plan Frequency and Duration Frequency of Treatment 20 visits Duration of treatment (weeks) 12 Plan of Care Start Date 01/26/23 Plan of Care End Date 04/28/23 Therapeutic Interventions Therapeutic Interventions Lymphedema Management,Manual Therapy,Patient/Caregiver Education,Self-Care/Home Management,Taping,Therapeutic Exercises Next Visit Focus/Plan Next Note Type Treatment Note Next Visit Plan Continue lymphedema management . Address breast lymphedema next session again, assess response to chip bag
--- NOTE | 2023-03-01 14:47 | PT.OTN ---
Current Diagnoses Malignant neoplasm of unspecified site of unspecified female breast (03/01/23) Secondary and unspecified malignant neoplasm of axilla and upper limb lymph nodes (03/01/23) Lymphedema, not elsewhere classified (03/01/23) Physical Therapy Treatment Note PT-OP-A Visit Information Start: 01/25/23 16:40 Freq: Status: Active Protocol: Document 03/01/23 13:32 SAK (Rec: 03/01/23 13:44 [facility] [id number]) Out-Patient Physical Therapy Visit Information Visit Information Visit Type Treatment Note Visit Start Time 13:32 Visit Stop Time 14:44 Total Visit Minutes 87 Visit Number 9 Evaluation Information Evaluation Date 01/26/23 PT-OP-B Current Condition Start: 01/25/23 16:40 Freq: Status: Active Protocol: Document 03/01/23 13:32 SAK (Rec: 03/01/23 13:44 [facility] [id number]) Current Condition History of Current Condition Onset Date 1 month Current Complaints lymphedema left UE and breast History of Current Condition 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 Has had radiation and chemotherapy completed in 2021. Reports when getting her port flushed 1 month ago the nurse noticed swelling in her left UE, also identified in her left breast. Patient denies pain or other symptoms except reporting bruising left under arm area which is new and she is going to have an ultrasound and mammogram on 01/31/23. Reports some stiffness left UE with decreased ability to use for usual activities. Not currently doing any exercises; states was not given any to do after surgery. Prior Treatments and Tests chemotherapy radiation immunotherapy Future Testing and Treatments Planned Ultrasound and mammogram due to bruised area left axillary region. Treatment Goals Patient/Caregiver Goals Decrease swelling and return to full active use of her left UE. PT-OP-C Subjective Start: 01/25/23 16:40 Freq: Status: Active Protocol: Document 02/23/23 14:12 SAK (Rec: 02/17/23 13:31 SAK [id number]) OP-PT Subjective Patient Comments Patient Comments Bolero sleeve should come next week for bilateral UE compression vs wearing 2 individual sleeves as has been doing past few months (doesn' t stay high enough on arms), hasn't heard back from [facility] yet. Wearing jhon or bike shorts and knee high compression stockings for LE and trunk compression. Not sure she feels any reduction in any part of her body. Back pain continues to be an issue, seeing pain specialist Dr. Arroyo 03/01/23. Trying to wear back brace but not sure if helping. Patient Reported Progress Improving PT-OP-F Manual Assessment Start: 01/25/23 16:40 Freq: Status: Active Protocol: Document 01/26/23 10:30 SAK (Rec: 01/26/23 17:06 SAK [id number]) Manual Assessments Soft Tissue Assessment Soft Tissue Mobility Assessment peau d'orange skin changes left breast. Noted significant bruises with induration lateral left breast and subaxillary region with are palpable soft tissue nodules same region PT-OP-H Neuro Start: 01/25/23 16:40 Freq: Status: Active Protocol: Document 01/26/23 10:30 SAK (Rec: 01/26/23 17:06 SAK [id number]) Sensation Evaluation Gross Sensation Gross Sensation WNL PT-OP-J Posture/Palpation/Skin Start: 01/25/23 16:40 Freq: Status: Active Protocol: Document 01/26/23 10:30 SAK (Rec: 01/26/23 17:06 SAK [id number]) Posture Evaluation Position Sitting Head/C-Spine Posture Forward Head T-Spine Posture Increased Kyphosis Shoulder Posture (L) Rounded,(R) Rounded Arm Posture (L) Internally Rotated,(R) Internally Rotated Skin Assessment Edema Assessment left UE and breast Edema Appearance Discolored,Puffy Subjective Edema Description Tightness PT-OP-K Range of Motion Start: 01/25/23 16:40 Freq: Status: Active Protocol: Document 01/26/23 10:30 SAK (Rec: 01/26/23 17:06 SAK [id number]) Shoulder Goniometric Range of Motion Shoulder Left Active Shoulder ROM WFL No Flexion 135 Extension 25 Abduction 150 External Rotation at 0 degrees Abduction 45 Internal Rotation 40 Internal Rotation Behind Back (text) lateral hip Right Active Shoulder ROM WFL Yes Shoulder ROM Limitations Shoulder ROM Limitations Soft Tissue Tightness,Pain, Swelling Elbow/Forearm Range of Motion Elbow/Forearm kiesha Elbow/Forearm ROM WFL Yes PT-OP-N Lymphedema Start: 01/25/23 16:40 Freq: Status: Active Protocol: Document 03/01/23 13:32 [facility] (Rec: 03/01/23 13:44 [facility] [id number]) Lymphedema Measurements Upper Extremity Circumference Measurements Left Affected Wrist 17.5 cm 5 cm From Wrist Crease 21.7 cm 10 cm From Wrist Crease 25.2 cm 15 cm From Wrist Crease 26.9 cm 20 cm From Wrist Crease 27.2 cm 25 cm From Wrist Crease 27.8 cm 30 cm From Wrist Crease 30.1 cm 35 cm From Wrist Crease 34.1 cm 40 cm From Wrist Crease 34.8 cm 45 cm From Wrist Crease 34.4 cm Elbow Joint 27.1 cm PT-OP-Q Treatments Start: 01/25/23 16:40 Freq: Status: Active Protocol: Document 03/01/23 13:32 [facility] (Rec: 03/01/23 13:44 [facility] [id number]) Cardio Equipment Recumbent Stepper (Sci-Fit) Duration (Minutes) 5 Resistance 1 Seat Position 11 Other to facilitate lymphatic flow after bandaging Self-Care/Home Management Treatment Education Other Education instruction in donning of compression sleeve without and without donning aid Lymphedema Treatment Manual Lymphatic Drainage Location for left UE lymphedema, left breast including massage of fibrotic areas Duration 45 Comments focus on AAA and AAF pathways, manual treatment to fibrotic tissue in breast and forearm Lymphedema Wrapping Body Location left UE, left breast Materials Size F tricofix, 2 rolls elastamole to fingers, black foam forearm, 2.5 rolls Artiflex, Comprilan (6,8,10) applied to left UE Other Other instruction in correct donning of compression sleeve without and with donning aid PT-OP-R Modalities Start: 01/25/23 16:40 Freq: Status: Active Protocol: Document 02/28/23 08:00 [facility] (Rec: 02/28/23 08:23 [facility] [id number]) Compression Pump Treatment Treatment Location left UE Pressure Amount (mmHg) (mmHG) 35 Inflation Time (Seconds) 30 Deflation Time (Seconds) 10 Treatment Duration (minutes) 30 Treatment Tolerance Good PT-OP-T Assessment and Plan Start: 01/25/23 16:40 Freq: Status: Active Protocol: Document 03/01/23 13:32 [facility] (Rec: 03/01/23 13:44 [facility] [id number]) Physical Therapy Assessment Impairments Impairments Edema,ROM,Soft Tissue Mobility Goals Three Impairment lymphedema life impact scale Residential Goal (LTG) decrease by at least 50% as measure of improved quality of life LTG Duration 04/28/23 Two Impairment decreased left UE ROM Short Term Goal (STG) Patient to be instructed in ROM exercises for left UE STG Duration 02/25/23 Residential Goal (LTG) Patient to demonstrate full active ROM left UE and be able to return to normal use of her left UE for all activities LTG Duration 04/28/23 One Impairment lymphedema left UE and breast Short Term Goal (STG) Patient to be instructed in all aspects of lymphedema care to include skin care, precautions, MLD, lymphedema exercises, compression STG Duration 02/25/23 Residential Goal (LTG) Decrease lymphedema to a stable level (no increase or decrease greater than 1 cm over the course of 1 week), patient to obtain appropriate and effective compression garments for breast and left UE, and demonstrate good understanding of all aspects of self-care for lymphedema LTG Duration 04/28/23 Assessment Summary Assessment Further mild reductions most of left UE, decreased fibrosis left breast with manual techniques and use of chip bag with decreased area of firm tissue. Decreased wrist edema after pulling black foam more distal on forearm. Physical Therapy Plan Frequency and Duration Frequency of Treatment 20 visits Duration of treatment (weeks) 12 Plan of Care Start Date 01/26/23 Plan of Care End Date 04/28/23 Therapeutic Interventions Therapeutic Interventions Lymphedema Management,Manual Therapy,Patient/Caregiver Education,Self-Care/Home Management,Taping,Therapeutic Exercises Next Visit Focus/Plan Next Note Type Treatment Note Next Visit Plan Continue lymphedema management while patient awaits delivery of compression sleeve and gauntlet.
--- NOTE | 2023-03-02 09:46 | PT.OTN ---
Current Diagnoses Malignant neoplasm of unspecified site of unspecified female breast (03/02/23) Secondary and unspecified malignant neoplasm of axilla and upper limb lymph nodes (03/02/23) Lymphedema, not elsewhere classified (03/02/23) Physical Therapy Treatment Note PT-OP-A Visit Information Start: 01/25/23 16:40 Freq: Status: Active Protocol: Document 03/02/23 08:49 SAK (Rec: 03/02/23 09:02 SAK [id number]) Out-Patient Physical Therapy Visit Information Visit Information Visit Type Treatment Note Visit Start Time 08:48 Visit Stop Time 10:13 Total Visit Minutes 85 Visit Number 10 Evaluation Information Evaluation Date 01/26/23 PT-OP-B Current Condition Start: 01/25/23 16:40 Freq: Status: Active Protocol: Document 03/02/23 08:49 SAK (Rec: 03/02/23 09:02 SAK [id number]) Current Condition History of Current Condition Onset Date 1 month Current Complaints lymphedema left UE and breast History of Current Condition 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 Has had radiation and chemotherapy completed in 2021. Reports when getting her port flushed 1 month ago the nurse noticed swelling in her left UE, also identified in her left breast. Patient denies pain or other symptoms except reporting bruising left under arm area which is new and she is going to have an ultrasound and mammogram on 01/31/23. Reports some stiffness left UE with decreased ability to use for usual activities. Not currently doing any exercises; states was not given any to do after surgery. Prior Treatments and Tests chemotherapy radiation immunotherapy Future Testing and Treatments Planned Ultrasound and mammogram due to bruised area left axillary region. PT-OP-C Subjective Start: 01/25/23 16:40 Freq: Status: Active Protocol: Document 02/23/23 14:12 SAK (Rec: 02/17/23 13:31 SAK [id number]) OP-PT Subjective Patient Comments Patient Comments Bolero sleeve should come next week for bilateral UE compression vs wearing 2 individual sleeves as has been doing past few months (doesn' t stay high enough on arms), hasn't heard back from [facility] yet. Wearing jhon or bike shorts and knee high compression stockings for LE and trunk compression. Not sure she feels any reduction in any part of her body. Back pain continues to be an issue, seeing pain specialist Dr. Arroyo 03/01/23. Trying to wear back brace but not sure if helping. Patient Reported Progress Improving PT-OP-F Manual Assessment Start: 01/25/23 16:40 Freq: Status: Active Protocol: Document 01/26/23 10:30 SAK (Rec: 01/26/23 17:06 SAK [id number]) Manual Assessments Soft Tissue Assessment Soft Tissue Mobility Assessment peau d'orange skin changes left breast. Noted significant bruises with induration lateral left breast and subaxillary region with are palpable soft tissue nodules same region PT-OP-H Neuro Start: 01/25/23 16:40 Freq: Status: Active Protocol: Document 01/26/23 10:30 SAK (Rec: 01/26/23 17:06 SAK [id number]) Sensation Evaluation Gross Sensation Gross Sensation WNL PT-OP-J Posture/Palpation/Skin Start: 01/25/23 16:40 Freq: Status: Active Protocol: Document 01/26/23 10:30 SAK (Rec: 01/26/23 17:06 SAK [id number]) Posture Evaluation Position Sitting Head/C-Spine Posture Forward Head T-Spine Posture Increased Kyphosis Shoulder Posture (L) Rounded,(R) Rounded Arm Posture (L) Internally Rotated,(R) Internally Rotated Skin Assessment Edema Assessment left UE and breast Edema Appearance Discolored,Puffy Subjective Edema Description Tightness PT-OP-K Range of Motion Start: 01/25/23 16:40 Freq: Status: Active Protocol: Document 01/26/23 10:30 SAK (Rec: 01/26/23 17:06 SAK [id number]) Shoulder Goniometric Range of Motion Shoulder Left Active Shoulder ROM WFL No Flexion 135 Extension 25 Abduction 150 External Rotation at 0 degrees Abduction 45 Internal Rotation 40 Internal Rotation Behind Back (text) lateral hip Right Active Shoulder ROM WFL Yes Shoulder ROM Limitations Shoulder ROM Limitations Soft Tissue Tightness,Pain, Swelling Elbow/Forearm Range of Motion Elbow/Forearm kiesha Elbow/Forearm ROM WFL Yes PT-OP-N Lymphedema Start: 01/25/23 16:40 Freq: Status: Active Protocol: Document 03/02/23 08:49 SAK (Rec: 03/02/23 09:02 [facility] [id number]) Lymphedema Measurements Upper Extremity Circumference Measurements Left Affected - 96.8 113.9 PT-OP-Q Treatments Start: 01/25/23 16:40 Freq: Status: Active Protocol: Document 03/02/23 08:49 [facility] (Rec: 03/02/23 09:02 [facility] [id number]) Cardio Equipment Recumbent Stepper (Sci-Fit) Duration (Minutes) 5 Resistance 1 Seat Position 11 Other to facilitate lymphatic flow after bandaging Lymphedema Treatment Manual Lymphatic Drainage Location for left UE lymphedema, left breast including massage of fibrotic areas Duration 45 Comments focus on AAA and AAF pathways, manual treatment to fibrotic tissue in breast and forearm Lymphedema Wrapping Body Location left UE, left breast Materials Size F tricofix, 2 rolls elastamole to fingers, black foam forearm, 2.5 rolls Artiflex, Comprilan (6,8,10) applied to left UE PT-OP-R Modalities Start: 01/25/23 16:40 Freq: Status: Active Protocol: Document 02/28/23 08:00 [facility] (Rec: 02/28/23 08:23 [facility] [id number]) Compression Pump Treatment Treatment Location left UE Pressure Amount (mmHg) (mmHG) 35 Inflation Time (Seconds) 30 Deflation Time (Seconds) 10 Treatment Duration (minutes) 30 Treatment Tolerance Good PT-OP-T Assessment and Plan Start: 01/25/23 16:40 Freq: Status: Active Protocol: Document 03/02/23 08:49 [facility] (Rec: 03/02/23 09:02 [facility] [id number]) Physical Therapy Assessment Impairments Impairments Edema,ROM,Soft Tissue Mobility Goals Three Impairment lymphedema life impact scale Digital Performance Analyst Goal (LTG) decrease by at least 50% as measure of improved quality of life LTG Duration 04/28/23 Two Impairment decreased left UE ROM Short Term Goal (STG) Patient to be instructed in ROM exercises for left UE STG Duration 02/25/23 Digital Performance Analyst Goal (LTG) Patient to demonstrate full active ROM left UE and be able to return to normal use of her left UE for all activities LTG Duration 04/28/23 One Impairment lymphedema left UE and breast Short Term Goal (STG) Patient to be instructed in all aspects of lymphedema care to include skin care, precautions, MLD, lymphedema exercises, compression STG Duration 02/25/23 Alf Goal (LTG) Decrease lymphedema to a stable level (no increase or decrease greater than 1 cm over the course of 1 week), patient to obtain appropriate and effective compression garments for breast and left UE, and demonstrate good understanding of all aspects of self-care for lymphedema LTG Duration 04/28/23 Assessment Summary Assessment Patient continues to benefit from lymphedema management with decreased fibrosis in tissues of breast and forearm with manual treatment, lymphedema bandaging, use of chip bag in bra, self massage. Physical Therapy Plan Frequency and Duration Frequency of Treatment 20 visits Duration of treatment (weeks) 12 Plan of Care Start Date 01/26/23 Plan of Care End Date 04/28/23 Therapeutic Interventions Therapeutic Interventions Lymphedema Management,Manual Therapy,Patient/Caregiver Education,Self-Care/Home Management,Taping,Therapeutic Exercises Next Visit Focus/Plan Next Note Type Treatment Note Next Visit Plan Continue lymphedema management while patient awaits delivery of compression sleeve and gauntlet. Circumferential measurements.
--- NOTE | 2023-03-02 16:00 | PT.OPPN ---
Current Diagnoses Malignant neoplasm of unspecified site of unspecified female breast (03/03/23) Secondary and unspecified malignant neoplasm of axilla and upper limb lymph nodes (03/03/23) Lymphedema, not elsewhere classified (03/03/23) Physical Therapy Progress Note PT-OP-A Visit Information Start: 01/25/23 16:40 Freq: Status: Active Protocol: Document 03/02/23 08:49 SAK (Rec: 03/02/23 09:02 SAK [id number]) Out-Patient Physical Therapy Visit Information Visit Information Visit Type Treatment Note Visit Start Time 08:48 Visit Stop Time 10:13 Total Visit Minutes 85 Visit Number 10 Evaluation Information Evaluation Date 01/26/23 PT-OP-B Current Condition Start: 01/25/23 16:40 Freq: Status: Active Protocol: Document 03/02/23 08:49 SAK (Rec: 03/02/23 09:02 SAK [id number]) Current Condition History of Current Condition Onset Date 1 month Current Complaints lymphedema left UE and breast History of Current Condition 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 Has had radiation and chemotherapy completed in 2021. Reports when getting her port flushed 1 month ago the nurse noticed swelling in her left UE, also identified in her left breast. Patient denies pain or other symptoms except reporting bruising left under arm area which is new and she is going to have an ultrasound and mammogram on 01/31/23. Reports some stiffness left UE with decreased ability to use for usual activities. Not currently doing any exercises; states was not given any to do after surgery. Prior Treatments and Tests chemotherapy radiation immunotherapy Future Testing and Treatments Planned Ultrasound and mammogram due to bruised area left axillary region. PT-OP-C Subjective Start: 01/25/23 16:40 Freq: Status: Active Protocol: Document 02/23/23 14:12 SAK (Rec: 02/17/23 13:31 SAK [id number]) OP-PT Subjective Patient Comments Patient Comments Bolero sleeve should come next week for bilateral UE compression vs wearing 2 individual sleeves as has been doing past few months (doesn' t stay high enough on arms), hasn't heard back from [facility] yet. Wearing jhon or bike shorts and knee high compression stockings for LE and trunk compression. Not sure she feels any reduction in any part of her body. Back pain continues to be an issue, seeing pain specialist Dr. Arroyo 03/01/23. Trying to wear back brace but not sure if helping. Patient Reported Progress Improving PT-OP-F Manual Assessment Start: 01/25/23 16:40 Freq: Status: Active Protocol: Document 01/26/23 10:30 SAK (Rec: 01/26/23 17:06 SAK [id number]) Manual Assessments Soft Tissue Assessment Soft Tissue Mobility Assessment peau d'orange skin changes left breast. Noted significant bruises with induration lateral left breast and subaxillary region with are palpable soft tissue nodules same region PT-OP-H Neuro Start: 01/25/23 16:40 Freq: Status: Active Protocol: Document 01/26/23 10:30 SAK (Rec: 01/26/23 17:06 SAK [id number]) Sensation Evaluation Gross Sensation Gross Sensation WNL PT-OP-J Posture/Palpation/Skin Start: 01/25/23 16:40 Freq: Status: Active Protocol: Document 01/26/23 10:30 SAK (Rec: 01/26/23 17:06 SAK [id number]) Posture Evaluation Position Sitting Head/C-Spine Posture Forward Head T-Spine Posture Increased Kyphosis Shoulder Posture (L) Rounded,(R) Rounded Arm Posture (L) Internally Rotated,(R) Internally Rotated Skin Assessment Edema Assessment left UE and breast Edema Appearance Discolored,Puffy Subjective Edema Description Tightness PT-OP-K Range of Motion Start: 01/25/23 16:40 Freq: Status: Active Protocol: Document 01/26/23 10:30 SAK (Rec: 01/26/23 17:06 SAK [id number]) Shoulder Goniometric Range of Motion Shoulder Measured in Degrees Left Active Shoulder ROM WFL No Flexion 135 Extension 25 Abduction 150 External Rotation at 0 degrees Abduction 45 Internal Rotation 40 Internal Rotation Behind Back (text) lateral hip Right Active Shoulder ROM WFL Yes Shoulder ROM Limitations Shoulder ROM Limitations Soft Tissue Tightness,Pain, Swelling Elbow/Forearm Range of Motion Elbow/Forearm Measured in Degrees kiesha Elbow/Forearm ROM WFL Yes PT-OP-N Lymphedema Start: 01/25/23 16:40 Freq: Status: Active Protocol: Document 03/02/23 08:49 SAK (Rec: 03/02/23 09:02 [facility] [id number]) Lymphedema Measurements Upper Extremity Circumference Measurements Left Affected - 96.8 113.9 PT-OP-T Assessment and Plan Start: 01/25/23 16:40 Freq: Status: Active Protocol: Document 03/02/23 08:49 [facility] (Rec: 03/02/23 09:02 [facility] [id number]) Physical Therapy Assessment Impairments Impairments Edema,ROM,Soft Tissue Mobility Goals Three Impairment lymphedema life impact scale Mcc Goal (LTG) decrease by at least 50% as measure of improved quality of life LTG Duration 04/28/23 Two Impairment decreased left UE ROM Short Term Goal (STG) Patient to be instructed in ROM exercises for left UE STG Duration 02/25/23 Pay Agent Goal (LTG) Patient to demonstrate full active ROM left UE and be able to return to normal use of her left UE for all activities LTG Duration 04/28/23 One Impairment lymphedema left UE and breast Short Term Goal (STG) Patient to be instructed in all aspects of lymphedema care to include skin care, precautions, MLD, lymphedema exercises, compression STG Duration 02/25/23 Mcc Goal (LTG) Decrease lymphedema to a stable level (no increase or decrease greater than 1 cm over the course of 1 week), patient to obtain appropriate and effective compression garments for breast and left UE, and demonstrate good understanding of all aspects of self-care for lymphedema LTG Duration 04/28/23 Assessment Summary Assessment Patient continues to benefit from lymphedema management with decreased fibrosis in tissues of breast and forearm with manual treatment, lymphedema bandaging, use of chip bag in bra, self massage. Physical Therapy Plan Frequency and Duration Frequency of Treatment 20 visits Duration of treatment (weeks) 12 Plan of Care Start Date 01/26/23 Plan of Care End Date 04/28/23 Therapeutic Interventions Therapeutic Interventions Lymphedema Management,Manual Therapy,Patient/Caregiver Education,Self-Care/Home Management,Taping,Therapeutic Exercises Next Visit Focus/Plan Next Note Type Treatment Note Next Visit Plan Continue lymphedema management while patient awaits delivery of compression sleeve and gauntlet. Circumferential measurements.
--- NOTE | 2023-03-03 09:24 | PT.OTN ---
Current Diagnoses Malignant neoplasm of unspecified site of unspecified female breast (03/03/23) Secondary and unspecified malignant neoplasm of axilla and upper limb lymph nodes (03/03/23) Lymphedema, not elsewhere classified (03/03/23) Physical Therapy Treatment Note PT-OP-A Visit Information Start: 01/25/23 16:40 Freq: Status: Active Protocol: Document 03/03/23 08:00 [facility] (Rec: 03/03/23 09:24 [facility] [id number]) Out-Patient Physical Therapy Visit Information Visit Information Visit Type Treatment Note Visit Start Time 08:00 Visit Stop Time 09:30 Total Visit Minutes 90 Visit Number 11 PT-OP-B Current Condition Start: 01/25/23 16:40 Freq: Status: Active Protocol: Document 03/03/23 08:00 [facility] (Rec: 03/03/23 09:24 [facility] [id number]) Current Condition History of Current Condition Onset Date 1 month Current Complaints lymphedema left UE and breast History of Current Condition 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 Has had radiation and chemotherapy completed in 2021. Reports when getting her port flushed 1 month ago the nurse noticed swelling in her left UE, also identified in her left breast. Patient denies pain or other symptoms except reporting bruising left under arm area which is new and she is going to have an ultrasound and mammogram on 01/31/23. Reports some stiffness left UE with decreased ability to use for usual activities. Not currently doing any exercises; states was not given any to do after surgery. Prior Treatments and Tests chemotherapy radiation immunotherapy Future Testing and Treatments Planned Ultrasound and mammogram due to bruised area left axillary region. Treatment Goals Patient/Caregiver Goals Decrease swelling and return to full active use of her left UE. PT-OP-C Subjective Start: 01/25/23 16:40 Freq: Status: Active Protocol: Document 02/23/23 14:12 SAK (Rec: 02/17/23 13:31 [facility] [id number]) OP-PT Subjective Patient Comments Patient Comments Bolero sleeve should come next week for bilateral UE compression vs wearing 2 individual sleeves as has been doing past few months (doesn' t stay high enough on arms), hasn't heard back from [facility] yet. Wearing jhon or bike shorts and knee high compression stockings for LE and trunk compression. Not sure she feels any reduction in any part of her body. Back pain continues to be an issue, seeing pain specialist Dr. Arroyo 03/01/23. Trying to wear back brace but not sure if helping. Patient Reported Progress Improving PT-OP-F Manual Assessment Start: 01/25/23 16:40 Freq: Status: Active Protocol: Document 01/26/23 10:30 SAK (Rec: 01/26/23 17:06 SAK [id number]) Manual Assessments Soft Tissue Assessment Soft Tissue Mobility Assessment peau d'orange skin changes left breast. Noted significant bruises with induration lateral left breast and subaxillary region with are palpable soft tissue nodules same region PT-OP-H Neuro Start: 01/25/23 16:40 Freq: Status: Active Protocol: Document 01/26/23 10:30 SAK (Rec: 01/26/23 17:06 SAK [id number]) Sensation Evaluation Gross Sensation Gross Sensation WNL PT-OP-J Posture/Palpation/Skin Start: 01/25/23 16:40 Freq: Status: Active Protocol: Document 01/26/23 10:30 SAK (Rec: 01/26/23 17:06 SAK [id number]) Posture Evaluation Position Sitting Head/C-Spine Posture Forward Head T-Spine Posture Increased Kyphosis Shoulder Posture (L) Rounded,(R) Rounded Arm Posture (L) Internally Rotated,(R) Internally Rotated Skin Assessment Edema Assessment left UE and breast Edema Appearance Discolored,Puffy Subjective Edema Description Tightness PT-OP-K Range of Motion Start: 01/25/23 16:40 Freq: Status: Active Protocol: Document 01/26/23 10:30 SAK (Rec: 01/26/23 17:06 SAK [id number]) Shoulder Goniometric Range of Motion Shoulder Left Active Shoulder ROM WFL No Flexion 135 Extension 25 Abduction 150 External Rotation at 0 degrees Abduction 45 Internal Rotation 40 Internal Rotation Behind Back (text) lateral hip Right Active Shoulder ROM WFL Yes Shoulder ROM Limitations Shoulder ROM Limitations Soft Tissue Tightness,Pain, Swelling Elbow/Forearm Range of Motion Elbow/Forearm kiesha Elbow/Forearm ROM WFL Yes PT-OP-N Lymphedema Start: 01/25/23 16:40 Freq: Status: Active Protocol: Document 03/03/23 08:00 SAK (Rec: 03/03/23 09:24 [facility] [id number]) Lymphedema Measurements Upper Extremity Circumference Measurements Left Affected MCP 19.6 cm Dorsum of Hand 19.6 cm Wrist 19 cm 5 cm From Wrist Crease 21.7 cm 10 cm From Wrist Crease 25.2 cm 15 cm From Wrist Crease 27.2 cm 20 cm From Wrist Crease 27 cm 25 cm From Wrist Crease 28 cm 30 cm From Wrist Crease 30.4 cm 35 cm From Wrist Crease 33.2 cm 40 cm From Wrist Crease 34.8 cm 45 cm From Wrist Crease 34.8 cm Elbow Joint 27.1 cm PT-OP-Q Treatments Start: 01/25/23 16:40 Freq: Status: Active Protocol: Document 03/03/23 08:00 [facility] (Rec: 03/03/23 09:24 [facility] [id number]) Cardio Equipment Recumbent Stepper (Sci-Fit) Duration (Minutes) 5 Resistance 1 Seat Position 11 Other to facilitate lymphatic flow after bandaging Therapeutic Exercises Supine Exercises I, Y, T stretches Reps/Minutes 5x AROM f/b end-range stretch Sidelying Exercises open book Reps/Minutes 5x circles Reps/Minutes 5x Lymphedema Treatment Manual Lymphatic Drainage Location for left UE lymphedema, left breast including massage of fibrotic areas Duration 45 Comments focus on AAA and AAF pathways, manual treatment to fibrotic tissue in breast and forearm Lymphedema Wrapping Body Location left UE, left breast Materials Size F tricofix, 2 rolls elastamole to fingers, black foam forearm, 2.5 rolls Artiflex, Comprilan (6,8,10) applied to left UE Other Other instruction in correct donning of compression sleeve without and with donning aid PT-OP-R Modalities Start: 01/25/23 16:40 Freq: Status: Active Protocol: Document 02/28/23 08:00 [facility] (Rec: 02/28/23 08:23 [facility] [id number]) Compression Pump Treatment Treatment Location left UE Pressure Amount (mmHg) (mmHG) 35 Inflation Time (Seconds) 30 Deflation Time (Seconds) 10 Treatment Duration (minutes) 30 Treatment Tolerance Good PT-OP-T Assessment and Plan Start: 01/25/23 16:40 Freq: Status: Active Protocol: Document 03/03/23 08:00 [facility] (Rec: 03/03/23 09:24 SAK [id number]) Physical Therapy Assessment Impairments Impairments Edema,ROM,Soft Tissue Mobility Goals Three Impairment lymphedema life impact scale Tea Blender Goal (LTG) decrease by at least 50% as measure of improved quality of life LTG Duration 04/28/23 Two Impairment decreased left UE ROM Short Term Goal (STG) Patient to be instructed in ROM exercises for left UE STG Duration 02/25/23 Nursing Home Goal (LTG) Patient to demonstrate full active ROM left UE and be able to return to normal use of her left UE for all activities LTG Duration 04/28/23 One Impairment lymphedema left UE and breast Short Term Goal (STG) Patient to be instructed in all aspects of lymphedema care to include skin care, precautions, MLD, lymphedema exercises, compression STG Duration 02/25/23 Tea Blender Goal (LTG) Decrease lymphedema to a stable level (no increase or decrease greater than 1 cm over the course of 1 week), patient to obtain appropriate and effective compression garments for breast and left UE, and demonstrate good understanding of all aspects of self-care for lymphedema LTG Duration 04/28/23 Assessment Summary Assessment Minimal change in circumferential measurements. Patient hoping to get compression sleeve today before leaving on trip. Modified HEP due to some persistent ROM limitations left shoulder; issued written handout and platient demonstrated good understanding. Physical Therapy Plan Frequency and Duration Frequency of Treatment 20 visits Duration of treatment (weeks) 12 Plan of Care Start Date 01/26/23 Plan of Care End Date 04/28/23 Therapeutic Interventions Therapeutic Interventions Lymphedema Management,Manual Therapy,Patient/Caregiver Education,Self-Care/Home Management,Taping,Therapeutic Exercises Next Visit Focus/Plan Next Note Type Treatment Note Next Visit Plan Patient to have biopsy of lymph node left supraclavicular area 03/15/23. Continue lymphedema management while patient awaits delivery of compression sleeve and gauntlet. Circumferential measurements.
--- NOTE | 2023-03-09 16:35 | PT.OTN ---
Current Diagnoses Malignant neoplasm of unspecified site of unspecified female breast (03/09/23) Secondary and unspecified malignant neoplasm of axilla and upper limb lymph nodes (03/09/23) Lymphedema, not elsewhere classified (03/09/23) Physical Therapy Treatment Note PT-OP-A Visit Information Start: 01/25/23 16:40 Freq: Status: Active Protocol: Document 03/09/23 08:49 SAK (Rec: 03/09/23 09:56 [facility] [id number]) Out-Patient Physical Therapy Visit Information Visit Information Visit Type Treatment Note Visit Note Got compression gauntlet, hurt little finger in the middle of the night. Reports weight increased 3 lbs after being on vacation. 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 Has had radiation and chemotherapy completed in 2021. Reports when getting her port flushed 1 month ago the nurse noticed swelling in her left UE, also identified in her left breast. Patient denies pain or other symptoms except reporting bruising left under arm area which is new and she is going to have an ultrasound and mammogram on 01/31/23. Reports some stiffness left UE with decreased ability to use for usual activities. Not currently doing any exercises; states was not given any to do after surgery. Prior Treatments and Tests chemotherapy radiation immunotherapy Future Testing and Treatments Planned Ultrasound and mammogram due to bruised area left axillary region. Treatment Goals Patient/Caregiver Goals Decrease swelling and return to full active use of her left UE. PT-OP-C Subjective Start: 01/25/23 16:40 Freq: Status: Active Protocol: Document 02/23/23 14:12 SAK (Rec: 02/17/23 13:31 SAK [id number]) OP-PT Subjective Patient Comments Patient Comments Bolero sleeve should come next week for bilateral UE compression vs wearing 2 individual sleeves as has been doing past few months (doesn' t stay high enough on arms), hasn't heard back from [facility] yet. Wearing jhon or bike shorts and knee high compression stockings for LE and trunk compression. Not sure she feels any reduction in any part of her body. Back pain continues to be an issue, seeing pain specialist Dr. Arroyo 03/01/23. Trying to wear back brace but not sure if helping. Patient Reported Progress Improving PT-OP-F Manual Assessment Start: 01/25/23 16:40 Freq: Status: Active Protocol: Document 01/26/23 10:30 SAK (Rec: 01/26/23 17:06 SAK [id number]) Manual Assessments Soft Tissue Assessment Soft Tissue Mobility Assessment peau d'orange skin changes left breast. Noted significant bruises with induration lateral left breast and subaxillary region with are palpable soft tissue nodules same region PT-OP-H Neuro Start: 01/25/23 16:40 Freq: Status: Active Protocol: Document 01/26/23 10:30 SAK (Rec: 01/26/23 17:06 [facility] [id number]) Sensation Evaluation Gross Sensation Gross Sensation WNL PT-OP-J Posture/Palpation/Skin Start: 01/25/23 16:40 Freq: Status: Active Protocol: Document 01/26/23 10:30 SAK (Rec: 01/26/23 17:06 [facility] [id number]) Posture Evaluation Position Sitting Head/C-Spine Posture Forward Head T-Spine Posture Increased Kyphosis Shoulder Posture (L) Rounded,(R) Rounded Arm Posture (L) Internally Rotated,(R) Internally Rotated Skin Assessment Edema Assessment left UE and breast Edema Appearance Discolored,Puffy Subjective Edema Description Tightness PT-OP-K Range of Motion Start: 01/25/23 16:40 Freq: Status: Active Protocol: Document 01/26/23 10:30 SAK (Rec: 01/26/23 17:06 SAK [id number]) Shoulder Goniometric Range of Motion Shoulder Left Active Shoulder ROM WFL No Flexion 135 Extension 25 Abduction 150 External Rotation at 0 degrees Abduction 45 Internal Rotation 40 Internal Rotation Behind Back (text) lateral hip Right Active Shoulder ROM WFL Yes Shoulder ROM Limitations Shoulder ROM Limitations Soft Tissue Tightness,Pain, Swelling Elbow/Forearm Range of Motion Elbow/Forearm kiesha Elbow/Forearm ROM WFL Yes PT-OP-N Lymphedema Start: 01/25/23 16:40 Freq: Status: Active Protocol: Document 03/09/23 08:49 [facility] (Rec: 03/09/23 09:56 [facility] [id number]) Lymphedema Measurements Upper Extremity Circumference Measurements Left Affected MCP 19.6 cm Dorsum of Hand 19.3 cm Wrist 18.2 cm 5 cm From Wrist Crease 22.4 cm 10 cm From Wrist Crease 25.9 cm 15 cm From Wrist Crease 27.8 cm 20 cm From Wrist Crease 28.5 cm 25 cm From Wrist Crease 29.5 cm 30 cm From Wrist Crease 32.4 cm 35 cm From Wrist Crease 35 cm 40 cm From Wrist Crease 36.3 cm 45 cm From Wrist Crease 37.4 cm Elbow Joint 29.2 cm - 97.5 115.3 PT-OP-Q Treatments Start: 01/25/23 16:40 Freq: Status: Active Protocol: Document 03/09/23 08:49 [facility] (Rec: 03/09/23 09:56 [facility] [id number]) Cardio Equipment Recumbent Stepper (Sci-Fit) Duration (Minutes) 5 Resistance 1 Seat Position 11 Other to facilitate lymphatic flow after bandaging Therapeutic Exercises Supine Exercises I, Y, T stretches Reps/Minutes 5x AROM f/b end-range stretch Sidelying Exercises open book Reps/Minutes 5x circles Reps/Minutes 5x Lymphedema Treatment Manual Lymphatic Drainage Location for left UE lymphedema, left breast including massage of fibrotic areas Duration 45 Comments focus on AAA and AAF pathways, manual treatment to fibrotic tissue in breast and forearm Lymphedema Wrapping Body Location left UE, left breast Materials Size F tricofix, 2 rolls elastamole to fingers, black foam forearm, 2.5 rolls Artiflex, Comprilan (6,8,10) applied to left UE, new, larger chip bag in sports bra Compression Garment Assessment Compression Garment Assessment Details good fit of compression gauntlet but feel patient wore too long, instructed not to wear at night. At this time will bandage as doesn't have sleeve yet for easy removal of gauntlet and sleeve if not tolerating. Other Other Instruction in correct fit, donning, wearing schedule when receives sleeve if doesn't see PT first, gradually increase time in compression garments as tolerated. PT-OP-R Modalities Start: 01/25/23 16:40 Freq: Status: Active Protocol: Document 02/28/23 08:00 [facility] (Rec: 02/28/23 08:23 [facility] [id number]) Compression Pump Treatment Treatment Location left UE Pressure Amount (mmHg) (mmHG) 35 Inflation Time (Seconds) 30 Deflation Time (Seconds) 10 Treatment Duration (minutes) 30 Treatment Tolerance Good PT-OP-T Assessment and Plan Start: 01/25/23 16:40 Freq: Status: Active Protocol: Document 03/09/23 08:49 [facility] (Rec: 03/09/23 09:56 [facility] [id number]) Physical Therapy Assessment Impairments Impairments Edema,ROM,Soft Tissue Mobility Goals Three Impairment lymphedema life impact scale Sales Exec Goal (LTG) decrease by at least 50% as measure of improved quality of life LTG Duration 04/28/23 Two Impairment decreased left UE ROM Short Term Goal (STG) Patient to be instructed in ROM exercises for left UE STG Duration 02/25/23 Sales Exec Goal (LTG) Patient to demonstrate full active ROM left UE and be able to return to normal use of her left UE for all activities LTG Duration 04/28/23 One Impairment lymphedema left UE and breast Short Term Goal (STG) Patient to be instructed in all aspects of lymphedema care to include skin care, precautions, MLD, lymphedema exercises, compression STG Duration 02/25/23 Sales Exec Goal (LTG) Decrease lymphedema to a stable level (no increase or decrease greater than 1 cm over the course of 1 week), patient to obtain appropriate and effective compression garments for breast and left UE, and demonstrate good understanding of all aspects of self-care for lymphedema LTG Duration 04/28/23 Assessment Summary Assessment Circumferential measurements dec in hand, inc in rest of left UE while patient on vacation, not seen for 6 days in PT. Patient wore gauntlet at night (removed i middle of night due to discomfort) which caused bruising base of thumb and little finger; reviewed imortance of wearing compression garments during day only. Discussed benefits of pneumatic sequential pump for home use to assist in self -care of lymphedema due to easy exacerbation; patient receptive. Should receive compression sleeve this week, encouraged to bandage until then. Physical Therapy Plan Frequency and Duration Frequency of Treatment 20 visits Duration of treatment (weeks) 12 Plan of Care Start Date 01/26/23 Plan of Care End Date 04/28/23 Therapeutic Interventions Therapeutic Interventions Lymphedema Management,Manual Therapy,Patient/Caregiver Education,Self-Care/Home Management,Taping,Therapeutic Exercises Next Visit Focus/Plan Next Note Type Treatment Note Next Visit Plan Patient to have biopsy of lymph node left supraclavicular area 03/15/23. Continue lymphedema management while patient awaits delivery of compression sleeve Circumferential measurements. Request order for sequential pneumatic pump to assist patient with home management
--- NOTE | 2023-03-10 15:02 | PT.OTN ---
Current Diagnoses Malignant neoplasm of unspecified site of unspecified female breast (03/10/23) Secondary and unspecified malignant neoplasm of axilla and upper limb lymph nodes (03/10/23) Lymphedema, not elsewhere classified (03/10/23) Physical Therapy Treatment Note PT-OP-A Visit Information Start: 01/25/23 16:40 Freq: Status: Active Protocol: Document 03/10/23 13:17 SAK (Rec: 03/10/23 13:53 [facility] [id number]) Out-Patient Physical Therapy Visit Information Visit Information Visit Type Treatment Note Visit Start Time 13:17 Visit Stop Time 14:40 Total Visit Minutes 83 Visit Number 13 Evaluation Information Evaluation Date 01/26/23 PT-OP-B Current Condition Start: 01/25/23 16:40 Freq: Status: Active Protocol: Document 03/10/23 13:17 SAK (Rec: 03/10/23 13:53 [facility] [id number]) Current Condition History of Current Condition Onset Date 1 month Current Complaints lymphedema left UE and breast History of Current Condition 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 Has had radiation and chemotherapy completed in 2021. Reports when getting her port flushed 1 month ago the nurse noticed swelling in her left UE, also identified in her left breast. Patient denies pain or other symptoms except reporting bruising left under arm area which is new and she is going to have an ultrasound and mammogram on 01/31/23. Reports some stiffness left UE with decreased ability to use for usual activities. Not currently doing any exercises; states was not given any to do after surgery. Prior Treatments and Tests chemotherapy radiation immunotherapy Future Testing and Treatments Planned Ultrasound and mammogram due to bruised area left axillary region. Treatment Goals Patient/Caregiver Goals Decrease swelling and return to full active use of her left UE. PT-OP-C Subjective Start: 01/25/23 16:40 Freq: Status: Active Protocol: Document 02/23/23 14:12 SAK (Rec: 02/17/23 13:31 [facility] [id number]) OP-PT Subjective Patient Comments Patient Comments Bolero sleeve should come next week for bilateral UE compression vs wearing 2 individual sleeves as has been doing past few months (doesn' t stay high enough on arms), hasn't heard back from [facility] yet. Wearing jhon or bike shorts and knee high compression stockings for LE and trunk compression. Not sure she feels any reduction in any part of her body. Back pain continues to be an issue, seeing pain specialist Dr. Arroyo 03/01/23. Trying to wear back brace but not sure if helping. Patient Reported Progress Improving PT-OP-F Manual Assessment Start: 01/25/23 16:40 Freq: Status: Active Protocol: Document 01/26/23 10:30 SAK (Rec: 01/26/23 17:06 SAK [id number]) Manual Assessments Soft Tissue Assessment Soft Tissue Mobility Assessment peau d'orange skin changes left breast. Noted significant bruises with induration lateral left breast and subaxillary region with are palpable soft tissue nodules same region PT-OP-H Neuro Start: 01/25/23 16:40 Freq: Status: Active Protocol: Document 01/26/23 10:30 SAK (Rec: 01/26/23 17:06 SAK [id number]) Sensation Evaluation Gross Sensation Gross Sensation WNL PT-OP-J Posture/Palpation/Skin Start: 01/25/23 16:40 Freq: Status: Active Protocol: Document 01/26/23 10:30 SAK (Rec: 01/26/23 17:06 SAK [id number]) Posture Evaluation Position Sitting Head/C-Spine Posture Forward Head T-Spine Posture Increased Kyphosis Shoulder Posture (L) Rounded,(R) Rounded Arm Posture (L) Internally Rotated,(R) Internally Rotated Skin Assessment Edema Assessment left UE and breast Edema Appearance Discolored,Puffy Subjective Edema Description Tightness PT-OP-K Range of Motion Start: 01/25/23 16:40 Freq: Status: Active Protocol: Document 01/26/23 10:30 SAK (Rec: 01/26/23 17:06 SAK [id number]) Shoulder Goniometric Range of Motion Shoulder Left Active Shoulder ROM WFL No Flexion 135 Extension 25 Abduction 150 External Rotation at 0 degrees Abduction 45 Internal Rotation 40 Internal Rotation Behind Back (text) lateral hip Right Active Shoulder ROM WFL Yes Shoulder ROM Limitations Shoulder ROM Limitations Soft Tissue Tightness,Pain, Swelling Elbow/Forearm Range of Motion Elbow/Forearm kiesha Elbow/Forearm ROM WFL Yes PT-OP-N Lymphedema Start: 01/25/23 16:40 Freq: Status: Active Protocol: Document 03/10/23 13:17 [facility] (Rec: 03/10/23 13:53 [facility] [id number]) Lymphedema Measurements Upper Extremity Circumference Measurements Left Affected MCP 19.2 cm Dorsum of Hand 19 cm Wrist 17.8 cm 5 cm From Wrist Crease 22 cm 10 cm From Wrist Crease 24.8 cm 15 cm From Wrist Crease 27.8 cm 20 cm From Wrist Crease 28.5 cm 25 cm From Wrist Crease 29.5 cm 30 cm From Wrist Crease 31.8 cm 35 cm From Wrist Crease 35 cm 40 cm From Wrist Crease 36.6 cm 45 cm From Wrist Crease 36.1 cm Elbow Joint 29 cm - 97.5 115.3 PT-OP-Q Treatments Start: 01/25/23 16:40 Freq: Status: Active Protocol: Document 03/10/23 13:17 [facility] (Rec: 03/10/23 13:53 [facility] [id number]) Cardio Equipment Recumbent Stepper (Sci-Fit) Duration (Minutes) 5 Resistance 1 Seat Position 11 Other to facilitate lymphatic flow after bandaging Lymphedema Treatment Manual Lymphatic Drainage Location for left UE lymphedema, left breast including massage of fibrotic areas Duration 45 Comments focus on AAA and AAF pathways, manual treatment to fibrotic tissue in breast and forearm Compression Garment Assessment Compression Garment Assessment Details Good fit of new sleeve (Jobst Strong) and gauntlet together with sleeve on outside of gauntlet. Education in donning and doffing x 2. Instructed to consider next garment with silicone top to prevent slipping; may try puffy fabric paint if has difficulty with slipping. Patient instructed to wear compression sleeve and gauntlet during the day, remove if painful. May try sleeping without compression. If unable to keep edema down at night can bandage or obtain night garment; given information about night garment. Patient Education Compression Garments as above PT-OP-R Modalities Start: 01/25/23 16:40 Freq: Status: Active Protocol: Document 02/28/23 08:00 [facility] (Rec: 02/28/23 08:23 [facility] [id number]) Compression Pump Treatment Treatment Location left UE Pressure Amount (mmHg) (mmHG) 35 Inflation Time (Seconds) 30 Deflation Time (Seconds) 10 Treatment Duration (minutes) 30 Treatment Tolerance Good PT-OP-T Assessment and Plan Start: 01/25/23 16:40 Freq: Status: Active Protocol: Document 03/10/23 13:17 [id number] (Rec: 03/10/23 13:53 [facility] [id number]) Physical Therapy Assessment Impairments Impairments Edema,ROM,Soft Tissue Mobility Goals Three Impairment lymphedema life impact scale Baggage Smasher Goal (LTG) decrease by at least 50% as measure of improved quality of life LTG Duration 04/28/23 Two Impairment decreased left UE ROM Short Term Goal (STG) Patient to be instructed in ROM exercises for left UE STG Duration 02/25/23 Baggage Smasher Goal (LTG) Patient to demonstrate full active ROM left UE and be able to return to normal use of her left UE for all activities LTG Duration 04/28/23 One Impairment lymphedema left UE and breast Short Term Goal (STG) Patient to be instructed in all aspects of lymphedema care to include skin care, precautions, MLD, lymphedema exercises, compression STG Duration 02/25/23 Nursing Home Goal (LTG) Decrease lymphedema to a stable level (no increase or decrease greater than 1 cm over the course of 1 week), patient to obtain appropriate and effective compression garments for breast and left UE, and demonstrate good understanding of all aspects of self-care for lymphedema LTG Duration 04/28/23 Assessment Summary Assessment Circumferential measurements showed good decrease after bandaging and inc exercise, PT MLD. Good fit of sleeve though did not get one with silicone at top; advised to consider obtaining puffy fabric paint to help prevent slipping if that is an issue, wear sleeve and glove only during the day. May try no compression at night but if difficult to control, either bandage or obtain night garment. Patient demonstrated good understanding. Physical Therapy Plan Frequency and Duration Frequency of Treatment 20 visits Duration of treatment (weeks) 12 Plan of Care Start Date 01/26/23 Plan of Care End Date 04/28/23 Therapeutic Interventions Therapeutic Interventions Lymphedema Management,Manual Therapy,Patient/Caregiver Education,Self-Care/Home Management,Taping,Therapeutic Exercises Next Visit Focus/Plan Next Note Type Treatment Note Next Visit Plan ASsess response to wearing compression garments. Circumferential measurements. Continue lymphedema management in maintenance phase, assure good compliance and response to self- management.
--- NOTE | 2023-03-15 14:56 | PT.OTN ---
Current Diagnoses Malignant neoplasm of unspecified site of unspecified female breast (03/15/23) Secondary and unspecified malignant neoplasm of axilla and upper limb lymph nodes (03/15/23) Lymphedema, not elsewhere classified (03/15/23) Physical Therapy Treatment Note PT-OP-A Visit Information Start: 01/25/23 16:40 Freq: Status: Active Protocol: Document 03/15/23 13:30 SAK (Rec: 03/15/23 13:56 [facility] [id number]) Out-Patient Physical Therapy Visit Information Visit Information Visit Type Treatment Note Visit Start Time 13:30 Visit Number 14 PT-OP-B Current Condition Start: 01/25/23 16:40 Freq: Status: Active Protocol: Document 03/15/23 13:30 SAK (Rec: 03/15/23 13:56 [facility] [id number]) Current Condition History of Current Condition Onset Date 1 month Current Complaints lymphedema left UE and breast History of Current Condition 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 Has had radiation and chemotherapy completed in 2021. Reports when getting her port flushed 1 month ago the nurse noticed swelling in her left UE, also identified in her left breast. Patient denies pain or other symptoms except reporting bruising left under arm area which is new and she is going to have an ultrasound and mammogram on 01/31/23. Reports some stiffness left UE with decreased ability to use for usual activities. Not currently doing any exercises; states was not given any to do after surgery. Prior Treatments and Tests chemotherapy radiation immunotherapy Future Testing and Treatments Planned Ultrasound and mammogram due to bruised area left axillary region. PT-OP-C Subjective Start: 01/25/23 16:40 Freq: Status: Active Protocol: Document 03/15/23 13:30 SAK (Rec: 03/15/23 13:56 [facility] [id number]) OP-PT Subjective Patient Comments Patient Comments Had biopsy this am. Has appointment with Dr. Almazan next week at [facility]. WEaring compression sleeve and glove, still difficulty donning, and slides down due to no silicone . Sees Dr. Clifford 03/14/23. PT-OP-F Manual Assessment Start: 01/25/23 16:40 Freq: Status: Active Protocol: Document 01/26/23 10:30 SAK (Rec: 01/26/23 17:06 SAK [id number]) Manual Assessments Soft Tissue Assessment Soft Tissue Mobility Assessment peau d'orange skin changes left breast. Noted significant bruises with induration lateral left breast and subaxillary region with are palpable soft tissue nodules same region PT-OP-H Neuro Start: 01/25/23 16:40 Freq: Status: Active Protocol: Document 01/26/23 10:30 SAK (Rec: 01/26/23 17:06 SAK [id number]) Sensation Evaluation Gross Sensation Gross Sensation WNL PT-OP-J Posture/Palpation/Skin Start: 01/25/23 16:40 Freq: Status: Active Protocol: Document 01/26/23 10:30 SAK (Rec: 01/26/23 17:06 SAK [id number]) Posture Evaluation Position Sitting Head/C-Spine Posture Forward Head T-Spine Posture Increased Kyphosis Shoulder Posture (L) Rounded,(R) Rounded Arm Posture (L) Internally Rotated,(R) Internally Rotated Skin Assessment Edema Assessment left UE and breast Edema Appearance Discolored,Puffy Subjective Edema Description Tightness PT-OP-K Range of Motion Start: 01/25/23 16:40 Freq: Status: Active Protocol: Document 01/26/23 10:30 SAK (Rec: 01/26/23 17:06 SAK [id number]) Shoulder Goniometric Range of Motion Shoulder Left Active Shoulder ROM WFL No Flexion 135 Extension 25 Abduction 150 External Rotation at 0 degrees Abduction 45 Internal Rotation 40 Internal Rotation Behind Back (text) lateral hip Right Active Shoulder ROM WFL Yes Shoulder ROM Limitations Shoulder ROM Limitations Soft Tissue Tightness,Pain, Swelling Elbow/Forearm Range of Motion Elbow/Forearm kiesha Elbow/Forearm ROM WFL Yes PT-OP-N Lymphedema Start: 01/25/23 16:40 Freq: Status: Active Protocol: Document 03/15/23 13:30 SAK (Rec: 03/15/23 13:56 [facility]AK [id number]) Lymphedema Measurements Upper Extremity Circumference Measurements Left Affected MCP 19.4 cm Dorsum of Hand 20.1 cm Wrist 19 cm 5 cm From Wrist Crease 21.5 cm 10 cm From Wrist Crease 25.3 cm 15 cm From Wrist Crease 27.2 cm 20 cm From Wrist Crease 28 cm 25 cm From Wrist Crease 29 cm 30 cm From Wrist Crease 33.3 cm 35 cm From Wrist Crease 34.7 cm 40 cm From Wrist Crease 37.4 cm 45 cm From Wrist Crease 37 cm Elbow Joint 28.5 cm - 97.8 114 PT-OP-Q Treatments Start: 01/25/23 16:40 Freq: Status: Active Protocol: Document 03/15/23 13:30 [facility] (Rec: 03/15/23 13:56 [facility] [id number]) Cardio Equipment Recumbent Stepper (Sci-Fit) Duration (Minutes) 5 Resistance 1 Seat Position 11 Other to facilitate lymphatic flow after bandaging Therapeutic Exercises Supine Exercises I, Y, T stretches Reps/Minutes 5x AROM f/b end-range stretch Comments instruction to use wand or cane Sitting Exercises pulleys Sitting Exercise Name flexion, scaption Side left Equipment Used pulleys Reps/Minutes 10x ea Lymphedema Treatment Manual Lymphatic Drainage Location for left UE lymphedema, left breast including massage of fibrotic areas Duration 45 Comments focus on AAA and AAF pathways, manual treatment to fibrotic tissue in breast and forearm Lymphedema Wrapping Other assisted patient in donning gauntlet and compression sleeve Sequential Lymphedema Exercises Comments reviewed Compression Garment Assessment Compression Garment Assessment Details causing tourniquet effect at wrist with increased circumferential measurements wrist area and increased measurements proximal to top of compression sleeve due to sliding down; has ordered additional sleeve with silicone at top andshould arrive this week. PT-OP-R Modalities Start: 01/25/23 16:40 Freq: Status: Active Protocol: Document 02/28/23 08:00 [facility] (Rec: 02/28/23 08:23 [facility] [id number]) Compression Pump Treatment Treatment Location left UE Pressure Amount (mmHg) (mmHG) 35 Inflation Time (Seconds) 30 Deflation Time (Seconds) 10 Treatment Duration (minutes) 30 Treatment Tolerance Good PT-OP-T Assessment and Plan Start: 01/25/23 16:40 Freq: Status: Active Protocol: Document 03/15/23 13:30 [facility] (Rec: 03/15/23 13:56 [facility] [id number]) Physical Therapy Assessment Impairments Impairments Edema,ROM,Soft Tissue Mobility Goals Three Impairment lymphedema life impact scale Custodial Goal (LTG) decrease by at least 50% as measure of improved quality of life 03/15/23: goal progress LTG Duration 04/28/23 Two Impairment decreased left UE ROM Short Term Goal (STG) Patient to be instructed in ROM exercises for left UE STG Duration goal met Custom Ski Maker Goal (LTG) Patient to demonstrate full active ROM left UE and be able to return to normal use of her left UE for all activities LTG Duration 04/28/23 One Impairment lymphedema left UE and breast Short Term Goal (STG) Patient to be instructed in all aspects of lymphedema care to include skin care, precautions, MLD, lymphedema exercises, compression STG Duration goal met Custom Ski Maker Goal (LTG) Decrease lymphedema to a stable level (no increase or decrease greater than 1 cm over the course of 1 week), patient to obtain appropriate and effective compression garments for breast and left UE, and demonstrate good understanding of all aspects of self-care for lymphedema 03/15/23: good goal progress LTG Duration 04/28/23 Assessment Summary Assessment Better fit of gauntlet and sleeve with PT assist for donning technique and adjustment of fabric, patient has new sleeve with silicone at top coming later this week. She is independent with skin care, self MLD, lymphedema exercises. Patient continues to wear chip bag in sports bra for lymphedema left breast; decreased circumferential measurements noted today. Despite this and PT since she still has difficulty with managing lymphedema at home as evidenced by increase in circumferential measurements at wrist and upper arm today. Feel she would benefit highly from use of sequential pneumatic pump in the home as an adjunct treatment for lymphedema management. She is at high risk for cellulitis and other complications from lymphedema. Patient had biopsy shoulder region, sees oncologist and PCP next week. Physical Therapy Plan Frequency and Duration Frequency of Treatment 20 visits Duration of treatment (weeks) 12 Plan of Care Start Date 01/26/23 Plan of Care End Date 04/28/23 Therapeutic Interventions Therapeutic Interventions Lymphedema Management,Manual Therapy,Patient/Caregiver Education,Self-Care/Home Management,Taping,Therapeutic Exercises Next Visit Focus/Plan Next Note Type Treatment Note Next Visit Plan Review correct donning and fit of compression garments, assure patient able to do independently. Continue lymphedema maintenance phase with emphasis on continued manual techniques to fibrotic tissue in breast and forearm. Pursue assisting patient in obtaining sequential pneumatic pump.
--- NOTE | 2023-03-17 09:59 | PT.OTN ---
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) Lymphedema, not elsewhere classified (03/17/23) Physical Therapy Treatment Note PT-OP-A Visit Information Start: 01/25/23 16:40 Freq: Status: Active Protocol: Document 03/17/23 08:47 SAK (Rec: 03/17/23 09:03 [facility] [id number]) Out-Patient Physical Therapy Visit Information Visit Information Visit Type Treatment Note Visit Start Time 08:47 Visit Stop Time 10:15 Total Visit Minutes 88 Visit Number 15 PT-OP-B Current Condition Start: 01/25/23 16:40 Freq: Status: Active Protocol: Document 03/17/23 08:47 SAK (Rec: 03/17/23 09:03 [facility] [id number]) Current Condition History of Current Condition Onset Date 1 month Current Complaints lymphedema left UE and breast History of Current Condition 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 Has had radiation and chemotherapy completed in 2021. Reports when getting her port flushed 1 month ago the nurse noticed swelling in her left UE, also identified in her left breast. Patient denies pain or other symptoms except reporting bruising left under arm area which is new and she is going to have an ultrasound and mammogram on 01/31/23. Reports some stiffness left UE with decreased ability to use for usual activities. Not currently doing any exercises; states was not given any to do after surgery. Prior Treatments and Tests chemotherapy radiation immunotherapy Future Testing and Treatments Planned Ultrasound and mammogram due to bruised area left axillary region. PT-OP-C Subjective Start: 01/25/23 16:40 Freq: Status: Active Protocol: Document 03/17/23 08:47 SAK (Rec: 03/17/23 09:03 [facility] [id number]) OP-PT Subjective Patient Comments Patient Comments Still struggling with compression donning and not getting tourniquet effect at wrist but overall doing well. Awaiting delivery of compression sleeve with silicone at top, then will put puffy fabric paint on top of current one for increased regulatory affairs analyst . Sees Dr. Clifford 03/21/23, Dr. Almazan 03/23/23. Reports cyst on lateral left breast still draining, no tenderness or inc warmth, applying bandaid and antibiotic ointment. PT-OP-F Manual Assessment Start: 01/25/23 16:40 Freq: Status: Active Protocol: Document 01/26/23 10:30 SAK (Rec: 01/26/23 17:06 [facility]AK [id number]) Manual Assessments Soft Tissue Assessment Soft Tissue Mobility Assessment peau d'orange skin changes left breast. Noted significant bruises with induration lateral left breast and subaxillary region with are palpable soft tissue nodules same region PT-OP-H Neuro Start: 01/25/23 16:40 Freq: Status: Active Protocol: Document 01/26/23 10:30 SAK (Rec: 01/26/23 17:06 [facility] [id number]) Sensation Evaluation Gross Sensation Gross Sensation WNL PT-OP-J Posture/Palpation/Skin Start: 01/25/23 16:40 Freq: Status: Active Protocol: Document 01/26/23 10:30 SAK (Rec: 01/26/23 17:06 [facility]AK [id number]) Posture Evaluation Position Sitting Head/C-Spine Posture Forward Head T-Spine Posture Increased Kyphosis Shoulder Posture (L) Rounded,(R) Rounded Arm Posture (L) Internally Rotated,(R) Internally Rotated Skin Assessment Edema Assessment left UE and breast Edema Appearance Discolored,Puffy Subjective Edema Description Tightness PT-OP-K Range of Motion Start: 01/25/23 16:40 Freq: Status: Active Protocol: Document 01/26/23 10:30 SAK (Rec: 01/26/23 17:06 [facility]AK [id number]) Shoulder Goniometric Range of Motion Shoulder Left Active Shoulder ROM WFL No Flexion 135 Extension 25 Abduction 150 External Rotation at 0 degrees Abduction 45 Internal Rotation 40 Internal Rotation Behind Back (text) lateral hip Right Active Shoulder ROM WFL Yes Shoulder ROM Limitations Shoulder ROM Limitations Soft Tissue Tightness,Pain, Swelling Elbow/Forearm Range of Motion Elbow/Forearm kiesha Elbow/Forearm ROM WFL Yes PT-OP-N Lymphedema Start: 01/25/23 16:40 Freq: Status: Active Protocol: Document 03/17/23 08:47 SAK (Rec: 03/17/23 09:03 [facility]AK [id number]) Lymphedema Measurements Upper Extremity Circumference Measurements Left Affected MCP 19.4 cm Dorsum of Hand 20 cm Wrist 17.5 cm 5 cm From Wrist Crease 21.4 cm 10 cm From Wrist Crease 24.7 cm 15 cm From Wrist Crease 27.6 cm 20 cm From Wrist Crease 29 cm 25 cm From Wrist Crease 29.7 cm 30 cm From Wrist Crease 33.3 cm 35 cm From Wrist Crease 35 cm 40 cm From Wrist Crease 37 cm 45 cm From Wrist Crease 38 cm Elbow Joint 29.7 cm PT-OP-Q Treatments Start: 01/25/23 16:40 Freq: Status: Active Protocol: Document 03/17/23 08:47 [facility] (Rec: 03/17/23 09:59 [facility] [id number]) Cardio Equipment Recumbent Stepper (Sci-Fit) Duration (Minutes) 5 Resistance 1 Seat Position 11 Other to facilitate lymphatic flow after bandaging Therapeutic Exercises Supine Exercises pec stretch Reps/Minutes 2x30 I, Y, T stretches Equipment Used cane Reps/Minutes 5x AROM f/b end-range stretch Sitting Exercises pulleys Sitting Exercise Name flexion, scaption Side left Equipment Used pulleys Reps/Minutes 10x ea Lymphedema Treatment Manual Lymphatic Drainage Location for left UE lymphedema, left breast including massage of fibrotic areas Duration 45 Comments focus on AAA and AAF pathways, manual treatment to fibrotic tissue in breast and forearm Lymphedema Wrapping Other assisted patient in donning gauntlet and compression sleeve Compression Garment Assessment Compression Garment Assessment Details causing tourniquet effect at wrist with increased circumferential measurements wrist area and increased measurements proximal to top of compression sleeve due to sliding down; has ordered additional sleeve with silicone at top andshould arrive this week. Patient Education Compression Garments as above PT-OP-R Modalities Start: 01/25/23 16:40 Freq: Status: Active Protocol: Document 03/17/23 08:47 [facility] (Rec: 03/17/23 09:59 [facility] [id number]) Compression Pump Treatment Treatment Location left UE Pressure Amount (mmHg) (mmHG) 35 Inflation Time (Seconds) 30 Deflation Time (Seconds) 10 Treatment Duration (minutes) 30 Treatment Tolerance Good Treatment Comments during soft tissue work to left breast PT-OP-T Assessment and Plan Start: 01/25/23 16:40 Freq: Status: Active Protocol: Document 03/17/23 08:47 [facility] (Rec: 03/17/23 09:03 [facility]AK [id number]) Physical Therapy Assessment Impairments Impairments Edema,ROM,Soft Tissue Mobility Goals Three Impairment lymphedema life impact scale Manufacturing Coordinator Goal (LTG) decrease by at least 50% as measure of improved quality of life 03/15/23: goal progress LTG Duration 04/28/23 Two Impairment decreased left UE ROM Short Term Goal (STG) Patient to be instructed in ROM exercises for left UE STG Duration goal met Manufacturing Coordinator Goal (LTG) Patient to demonstrate full active ROM left UE and be able to return to normal use of her left UE for all activities LTG Duration 04/28/23 One Impairment lymphedema left UE and breast Short Term Goal (STG) Patient to be instructed in all aspects of lymphedema care to include skin care, precautions, MLD, lymphedema exercises, compression STG Duration goal met Manufacturing Coordinator Goal (LTG) Decrease lymphedema to a stable level (no increase or decrease greater than 1 cm over the course of 1 week), patient to obtain appropriate and effective compression garments for breast and left UE, and demonstrate good understanding of all aspects of self-care for lymphedema 03/15/23: good goal progress LTG Duration 04/28/23 Assessment Summary Assessment Improved circumferential measurements wrist and forearm , inc upper arm where sleeve slides down and patient doesn' t have compression. Improving compliance to HEP, noting improved shoulder ROM. Physical Therapy Plan Frequency and Duration Frequency of Treatment 20 visits Duration of treatment (weeks) 12 Plan of Care Start Date 01/26/23 Plan of Care End Date 04/28/23 Therapeutic Interventions Therapeutic Interventions Lymphedema Management,Manual Therapy,Patient/Caregiver Education,Self-Care/Home Management,Taping,Therapeutic Exercises Next Visit Focus/Plan Next Note Type Treatment Note Next Visit Plan Continue lymphedema management , inc emphasis ROM and manual techniques of pin and stretch.
--- NOTE | 2023-03-22 14:04 | PT.OTN ---
Current Diagnoses Malignant neoplasm of unspecified site of unspecified female breast (03/22/23) Secondary and unspecified malignant neoplasm of axilla and upper limb lymph nodes (03/22/23) Lymphedema, not elsewhere classified (03/22/23) Physical Therapy Treatment Note PT-OP-A Visit Information Start: 01/25/23 16:40 Freq: Status: Active Protocol: Document 03/22/23 13:15 SAK (Rec: 03/22/23 13:43 [facility] [id number]) Out-Patient Physical Therapy Visit Information Visit Information Visit Type Treatment Note Visit Start Time 13:14 Visit Stop Time 15:44 Total Visit Minutes 90 Visit Number 16 PT-OP-B Current Condition Start: 01/25/23 16:40 Freq: Status: Active Protocol: Document 03/22/23 13:15 SAK (Rec: 03/22/23 13:43 [facility] [id number]) Current Condition History of Current Condition Onset Date 1 month Current Complaints lymphedema left UE and breast History of Current Condition 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 Has had radiation and chemotherapy completed in 2021. Reports when getting her port flushed 1 month ago the nurse noticed swelling in her left UE, also identified in her left breast. Patient denies pain or other symptoms except reporting bruising left under arm area which is new and she is going to have an ultrasound and mammogram on 01/31/23. Reports some stiffness left UE with decreased ability to use for usual activities. Not currently doing any exercises; states was not given any to do after surgery. Prior Treatments and Tests chemotherapy radiation immunotherapy Future Testing and Treatments Planned Ultrasound and mammogram due to bruised area left axillary region. PT-OP-C Subjective Start: 01/25/23 16:40 Freq: Status: Active Protocol: Document 03/22/23 13:15 SAK (Rec: 03/22/23 13:43 [facility] [id number]) OP-PT Subjective Patient Comments Patient Comments New sleeve came today, hasn't put on yet because had old one on. Saw Dr. Clifford who thinks cyst left chest might have to be removed; recommended neosporin and bandaid 2x/xay, still draining . Sees Dr. Almazan tomorro. PT-OP-F Manual Assessment Start: 01/25/23 16:40 Freq: Status: Active Protocol: Document 01/26/23 10:30 SAK (Rec: 01/26/23 17:06 SAK [id number]) Manual Assessments Soft Tissue Assessment Soft Tissue Mobility Assessment peau d'orange skin changes left breast. Noted significant bruises with induration lateral left breast and subaxillary region with are palpable soft tissue nodules same region PT-OP-H Neuro Start: 01/25/23 16:40 Freq: Status: Active Protocol: Document 01/26/23 10:30 SAK (Rec: 01/26/23 17:06 SAK [id number]) Sensation Evaluation Gross Sensation Gross Sensation WNL PT-OP-J Posture/Palpation/Skin Start: 01/25/23 16:40 Freq: Status: Active Protocol: Document 01/26/23 10:30 SAK (Rec: 01/26/23 17:06 SAK [id number]) Posture Evaluation Position Sitting Head/C-Spine Posture Forward Head T-Spine Posture Increased Kyphosis Shoulder Posture (L) Rounded,(R) Rounded Arm Posture (L) Internally Rotated,(R) Internally Rotated Skin Assessment Edema Assessment left UE and breast Edema Appearance Discolored,Puffy Subjective Edema Description Tightness PT-OP-K Range of Motion Start: 01/25/23 16:40 Freq: Status: Active Protocol: Document 01/26/23 10:30 SAK (Rec: 01/26/23 17:06 [facility] [id number]) Shoulder Goniometric Range of Motion Shoulder Left Active Shoulder ROM WFL No Flexion 135 Extension 25 Abduction 150 External Rotation at 0 degrees Abduction 45 Internal Rotation 40 Internal Rotation Behind Back (text) lateral hip Right Active Shoulder ROM WFL Yes Shoulder ROM Limitations Shoulder ROM Limitations Soft Tissue Tightness,Pain, Swelling Elbow/Forearm Range of Motion Elbow/Forearm kiesha Elbow/Forearm ROM WFL Yes PT-OP-N Lymphedema Start: 01/25/23 16:40 Freq: Status: Active Protocol: Document 03/22/23 13:15 SAK (Rec: 03/22/23 13:43 SAK [id number]) Lymphedema Measurements Upper Extremity Circumference Measurements Left Affected MCP 19.2 cm Dorsum of Hand 20.6 cm Wrist 17.2 cm 5 cm From Wrist Crease 21.2 cm 10 cm From Wrist Crease 24.3 cm 15 cm From Wrist Crease 27.3 cm 20 cm From Wrist Crease 28.6 cm 25 cm From Wrist Crease 29.7 cm 30 cm From Wrist Crease 32.4 cm 35 cm From Wrist Crease 35 cm 40 cm From Wrist Crease 37.4 cm 45 cm From Wrist Crease 36.7 cm Elbow Joint 28.5 cm PT-OP-Q Treatments Start: 01/25/23 16:40 Freq: Status: Active Protocol: Document 03/22/23 13:15 [facility] (Rec: 03/22/23 13:43 [facility] [id number]) Cardio Equipment Recumbent Stepper (Sci-Fit) Duration (Minutes) 5 Resistance 1 Seat Position 11 Other to facilitate lymphatic flow after bandaging Therapeutic Exercises Supine Exercises pec stretch Reps/Minutes 2x30 I, Y, T stretches Equipment Used cane Reps/Minutes 5x AROM f/b end-range stretch Sidelying Exercises open book Reps/Minutes 5x circles Reps/Minutes 5x Sitting Exercises pulleys Sitting Exercise Name flexion, scaption Side left Equipment Used pulleys Reps/Minutes 10x ea Lymphedema Treatment Manual Lymphatic Drainage Location for left UE lymphedema, left breast including massage of fibrotic areas Duration 45 Comments focus on AAA and AAF pathways, manual treatment to fibrotic tissue in breast and forearm Lymphedema Wrapping Other assisted patient in donning gauntlet and compression sleeve Compression Garment Assessment Compression Garment Assessment Details Good application of sleeve and gauntlet noted today without tourniquet effect at wrist, circumferential measurements decreased mostly. Cyst continues to drain, sees surgeon tomorrow. Patient Education Compression Garments as above PT-OP-R Modalities Start: 01/25/23 16:40 Freq: Status: Active Protocol: Document 03/22/23 13:15 [facility] (Rec: 03/22/23 14:04 [facility] [id number]) Compression Pump Treatment Treatment Location left UE Pressure Amount (mmHg) (mmHG) 35 Inflation Time (Seconds) 30 Deflation Time (Seconds) 10 Treatment Duration (minutes) 30 Treatment Tolerance Good Treatment Comments during soft tissue work to left breast PT-OP-T Assessment and Plan Start: 01/25/23 16:40 Freq: Status: Active Protocol: Document 03/22/23 13:15 [facility] (Rec: 03/22/23 13:43 [facility] [id number]) Physical Therapy Assessment Impairments Impairments Edema,ROM,Soft Tissue Mobility Goals Three Impairment lymphedema life impact scale [employer] Technician Goal (LTG) decrease by at least 50% as measure of improved quality of life 03/15/23: goal progress LTG Duration 04/28/23 Two Impairment decreased left UE ROM Short Term Goal (STG) Patient to be instructed in ROM exercises for left UE STG Duration goal met Senior Care Goal (LTG) Patient to demonstrate full active ROM left UE and be able to return to normal use of her left UE for all activities LTG Duration 04/28/23 One Impairment lymphedema left UE and breast Short Term Goal (STG) Patient to be instructed in all aspects of lymphedema care to include skin care, precautions, MLD, lymphedema exercises, compression STG Duration goal met Senior Care Goal (LTG) Decrease lymphedema to a stable level (no increase or decrease greater than 1 cm over the course of 1 week), patient to obtain appropriate and effective compression garments for breast and left UE, and demonstrate good understanding of all aspects of self-care for lymphedema 03/15/23: good goal progress LTG Duration 04/28/23 Assessment Summary Assessment Improved application and fit of pt compression with noted improvement in circumferential measurements. New sleeve received today but patient hasn't put on yet as already had old one without silicone top on for the day. Physical Therapy Plan Frequency and Duration Frequency of Treatment 20 visits Duration of treatment (weeks) 12 Plan of Care Start Date 01/26/23 Plan of Care End Date 04/28/23 Therapeutic Interventions Therapeutic Interventions Lymphedema Management,Manual Therapy,Patient/Caregiver Education,Self-Care/Home Management,Taping,Therapeutic Exercises Next Visit Focus/Plan Next Note Type Treatment Note Next Visit Plan Continue lymphedema management , shoulder ROM, manual techniques for improved soft tissue lengthening and pliabilitiy
--- NOTE | 2023-03-24 14:04 | PT.OTN ---
Current Diagnoses Malignant neoplasm of unspecified site of unspecified female breast (03/24/23) Secondary and unspecified malignant neoplasm of axilla and upper limb lymph nodes (03/24/23) Lymphedema, not elsewhere classified (03/24/23) Physical Therapy Treatment Note PT-OP-A Visit Information Start: 01/25/23 16:40 Freq: Status: Active Protocol: Document 03/24/23 13:17 SAK (Rec: 03/24/23 13:34 [facility] [id number]) Out-Patient Physical Therapy Visit Information Visit Information Visit Type Treatment Note Visit Start Time 13:17 Visit Stop Time 15:44 Total Visit Minutes 88 Visit Number 17 PT-OP-B Current Condition Start: 01/25/23 16:40 Freq: Status: Active Protocol: Document 03/24/23 13:17 SAK (Rec: 03/24/23 13:34 [facility] [id number]) Current Condition History of Current Condition Onset Date 1 month Current Complaints lymphedema left UE and breast History of Current Condition 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 Has had radiation and chemotherapy completed in 2021. Reports when getting her port flushed 1 month ago the nurse noticed swelling in her left UE, also identified in her left breast. Patient denies pain or other symptoms except reporting bruising left under arm area which is new and she is going to have an ultrasound and mammogram on 01/31/23. Reports some stiffness left UE with decreased ability to use for usual activities. Not currently doing any exercises; states was not given any to do after surgery. Prior Treatments and Tests chemotherapy radiation immunotherapy Future Testing and Treatments Planned Ultrasound and mammogram due to bruised area left axillary region. PT-OP-C Subjective Start: 01/25/23 16:40 Freq: Status: Active Protocol: Document 03/24/23 13:17 SAK (Rec: 03/24/23 13:34 [facility] [id number]) OP-PT Subjective Patient Comments Patient Comments Dr. Almazan agrees with Dr. Clifford need to have spot on chest (cyst) removed and results of biopsy not back yet . Has appointment next Tuesday with Dr. Shaw. Apr [address] Almazan. Got new compression sleeve with silicone at top. PT-OP-F Manual Assessment Start: 01/25/23 16:40 Freq: Status: Active Protocol: Document 01/26/23 10:30 SAK (Rec: 01/26/23 17:06 SAK [id number]) Manual Assessments Soft Tissue Assessment Soft Tissue Mobility Assessment peau d'orange skin changes left breast. Noted significant bruises with induration lateral left breast and subaxillary region with are palpable soft tissue nodules same region PT-OP-H Neuro Start: 01/25/23 16:40 Freq: Status: Active Protocol: Document 01/26/23 10:30 SAK (Rec: 01/26/23 17:06 SAK [id number]) Sensation Evaluation Gross Sensation Gross Sensation WNL PT-OP-J Posture/Palpation/Skin Start: 01/25/23 16:40 Freq: Status: Active Protocol: Document 01/26/23 10:30 SAK (Rec: 01/26/23 17:06 SAK [id number]) Posture Evaluation Position Sitting Head/C-Spine Posture Forward Head T-Spine Posture Increased Kyphosis Shoulder Posture (L) Rounded,(R) Rounded Arm Posture (L) Internally Rotated,(R) Internally Rotated Skin Assessment Edema Assessment left UE and breast Edema Appearance Discolored,Puffy Subjective Edema Description Tightness PT-OP-K Range of Motion Start: 01/25/23 16:40 Freq: Status: Active Protocol: Document 01/26/23 10:30 SAK (Rec: 01/26/23 17:06 [facility] [id number]) Shoulder Goniometric Range of Motion Shoulder Left Active Shoulder ROM WFL No Flexion 135 Extension 25 Abduction 150 External Rotation at 0 degrees Abduction 45 Internal Rotation 40 Internal Rotation Behind Back (text) lateral hip Right Active Shoulder ROM WFL Yes Shoulder ROM Limitations Shoulder ROM Limitations Soft Tissue Tightness,Pain, Swelling Elbow/Forearm Range of Motion Elbow/Forearm kiesha Elbow/Forearm ROM WFL Yes PT-OP-N Lymphedema Start: 01/25/23 16:40 Freq: Status: Active Protocol: Document 03/24/23 13:17 SAK (Rec: 03/24/23 13:34 [facility]AK [id number]) Lymphedema Measurements Upper Extremity Circumference Measurements Left Affected MCP 19.5 cm Dorsum of Hand 20 cm Wrist 17.8 cm 5 cm From Wrist Crease 21.2 cm 10 cm From Wrist Crease 24.5 cm 15 cm From Wrist Crease 27.3 cm 20 cm From Wrist Crease 28.2 cm 25 cm From Wrist Crease 28.5 cm 30 cm From Wrist Crease 33.7 cm 35 cm From Wrist Crease 35 cm 40 cm From Wrist Crease 36.8 cm 45 cm From Wrist Crease 36.9 cm Elbow Joint 28.5 cm PT-OP-Q Treatments Start: 01/25/23 16:40 Freq: Status: Active Protocol: Document 03/24/23 13:17 [facility] (Rec: 03/24/23 13:34 [facility] [id number]) Cardio Equipment Recumbent Stepper (Sci-Fit) Duration (Minutes) 5 Resistance 1 Seat Position 11 Other to facilitate lymphatic flow after bandaging Therapeutic Exercises Supine Exercises pec stretch Reps/Minutes 2x30 I, Y, T stretches Equipment Used cane Reps/Minutes 5x AROM f/b end-range stretch Sidelying Exercises open book Reps/Minutes 5x circles Reps/Minutes 5x Sitting Exercises pulleys Sitting Exercise Name flexion, scaption Side left Equipment Used pulleys Reps/Minutes 10x ea Lymphedema Treatment Manual Lymphatic Drainage Location for left UE lymphedema, left breast including massage of fibrotic areas Duration 45 Comments focus on AAA and AAF pathways, manual treatment to fibrotic tissue in breast and forearm Lymphedema Wrapping Other assisted patient in donning gauntlet and compression sleeve Compression Garment Assessment Compression Garment Assessment Details Good fit of new compression sleeve, silicone helping it to stay up higher, measurements either stable or dec. Patient Education Compression Garments as above PT-OP-R Modalities Start: 01/25/23 16:40 Freq: Status: Active Protocol: Document 03/24/23 13:17 [facility] (Rec: 03/24/23 13:34 [facility] [id number]) Compression Pump Treatment Treatment Location left UE Pressure Amount (mmHg) (mmHG) 35 Inflation Time (Seconds) 30 Deflation Time (Seconds) 10 Treatment Duration (minutes) 30 Treatment Tolerance Good Treatment Comments during soft tissue work to left breast PT-OP-T Assessment and Plan Start: 01/25/23 16:40 Freq: Status: Active Protocol: Document 03/24/23 13:17 [facility] (Rec: 03/24/23 13:34 [facility] [id number]) Physical Therapy Assessment Impairments Impairments Edema,ROM,Soft Tissue Mobility Goals Three Impairment lymphedema life impact scale Correction Goal (LTG) decrease by at least 50% as measure of improved quality of life 03/15/23: goal progress LTG Duration 04/28/23 Two Impairment decreased left UE ROM Short Term Goal (STG) Patient to be instructed in ROM exercises for left UE STG Duration goal met Correction Goal (LTG) Patient to demonstrate full active ROM left UE and be able to return to normal use of her left UE for all activities LTG Duration 04/28/23 One Impairment lymphedema left UE and breast Short Term Goal (STG) Patient to be instructed in all aspects of lymphedema care to include skin care, precautions, MLD, lymphedema exercises, compression STG Duration goal met Correction Goal (LTG) Decrease lymphedema to a stable level (no increase or decrease greater than 1 cm over the course of 1 week), patient to obtain appropriate and effective compression garments for breast and left UE, and demonstrate good understanding of all aspects of self-care for lymphedema 03/15/23: good goal progress LTG Duration 04/28/23 Assessment Summary Assessment Improved fit of new compression sleeve, wider band at wrist and staying up higher. Fibrosis at left breast improves with manual treatment and new chip bag. Physical Therapy Plan Frequency and Duration Frequency of Treatment 20 visits Duration of treatment (weeks) 12 Plan of Care Start Date 01/26/23 Plan of Care End Date 04/28/23 Therapeutic Interventions Therapeutic Interventions Lymphedema Management,Manual Therapy,Patient/Caregiver Education,Self-Care/Home Management,Taping,Therapeutic Exercises Next Visit Focus/Plan Next Note Type Treatment Note Next Visit Plan Continue lymphedema management , shoulder ROM, manual techniques for improved soft tissue lengthening and pliabilitiy
--- NOTE | 2023-03-29 15:47 | PT.OTN ---
Current Diagnoses Malignant neoplasm of unspecified site of unspecified female breast (03/29/23) Secondary and unspecified malignant neoplasm of axilla and upper limb lymph nodes (03/29/23) Lymphedema, not elsewhere classified (03/29/23) Physical Therapy Treatment Note PT-OP-A Visit Information Start: 01/25/23 16:40 Freq: Status: Active Protocol: Document 03/29/23 13:15 SAK (Rec: 03/29/23 14:05 [facility] [id number]) Out-Patient Physical Therapy Visit Information Visit Information Visit Type Treatment Note Visit Start Time 13:15 Visit Stop Time 15:44 Total Visit Minutes 88 Visit Number 18 PT-OP-B Current Condition Start: 01/25/23 16:40 Freq: Status: Active Protocol: Document 03/29/23 13:15 SAK (Rec: 03/29/23 14:05 [facility] [id number]) Current Condition History of Current Condition Onset Date 1 month Current Complaints lymphedema left UE and breast History of Current Condition 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 Has had radiation and chemotherapy completed in 2021. Reports when getting her port flushed 1 month ago the nurse noticed swelling in her left UE, also identified in her left breast. Patient denies pain or other symptoms except reporting bruising left under arm area which is new and she is going to have an ultrasound and mammogram on 01/31/23. Reports some stiffness left UE with decreased ability to use for usual activities. Not currently doing any exercises; states was not given any to do after surgery. Prior Treatments and Tests chemotherapy radiation immunotherapy Future Testing and Treatments Planned Ultrasound and mammogram due to bruised area left axillary region. PT-OP-C Subjective Start: 01/25/23 16:40 Freq: Status: Active Protocol: Document 03/29/23 13:15 SAK (Rec: 03/29/23 14:05 [facility] [id number]) OP-PT Subjective Patient Comments Patient Comments No new c/o, cont to wear compression sleeve and glove. Still not full motion left UE . Sees Dr. Shaw tomorrow. PT-OP-F Manual Assessment Start: 01/25/23 16:40 Freq: Status: Active Protocol: Document 01/26/23 10:30 SAK (Rec: 01/26/23 17:06 [facility] [id number]) Manual Assessments Soft Tissue Assessment Soft Tissue Mobility Assessment peau d'orange skin changes left breast. Noted significant bruises with induration lateral left breast and subaxillary region with are palpable soft tissue nodules same region PT-OP-H Neuro Start: 01/25/23 16:40 Freq: Status: Active Protocol: Document 01/26/23 10:30 SAK (Rec: 01/26/23 17:06 [facility] [id number]) Sensation Evaluation Gross Sensation Gross Sensation WNL PT-OP-J Posture/Palpation/Skin Start: 01/25/23 16:40 Freq: Status: Active Protocol: Document 01/26/23 10:30 SAK (Rec: 01/26/23 17:06 [facility]AK [id number]) Posture Evaluation Position Sitting Head/C-Spine Posture Forward Head T-Spine Posture Increased Kyphosis Shoulder Posture (L) Rounded,(R) Rounded Arm Posture (L) Internally Rotated,(R) Internally Rotated Skin Assessment Edema Assessment left UE and breast Edema Appearance Discolored,Puffy Subjective Edema Description Tightness PT-OP-K Range of Motion Start: 01/25/23 16:40 Freq: Status: Active Protocol: Document 01/26/23 10:30 SAK (Rec: 01/26/23 17:06 [facility]AK [id number]) Shoulder Goniometric Range of Motion Shoulder Left Active Shoulder ROM WFL No Flexion 135 Extension 25 Abduction 150 External Rotation at 0 degrees Abduction 45 Internal Rotation 40 Internal Rotation Behind Back (text) lateral hip Right Active Shoulder ROM WFL Yes Shoulder ROM Limitations Shoulder ROM Limitations Soft Tissue Tightness,Pain, Swelling Elbow/Forearm Range of Motion Elbow/Forearm kiesha Elbow/Forearm ROM WFL Yes PT-OP-N Lymphedema Start: 01/25/23 16:40 Freq: Status: Active Protocol: Document 03/29/23 13:15 SAK (Rec: 03/29/23 14:05 [facility] [id number]) Lymphedema Measurements Upper Extremity Circumference Measurements Left Affected - not measured today PT-OP-Q Treatments Start: 01/25/23 16:40 Freq: Status: Active Protocol: Document 03/29/23 13:15 SAK (Rec: 03/29/23 14:05 [facility] [id number]) Cardio Equipment Recumbent Stepper (Sci-Fit) Duration (Minutes) 5 Resistance 1 Seat Position 11 Other to facilitate lymphatic flow after bandaging Therapeutic Exercises Supine Exercises pec stretch Reps/Minutes 2x30 I, Y, T stretches Equipment Used cane Reps/Minutes 5x AROM f/b end-range stretch Sitting Exercises pulleys Sitting Exercise Name flexion, scaption Side left Equipment Used pulleys Reps/Minutes 10x ea Standing Exercises wall slide Reps/Minutes 5x10 kitchen sink stretch Reps/Minutes 2x30 Manual Therapy Treatment Soft Tissue Mobilization UT Comments too tender rhomboids Mobilization Type Strumming,Sustained Pressure Joint Mobilizations scapula Joint sup,inf, ab,add Grade III Body Position Sidelying Comments with patient at rest, and with shld flex and abduction Lymphedema Treatment Manual Lymphatic Drainage Location for left UE lymphedema, left breast including massage of fibrotic areas Duration 45 Comments focus on AAA and AAF pathways, manual treatment to fibrotic tissue in breast and forearm Lymphedema Wrapping Other assisted patient in donning gauntlet and compression sleeve PT-OP-R Modalities Start: 01/25/23 16:40 Freq: Status: Active Protocol: Document 03/29/23 13:15 [facility] (Rec: 03/29/23 14:05 [facility] [id number]) Compression Pump Treatment Treatment Location left UE Pressure Amount (mmHg) (mmHG) 35 Inflation Time (Seconds) 30 Deflation Time (Seconds) 10 Treatment Duration (minutes) 30 Treatment Tolerance Good Treatment Comments during soft tissue work to left breast PT-OP-T Assessment and Plan Start: 01/25/23 16:40 Freq: Status: Active Protocol: Document 03/29/23 13:15 [facility] (Rec: 03/29/23 14:05 [facility] [id number]) Physical Therapy Assessment Impairments Impairments Edema,ROM,Soft Tissue Mobility Goals Three Impairment lymphedema life impact scale Carburizing Furnace Operator Goal (LTG) decrease by at least 50% as measure of improved quality of life 03/15/23: goal progress LTG Duration 04/28/23 Two Impairment decreased left UE ROM Short Term Goal (STG) Patient to be instructed in ROM exercises for left UE STG Duration goal met Carburizing Furnace Operator Goal (LTG) Patient to demonstrate full active ROM left UE and be able to return to normal use of her left UE for all activities LTG Duration 04/28/23 One Impairment lymphedema left UE and breast Short Term Goal (STG) Patient to be instructed in all aspects of lymphedema care to include skin care, precautions, MLD, lymphedema exercises, compression STG Duration goal met Prison Goal (LTG) Decrease lymphedema to a stable level (no increase or decrease greater than 1 cm over the course of 1 week), patient to obtain appropriate and effective compression garments for breast and left UE, and demonstrate good understanding of all aspects of self-care for lymphedema 03/15/23: good goal progress LTG Duration 04/28/23 Assessment Summary Assessment Use of channel foam on forearm in pump beneficial, encouraged patient to consider bandaging at night with channel foam at forearm and to use when receives pump for home use. Patient has impingement symptoms left UE limiting her ROM, increased manual treatment to shoulder and scapula to improve ROM and mechanics. Patient highly compliant to wearing glove and gauntlet. Physical Therapy Plan Frequency and Duration Frequency of Treatment 20 visits Duration of treatment (weeks) 12 Plan of Care Start Date 01/26/23 Plan of Care End Date 04/28/23 Therapeutic Interventions Therapeutic Interventions Lymphedema Management,Manual Therapy,Patient/Caregiver Education,Self-Care/Home Management,Taping,Therapeutic Exercises Next Visit Focus/Plan Next Note Type Treatment Note Next Visit Plan Continue lymphedema management , shoulder ROM, manual techniques for improved soft tissue lengthening and pliabilitiy, joint mobilization and shoulder mechanics for improved left UE function.
--- NOTE | 2023-03-31 14:34 | PT.OTN ---
Current Diagnoses Malignant neoplasm of unspecified site of unspecified female breast (03/31/23) Secondary and unspecified malignant neoplasm of axilla and upper limb lymph nodes (03/31/23) Lymphedema, not elsewhere classified (03/31/23) Physical Therapy Treatment Note PT-OP-A Visit Information Start: 01/25/23 16:40 Freq: Status: Active Protocol: Document 03/29/23 13:15 SAK (Rec: 03/29/23 14:05 [facility] [id number]) Out-Patient Physical Therapy Visit Information Visit Information Visit Type Treatment Note Visit Start Time 13:15 Visit Stop Time 15:44 Total Visit Minutes 88 Visit Number 18 PT-OP-B Current Condition Start: 01/25/23 16:40 Freq: Status: Active Protocol: Document 03/29/23 13:15 SAK (Rec: 03/29/23 14:05 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 Has had radiation and chemotherapy completed in 2021. Reports when getting her port flushed 1 month ago the nurse noticed swelling in her left UE, also identified in her left breast. Patient denies pain or other symptoms except reporting bruising left under arm area which is new and she is going to have an ultrasound and mammogram on 01/31/23. Reports some stiffness left UE with decreased ability to use for usual activities. Not currently doing any exercises; states was not given any to do after surgery. Prior Treatments and Tests chemotherapy radiation immunotherapy Future Testing and Treatments Planned Ultrasound and mammogram due to bruised area left axillary region. PT-OP-C Subjective Start: 01/25/23 16:40 Freq: Status: Active Protocol: Document 03/29/23 13:15 SAK (Rec: 03/29/23 14:05 [facility] [id number]) OP-PT Subjective Patient Comments Patient Comments No new c/o, cont to wear compression sleeve and glove. Still not full motion left UE . Sees Dr. Shaw tomorrow. PT-OP-F Manual Assessment Start: 01/25/23 16:40 Freq: Status: Active Protocol: Document 01/26/23 10:30 SAK (Rec: 01/26/23 17:06 [facility] [id number]) Manual Assessments Soft Tissue Assessment Soft Tissue Mobility Assessment peau d'orange skin changes left breast. Noted significant bruises with induration lateral left breast and subaxillary region with are palpable soft tissue nodules same region PT-OP-H Neuro Start: 01/25/23 16:40 Freq: Status: Active Protocol: Document 01/26/23 10:30 SAK (Rec: 01/26/23 17:06 [facility]AK [id number]) Sensation Evaluation Gross Sensation Gross Sensation WNL PT-OP-J Posture/Palpation/Skin Start: 01/25/23 16:40 Freq: Status: Active Protocol: Document 01/26/23 10:30 SAK (Rec: 01/26/23 17:06 [facility] [id number]) Posture Evaluation Position Sitting Head/C-Spine Posture Forward Head T-Spine Posture Increased Kyphosis Shoulder Posture (L) Rounded,(R) Rounded Arm Posture (L) Internally Rotated,(R) Internally Rotated Skin Assessment Edema Assessment left UE and breast Edema Appearance Discolored,Puffy Subjective Edema Description Tightness PT-OP-K Range of Motion Start: 01/25/23 16:40 Freq: Status: Active Protocol: Document 01/26/23 10:30 SAK (Rec: 01/26/23 17:06 [facility]AK [id number]) Shoulder Goniometric Range of Motion Shoulder Left Active Shoulder ROM WFL No Flexion 135 Extension 25 Abduction 150 External Rotation at 0 degrees Abduction 45 Internal Rotation 40 Internal Rotation Behind Back (text) lateral hip Right Active Shoulder ROM WFL Yes Shoulder ROM Limitations Shoulder ROM Limitations Soft Tissue Tightness,Pain, Swelling Elbow/Forearm Range of Motion Elbow/Forearm kiesha Elbow/Forearm ROM WFL Yes PT-OP-N Lymphedema Start: 01/25/23 16:40 Freq: Status: Active Protocol: Document 03/29/23 13:15 SAK (Rec: 03/29/23 14:05 [facility] [id number]) Lymphedema Measurements Upper Extremity Circumference Measurements Left Affected - not measured today PT-OP-Q Treatments Start: 01/25/23 16:40 Freq: Status: Active Protocol: Document 03/29/23 13:15 SAK (Rec: 03/29/23 14:05 [facility] [id number]) Cardio Equipment Recumbent Stepper (Sci-Fit) Duration (Minutes) 5 Resistance 1 Seat Position 11 Other to facilitate lymphatic flow after bandaging Therapeutic Exercises Supine Exercises pec stretch Reps/Minutes 2x30 I, Y, T stretches Equipment Used cane Reps/Minutes 5x AROM f/b end-range stretch Sitting Exercises pulleys Sitting Exercise Name flexion, scaption Side left Equipment Used pulleys Reps/Minutes 10x ea Standing Exercises wall slide Reps/Minutes 5x10 kitchen sink stretch Reps/Minutes 2x30 Manual Therapy Treatment Soft Tissue Mobilization [place] Comments too tender rhomboids Mobilization Type Strumming,Sustained Pressure Joint Mobilizations scapula Joint sup,inf, ab,add Grade III Body Position Sidelying Comments with patient at rest, and with shld flex and abduction Lymphedema Treatment Manual Lymphatic Drainage Location for left UE lymphedema, left breast including massage of fibrotic areas Duration 45 Comments focus on AAA and AAF pathways, manual treatment to fibrotic tissue in breast and forearm Lymphedema Wrapping Other assisted patient in donning gauntlet and compression sleeve PT-OP-R Modalities Start: 01/25/23 16:40 Freq: Status: Active Protocol: Document 03/29/23 13:15 [facility] (Rec: 03/29/23 14:05 [facility] [id number]) Compression Pump Treatment Treatment Location left UE Pressure Amount (mmHg) (mmHG) 35 Inflation Time (Seconds) 30 Deflation Time (Seconds) 10 Treatment Duration (minutes) 30 Treatment Tolerance Good Treatment Comments during soft tissue work to left breast PT-OP-T Assessment and Plan Start: 01/25/23 16:40 Freq: Status: Active Protocol: Document 03/29/23 13:15 [facility] (Rec: 03/29/23 14:05 [facility] [id number]) Physical Therapy Assessment Impairments Impairments Edema,ROM,Soft Tissue Mobility Goals Three Impairment lymphedema life impact scale Blade Filer Goal (LTG) decrease by at least 50% as measure of improved quality of life 03/15/23: goal progress LTG Duration 04/28/23 Two Impairment decreased left UE ROM Short Term Goal (STG) Patient to be instructed in ROM exercises for left UE STG Duration goal met Blade Filer Goal (LTG) Patient to demonstrate full active ROM left UE and be able to return to normal use of her left UE for all activities LTG Duration 04/28/23 One Impairment lymphedema left UE and breast Short Term Goal (STG) Patient to be instructed in all aspects of lymphedema care to include skin care, precautions, MLD, lymphedema exercises, compression STG Duration goal met Mcc Goal (LTG) Decrease lymphedema to a stable level (no increase or decrease greater than 1 cm over the course of 1 week), patient to obtain appropriate and effective compression garments for breast and left UE, and demonstrate good understanding of all aspects of self-care for lymphedema 03/15/23: good goal progress LTG Duration 04/28/23 Assessment Summary Assessment Use of channel foam on forearm in pump beneficial, encouraged patient to consider bandaging at night with channel foam at forearm and to use when receives pump for home use. Patient has impingement symptoms left UE limiting her ROM, increased manual treatment to shoulder and scapula to improve ROM and mechanics. Patient highly compliant to wearing glove and gauntlet. Physical Therapy Plan Frequency and Duration Frequency of Treatment 20 visits Duration of treatment (weeks) 12 Plan of Care Start Date 01/26/23 Plan of Care End Date 04/28/23 Therapeutic Interventions Therapeutic Interventions Lymphedema Management,Manual Therapy,Patient/Caregiver Education,Self-Care/Home Management,Taping,Therapeutic Exercises Next Visit Focus/Plan Next Note Type Treatment Note Next Visit Plan Continue lymphedema management , shoulder ROM, manual techniques for improved soft tissue lengthening and pliabilitiy, joint mobilization and shoulder mechanics for improved left UE function.
--- NOTE | 2023-04-07 14:35 | PT.OTRE ---
Current Diagnoses Malignant neoplasm of unspecified site of unspecified female breast (04/07/23) Secondary and unspecified malignant neoplasm of axilla and upper limb lymph nodes (04/07/23) Lymphedema, not elsewhere classified (04/07/23) Past Medical History (Last Reviewed 03/30/23 @ 16:02 by Brown Erickson RN) Anemia Carpal tunnel syndrome (Unknown) Cirrhosis Diverticular disease (Unknown) Gross hematuria History of urinary tract infection Hyperglycemia (Unknown) Hyperlipemia (Unknown) Hypertension (Unknown) Immunotherapy 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Lesion of bladder Medicare annual wellness visit, subsequent EASTON (nonalcoholic steatohepatitis) (10/2014) 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 Pulmonary nodule Right hip pain Skin lesion Splenomegaly Strain of tendon of left rotator cuff Well adult exam Surgical History (Last Reviewed 03/30/23 @ 16:02 by Brown Erickson RN) H/O right wrist surgery History of carpal tunnel release (Unknown) History of partial mastectomy of left breast (07/29/21) History of surgery Hx of appendectomy (Unknown) Hx of cataract surgery (Unknown) Hx of cholecystectomy Hx of eye surgery Status post cholecystectomy Visit Care Team Role Provider Type Darion Clifford DO Family Provider Physician Primary Care Provider Specialty: Family Practice Address: [address] [place] [address], [address] Email: [email or web address] Nano Naik [email or web address] Attending Provider Physician Referring Provider Specialty: Oncology Address: [address] [place] [address], [address] Email: [email or web address] Physical Therapy Re-Evaluation PT-OP-A Visit Information Start: 01/25/23 16:40 Freq: Status: Active Protocol: Document 04/07/23 13:17 NIKOLAI (Rec: 04/07/23 14:35 SAK [id number]) Out-Patient Physical Therapy Visit Information Visit Information Visit Type Treatment Note Visit Start Time 13:18 Visit Stop Time 14:23 Total Visit Minutes 68 Visit Number 20 PT-OP-B Current Condition Start: 01/25/23 16:40 Freq: Status: Active Protocol: Document 04/07/23 13:17 SAK (Rec: 04/07/23 14:35 [facility] [id number]) Current Condition History of Current Condition Onset Date 1 month Current Complaints lymphedema left UE and breast History of Current Condition 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 Has had radiation and chemotherapy completed in 2021. Reports when getting her port flushed 1 month ago the nurse noticed swelling in her left UE, also identified in her left breast. Patient denies pain or other symptoms except reporting bruising left under arm area which is new and she is going to have an ultrasound and mammogram on 01/31/23. Reports some stiffness left UE with decreased ability to use for usual activities. Not currently doing any exercises; states was not given any to do after surgery. Prior Treatments and Tests chemotherapy radiation immunotherapy Future Testing and Treatments Planned Ultrasound and mammogram due to bruised area left axillary region. PT-OP-C Subjective Start: 01/25/23 16:40 Freq: Status: Active Protocol: Document 04/07/23 13:17 SAK (Rec: 04/07/23 14:35 [facility] [id number]) OP-PT Subjective Patient Comments Patient Comments Sees Dr. Naik tomorrow. No new c/o. PT-OP-F Manual Assessment Start: 01/25/23 16:40 Freq: Status: Active Protocol: Document 01/26/23 10:30 SAK (Rec: 01/26/23 17:06 [facility] [id number]) Manual Assessments Soft Tissue Assessment Soft Tissue Mobility Assessment peau d'orange skin changes left breast. Noted significant bruises with induration lateral left breast and subaxillary region with are palpable soft tissue nodules same region PT-OP-H Neuro Start: 01/25/23 16:40 Freq: Status: Active Protocol: Document 01/26/23 10:30 SAK (Rec: 01/26/23 17:06 [facility] [id number]) Sensation Evaluation Gross Sensation Gross Sensation WNL PT-OP-J Posture/Palpation/Skin Start: 01/25/23 16:40 Freq: Status: Active Protocol: Document 01/26/23 10:30 SAK (Rec: 01/26/23 17:06 [facility] [id number]) Posture Evaluation Position Sitting Head/C-Spine Posture Forward Head T-Spine Posture Increased Kyphosis Shoulder Posture (L) Rounded,(R) Rounded Arm Posture (L) Internally Rotated,(R) Internally Rotated Skin Assessment Edema Assessment left UE and breast Edema Appearance Discolored,Puffy Subjective Edema Description Tightness PT-OP-K Range of Motion Start: 01/25/23 16:40 Freq: Status: Active Protocol: Document 01/26/23 10:30 [facility] (Rec: 01/26/23 17:06 [facility] [id number]) Shoulder Goniometric Range of Motion Shoulder Measured in Degrees Left Active Shoulder ROM WFL No Flexion 135 Extension 25 Abduction 150 External Rotation at 0 degrees Abduction 45 Internal Rotation 40 Internal Rotation Behind Back (text) lateral hip Right Active Shoulder ROM WFL Yes Shoulder ROM Limitations Shoulder ROM Limitations Soft Tissue Tightness,Pain, Swelling Elbow/Forearm Range of Motion Elbow/Forearm Measured in Degrees kiesha Elbow/Forearm ROM WFL Yes PT-OP-N Lymphedema Start: 01/25/23 16:40 Freq: Status: Active Protocol: Document 04/07/23 13:17 [facility] (Rec: 04/07/23 14:35 [facility] [id number]) Lymphedema Measurements Upper Extremity Circumference Measurements Left Affected MCP 19.3 cm Dorsum of Hand 19.6 cm Wrist 17.5 cm 5 cm From Wrist Crease 21.8 cm 10 cm From Wrist Crease 24.7 cm 15 cm From Wrist Crease 26.9 cm 20 cm From Wrist Crease 28 cm 25 cm From Wrist Crease 30.5 cm 30 cm From Wrist Crease 35.3 cm 35 cm From Wrist Crease 36.5 cm 40 cm From Wrist Crease 35.8 cm 45 cm From Wrist Crease 37.1 cm Elbow Joint 29 cm PT-OP-Q Treatments Start: 01/25/23 16:40 Freq: Status: Active Protocol: Document 04/07/23 13:17 [facility] (Rec: 04/07/23 14:35 [facility] [id number]) Therapeutic Exercises Supine Exercises pec stretch Reps/Minutes 2x30 Comments cues for use of pillows under arms if too much stretch I, Y, T stretches Equipment Used cane Reps/Minutes 5x AROM f/b end-range stretch Comments cues for use of pillows under arms if too much stretch Sitting Exercises pulleys Sitting Exercise Name flexion, scaption Side left Equipment Used pulleys Reps/Minutes 10x ea Standing Exercises wall slide Reps/Minutes 5x10 kitchen sink stretch Reps/Minutes 2x30 Manual Therapy Treatment Joint Mobilizations scapula Joint sup,inf, ab,add Grade III Body Position Sidelying Comments with patient at rest, and with shld flex and abduction Lymphedema Treatment Manual Lymphatic Drainage Location for left UE lymphedema, Duration 45 Comments focus on AAA and AAF pathways, manual treatment to fibrotic tissue in breast and forearm Lymphedema Wrapping Other assisted patient in donning gauntlet and compression sleeve PT-OP-R Modalities Start: 01/25/23 16:40 Freq: Status: Active Protocol: Document 04/07/23 13:17 [facility] (Rec: 04/07/23 14:35 [facility] [id number]) Compression Pump Treatment Treatment Location left UE Treatment Comments sleeve broken PT-OP-T Assessment and Plan Start: 01/25/23 16:40 Freq: Status: Active Protocol: Document 04/07/23 13:17 [facility] (Rec: 04/07/23 14:35 [facility] [id number]) Physical Therapy Assessment Impairments Impairments Edema,ROM,Soft Tissue Mobility Goals Three Impairment lymphedema life impact scale Correction Goal (LTG) decrease by at least 50% as measure of improved quality of life 03/15/23: goal progress 04/07/23: goal mostly met, dec 45% LTG Duration 04/28/23 Two Impairment decreased left UE ROM Short Term Goal (STG) Patient to be instructed in ROM exercises for left UE STG Duration goal met Correction Goal (LTG) Patient to demonstrate full active ROM left UE and be able to return to normal use of her left UE for all activities 04/07/23: goal mostly met, ROM WFL, patient independent with HEP LTG Duration 04/28/23 One Impairment lymphedema left UE and breast Short Term Goal (STG) Patient to be instructed in all aspects of lymphedema care to include skin care, precautions, MLD, lymphedema exercises, compression STG Duration goal met Filing Clerk Goal (LTG) Decrease lymphedema to a stable level (no increase or decrease greater than 1 cm over the course of 1 week), patient to obtain appropriate and effective compression garments for breast and left UE, and demonstrate good understanding of all aspects of self-care for lymphedema 03/15/23: good goal progress 04/07/23: mostly met, needs instruction in use of sequential pneumatic pump when arrives LTG Duration 04/28/23 Assessment Summary Assessment Circumferential measurements have decreased significantly since PT eval and treatment initiated, patient independent with wearing compression sleeve and glove, though circumferential measurements today showed some increase, cause uncertain though wearing first compression sleeve that doesn't fit as well and slides down. Left UE ROM has improved, not full but functional. Patient independent with HEP. Patient sequential pneumatic pump has not yet arrived from [facility]. Patient to see oncologist tomorrow to consult regarding potential metastasis and discuss plan. Feel patient would benefit from 1-2 further PT treatments to assure independence with set up and use of pump (if ok with physician given possible metastasis), and assure no trend of worsening of lymphedema prior to discharge to independent self-management of lymphedema. Physical Therapy Plan Frequency and Duration Frequency of Treatment 2 visits Duration of treatment (weeks) 4 Plan of Care Start Date 04/07/23 Plan of Care End Date 05/07/23 Therapeutic Interventions Therapeutic Interventions Lymphedema Management,Manual Therapy,Patient/Caregiver Education,Self-Care/Home Management,Taping,Therapeutic Exercises Next Visit Focus/Plan Next Note Type Treatment Note Next Visit Plan Train in use of pump when arrives, assure safety and independence with all aspects of lymphedema care. Discuss POC
--- NOTE | 2023-04-07 14:35 | PT.OPPOC ---
Physical, Occupational & Speech Therapy At [facility] Current Diagnoses Malignant neoplasm of unspecified site of unspecified female breast (04/07/23) Secondary and unspecified malignant neoplasm of axilla and upper limb lymph nodes (04/07/23) Lymphedema, not elsewhere classified (04/07/23) Visit Care Team Role Provider Type Darion Clifford DO Family Provider Physician Primary Care Provider Specialty: Family Practice Address: [address] [place] [address], [address] Email: [email or web address] Nano Naik MD Attending Provider Physician Referring Provider Specialty: Oncology Address: [address] [place] [address], [address] Email: [email or web address] Plan Of Care PT-OP-T Assessment and Plan Start: 01/25/23 16:40 Freq: Status: Active Protocol: Document 04/07/23 13:17 [facility]AK (Rec: 04/07/23 14:35 [facility] [id number]) Physical Therapy Assessment Impairments Impairments Edema,ROM,Soft Tissue Mobility Goals Three Impairment lymphedema life impact scale Fpc Goal (LTG) decrease by at least 50% as measure of improved quality of life 03/15/23: goal progress 04/07/23: goal mostly met, dec 45% LTG Duration 04/28/23 Two Impairment decreased left UE ROM Short Term Goal (STG) Patient to be instructed in ROM exercises for left UE STG Duration goal met Fpc Goal (LTG) Patient to demonstrate full active ROM left UE and be able to return to normal use of her left UE for all activities 04/07/23: goal mostly met, ROM WFL, patient independent with HEP LTG Duration 04/28/23 One Impairment lymphedema left UE and breast Short Term Goal (STG) Patient to be instructed in all aspects of lymphedema care to include skin care, precautions, MLD, lymphedema exercises, compression STG Duration goal met Vacuum Cleaner Mechanic Goal (LTG) Decrease lymphedema to a stable level (no increase or decrease greater than 1 cm over the course of 1 week), patient to obtain appropriate and effective compression garments for breast and left UE, and demonstrate good understanding of all aspects of self-care for lymphedema 03/15/23: good goal progress 04/07/23: mostly met, needs instruction in use of sequential pneumatic pump when arrives LTG Duration 04/28/23 Assessment Summary Assessment Circumferential measurements have decreased significantly since PT eval and treatment initiated, patient independent with wearing compression sleeve and glove, though circumferential measurements today showed some increase, cause uncertain though wearing first compression sleeve that doesn't fit as well and slides down. Left UE ROM has improved, not full but functional. Patient independent with HEP. Patient sequential pneumatic pump has not yet arrived from [facility]. Patient to see oncologist tomorrow to consult regarding potential metastasis and discuss plan. Feel patient would benefit from 1-2 further PT treatments to assure independence with set up and use of pump (if ok with physician given possible metastasis), and assure no trend of worsening of lymphedema prior to discharge to independent self-management of lymphedema. Physical Therapy Plan Frequency and Duration Frequency of Treatment 2 visits Duration of treatment (weeks) 4 Plan of Care Start Date 04/07/23 Plan of Care End Date 05/07/23 Therapeutic Interventions Therapeutic Interventions Lymphedema Management,Manual Therapy,Patient/Caregiver Education,Self-Care/Home Management,Taping,Therapeutic Exercises Next Visit Focus/Plan Next Note Type Treatment Note Next Visit Plan Train in use of pump when arrives, assure safety and independence with all aspects of lymphedema care. Discuss POC Plan of Care Dates Plan of Care Start Date 04/07/23 Plan of Care End Date 05/07/23 Electronically Signed by: Loere Wilburn, PT 04/07/23 1924 If you are in agreement with this Plan of Care, please return a signed and dated copy. I have reviewed this Plan of Care and certify that the skilled therapy services above are required to meet the patient?s needs. Physician Signature Date Printed Name and Credentials Clinical Instructor Signature Printed Name and Credentials
--- NOTE | 2023-05-05 16:25 | PT.OTN ---
Current Diagnoses Malignant neoplasm of unspecified site of unspecified female breast (05/05/23) Secondary and unspecified malignant neoplasm of axilla and upper limb lymph nodes (05/05/23) Lymphedema, not elsewhere classified (05/05/23) Physical Therapy Treatment Note PT-OP-A Visit Information Start: 01/25/23 16:40 Freq: Status: Active Protocol: Document 05/05/23 15:48 SAK (Rec: 05/05/23 16:25 [facility] [id number]) Out-Patient Physical Therapy Visit Information Visit Information Visit Type Discharge Summary Visit Start Time 15:45 Visit Stop Time 16:10 Total Visit Minutes 25 Visit Number 22 Evaluation Information Evaluation Date 01/26/23 PT-OP-B Current Condition Start: 01/25/23 16:40 Freq: Status: Active Protocol: Document 05/05/23 15:48 SAK (Rec: 05/05/23 16:25 [facility] [id number]) Current Condition History of Current Condition Onset Date 1 month Current Complaints lymphedema left UE and breast History of Current Condition 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 Has had radiation and chemotherapy completed in 2021. Reports when getting her port flushed 1 month ago the nurse noticed swelling in her left UE, also identified in her left breast. Patient denies pain or other symptoms except reporting bruising left under arm area which is new and she is going to have an ultrasound and mammogram on 01/31/23. Reports some stiffness left UE with decreased ability to use for usual activities. Not currently doing any exercises; states was not given any to do after surgery. Prior Treatments and Tests chemotherapy radiation immunotherapy Future Testing and Treatments Planned Ultrasound and mammogram due to bruised area left axillary region. PT-OP-C Subjective Start: 01/25/23 16:40 Freq: Status: Active Protocol: Document 05/05/23 15:48 SAK (Rec: 05/05/23 16:25 [facility] [id number]) OP-PT Subjective Patient Comments Patient Comments Patient appointment today for training in set up and use of Aeros sequential pneumatic pump. Patient daughter present PT-OP-F Manual Assessment Start: 01/25/23 16:40 Freq: Status: Active Protocol: Document 01/26/23 10:30 SAK (Rec: 01/26/23 17:06 [facility] [id number]) Manual Assessments Soft Tissue Assessment Soft Tissue Mobility Assessment peau d'orange skin changes left breast. Noted significant bruises with induration lateral left breast and subaxillary region with are palpable soft tissue nodules same region PT-OP-H Neuro Start: 01/25/23 16:40 Freq: Status: Active Protocol: Document 01/26/23 10:30 SAK (Rec: 01/26/23 17:06 [facility] [id number]) Sensation Evaluation Gross Sensation Gross Sensation WNL PT-OP-J Posture/Palpation/Skin Start: 01/25/23 16:40 Freq: Status: Active Protocol: Document 01/26/23 10:30 SAK (Rec: 01/26/23 17:06 [facility] [id number]) Posture Evaluation Position Sitting Head/C-Spine Posture Forward Head T-Spine Posture Increased Kyphosis Shoulder Posture (L) Rounded,(R) Rounded Arm Posture (L) Internally Rotated,(R) Internally Rotated Skin Assessment Edema Assessment left UE and breast Edema Appearance Discolored,Puffy Subjective Edema Description Tightness PT-OP-K Range of Motion Start: 01/25/23 16:40 Freq: Status: Active Protocol: Document 01/26/23 10:30 [facility]AK (Rec: 01/26/23 17:06 [facility]AK [id number]) Shoulder Goniometric Range of Motion Shoulder Left Active Shoulder ROM WFL No Flexion 135 Extension 25 Abduction 150 External Rotation at 0 degrees Abduction 45 Internal Rotation 40 Internal Rotation Behind Back (text) lateral hip Right Active Shoulder ROM WFL Yes Shoulder ROM Limitations Shoulder ROM Limitations Soft Tissue Tightness,Pain, Swelling Elbow/Forearm Range of Motion Elbow/Forearm keisha Elbow/Forearm ROM WFL Yes PT-OP-N Lymphedema Start: 01/25/23 16:40 Freq: Status: Active Protocol: Document 04/28/23 13:22 SAK (Rec: 04/28/23 14:02 [facility] [id number]) Lymphedema Measurements Upper Extremity Circumference Measurements Left Affected MCP 19.3 cm Dorsum of Hand 19.3 cm Wrist 17.5 cm 5 cm From Wrist Crease 21.8 cm 10 cm From Wrist Crease 24.5 cm 15 cm From Wrist Crease 26.5 cm 20 cm From Wrist Crease 27.3 cm 25 cm From Wrist Crease 29.7 cm 30 cm From Wrist Crease 32.7 cm 35 cm From Wrist Crease 34.5 cm 40 cm From Wrist Crease 34.4 cm 45 cm From Wrist Crease 35.9 cm Elbow Joint 28.6 cm PT-OP-Q Treatments Start: 01/25/23 16:40 Freq: Status: Active Protocol: Document 05/05/23 15:48 [facility] (Rec: 05/05/23 16:25 [facility] [id number]) Lymphedema Treatment Patient Education Other Set up and instruction in use of Airos 6 sequential pneumatic pump with ArmPlus sleeve (arm and trunk component). Patient and daughter demonstrated good understanding, pump was issued to them PT-OP-R Modalities Start: 01/25/23 16:40 Freq: Status: Active Protocol: Document 04/28/23 13:22 [facility]AK (Rec: 04/28/23 14:02 [facility] [id number]) Compression Pump Treatment Treatment Location left UE Pressure Amount (mmHg) (mmHG) 60 Inflation Time (Seconds) 30 Deflation Time (Seconds) 10 Treatment Duration (minutes) 60 PT-OP-T Assessment and Plan Start: 01/25/23 16:40 Freq: Status: Active Protocol: Document 05/05/23 15:48 [facility] (Rec: 05/05/23 16:25 [facility] [id number]) Physical Therapy Assessment Goals Three Impairment lymphedema life impact scale Jail Goal (LTG) decrease by at least 50% as measure of improved quality of life 03/15/23: goal progress 04/07/23: goal mostly met, dec 45% LTG Duration goal met Two Impairment decreased left UE ROM Short Term Goal (STG) Patient to be instructed in ROM exercises for left UE STG Duration goal met Agency Operator Goal (LTG) Patient to demonstrate full active ROM left UE and be able to return to normal use of her left UE for all activities 04/07/23: goal mostly met, ROM WFL, patient independent with HEP LTG Duration goal met One Impairment lymphedema left UE and breast Short Term Goal (STG) Patient to be instructed in all aspects of lymphedema care to include skin care, precautions, MLD, lymphedema exercises, compression STG Duration goal met Jail Goal (LTG) Decrease lymphedema to a stable level (no increase or decrease greater than 1 cm over the course of 1 week), patient to obtain appropriate and effective compression garments for breast and left UE, and demonstrate good understanding of all aspects of self-care for lymphedema 03/15/23: good goal progress 04/07/23: mostly met, needs instruction in use of sequential pneumatic pump when arrives LTG Duration goal met Assessment Summary Assessment Patient goals met. Issued sequential pneumatic pump today after training in set-up and use with daughter present ; they both demonstrated good understanding of use of the pump. Patient continues to be compliant to all aspects of lymphedema care and the pump will assist her in her home management. Physical Therapy Plan Discharge Physical Therapy Discharge Reasons Goals Met
== END 2023-05-09 14:55 | disposition home or self-care (01) ==
LOC: PHYS 15:45
PROVIDERS: Family Provider Family Medicine; PCP Family Medicine; Referring Provider Internal Medicine Hematology & Oncology; Visit Provider Internal Medicine Hematology & Oncology
DX: C50.919 Malignant neoplasm of unspecified site of unspecified female breast (principal); C77.3 Secondary and unspecified malignant neoplasm of axilla and upper limb lymph nodes; I89.0 Lymphedema, not elsewhere classified
CPT/HCPCS: 97016; 97110; 97140; 97163; 97535

== ENCOUNTER 2023-05-08 09:24 | Emergency (ER) | payer MEDICARE, SELFPAY ==
[2022-12-17 11:45] VITALS: BMI 29.8
[2023-05-08 09:42] VITALS: BP 136/63; PULSE 76; RESP 16; TEMP 36.7; O2SAT 97; BMI 28.2
[2023-05-08 10:21] LABS: Bacteria Urine Many (>30); RBC Urine 0-1/HPF (0-5/HPF); Squamous Epithelial Cell Urine 0-1 /HPF (0-5/HPF); WBC Urine >100/HPF (0-5/HPF)
[2023-05-08 10:22] LABS: Culture Indicated Urine Specimen Cultured
[2023-05-08 12:00] VITALS: BP 130/62; PULSE 68; RESP 16; O2SAT 99
--- NOTE | 2023-05-08 12:07 | ED.FEMALEGU ---
HPI - Female Genitourinary General Chief complaint: Urogenital-Female Stated complaint: thinks UTI Time Seen by Provider: 05/08/23 12:04 Source: patient Mode of arrival: Ambulatory Limitations: no limitations History of Present Illness HPI Narrative: Patient has experienced dysuria frequency for the past 2 days. She is no suprapubic pain. She is no back pain. She is no nausea, vomiting or diarrhea. She denies fever chills. She denies hematuria. She has 7 rate culture confirmed UTIs over the past 15 months. Organisms very, including E coli, Klebsiella, lactobacillus and Enterococcus. She is been evaluated by the urologist she is been on 2 courses of antibiotics consistently for 60 days. Symptoms persist. She is not diabetic. She is no vaginal symptoms. Related Data Home Medications Medication Instructions Recorded Confirmed multivitamin 1 tab PO DAILY ##0 12/01/10 04/21/23 acetaminophen 500 mg tablet 500 mg PO Q6H PRN Pain (Scale 04/06/19 04/21/23 (Tylenol Extra Strength) Score 1-3) Previous Rx's Medication Instructions Recorded blood-glucose meter #1 ea 10/06/21 lancets #200 ea 10/06/21 lidocaine-prilocaine 2.5 %-2.5 % 1 applic topical PRN PRN Pain #30 10/26/21 topical cream grams losartan 50 mg-hydrochlorothiazide See Rx Instructions .Route 09/28/22 12.5 mg tablet .COMPLEX #90 tabs ezetimibe 10 mg tablet See Rx Instructions .Route 10/26/22 .COMPLEX #90 tabs amlodipine 5 mg tablet 5 mg PO DAILY #90 tabs 12/20/22 blood sugar diagnostic (Blood #50 ea 12/20/22 Glucose Test strips) metformin 1,000 mg tablet 1,000 mg PO BID #180 tabs 12/20/22 Disabled Parking Permint #1 ea 02/21/23 sulfamethoxazole 800 1 tab PO BID 7 days #14 tabs 05/08/23 mg-trimethoprim 160 mg tablet (Bactrim DS) Allergies Allergy/AdvReac Type Severity Reaction Status Date / Time No Known Drug Allergies Allergy Verified 04/21/23 13:42 Review of Systems Review of Systems ROS Unobtainable: All systems reviewed & are unremarkable except as noted in HPI and below Patient History Medical History Skin lesion Anemia Medicare annual wellness visit, subsequent Well adult exam Immunotherapy History of urinary tract infection Lesion of bladder Pulmonary nodule Gross hematuria Cirrhosis Splenomegaly 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Osteoarthritis of left shoulder Right hip pain Strain of tendon of left rotator cuff 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[place] (nonalcoholic steatohepatitis) (10/2014) Hyperglycemia (Unknown) Diverticular disease (Unknown) Carpal tunnel syndrome (Unknown) Hyperlipemia (Unknown) Hypertension (Unknown) Surgical History History of partial mastectomy of left breast (07/29/21) Hx of eye surgery History of surgery H/O right wrist surgery Hx of cholecystectomy Hx of cataract surgery (Unknown) Hx of appendectomy (Unknown) History of carpal tunnel release (Unknown) Status post cholecystectomy Family History Father Cancer Mother Cancer Other Carcinoma of upper-outer quadrant of left female breast alcohol intake frequency: 0-2 drinks per day Substance Use Type: does not use Exam Initial Vital Signs Initial Vital Signs: Vital Signs Temperature 98.0 F 05/08/23 09:42 Pulse Rate 76 05/08/23 09:42 Respiratory Rate 16 05/08/23 09:42 Blood Pressure 136/63 05/08/23 09:42 Pulse Oximetry 97 05/08/23 09:42 Oxygen Delivery Method Room Air 05/08/23 09:42 Const General: cooperative, healthy appearing and comfortable [facility] Head: normal to inspection and normocephalic Resp Auscultation: clear to auscultation bilaterally Cardio Rate: regular rate Rhythm: regular rhythm Heart Sounds: S1 normal, S2 normal and no murmurs GI Inspection: normal to inspection and non-distended Palpation: No tender Auscultation: normal bowel sounds Back/Spine/Pelvis Back: normal to inspection and No CVA tenderness Skin General: no rashes or lesions noted Neuro General: patient alert, patient awake and patient oriented x3 Extrem General: normal to inspection Psych Appearance: grossly normal and well kempt Course Orders Ordered: ED Orders 05/08/23 09:48 Urine Culture Stat Urine Microscopic Stat Discontinued Medications Trimethoprim/Sulfamethoxazole (Trimeth/Sulfa 160/800 (Ds) Tablet) 1 tab PO NOW ONE Stop: 05/08/23 12:13 Last Admin: 05/08/23 12:22 Dose: 1 tab Documented By: BREANNA Vital Signs Vital signs: Vital Signs - 8 hr 05/08/23 09:42 05/08/23 12:00 05/08/23 12:00 Temperature 98.0 F Pulse Rate 76 68 Respiratory Rate 16 16 Blood Pressure 136/63 130/62 Pulse Oximetry 97 99 Oxygen Delivery Method Room Air Room Air MDM - Female Genitourinary Lab Data Labs: Lab Results 05/08/23 Range/Units 09:48 Urine RBC 0-1/hpf (0-5/HPF) Urine WBC >100/hpf H (0-5/HPF) Ur Squamous Epith Cells 0-1 /hpf (0-5/HPF) Urine Bacteria Many (>30) H (None) Ur Culture Indicated? Specimen cultured Urine Dip Bedside Urine Glucose Negative Bedside Urine Bilirubin - Negative Bedside Urine Ketone - Negative Urine Specific [place] 1.015 Bedside Urine Occult Blood + Bedside Urine pH 6.0 Bedside Urine Protein +/- 15 Bedside Urine Urobilinogen - Negative Bedside Urine Nitrite + Positive Bedside Urine Leukocytes +++ 500 Esterase [facility] Narrative Medical decision making narrative: The patient's past medical record is reviewed. She is experiencing frequent UTIs, there is no dominant organism. She again has dysuria, microscopic UA is consistent with UTI once again. A urine culture has been initiated. She is no evidence of pyelonephritis on exam. She is no GI discomfort with exam. I will start her on Bactrim DS 2 times daily for treatment for UTI. I am again encouraged her to see a urologist and/or her PCM to hopefully developed a plan to prevent or at least minimize these UTIs. Discharge Plan Departure Patient Disposition: Home Clinical Impression: Acute UTI Instructions: DI for Urinary Tract Infection (UTI) Activity Restrictions/Additional Instructions: Bactrim DS 2 times daily for the next 7 days. Drink plenty of fluids at all times. Follow-up with your PCM in about 2 weeks. Discussed possibilities of decreasing/eliminating recurrent UTI. If you develop increased flank pain, nausea/vomiting or fever return here. Prescriptions: New sulfamethoxazole-trimethoprim [Bactrim DS] 800-160 mg tablet 1 tab PO BID 7 Days Qty: 14 0RF No Action multivitamin Tablet 1 tab PO DAILY Qty: 0 losartan-hydrochlorothiazide 50-12.5 mg tablet See Rx Instructions .ROUTE .COMPLEX Qty: 90 2RF Dose Instruction: TAKE ONE TABLET BY MOUTH ONE TIME DAILY Rx Instructions: TAKE ONE TABLET BY MOUTH ONE TIME DAILY ezetimibe 10 mg tablet See Rx Instructions .ROUTE .COMPLEX Qty: 90 3RF Dose Instruction: TAKE ONE TABLET BY MOUTH ONE TIME DAILY Rx Instructions: TAKE ONE TABLET BY MOUTH ONE TIME DAILY (DME) Disabled Parking Permint See Rx Instructions .ROUTE .MEDSUPPLY Qty: 1 0RF Rx Instructions: I find this patient to be medically disabled and qualified for Disabled Parking as indicated and signed on the Accompanying Disabled Parking Application for individuals. (DME) blood-glucose meter Misc See Rx Instructions .Route Qty: 1 0RF Rx Instructions: Check blood glucose BID (DME) lancets Misc See Rx Instructions .Route Qty: 200 0RF Rx Instructions: As directed amlodipine 5 mg tablet 5 mg PO DAILY Qty: 90 3RF metformin 1,000 mg tablet 1,000 mg PO BID Qty: 180 3RF Rx Instructions: Start with 1 pill at dinner the 1st week then advanced to twice daily (DME) Blood Glucose Test Strip See Rx Instructions .Route Qty: 50 6RF Rx Instructions: As directed acetaminophen [Tylenol Extra Strength] 500 mg tablet 500 mg PO Q6H PRN (Reason: Pain (Scale Score 1-3)) lidocaine-prilocaine 2.5-2.5 % Cream 1 applic topical PRN PRN (Reason: Pain) Qty: 30 0RF Rx Instructions: Apply to the skin over the port at least 2 hrs before planned use of the port. Cover the cream with a small piece of plastic wrap and leave in place until the port is accessed. Referrals: Darion Clifford, [Primary Care Provider] - Stand Alone Forms: Patient Portal/API
[2023-05-08] MEDS: TRIMETH/SULFA 160/800 (DS) TABLET 1 TAB PO (12:22)
--- NOTE | 2023-05-08 12:30 | PC.NURSE ---
Patient was seen and assessed by provider and put up for discharge before nursing assessment. See provider note regarding examination.
== END 2023-05-08 12:31 | disposition home or self-care (01) ==
PROVIDERS: Emergency Medicine; Emergency Provider Emergency Medicine; Family Provider Family Medicine; PCP Family Medicine
DX: N39.0 Urinary tract infection, site not specified (principal)
CPT/HCPCS: 81003; 81015; 87077; 87086; 87186; 99283

== ENCOUNTER → 2023-05-11 13:53 | Outpatient (CLI) | payer MEDICARE, SELFPAY ==
[2022-12-17 11:45] VITALS: BMI 29.8
== END ==
PROVIDERS: Family Provider Family Medicine; PCP Family Medicine; Referring Provider Family Medicine; Visit Provider Surgery
DX: L59.8 Other specified disorders of the skin and subcutaneous tissue related to radiation (principal); S41.002A Unspecified open wound of left shoulder, initial encounter; C79.81 Secondary malignant neoplasm of breast
CPT/HCPCS: 99213

== ENCOUNTER → 2023-05-31 13:08 | Outpatient (CLI) | payer MEDICARE, SELFPAY ==
[2022-12-17 11:45] VITALS: BMI 29.8
== END ==
PROVIDERS: Family Provider Family Medicine; PCP Family Medicine; Referring Provider Family Medicine; Visit Provider Surgery
DX: S41.102A Unspecified open wound of left upper arm, initial encounter (principal); C79.81 Secondary malignant neoplasm of breast
CPT/HCPCS: 99213

== ENCOUNTER 2023-06-11 08:49 | Emergency (ER) | payer MEDICARE, SELFPAY ==
[2022-12-17 11:45] VITALS: BMI 29.8
[2023-06-11 08:57] VITALS: BP 130/60; PULSE 89; RESP 18; TEMP 36.8; O2SAT 95; BMI 28.2
[2023-06-11 09:01] LABS: Appearance Urine UA CLOUDY; Bilirubin Urine UA NEGATIVE (NEGATIVE); Color Urine UA YELLOW; Glucose Urine UA NEGATIVE (Negative); Ketones Urine UA NEGATIVE (NEGATIVE); Leukocyte Esterase Urine UA 3+ (NEGATIVE); Nitrite Urine UA POSITIVE (Negative); Occult Blood Urine UA 2+ (Negative); Protein Urine UA 2+ (Negative); Specific Gravity Urine UA 1.015 (1.000-1.035); Urobilinogen Urine UA 0.2 E.U./dL (0.2)
--- NOTE | 2023-06-11 09:06 | ED_ITS ---
HPI - Female Genitourinary General Chief complaint: Urogenital-Female Stated complaint: POSSIBLE UTI Time Seen by Provider: 06/11/23 09:03 Source: patient Mode of arrival: Ambulatory History of Present Illness HPI Narrative: Patient 82-year-old female history of hypertension hyperlipidemia triple negative breast cancer with now metastasis not currently on chemotherapy or radiation she is scheduled for what sounds like some sort of bronchoscopy with biopsy in 2 days. Reports that she is having a UTI with painful frequent urination that started yesterday. She is had frequent UTIs past. sHe is grown Enterococcus, Klebsiella. She denies any fever or chills no abdominal pain no chest pain no shortness of breath. She is followed closely by [facility]. Related Data Home Medications Medication Instructions Recorded Confirmed multivitamin 1 tab PO DAILY ##0 12/01/10 04/21/23 acetaminophen 500 mg tablet 500 mg PO Q6H PRN Pain (Scale 04/06/19 04/21/23 (Tylenol Extra Strength) Score 1-3) Previous Rx's Medication Instructions Recorded blood-glucose meter #1 ea 10/06/21 lancets #200 ea 10/06/21 lidocaine-prilocaine 2.5 %-2.5 % 1 applic topical PRN PRN Pain #30 10/26/21 topical cream grams losartan 50 mg-hydrochlorothiazide See Rx Instructions .Route 09/28/22 12.5 mg tablet .COMPLEX #90 tabs ezetimibe 10 mg tablet See Rx Instructions .Route 10/26/22 .COMPLEX #90 tabs amlodipine 5 mg tablet 5 mg PO DAILY #90 tabs 12/20/22 blood sugar diagnostic (Blood #50 ea 12/20/22 Glucose Test strips) metformin 1,000 mg tablet 1,000 mg PO BID #180 tabs 12/20/22 Disabled Parking Permint #1 ea 02/21/23 cephalexin 500 mg capsule 500 mg PO BID 7 days #14 caps 06/11/23 Allergies Allergy/AdvReac Type Severity Reaction Status Date / Time No Known Drug Allergies Allergy Verified 06/11/23 09:01 Review of Systems Review of Systems ROS Unobtainable: All systems reviewed & are unremarkable except as noted in HPI and below Patient History Medical History Skin lesion Anemia Medicare annual wellness visit, subsequent Well adult exam Immunotherapy History of urinary tract infection Lesion of bladder Pulmonary nodule Gross hematuria Cirrhosis Splenomegaly 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Osteoarthritis of left shoulder Right hip pain Strain of tendon of left rotator cuff 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[place] (nonalcoholic steatohepatitis) (10/2014) Hyperglycemia (Unknown) Diverticular disease (Unknown) Carpal tunnel syndrome (Unknown) Hyperlipemia (Unknown) Hypertension (Unknown) Surgical History History of partial mastectomy of left breast (07/29/21) Hx of eye surgery History of surgery H/O right wrist surgery Hx of cholecystectomy Hx of cataract surgery (Unknown) Hx of appendectomy (Unknown) History of carpal tunnel release (Unknown) Status post cholecystectomy Family History Father Cancer Mother Cancer Other Carcinoma of upper-outer quadrant of left female breast alcohol intake frequency: 0-2 drinks per day Substance Use Type: does not use Exam Initial Vital Signs Initial Vital Signs: Vital Signs Temperature 98.2 F 06/11/23 08:57 Pulse Rate 89 06/11/23 08:57 Respiratory Rate 18 06/11/23 08:57 Blood Pressure 130/60 06/11/23 08:57 Pulse Oximetry 95 06/11/23 08:57 Oxygen Delivery Method Room Air 06/11/23 08:57 GENERAL: Alert pleasant 82-year-old female and in no acute distress. HEENT: Head atraumatic,EOMI, pupils reactive, face symmetric, moist mucous membranes CARDIOVASCULAR: Regular rate and rhythm without murmurs, rubs or gallops. RESPIRATORY: Breath sounds equal bilaterally, no wheezes rales or rhonchi. ABDOMEN: Soft, nontender. Normoactive bowel sounds all 4 quadrants. No guarding or rebound. EXTREMITIES: Normal range of motion, no clubbing or edema. Neurovascularly intact NEUROLOGICAL: Alert and oriented x4.Normal gait and speech. SKIN: Warm, dry, no laceration, no petechiae, no rashes or lesions. Course Orders Ordered: ED Orders 06/11/23 08:56 Urinalysis and Microscopic Stat Urine Culture Stat Vital Signs Vital signs: Vital Signs - 8 hr 06/11/23 08:57 Temperature 98.2 F Pulse Rate 89 Respiratory Rate 18 Blood Pressure 130/60 Pulse Oximetry 95 Oxygen Delivery Method Room Air MDM - Female Genitourinary Lab Data Labs: Lab Results 06/11/23 Range/Units 08:56 Urine Color Yellow Urine Appearance Cloudy Urine pH 6.0 (4.5-8.0) Ur Specific [place] 1.015 (1.000-1.035) Urine Protein 2+ H (Negative) Urine Glucose (UA) Negative (Negative) g/dL Urine Ketones Negative (NEGATIVE) Urine Occult Blood 2+ H (Negative) Urine Nitrate Positive H (Negative) Urine Bilirubin Negative (NEGATIVE) Urine Urobilinogen 0.2 (0.2) E.U./dL Ur Leukocyte Esterase 3+ H (NEGATIVE) Urine RBC 1-5/hpf (0-5/HPF) Urine WBC >100/hpf H (0-5/HPF) Ur Squamous Epith Cells 1-5 /hpf (0-5/HPF) Urine Bacteria Many (>30) H (None) Ur Culture Indicated? Specimen cultured Micro UA Comment [facility] Narrative Medical decision making narrative: Patient 82-year-old female who has had multiple UTIs with some drug resistance presenting today with UTI like symptoms. She does have known cancer but not on current chemotherapy immunotherapy or radiation. She vitals are stable no evidence of fever or sepsis. She otherwise appears well at this time I think reasonable to start her on antibiotics. May need to call when cultures and sensitivities return. Discharge Plan Departure Patient Disposition: Home Clinical Impression: Acute UTI Instructions: DI for Urinary Tract Infection (UTI) Activity Restrictions/Additional Instructions: *You have been diagnosed with UTI *What to do: At this time we will call you in 2-3 days if we need to change your antibiotic. You have had resistance to antibiotics in the past *Continue to take medications as directed Keflex 500 mg twice a day for 7 days--> safeway *Follow up with your primary care provider in 2-3 days or call [phone] *Return to ER if you should have increasing confusion fever abdominal or any new, worsening or concerning symptoms Prescriptions: New cephalexin 500 mg capsule 500 mg PO BID 7 Days Qty: 14 0RF No Action multivitamin Tablet 1 tab PO DAILY Qty: 0 losartan-hydrochlorothiazide 50-12.5 mg tablet See Rx Instructions .ROUTE .COMPLEX Qty: 90 2RF Dose Instruction: TAKE ONE TABLET BY MOUTH ONE TIME DAILY Rx Instructions: TAKE ONE TABLET BY MOUTH ONE TIME DAILY ezetimibe 10 mg tablet See Rx Instructions .ROUTE .COMPLEX Qty: 90 3RF Dose Instruction: TAKE ONE TABLET BY MOUTH ONE TIME DAILY Rx Instructions: TAKE ONE TABLET BY MOUTH ONE TIME DAILY (DME) Disabled Parking Permint See Rx Instructions .ROUTE .MEDSUPPLY Qty: 1 0RF Rx Instructions: I find this patient to be medically disabled and qualified for Disabled Parking as indicated and signed on the Accompanying Disabled Parking Application for individuals. (DME) blood-glucose meter Misc See Rx Instructions .Route Qty: 1 0RF Rx Instructions: Check blood glucose BID (DME) lancets Misc See Rx Instructions .Route Qty: 200 0RF Rx Instructions: As directed amlodipine 5 mg tablet 5 mg PO DAILY Qty: 90 3RF metformin 1,000 mg tablet 1,000 mg PO BID Qty: 180 3RF Rx Instructions: Start with 1 pill at dinner the 1st week then advanced to twice daily (DME) Blood Glucose Test Strip See Rx Instructions .Route Qty: 50 6RF Rx Instructions: As directed acetaminophen [Tylenol Extra Strength] 500 mg tablet 500 mg PO Q6H PRN (Reason: Pain (Scale Score 1-3)) lidocaine-prilocaine 2.5-2.5 % Cream 1 applic topical PRN PRN (Reason: Pain) Qty: 30 0RF Rx Instructions: Apply to the skin over the port at least 2 hrs before planned use of the port. Cover the cream with a small piece of plastic wrap and leave in place until the port is accessed. Referrals: Darion Clifford, [Primary Care Provider] - Stand Alone Forms: Patient Portal/API
[2023-06-11 09:15] LABS: Bacteria Urine Many (>30); RBC Urine 1-5/HPF (0-5/HPF); Squamous Epithelial Cell Urine 1-5 /HPF (0-5/HPF); WBC Urine >100/HPF (0-5/HPF)
[2023-06-11 09:16] LABS: Culture Indicated Urine Specimen Cultured
== END 2023-06-11 09:55 | disposition home or self-care (01) ==
PROVIDERS: Emergency Provider Emergency Medicine; Family Provider Family Medicine; PCP Family Medicine
DX: N39.0 Urinary tract infection, site not specified (principal)
CPT/HCPCS: 81001; 87077; 87086; 87186; 99281; 99283

== ENCOUNTER 2023-06-13 23:19 | Emergency (ER) | payer MEDICARE, SELFPAY ==
[2022-12-17 11:45] VITALS: BMI 29.8
[2023-06-13 23:33] VITALS: BP 137/62; PULSE 93; RESP 20; TEMP 37.3; O2SAT 96; BMI 28.2
--- NOTE | 2023-06-13 23:42 | DI.RAD.S_ITS ---
PROCEDURE: XR CHEST 2V INDICATIONS: Right chest pain to scapula TECHNIQUE: 2 views of the chest were acquired. COMPARISON: [facility], CR, XR CHEST 1V, 11/18/2021, 21:30. [facility], CR, XR CHEST 1V, 11/18/2021, 6:29. FINDINGS: Surgical changes and devices: Right chest wall port. Lungs and pleura: Tiny right apical pneumothorax. Right upper lobe mass. Mediastinum: Mediastinal contours are normal. Heart size is normal. Bones and chest wall: No suspicious bony abnormalities. Soft tissues appear unremarkable. IMPRESSION: Trace right apical pneumothorax. No evidence of tension. Right upper lobe mass. Findings discussed with ordering provider at time of dictation. Dictated by: Brandon Mai M.D. on 06/14/2023 at 0:14 Approved by: Brandon Mai M.D. on 06/14/2023 at 0:17
--- NOTE | 2023-06-13 23:50 | PC.NURSE ---
to Rm 8
--- NOTE | 2023-06-13 23:55 | PC.NURSE ---
c/o right upper back pain had bronchoscopy yesterday
--- NOTE | 2023-06-14 00:20 | ED_ITS ---
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 This afternoon after getting home from the bronchoscopy she noticed some pain in the right back upper lung area. She notes that Tylenol helped a bit but comes in for additional evaluation. Related Data Home Medications Medication Instructions Recorded Confirmed multivitamin 1 tab PO DAILY ##0 12/01/10 04/21/23 acetaminophen 500 mg tablet 500 mg PO Q6H PRN Pain (Scale 04/06/19 04/21/23 (Tylenol Extra Strength) Score 1-3) Previous Rx's Medication Instructions Recorded blood-glucose meter #1 ea 10/06/21 lancets #200 ea 10/06/21 lidocaine-prilocaine 2.5 %-2.5 % 1 applic topical PRN PRN Pain #30 10/26/21 topical cream grams losartan 50 mg-hydrochlorothiazide See Rx Instructions .Route 09/28/22 12.5 mg tablet .COMPLEX #90 tabs ezetimibe 10 mg tablet See Rx Instructions .Route 10/26/22 .COMPLEX #90 tabs amlodipine 5 mg tablet 5 mg PO DAILY #90 tabs 12/20/22 blood sugar diagnostic (Blood #50 ea 12/20/22 Glucose Test strips) metformin 1,000 mg tablet 1,000 mg PO BID #180 tabs 12/20/22 Disabled Parking Permint #1 ea 02/21/23 cephalexin 500 mg capsule 500 mg PO BID 7 days #14 caps 06/11/23 docusate sodium 250 mg capsule 250 mg PO DAILY #20 caps 06/14/23 oxycodone-acetaminophen 5 mg-325 1 tab PO Q6H PRN pain #10 tabs 06/14/23 mg tablet Allergies Allergy/AdvReac Type Severity Reaction Status Date / Time No Known Drug Allergies Allergy Verified 06/11/23 09:01 Review of Systems Review of Systems Narrative: Pertinent positive and negative findings as per HPI Patient History Medical History Skin lesion Anemia Medicare annual wellness visit, subsequent Well adult exam Immunotherapy History of urinary tract infection Lesion of bladder Pulmonary nodule Gross hematuria Cirrhosis Splenomegaly 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Osteoarthritis of left shoulder Right hip pain Strain of tendon of left rotator cuff 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EASTON (nonalcoholic steatohepatitis) (10/2014) Hyperglycemia (Unknown) Diverticular disease (Unknown) Carpal tunnel syndrome (Unknown) Hyperlipemia (Unknown) Hypertension (Unknown) Surgical History History of partial mastectomy of left breast (07/29/21) Hx of eye surgery History of surgery H/O right wrist surgery Hx of cholecystectomy Hx of cataract surgery (Unknown) Hx of appendectomy (Unknown) History of carpal tunnel release (Unknown) Status post cholecystectomy Family History Father Cancer Mother Cancer Other Carcinoma of upper-outer quadrant of left female breast Social History marital status: number of children: 3 household members: none occupational status: previously employed Smoking Status: Never smoker alcohol intake: never substance use type: does not use Smoking Status: Never smoker alcohol intake frequency: 0-2 drinks per day Substance Use Type: does not use Exam Initial Vital Signs Initial Vital Signs: Vital Signs Temperature 99.2 F 06/13/23 23:33 Pulse Rate 93 H 06/13/23 23:33 Respiratory Rate 20 06/13/23 23:33 Blood Pressure 137/62 06/13/23 23:33 Pulse Oximetry 96 06/13/23 23:33 Oxygen Delivery Method Room Air 06/13/23 23:33 General: Older appearing, minor distress secondary to pain but Able to give a complete and coherent history. Well-nourished well-developed Neck: No JVD, supple Respiratory: Lungs are clear to auscultation, minor scattered wheeze but Full and symmetrical air movement Cardiac: Regular rate and rhythm no murmurs no bruits Abdomen: Soft, nontender, good bowel tones, no flank pain Skin: Warm and dry, no rashes Neurologic: Grossly neurologically intact with no obvious asymmetries or abnormalities Extremities: No trauma, well perfused Psych: Cooperative, appropriate insight and affect Course Orders Ordered: ED Orders 06/13/23 23:42 CXR [XR chest 2V] Stat 06/14/23 00:32 XR chest 1V Stat Discontinued Medications Oxycodone HCl (Oxycodone Ir 5 Mg Tablet) 5 mg PO NOW ONE Stop: 06/14/23 00:32 Last Admin: 06/14/23 00:43 Dose: 5 mg Documented By: SUNNY Vital Signs Vital signs: Vital Signs - 8 hr 06/13/23 23:33 06/14/23 02:16 06/14/23 02:30 Temperature 99.2 F Pulse Rate 93 H 75 73 Respiratory Rate 20 Blood Pressure 137/62 Pulse Oximetry 96 95 95 Oxygen Delivery Method Room Air MDM - Back Pain/Injury MDM Narrative Medical decision making narrative: CC: Right posterior chest pain Complicating co-morbidities: Breast cancer, right apical lung cancer post bronchoscopy and biopsy earlier today Data collected from: patient, daughter Medical records reviewed: Notes from [facility] regarding her procedure earlier today are reviewed Differential considered: Pneumothorax, infection, shingles Exam documented above, pertinent findings include: Fairly normal exam Imaging studies independently reviewed: Initial two-view chest x-ray shows a very small right sided apical pneumothorax, reviewed with Radiology and real-time One-view chest x-ray 4 hours later shows the right apical pneumothorax measuring 6 mm and unchanged from prior exam Consultations: Dr. Ginette Kulkarni, general surgeon, message is sent to Dr. Roman, Cardiothoracic surgeon who performed the bronchoscopy and biopsy earlier today Treatments: Percocet for pain control Re-evaluations: Findings reviewed with the patient. The hydrocodone added to the Tylenol that she taken prior to arrival was helpful for pain control. She is not having tachypnea, tachycardia nor any oxygen requirements Discussion: 82-year-old woman with a right apical lung mass post bronchoscopy and biopsy earlier today with acute onset severe right apical chest pain at approximately 10:00 p.m. tonight. Very small apical pneumothorax is appreciated and is unchanged after evaluation in the emergency room and observation for an additional 4 hours. At this point I believe patient is safe for discharge home. We will send a message to her Cardiothoracic surgeon to let him know that she was in the ER and had a small complication but is stable. She is given a small amount of Percocet to use for pain control. Recommended MiraLax to help with constipation but she preferred using docusate. Prescription for that is given. She will follow-up with Dr. Roman. Questions are answered and she is safe for discharge Discharge Plan Departure Patient Disposition: Home Clinical Impression: Pneumothorax after biopsy Instructions: DI for Pneumothorax Activity Restrictions/Additional Instructions: Thank you for coming in today The pain that you are experiencing is from a tiny hole in the lining of your lung. This is 1 of the complications that we can see after bronchoscopies and lung biopsies. You have a very small pneumothorax. This does explain the pain. You were observed in the emergency department for 4 hours and a 2nd chest x-ray did not show that the pneumothorax was expanding in any way. This will likely fix itself over the next couple of days. If you find that you are having increasing pain or shortness a breath you do need to be re-evaluated. You can use 1 Percocet every 6 hours for severe pain. You can use Tylenol for moderate pain. Any day that you choose to use Percocet, please recognize this is a narcotic, will cause constipation and I would recommend taking 1-2 docusate stool softener that day as well These prescriptions were electronically transmitted to [facility] in [place] free to picking tech later today I have messaged Dr. Roman so he is aware of the ER visit and the findings. If you find that you are getting worse or develop any new symptoms, please feel free to return to the emergency department for further evaluation. Prescriptions: New oxycodone-acetaminophen 5-325 mg tablet 1 tab PO Q6H PRN (Reason: pain) Qty: 10 0RF docusate sodium 250 mg capsule 250 mg PO DAILY Qty: 20 0RF Rx Instructions: use any day that you also take a narcotic pain pill to prevent constipation No Action multivitamin Tablet 1 tab PO DAILY Qty: 0 losartan-hydrochlorothiazide 50-12.5 mg tablet See Rx Instructions .ROUTE .COMPLEX Qty: 90 2RF Dose Instruction: TAKE ONE TABLET BY MOUTH ONE TIME DAILY Rx Instructions: TAKE ONE TABLET BY MOUTH ONE TIME DAILY ezetimibe 10 mg tablet See Rx Instructions .ROUTE .COMPLEX Qty: 90 3RF Dose Instruction: TAKE ONE TABLET BY MOUTH ONE TIME DAILY Rx Instructions: TAKE ONE TABLET BY MOUTH ONE TIME DAILY (DME) Disabled Parking Permint See Rx Instructions .ROUTE .MEDSUPPLY Qty: 1 0RF Rx Instructions: I find this patient to be medically disabled and qualified for Disabled Parking as indicated and signed on the Accompanying Disabled Parking Application for individuals. (DME) blood-glucose meter Misc See Rx Instructions .Route Qty: 1 0RF Rx Instructions: Check blood glucose BID (DME) lancets Misc See Rx Instructions .Route Qty: 200 0RF Rx Instructions: As directed amlodipine 5 mg tablet 5 mg PO DAILY Qty: 90 3RF metformin 1,000 mg tablet 1,000 mg PO BID Qty: 180 3RF Rx Instructions: Start with 1 pill at dinner the 1st week then advanced to twice daily (DME) Blood Glucose Test Strip See Rx Instructions .Route Qty: 50 6RF Rx Instructions: As directed acetaminophen [Tylenol Extra Strength] 500 mg tablet 500 mg PO Q6H PRN (Reason: Pain (Scale Score 1-3)) lidocaine-prilocaine 2.5-2.5 % Cream 1 applic topical PRN PRN (Reason: Pain) Qty: 30 0RF Rx Instructions: Apply to the skin over the port at least 2 hrs before planned use of the port. Cover the cream with a small piece of plastic wrap and leave in place until the port is accessed. cephalexin 500 mg capsule 500 mg PO BID 7 Days Qty: 14 0RF Referrals: Darion Clifford, [Primary Care Provider] - Stand Alone Forms: Patient Portal/API
--- NOTE | 2023-06-14 00:32 | DI.RAD.S_ITS ---
PROCEDURE: XR CHEST 1V INDICATIONS: post op pneumo TECHNIQUE: One view of the chest was acquired. COMPARISON: [facility], CR, XR CHEST 2V, 06/13/2023, 23:46. FINDINGS: Surgical changes and devices: Tunneled right port device is unchanged in positioning. Lungs and pleura: Stable appearance of right apical mass. Stable appearance of small right apical pneumothorax measuring approximately 6 mm. No new airspace opacities. Stable appearance mild chronic appearing diffuse interstitial coarsening. No substantial pleural effusion. Mediastinum: Mediastinal contours appear normal. Heart size is normal. Bones and chest wall: No suspicious bony lesions. Overlying soft tissues appear unremarkable. IMPRESSION: 1. Stable size and appearance of small apical pneumothorax. 2. Stable right upper lobe mass. 3. Redemonstration of chronic diffuse coarsening interstitial markings. No significant discrepancy with the window cutter radiology preliminary report. Dictated by: Alexander Pop M.D. on 06/14/2023 at 7:20 Approved by: Alexander Pop M.D. on 06/14/2023 at 7:24
[2023-06-14] MEDS: OXYCODONE IR 5 MG TABLET PO (00:43)
--- NOTE | 2023-06-14 01:30 | PC.NURSE ---
pt states the pain is still there but she does not want anything else for pain
[2023-06-14 02:16] VITALS: PULSE 75; O2SAT 95
[2023-06-14 02:30] VITALS: PULSE 73; O2SAT 95
--- NOTE | 2023-06-14 02:47 | PC.NURSE ---
pt c/o weakness upon returning to room, no sob noted
[2023-06-14 05:12] VITALS: BP 116/56; PULSE 67; RESP 18; O2SAT 96
[2023-06-14] MEDS: OXYCODONE/ACETAMINOPHEN 5/325 TABLET 1 TAB PO (05:24)
== END 2023-06-14 05:25 | disposition home or self-care (01) ==
PROVIDERS: Emergency Provider Emergency Medicine; Family Provider Family Medicine; PCP Family Medicine
DX: J95.811 Postprocedural pneumothorax (principal)
CPT/HCPCS: 71045; 71046; 99213; 99283

== ENCOUNTER → 2023-06-14 15:27 | Outpatient (CLI) | payer MEDICARE, SELFPAY ==
[2022-12-17 11:45] VITALS: BMI 29.8
== END ==
PROVIDERS: Family Provider Family Medicine; PCP Family Medicine; Referring Provider Family Medicine; Visit Provider Surgery
DX: C79.81 Secondary malignant neoplasm of breast (principal); I10 Essential (primary) hypertension; E78.5 Hyperlipidemia, unspecified; E11.9 Type 2 diabetes mellitus without complications; S21.002A Unspecified open wound of left breast, initial encounter
CPT/HCPCS: 99213

== ENCOUNTER → 2023-06-21 08:58 | Outpatient (CLI) | payer MEDICARE, SELFPAY ==
[2022-12-17 11:45] VITALS: BMI 29.8
[2023-06-21 11:17] LABS: Appearance Urine UA CLEAR; Bilirubin Urine UA NEGATIVE (NEGATIVE); Color Urine UA YELLOW; Glucose Urine UA NEGATIVE (Negative); Ketones Urine UA NEGATIVE (NEGATIVE); Leukocyte Esterase Urine UA 3+ (NEGATIVE); Nitrite Urine UA POSITIVE (Negative); Occult Blood Urine UA TRACE-INTACT (Negative); Protein Urine UA NEGATIVE (Negative); Urobilinogen Urine UA 0.2 E.U./dL (0.2)
[2023-06-21 11:22] LABS: pH Urine UA 6.5 (4.5-8.0)
[2023-06-21 11:26] LABS: Bacteria Urine Many (>30); Culture Indicated Urine Specimen Cultured; RBC Urine 5-10/HPF (0-5/HPF); Squamous Epithelial Cell Urine None Seen (0-5/HPF); WBC Urine 30-100/HPF (0-5/HPF)
== END ==
PROVIDERS: Family Provider Family Medicine; PCP Family Medicine; Referring Provider Urology; Visit Provider Urology
DX: N39.0 Urinary tract infection, site not specified (principal); R31.0 Gross hematuria
CPT/HCPCS: 81001; 87077; 87086; 87186

== ENCOUNTER → 2023-07-05 13:04 | Outpatient (CLI) | payer MEDICARE, SELFPAY ==
[2022-12-17 11:45] VITALS: BMI 29.8
== END ==
PROVIDERS: Family Provider Family Medicine; PCP Family Medicine; Referring Provider Family Medicine; Visit Provider Surgery
DX: C79.81 Secondary malignant neoplasm of breast (principal); S41.102D Unspecified open wound of left upper arm, subsequent encounter
CPT/HCPCS: 99213

== ENCOUNTER 2023-07-10 09:57 | Emergency (ER) | payer MEDICARE, SELFPAY ==
[2022-12-17 11:45] VITALS: BMI 29.8
[2023-07-10] VITALS (13 sets, daily range): BP systolic 129–145; BP diastolic 59–65; PULSE 89–102; RESP 11–22; TEMP 37.3–38.1; O2SAT 93–98; BMI 28.2
--- NOTE | 2023-07-10 10:14 | DI.RAD.S_ITS ---
PROCEDURE: XR CHEST 1V INDICATIONS: suspected sepsis TECHNIQUE: One view of the chest was acquired. COMPARISON: [facility], CR, XR CHEST 2V, 06/13/2023, 23:46. [facility], CR, XR CHEST 1 VIEW, 06/13/2023, 16:23. [facility], CT, CT VERAN CHEST, 05/24/2023, 13:50. [facility], CR, XR CHEST 1V, 06/14/2023, 3:56. FINDINGS: Surgical changes and devices: Right chest port with the tip projecting over the right atrium. Lungs and pleura: Right apical mass, symmetric comparison. Streaky opacity within the right middle and right lower lobe. No pleural effusions or pneumothorax. Mediastinum: Mediastinal contours appear normal. Heart size is normal. Bones and chest wall: No suspicious bony lesions. Overlying soft tissues appear unremarkable. IMPRESSION: Stable appearance of right upper lobe mass. Linear consolidation within the right midlung and right lower lobe may represent atelectasis however infection cannot be excluded. Dictated by: Aleksey Harrison M.D. on 07/10/2023 at 9:56 Approved by: Aleksey Harrison M.D. on 07/10/2023 at 10:00
--- NOTE | 2023-07-10 10:25 | ED.WEAKNESS ---
HPI - Weakness General Chief complaint: Weakness Stated complaint: weak/shakey/cough Time Seen by Provider: 07/10/23 10:14 Source: patient, family, RN notes reviewed and old records reviewed Mode of arrival: Ambulatory Limitations: no limitations History of Present Illness HPI Narrative: 82-year-old male with history of metastatic breast cancer with lung involvement currently on chemotherapy and prior history of radiation, hypertension, dyslipidemia, diabetes, osteopenia and autoimmune hepatitis. Patient was noted to have a recent pneumothorax after bronchoscopy, patient had small right apical pneumothorax seen on 06/14/2023 and discharged home after being found to be stable. Patient presents with generally feeling unwell, shaky, cough and generalized weakness for the last few days. Patient had 2nd dose of chemo on for her breast cancer she has had radiation in the past but none recently. She denies fevers or chills at home, no diaphoresis. Denies any nasal congestion. She states she is had cough which has been persistent and relates to her metastatic lung cancer, she denies any sputum or hemoptysis patient denies any nausea or vomiting. Denies any diarrhea, she is had some mild constipation. States having small amounts of stool regularly most recently today. Denies dysuria, urgency or denies any chest, abdominal back or flank pain. Denies any shortness of breath. Patient denies any new swelling in extremities. No rash or skin changes. Patient states no known drug allergies. No tobacco, alcohol or illicit. Dr. Clifford is her primary care physician. Dr. Ocampo is her oncologist at [facility]. Patient is accompanied by her daughter. Patient states she is been able to ambulate today at home. Related Data Home Medications Medication Instructions Recorded Confirmed multivitamin 1 tab PO DAILY ##0 12/01/10 06/29/23 acetaminophen 500 mg tablet 500 mg PO Q6H PRN Pain (Scale 04/06/19 06/29/23 (Tylenol Extra Strength) Score 1-3) Previous Rx's Medication Instructions Recorded blood-glucose meter #1 ea 10/06/21 lancets #200 ea 10/06/21 lidocaine-prilocaine 2.5 %-2.5 % 1 applic topical PRN PRN Pain #30 10/26/21 topical cream grams ezetimibe 10 mg tablet See Rx Instructions .Route 10/26/22 .COMPLEX #90 tabs amlodipine 5 mg tablet 5 mg PO DAILY #90 tabs 12/20/22 blood sugar diagnostic (Blood #50 ea 12/20/22 Glucose Test strips) metformin 1,000 mg tablet 1,000 mg PO BID #180 tabs 12/20/22 Disabled Parking Permint #1 ea 02/21/23 docusate sodium 250 mg capsule 250 mg PO DAILY #20 caps 06/14/23 oxycodone-acetaminophen 5 mg-325 1 tab PO Q6H PRN pain #10 tabs 06/14/23 mg tablet losartan 50 mg-hydrochlorothiazide See Rx Instructions .Route 06/27/23 12.5 mg tablet .COMPLEX #90 tabs ciprofloxacin HCl 500 mg tablet 500 mg PO BID #20 tabs 06/29/23 Allergies Allergy/AdvReac Type Severity Reaction Status Date / Time No Known Drug Allergies Allergy Verified 06/11/23 09:01 Review of Systems Review of Systems ROS Unobtainable: All systems reviewed & are unremarkable except as noted in HPI and below Patient History Medical History Skin lesion Anemia Medicare annual wellness visit, subsequent Well adult exam Immunotherapy History of urinary tract infection Lesion of bladder Pulmonary nodule Gross hematuria Cirrhosis Splenomegaly 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Osteoarthritis of left shoulder Right hip pain Strain of tendon of left rotator cuff 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EASTON (nonalcoholic steatohepatitis) (10/2014) Hyperglycemia (Unknown) Diverticular disease (Unknown) Carpal tunnel syndrome (Unknown) Hyperlipemia (Unknown) Hypertension (Unknown) Surgical History History of partial mastectomy of left breast (07/29/21) Hx of eye surgery History of surgery H/O right wrist surgery Hx of cholecystectomy Hx of cataract surgery (Unknown) Hx of appendectomy (Unknown) History of carpal tunnel release (Unknown) Status post cholecystectomy Family History Father Cancer Mother Cancer Other Carcinoma of upper-outer quadrant of left female breast Social History marital status: number of children: 3 household members: none occupational status: previously employed Smoking Status: Never smoker alcohol intake: never substance use type: does not use Smoking Status: Never smoker alcohol intake frequency: 0-2 drinks per day Substance Use Type: does not use Exam Narrative Exam Narrative: GEN: Pale elderly appearing female, alert and oriented x 3, patient appears to be in mild distress. HEENT: Atraumatic, pupils are equal round reactive to light, extraocular movements are intact, nares are clear, there is no conjunctival pallor. Throat is clear without any exudates, erythema, tonsillar enlargement or uvular deviation HEART: Regular rate and rhythm without murmur, clicks, rubs. pulses are equal in upper and lower extremities. Patient has not access port on the right anterior chest which is clean dry and intact without any signs of infection. LUNGS:Lungs clear to auscultation, no wheezes, rales, crackles, chest moves symmetrically, no tachypnea or accessory muscle use. ABD:bowel sounds normal, soft, non-tender, no guarding, rebound, rigidity, no masses noted, no hepatosplenomegaly :No CVA tenderness MSCL: Non-tender, no muscle atrophy, muscles strength 5/5 upper and lower extremities, full range of motion NEURO:CN 2-12 intact, sensation normal SKIN: Rash, erythema, petechiae or other skin changes noted. Initial Vital Signs Initial Vital Signs: Vital Signs Temperature 99.1 F 07/10/23 10:11 Pulse Rate 102 H 07/10/23 10:11 Respiratory Rate 18 07/10/23 10:11 Blood Pressure 141/64 H 07/10/23 10:11 Pulse Oximetry 95 07/10/23 10:11 Oxygen Delivery Method Room Air 07/10/23 10:11 Course Orders Ordered: ED Orders 07/10/23 10:14 XR chest 1V Stat RT Consult Eval and Treat NOW 07/10/23 10:25 Respiratory Panel (Film Array) Stat 07/10/23 10:29 EKG-12 Lead Stat 07/10/23 10:45 Blood Culture Stat Complete Blood Count AUTO DIFF Stat Comprehensive Metabolic Panel Stat Lactate (Lactic Acid) Stat Lipase Stat PTT Partial Thromboplastin Justin Stat Procalcitonin Stat Prothrombin Time INR Stat Sodium Chloride (Normal Saline 0.9%) 1,000 mls @ 1,000 mls/hr IV BOLUS ONE Stop: 07/10/23 11:13 Last Admin: 07/10/23 10:52 Dose: 1,000 mls/hr Documented By: KF Discontinued Medications Ondansetron HCl (Ondansetron 4 Mg/2 Ml Inj) 4 mg IV NOW PRN PRN Reason: Nausea And Vomiting Ondansetron HCl (Ondansetron 4 Mg Odt) 4 mg SL NOW PRN PRN Reason: Nausea And Vomiting Vital Signs Vital signs: Vital Signs - 8 hr 07/10/23 10:11 Temperature 99.1 F Pulse Rate 102 H Respiratory Rate 18 Blood Pressure 141/64 H Pulse Oximetry 95 Oxygen Delivery Method Room Air MDM - Weakness Lab Data 07/10/23 10:45 07/10/23 10:45 ECG Data Attestation: I personally reviewed and interpreted this ECG as follows: Prior ECG tracings: available for review Interpretation: Sinus rhythm rate 88 NV 140, QRS is 74 QTC of 428. No acute ST changes appears similar to prior from 11/07/2021. Discharge Plan Departure Prescriptions: No Action multivitamin Tablet 1 tab PO DAILY Qty: 0 ezetimibe 10 mg tablet See Rx Instructions .ROUTE .COMPLEX Qty: 90 3RF Dose Instruction: TAKE ONE TABLET BY MOUTH ONE TIME DAILY Rx Instructions: TAKE ONE TABLET BY MOUTH ONE TIME DAILY (DME) Disabled Parking Permint See Rx Instructions .ROUTE .MEDSUPPLY Qty: 1 0RF Rx Instructions: I find this patient to be medically disabled and qualified for Disabled Parking as indicated and signed on the Accompanying Disabled Parking Application for individuals. losartan-hydrochlorothiazide 50-12.5 mg tablet See Rx Instructions .ROUTE .COMPLEX Qty: 90 2RF Dose Instruction: TAKE ONE TABLET BY MOUTH ONE TIME DAILY Rx Instructions: TAKE ONE TABLET BY MOUTH ONE TIME DAILY (DME) blood-glucose meter Misc See Rx Instructions .Route Qty: 1 0RF Rx Instructions: Check blood glucose BID (DME) lancets Misc See Rx Instructions .Route Qty: 200 0RF Rx Instructions: As directed amlodipine 5 mg tablet 5 mg PO DAILY Qty: 90 3RF metformin 1,000 mg tablet 1,000 mg PO BID Qty: 180 3RF Rx Instructions: Start with 1 pill at dinner the 1st week then advanced to twice daily (DME) Blood Glucose Test Strip See Rx Instructions .Route Qty: 50 6RF Rx Instructions: As directed acetaminophen [Tylenol Extra Strength] 500 mg tablet 500 mg PO Q6H PRN (Reason: Pain (Scale Score 1-3)) lidocaine-prilocaine 2.5-2.5 % Cream 1 applic topical PRN PRN (Reason: Pain) Qty: 30 0RF Rx Instructions: Apply to the skin over the port at least 2 hrs before planned use of the port. Cover the cream with a small piece of plastic wrap and leave in place until the port is accessed. oxycodone-acetaminophen 5-325 mg tablet 1 tab PO Q6H PRN (Reason: pain) Qty: 10 0RF docusate sodium 250 mg capsule 250 mg PO DAILY Qty: 20 0RF Rx Instructions: use any day that you also take a narcotic pain pill to prevent constipation ciprofloxacin HCl 500 mg tablet 500 mg PO BID Qty: 20 0RF Referrals: Darion Clifford, [Primary Care Provider] -
[2023-07-10] MEDS: SODIUM CHLORIDE 0.9% 1,000 ML 1000 ML IV (10:52)
--- NOTE | 2023-07-10 10:56 | PC.NURSE ---
port placed to R chest w/o issue; pt denies nausea, refuses nasuea medication. 2nd set of BC obtained via straight stick to [facility].
[2023-07-10 10:59] LABS: Add Manual Diff / Slide Review NO; Basophils Absolute Auto 0 /uL (0-100); Basophils Percent Auto 0.2 % (0-2); Eosinophils Absolute Auto 200 /uL (0-450); Eosinophils Percent Auto 7.7 % (2-4); Hematocrit 34.4 % (36-46); Hemoglobin 11.5 g/dL (12.0-16.0); Lymphocytes Absolute Auto 200 /uL (1100-4500); Lymphocytes Percent Auto 6.4 % (25-40); Mean Corpuscular HGB Conc 33.5 % (30-36); Mean Corpuscular Hemoglobin 33.1 PG (26-34); Mean Corpuscular Volume 98.8 fL (80-100); Monocytes Absolute Auto 0 /uL (0-900); Monocytes Percent Auto 1.6 % (3-14); Neutrophils Absolute Auto 2100 /uL (1500-7000); Neutrophils Percent Auto 84.1 % (50-75); Platelet Count 70 X10^3/uL (150-400); Red Blood Cell Count 3.48 X10^6/uL (4.0-5.2); White Blood Cell Count 2.5 X10^3/uL (4.5-11.0)
[2023-07-10 11:07] LABS: INR 1.2 (0.9-1.3)
[2023-07-10 11:10] LABS: Alanine Aminotransferase 37 IU/L (<35); Albumin 3.3 g/dL (3.5-5.0); Albumin Globulin Ratio 0.9 (1.0-2.8); Alkaline Phosphatase 115 U/L (38-126); Aspartate Aminotransferase 74 IU/L (14-36); BUN Creatinine Ratio 36.1 (6-22); Bilirubin Total 1.7 mg/dL (0.2-1.3); Blood Urea Nitrogen 22 mg/dL (7-17); Calcium 9.2 mg/dL (8.4-10.2); Carbon Dioxide 24 mmol/L (22-32); Chloride 103 mmol/L (98-107); Estimated Glomerular Filt Rate > 60 mL/min (>60); Globulin 3.8 g/dL (1.7-4.1); Glucose 154 mg/dL (80-110); HEMOLYSIS < 15 (0-50); Lipase 296 U/L (23-300); PTT Partial Thromboplastin Tim 43 SECONDS (25.1-36.5); Potassium 4.1 mmol/L (3.4-5.1); Sodium 132 mmol/L (137-145); Total Protein 7.1 g/dL (6.3-8.2)
[2023-07-10 11:11] LABS: Lactate (Lactic Acid) 1.9 mmol/L (0.7-2.1)
[2023-07-10 11:27] LABS: Procalcitonin 0.16 ng/mL (<0.5)
--- NOTE | 2023-07-10 11:34 | DI.US.S_ITS ---
PROCEDURE: US ABDOMEN LIMITED INDICATIONS: ELEVATED LIVER FUNCTION TESTS. TECHNIQUE: Real-time scanning was performed of the abdominal and retroperitoneal organs, with image documentation. COMPARISON: None. FINDINGS: Liver: Hepatomegaly. Lobular contours. Mildly heterogeneous echotexture. Trace ascites. Gallbladder: Prior cholecystectomy Biliary ducts: Intrahepatic bile ducts are non-dilated. Extrahepatic bile duct caliber measures 10 mm. Common hepatic duct measures 4.9 mm. Normal is 6-7 mm or less in diameter, or 10 mm or less post-cholecystectomy. Pancreas: Visualized portions of the pancreas are sonographically normal. IMPRESSION: Cirrhotic changes of the liver with mass not identified. Mild ductal dilation of the biliary system is of undetermined significance in a patient status post cholecystectomy. Dictated by: Aleksey Harrison M.D. on 07/10/2023 at 11:55 Approved by: Aleksey Harrison M.D. on 07/10/2023 at 11:58
[2023-07-10] MEDS: cefTRIAXone 2,000 MG in SODIUM CHLORIDE 0.9% 100 ML 200 MG IV (11:41)
[2023-07-10 11:48] LABS: Adenovirus Not Detected (Not Detect); B. parapertussis Not Detected (Not Detecte); Bordetella pertussis Not Detected (Not Detect); Chlamydophila pneumoniae Not Detected (Not Detect); Coronavirus 229E Not Detected (Not Detect); Coronavirus HKU1 Not Detected (Not Detect); Coronavirus NL 63 Not Detected (Not Detect); Coronavirus OC43 Not Detected (Not Detect); Human Metapneumovirus Not Detected (Not Detect); Human Rhinovirus/Enterovirus Not Detected (Not Detect); Influenza A H1-2009 Detected (Not Detect); Influenza B Not Detected (Not Detect); Mycoplasma pneumoniae Not Detected (Not Detect); Parainfluenza Virus 1 Not Detected (Not Detect); Parainfluenza Virus 2 Not Detected (Not Detect); Parainfluenza Virus 3 Not Detected (Not Detect); Parainfluenza Virus 4 Not Detected (Not Detect); Respiratory Syncytial Virus Not Detected (Not Detect); SARS- CoV-2 Not Detected (Not Detecte)
[2023-07-10 12:42] LABS: Bacteria Urine Few (2-10); RBC Urine 0-1/HPF (0-5/HPF); Squamous Epithelial Cell Urine 1-5 /HPF (0-5/HPF); WBC Urine 1-5/HPF (0-5/HPF)
[2023-07-10] MEDS: ACETAMINOPHEN 325 MG TABLET 975 MG PO (14:08)
== END 2023-07-10 14:13 | disposition home or self-care (01) ==
PROVIDERS: Emergency Provider Emergency Medicine; Family Provider Family Medicine; PCP Family Medicine
DX: J10.1 Influenza due to other identified influenza virus with other respiratory manifestations (principal)
CPT/HCPCS: 36415; 71045; 76705; 80053; 81003; 81015; 83605; 83690; 84145; 85025; 85610; 85730; 87040; 87086; 87633; 93005; 93010; 96365; 96375; 99284; J0696; J1642; J2405

== ENCOUNTER → 2023-07-19 10:43 | Outpatient (CLI) | payer MEDICARE, SELFPAY ==
[2022-12-17 11:45] VITALS: BMI 29.8
[2023-07-19 12:41] LABS: INR 1.3 (0.9-1.3); Prothrombin Time 14.8 SECONDS (9.4-12.5)
[2023-07-19 13:03] LABS: Alanine Aminotransferase 48 IU/L (<35); Albumin 3.1 g/dL (3.5-5.0); Albumin Globulin Ratio 0.8 (1.0-2.8); Alkaline Phosphatase 153 U/L (38-126); Aspartate Aminotransferase 64 IU/L (14-36); BUN Creatinine Ratio 15.3 (6-22); Bilirubin Total 0.9 mg/dL (0.2-1.3); Blood Urea Nitrogen 9 mg/dL (7-17); Carbon Dioxide 25 mmol/L (22-32); Chloride 106 mmol/L (98-107); Estimated Glomerular Filt Rate > 60 mL/min (>60); Globulin 3.9 g/dL (1.7-4.1); Glucose 155 mg/dL (80-110); HEMOLYSIS < 15 (0-50); Potassium 4.1 mmol/L (3.4-5.1); Sodium 137 mmol/L (137-145)
[2023-07-19 15:39] LABS: Creatinine Urine Random 108.2 mg/dL
[2023-07-19 15:47] LABS: Microalbumin Urine Random 1.2 mg/dL (0-1.6)
[2023-07-20 07:30] LABS: Alpha Fetoprotein 3.9 ng/mL (0.0-8.7)
== END ==
PROVIDERS: Family Provider Family Medicine; PCP Family Medicine; Referring Provider Internal Medicine Gastroenterology; Visit Provider Internal Medicine Gastroenterology
DX: R18.8 Other ascites (principal); K74.60 Unspecified cirrhosis of liver; I10 Essential (primary) hypertension; E11.9 Type 2 diabetes mellitus without complications; Z90.12 Acquired absence of left breast and nipple; Z87.440 Personal history of urinary (tract) infections
CPT/HCPCS: 36415; 80053; 82043; 82105; 82570; 85610

== ENCOUNTER → 2023-08-02 13:30 | Outpatient (CLI) | payer MEDICARE, SELFPAY ==
[2022-12-17 11:45] VITALS: BMI 29.8
== END ==
LOC: WC 13:31
PROVIDERS: Family Provider Family Medicine; PCP Family Medicine; Referring Provider Family Medicine; Visit Provider Surgery
DX: S41.102A Unspecified open wound of left upper arm, initial encounter (principal); C79.81 Secondary malignant neoplasm of breast; I89.0 Lymphedema, not elsewhere classified
CPT/HCPCS: 99213

== ENCOUNTER 2023-08-06 22:24 | Observation (INO) | payer MEDICARE, SELFPAY ==
[2022-12-17 11:45] VITALS: BMI 29.8
[2023-08-06 22:35] VITALS: PULSE 83; O2SAT 97
[2023-08-06 22:36] VITALS: BP 127/86; PULSE 80; RESP 16; TEMP 36.8; O2SAT 96; BMI 27.4
[2023-08-06 22:54] VITALS: BP 112/57; PULSE 77; O2SAT 97
[2023-08-06 23:00] VITALS: BP 110/52; PULSE 79; O2SAT 97
[2023-08-06 23:07] LABS: Hematocrit 28.4 % (36-46); Hemoglobin 9.6 g/dL (12.0-16.0); Mean Corpuscular HGB Conc 33.9 % (30-36); Mean Corpuscular Hemoglobin 32.5 PG (26-34); Mean Corpuscular Volume 95.8 fL (80-100); Platelet Count 94 X10^3/uL (150-400); Red Blood Cell Count 2.97 X10^6/uL (4.0-5.2); Red Cell Distribution Width 14.5 % (11.6-14.8)
[2023-08-06 23:11] LABS: Add Manual Diff / Slide Review YES; White Blood Cell Count 1.4 X10^3/uL (4.5-11.0)
[2023-08-06 23:12] LABS: Alanine Aminotransferase 38 IU/L (<35); Albumin 2.8 g/dL (3.5-5.0); Albumin Globulin Ratio 0.8 (1.0-2.8); Alkaline Phosphatase 134 U/L (38-126); Aspartate Aminotransferase 38 IU/L (14-36); BUN Creatinine Ratio 33.8 (6-22); Bilirubin Total 1.1 mg/dL (0.2-1.3); Blood Urea Nitrogen 27 mg/dL (7-17); Calcium 8.7 mg/dL (8.4-10.2); Carbon Dioxide 19 mmol/L (22-32); Chloride 104 mmol/L (98-107); Estimated Glomerular Filt Rate > 60 mL/min (>60); Globulin 3.6 g/dL (1.7-4.1); Glucose 140 mg/dL (80-110); HEMOLYSIS < 15 (0-50); Potassium 3.2 mmol/L (3.4-5.1); Sodium 131 mmol/L (137-145); Total Protein 6.4 g/dL (6.3-8.2)
[2023-08-06 23:30] VITALS: BP 115/57; PULSE 81; O2SAT 97
--- NOTE | 2023-08-06 23:31 | ED.NAVMDI ---
HPI - Nausea/Vomiting/Diarrhea General Chief complaint: Nausea/Vomiting/Diarrhea Stated complaint: NVD 12 days since Chemo treatment Time Seen by Provider: 08/06/23 22:31 Source: patient Mode of arrival: Ambulatory History of Present Illness HPI Narrative: 82-year-old female who presents with nausea, vomiting and persistent diarrhea for 12 days after chemotherapy for invasive/metastatic carcinoma of the breast. Patient reports contacting oncology and being prescribed loperamide for symptom relief. Patient states diarrhea only temporary improved with loperamide. Patient is concerned for dehydration. No other complaints or associated symptoms noted. Patient arrives via private vehicle. Patient is awake, alert, ambulatory, in no apparent distress and maintaining her own airway. Related Data Home Medications Medication Instructions Recorded Confirmed multivitamin 1 tab PO DAILY ##0 12/01/10 06/29/23 acetaminophen 500 mg tablet 500 mg PO Q6H PRN Pain (Scale 04/06/19 06/29/23 (Tylenol Extra Strength) Score 1-3) Previous Rx's Medication Instructions Recorded blood-glucose meter #1 ea 10/06/21 lancets #200 ea 10/06/21 lidocaine-prilocaine 2.5 %-2.5 % 1 applic topical PRN PRN Pain #30 10/26/21 topical cream grams ezetimibe 10 mg tablet See Rx Instructions .Route 10/26/22 .COMPLEX #90 tabs amlodipine 5 mg tablet 5 mg PO DAILY #90 tabs 12/20/22 blood sugar diagnostic (Blood #50 ea 12/20/22 Glucose Test strips) metformin 1,000 mg tablet 1,000 mg PO BID #180 tabs 12/20/22 Disabled Parking Permint #1 ea 02/21/23 docusate sodium 250 mg capsule 250 mg PO DAILY #20 caps 06/14/23 oxycodone-acetaminophen 5 mg-325 1 tab PO Q6H PRN pain #10 tabs 06/14/23 mg tablet losartan 50 mg-hydrochlorothiazide See Rx Instructions .Route 06/27/23 12.5 mg tablet .COMPLEX #90 tabs ciprofloxacin HCl 500 mg tablet 500 mg PO BID #20 tabs 06/29/23 Allergies Allergy/AdvReac Type Severity Reaction Status Date / Time No Known Drug Allergies Allergy Verified 08/06/23 22:49 Review of Systems Review of Systems Narrative: See HPI for pertinent positives, otherwise review of systems negative Patient History Medical History Skin lesion Anemia Medicare annual wellness visit, subsequent Well adult exam Immunotherapy History of urinary tract infection Lesion of bladder Pulmonary nodule Gross hematuria Cirrhosis Splenomegaly 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Osteoarthritis of left shoulder Right hip pain Strain of tendon of left rotator cuff 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EASTON (nonalcoholic steatohepatitis) (10/2014) Hyperglycemia (Unknown) Diverticular disease (Unknown) Carpal tunnel syndrome (Unknown) Hyperlipemia (Unknown) Hypertension (Unknown) Surgical History History of partial mastectomy of left breast (07/29/21) Hx of eye surgery History of surgery H/O right wrist surgery Hx of cholecystectomy Hx of cataract surgery (Unknown) Hx of appendectomy (Unknown) History of carpal tunnel release (Unknown) Status post cholecystectomy Family History Father Cancer Mother Cancer Other Carcinoma of upper-outer quadrant of left female breast Social History marital status: number of children: 3 household members: none occupational status: previously employed Smoking Status: Never smoker alcohol intake: never substance use type: does not use Smoking Status: Never smoker alcohol intake frequency: 0-2 drinks per day Substance Use Type: does not use Exam Narrative Exam Narrative: General:? Awake, alert, lying in bed during both exam and interview and in no apparent distress HEENT:? Normocephalic, atraumatic, pupils equal and reactive to light, trachea midline, neck is supple, normal range of motion Chest:? Normal to inspection, no crepitus, no tenderness Cardiovascular:? 2+ radial bilaterally, regular rhythm/rate. Pulmonary:? Regular respirations, no respiratory distress, Abdomen:? Soft, nontender, distended abdomen, no guarding or rebound tenderness, no hernia :? Exam deferred Skin:? Warm, dry, intact, no rashes Extremities:? No deformities of bilateral upper/lower extremities, nontender Neuro:? No focal neurological deficits, moving all 4 extremities equally, normal gait, normal speech Psych:? Normal mood, normal affect normal attention Initial Vital Signs Initial Vital Signs: Vital Signs Pulse Rate 83 08/06/23 22:35 Pulse Oximetry 97 08/06/23 22:35 Course Course Course Narrative: See MDM Orders Ordered: ED Orders 08/06/23 22:31 Urinalysis and Microscopic Stat 08/06/23 22:55 CBC Auto Diff [Complete Blood Count AUTO DIFF] Stat CMP [Comprehensive Metabolic Panel] Stat 08/06/23 23:45 CT abdomen pelvis w con Stat 08/07/23 02:05 Lactate (Lactic Acid) Stat Procalcitonin Stat 08/07/23 03:01 Blood Culture Stat Acetaminophen (Acetaminophen 325 Mg Tablet) 650 mg PO Q6H PRN PRN Reason: Fever/Mild Pain (1-3) Sodium Chloride (Normal Saline 0.9%) 1,000 mls @ 100 mls/hr IV CONT PATI Last Admin: 08/07/23 05:50 Dose: 100 mls/hr Insulin Human Regular (Insulin Regular 100 Unit/Ml 3 Ml Vial) 0 unit SUBCUT ACHS PATI; Protocol Metformin HCl (Metformin Hcl 500 Mg Tablet) 1,000 mg PO BID PATI Multivitamins (Multivitamin 1 Tablet) 1 tab PO DAILY PATI Naloxone HCl (Naloxone 0.4 Mg/Ml Vial) 0.2 mg IV Q2MIN PRN PRN Reason: Opiate Reversal Ondansetron HCl (Ondansetron 4 Mg/2 Ml Inj) 4 mg IV Q4HR PRN PRN Reason: nausea Ondansetron HCl (Ondansetron 4 Mg Odt) 4 mg PO Q4HR PRN PRN Reason: nausea Oxycodone/Acetaminophen (Oxycodone/Acetaminophen 5/325 Tablet) 1 tab PO Q6H PRN PRN Reason: pain Discontinued Medications Filgrastim (Filgrastim-Aafi 300 Mcg/0.5 Ml Syringe) 300 mcg SUBCUT NOW ONE Stop: 08/07/23 05:08 Sodium Chloride (Normal Saline 0.9%) 1,000 mls @ 1,000 mls/hr IV BOLUS ONE Stop: 08/07/23 00:27 Last Infusion: 08/07/23 01:53 Dose: Infused Documented By: Admin: 08/07/23 00:37 Dose: 1,000 mls/hr Documented By: SUNNY Ondansetron HCl (Ondansetron 4 Mg/2 Ml Inj) 4 mg IV NOW ONE Stop: 08/07/23 01:18 Last Admin: 08/07/23 01:20 Dose: 4 mg Documented By: SUNNY Potassium Chloride (Potassium Chloride 20 Meq/15 Ml Udc) 40 meq PO NOW ONE Stop: 08/07/23 00:45 Last Admin: 08/07/23 00:00 Dose: 40 meq Documented By: SUNNY Vital Signs Vital signs: Vital Signs - 8 hr 08/06/23 23:00 08/06/23 23:00 08/06/23 23:30 Pulse Rate 79 Blood Pressure 110/52 L 115/57 L Pulse Oximetry 97 08/06/23 23:30 08/07/23 00:03 08/07/23 00:04 Pulse Rate 81 Blood Pressure 116/56 L Pulse Oximetry 97 84 L 08/07/23 00:04 08/07/23 00:30 08/07/23 01:00 Pulse Rate 83 75 78 Blood Pressure Pulse Oximetry 98 96 96 08/07/23 01:30 08/07/23 02:00 08/07/23 02:30 Pulse Rate 76 78 79 Blood Pressure Pulse Oximetry 96 96 96 08/07/23 03:00 08/07/23 03:30 08/07/23 03:38 Pulse Rate 78 81 80 Blood Pressure Pulse Oximetry 97 96 96 08/07/23 03:38 08/07/23 04:00 08/07/23 04:00 Pulse Rate 73 Blood Pressure 105/52 L 106/53 L Pulse Oximetry 95 08/07/23 04:30 Pulse Rate 76 Blood Pressure Pulse Oximetry 95 MDM - Nausea/Vomiting/Diarrhea Differential Diagnosis Differential diagnosis: Likely gastroenteritis, clostridium difficile infection, drug-induced nausea and vomiting, dehydration and other (Chemotherapy associated colitis/gastroenteritis) Lab Data Lab results narrative: Neutropenia with hyponatremia, hypokalemia and anemia 08/06/23 22:55 08/06/23 22:55 Labs: Lab Results 08/06/23 Range/Units 22:55 WBC 1.4 L* (4.5-11.0) X10^3/uL RBC 2.97 L (4.0-5.2) X10^6/uL Hgb 9.6 L (12.0-16.0) g/dL Hct 28.4 L (36-46) % MCV 95.8 (80-100) fL MCH 32.5 (26-34) PG MCHC 33.9 (30-36) % RDW 14.5 (11.6-14.8) % Plt Count 94 L (150-400) X10^3/uL Neut % (Auto) Not Reportable Lymph % (Auto) Not Reportable [place] % (Auto) Not Reportable Eos % (Auto) Not Reportable Baso % (Auto) Not Reportable Lymph # (Auto) Not Reportable [place] # (Auto) Not Reportable Baso # (Auto) Not Reportable Total Counted 100 Seg Neutrophils % 38.0 (38-70) % Band Neutrophils % 2.0 L (3-7) % Lymphocytes % (Manual) 35.0 (25-45) % Atypical Lymphs % 2.0 H ( - 0) % Monocytes % (Manual) 9.0 (2-11) % Eosinophils % (Manual) 14.0 H (2-4) % Neutrophils # (Manual) 560 L (9534-0603) /uL RBC Morphology Normal morphology Sodium 131 L (137-145) mmol/L Potassium 3.2 L (3.4-5.1) mmol/L Chloride 104 (98-107) mmol/L Carbon Dioxide 19 L (22-32) mmol/L BUN 27 H (7-17) mg/dL Creatinine 0.80 (0.52-1.04) mg/dL Estimated GFR > 60 (>60) mL/min BUN/Creatinine Ratio 33.8 H (6-22) Glucose 140 H (80-110) mg/dL Lactate 1.8 (0.7-2.1) mmol/L Calcium 8.7 (8.4-10.2) mg/dL Total Bilirubin 1.1 (0.2-1.3) mg/dL AST 38 H (14-36) IU/L ALT 38 H (<35) IU/L Alkaline Phosphatase 134 H (38-126) U/L Total Protein 6.4 (6.3-8.2) g/dL Albumin 2.8 L (3.5-5.0) g/dL Globulin 3.6 (1.7-4.1) g/dL Albumin/Globulin Ratio 0.8 L (1.0-2.8) Procalcitonin 0.16 (<0.5) ng/mL MDM Narrative Medical decision making narrative: Patient presents with nausea vomiting diarrhea. Current vital signs within normal limits/nonactionable. Imaging consistent with gastroenteritis and may be more associated with chemotherap. IV fluids given along with potassium as hypokalemia hyponatremia noted. Leukopenia noted. Patient stable and warrants admission for further evaluation and management. Discharge Plan Departure Patient Disposition: Admitted As Inpatient Clinical Impression: Gastroenteritis, Hypokalemia, Acute dehydration Admit Date/Time: 08/07/23 04:45 Admit Provider: Jason Terry
[2023-08-06 23:34] LABS: Neutrophils Absolute Manual 560 /uL (3000-5900); RBC Morphology Normal Morphology; Total Cells Counted 100
--- NOTE | 2023-08-06 23:45 | DI.CT.S_ITS ---
PROCEDURE: CT ABDOMEN PELVIS W CON INDICATIONS: abd pain TECHNIQUE: After the administration of intravenous contrast, axial sections acquired from the lung bases to the pubic symphysis. Coronal and sagittal reformats were performed. For radiation dose reduction, the following was used: automated exposure control, adjustment of mA and/or kV according to patient size. COMPARISON: [facility], CT, CT ABDOMEN PELVIS W CON, 11/22/2021, 13:41. FINDINGS: Image quality: Diagnostic. Lower Chest: No significant findings. ABDOMEN: Liver: Cirrhotic appearing liver is seen with small liver size and nodular liver contour. No discrete solid appearing hepatic lesion is seen. Gallbladder: Gallbladder is surgically absent. Biliary ducts: No biliary dilation. Pancreas: No ductal dilation. Spleen: There is splenomegaly, no discrete splenic lesion. Adrenal Glands: No adrenal nodules. Kidneys and Ureters: No hydronephrosis. No solid mass. No complex renal cystic lesion which requires follow up. Stomach and Bowel: There is no evidence of bowel obstruction. Small hiatal hernia is seen. Wall thickening involving stomach and duodenum is seen concerning for low-grade gastroenteritis. There is also questionable wall thickening involving ascending colon and distal small bowel loops in right lower quadrant concerning for enterocolitis. No abscess collection is seen. Peritoneum: Moderate ascites fluid is again seen in abdomen and pelvis. No gross peritoneal free air. Ventral Wall: No hernia. Abdominal Nodes: No retroperitoneal or mesenteric adenopathy by size criteria. Vessels: Aorta and inferior vena cava are normal in size. PELVIS: Pelvic Organs: Unremarkable. Bladder: Unremarkable. Pelvic Nodes: No enlarged lymph nodes. Miscellaneous: No inguinal hernias are seen. Bones: No aggressive osseous abnormality. No acute vertebral body compression fracture. IMPRESSION: 1. Finding is concerning for low-grade gastroenteritis and low to moderate grade enterocolitis as above. No abscess collection. 2. Moderate amount of ascites fluid. No peritoneal free air. 3. Cirrhotic appearing liver and splenomegaly unchanged from prior study. Dictated by: Saeid Govea M.D. on 08/07/2023 at 0:28 Approved by: Saeid Govea M.D. on 08/07/2023 at 0:31
[2023-08-07] VITALS (16 sets, daily range): BP systolic 105–140; BP diastolic 52–65; PULSE 73–91; RESP 20; TEMP 36.8–36.9; O2SAT 84–99; BMI 27.4
[2023-08-07] MEDS: POTASSIUM CHLORIDE 20 MEQ/15 ML UDC 40 MEQ PO
[2023-08-07] MEDS: SODIUM CHLORIDE 0.9% 1,000 ML 1000 ML IV (00:37)
[2023-08-07] MEDS: ONDANSETRON 4 MG/2 ML INJ IV (01:20)
[2023-08-07 02:41] LABS: Lactate (Lactic Acid) 1.8 mmol/L (0.7-2.1)
[2023-08-07 02:59] LABS: Procalcitonin 0.16 ng/mL (<0.5)
--- NOTE | 2023-08-07 05:09 | P.HP_ITS ---
History of Present Illness History of Present Illness Chief complaint: NVD 12 days since Chemo treatment Narrative: 82 y/o with PMH of breast carcinoma, presented to ED with nausea, vomiting, diarrhea, evidence of gastroenteritis/colitis on CT, almost 2 weeks after her chemotherapy. On admission neutropenic / pancytopenic, hypokalemic, hyponatremic. In the ED she had K and NS. Not septic, afebrile, procalcitonin and LA WNR. 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 In June 2023 biopsy of the right upper lung lesion confirmed metastasis. 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 On 07/14 seen at [place] with Influenza, D8 of infusion deferred. On 07/20 D8 infusion deferred again due to N count of 300. She was on Levaquin 500 mg po daily for 1 week, until 07/27. N count went up to 1500 and she had infusion.Since then symptomatic, as above. [facility] Medical History Skin lesion Anemia Medicare annual wellness visit, subsequent Well adult exam Immunotherapy History of urinary tract infection Lesion of bladder Pulmonary nodule Gross hematuria Cirrhosis Splenomegaly 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Osteoarthritis of left shoulder Right hip pain Strain of tendon of left rotator cuff 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[place] (nonalcoholic steatohepatitis) (10/2014) Hyperglycemia (Unknown) Diverticular disease (Unknown) Carpal tunnel syndrome (Unknown) Hyperlipemia (Unknown) Hypertension (Unknown) Surgical History History of partial mastectomy of left breast (07/29/21) Hx of eye surgery History of surgery H/O right wrist surgery Hx of cholecystectomy Hx of cataract surgery (Unknown) Hx of appendectomy (Unknown) History of carpal tunnel release (Unknown) Status post cholecystectomy Family History Father Cancer Mother Cancer Other Carcinoma of upper-outer quadrant of left female breast Social History marital status: number of children: 3 household members: none occupational status: previously employed Smoking Status: Never smoker alcohol intake: never substance use type: does not use Meds Home Medications and Allergies Home Medications Medication Instructions Recorded Confirmed Type multivitamin 1 tab PO DAILY ##0 12/01/10 06/29/23 History acetaminophen 500 mg tablet 500 mg PO Q6H PRN Pain (Scale 04/06/19 06/29/23 History (Tylenol Extra Strength) Score 1-3) blood-glucose meter #1 ea 10/06/21 06/29/23 Rx lancets #200 ea 10/06/21 06/29/23 Rx lidocaine-prilocaine 2.5 %-2.5 % 1 applic topical PRN PRN Pain #30 10/26/21 06/29/23 Rx topical cream grams ezetimibe 10 mg tablet See Rx Instructions .Route 10/26/22 06/29/23 Rx .COMPLEX #90 tabs amlodipine 5 mg tablet 5 mg PO DAILY #90 tabs 12/20/22 06/29/23 Rx blood sugar diagnostic (Blood #50 ea 12/20/22 06/29/23 Rx Glucose Test strips) metformin 1,000 mg tablet 1,000 mg PO BID #180 tabs 12/20/22 06/29/23 Rx Disabled Parking Permint #1 ea 02/21/23 06/29/23 Rx docusate sodium 250 mg capsule 250 mg PO DAILY #20 caps 06/14/23 06/29/23 Rx oxycodone-acetaminophen 5 mg-325 1 tab PO Q6H PRN pain #10 tabs 06/14/23 06/29/23 Rx mg tablet losartan 50 mg-hydrochlorothiazide See Rx Instructions .Route 06/27/23 06/29/23 Rx 12.5 mg tablet .COMPLEX #90 tabs ciprofloxacin HCl 500 mg tablet 500 mg PO BID #20 tabs 06/29/23 06/29/23 Rx Allergies Allergy/AdvReac Type Severity Reaction Status Date / Time No Known Drug Allergies Allergy Verified 08/06/23 22:49 Review of Systems Review of Systems Narrative: Unobtainable from the pt - in ED unavailable for an interview Exam Vital Signs (past 8 hours): - 08/06/23 22:35 08/06/23 22:36 08/06/23 22:54 Temperature 98.2 F Pulse Rate 83 80 Respiratory Rate 16 Blood Pressure 127/86 112/57 L Pulse Oximetry 97 96 Oxygen Delivery Method Room Air 08/06/23 22:54 08/06/23 23:00 08/06/23 23:00 Temperature Pulse Rate 77 79 Respiratory Rate Blood Pressure 110/52 L Pulse Oximetry 97 97 Oxygen Delivery Method 08/06/23 23:30 08/06/23 23:30 08/07/23 00:03 Temperature Pulse Rate 81 Respiratory Rate Blood Pressure 115/57 L Pulse Oximetry 97 84 L Oxygen Delivery Method 08/07/23 00:04 08/07/23 00:04 08/07/23 00:30 Temperature Pulse Rate 83 75 Respiratory Rate Blood Pressure 116/56 L Pulse Oximetry 98 96 Oxygen Delivery Method 08/07/23 01:00 08/07/23 01:30 08/07/23 02:00 Temperature Pulse Rate 78 76 78 Respiratory Rate Blood Pressure Pulse Oximetry 96 96 96 Oxygen Delivery Method 08/07/23 02:30 08/07/23 03:00 Temperature Pulse Rate 79 78 Respiratory Rate Blood Pressure Pulse Oximetry 96 97 Oxygen Delivery Method Oxygen Delivery Method Room Air Narrative Exam Narrative: she is unavailable for telemedicine visit Objective Labs 08/06/23 22:55 08/06/23 22:55 Labs: Laboratory Results - last 24 hr 08/06/23 22:55 WBC 1.4 L* RBC 2.97 L Hgb 9.6 L Hct 28.4 L MCV 95.8 MCH 32.5 MCHC 33.9 RDW 14.5 Plt Count 94 L Neut % (Auto) Not Reportable Lymph % (Auto) Not Reportable [place] % (Auto) Not Reportable Eos % (Auto) Not Reportable Baso % (Auto) Not Reportable Lymph # (Auto) Not Reportable [place] # (Auto) Not Reportable Baso # (Auto) Not Reportable Total Counted 100 Seg Neutrophils % 38.0 Band Neutrophils % 2.0 L Lymphocytes % (Manual) 35.0 Atypical Lymphs % 2.0 H Monocytes % (Manual) 9.0 Eosinophils % (Manual) 14.0 H Neutrophils # (Manual) 560 L RBC Morphology Normal morphology Sodium 131 L Potassium 3.2 L Chloride 104 Carbon Dioxide 19 L BUN 27 H Creatinine 0.80 Estimated GFR > 60 BUN/Creatinine Ratio 33.8 H Glucose 140 H Lactate 1.8 Calcium 8.7 Total Bilirubin 1.1 AST 38 H ALT 38 H Alkaline Phosphatase 134 H Total Protein 6.4 Albumin 2.8 L Globulin 3.6 Albumin/Globulin Ratio 0.8 L Procalcitonin 0.16 Assessment & Plan Assessment and plan (1) Gastroenteritis: Status: Acute Plan: GI panel pending - suportive care, antiemetics (2) Pancytopenia: Status: Acute Plan: - neutropenic precautions - CSF subcut x 1 - CBC + diff monitored - 2nd to chemoTx (3) Breast cancer metastasized to axillary lymph node: Qualifiers: Laterality: left Qualified Code(s): C50.912 - Malignant neoplasm of unspecified site of left female breast; C77.3 - Secondary and unspecified malignant neoplasm of axilla and upper limb lymph nodes Status: Acute Plan: follows with oncology Lt breast tripple negative carcinoma with Rt upper lung metastasis (4) Hypokalemia: Status: Acute Plan: monitored electrolytes - supplemented (5) Hyponatremia: Status: Acute Plan: monitored electrolytes - IVFs (6) Essential hypertension: Status: Chronic Plan: holding home Losartan 50 / HCTZ 12.5 and Norvasc 5 mg (7) Controlled type 2 diabetes mellitus without complication: Qualifiers: Diabetes mellitus long term care administrator insulin use: without long term care administrator use Qualified Code(s): E11.9 - Type 2 diabetes mellitus without complications Status: Chronic Plan: Metformin, SS, CCD (8) Mixed hyperlipidemia: Status: Chronic Plan: - ezetimibe at home - restart when GI symptoms resolved
[2023-08-07] MEDS: SODIUM CHLORIDE 0.9% 1,000 ML 100 ML IV (05:50)
[2023-08-07] MEDS: FILGRASTIM-AAFI 300 MCG/0.5 ML SYRINGE SUBCUT (07:22)
[2023-08-07 07:23] LABS: Hematocrit 25.1 % (36-46); Hemoglobin 8.5 g/dL (12.0-16.0); Mean Corpuscular HGB Conc 33.7 % (30-36); Mean Corpuscular Hemoglobin 32.4 PG (26-34); Mean Corpuscular Volume 96.3 fL (80-100); Platelet Count 72 X10^3/uL (150-400); Red Blood Cell Count 2.61 X10^6/uL (4.0-5.2); Red Cell Distribution Width 14.5 % (11.6-14.8)
[2023-08-07 07:25] LABS: Add Manual Diff / Slide Review YES
[2023-08-07 07:26] LABS: White Blood Cell Count 1.1 X10^3/uL (4.5-11.0)
[2023-08-07 07:27] LABS: BUN Creatinine Ratio 33.3 (6-22); Blood Urea Nitrogen 24 mg/dL (7-17); Calcium 8.4 mg/dL (8.4-10.2); Carbon Dioxide 21 mmol/L (22-32); Chloride 106 mmol/L (98-107); Estimated Glomerular Filt Rate > 60 mL/min (>60); Glucose 114 mg/dL (80-110); HEMOLYSIS < 15 (0-50); Potassium 3.2 mmol/L (3.4-5.1); Sodium 132 mmol/L (137-145)
[2023-08-07 08:21] LABS: Magnesium 1.7 mg/dL (1.6-2.3)
[2023-08-07] MEDS: MULTIVITAMIN 1 TABLET 1 TAB PO (08:32)
--- NOTE | 2023-08-07 09:02 | P.HP_ITS ---
History of Present Illness History of Present Illness Date Patient Seen: 08/07/23 Chief complaint: NVD 12 days since Chemo treatment Narrative: 82 y/o with PMH of HTN, DM, metastatic breast carcinoma, on chemo, presented to ED with nausea, vomiting, diarrhea, evidence of gastroenteritis/colitis on CT, approximately 10 days after her chemotherapy. On admission neutropenic / pancytopenic, hypokalemic, hyponatremic. In the ED she had K and NS. Not septic, afebrile, procalcitonin and LA WNR. 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 In June 2023 biopsy of the right upper lung lesion confirmed metastasis. 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 On 07/14 seen at [facility] with Influenza, D8 of infusion deferred. On 07/20 D8 infusion deferred again due to N count of 300. She was on Levaquin 500 mg po daily for 1 week, until 07/27. N count went up to 1500 and she had chemo infusion on 07/28. Since last chemo she has had persistent diarrhea, currently 3 times daily, vomited once only, feels weak but has not fallen, poor appetite, able to take fluids by mouth. Lives alone but has good family supprot, states kids see her daily. [facility] Medical History Skin lesion Anemia Medicare annual wellness visit, subsequent Well adult exam Immunotherapy History of urinary tract infection Lesion of bladder Pulmonary nodule Gross hematuria Cirrhosis Splenomegaly 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Osteoarthritis of left shoulder Right hip pain Strain of tendon of left rotator cuff 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EASTON (nonalcoholic steatohepatitis) (10/2014) Hyperglycemia (Unknown) Diverticular disease (Unknown) Carpal tunnel syndrome (Unknown) Hyperlipemia (Unknown) Hypertension (Unknown) Surgical History History of partial mastectomy of left breast (07/29/21) Hx of eye surgery History of surgery H/O right wrist surgery Hx of cholecystectomy Hx of cataract surgery (Unknown) Hx of appendectomy (Unknown) History of carpal tunnel release (Unknown) Status post cholecystectomy Family History Father Cancer Mother Cancer Other Carcinoma of upper-outer quadrant of left female breast Social History marital status: number of children: 3 household members: none occupational status: previously employed Smoking Status: Never smoker alcohol intake: never substance use type: does not use Meds Home Medications and Allergies Home Medications Medication Instructions Recorded Confirmed Type multivitamin 1 tab PO DAILY ##0 12/01/10 06/29/23 History acetaminophen 500 mg tablet 500 mg PO Q6H PRN Pain (Scale 04/06/19 06/29/23 History (Tylenol Extra Strength) Score 1-3) blood-glucose meter #1 ea 10/06/21 06/29/23 Rx lancets #200 ea 10/06/21 06/29/23 Rx lidocaine-prilocaine 2.5 %-2.5 % 1 applic topical PRN PRN Pain #30 10/26/21 06/29/23 Rx topical cream grams ezetimibe 10 mg tablet See Rx Instructions .Route 10/26/22 06/29/23 Rx .COMPLEX #90 tabs amlodipine 5 mg tablet 5 mg PO DAILY #90 tabs 12/20/22 06/29/23 Rx blood sugar diagnostic (Blood #50 ea 12/20/22 06/29/23 Rx Glucose Test strips) metformin 1,000 mg tablet 1,000 mg PO BID #180 tabs 12/20/22 06/29/23 Rx Disabled Parking Permint #1 ea 02/21/23 06/29/23 Rx docusate sodium 250 mg capsule 250 mg PO DAILY #20 caps 06/14/23 06/29/23 Rx oxycodone-acetaminophen 5 mg-325 1 tab PO Q6H PRN pain #10 tabs 06/14/23 06/29/23 Rx mg tablet losartan 50 mg-hydrochlorothiazide See Rx Instructions .Route 06/27/23 06/29/23 Rx 12.5 mg tablet .COMPLEX #90 tabs ciprofloxacin HCl 500 mg tablet 500 mg PO BID #20 tabs 06/29/23 06/29/23 Rx Allergies Allergy/AdvReac Type Severity Reaction Status Date / Time No Known Drug Allergies Allergy Verified 08/06/23 22:49 Exam Vital Signs (past 8 hours): - 08/07/23 01:30 08/07/23 02:00 08/07/23 02:30 Temperature Pulse Rate 76 78 79 Respiratory Rate Blood Pressure Pulse Oximetry 96 96 96 Oxygen Flow Rate 08/07/23 03:00 08/07/23 03:30 08/07/23 03:38 Temperature Pulse Rate 78 81 80 Respiratory Rate Blood Pressure Pulse Oximetry 97 96 96 Oxygen Flow Rate 08/07/23 03:38 08/07/23 04:00 08/07/23 04:00 Temperature Pulse Rate 73 Respiratory Rate Blood Pressure 105/52 L 106/53 L Pulse Oximetry 95 Oxygen Flow Rate 08/07/23 04:30 08/07/23 05:00 08/07/23 05:30 Temperature Pulse Rate 76 75 76 Respiratory Rate Blood Pressure Pulse Oximetry 95 95 91 Oxygen Flow Rate 08/07/23 08:33 Temperature 98.3 F Pulse Rate 80 Respiratory Rate 20 Blood Pressure 115/55 L Pulse Oximetry 99 Oxygen Flow Rate 0 Oxygen Delivery Method Room Air Oxygen Flow Rate 0 Narrative Exam Narrative: Gen: alert, cooperative, NAD HEENT: anicteric, mucosa moist Neck: no enlarged LN, no soft tissue masses Lungs: breathing non-labored, CTA CV: regular, sl systolic murmur Abd: active BS, soft, nt, no HSM Ext: no edema Neuro: flat affect, nl speech Objective Labs 08/07/23 06:55 08/07/23 06:55 Labs: Laboratory Results - last 24 hr 08/06/23 08/07/23 22:55 06:55 WBC 1.4 L* 1.1 L* RBC 2.97 L 2.61 L Hgb 9.6 L 8.5 L Hct 28.4 L 25.1 L MCV 95.8 96.3 MCH 32.5 32.4 MCHC 33.9 33.7 RDW 14.5 14.5 Plt Count 94 L 72 L Neut % (Auto) Not Reportable Not Reportable Lymph % (Auto) Not Reportable Not Reportable [place] % (Auto) Not Reportable Not Reportable Eos % (Auto) Not Reportable Not Reportable Baso % (Auto) Not Reportable Not Reportable Lymph # (Auto) Not Reportable Not Reportable [place] # (Auto) Not Reportable Not Reportable Baso # (Auto) Not Reportable Not Reportable Total Counted 100 Seg Neutrophils % 38.0 Band Neutrophils % 2.0 L Lymphocytes % (Manual) 35.0 Atypical Lymphs % 2.0 H Monocytes % (Manual) 9.0 Eosinophils % (Manual) 14.0 H Neutrophils # (Manual) 560 L RBC Morphology Normal morphology Sodium 131 L 132 L Potassium 3.2 L 3.2 L Chloride 104 106 Carbon Dioxide 19 L 21 L BUN 27 H 24 H Creatinine 0.80 0.72 Estimated GFR > 60 > 60 BUN/Creatinine Ratio 33.8 H 33.3 H Glucose 140 H 114 H Lactate 1.8 Calcium 8.7 8.4 Magnesium 1.7 Total Bilirubin 1.1 AST 38 H ALT 38 H Alkaline Phosphatase 134 H Total Protein 6.4 Albumin 2.8 L Globulin 3.6 Albumin/Globulin Ratio 0.8 L Procalcitonin 0.16 Assessment & Plan Assessment & Plan narrative: 1. Side effects of chemotherapy -pt developed GI symptoms 1 day after last chemo, main symptoms seem to be poor appetite and weakness -CT non-specific enteritis findings, doubt infectious with absence of feve and benign exam -can manage conservatively since only having 3 BM a day and not actively vomiting -rec'd IV fluids, can d/c IV fluids and encourage po -hold off abx for now 2. Pancytopenia secondary to chemo -hx triple neg cancer with met to rt lung -Fligastrim 300 mcg given 08/07/23 3. Mild hypokalemia and hyponatremia -received oral Kcl and NS 4. Essential HTN -hold meds -pt advised to check BP at home and hold meds if BP running normal 5. Diabetes -hold metformin due to diarrhea and dec po intake -pt advised to not take metformin at home if sugars are running near normal range 6. Mixed hyperlipidemia -hold ezetimibe 7. Weakness secondary to chemo -PT consult Pt currently not requiring further active therapy. Re-evaluate for discharge home after seen by PT.
--- NOTE | 2023-08-07 09:15 | CM.DANOTE ---
Addendum entered by JULIA Loomis 08/07/23 10:19: ADD: Per RN, REAL ESTATE CONSULTANT was able to ambulate pt short distance SBA with FWW and no current PT eval need. SW updated MD and likely pt stable for d/c back home this afternoon with family assist and requested SW determine if pt is agreeable with HH as she is fatigued and weak and below baseline. SW met bedside with pt again and discussed HH services and frequency and pt declines need for HH and states she is agreeable to d/c home today and feels her family will provide additional check ins and assist for her once home and therefore does not feel HH needed. SW updated MD. BF Original Note: Patient is an 82 yo female who was admitted on 08/07/23 for Pancytopenia and poss Gastroenteritis. Pt has MCR and [employer] for insurance and her PCP is Dr. Darion Clifford. EMR was reviewed. Per MD, pt with hx of breast CA with recent mets and getting chemo at baseline and admitted for pancytopenia and r/o of gastroenteritis. SW met bedside with pt and explained role and she confirms she lives in [place] alone but has grandchild that lives nearby and two adult Dtrs who live locally and their other children too. Dtr Oanh lives in [facility] with her kids and visits when she can. Pt is mostly independent at baseline and states she uses a walker and goes very slowly for walking. Pt drives but only in [place] and family provides transport to her Oncologist Dr. Naik at [facility] for chemo. Pt denies any hx of SNF or HH. Pt states family has been able to assist in the past as needed and pt currently does not anticipate any needs at d/c but does have flat affect and provides brief answers and will need to confirm pt is safe for d/c home closer to discharge. Possible need for PT eval pending progress. Plan: SW to follow closely for further POC and MD to confirm pt still wanting to move forward with treatment vs comfort measures towards determining discharge planning needs. JULIA Loomis Discharge Planning/Care Management CM Discharge Assessment Start: 08/07/23 09:13 Freq: Status: Active Protocol: Document 08/07/23 09:13 BF (Rec: 08/07/23 09:15 BF [id number]) Discharge Planning Assessment Assigned Tutor Coordinator Lala, AUDIOMETRIC TECHNICIAN Advance Directives? Yes: Advance Directive Advance Directives on File No History Provided By Patient,Family Member,Medical Record Has Patient been admitted in last 30 No days? Prior Living Arrangements House Household Members none Type of transporation used prior to Drives own vehicle admit Comment Only drives in [place], otherwise family provides transport Independent with ADL's Yes Is patient alert and oriented? Yes Needs Assistance With Home Chores / Shopping Caregiver for Another No DME Already Rented / Owned FWW / Walker Comment r/o HH Barriers to Discharge No Discharge Plan Home Transportation Arrangement Family Whiteboard Updated in Patient Room with Yes name and ext. # of Tutor Coordinator Review Status In Process Please Provide Date Initial DC 08/07/23 Assessment Was Performed Next Review Type Continued Stay Review
[2023-08-07] MEDS: POTASSIUM CHLORIDE 20 MEQ TAB 40 MEQ PO (09:22)
[2023-08-07] MEDS: MAGNESIUM CHLORIDE 64 MG TABLET 128 MG PO (09:22)
[2023-08-07 10:15] LABS: Neutrophils Absolute Manual 495 /uL (3000-5900); Total Cells Counted 100
--- NOTE | 2023-08-07 10:15 | PT-IP ANOTE ---
Per SARAI, rocío and , pt has been up ambulating with nsg and does not need PT. Will d/c PT order.
[2023-08-07 10:16] LABS: RBC Morphology Normal Morphology
[2023-08-07 11:24] LABS: Adenovirus F 40/41 Not Detected (Not Detect); Astrovirus Not Detected (Not Detect); Campylobacter Not Detected (Not Detect); Clostridium difficile toxin AB Detected (Not Detect); Cryptosporidium Not Detected (Not Detect); Cyclospora cayetanensis Not Detected (Not Detect); Entamoeba histolytica Not Detected (Not Detect); Enteroaggregative E.coli Not Detected (Not Detect); Enteropathogenic E.coli Not Detected (Not Detect); Enterotoxigenic E.coli It/st Not Detected (Not Detect); Giardia lamblia Not Detected (Not Detect); Norovirus GI/GII Not Detected (Not Detect); Plesiomonsa shigelloides Not Detected (Not Detect); Rotavirus A Not Detected (Not Detect); Salmonella Not Detected (Not Detect); Sapovirus Not Detected (Not Detect); Shiga-like toxin-prod E.coli Not Detected (Not Detect); Shigella/Enteroinvasive E.coli Not Detected (Not Detect); Vibrio Not Detected (Not Detect); Vibrio cholerae Not Detected (Not Detect); Yersinia enterocolitica Not Detected (Not Detect)
[2023-08-07] MEDS: SODIUM CHLORIDE 0.9% 1,000 ML 75 ML IV (15:01)
[2023-08-07] MEDS: VANCOMYCIN 125 MG CAPSULE PO ×2 (19:19→23:54)
[2023-08-08] VITALS: BP 126/53; PULSE 87; TEMP 36.7; O2SAT 99
[2023-08-08] MEDS: SODIUM CHLORIDE 0.9% 1,000 ML 75 ML IV ×2 (04:13→18:18)
[2023-08-08 06:00] VITALS: BP 115/56; PULSE 76; TEMP 36.7; O2SAT 97
[2023-08-08] MEDS: VANCOMYCIN 125 MG CAPSULE PO ×3 (06:28→18:18)
[2023-08-08 07:00] LABS: Hematocrit 24.1 % (36-46); Hemoglobin 8.1 g/dL (12.0-16.0); Mean Corpuscular HGB Conc 33.8 % (30-36); Mean Corpuscular Hemoglobin 32.6 PG (26-34); Mean Corpuscular Volume 96.5 fL (80-100); Platelet Count 72 X10^3/uL (150-400); Red Blood Cell Count 2.49 X10^6/uL (4.0-5.2); Red Cell Distribution Width 15.1 % (11.6-14.8)
[2023-08-08 07:03] LABS: Add Manual Diff / Slide Review YES; White Blood Cell Count 1.7 X10^3/uL (4.5-11.0)
[2023-08-08 07:05] LABS: BUN Creatinine Ratio 25.4 (6-22); Blood Urea Nitrogen 16 mg/dL (7-17); Calcium 8.2 mg/dL (8.4-10.2); Carbon Dioxide 18 mmol/L (22-32); Chloride 110 mmol/L (98-107); Estimated Glomerular Filt Rate > 60 mL/min (>60); Glucose 87 mg/dL (80-110); HEMOLYSIS < 15 (0-50); Potassium 3.1 mmol/L (3.4-5.1); Sodium 133 mmol/L (137-145)
[2023-08-08 07:40] LABS: Neutrophils Absolute Manual 850 /uL (3000-5900); Nucleated Red Blood Cells 2 #/Diff; Total Cells Counted 50
[2023-08-08 07:42] LABS: Anisocytosis 1+
[2023-08-08] MEDS: POTASSIUM CHLORIDE 20 MEQ TAB 40 MEQ PO (09:31)
[2023-08-08] MEDS: MULTIVITAMIN 1 TABLET 1 TAB PO (09:31)
[2023-08-08] MEDS: MAGNESIUM SULFATE 2 GM/50 ML PIGGYBACK IV (09:32)
[2023-08-08 10:17] VITALS: BP 96/44; PULSE 76; RESP 20; TEMP 36.7; O2SAT 97
[2023-08-08 11:38] VITALS: BP 96/44; PULSE 76; RESP 20; TEMP 36.7; O2SAT 97
--- NOTE | 2023-08-08 11:48 | CM.DPC ---
DCP Cont: Per MD, pt tested CDiff+ and still having significant diarrhea and likely to remain here 1-2 days for treatment and once her bowel movements return more to normal then plan of d/c home with family support. SW briefly checked in with pt again today and she confirms that once she is feeling better she still does not feel HH will be needed. Plan: SW to follow closely for likely plan of d/c home when medically stable with local family support and to confirm pt still declines HH. JULIA Loomis
[2023-08-08 18:00] VITALS: BP 128/59; PULSE 59; RESP 20; TEMP 36.6; O2SAT 96
--- NOTE | 2023-08-08 18:40 | PM.PN.1 ---
Subjective Subjective Interval history: Patient now having 2 diarrhea episodes today, down from 10+ previously. She is feeling better. ANC up to 850 after granix yesterday. Exam Vital Signs (past 8 hours): - 08/08/23 11:38 Temperature 98.1 F Pulse Rate 76 Respiratory Rate 20 Blood Pressure 96/44 L Pulse Oximetry 97 Oxygen Flow Rate 0 Oxygen Delivery Method Room Air Oxygen Flow Rate 0 Narrative Exam Narrative: Gen: alert, cooperative, NAD HEENT: anicteric, mucosa moist Neck: no enlarged LN, no soft tissue masses Lungs: breathing non-labored, CTA CV: regular, sl systolic murmur Abd: active BS, soft, nt, no HSM Ext: no edema Neuro: flat affect, nl speech Objective Labs 08/08/23 06:20 08/08/23 06:20 Labs: Laboratory Results - last 24 hr 08/08/23 06:20 WBC 1.7 L* D RBC 2.49 L Hgb 8.1 L Hct 24.1 L MCV 96.5 MCH 32.6 MCHC 33.8 RDW 15.1 H Plt Count 72 L Neut % (Auto) Not Reportable Lymph % (Auto) Not Reportable [place] % (Auto) Not Reportable Eos % (Auto) Not Reportable Baso % (Auto) Not Reportable Lymph # (Auto) Not Reportable [place] # (Auto) Not Reportable Baso # (Auto) Not Reportable Total Counted 50 Seg Neutrophils % 42.0 Band Neutrophils % 8.0 H Lymphocytes % (Manual) 30.0 Atypical Lymphs % 2.0 H Monocytes % (Manual) 4.0 Eosinophils % (Manual) 14.0 H Neutrophils # (Manual) 850 L Nucleated RBCs 2 H RBC Morphology See below Anisocytosis 1+ H Sodium 133 L Potassium 3.1 L Chloride 110 H Carbon Dioxide 18 L BUN 16 Creatinine 0.63 Estimated GFR > 60 BUN/Creatinine Ratio 25.4 H Glucose 87 Calcium 8.2 L PFSH Medical History Skin lesion Anemia Medicare annual wellness visit, subsequent Well adult exam Immunotherapy History of urinary tract infection Lesion of bladder Pulmonary nodule Gross hematuria Cirrhosis Splenomegaly 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Osteoarthritis of left shoulder Right hip pain Strain of tendon of left rotator cuff 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[place] (nonalcoholic steatohepatitis) (10/2014) Hyperglycemia (Unknown) Diverticular disease (Unknown) Carpal tunnel syndrome (Unknown) Hyperlipemia (Unknown) Hypertension (Unknown) Surgical History History of partial mastectomy of left breast (07/29/21) Hx of eye surgery History of surgery H/O right wrist surgery Hx of cholecystectomy Hx of cataract surgery (Unknown) Hx of appendectomy (Unknown) History of carpal tunnel release (Unknown) Status post cholecystectomy Family History Father Cancer Mother Cancer Other Carcinoma of upper-outer quadrant of left female breast Social History marital status: number of children: 3 household members: none occupational status: previously employed Smoking Status: Never smoker alcohol intake: never substance use type: does not use Assessment & Plan Assessment & Plan narrative: 1. C. diff colitis -pt developed diarrhea up to 10x per day which started after her last chemo -CT non-specific enteritis -C. diff PCR positive -continue po vanc -diarrhea now improving to 2x per day 2. Pancytopenia secondary to chemo -hx triple neg cancer with met to rt lung -Fligastrim 300 mcg given 08/07/23 -ANC improving -will give additional dose if not >1000 by 08/09 3. Mild hypokalemia and hyponatremia -received oral Kcl and NS 4. Essential HTN -hold meds -pt advised to check BP at home and hold meds if BP running normal 5. Diabetes -hold metformin due to diarrhea and dec po intake -pt advised to not take metformin at home if sugars are running near normal range 6. Mixed hyperlipidemia -hold ezetimibe 7. Weakness secondary to chemo -improving, ambulatory Dispo: Likely home on 08/09 if diarrhea and ANC improving.
[2023-08-08] MEDS: OXYCODONE/ACETAMINOPHEN 5/325 TABLET 1 TAB PO (22:36)
[2023-08-09] VITALS: BP 123/50; PULSE 83; RESP 17; TEMP 36.8; O2SAT 96
[2023-08-09] MEDS: VANCOMYCIN 125 MG CAPSULE PO ×3 (00:50→12:47)
[2023-08-09 06:00] VITALS: BP 98/54; PULSE 77; RESP 15; TEMP 36.8; O2SAT 95
[2023-08-09] MEDS: SODIUM CHLORIDE 0.9% 1,000 ML 75 ML IV (06:18)
[2023-08-09 06:42] LABS: Hematocrit 25.5 % (36-46); Hemoglobin 8.5 g/dL (12.0-16.0); Mean Corpuscular HGB Conc 33.5 % (30-36); Mean Corpuscular Hemoglobin 32.8 PG (26-34); Mean Corpuscular Volume 97.9 fL (80-100); Platelet Count 77 X10^3/uL (150-400); Red Cell Distribution Width 15.1 % (11.6-14.8); White Blood Cell Count 2.4 X10^3/uL (4.5-11.0)
[2023-08-09 06:53] LABS: BUN Creatinine Ratio 19.7 (6-22); Blood Urea Nitrogen 12 mg/dL (7-17); Calcium 8.3 mg/dL (8.4-10.2); Carbon Dioxide 19 mmol/L (22-32); Chloride 110 mmol/L (98-107); Estimated Glomerular Filt Rate > 60 mL/min (>60); Glucose 102 mg/dL (80-110); HEMOLYSIS < 15 (0-50); Magnesium 2.1 mg/dL (1.6-2.3); Potassium 3.4 mmol/L (3.4-5.1); Sodium 132 mmol/L (137-145)
[2023-08-09 07:30] LABS: Neutrophils Absolute Manual 1128 /uL (3000-5900); Total Cells Counted 100
[2023-08-09 07:31] LABS: RBC Morphology Normal Morphology
[2023-08-09] MEDS: MULTIVITAMIN 1 TABLET 1 TAB PO (08:11)
[2023-08-09 10:26] VITALS: BP 98/49; PULSE 72; RESP 18; TEMP 36.7; O2SAT 96
--- NOTE | 2023-08-09 12:43 | PM.DS.1 ---
History of Present Illness History of Present Illness Date Patient Seen: 08/07/23 Chief complaint: NVD 12 days since Chemo treatment Narrative: 82 y/o with PMH of HTN, DM, metastatic breast carcinoma, on chemo, presented to ED with nausea, vomiting, diarrhea, evidence of gastroenteritis/colitis on CT, approximately 10 days after her chemotherapy. On admission neutropenic / pancytopenic, hypokalemic, hyponatremic. In the ED she had K and NS. Not septic, afebrile, procalcitonin and LA WNR. 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 In June 2023 biopsy of the right upper lung lesion confirmed metastasis. 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 On 07/14 seen at [place] with Influenza, D8 of infusion deferred. On 07/20 D8 infusion deferred again due to N count of 300. She was on Levaquin 500 mg po daily for 1 week, until 07/27. N count went up to 1500 and she had chemo infusion on 07/28. Since last chemo she has had persistent diarrhea, currently 3 times daily, vomited once only, feels weak but has not fallen, poor appetite, able to take fluids by mouth. Lives alone but has good family supprot, states kids see her daily. Discharge Providers Provider Date of admission: 08/07/23 04:45 Discharge Date: 08/09/23 Primary care physician: Darion Clifford DO Consults: 08/07/23 09:00 Consult to Physical Therapy Evaluate & Treat Comment: assess d/c home Physician Instructions: Evaluate and Treat Discharge provider: Robert Myers DO Summary Hospital Course Discharge Diagnosis: 1. C. diff colitis -pt developed diarrhea up to 10x per day which started after her last chemo -CT non-specific enteritis -C. diff PCR positive -continue po vanc -diarrhea now improving to 2x per day -will complete 10 days of po vanc at home 2. Pancytopenia secondary to chemo -hx triple neg cancer with met to rt lung -Fligastrim 300 mcg given 08/07/23 -ANC improving, now 1128 3. Mild hypokalemia and hyponatremia -received oral Kcl and NS 4. Essential HTN -hold meds -pt advised to check BP at home and hold meds if BP running normal 5. Diabetes -hold metformin due to diarrhea and dec po intake -pt advised to not take metformin at home if sugars are running near normal range 6. Mixed hyperlipidemia -hold ezetimibe 7. Weakness secondary to chemo -improving, ambulatory Hospital Course: Admitted for acute diarrhea. Found to be C. diff positive. Started on po vanc and her diarrhea vastly improved. Was pancytopenic and ANC low so granix given which raised it to >1000. She will finish po vanc at home for [address] Naik called and aware and he will f/up with her in clinic. Exam Vital Signs (past 8 hours): - 08/09/23 06:00 08/09/23 10:26 Temperature 98.3 F 98.1 F Pulse Rate 77 72 Respiratory Rate 15 18 Blood Pressure 98/54 L 98/49 L Pulse Oximetry 95 96 Oxygen Flow Rate 0 0 Oxygen Delivery Method Room Air Oxygen Flow Rate 0 Narrative Exam Narrative: Gen: alert, cooperative, NAD HEENT: anicteric, mucosa moist Neck: no enlarged LN, no soft tissue masses Lungs: breathing non-labored, CTA CV: regular, sl systolic murmur Abd: active BS, soft, nt, no HSM Ext: no edema Neuro: flat affect, nl speech Objective Labs 08/09/23 05:30 08/09/23 05:30 Labs: Laboratory Results - last 24 hr 08/09/23 05:30 WBC 2.4 L RBC 2.60 L Hgb 8.5 L Hct 25.5 L MCV 97.9 MCH 32.8 MCHC 33.5 RDW 15.1 H Plt Count 77 L Total Counted 100 Seg Neutrophils % 47.0 Lymphocytes % (Manual) 48.0 H Atypical Lymphs % 2.0 H Monocytes % (Manual) 3.0 Neutrophils # (Manual) 1128 L RBC Morphology Normal morphology Sodium 132 L Potassium 3.4 Chloride 110 H Carbon Dioxide 19 L BUN 12 Creatinine 0.61 Estimated GFR > 60 BUN/Creatinine Ratio 19.7 Glucose 102 Calcium 8.3 L Magnesium 2.1 [facility] Medical History Skin lesion Anemia Medicare annual wellness visit, subsequent Well adult exam Immunotherapy History of urinary tract infection Lesion of bladder Pulmonary nodule Gross hematuria Cirrhosis Splenomegaly 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Osteoarthritis of left shoulder Right hip pain Strain of tendon of left rotator cuff 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[place] (nonalcoholic steatohepatitis) (10/2014) Hyperglycemia (Unknown) Diverticular disease (Unknown) Carpal tunnel syndrome (Unknown) Hyperlipemia (Unknown) Hypertension (Unknown) Surgical History History of partial mastectomy of left breast (07/29/21) Hx of eye surgery History of surgery H/O right wrist surgery Hx of cholecystectomy Hx of cataract surgery (Unknown) Hx of appendectomy (Unknown) History of carpal tunnel release (Unknown) Status post cholecystectomy Family History Father Cancer Mother Cancer Other Carcinoma of upper-outer quadrant of left female breast Social History marital status: number of children: 3 household members: none occupational status: previously employed Smoking Status: Never smoker alcohol intake: never substance use type: does not use Discharge Plan Discharge Plan Patient Disposition: Home Provider Discharge Comment: You were diagnosed with C. diff which is a gut infection that causes diarrhea. This was likely caused by the recent antibiotics you were on. You will now finish 8 more days of oral vancomycin which treats the C. diff. This will complete 10 days of treatment. You are still technically contagious until your diarrhea resolves. But it should go away in the next few days. Please follow-up with Dr. Naik to determine next steps with your chemo. Dr. Myers Discharge orders & Medications Prescriptions: New vancomycin 125 mg Capsule 125 mg PO Q6H 8 Days Qty: 32 0RF Rx Instructions: start at 6pm on 08/09 Continued multivitamin Tablet 1 tab PO DAILY Qty: 0 (DME) Disabled Parking Permint See Rx Instructions .ROUTE .MEDSUPPLY Qty: 1 0RF Rx Instructions: I find this patient to be medically disabled and qualified for Disabled Parking as indicated and signed on the Accompanying Disabled Parking Application for individuals. losartan-hydrochlorothiazide 50-12.5 mg tablet See Rx Instructions .ROUTE .COMPLEX Qty: 90 2RF Dose Instruction: TAKE ONE TABLET BY MOUTH ONE TIME DAILY Rx Instructions: TAKE ONE TABLET BY MOUTH ONE TIME DAILY (DME) blood-glucose meter Misc See Rx Instructions .Route Qty: 1 0RF Rx Instructions: Check blood glucose BID (DME) lancets Misc See Rx Instructions .Route Qty: 200 0RF Rx Instructions: As directed amlodipine 5 mg tablet 5 mg PO DAILY Qty: 90 3RF (DME) Blood Glucose Test Strip See Rx Instructions .Route Qty: 50 6RF Rx Instructions: As directed acetaminophen [Tylenol Extra Strength] 500 mg tablet 500 mg PO Q6H PRN (Reason: Pain (Scale Score 1-3)) lidocaine-prilocaine 2.5-2.5 % Cream 1 applic topical PRN PRN (Reason: Pain) Qty: 30 0RF Rx Instructions: Apply to the skin over the port at least 2 hrs before planned use of the port. Cover the cream with a small piece of plastic wrap and leave in place until the port is accessed. oxycodone-acetaminophen 5-325 mg tablet 1 tab PO Q6H PRN (Reason: pain) Qty: 10 0RF docusate sodium 250 mg capsule 250 mg PO DAILY Qty: 20 0RF Rx Instructions: use any day that you also take a narcotic pain pill to prevent constipation ezetimibe [Zetia] 10 mg tablet See Rx Instructions .ROUTE .COMPLEX Rx Instructions: TAKE ONE TABLET BY MOUTH ONE TIME DAILY metformin 1,000 mg Tablet 1,000 mg PO DAILY Rx Instructions: at night Follow up/Referrals: Darion Clifford DO [Primary Care Provider] - 2 Weeks Visit Report/Discharge Packet Stand Alone Forms: Patient Portal/API, Stroke Signs & Symptoms Discharge Data Primary Care Provider: Darion Clifford Attending Provider: Jason Terry Admcinthya Date/Time: 08/07/23 04:45
[2023-08-10 14:12] LABS: C difficie Toxins A and B, EIA Negative (Negative)
== END 2023-08-09 14:42 | disposition home or self-care (01) ==
LOC: ED 08-07 03:38 → AC 08-07 04:46
PROVIDERS: Internal Medicine; Student in an Organized Health Care Education/Training Program; Admitting Provider Internal Medicine; Emergency Provider Emergency Medicine; Family Provider Family Medicine; PCP Family Medicine; Visit Provider Internal Medicine
DX: A04.72 Enterocolitis due to Clostridium difficile, not specified as recurrent (principal); E87.6 Hypokalemia; E87.1 Hypo-osmolality and hyponatremia; D61.818 Other pancytopenia; C50.912 Malignant neoplasm of unspecified site of left female breast; C77.3 Secondary and unspecified malignant neoplasm of axilla and upper limb lymph nodes; I10 Essential (primary) hypertension; E11.9 Type 2 diabetes mellitus without complications; E78.2 Mixed hyperlipidemia
CPT/HCPCS: 36415; 74177; 80048; 80053; 82962; 83605; 83735; 84145; 85007; 85025; 87040; 87324; 87507; 96361; 96372; 96374; 99284; G0378; J2405; J3475; Q5110; Q9967

== ENCOUNTER 2023-08-10 23:32 | Emergency (ER) | payer MEDICARE, SELFPAY ==
[2023-08-09 13:37] VITALS: BMI 27.4
[2023-08-10 23:37] VITALS: PULSE 90; O2SAT 97
[2023-08-10 23:38] VITALS: BP 135/58; PULSE 88; O2SAT 97
[2023-08-10 23:41] VITALS: BP 135/58; PULSE 86; RESP 18; TEMP 36.4; O2SAT 97; BMI 28.2
--- NOTE | 2023-08-10 23:45 | DI.CT.S_ITS ---
PROCEDURE: CT ABDOMEN PELVIS W CON INDICATIONS: ATRAUMATIC LUMBAR BACK PAIN/ABDOMINAL DISTENSION TECHNIQUE: After the administration of intravenous contrast, axial sections acquired from the lung bases to the pubic symphysis. Coronal and sagittal reformats were performed. For radiation dose reduction, the following was used: automated exposure control, adjustment of mA and/or kV according to patient size. COMPARISON: [facility], CT, CT ABDOMEN PELVIS W CON, 08/06/2023, 23:59. FINDINGS: Image quality: Diagnostic Lower chest: Bibasilar suspected atelectasis. Edva-va-rvugafle distal esophageal wall thickening is nonspecific. There also esophageal varices. Mild cardiomegaly partially seen. Liver: Cirrhosis. Gallbladder and biliary system: Gallbladder is absent. Mildly dilated biliary system post cholecystectomy again seen. Pancreas: Moderate atrophy, without pathologic ductal dilation Spleen: Splenomegaly Adrenals: Thickening again seen Kidneys: Bilateral cortical thinning. Subcentimeter lesions are too small to characterize, Bosniak 2. No hydronephrosis or solid mass. Vessels and lymph nodes: The main portal vein is patent. Flow direction cannot be determined on CT. There are left upper quadrant varices. No abdominal aortic aneurysm. No pathologic lymph nodes by size criteria. Bowel and peritoneum: Mild small and large bowel wall thickening. Moderate ascites, increased. Colonic diverticulosis. Moderate fecal loading. Body wall: Diffuse mild to moderate anasarca Pelvis: Bladder is under distended. Reproductive organs appear unremarkable on limited CT evaluation. Bones: Degenerative changes, no acute or suspicious findings. overall mild lumbar degenerative changes. IMPRESSION: Cirrhosis and sequela of portal hypertension. Moderate ascites, increased from prior. Consider future HCC surveillance imaging. Bowel wall thickening, particularly parts of the colon and distal small bowel, likely portable congestive enteropathy versus infectious/inflammation. Overall mild lumbar degenerative changes. If there is high concern for further derangement, consider MRI evaluation. Other findings as above. Dictated by: Pedro Early M.D. on 08/11/2023 at 1:27 Approved by: Pedro Early M.D. on 08/11/2023 at 1:35
--- NOTE | 2023-08-10 23:53 | ED_ITS ---
HPI - Back Pain/Injury <China Dowell MD - Last Filed: 08/17/23 07:17> General Chief Complaint: Back Pain/Injury Stated Complaint: back pain Time Seen by Provider: 08/10/23 23:33 Source: patient and EMS History of Present Illness HPI Narrative: 82-year-old female with history of metastatic breast cancer on chemotherapy (Sacituzumab), chemotherapy neutropenia s/p filgrastim 08/07/23, [place], recent history of C. diff colitis, currently on Vancomycin orally presents by EMS from home for lumbar back pain. Patient recently admitted to the hospital 08/06/2023 and discharged 08/09/2023 for dehydration, where she was found to have C diff colitis. Patient states that her back pain started while she was in the hospital and has progressed since. She has been taking Tylenol at home without relief. Patient states the pain has caused her to not be able to move and no one can help her at home and so she called 911. Of note, pain assessments recorded during patient's hospital stay, they are report that patient denied pain. Physical therapy was consulted 08/07/2023 to evaluate the patient, however per social work, NSG, and MD patient has been up and ambulating with NSG and does not need PT. Subsequently the physical therapy assessment was canceled. Patient denies bowel or bladder incontinence, denies saddle anesthesia. Related Data Home Medications Medication Instructions Recorded Confirmed multivitamin 1 tab PO QAM ##0 12/01/10 08/11/23 acetaminophen 500 mg tablet 500 mg PO Q6H PRN Pain (Scale 04/06/19 08/11/23 (Tylenol Extra Strength) Score 1-3) ezetimibe 10 mg tablet (Zetia) 10 mg PO QAM 08/07/23 08/11/23 metformin 1,000 mg tablet 1,000 mg PO QPM 08/07/23 08/11/23 amlodipine 5 mg tablet 5 mg PO QAM 08/11/23 08/11/23 docusate sodium 250 mg capsule 250 mg PO DAILY PRN Constipation 08/11/23 08/11/23 losartan 50 mg-hydrochlorothiazide 1 tab PO QAM 08/11/23 08/11/23 12.5 mg tablet Previous Rx's Medication Instructions Recorded blood-glucose meter #1 ea 10/06/21 lancets #200 ea 10/06/21 blood sugar diagnostic (Blood #50 ea 12/20/22 Glucose Test strips) Disabled Parking Permint #1 ea 02/21/23 oxycodone-acetaminophen 5 mg-325 1 tab PO Q6H PRN pain #10 tabs 06/14/23 mg tablet lidocaine 5 % topical patch 1 patch topical DAILY PRN pain #30 08/11/23 ea oxycodone 5 mg tablet 5 mg PO QID PRN pain #20 tabs 08/11/23 Allergies Allergy/AdvReac Type Severity Reaction Status Date / Time No Known Drug Allergies Allergy Verified 08/06/23 22:49 Review of Systems <China Dowell MD - Last Filed: 08/17/23 07:17> Review of Systems Narrative: Negative except as noted above Patient History <China Dowell MD - Last Filed: 08/17/23 07:17> Medical History Skin lesion Anemia Medicare annual wellness visit, subsequent Well adult exam Immunotherapy History of urinary tract infection Lesion of bladder Pulmonary nodule Gross hematuria Cirrhosis Splenomegaly 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Osteoarthritis of left shoulder Right hip pain Strain of tendon of left rotator cuff 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E[place] (nonalcoholic steatohepatitis) (10/2014) Hyperglycemia (Unknown) Diverticular disease (Unknown) Carpal tunnel syndrome (Unknown) Hyperlipemia (Unknown) Hypertension (Unknown) Surgical History History of partial mastectomy of left breast (07/29/21) Hx of eye surgery History of surgery H/O right wrist surgery Hx of cholecystectomy Hx of cataract surgery (Unknown) Hx of appendectomy (Unknown) History of carpal tunnel release (Unknown) Status post cholecystectomy Family History Father Cancer Mother Cancer Other Carcinoma of upper-outer quadrant of left female breast Social History marital status: number of children: 3 household members: none occupational status: previously employed Smoking Status: Never smoker alcohol intake: never substance use type: does not use Smoking Status: Never smoker alcohol intake frequency: 0-2 drinks per day Substance Use Type: does not use Exam <China Dowell MD - Last Filed: 08/17/23 07:17> Initial Vital Signs Initial Vital Signs: Vital Signs Pulse Rate 90 08/10/23 23:37 Pulse Oximetry 97 08/10/23 23:37 Oxygen Delivery Method Room Air 08/10/23 23:37 Const: Awake, alert, debilitated, frail Cardiac: regular rate, regular rhythm RESP: unlabored, clear bilaterally, no wheezing GI: Atraumatic, soft, distended, generalized tenderness to deep palpation, no rebound, no guarding MSK back: Upper lumbar tenderness to palpation, no step-offs Skin: Warm, Dry, intact, no rashes Neuro: AO x3, CN II-XII grossly intact, moves all extremities l <China Rodas DO - Last Filed: 08/11/23 18:02> Initial Vital Signs Initial Vital Signs: Vital Signs Pulse Rate 90 08/10/23 23:37 Pulse Oximetry 97 08/10/23 23:37 Oxygen Delivery Method Room Air 08/10/23 23:37 Course <China Dowell MD - Last Filed: 08/17/23 07:17> Course Course Narrative: Atraumatic lumbar back pain in patient with known metastatic breast cancer. No recent abdominal or lumbar imaging. Abdomen is soft but distended, given patient's history of C diff colitis and generalized tenderness will order CT abdomen/pelvis. Orders Ordered: Discontinued Medications Acetaminophen (Ofirmev) 1,000 mg in 100 mls @ 400 mls/hr IV NOW ONE Stop: 08/11/23 17:20 Lidocaine (Lidocaine 5% Patch) 1 each TOP NOW ONE Stop: 08/11/23 02:22 Last Admin: 08/11/23 03:28 Dose: 1 each Documented By: PASCUAL Methocarbamol (Methocarbamol 500 Mg Tablet) 500 mg PO NOW ONE Stop: 08/11/23 02:22 Last Admin: 08/11/23 03:28 Dose: 500 mg Documented By: PASCUAL Metoclopramide HCl (Metoclopramide 10 Mg/2 Ml Inj) 10 mg IV NOW ONE Stop: 08/11/23 11:25 Last Admin: 08/11/23 11:40 Dose: 10 mg Documented By: ROBERTA Morphine Sulfate (Morphine 4 Mg/Ml Inj) 4 mg IV NOW ONE Stop: 08/10/23 23:46 Last Admin: 08/11/23 00:07 Dose: 4 mg Documented By: SHARAD Morphine Sulfate (Morphine 4 Mg/Ml Inj) 4 mg IV NOW ONE Stop: 08/11/23 06:26 Last Admin: 08/11/23 06:28 Dose: 4 mg Documented By: SHARAD Ondansetron HCl (Ondansetron 4 Mg/2 Ml Inj) 4 mg IV NOW ONE Stop: 08/10/23 23:46 Last Admin: 08/11/23 00:06 Dose: 4 mg Documented By: SHARAD Ondansetron HCl (Ondansetron 4 Mg Odt) 4 mg SL NOW ONE Stop: 08/11/23 06:08 Last Admin: 08/11/23 06:11 Dose: 4 mg Documented By: SHARAD Ondansetron HCl (Ondansetron 4 Mg/2 Ml Inj) 4 mg IV NOW ONE Stop: 08/11/23 09:40 Last Admin: 08/11/23 09:40 Dose: 4 mg Documented By: ROBERTA Oxycodone HCl (Oxycodone Ir 5 Mg Tablet) 10 mg PO NOW ONE Stop: 08/11/23 08:21 Last Admin: 08/11/23 08:46 Dose: 10 mg Documented By: ROBERTA Vital Signs Vital signs: Vital Signs - 8 hr 08/11/23 10:18 08/11/23 10:20 08/11/23 10:20 Pulse Rate 103 H 99 H Respiratory Rate Blood Pressure 134/59 L Pulse Oximetry 92 92 08/11/23 10:30 08/11/23 10:46 08/11/23 10:46 Pulse Rate 96 H 93 H Respiratory Rate Blood Pressure 126/57 L Pulse Oximetry 91 92 08/11/23 11:00 08/11/23 11:30 08/11/23 11:31 Pulse Rate 89 95 H 95 H Respiratory Rate 24 26 H Blood Pressure Pulse Oximetry 91 91 92 08/11/23 11:31 08/11/23 12:00 08/11/23 12:00 Pulse Rate 91 H Respiratory Rate 16 Blood Pressure 108/54 L 127/57 L Pulse Oximetry 92 08/11/23 12:30 08/11/23 12:30 08/11/23 13:00 Pulse Rate 92 H Respiratory Rate 15 Blood Pressure 109/51 L 116/54 L Pulse Oximetry 91 08/11/23 13:00 08/11/23 13:29 08/11/23 13:30 Pulse Rate 93 H 94 H Respiratory Rate 23 16 Blood Pressure 122/56 L Pulse Oximetry 92 94 08/11/23 13:30 08/11/23 14:00 08/11/23 14:00 Pulse Rate 92 H 102 H Respiratory Rate 19 14 Blood Pressure 143/63 H Pulse Oximetry 93 97 08/11/23 14:30 08/11/23 14:30 08/11/23 15:00 Pulse Rate 97 H Respiratory Rate 13 Blood Pressure 114/56 L 144/61 H Pulse Oximetry 96 08/11/23 15:00 08/11/23 15:30 08/11/23 15:30 Pulse Rate 102 H 102 H Respiratory Rate 14 14 Blood Pressure 116/55 L Pulse Oximetry 95 96 08/11/23 16:00 08/11/23 16:00 Pulse Rate 102 H Respiratory Rate 14 Blood Pressure 137/59 L Pulse Oximetry 95 <China Rodas, - Last Filed: 08/11/23 18:02> Orders Ordered: Discontinued Medications Acetaminophen (Ofirmev) 1,000 mg in 100 mls @ 400 mls/hr IV NOW ONE Stop: 08/11/23 17:20 Lidocaine (Lidocaine 5% Patch) 1 each TOP NOW ONE Stop: 08/11/23 02:22 Last Admin: 08/11/23 03:28 Dose: 1 each Documented By: PASCUAL Methocarbamol (Methocarbamol 500 Mg Tablet) 500 mg PO NOW ONE Stop: 08/11/23 02:22 Last Admin: 08/11/23 03:28 Dose: 500 mg Documented By: PASCUAL Metoclopramide HCl (Metoclopramide 10 Mg/2 Ml Inj) 10 mg IV NOW ONE Stop: 08/11/23 11:25 Last Admin: 08/11/23 11:40 Dose: 10 mg Documented By: ROBERTA Morphine Sulfate (Morphine 4 Mg/Ml Inj) 4 mg IV NOW ONE Stop: 08/10/23 23:46 Last Admin: 08/11/23 00:07 Dose: 4 mg Documented By: SHARAD Morphine Sulfate (Morphine 4 Mg/Ml Inj) 4 mg IV NOW ONE Stop: 08/11/23 06:26 Last Admin: 08/11/23 06:28 Dose: 4 mg Documented By: SHARAD Ondansetron HCl (Ondansetron 4 Mg/2 Ml Inj) 4 mg IV NOW ONE Stop: 08/10/23 23:46 Last Admin: 08/11/23 00:06 Dose: 4 mg Documented By: SHARAD Ondansetron HCl (Ondansetron 4 Mg Odt) 4 mg SL NOW ONE Stop: 08/11/23 06:08 Last Admin: 08/11/23 06:11 Dose: 4 mg Documented By: SHARAD Ondansetron HCl (Ondansetron 4 Mg/2 Ml Inj) 4 mg IV NOW ONE Stop: 08/11/23 09:40 Last Admin: 08/11/23 09:40 Dose: 4 mg Documented By: ROBERTA Oxycodone HCl (Oxycodone Ir 5 Mg Tablet) 10 mg PO NOW ONE Stop: 08/11/23 08:21 Last Admin: 08/11/23 08:46 Dose: 10 mg Documented By: ROBERTA Vital Signs Vital signs: Vital Signs - 8 hr 08/11/23 10:18 08/11/23 10:20 08/11/23 10:20 Pulse Rate 103 H 99 H Respiratory Rate Blood Pressure 134/59 L Pulse Oximetry 92 92 08/11/23 10:30 08/11/23 10:46 08/11/23 10:46 Pulse Rate 96 H 93 H Respiratory Rate Blood Pressure 126/57 L Pulse Oximetry 91 92 08/11/23 11:00 08/11/23 11:30 08/11/23 11:31 Pulse Rate 89 95 H 95 H Respiratory Rate 24 26 H Blood Pressure Pulse Oximetry 91 91 92 08/11/23 11:31 08/11/23 12:00 08/11/23 12:00 Pulse Rate 91 H Respiratory Rate 16 Blood Pressure 108/54 L 127/57 L Pulse Oximetry 92 08/11/23 12:30 08/11/23 12:30 08/11/23 13:00 Pulse Rate 92 H Respiratory Rate 15 Blood Pressure 109/51 L 116/54 L Pulse Oximetry 91 08/11/23 13:00 08/11/23 13:29 08/11/23 13:30 Pulse Rate 93 H 94 H Respiratory Rate 23 16 Blood Pressure 122/56 L Pulse Oximetry 92 94 08/11/23 13:30 08/11/23 14:00 08/11/23 14:00 Pulse Rate 92 H 102 H Respiratory Rate 19 14 Blood Pressure 143/63 H Pulse Oximetry 93 97 08/11/23 14:30 08/11/23 14:30 08/11/23 15:00 Pulse Rate 97 H Respiratory Rate 13 Blood Pressure 114/56 L 144/61 H Pulse Oximetry 96 08/11/23 15:00 08/11/23 15:30 08/11/23 15:30 Pulse Rate 102 H 102 H Respiratory Rate 14 14 Blood Pressure 116/55 L Pulse Oximetry 95 96 08/11/23 16:00 08/11/23 16:00 Pulse Rate 102 H Respiratory Rate 14 Blood Pressure 137/59 L Pulse Oximetry 95 MDM - Back Pain/Injury <China Dowell MD - Last Filed: 08/17/23 07:17> Differential Diagnosis Differential diagnosis: Likely lumbar radiculopathy, sciatica and strain of lumbar region Lab Data 08/10/23 23:40 08/10/23 23:40 Labs: Lab Results 08/10/23 08/11/23 Range/Units 23:40 14:09 WBC 4.3 L D (4.5-11.0) X10^3/uL RBC 3.23 L (4.0-5.2) X10^6/uL Hgb 10.6 L (12.0-16.0) g/dL Hct 31.6 L (36-46) % MCV 97.9 (80-100) fL MCH 32.7 (26-34) PG MCHC 33.4 (30-36) % RDW 15.7 H (11.6-14.8) % Plt Count 118 L (150-400) X10^3/uL Neut % (Auto) Not Reportable Lymph % (Auto) Not Reportable Sampson % (Auto) Not Reportable Eos % (Auto) Not Reportable Baso % (Auto) Not Reportable Lymph # (Auto) Not Reportable Sampson # (Auto) Not Reportable Baso # (Auto) Not Reportable Total Counted 100 Seg Neutrophils % 63.0 (38-70) % Band Neutrophils % 10.0 H (3-7) % Lymphocytes % (Manual) 10.0 L (25-45) % Atypical Lymphs % 1.0 H ( - 0) % Monocytes % (Manual) 8.0 (2-11) % Eosinophils % (Manual) 4.0 (2-4) % Basophils % (Manual) 2.0 H (0-1) % Metamyelocytes % 2.0 H (-0) % Neutrophils # (Manual) 3139 (1278-6174) /uL Nucleated RBCs 2 H ( - 0) #/Diff RBC Morphology Normal morphology Sodium 133 L (137-145) mmol/L Potassium 3.6 (3.4-5.1) mmol/L Chloride 108 H (98-107) mmol/L Carbon Dioxide 17 L (22-32) mmol/L BUN 14 (7-17) mg/dL Creatinine 0.86 (0.52-1.04) mg/dL Estimated GFR > 60 (>60) mL/min BUN/Creatinine Ratio 16.3 (6-22) Glucose 127 H (80-110) mg/dL Calcium 8.7 (8.4-10.2) mg/dL Total Bilirubin 0.8 (0.2-1.3) mg/dL AST 47 H (14-36) IU/L ALT 37 H (<35) IU/L Alkaline Phosphatase 154 H (38-126) U/L Total Protein 6.7 (6.3-8.2) g/dL Albumin 2.8 L (3.5-5.0) g/dL Globulin 3.9 (1.7-4.1) g/dL Albumin/Globulin Ratio 0.7 L (1.0-2.8) Urine Color Yellow Urine Appearance Clear Urine pH 5.0 (4.5-8.0) Ur Specific [place] 1.015 (1.000-1.035) Urine Protein Trace H (Negative) Urine Glucose (UA) Negative (Negative) g/dL Urine Ketones Negative (NEGATIVE) Urine Occult Blood 1+ H (Negative) Urine Nitrate Negative (Negative) Urine Bilirubin Negative (NEGATIVE) Urine Urobilinogen 0.2 (0.2) E.U./dL Ur Leukocyte Esterase Negative (NEGATIVE) Urine RBC 0-1/hpf (0-5/HPF) Urine WBC 1-5/hpf (0-5/HPF) Ur Squamous Epith Cells 1-5 /hpf (0-5/HPF) Ur Transition Epith Cell 1-5/hpf (0-5/HPF) Urine Bacteria Few (2-10) H (None) Hyaline Casts 1-5/lpf (None) Ur Culture Indicated? Cult not indicated Urine Dip Bedside Urine Glucose Negative Bedside Urine Bilirubin - Negative Bedside Urine Ketone - Negative Urine Specific [place] 1.015 Bedside Urine Occult Blood + Bedside Urine pH 6.0 Bedside Urine Protein - Negative Bedside Urine Urobilinogen - Negative Bedside Urine Nitrite - Negative Bedside Urine Leukocytes - Negative Esterase MDM Narrative Medical decision making narrative: Laboratory work shows neutropenia and anemia, however this is improved from when patient was discharged yesterday.? Liver enzymes grossly unchanged from previous.? Sodium appears to be at baseline.? CT of the abdomen and pelvis shows mild worsening ascites, no bony abnormalities to explain why patient has such pain.? Patient reassessed, she states that when she is at rest she is comfortable but when she tries to move her pain is unbearable and she can not do it. No obvious explanation for patient's symptoms.? Explained all lab and imaging with patient and family at bedside. Will keep for SW, PT, OT evaluation in morning. Care of patient signed to Dr. Rodas at 0700 <China Rodas DO - Last Filed: 08/11/23 18:02> Lab Data Labs: Lab Results 08/10/23 08/11/23 Range/Units 23:40 14:09 WBC 4.3 L D (4.5-11.0) X10^3/uL RBC 3.23 L (4.0-5.2) X10^6/uL Hgb 10.6 L (12.0-16.0) g/dL Hct 31.6 L (36-46) % MCV 97.9 (80-100) fL MCH 32.7 (26-34) PG MCHC 33.4 (30-36) % RDW 15.7 H (11.6-14.8) % Plt Count 118 L (150-400) X10^3/uL Neut % (Auto) Not Reportable Lymph % (Auto) Not Reportable Sampson % (Auto) Not Reportable Eos % (Auto) Not Reportable Baso % (Auto) Not Reportable Lymph # (Auto) Not Reportable Sampson # (Auto) Not Reportable Baso # (Auto) Not Reportable Total Counted 100 Seg Neutrophils % 63.0 (38-70) % Band Neutrophils % 10.0 H (3-7) % Lymphocytes % (Manual) 10.0 L (25-45) % Atypical Lymphs % 1.0 H ( - 0) % Monocytes % (Manual) 8.0 (2-11) % Eosinophils % (Manual) 4.0 (2-4) % Basophils % (Manual) 2.0 H (0-1) % Metamyelocytes % 2.0 H (-0) % Neutrophils # (Manual) 3139 (4995-8167) /uL Nucleated RBCs 2 H ( - 0) #/Diff RBC Morphology Normal morphology Sodium 133 L (137-145) mmol/L Potassium 3.6 (3.4-5.1) mmol/L Chloride 108 H (98-107) mmol/L Carbon Dioxide 17 L (22-32) mmol/L BUN 14 (7-17) mg/dL Creatinine 0.86 (0.52-1.04) mg/dL Estimated GFR > 60 (>60) mL/min BUN/Creatinine Ratio 16.3 (6-22) Glucose 127 H (80-110) mg/dL Calcium 8.7 (8.4-10.2) mg/dL Total Bilirubin 0.8 (0.2-1.3) mg/dL AST 47 H (14-36) IU/L ALT 37 H (<35) IU/L Alkaline Phosphatase 154 H (38-126) U/L Total Protein 6.7 (6.3-8.2) g/dL Albumin 2.8 L (3.5-5.0) g/dL Globulin 3.9 (1.7-4.1) g/dL Albumin/Globulin Ratio 0.7 L (1.0-2.8) Urine Color Yellow Urine Appearance Clear Urine pH 5.0 (4.5-8.0) Ur Specific [place] 1.015 (1.000-1.035) Urine Protein Trace H (Negative) Urine Glucose (UA) Negative (Negative) g/dL Urine Ketones Negative (NEGATIVE) Urine Occult Blood 1+ H (Negative) Urine Nitrate Negative (Negative) Urine Bilirubin Negative (NEGATIVE) Urine Urobilinogen 0.2 (0.2) E.U./dL Ur Leukocyte Esterase Negative (NEGATIVE) Urine RBC 0-1/hpf (0-5/HPF) Urine WBC 1-5/hpf (0-5/HPF) Ur Squamous Epith Cells 1-5 /hpf (0-5/HPF) Ur Transition Epith Cell 1-5/hpf (0-5/HPF) Urine Bacteria Few (2-10) H (None) Hyaline Casts 1-5/lpf (None) Ur Culture Indicated? Cult not indicated Urine Dip Bedside Urine Glucose Negative Bedside Urine Bilirubin - Negative Bedside Urine Ketone - Negative Urine Specific [place] 1.015 Bedside Urine Occult Blood + Bedside Urine pH 6.0 Bedside Urine Protein - Negative Bedside Urine Urobilinogen - Negative Bedside Urine Nitrite - Negative Bedside Urine Leukocytes - Negative Esterase Imaging Data PROCEDURE: CT ABDOMEN PELVIS W CON INDICATIONS: ATRAUMATIC LUMBAR BACK PAIN/ABDOMINAL DISTENSION TECHNIQUE: After the administration of intrav: Radiologist's Impression: Patricia Giordano??82??F??1940 ? Allergy/Adv: No Known Drug Allergies Close Lumbar Spine CT 08/11/23 Abdomen/Pelvis CT (Signed) Pedro Early - 08/10/23 Abdomen/Pelvis CT (Signed) Saeid Govea - 08/06/23 Abdomen Ultrasound (Signed) Aleksey Harrison - 07/10/23 Chest X-Ray (Signed) Aleksey Harrison - 07/10/23 Chest X-Ray (Signed) Alexander Pop - 06/14/23 Chest X-Ray (Signed) Brandon Mai - 06/13/23 Lymph Node Biopsy Ultrasound (Signed) Brandon Mai - 03/15/23 Head/Neck Ultrasound (Signed) Stephan Chambers - 02/16/23 Mammogram Diagnostic (Signed) Pedro Early - 01/31/23 Abdomen Ultrasound (Signed) Remington Ag - 01/10/23 Peripheral Vascular Ultrasound (Signed) Radha Arguello - 12/07/22 Mammogram Diagnostic (Addendum) Jeremi Harrison - 09/10/22 Chest/Abdomen/Pelvis CT (Signed) Swapnil Sheriff - 08/18/[address] (Signed) Remington Ag - 12/31/[address] (Signed) Myra Calvert - 12/31/21 Abdomen/Pelvis CT (Signed) Cayden Potts - 11/22/21 Echocardiogram Ultrasound (Signed) Vero Link - 11/19/21 Telemetry Strips 11/18/21 Chest X-Ray (Signed) Call,Isaiah - 11/18/21 Abdomen/Pelvis CT (Signed) Oswaldo Carter - 11/18/21 Chest X-Ray (Signed) Oswaldo Carter - 11/18/[address] (Signed) Gina Dias - 10/05/[address] (Signed) Sue Age - 09/08/21 Outside DI 08/28/21 Axilla US (Signed) Oswaldo Carter - 08/27/21 Telemetry Strips 08/26/21 Chest X-Ray (Signed) Call,Isaiah - 08/26/21 [place] Node Imaging Nuclear Med (Signed) Soy Okeefe - 07/29/21 [place] Node (Cancelled) 07/29/21 Surgical Specimen Imaging (Signed) Alexander Pop - 07/29/21 Telemetry Strips 07/28/21 Abdomen/Pelvis CT (Signed) Alexander Pop - 07/11/21 Breast Biopsy Ultrasound (Signed) Gina Dias - 06/29/21 Mammogram Diagnostic (Signed) Radha Arguello - 06/29/21 Breast Ultrasound (Signed) Oswaldo Carter - 06/02/21 Mammogram, Additional Views (Signed) Oswaldo Carter - 06/02/21 Mammogram Screening (Signed) Swapnil Sheriff - 04/30/21 Bone Densitometry 12/11/20 DEXA Result 12/11/20 Mammogram Diagnostic (Signed) Swapnil Sheriff - 11/25/20 Breast Ultrasound (Signed) Swapnil Sheriff - 11/25/20 Breast Ultrasound (Signed) Alexander Pop - 05/27/20 Mammogram, Additional Views (Signed) Gina Dias - 05/26/20 Shoulder MRI (Signed) Soy Okeefe - 05/22/20 Shoulder X-Ray (Signed) German Martino - 05/08/20 Mammogram Screening (Signed) Sagar Dickey - 04/28/20 Hip X-Ray (Signed) Oswaldo Carter - 03/11/20 Mammogram Screening (Signed) Priya Hopper - 04/24/19 DEXA Result 04/13/19 Bone Densitometry 04/13/19 Thoracic Spine X-Ray (Signed) Fidel Almazan - 01/29/19 Ankle MRI (Signed) Fidel Almazan - 12/09/18 Lumbar Spine MRI (Signed) Remington Ag - 11/08/18 Shoulder X-Ray (Signed) Lawrence Gilmore - 11/03/18 Hip X-Ray (Signed) Priya Hopper - 04/16/18 Mammogram Screening (Signed) Lawrence Gilmore - 04/12/18 Launch?Image [address] [address] [address] Scan Report Signed Patient: Patricia Giordano MR#: [id number] : 1940 Acct:[id number] Age/Sex: 82 / F Date of Service: 08/10/23 Loc: Accession Number: [id number] Procedure: CT abdomen pelvis w con Ordering Provider: China Dowell MD PROCEDURE: CT ABDOMEN PELVIS W CON INDICATIONS: ATRAUMATIC LUMBAR BACK PAIN/ABDOMINAL DISTENSION TECHNIQUE: After the administration of intravenous contrast, axial sections acquired from the lung bases to the pubic symphysis. Coronal and sagittal reformats were performed. For radiation dose reduction, the following was used: automated exposure control, adjustment of mA and/or kV according to patient size. COMPARISON: [facility], CT, CT ABDOMEN PELVIS W CON, 08/06/2023, 23:59. FINDINGS: Image quality: Diagnostic Lower chest: Bibasilar suspected atelectasis. [id number] distal esophageal wall thickening is nonspecific. There also esophageal varices. Mild cardiomegaly partially seen. Liver: Cirrhosis. Gallbladder and biliary system: Gallbladder is absent. Mildly dilated biliary system post cholecystectomy again seen. Pancreas: Moderate atrophy, without pathologic ductal dilation Spleen: Splenomegaly Adrenals: Thickening again seen Kidneys: Bilateral cortical thinning. Subcentimeter lesions are too small to characterize, Bosniak 2. No hydronephrosis or solid mass. Vessels and lymph nodes: The main portal vein is patent. Flow direction cannot be determined on CT. There are left upper quadrant varices. No abdominal aortic aneurysm. No pathologic lymph nodes by size criteria. Bowel and peritoneum: Mild small and large bowel wall thickening. Moderate ascites, increased. Colonic diverticulosis. Moderate fecal loading. Body wall: Diffuse mild to moderate anasarca Pelvis: Bladder is under distended. Reproductive organs appear unremarkable on limited CT evaluation. Bones: Degenerative changes, no acute or suspicious findings. overall mild lumbar degenerative changes. IMPRESSION: Cirrhosis and sequela of portal hypertension. Moderate ascites, increased from prior. Consider future HCC surveillance imaging. Bowel wall thickening, particularly parts of the colon and distal small bowel, likely portable congestive enteropathy versus infectious/inflammation. Overall mild lumbar degenerative changes. If there is high concern for further derangement, consider MRI evaluation. Other findings as above. Dictated by: Pedro Early M.D. on 08/11/2023 at 1:27 Approved by: Pedro Early M.D. on 08/11/2023 at 1:35 Lslaporte MRI: Radiologist's Impression: [address] [address] Magnetic Resonance Report Signed Patient: Patricia Giordano MR#: [id number] : 1940 Acct:[id number] Age/Sex: 82 / F Date of Service: 08/11/23 Loc: ED Accession Number: [id number] Procedure: MR lumbar spine wo con Ordering Provider: China Rodas D.O. PROCEDURE: MR LUMBAR SPINE WO CON INDICATIONS: low back pain, known metastatic cancer TECHNIQUE: Noncontrast sagittal T1 spin echo and T2 fast echo, coronal T2, sagittal STIR, and T2 fast spin echo through the lumbar spine. COMPARISON: [facility], CT, CT LUMBAR SPINE WO CON, 08/11/2023, 4:35. [facility], MR, MR LUMBAR SPINE WO CON, 11/08/2018, 16:35. FINDINGS: Image quality: Excellent. Alignment and Curvature: 5 lumbar type vertebral bodies are present by CT. Loss of normal lumbar lordosis. Mild diffuse leftward curvature of the lumbar spine. Bone Marrow: Marrow is of normal overall signal. No acute vertebral body compression fractures. Minimal reactive signal within the endplates of the lumbar and lower thoracic spine. Spinal Cord: Conus medullaris terminates at the upper L1 level. Visualized cord demonstrates normal signal and size. Paraspinous Soft Tissues: No paravertebral masses. Moderate dependent subcutaneous edema within the subcutaneous fat posteriorly. T12-L1: Normal appearance. L1-L2: Normal appearance. L2-L3: Mild disc desiccation and diffuse disc bulge. Mild canal stenosis. Mild bilateral foraminal stenosis. L3-L4: Mild disc desiccation. Mild facet and ligamentum flavum hypertrophy. Mild canal stenosis. Mild bilateral foraminal stenosis. No significant change. L4-L5: Mild disc height loss and desiccation. Mild facet and ligamentum flavum hypertrophy. Mild canal stenosis. Mild bilateral foraminal stenosis. No significant change. L5-S1: Mild disc desiccation and diffuse disc bulge. Mild bilateral facet hypertrophy. Mild canal stenosis. Mild bilateral foraminal stenosis. No significant change. IMPRESSION: 1. As seen by same-day CT examination, there is no acute process. No fracture. 2. No evidence of metastatic disease on noncontrast imaging. For increased sensitivity, nonemergent outpatient follow-up contrast enhanced MRI, or bone scan could be performed for further assessment. No further emergent imaging is warranted for this diagnosis. 3. Multilevel degenerative disc and facet disease, as well as ligamentum flavum hypertrophy and epidural lipomatosis. 4. Mild multilevel canal and foraminal stenoses. No neural impingement. Dictated by: Taina Lilly M.D. on 08/11/2023 at 10:39 Approved by: Taina Lilly M.D. on 08/11/2023 at 10:44 [facility] Narrative Medical decision making narrative: Laboratory work shows neutropenia and anemia, however this is improved from when patient was discharged yesterday.? Liver enzymes grossly unchanged from previous.? Sodium appears to be at baseline.? CT of the abdomen and pelvis shows mild worsening ascites, no bony abnormalities to explain why patient has such pain.? Patient reassessed, she states that when she is at rest she is comfortable but when she tries to move her pain is unbearable and she can not do it. No obvious explanation for patient's symptoms.? Explained all lab and imaging with patient and family at bedside. Will keep for SW, PT, OT evaluation in morning. Care of patient signed to Dr. Rodas at 0700 08/11/22 Adrianna: Patient's labs and imaging reviewed. Patient does not have any obvious acute neurologic changes. Did have about 300 mL bladder scan but was able to urinate. Patient's L-spine showed some mild narrowing and spondylitic changes had MRI L-spine to rule out any obvious spinal cord impingement it does not show any or any acute neurosurgical. Patient does not have any other acute admittable diagnosis at this time. On examination patient does not have any obvious neurologic changes. PT OT saw patient thought she has a little bit of weakness on the left side. CT L-spine did show central canal narrowing and spondylitic changes L-spine MR showed mild change but no obvious impingement nerves. Patient did have several dose of pain medications and have some nausea and vomiting them at times. Patient potentially had some aspiration had a chest x-ray has potential pneumonia but is currently on oral vancomycin for C diff did not have any hypoxia and additional antibiotics were held. SOCIAL WELFARE ADMINISTRATOR met with patient she does not wish to go to rehab facility or stiff. Do not have an admittable diagnosis at this time. Patient returns to return home, home health care resources were given to patient and family. I did discuss if there has been discussion about palliative care consult with family family at bedside states there has been some discussion but that patient has not been very receptive. Patient does not participate this portion of the discussion much at all. Discharge Plan Departure Patient Disposition: Home Clinical Impression: Lumbar back pain, Breast cancer Ascites Qualifiers: Ascites type: other type Qualified Code(s): R18.8 - Other ascites Activity Restrictions/Additional Instructions: Follow-up with your physician. Our social media editor met with you please follow up the resources for home health care you have elected not to pursue placement in a facility. Your images show changes to the bone but no metastatic changes, no spinal cord impingement on imaging today. You may take Tylenol up to a 1000 mg every 6 hours and/or ibuprofen up to 600 mg every 6 hours for pain. You may use lidocaine patch to the affected area. If in adequate you can take oxycodone 1-2 tablets every 6 hours as needed. This medication can make you sleepy do not drive, perform hazardous activities or make any major decisions while taking it. This medication will make you constipated please take a stool softener once to twice daily until stools are soft and regular. Prescription sent to [email or web address] in [place]. Please return for new or worsening symptoms, new weakness numbness or loss of sensation, loss of bowel or bladder control chest pain or shortness of breath or other new or concerning changes. Prescriptions: New oxycodone 5 mg tablet 5 mg PO QID PRN (Reason: pain) Qty: 20 0RF lidocaine 5 % adhesive patch,medicated 1 patch topical DAILY PRN (Reason: pain) Qty: 30 0RF Rx Instructions: leave on most painful area for up to 12 hrs No Action multivitamin Tablet 1 tab PO QAM Qty: 0 (DME) Disabled Parking Permint See Rx Instructions .ROUTE .MEDSUPPLY Qty: 1 0RF Rx Instructions: I find this patient to be medically disabled and qualified for Disabled Parking as indicated and signed on the Accompanying Disabled Parking Application for individuals. (DME) blood-glucose meter Misc See Rx Instructions .Route Qty: 1 0RF Rx Instructions: Check blood glucose BID (DME) lancets Misc See Rx Instructions .Route Qty: 200 0RF Rx Instructions: As directed (DME) Blood Glucose Test Strip See Rx Instructions .Route Qty: 50 6RF Rx Instructions: As directed acetaminophen [Tylenol Extra Strength] 500 mg tablet 500 mg PO Q6H PRN (Reason: Pain (Scale Score 1-3)) oxycodone-acetaminophen 5-325 mg tablet 1 tab PO Q6H PRN (Reason: pain) Qty: 10 0RF ezetimibe [Zetia] 10 mg tablet 10 mg PO QAM Rx Instructions: TAKE ONE TABLET BY MOUTH ONE TIME DAILY metformin 1,000 mg Tablet 1,000 mg PO QPM Rx Instructions: at night amlodipine 5 mg tablet 5 mg PO QAM losartan-hydrochlorothiazide 50-12.5 mg tablet 1 tab PO QAM Rx Instructions: TAKE ONE TABLET BY MOUTH ONE TIME DAILY docusate sodium 250 mg capsule 250 mg PO DAILY PRN (Reason: Constipation) Rx Instructions: use any day that you also take a narcotic pain pill to prevent constipation Referrals: Darion Clifford, [Primary Care Provider] - Stand Alone Forms: Patient Portal/API
[2023-08-10 23:57] LABS: Hematocrit 31.6 % (36-46); Hemoglobin 10.6 g/dL (12.0-16.0); Mean Corpuscular HGB Conc 33.4 % (30-36); Mean Corpuscular Hemoglobin 32.7 PG (26-34); Mean Corpuscular Volume 97.9 fL (80-100); Platelet Count 118 X10^3/uL (150-400); Red Blood Cell Count 3.23 X10^6/uL (4.0-5.2); Red Cell Distribution Width 15.7 % (11.6-14.8); White Blood Cell Count 4.3 X10^3/uL (4.5-11.0)
[2023-08-11] VITALS (42 sets, daily range): BP systolic 103–144; BP diastolic 50–72; PULSE 79–103; RESP 13–26; O2SAT 91–99
[2023-08-11 00:01] LABS: Add Manual Diff / Slide Review YES; Alanine Aminotransferase 37 IU/L (<35); Albumin 2.8 g/dL (3.5-5.0); Albumin Globulin Ratio 0.7 (1.0-2.8); Alkaline Phosphatase 154 U/L (38-126); Aspartate Aminotransferase 47 IU/L (14-36); BUN Creatinine Ratio 16.3 (6-22); Bilirubin Total 0.8 mg/dL (0.2-1.3); Blood Urea Nitrogen 14 mg/dL (7-17); Calcium 8.7 mg/dL (8.4-10.2); Carbon Dioxide 17 mmol/L (22-32); Chloride 108 mmol/L (98-107); Estimated Glomerular Filt Rate > 60 mL/min (>60); Globulin 3.9 g/dL (1.7-4.1); Glucose 127 mg/dL (80-110); HEMOLYSIS < 15 (0-50); Potassium 3.6 mmol/L (3.4-5.1); Sodium 133 mmol/L (137-145); Total Protein 6.7 g/dL (6.3-8.2)
[2023-08-11] MEDS: ONDANSETRON 4 MG/2 ML INJ IV ×2 (00:06→09:40)
[2023-08-11] MEDS: MORPHINE 4 MG/ML INJ IV ×2 (00:07→06:28)
--- NOTE | 2023-08-11 00:10 | PC.NURSE ---
Vancomycin 125 mg. taken from own prescription.
[2023-08-11 00:18] LABS: Neutrophils Absolute Manual 3139 /uL (3000-5900); Nucleated Red Blood Cells 2 #/Diff; RBC Morphology Normal Morphology; Total Cells Counted 100
[2023-08-11] MEDS: methocarbamoL 500 MG TABLET PO (03:28)
[2023-08-11] MEDS: LIDOCAINE 5% PATCH 1 EACH TOP (03:28)
--- NOTE | 2023-08-11 04:21 | DI.CT.S_ITS ---
PROCEDURE: CT LUMBAR SPINE WO CON INDICATIONS: intractable lumbar pain, hx metastatic breast CA TECHNIQUE: Noncontrast 3 mm thick sections acquired from the T12 level to the sacrum. Sagittal and coronal reformats were constructed. For radiation dose reduction, the following was used: automated exposure control. COMPARISON: [facility], CT, CT ABDOMEN PELVIS W CON, 08/11/2023, 1:05. FINDINGS: Image quality: Excellent. Bones: There is normal bony alignment. No acute vertebral body compression fractures. No suspicious lytic or blastic bony lesions. No pars defects. Disc bulges are present at all levels of the lumbar spine. There is mild leftward scoliotic curvature. Moderate to severe spinal stenosis L2-3, severe L3-4, moderate L4-5. Moderate to severe bilateral foraminal narrowing L2-3, L3-4, severe left, moderate to severe right L4-5 and moderate bilateral L5-S1. Multilevel facet and ligamentum flavum hypertrophy are present. Soft tissues: No retroperitoneal masses or hematomas. Visualized aorta is normal in caliber. Partially visualized abdominal and pelvic ascites is present. IMPRESSION: Multilevel degenerative changes. Partially visualized abdomen pelvis demonstrate prominent ascites. The above findings are concordant with preliminary report. Dictated by: Myra Calvert M.D. on 08/11/2023 at 10:00 Approved by: Myra Calvert M.D. on 08/11/2023 at 10:14
[2023-08-11] MEDS: ONDANSETRON 4 MG ODT SL (06:11)
--- NOTE | 2023-08-11 06:20 | PC.NURSE ---
Pt. took Vancomycin 125 mg. po from own prescription
--- NOTE | 2023-08-11 08:18 | DI.MRI.S_ITS ---
PROCEDURE: MR LUMBAR SPINE WO CON INDICATIONS: low back pain, known metastatic cancer TECHNIQUE: Noncontrast sagittal T1 spin echo and T2 fast echo, coronal T2, sagittal STIR, and T2 fast spin echo through the lumbar spine. COMPARISON: [facility], CT, CT LUMBAR SPINE WO CON, 08/11/2023, 4:35. [facility], MR, MR LUMBAR SPINE WO CON, 11/08/2018, 16:35. FINDINGS: Image quality: Excellent. Alignment and Curvature: 5 lumbar type vertebral bodies are present by CT. Loss of normal lumbar lordosis. Mild diffuse leftward curvature of the lumbar spine. Bone Marrow: Marrow is of normal overall signal. No acute vertebral body compression fractures. Minimal reactive signal within the endplates of the lumbar and lower thoracic spine. Spinal Cord: Conus medullaris terminates at the upper L1 level. Visualized cord demonstrates normal signal and size. Paraspinous Soft Tissues: No paravertebral masses. Moderate dependent subcutaneous edema within the subcutaneous fat posteriorly. T12-L1: Normal appearance. L1-L2: Normal appearance. L2-L3: Mild disc desiccation and diffuse disc bulge. Mild canal stenosis. Mild bilateral foraminal stenosis. L3-L4: Mild disc desiccation. Mild facet and ligamentum flavum hypertrophy. Mild canal stenosis. Mild bilateral foraminal stenosis. No significant change. L4-L5: Mild disc height loss and desiccation. Mild facet and ligamentum flavum hypertrophy. Mild canal stenosis. Mild bilateral foraminal stenosis. No significant change. L5-S1: Mild disc desiccation and diffuse disc bulge. Mild bilateral facet hypertrophy. Mild canal stenosis. Mild bilateral foraminal stenosis. No significant change. IMPRESSION: 1. As seen by same-day CT examination, there is no acute process. No fracture. 2. No evidence of metastatic disease on noncontrast imaging. For increased sensitivity, nonemergent outpatient follow-up contrast enhanced MRI, or bone scan could be performed for further assessment. No further emergent imaging is warranted for this diagnosis. 3. Multilevel degenerative disc and facet disease, as well as ligamentum flavum hypertrophy and epidural lipomatosis. 4. Mild multilevel canal and foraminal stenoses. No neural impingement. Dictated by: Taina Lilly M.D. on 08/11/2023 at 10:39 Approved by: Taina Lilly M.D. on 08/11/2023 at 10:44
[2023-08-11] MEDS: OXYCODONE IR 5 MG TABLET 10 MG PO (08:46)
--- NOTE | 2023-08-11 08:57 | PC.NURSE ---
Daughter at the bedside, breakfast ordered for both. Daughter is assisting her mother in eating breakfast. Pt has loss of appetite due to recent cancer treatments. Physician at bedside this am for consultation. MRI ordered, will be here to p/u pt at 0940.
--- NOTE | 2023-08-11 09:34 | PC.NURSE ---
PT/OT in room for consultation and evaluation. Verbal report of evaluation given to physician
--- NOTE | 2023-08-11 10:09 | PC.NURSE ---
Pt left for MRI @ 3015.
--- NOTE | 2023-08-11 10:34 | PT.IIE ---
Surgical History (Last Reviewed 08/07/23 @ 06:43 by Jason Dee MD) H/O right wrist surgery History of carpal tunnel release (Unknown) History of partial mastectomy of left breast (07/29/21) History of surgery Hx of appendectomy (Unknown) Hx of cataract surgery (Unknown) Hx of cholecystectomy Hx of eye surgery Status post cholecystectomy Medical History (Last Reviewed 08/11/23 @ 00:02 by China Dowell MD) Anemia Carpal tunnel syndrome (Unknown) Cirrhosis Diverticular disease (Unknown) Gross hematuria History of urinary tract infection Hyperglycemia (Unknown) Hyperlipemia (Unknown) Hypertension (Unknown) Immunotherapy 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Lesion of bladder Medicare annual wellness visit, subsequent [place] (nonalcoholic steatohepatitis) (10/2014) 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 Pulmonary nodule Right hip pain Skin lesion Splenomegaly Strain of tendon of left rotator cuff Well adult exam Physical Therapy Inpatient Evaluation/Re-Eval M1 PT/OT-IP Prior Functional Status Start: 08/11/23 07:45 Freq: Status: Active Protocol: Document 08/11/23 09:09 MB (Rec: 08/11/23 10:34 MB [id number]) Medical Review Prior Functional Status Medical History Reviewed Yes Communication PT does not know baseline diet Mobility and Gait Pt required increasing assistance from her kids for short ambulation with her rollator at home Activities of Daily Living and IADL's As above, pt reports assistance for all ADLs since recent d/c home from hospital this week Social History Household Members none Living Arrangements House Number of Floors (Floors) One Floor Number of Stairs To Enter/Railing? 1 platform step up into the house Home Environment Standard Height Toilet,Walk in Shower Home Equipment Four Wheel Walker Employment Status Retired M2 PT-IP Current Condition Start: 08/11/23 07:45 Freq: Status: Active Protocol: Document 08/11/23 09:09 MB (Rec: 08/11/23 10:34 MB [id number]) Physical Therapy Current Condition Current Condition Evaluation Date 08/11/23 Treatment Diagnosis Back pain in setting of metastatic breast CA, cirrhosis, ascites M3 PT-IP Subjective Start: 08/11/23 07:45 Freq: Status: Active Protocol: Document 08/11/23 09:09 MB (Rec: 08/11/23 10:34 MB [id number]) Subjective Physical Therapy Visit Type Type Initial Evaluation Visit Start Time 09:09 Visit Stop Time 09:35 Total Visit Minutes 26 Number of PRINTER'S ASSISTANT Visits 0 Physical Therapy Visit Comments Patient Comments Pt is hypoverbal and only speaks to answer therapist questions. Therapy Pain Assessment Pain When Pain Assessed During Mobility Pain Present Pain Present Pain Reported Location Back Intensity 5 Scale Used Numeric (0 - 10) Description Acute Pain Behaviors Facial Grimacing,Guarding Pain Management Techniques Distraction,Re-positioning, Timing of Activity with Medications M4 PT-IP Mobility and Gait Start: 08/11/23 07:45 Freq: Status: Active Protocol: Document 08/11/23 09:09 MB (Rec: 08/11/23 10:34 MB [id number]) PT-Bed Mobility Assessment Supine to Sit Supine to Sit Maximum Assistance,1 Person Assistance Sit to Supine Sit to Supine Moderate Assistance,2 Person Assistance Scooting Scooting to Edge of Bed Minimal Assistance Scooting Up and Down in Bed Minimal Assistance PT-Transfer Assessment Sit to and From Stand Sit to and from Stand Moderate Assistance,1 Person Assistance,Use of Upper Extremities Equipment Transfer Assistive Device Gait Belt,Front Wheeled Walker Orthotic/Prosthetic Devices or Brace: No Transfers Transfer Destination Bedside Commode Transfer Technique Stepping Transfer Ability Level of Assist Moderate Assistance,1 Person Assistance,Use of Upper Extremities Comments Mobility Comments Pt with functional leg weakness more noticeable in the left ankle. She requires cues and assistance to move the walker, for balance and for stepping from [facility] bed to [facility] to the right and then back. OT assisted with hygiene after toileting. Gait Assessment Gait Gait Assistance Required: Moderate Assistance,1 Person Assist Distance (Feet) 2 Able to Maintain Weight Bearing Status Yes During Gait Assistive Devices Assistive Device Gait Belt,Front Wheeled Walker Orthotic/Prosthetic Devices or Brace: No Gait Deviations General Gait Pattern Antalgic,Decreased Stride Length,Decreased Feet Clearance,Flexed Trunk Factors Limiting Gait Function Factors Limiting Gait Function Decreased Activity Tolerance, Decreased Strength,Difficulty Following Directions, Incoordination,Limited Range of Motion,Pain,Poor Balance, Poor Safety Awareness Comments Gait Comments Pt moves slowly and requires cues for all mobility, see assistance needed comments above PT-Balance Assessment Sitting Balance and Reactions Static Sitting Balance Ability Fair Dynamic Sitting Balance Ability Fair Standing Balance and Reactions Static Standing Balance Ability Fair Dynamic Standing Balance Ability Fair Device Used RW M5 PT-IP Objective Assessments Start: 08/11/23 07:45 Freq: Status: Active Protocol: Document 08/11/23 09:09 MB (Rec: 08/11/23 10:34 MB [id number]) Orientation Orientation/Cognition Level of Alertness Alert Orientation Name,Age,Birthday,Month,Date, Year,Day of Week,Place, Situation Language Function Ability No Deficits Noted Safety Awareness Decreased Safety Awareness Memory Description No Deficits Noted Gross Range of Motion Upper Extremity ROM Assessment Left Impaired Impairments LUE edema d/t lymphedema Lower Extremity ROM Assessment Left Impaired Impairments Decreased left ankle DF, right ankle grossly 75% normal ROM Strength Lower Extremity Strength Assessment Left Impaired Comments Strength Comments Pt does not follow MMT commands and she presents with more functional weakness in her left ankle Sensation Assessment Sensation Gross Sensation WNL M7 PT-IP Assessment and Plan Start: 08/11/23 07:45 Freq: Status: Active Protocol: Document 08/11/23 09:09 MB (Rec: 08/11/23 10:34 [id number]) PT Summary Assessment and Plan Potential Rehabilitation Potential Fair Status of Condition at Evaluation Evolving Summary Impairments Pain,ROM,Strength,Balance,Bed Mobility,Transfers,Gait, Activity Tolerance Progress Towards Goals Slow Progress due to Pain,Slow Progress due to Medical Issues Assessment Summary Pt is am 82 y/o female with recent hospital admissions who returns wtih increasing back pain and decreased mobility in setting of metastatic breast CA, cirrhosis, portal HTN and moderate ascites. Her abdomen is very distended. She is undergoing MRI of her spine. She has had assistance from her children who have not been providing 24/7 care/do not live with her. It is unclear if pt and family have had discussion about pt's medical prognosis and this directly affects functional prognosis and so PT communicates with MD about this. Pt will require increasing 24/7 assistance at d/c. PT at d/c may also be helpful for patient and family training. SNF vs home 24/7 assistance, deferring to MD about pt's trajectory. Pt currently requires mod A for mobility. Goals Bed Mobility Goal Independent Transfer Goal Standby Assistance,Front Wheeled Walker Gait Goal Standby Assistance,Front Wheel Walker Gait Distance 75 Other Goals Pt will ascend and descend platform step with RW and no more than CGA to allow safe home entrance. Days to Meet Goals 5 Frequency of Treatment Frequency Of Treatment Once a Day Treatment Plan Physical Therapy Treatment Plan Bed Mobility Training,Transfer Training,Gait Training, Therapeutic Exercise,Balance Retraining,Discharge Planning Precautions Other Precautions Be mindful of pt's spine and try efforts of log roll if pt can tolerate. It was not possible on avivaramiro during assessment. Weight Bearing Status Weight Bearing Status Weight Bear as Tolerated Recommendations To Nursing Amount of Assist Needed 1 Person Assist Discharge Recommendations PT Discharge Recommendations Home with 24/7 Assist Available,SNF Rehab,Home vs SNF Other Discharge Recommendations SNF vs home with 24/7 assistance, possible hospice Transportation Needs at Discharge Wheelchair/Cabulance
--- NOTE | 2023-08-11 11:38 | DI.RAD.S_ITS ---
PROCEDURE: XR CHEST 1V INDICATIONS: ? aspiration, vomited, coughing TECHNIQUE: One view of the chest was acquired. COMPARISON: [facility], CR, XR CHEST 1V, 07/10/2023, 10:44. FINDINGS: Surgical changes and devices: Right chest wall port catheter, tip of which is in the right atrium. Lungs and pleura: Mild patchy left perihilar and basilar opacity. No pleural effusions or pneumothorax. Mediastinum: Mediastinal contours appear normal. Heart size is normal. Bones and chest wall: No suspicious bony lesions. Overlying soft tissues appear unremarkable. IMPRESSION: Left perihilar and basilar opacity, which could indicate aspiration or pneumonia. Dictated by: Taina Lilly M.D. on 08/11/2023 at 11:54 Approved by: Taina Lilly M.D. on 08/11/2023 at 11:55
[2023-08-11] MEDS: METOCLOPRAMIDE 10 MG/2 ML INJ IV (11:40)
--- NOTE | 2023-08-11 12:42 | OT.IP.EVAL ---
Past Medical History (Last Reviewed 08/11/23 @ 00:02 by China Dowell MD) Anemia Carpal tunnel syndrome (Unknown) Cirrhosis Diverticular disease (Unknown) Gross hematuria History of urinary tract infection Hyperglycemia (Unknown) Hyperlipemia (Unknown) Hypertension (Unknown) Immunotherapy 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Lesion of bladder Medicare annual wellness visit, subsequent EASTON (nonalcoholic steatohepatitis) (10/2014) 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 Pulmonary nodule Right hip pain Skin lesion Splenomegaly Strain of tendon of left rotator cuff Well adult exam Surgical History (Last Reviewed 08/07/23 @ 06:43 by Jason Dee MD) H/O right wrist surgery History of carpal tunnel release (Unknown) History of partial mastectomy of left breast (07/29/21) History of surgery Hx of appendectomy (Unknown) Hx of cataract surgery (Unknown) Hx of cholecystectomy Hx of eye surgery Status post cholecystectomy Occupational Therapy Inpatient Evaluation/Re-Eval M1 PT/OT-IP Prior Functional Status Start: 08/11/23 07:45 Freq: Status: Active Protocol: Document 08/11/23 09:09 [facility] (Rec: 08/11/23 12:38 [facility] [id number]) Medical Review Prior Functional Status Medical History Reviewed Yes Communication PT does not know baseline diet Mobility and Gait Pt required increasing assistance from her kids for short ambulation with her rollator at home Activities of Daily Living and IADL's As above, pt reports assistance for all ADLs since recent d/c home from hospital this week Social History Household Members none Living Arrangements House Number of Floors (Floors) One Floor Number of Stairs To Enter/Railing? 1 platform step up into the house Home Environment Standard Height Toilet,Walk in Shower Home Equipment Four Wheel Walker,Hand Held Shower Employment Status Retired M3 OT- IP Subjective and Pain Start: 08/11/23 12:15 Freq: Status: Active Protocol: Document 08/11/23 09:09 [facility] (Rec: 08/11/23 12:38 [facility] [id number]) OT- Subjective Occupational Therapy Visit Type Type Initial Evaluation Visit Start Time 09:09 Visit Stop Time 09:35 Total Visit Minutes 26 Occupational Therapy Visit Comments Patient Comments Pt having to use the BSC. Patient/Caregiver Goals To get better. OT Pain Assessment Pain When Pain Assessed During Mobility Pain Present Pain Present Pain Reported Location Back Intensity 5 Scale Used Numeric (0 - 10) M4 OT- IP ADL's Start: 08/11/23 12:15 Freq: Status: Active Protocol: Document 08/11/23 09:09 [facility] (Rec: 08/11/23 12:38 [facility] [id number]) OT STG-[id number]-[id number] Comments OT Self-Feeding Comments Not at meal time, per chart pt 's daughter has been assisting the pt. OT ADL-Grooming Comments OT Grooming Comments NOt performed. OT ADL-Oral Care Comments Oral Care Comments Not performed. OT ADL-Dressing General Eval Lower Body Dressing Ability Maximum Assistance Comments OT Dressing Comments Assist to help alberta brief over her feet and pull up over her hips. Pt would benefit from LB equipment to use to assist with her dressing needs. OT ADL-Toileting General Evaluation Toileting Ability Maximum Assistance Areas Needing Assistance Manage Clothing,Perform Perineal Hygiene Devices Toileting Assistive Devices Commode Comments OT Toileting Comments Assist to balance while standing with FWW and assist for hygiene and clothing management needs. Pt will benefit from a FWW at home. OT ADL-Bathing Comments OT Bathing Comments Pt will benefit from a shower chair at home. M5 OT- IP IADL's Start: 08/11/23 12:15 Freq: Status: Active Protocol: Document 08/11/23 09:09 [facility] (Rec: 08/11/23 12:38 [facility] [id number]) OT-Instrumental Activities of Daily Living Deficits IADL Deficits Identified Deficits Home Safety Awareness Awareness of Need for Assistance at Home Good Awareness Home Safety Comments At this time since her last admission to the hospital her family has been assisting her for all her needs due to weakness and pain. Medication Management Medication Management Caregiver Administers Money Management Money Management Caregiver Provides Assistance Meal Preparation Meal Preparation Caregiver Provides Assist Tv Production Assistant Tv Production Assistant Caregiver Provides Assist M6 OT- IP Functional Cognition Start: 08/11/23 12:15 Freq: Status: Active Protocol: Document 08/11/23 09:09 [facility] (Rec: 08/11/23 12:38 [facility] [id number]) Cognitive Factors Limiting Selfcare Function Cognitive Ability Level of Alertness Alert Patient Orientation Name,Age,Birthday,Month,Date, Year,Day of Week,Place, Situation Attention Span Ability Capable of Focused Attention, Capable of Sustained Attention Ability to Follow Commands Able to Follow One Step Commands Cognitive Comments Cognitive Assessment Comments Pt able to follow commands for ADl and mobility needs. Pt is well aware that she can no longer care for herself and needing assist. OT- Vision and Hearing OT- Hearing Assessment OT- Hearing Assessment WFL OT- Vision Assessment Visual Acuity No Vision Aides At Hospital M7 OT- IP Mobility and Balance Start: 08/11/23 12:15 Freq: Status: Active Protocol: Document 08/11/23 09:09 [facility] (Rec: 08/11/23 12:38 [facility] [id number]) OT- Bed Mobility Assessment Supine to Sit Supine to Sit Assist Maximum Assistance,1 Person Assistance Sit to Supine Sit to Supine Assist Moderate Assistance,2 Person Assistance OT-Transfer Assessment Sit to and From Stand Sit to and from Stand Minimal Assistance,Moderate Assistance,1 Person Assistance Transfers Transfer Ability Minimal Assistance,Moderate Assistance,1 Person Assistance Technique Transfer Destination Bed,Bedside Commode Transfer Technique Stand Step Pivot Devices Transfer Assistive Devices Gait Belt,Front Wheeled Walker Comments Mobility Comments MAX AX 1 to get out of the bed with HOB up. MOD Ax2 to get back in from high gurney. MIn/ MODA X1 to stand to fww and assist for balance and to guide the FWW. OT- Balance Assessment Sitting Balance and Reactions Static Sitting Balance Ability Fair Dynamic Sitting Balance Ability Fair Standing Balance and Reactions Static Standing Balance Ability Fair Dynamic Standing Balance Ability Fair M8 OT- IP Objective Assessments Start: 08/11/23 12:15 Freq: Status: Active Protocol: Document 08/11/23 09:09 [facility] (Rec: 08/11/23 12:38 [facility] [id number]) OT Strength Comments Strength Comments WFL for AROM BUE, NT for strength due to her back pain. M9 OT- IP Assessment and Plan Start: 08/11/23 12:15 Freq: Status: Active Protocol: Document 08/11/23 09:09 [facility] (Rec: 08/11/23 12:38 [facility] [id number]) OT Summary Assessment and Plan Potential Rehabilitation Potential Good Analytic Complexity at Evaluation Moderate Summary OT Impairments Pain,Balance,Functional Mobility,Self-Feeding,Grooming ,Dressing,Toileting,Bathing, Toilet Transfers,Shower Transfers,Activity Tolerance Progress Towards Goals Slow Progress due to Pain,Slow Progress due to Medical Issues,Slow Progress due to Activity Tolerance Assessment Summary Pt MOD complexity and main barriers are pain, step, and now needing assistance for all needs of ADL's and mobility. Pt has been needing assist from her family since going home from last admission . Pt will still need 24/7 assist and home health at home and best for family to obtain BSC, FWW, shower chair, hospital bed, and wc for longer distances. Pt may also benefit from skilled rehab to help maximize her level of independence- however pt states is aware that she feels that she is not capable to be independent to care for herself anymore. Per chart pt does have CA mets pending her prognosis and may also play into family decision of what to do next. Goals Self-Feeding Goal Standby Assistance Grooming Goal Standby Assistance Dressing Goal Contact Guard Assistance Toileting Goal Minimal Assistance Bathing Goal Minimal Assistance Toilet Transfer Goal Standby Assistance Shower Transfer Goal Minimal Assistance Days to Meet Goals 15 Frequency of Treatment Frequency Of Treatment Once a Day Treatment Plan OT Treatment Plan ADL Training,Functional Mobility,Patient/Family Education,Discharge Planning Discharge Recommendations OT Discharge Recommendations Home with 24/7 Assist Available,Home Health,SNF Rehab,Home vs SNF Home Equipment Needs BSC, FWW, LB dressing equipment, hospital bed, wc
[2023-08-11 14:12] LABS: Appearance Urine UA CLEAR; Bilirubin Urine UA NEGATIVE (NEGATIVE); Color Urine UA YELLOW; Glucose Urine UA NEGATIVE (Negative); Ketones Urine UA NEGATIVE (NEGATIVE); Leukocyte Esterase Urine UA NEGATIVE (NEGATIVE); Nitrite Urine UA NEGATIVE (Negative); Occult Blood Urine UA 1+ (Negative); Protein Urine UA TRACE (Negative); Specific Gravity Urine UA 1.015 (1.000-1.035); Urobilinogen Urine UA 0.2 E.U./dL (0.2)
[2023-08-11 14:41] LABS: Bacteria Urine Few (2-10); Hyaline Casts Urine 1-5/LPF; RBC Urine 0-1/HPF (0-5/HPF); Squamous Epithelial Cell Urine 1-5 /HPF (0-5/HPF); Transitional Epi Cells Urine 1-5/HPF (0-5/HPF); WBC Urine 1-5/HPF (0-5/HPF)
[2023-08-11 14:42] LABS: Culture Indicated Urine Cult Not Indicated
--- NOTE | 2023-08-11 15:49 | CM.SWNOTE ---
ED MACHINE WELT BUTTER Note MACHINE WELT BUTTER receives consult to discuss higher level of care with patient and family. Patient is 82 y/o female who presents to ED via EMS due to concern for back pain and increased weakness, inability to move. Patient has hx of Breast cancer currently receiving chemotherapy through Dr. Naik, patient was recently admitted to on 08/06/23 due to concern for dehydration and C.diff, patient discharged to home on 08/09/23 and declined HH. Patient's PCP is Dr. Clifford, patient has Medicare and FFWD insurance. MACHINE WELT BUTTER enters room to meet with patient. Patient presents as fatigued but A/Ox4, present in room is daughter Oanh. It is reported that at baseline patient was able to ambulate and used cane or FWW but yesterday patient's back hurt even worse than normal and patient was unable to get up. Patient resides in [place] and has daughters, son and niece that check on patient regularly. PT and OT evaluates patient and PT recommends SNF or 24/7 care, OT recommends Home with 24/7 assist, HH or SNF rehab. Patient endorses preference to be at home. It is reported that patient's mother was at a custodial when she had breast cancer and patient does not want to go to a facility. MACHINE WELT BUTTER discusses caregivers and HH. MACHINE WELT BUTTER discusses the option of family members taking turns to stay with patient as well, it is reported that some of patient's children work and are unable to stay during the day. Patient agrees to HH, patient denies preference, MACHINE WELT BUTTER calls [facility] per rotation on calender. It is reported that services can start as soon as Tuesday08/15/23. MACHINE WELT BUTTER faxes order, F2F and clinicals. MACHINE WELT BUTTER provides daughter with senior resource guide, list of Private pay and contracted caregivers, and DME resources. Patient has upcoming PCP appt on 08/22/23, patient's daughter asks about hospital bed and MACHINE WELT BUTTER encourages patient to ask PCP about this for rx. Plan: patient to d/c to home via BLS with [facility] referral, daughter states she will stay with patient tonight and the next night if needed, family to look into caregivers, patient to f/u with outpatient team for further care. Estephania Watt, [employer]
== END 2023-08-11 17:05 | disposition home or self-care (01) ==
PROVIDERS: Emergency Medicine; Emergency Provider Emergency Medicine; Family Provider Family Medicine; PCP Family Medicine
DX: M54.50 Low back pain, unspecified (principal); R18.8 Other ascites; C50.919 Malignant neoplasm of unspecified site of unspecified female breast
CPT/HCPCS: 36415; 51798; 71045; 72131; 72148; 74177; 80053; 81001; 81003; 85007; 85025; 96374; 96375; 96376; 97161; 97166; 99284; J2270; J2405; J2765; Q9967

== ENCOUNTER → 2023-09-02 11:56 | Outpatient (ROUT) | payer MEDICARE, SELFPAY ==
[2023-08-09 13:37] VITALS: BMI 27.4
[2023-09-02 12:09] LABS: Ammonia (NH3) 20 umol/L (9-30)
== END ==
PROVIDERS: Family Provider Family Medicine; PCP Family Medicine; Visit Provider Internal Medicine
DX: K75.81 Nonalcoholic steatohepatitis (NASH) (principal); K74.60 Unspecified cirrhosis of liver; D50.9 Iron deficiency anemia, unspecified; C77.3 Secondary and unspecified malignant neoplasm of axilla and upper limb lymph nodes; K76.6 Portal hypertension
CPT/HCPCS: 82140

== ENCOUNTER → 2023-09-06 12:13 | Outpatient (CLI) | payer MEDICARE, SELFPAY ==
[2023-08-09 13:37] VITALS: BMI 27.4
--- NOTE | 2023-09-06 12:18 | DI.RAD.S_ITS ---
PROCEDURE: XR CHEST 2V INDICATIONS: COUGH TECHNIQUE: 2 views of the chest were acquired. COMPARISON: [facility], , XR CHEST 1V, 08/11/2023, 11:40. FINDINGS: Surgical changes and devices: Right chest wall Port-A-Cath tip is in the expected location of SVC/right atrium. Lungs and pleura: Emphysematous changes are noted in bilateral lung russell. There is pulmonary vascular congestion. No definite focal infiltrate. Blunting of bilateral costophrenic angles are seen suggestive of trace pleural effusion. No gross pneumothorax. Mild pulmonary edema is also seen. Mediastinum: Mediastinal contours are normal. Heart size is enlarged. Bones and chest wall: No suspicious bony abnormalities. Soft tissues appear unremarkable. IMPRESSION: Cardiomegaly and mild congestion. COPD. Trace bilateral pleural effusion. No pneumothorax. No definite focal infiltrate. Dictated by: Saeid Govea M.D. on 09/06/2023 at 14:48 Approved by: Saeid Govea M.D. on 09/06/2023 at 14:48
== END ==
LOC: RAD 12:16
PROVIDERS: Family Provider Family Medicine; PCP Family Medicine; Referring Provider Nurse Practitioner; Visit Provider Nurse Practitioner
DX: I51.7 Cardiomegaly (principal); J44.9 Chronic obstructive pulmonary disease, unspecified; R05.9 Cough, unspecified; R06.2 Wheezing; R09.89 Other specified symptoms and signs involving the circulatory and respiratory systems
CPT/HCPCS: 71046

== ENCOUNTER 2023-09-10 13:12 | Emergency (ER) | payer MEDICARE, SELFPAY ==
[2023-08-09 13:37] VITALS: BMI 27.4
[2023-09-10] VITALS (16 sets, daily range): BP systolic 109–135; BP diastolic 53–68; PULSE 80–91; RESP 16–25; TEMP 37.1; O2SAT 91–96; BMI 34.7
--- NOTE | 2023-09-10 13:18 | DI.RAD.S_ITS ---
PROCEDURE: XR CHEST 1V INDICATIONS: dyspnea, cough TECHNIQUE: One view of the chest was acquired. COMPARISON: [facility], CR, XR CHEST 2V, 09/06/2023, 12:27. FINDINGS: Surgical changes and devices: Right-sided Port-A-Cath in place. Lungs and pleura: Left basilar atelectasis and or infiltrate. No pneumothorax. Mediastinum: Mediastinal contours appear normal. Heart size is normal. Bones and chest wall: No suspicious bony lesions. Overlying soft tissues appear unremarkable. Generalized decreased osseous mineralization noted. IMPRESSION: Left basilar atelectasis and or infiltrate Approved by: Cayden Potts M.D. on 09/10/2023 at 14:13
--- NOTE | 2023-09-10 13:34 | ED.SOB ---
HPI - SOB/Dyspnea General Chief Complaint: Shortness of Breath/Dyspnea Stated Complaint: SOB Time Seen by Provider: 09/10/23 13:18 Source: patient Mode of arrival: EMS History of Present Illness HPI Narrative: 82-year-old female with history of metastatic breast cancer (stopped chemo/radiation 07/23), nonalcoholic steatohepatitis with cirrhosis presents by EMS from rehab for shortness of breath. Patient states she has been short of breath with a cough for the last week, however it is worse today. Patient placed on small amount of supplemental oxygen by EMS and transported to the ER for further evaluation. Patient noted to have distended abdomen, no hx of paracentesis Related Data Home Medications Medication Instructions Recorded Confirmed multivitamin 1 tab PO QAM ##0 12/01/10 08/11/23 acetaminophen 500 mg tablet 500 mg PO Q6H PRN Pain (Scale 04/06/19 08/11/23 (Tylenol Extra Strength) Score 1-3) ezetimibe 10 mg tablet (Zetia) 10 mg PO QAM 08/07/23 08/11/23 metformin 1,000 mg tablet 1,000 mg PO QPM 08/07/23 08/11/23 amlodipine 5 mg tablet 5 mg PO QAM 08/11/23 08/11/23 docusate sodium 250 mg capsule 250 mg PO DAILY PRN Constipation 08/11/23 08/11/23 losartan 50 mg-hydrochlorothiazide 1 tab PO QAM 08/11/23 08/11/23 12.5 mg tablet Previous Rx's Medication Instructions Recorded blood-glucose meter #1 ea 10/06/21 lancets #200 ea 10/06/21 blood sugar diagnostic (Blood #50 ea 12/20/22 Glucose Test strips) Disabled Parking Permint #1 ea 02/21/23 oxycodone-acetaminophen 5 mg-325 1 tab PO Q6H PRN pain #10 tabs 06/14/23 mg tablet lidocaine 5 % topical patch 1 patch topical DAILY PRN pain #30 08/11/23 ea oxycodone 5 mg tablet 5 mg PO QID PRN pain #20 tabs 08/11/23 Allergies Allergy/AdvReac Type Severity Reaction Status Date / Time No Known Drug Allergies Allergy Verified 08/06/23 22:49 Review of Systems Review of Systems Narrative: Negative except as noted above Patient History Medical History Skin lesion Anemia Medicare annual wellness visit, subsequent Well adult exam Immunotherapy History of urinary tract infection Lesion of bladder Pulmonary nodule Gross hematuria Cirrhosis Splenomegaly 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Osteoarthritis of left shoulder Right hip pain Strain of tendon of left rotator cuff 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EASTON (nonalcoholic steatohepatitis) (10/2014) Hyperglycemia (Unknown) Diverticular disease (Unknown) Carpal tunnel syndrome (Unknown) Hyperlipemia (Unknown) Hypertension (Unknown) Surgical History History of partial mastectomy of left breast (07/29/21) Hx of eye surgery History of surgery H/O right wrist surgery Hx of cholecystectomy Hx of cataract surgery (Unknown) Hx of appendectomy (Unknown) History of carpal tunnel release (Unknown) Status post cholecystectomy Family History Father Cancer Mother Cancer Other Carcinoma of upper-outer quadrant of left female breast Social History marital status: number of children: 3 household members: none occupational status: previously employed Smoking Status: Never smoker alcohol intake: never substance use type: does not use Smoking Status: Never smoker alcohol intake frequency: 0-2 drinks per day Substance Use Type: does not use Exam Initial Vital Signs Initial Vital Signs: Vital Signs Temperature 98.8 F 09/10/23 13:12 Pulse Rate 80 09/10/23 13:12 Respiratory Rate 24 09/10/23 13:12 Blood Pressure 119/59 L 09/10/23 13:12 Pulse Oximetry 94 09/10/23 13:12 Oxygen Delivery Method Nasal Cannula 09/10/23 13:12 Oxygen Flow Rate 2 09/10/23 13:12 Const: Awake, alert, debilitated, frail, appears chronically unwell Cardiac: regular rate, regular rhythm RESP: unlabored, clear bilaterally, no wheezing GI: Soft, distended, no tenderness to light or deep palpation Skin: Warm, Dry, intact, small 3 x 4 cm fungating mass in the left axillary region Neuro: AO x3, CN II-XII grossly intact, moves all extremities Procedures Paracentesis Indication: Ascites Procedure: therapeutic paracentesis Local Anesthetic: lidocaine 1% and with epi Amount of anesthesia used (mL): 5 Preparation: sterile prep and drape and Blade used to make crystal in skin Fluid: clear Post Procedure Exam: awake, alert, normal BP, normal HR and normal SpO2 Patient Tolerated Procedure: Well and No complications Complications: none Course Orders Ordered: Discontinued Medications Lidocaine/Epinephrine (Lidocaine 1% W/Epi) 4 ml INJ INTRA-OP ONE Stop: 09/10/23 17:47 Last Admin: 09/10/23 17:54 Dose: 4 ml Documented By: MARILIN Vital Signs Vital signs: Vital Signs - 8 hr 09/10/23 13:12 09/10/23 13:14 09/10/23 13:15 Temperature 98.8 F Pulse Rate 80 83 Respiratory Rate 24 Blood Pressure 119/59 L 119/59 L Pulse Oximetry 94 93 Oxygen Delivery Method Nasal Cannula Oxygen Flow Rate 2 0 09/10/23 13:30 09/10/23 13:31 09/10/23 13:31 Temperature Pulse Rate 81 81 Respiratory Rate 18 19 Blood Pressure 112/55 L Pulse Oximetry 92 91 Oxygen Delivery Method Oxygen Flow Rate 0 0 09/10/23 14:00 09/10/23 14:30 09/10/23 14:30 Temperature Pulse Rate 80 81 Respiratory Rate 19 Blood Pressure 117/56 L Pulse Oximetry 93 91 Oxygen Delivery Method Oxygen Flow Rate 0 0 09/10/23 15:00 09/10/23 15:00 09/10/23 15:36 Temperature Pulse Rate 83 86 Respiratory Rate Blood Pressure 109/53 L Pulse Oximetry 91 Oxygen Delivery Method Room Air Oxygen Flow Rate 0 09/10/23 15:37 09/10/23 15:37 09/10/23 16:00 Temperature Pulse Rate 85 85 Respiratory Rate 25 H 20 Blood Pressure 124/58 L Pulse Oximetry 95 94 Oxygen Delivery Method Room Air Oxygen Flow Rate 09/10/23 16:00 09/10/23 16:30 09/10/23 16:30 Temperature Pulse Rate 83 Respiratory Rate 16 Blood Pressure 119/68 117/58 L Pulse Oximetry 92 Oxygen Delivery Method Oxygen Flow Rate MDM - SOB/Dyspnea Differential Diagnosis Differential diagnosis: Likely acute exacerbation of chronic obstructive airways disease, congestive heart failure and community acquired pneumonia Lab Data 09/10/23 13:42 09/10/23 13:42 Labs: Lab Results 09/10/23 09/10/2324 Range/Units 13:20 13:42 15:50 WBC 7.0 (4.5-11.0) X10^3/uL RBC 3.42 L (4.0-5.2) X10^6/uL Hgb 11.6 L (12.0-16.0) g/dL Hct 34.2 L (36-46) % MCV 100.2 H (80-100) fL MCH 33.8 (26-34) PG MCHC 33.7 (30-36) % RDW 17.8 H (11.6-14.8) % Plt Count 132 L (150-400) X10^3/uL Neut % (Auto) 71.7 (50-75) % Lymph % (Auto) 13.6 L (25-40) % Mccracken % (Auto) 8.7 (3-14) % Eos % (Auto) 5.7 H (2-4) % Baso % (Auto) 0.3 (0-2) % Neut # (Auto) 5000 (1905-7611) /uL Lymph # (Auto) 1000 L (5307-6633) /uL Mccracken # (Auto) 600 (0-900) /uL Eos # (Auto) 400 (0-450) /uL Baso # (Auto) 0 (0-100) /uL PT 18.8 H (9.4-12.5) SECONDS INR 1.6 H (0.9-1.3) Sodium 130 L (137-145) mmol/L Potassium 4.6 (3.4-5.1) mmol/L Chloride 97 L (98-107) mmol/L Carbon Dioxide 27 (22-32) mmol/L BUN 16 (7-17) mg/dL Creatinine 0.86 (0.52-1.04) mg/dL Estimated GFR > 60 (>60) mL/min BUN/Creatinine Ratio 18.6 (6-22) Glucose 116 H (80-110) mg/dL Lactate 2.5 H 2.3 H (0.7-2.1) mmol/L Calcium 7.9 L (8.4-10.2) mg/dL Total Bilirubin 1.5 H (0.2-1.3) mg/dL AST 88 H (14-36) IU/L ALT 27 (<35) IU/L Alkaline Phosphatase 191 H (38-126) U/L NT-Pro-B Natriuret Pep 389 (<450) pg/mL Total Protein 6.4 (6.3-8.2) g/dL Albumin 2.3 L (3.5-5.0) g/dL Globulin 4.1 (1.7-4.1) g/dL Albumin/Globulin Ratio 0.6 L (1.0-2.8) Chlamy pneumoniae PCR Not detected (Not Detect) Adenovirus (PCR) Not detected (Not Detect) B.parapertussis DNA PCR Not detected (Not Detecte) Coronavirus OC43 (PCR) Not detected (Not Detect) Coronavirus HKU1 (PCR) Not detected (Not Detect) Coronavirus 229E (PCR) Not detected (Not Detect) SARS-CoV-2 (PCR) Not detected (Not Detecte) Coronavirus NL63 (PCR) Not detected (Not Detect) Human Metapneumovir PCR Not detected (Not Detect) Influenza Type A (PCR) Not detected (Not Detect) Influenza Type B (PCR) Not detected (Not Detect) M. pneumoniae (PCR) Not detected (Not Detect) Parainfluenza 1 (PCR) Not detected (Not Detect) Parainfluenza 2 (PCR) Not detected (Not Detect) Parainfluenza 3 (PCR) Not detected (Not Detect) Parainfluenza 4 (PCR) Not detected (Not Detect) RSV (PCR) Not detected (Not Detect) Entero/Rhino (PCR) Not detected (Not Detect) MDM Narrative Medical decision making narrative: Chronically unwell appearing patient with dyspnea. She arrived on nasal cannula, however when taken off of supplemental oxygen saturations remained 94+%. Patient states that she has stopped doing chemo or radiation due to the fact that she has failed previous treatments and her oncologist apparently told her that the current chemo would only prolong her life, not make it any better. Laboratory work is reviewed, patient previously had leukopenia, however today her WBC count is within normal limits. Chronic thrombocytopenia is at baseline. Chest x-ray shows possible pneumonia in the left-hand side. Given patient's history of cancer we will order CT angio for additional assessment. CT angio negative for pneumonia, trace bilateral pleural effusions noted. Extensive ascites also noted in the abdomen. Patient is previous abdominal studies showed small to moderate ascites, and my suspicion is that these have increased since last scan. I offered therapeutic paracentesis for patient comfort, and she accepted. 4 L of clear yellow fluid drained from abdomen and patient reported feeling much improved. Patient discharged back to her senior living facility in stable condition. Discharge Plan Departure Patient Disposition: Home Clinical Impression: Acute dyspnea, Ascites, Breast cancer, stage 4, senior care resident Instructions: DI for Abdominal Paracentesis Prescriptions: No Action multivitamin Tablet 1 tab PO QAM Qty: 0 (DME) Disabled Parking Permint See Rx Instructions .ROUTE .MEDSUPPLY Qty: 1 0RF Rx Instructions: I find this patient to be medically disabled and qualified for Disabled Parking as indicated and signed on the Accompanying Disabled Parking Application for individuals. (DME) blood-glucose meter Misc See Rx Instructions .Route Qty: 1 0RF Rx Instructions: Check blood glucose BID (DME) lancets Misc See Rx Instructions .Route Qty: 200 0RF Rx Instructions: As directed (DME) Blood Glucose Test Strip See Rx Instructions .Route Qty: 50 6RF Rx Instructions: As directed acetaminophen [Tylenol Extra Strength] 500 mg tablet 500 mg PO Q6H PRN (Reason: Pain (Scale Score 1-3)) oxycodone-acetaminophen 5-325 mg tablet 1 tab PO Q6H PRN (Reason: pain) Qty: 10 0RF ezetimibe [Zetia] 10 mg tablet 10 mg PO QAM Rx Instructions: TAKE ONE TABLET BY MOUTH ONE TIME DAILY metformin 1,000 mg Tablet 1,000 mg PO QPM Rx Instructions: at night amlodipine 5 mg tablet 5 mg PO QAM losartan-hydrochlorothiazide 50-12.5 mg tablet 1 tab PO QAM Rx Instructions: TAKE ONE TABLET BY MOUTH ONE TIME DAILY docusate sodium 250 mg capsule 250 mg PO DAILY PRN (Reason: Constipation) Rx Instructions: use any day that you also take a narcotic pain pill to prevent constipation oxycodone 5 mg tablet 5 mg PO QID PRN (Reason: pain) Qty: 20 0RF lidocaine 5 % adhesive patch,medicated 1 patch topical DAILY PRN (Reason: pain) Qty: 30 0RF Rx Instructions: leave on most painful area for up to 12 hrs Referrals: Darion Clifford, [Primary Care Provider] - Stand Alone Forms: Patient Portal/API
[2023-09-10 13:56] LABS: Add Manual Diff / Slide Review NO; Basophils Absolute Auto 0 /uL (0-100); Basophils Percent Auto 0.3 % (0-2); Eosinophils Absolute Auto 400 /uL (0-450); Eosinophils Percent Auto 5.7 % (2-4); Hematocrit 34.2 % (36-46); Hemoglobin 11.6 g/dL (12.0-16.0); Lymphocytes Absolute Auto 1000 /uL (1100-4500); Lymphocytes Percent Auto 13.6 % (25-40); Mean Corpuscular HGB Conc 33.7 % (30-36); Mean Corpuscular Hemoglobin 33.8 PG (26-34); Mean Corpuscular Volume 100.2 fL (80-100); Monocytes Absolute Auto 600 /uL (0-900); Monocytes Percent Auto 8.7 % (3-14); Neutrophils Absolute Auto 5000 /uL (1500-7000); Neutrophils Percent Auto 71.7 % (50-75); Platelet Count 132 X10^3/uL (150-400); Red Blood Cell Count 3.42 X10^6/uL (4.0-5.2); Red Cell Distribution Width 17.8 % (11.6-14.8)
[2023-09-10 14:01] LABS: INR 1.6 (0.9-1.3); Prothrombin Time 18.8 SECONDS (9.4-12.5)
[2023-09-10 14:05] LABS: Lactate (Lactic Acid) 2.5 mmol/L (0.7-2.1)
[2023-09-10 14:06] LABS: Alanine Aminotransferase 27 IU/L (<35); Albumin 2.3 g/dL (3.5-5.0); Albumin Globulin Ratio 0.6 (1.0-2.8); Alkaline Phosphatase 191 U/L (38-126); Aspartate Aminotransferase 88 IU/L (14-36); BUN Creatinine Ratio 18.6 (6-22); Bilirubin Total 1.5 mg/dL (0.2-1.3); Blood Urea Nitrogen 16 mg/dL (7-17); Calcium 7.9 mg/dL (8.4-10.2); Carbon Dioxide 27 mmol/L (22-32); Chloride 97 mmol/L (98-107); Estimated Glomerular Filt Rate > 60 mL/min (>60); Globulin 4.1 g/dL (1.7-4.1); Glucose 116 mg/dL (80-110); HEMOLYSIS < 15 (0-50); Potassium 4.6 mmol/L (3.4-5.1); Sodium 130 mmol/L (137-145); Total Protein 6.4 g/dL (6.3-8.2)
[2023-09-10 14:11] LABS: Adenovirus Not Detected (Not Detect); B. parapertussis Not Detected (Not Detecte); Bordetella pertussis Not Detected (Not Detect); Chlamydophila pneumoniae Not Detected (Not Detect); Coronavirus 229E Not Detected (Not Detect); Coronavirus HKU1 Not Detected (Not Detect); Coronavirus NL 63 Not Detected (Not Detect); Coronavirus OC43 Not Detected (Not Detect); Human Metapneumovirus Not Detected (Not Detect); Human Rhinovirus/Enterovirus Not Detected (Not Detect); Influenza A Not Detected (Not Detect); Influenza B Not Detected (Not Detect); Mycoplasma pneumoniae Not Detected (Not Detect); Parainfluenza Virus 1 Not Detected (Not Detect); Parainfluenza Virus 2 Not Detected (Not Detect); Parainfluenza Virus 3 Not Detected (Not Detect); Parainfluenza Virus 4 Not Detected (Not Detect); Respiratory Syncytial Virus Not Detected (Not Detect); SARS- CoV-2 Not Detected (Not Detecte)
[2023-09-10 14:15] LABS: NT-proBNP (BNP-Adult 18+) 389 pg/mL (<450)
--- NOTE | 2023-09-10 15:10 | DI.CT.S_ITS ---
PROCEDURE: CT ANGIO CHEST PE PROTOCOL INDICATIONS: DYSPNEA, HYPOXIA, BREAST CA TECHNIQUE: After the administration of intravenous contrast, 2 mm thick sections acquired from the pulmonary apices to the posterior costophrenic angles. 3-dimensional maximum intensity projection (MIP) coronal and sagittal reformats were then acquired through the thorax. For radiation dose reduction, the following was used: automated exposure control, adjustment of mA and/or kV according to patient size. COMPARISON: [facility], CT, CT ABDOMEN PELVIS WITH CONTRAST, 08/13/2023, 21:55. FINDINGS: Image quality: Diagnostic. Pulmonary arteries: Pulmonary arteries are normal in size, and demonstrate no intraluminal filling defects to suggest central pulmonary embolism. Lower Neck: No enlarged lymph nodes. Thyroid: No thyroid nodules which require sonographic follow up, per consensus guidelines. Axillae: No enlarged lymph nodes. Chest Wall: Unremarkable. Right-sided Port-A-Cath in good position Bones: Unremarkable. Lungs and Pleura: Moderate bilateral pleural effusions present. Biapical pulmonary scarring or irregular pleural thickening noted. Heart: Heart size is normal. No pericardial effusion. Thoracic Vessels: No aortic aneurysm. Mediastinum and Kimberli: Right hilar adenopathy measures up to 1.7 cm Esophagus: No wall thickening. No hiatal hernia. Upper Abdomen: Cirrhotic shrunken liver is quite irregular with capsular micro nodularity. Splenomegaly, large volume ascites, cholecystectomy and vascular collaterals noted. IMPRESSION: No evidence of pulmonary embolism, aortic dissection or aneurysm. Right hilar adenopathy and biapical pulmonary scarring or pleural based nodularity. Moderate pleural effusions Hepatic cirrhosis, splenomegaly and large volume abdominal ascites. Diffuse underlying hepatic metastatic disease would be difficult to exclude Approved by: Cayden Potts M.D. on 09/10/2023 at 16:05
[2023-09-10 15:34] LABS: Reflexed Lactate in 2 Hours Y
[2023-09-10 16:05] LABS: Lactate 2HR (Lactic Acid Rflx) 2.3 mmol/L (0.7-2.1)
[2023-09-10] MEDS: LIDOCAINE 1% W/EPI 4 ML INJ (17:54)
== END 2023-09-10 19:08 | disposition home or self-care (01) ==
PROVIDERS: Emergency Provider Emergency Medicine; Family Provider Family Medicine; PCP Family Medicine
DX: R18.8 Other ascites (principal); R06.00 Dyspnea, unspecified; C50.919 Malignant neoplasm of unspecified site of unspecified female breast; I10 Essential (primary) hypertension
CPT/HCPCS: 36415; 49082; 71045; 71275; 80053; 83605; 83880; 85025; 85610; 87040; 87633; 93005; 93010; 99284; Q9967

== ENCOUNTER → 2023-09-15 14:32 | Outpatient (CLI) | payer MEDICARE, SELFPAY ==
[2023-08-09 13:37] VITALS: BMI 27.4
--- NOTE | 2023-09-15 | DI.RAD.S_ITS ---
PROCEDURE: XR CHEST 2V INDICATIONS: cough, congestion, wheezing TECHNIQUE: 2 views of the chest were acquired. COMPARISON: [facility], CT, CT ANGIO CHEST PE PROTOCOL, 09/10/2023, 15:22. [facility], CR, XR CHEST 1V, 09/10/2023, 13:50. FINDINGS: Surgical changes and devices: Right tunneled port device is in place and unchanged in positioning. Lungs and pleura: Diffuse interstitial prominence. Small bilateral pleural effusions larger on the left. Patchy bibasilar opacities likely representing atelectasis. Mild perihilar airway thickening. No dense consolidation. Mediastinum: Mediastinal contours are stable. Heart size is normal. Bones and chest wall: No suspicious bony abnormalities. Soft tissues appear unremarkable. IMPRESSION: Diffuse interstitial prominence with bilateral perihilar airway thickening and small bilateral pleural effusions. No dense consolidation seen. Findings may represent an infectious or inflammatory process with pulmonary edema not excluded if clinically appropriate. Dictated by: Alexander Pop M.D. on 09/15/2023 at 20:28 Approved by: Alexander Pop M.D. on 09/15/2023 at 20:32
== END ==
LOC: RAD 14:34
PROVIDERS: Family Provider Family Medicine; PCP Family Medicine; Referring Provider Nurse Practitioner; Visit Provider Nurse Practitioner
DX: J90 Pleural effusion, not elsewhere classified (principal); R05.9 Cough, unspecified; R09.81 Nasal congestion; R06.2 Wheezing
CPT/HCPCS: 71046

== ENCOUNTER 2023-09-19 14:06 | Emergency (ER) | payer MEDICARE, SELFPAY ==
[2023-08-09 13:37] VITALS: BMI 27.4
[2023-09-19] VITALS (20 sets, daily range): BP systolic 108–124; BP diastolic 51–78; PULSE 77–89; RESP 12–28; O2SAT 94–98; BMI 35.5
--- NOTE | 2023-09-19 14:27 | DI.RAD.S_ITS ---
PROCEDURE: XR CHEST 1V INDICATIONS: Flu like symptoms TECHNIQUE: One view of the chest was acquired. COMPARISON: [facility], CR, XR CHEST 2V, 09/15/2023, 14:49. [facility], CR, XR CHEST 1V, 09/10/2023, 13:50. FINDINGS: Surgical changes and devices: Right-sided Port-A-Cath in stable position. Lungs and pleura: Blunting of the bilateral costophrenic angles, greater on the left, likely representing small bilateral pleural effusions. Prominent interstitial markings bilaterally. Mediastinum: Mediastinal contours appear normal. Heart size is normal. Bones and chest wall: No suspicious bony lesions. Overlying soft tissues appear unremarkable. IMPRESSION: Small left greater than right pleural effusions with prominent interstitial markings bilaterally is similar in appearance to prior. Differential includes edema or infection. Dictated by: Stephan Chambers M.D. on 09/19/2023 at 14:59 Approved by: Stephan Chambers M.D. on 09/19/2023 at 15:01
[2023-09-19 14:56] LABS: Add Manual Diff / Slide Review NO; Basophils Absolute Auto 100 /uL (0-100); Basophils Percent Auto 0.8 % (0-2); Eosinophils Absolute Auto 500 /uL (0-450); Eosinophils Percent Auto 6.7 % (2-4); Hematocrit 34.5 % (36-46); Hemoglobin 11.5 g/dL (12.0-16.0); Lymphocytes Absolute Auto 800 /uL (1100-4500); Lymphocytes Percent Auto 10.8 % (25-40); Mean Corpuscular HGB Conc 33.2 % (30-36); Mean Corpuscular Hemoglobin 33.4 PG (26-34); Mean Corpuscular Volume 100.5 fL (80-100); Monocytes Absolute Auto 600 /uL (0-900); Neutrophils Absolute Auto 5600 /uL (1500-7000); Neutrophils Percent Auto 73.7 % (50-75); Red Blood Cell Count 3.44 X10^6/uL (4.0-5.2); Red Cell Distribution Width 17.2 % (11.6-14.8); White Blood Cell Count 7.7 X10^3/uL (4.5-11.0)
[2023-09-19 14:57] LABS: Platelet Count 33 X10^3/uL (150-400)
[2023-09-19 15:10] LABS: Alanine Aminotransferase 24 IU/L (<35); Albumin 2.3 g/dL (3.5-5.0); Albumin Globulin Ratio 0.5 (1.0-2.8); Alkaline Phosphatase 205 U/L (38-126); Aspartate Aminotransferase 77 IU/L (14-36); BUN Creatinine Ratio 25.6 (6-22); Bilirubin Total 1.3 mg/dL (0.2-1.3); Blood Urea Nitrogen 21 mg/dL (7-17); Carbon Dioxide 26 mmol/L (22-32); Chloride 96 mmol/L (98-107); Estimated Glomerular Filt Rate > 60 mL/min (>60); Globulin 4.2 g/dL (1.7-4.1); Glucose 150 mg/dL (80-110); HEMOLYSIS < 15 (0-50); Lipase 67 U/L (23-300); Potassium 4.8 mmol/L (3.4-5.1); Sodium 128 mmol/L (137-145); Total Protein 6.5 g/dL (6.3-8.2)
[2023-09-19 15:12] LABS: Anisocytosis 1+
[2023-09-19 15:13] LABS: Platelet Estimate Decreased on smear
[2023-09-19] MEDS: MORPHINE 4 MG/ML INJ IV ×2 (15:43→22:25)
[2023-09-19 16:36] LABS: INR 1.5 (0.9-1.3)
[2023-09-19 16:38] LABS: PTT Partial Thromboplastin Tim 26 SECONDS (25.1-36.5)
--- NOTE | 2023-09-19 17:11 | ED.ABDPAIN ---
HPI - Abdominal Pain <China Tarik Rodas DO - Last Filed: 09/20/23 07:22> General Chief Complaint: Abdominal Pain Stated Complaint: RLQ pain, h/o Liver failure Time Seen by Provider: 09/19/23 16:02 Source: patient, family and EMS Mode of arrival: EMS History of Present Illness HPI narrative: 82-year-old female with history of metastatic breast cancer, stopped chemo/radiation 07/20/2023, nonalcoholic steatohepatitis with cirrhosis presents from [facility] with complaint of right upper quadrant/abdominal pain. Patient had a paracentesis in the past week. She has had some increased pain localized to the right side adjacent to the area paracentesis. She is unsure if there is any increased redness or swelling. She states pain is otherwise not throughout her abdomen. She does not recall any fevers or chills. She denies any chest pain or shortness of breath. She states no nausea or vomiting. No diaphoresis. She states she has been stooling regularly no diarrhea. No melena or hematochezia. Patient denies any new urinary symptoms. She does wear a brief. She states she has chronic swelling in her legs but does not feel like it is any worse. She states she does have fluid on her belly she was told that it would reaccumulate but she does not feel like it has significantly worse than it was when she was here most recently. Related Data Home Medications Medication Instructions Recorded Confirmed multivitamin 1 tab PO QAM ##0 12/01/10 08/11/23 acetaminophen 500 mg tablet 500 mg PO Q6H PRN Pain (Scale 04/06/19 08/11/23 (Tylenol Extra Strength) Score 1-3) ezetimibe 10 mg tablet (Zetia) 10 mg PO QAM 08/07/23 08/11/23 metformin 1,000 mg tablet 1,000 mg PO QPM 08/07/23 08/11/23 amlodipine 5 mg tablet 5 mg PO QAM 08/11/23 08/11/23 docusate sodium 250 mg capsule 250 mg PO DAILY PRN Constipation 08/11/23 08/11/23 losartan 50 mg-hydrochlorothiazide 1 tab PO QAM 08/11/23 08/11/23 12.5 mg tablet Previous Rx's Medication Instructions Recorded blood-glucose meter #1 ea 10/06/21 lancets #200 ea 10/06/21 blood sugar diagnostic (Blood #50 ea 12/20/22 Glucose Test strips) Disabled Parking Permint #1 ea 02/21/23 oxycodone-acetaminophen 5 mg-325 1 tab PO Q6H PRN pain #10 tabs 06/14/23 mg tablet lidocaine 5 % topical patch 1 patch topical DAILY PRN pain #30 08/11/23 ea oxycodone 5 mg tablet 5 mg PO QID PRN pain #20 tabs 08/11/23 Allergies Allergy/AdvReac Type Severity Reaction Status Date / Time No Known Drug Allergies Allergy Verified 08/06/23 22:49 Review of Systems <China Rodas DO - Last Filed: 09/20/23 07:22> Review of Systems ROS Unobtainable: All systems reviewed & are unremarkable except as noted in HPI and below Patient History <China Rodas DO - Last Filed: 09/20/23 07:22> Medical History Skin lesion Anemia Medicare annual wellness visit, subsequent Well adult exam Immunotherapy History of urinary tract infection Lesion of bladder Pulmonary nodule Gross hematuria Cirrhosis Splenomegaly 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Osteoarthritis of left shoulder Right hip pain Strain of tendon of left rotator cuff 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[place] (nonalcoholic steatohepatitis) (10/2014) Hyperglycemia (Unknown) Diverticular disease (Unknown) Carpal tunnel syndrome (Unknown) Hyperlipemia (Unknown) Hypertension (Unknown) Surgical History History of partial mastectomy of left breast (07/29/21) Hx of eye surgery History of surgery H/O right wrist surgery Hx of cholecystectomy Hx of cataract surgery (Unknown) Hx of appendectomy (Unknown) History of carpal tunnel release (Unknown) Status post cholecystectomy Family History Father Cancer Mother Cancer Other Carcinoma of upper-outer quadrant of left female breast Social History marital status: number of children: 3 household members: none occupational status: previously employed Smoking Status: Never smoker alcohol intake: never substance use type: does not use Smoking Status: Never smoker alcohol intake frequency: 0-2 drinks per day Substance Use Type: does not use Exam <China Rodas DO - Last Filed: 09/20/23 07:22> Narrative Exam Narrative: GENERAL: Alert and oriented, patient has some mild issues with history but overall answers questions appropriately. HEENT: Head normocephalic, atraumatic, EOMI, no scleral icterus, pupils reactive, face symmetric, moist mucous membranes NECK: Supple, full range of motion CARDIOVASCULAR: Regular rate and rhythm without murmurs, rubs or gallops. RESPIRATORY: Breath sounds equal bilaterally, no wheezes rales or rhonchi. No tachypnea or accessory muscle use. ABDOMEN: Soft, distended. Patient is nontender throughout the rest of her abdomen except in the right lateral abdomen just adjacent to the ribs. She has a bandage in place, I can see the prior puncture libby there is some mild erythema but no discrete fluid collections, fluctuance there is some edema present. Normoactive bowel sounds all 4 quadrants. No guarding or rebound, rigidity, no mass : No CVA tenderness EXTREMITIES: Normal range of motion, no clubbing. Bilateral lower extremity edema. Neurovascularly intact NEUROLOGICAL: Cranial nerves II through XII grossly intact. Moving all extremities SKIN: Warm, dry, no petechiae, no rashes or lesions. Initial Vital Signs Initial Vital Signs: Vital Signs Pulse Rate 86 09/19/23 14:10 Respiratory Rate 22 09/19/23 14:10 Blood Pressure 118/56 L 09/19/23 14:10 Pulse Oximetry 96 09/19/23 14:10 Oxygen Delivery Method Nasal Cannula 09/19/23 14:10 Oxygen Flow Rate 2 09/19/23 14:10 <Taye Navarro MD - Last Filed: 09/20/23 01:40> Initial Vital Signs Initial Vital Signs: Vital Signs Pulse Rate 86 09/19/23 14:10 Respiratory Rate 22 09/19/23 14:10 Blood Pressure 118/56 L 09/19/23 14:10 Pulse Oximetry 96 09/19/23 14:10 Oxygen Delivery Method Nasal Cannula 09/19/23 14:10 Oxygen Flow Rate 2 09/19/23 14:10 Course <China Rodas DO - Last Filed: 09/20/23 07:22> Orders Ordered: Discontinued Medications Ceftriaxone Sodium 2,000 mg/ (Sodium Chloride) 100 mls @ 200 mls/hr IV NOW ONE Stop: 09/19/23 18:36 Last Infusion: 09/19/23 20:09 Dose: Infused Documented By: Admin: 09/19/23 19:00 Dose: 200 mls/hr Documented By: RB Sodium Chloride (Normal Saline 0.9%) 1,000 mls @ 1,000 mls/hr IV BOLUS ONE Stop: 09/19/23 21:19 Last Infusion: 09/19/23 21:40 Dose: Infused Documented By: Admin: 09/19/23 20:24 Dose: 1,000 mls/hr Documented By: AB Morphine Sulfate (Morphine 4 Mg/Ml Inj) 4 mg IV NOW ONE Stop: 09/19/23 15:41 Last Admin: 09/19/23 15:43 Dose: 4 mg Documented By: ELAINE Morphine Sulfate (Morphine 4 Mg/Ml Inj) 4 mg IV Q4H PRN PRN Reason: pain Last Admin: 09/19/23 22:25 Dose: 4 mg Documented By: Ondansetron HCl (Ondansetron 4 Mg Odt) 4 mg PO NOW PRN PRN Reason: Nausea And Vomiting Ondansetron HCl (Ondansetron 4 Mg/2 Ml Inj) 4 mg IV NOW PRN PRN Reason: Nausea And Vomiting Oxycodone HCl (Oxycodone Ir 5 Mg Tablet) 5 mg PO NOW ONE Stop: 09/19/23 20:09 Last Admin: 09/19/23 20:18 Dose: 5 mg Documented By: Vital Signs Vital signs: Vital Signs - 8 hr 09/19/23 18:00 09/19/23 18:30 09/19/23 19:00 Pulse Rate 86 85 87 Respiratory Rate 18 22 23 Blood Pressure Pulse Oximetry 96 97 98 Oxygen Delivery Method Nasal Cannula Oxygen Flow Rate 2 09/19/23 19:30 09/19/23 20:00 09/19/23 20:30 Pulse Rate 85 85 89 Respiratory Rate 13 16 28 H Blood Pressure Pulse Oximetry 97 97 97 Oxygen Delivery Method Oxygen Flow Rate 09/19/23 21:00 09/19/23 21:08 09/19/23 21:08 Pulse Rate 87 Respiratory Rate 14 Blood Pressure 112/53 L 112/53 L Pulse Oximetry 97 Oxygen Delivery Method Oxygen Flow Rate 09/19/23 21:08 09/19/23 21:30 09/19/23 21:30 Pulse Rate 88 87 Respiratory Rate 18 22 Blood Pressure 109/78 Pulse Oximetry 96 96 Oxygen Delivery Method Oxygen Flow Rate 09/19/23 22:00 09/19/23 22:00 09/19/23 22:30 Pulse Rate 87 Respiratory Rate 14 Blood Pressure 121/56 L 115/51 L Pulse Oximetry 97 Oxygen Delivery Method Oxygen Flow Rate 09/19/23 22:30 09/19/23 23:00 09/19/23 23:00 Pulse Rate 86 80 Respiratory Rate 13 12 Blood Pressure 109/53 L Pulse Oximetry 97 95 Oxygen Delivery Method Oxygen Flow Rate <Taye Navarro MD - Last Filed: 09/20/23 01:40> Orders Ordered: Discontinued Medications Ceftriaxone Sodium 2,000 mg/ (Sodium Chloride) 100 mls @ 200 mls/hr IV NOW ONE Stop: 09/19/23 18:36 Last Infusion: 09/19/23 20:09 Dose: Infused Documented By: Admin: 09/19/23 19:00 Dose: 200 mls/hr Documented By: RB Sodium Chloride (Normal Saline 0.9%) 1,000 mls @ 1,000 mls/hr IV BOLUS ONE Stop: 09/19/23 21:19 Last Infusion: 09/19/23 21:40 Dose: Infused Documented By: Admin: 09/19/23 20:24 Dose: 1,000 mls/hr Documented By: AB Morphine Sulfate (Morphine 4 Mg/Ml Inj) 4 mg IV NOW ONE Stop: 09/19/23 15:41 Last Admin: 09/19/23 15:43 Dose: 4 mg Documented By: SB Morphine Sulfate (Morphine 4 Mg/Ml Inj) 4 mg IV Q4H PRN PRN Reason: pain Last Admin: 09/19/23 22:25 Dose: 4 mg Documented By: AB Ondansetron HCl (Ondansetron 4 Mg Odt) 4 mg PO NOW PRN PRN Reason: Nausea And Vomiting Ondansetron HCl (Ondansetron 4 Mg/2 Ml Inj) 4 mg IV NOW PRN PRN Reason: Nausea And Vomiting Oxycodone HCl (Oxycodone Ir 5 Mg Tablet) 5 mg PO NOW ONE Stop: 09/19/23 20:09 Last Admin: 09/19/23 20:18 Dose: 5 mg Documented By: Reevaluation(s) Reevaluation #1: I assumed care of the patient at shift change at 6:00 p.m.. At approximately 8:00 p.m. I re-evaluated the patient. Her concern is for focal abdominal wall pain where she had her recent paracentesis. She has an elevated lactic acid, I see that she is on metformin and that she has had elevated lactate before. She does not have leukocytosis. She has not febrile her vital signs are reassuring she does not appear to be in any distress. There is focal abdominal tenderness at the site of her paracentesis which seems to be abdominal wall tenderness there is no erythema or warmth there. I reviewed imaging, there are no inflammatory changes in the abdominal wall. She does not have generalized abdominal tenderness. I considered but do not suspect spontaneous bacterial peritonitis. Vital Signs Vital signs: Vital Signs - 8 hr 09/19/23 18:00 09/19/23 18:30 09/19/23 19:00 Pulse Rate 86 85 87 Respiratory Rate 18 22 23 Blood Pressure Pulse Oximetry 96 97 98 Oxygen Delivery Method Nasal Cannula Oxygen Flow Rate 2 09/19/23 19:30 09/19/23 20:00 09/19/23 20:30 Pulse Rate 85 85 89 Respiratory Rate 13 16 28 H Blood Pressure Pulse Oximetry 97 97 97 Oxygen Delivery Method Oxygen Flow Rate 09/19/23 21:00 09/19/23 21:08 09/19/23 21:08 Pulse Rate 87 Respiratory Rate 14 Blood Pressure 112/53 L 112/53 L Pulse Oximetry 97 Oxygen Delivery Method Oxygen Flow Rate 09/19/23 21:08 09/19/23 21:30 09/19/23 21:30 Pulse Rate 88 87 Respiratory Rate 18 22 Blood Pressure 109/78 Pulse Oximetry 96 96 Oxygen Delivery Method Oxygen Flow Rate 09/19/23 22:00 09/19/23 22:00 09/19/23 22:30 Pulse Rate 87 Respiratory Rate 14 Blood Pressure 121/56 L 115/51 L Pulse Oximetry 97 Oxygen Delivery Method Oxygen Flow Rate 09/19/23 22:30 09/19/23 23:00 09/19/23 23:00 Pulse Rate 86 80 Respiratory Rate 13 12 Blood Pressure 109/53 L Pulse Oximetry 97 95 Oxygen Delivery Method Oxygen Flow Rate MDM - Abdominal Pain <China Rodas, DO - Last Filed: 09/20/23 07:22> Lab Data 09/19/23 14:20 09/19/23 14:20 Labs: Lab Results 09/19/23 09/19/23 09/19/23 Range/Units 14:20 16:40 18:45 WBC 7.7 (4.5-11.0) X10^3/uL RBC 3.44 L (4.0-5.2) X10^6/uL Hgb 11.5 L (12.0-16.0) g/dL Hct 34.5 L (36-46) % MCV 100.5 H (80-100) fL MCH 33.4 (26-34) PG MCHC 33.2 (30-36) % RDW 17.2 H (11.6-14.8) % Plt Count 33 L* (150-400) X10^3/uL Neut % (Auto) 73.7 (50-75) % Lymph % (Auto) 10.8 L (25-40) % [place] % (Auto) 8.0 (3-14) % Eos % (Auto) 6.7 H (2-4) % Baso % (Auto) 0.8 (0-2) % Neut # (Auto) 5600 (8430-6057) /uL Lymph # (Auto) 800 L (8756-4406) /uL [place] # (Auto) 600 (0-900) /uL Eos # (Auto) 500 H (0-450) /uL Baso # (Auto) 100 (0-100) /uL Platelet Estimate Decreased on smear RBC Morphology See below Anisocytosis 1+ H PT 17.0 H (9.4-12.5) SECONDS INR 1.5 H (0.9-1.3) APTT 26 (25.1-36.5) SECONDS Sodium 128 L (137-145) mmol/L Potassium 4.8 (3.4-5.1) mmol/L Chloride 96 L (98-107) mmol/L Carbon Dioxide 26 (22-32) mmol/L BUN 21 H (7-17) mg/dL Creatinine 0.82 (0.52-1.04) mg/dL Estimated GFR > 60 (>60) mL/min BUN/Creatinine Ratio 25.6 H (6-22) Glucose 150 H (80-110) mg/dL Lactate 3.6 H 2.4 H (0.7-2.1) mmol/L Calcium 8.0 L (8.4-10.2) mg/dL Total Bilirubin 1.3 (0.2-1.3) mg/dL AST 77 H (14-36) IU/L ALT 24 (<35) IU/L Alkaline Phosphatase 205 H (38-126) U/L Total Protein 6.5 (6.3-8.2) g/dL Albumin 2.3 L (3.5-5.0) g/dL Globulin 4.2 H (1.7-4.1) g/dL Albumin/Globulin Ratio 0.5 L (1.0-2.8) Lipase 67 (23-300) U/L Procalcitonin 0.15 (<0.5) ng/mL Urine RBC (0-5/HPF) Urine WBC (0-5/HPF) Ur Squamous Epith Cells (0-5/HPF) Ur Transition Epith Cell (0-5/HPF) Urine Bacteria (None) Ur Culture Indicated? Vol Urine Centrifuged 09/19/23 Range/Units 21:00 WBC (4.5-11.0) X10^3/uL RBC (4.0-5.2) X10^6/uL Hgb (12.0-16.0) g/dL Hct (36-46) % MCV (80-100) fL MCH (26-34) PG MCHC (30-36) % RDW (11.6-14.8) % Plt Count (150-400) X10^3/uL Neut % (Auto) (50-75) % Lymph % (Auto) (25-40) % [place] % (Auto) (3-14) % Eos % (Auto) (2-4) % Baso % (Auto) (0-2) % Neut # (Auto) (9877-0987) /uL Lymph # (Auto) (5404-6988) /uL [place] # (Auto) (0-900) /uL Eos # (Auto) (0-450) /uL Baso # (Auto) (0-100) /uL Platelet Estimate RBC Morphology Anisocytosis PT (9.4-12.5) SECONDS INR (0.9-1.3) APTT (25.1-36.5) SECONDS Sodium (137-145) mmol/L Potassium (3.4-5.1) mmol/L Chloride (98-107) mmol/L Carbon Dioxide (22-32) mmol/L BUN (7-17) mg/dL Creatinine (0.52-1.04) mg/dL Estimated GFR (>60) mL/min BUN/Creatinine Ratio (6-22) Glucose (80-110) mg/dL Lactate (0.7-2.1) mmol/L Calcium (8.4-10.2) mg/dL Total Bilirubin (0.2-1.3) mg/dL AST (14-36) IU/L ALT (<35) IU/L Alkaline Phosphatase (38-126) U/L Total Protein (6.3-8.2) g/dL Albumin (3.5-5.0) g/dL Globulin (1.7-4.1) g/dL Albumin/Globulin Ratio (1.0-2.8) Lipase (23-300) U/L Procalcitonin (<0.5) ng/mL Urine RBC 0-1/hpf (0-5/HPF) Urine WBC 1-5/hpf (0-5/HPF) Ur Squamous Epith Cells 5-10 /hpf H (0-5/HPF) Ur Transition Epith Cell 0-1/hpf (0-5/HPF) Urine Bacteria Few (2-10) H (None) Ur Culture Indicated? Specimen cultured Vol Urine Centrifuged 10ml (spun) Point of care testing: Urine Dip Bedside Urine Glucose Negative Bedside Urine Bilirubin - Negative Bedside Urine Ketone - Negative Urine Specific [place] 1.015 Bedside Urine Occult Blood - Negative Bedside Urine pH 6.0 Bedside Urine Protein - Negative Bedside Urine Urobilinogen - Negative Bedside Urine Nitrite - Negative Bedside Urine Leukocytes + [address] scan - abdomen/pelvis: Radiologist's Impression: [address] [address] [address] Scan Report Signed Patient: Patricia Giordano MR#: [id number] : 1940 Acct:[id number] Age/Sex: 82 / F Date of Service: 09/19/23 Loc: ED Accession Number: [id number] Procedure: CT abdomen pelvis w con Ordering Provider: China Rodas D.O. PROCEDURE: CT ABDOMEN PELVIS W CON INDICATIONS: RUQ pain, s/p paracentesis, redness skin, no other abd pain TECHNIQUE: After the administration of intravenous contrast, axial sections acquired from the lung bases to the pubic symphysis. Coronal and sagittal reformats were performed. For radiation dose reduction, the following was used: automated exposure control, adjustment of mA and/or kV according to patient size. COMPARISON: [facility], CT, CT ABDOMEN PELVIS WITH CONTRAST, 08/13/2023, 21:55. [facility], CT, CT ABDOMEN PELVIS W CON, 08/11/2023, 1:05. FINDINGS: Image quality: Diagnostic. Lower Chest: Small bilateral pleural effusions with adjacent atelectasis versus consolidation, left greater than right. ABDOMEN: Liver: Cirrhotic morphology to the liver. There is extensive heterogeneity to the liver. No well-defined masses are seen on this single phase of contrast study. Portal hypertension is indicated by splenomegaly and large varices within the retroperitoneum and root of the mesentery as well as recannulization of the umbilical vein. Gallbladder: Surgically absent. Biliary ducts: Biliary ductal dilatation, likely secondary to post cholecystectomy status. Pancreas: No ductal dilation. Spleen: Size is enlarged. Adrenal Glands: No adrenal nodules. Kidneys and Ureters: No hydronephrosis. No solid mass. No complex renal cystic lesion which requires follow up. Stomach and Bowel: Normal colonic caliber, without significant wall thickening. Diverticulosis without evidence of acute diverticulitis. Peritoneum: Moderate to large volume ascites is increased compared to prior. Diffuse mesenteric edema. No free air. Ventral Wall: No significant ventral hernia. Diffuse anasarca. Abdominal Nodes: No retroperitoneal or mesenteric adenopathy by size criteria. Vessels: Aorta and inferior vena cava are normal in size. Atherosclerotic vascular calcifications. PELVIS: Pelvic Organs: Unremarkable. Bladder: No bladder wall thickening, accounting for underdistention. Pelvic Nodes: No enlarged lymph nodes. Miscellaneous: No inguinal hernias are seen. Bones: No aggressive osseous abnormality. Decreased osseous mineralization. Degenerative changes of the spine. Mild compression deformities of the superior endplates of L1 and L2 appear new compared to prior. Chronic moderate compression deformity of T8 is stable. IMPRESSION: 1. Hepatic cirrhosis with sequela of portal hypertension as above. No definite patent masses are seen. 2. Moderate to large volume ascites is increased compared to prior. 3. Diffuse anasarca. Otherwise, no acute abnormalities are seen within the subcutaneous tissues. 4. Small bilateral pleural effusions with adjacent atelectasis versus consolidation. 5. Mild compression deformities of the superior endplates of L1 and L2 appear new compared to prior. 6. Additional chronic findings as above. Dictated by: Stephan Chambers M.D. on 09/19/2023 at 18:07 Approved by: Stephan Chambers M.D. on 09/19/2023 at 18:14 ECG Data Attestation: I personally reviewed and interpreted this ECG as follows: Interpretation: Sinus rhythm rate of 79 [place] 146 QRS of 112 QTC of 444. Incomplete right bundle. MDM Narrative Medical decision making narrative: 82-year-old female presents with complaint of right-sided abdominal pain adjacent to her prior paracentesis site. Patient has some mild erythema and edema she has quite a bit of ascites she is nontender in the rest of her abdomen. Patient is afebrile. Patient did have a dose of pain medication feels much improved afterwards. Labs show white count of 7.7 hemoglobin of 11 platelets of 33. INR is 1.5. Sodium is 128 with potassium of 4.8 chloride 96 CO2 of 26 and a BUN 21 glucose is 150, LFTs tell me bilirubin is 1.3 with an AST of 77 ALT 24 and a lipase of 67. Protocol, lactate and blood cultures were ordered Patient was covered with dose of IV antibiotic. Patient's pain is very localized, CT abdomen pelvis was obtained does not show any localized abscess or fluid collection does have large amount of anasarca and ascites. Has a hepatic cirrhosis with portal hypertension, small bilateral pleural effusions, mild compression deformities. Patient is on O2 she has been on this for several days. SBP is on differential but patient's pain is very localized making it less likely. Patient had recently stopped her chemo and radiation for breast cancer secondary to organ dysfunction. Discussed goals of care with patient and family at bedside. Patient signed out to Dr. Nvaarro while additional labs are pending. After re-evaluation, I think the patient will be discharged back to her previous care setting. I considered but do not suspect spontaneous bacterial peritonitis, she does not appear to have a cellulitis at the site of her paracentesis, does not appear to have a urinary tract infection. At this point I recommend symptomatic treatment for her abdominal wall pain and continuing other previous care. <Taye Navarro MD - Last Filed: 09/20/23 01:40> Lab Data Lab results narrative: CBC shows thrombocytopenia 33,000. She has not bleeding, this does not require any specific treatment at this point. White count is normal. CMP is reassuring she does have a sodium of 128. Lactic on arrival is 3.6 trending down to 2.4. Urinalysis does not suggest infection Labs: Lab Results 09/19/23 09/19/23 09/19/23 Range/Units 14:20 16:40 18:45 WBC 7.7 (4.5-11.0) X10^3/uL RBC 3.44 L (4.0-5.2) X10^6/uL Hgb 11.5 L (12.0-16.0) g/dL Hct 34.5 L (36-46) % MCV 100.5 H (80-100) fL MCH 33.4 (26-34) PG MCHC 33.2 (30-36) % RDW 17.2 H (11.6-14.8) % Plt Count 33 L* (150-400) X10^3/uL Neut % (Auto) 73.7 (50-75) % Lymph % (Auto) 10.8 L (25-40) % [place] % (Auto) 8.0 (3-14) % Eos % (Auto) 6.7 H (2-4) % Baso % (Auto) 0.8 (0-2) % Neut # (Auto) 5600 (3219-7658) /uL Lymph # (Auto) 800 L (8171-4317) /uL [place] # (Auto) 600 (0-900) /uL Eos # (Auto) 500 H (0-450) /uL Baso # (Auto) 100 (0-100) /uL Platelet Estimate Decreased on smear RBC Morphology See below Anisocytosis 1+ H PT 17.0 H (9.4-12.5) SECONDS INR 1.5 H (0.9-1.3) APTT 26 (25.1-36.5) SECONDS Sodium 128 L (137-145) mmol/L Potassium 4.8 (3.4-5.1) mmol/L Chloride 96 L (98-107) mmol/L Carbon Dioxide 26 (22-32) mmol/L BUN 21 H (7-17) mg/dL Creatinine 0.82 (0.52-1.04) mg/dL Estimated GFR > 60 (>60) mL/min BUN/Creatinine Ratio 25.6 H (6-22) Glucose 150 H (80-110) mg/dL Lactate 3.6 H 2.4 H (0.7-2.1) mmol/L Calcium 8.0 L (8.4-10.2) mg/dL Total Bilirubin 1.3 (0.2-1.3) mg/dL AST 77 H (14-36) IU/L ALT 24 (<35) IU/L Alkaline Phosphatase 205 H (38-126) U/L Total Protein 6.5 (6.3-8.2) g/dL Albumin 2.3 L (3.5-5.0) g/dL Globulin 4.2 H (1.7-4.1) g/dL Albumin/Globulin Ratio 0.5 L (1.0-2.8) Lipase 67 (23-300) U/L Procalcitonin 0.15 (<0.5) ng/mL Urine RBC (0-5/HPF) Urine WBC (0-5/HPF) Ur Squamous Epith Cells (0-5/HPF) Ur Transition Epith Cell (0-5/HPF) Urine Bacteria (None) Ur Culture Indicated? Vol Urine Centrifuged 09/19/23 Range/Units 21:00 WBC (4.5-11.0) X10^3/uL RBC (4.0-5.2) X10^6/uL Hgb (12.0-16.0) g/dL Hct (36-46) % MCV (80-100) fL MCH (26-34) PG MCHC (30-36) % RDW (11.6-14.8) % Plt Count (150-400) X10^3/uL Neut % (Auto) (50-75) % Lymph % (Auto) (25-40) % [place] % (Auto) (3-14) % Eos % (Auto) (2-4) % Baso % (Auto) (0-2) % Neut # (Auto) (1895-4905) /uL Lymph # (Auto) (6043-3788) /uL [place] # (Auto) (0-900) /uL Eos # (Auto) (0-450) /uL Baso # (Auto) (0-100) /uL Platelet Estimate RBC Morphology Anisocytosis PT (9.4-12.5) SECONDS INR (0.9-1.3) APTT (25.1-36.5) SECONDS Sodium (137-145) mmol/L Potassium (3.4-5.1) mmol/L Chloride (98-107) mmol/L Carbon Dioxide (22-32) mmol/L BUN (7-17) mg/dL Creatinine (0.52-1.04) mg/dL Estimated GFR (>60) mL/min BUN/Creatinine Ratio (6-22) Glucose (80-110) mg/dL Lactate (0.7-2.1) mmol/L Calcium (8.4-10.2) mg/dL Total Bilirubin (0.2-1.3) mg/dL AST (14-36) IU/L ALT (<35) IU/L Alkaline Phosphatase (38-126) U/L Total Protein (6.3-8.2) g/dL Albumin (3.5-5.0) g/dL Globulin (1.7-4.1) g/dL Albumin/Globulin Ratio (1.0-2.8) Lipase (23-300) U/L Procalcitonin (<0.5) ng/mL Urine RBC 0-1/hpf (0-5/HPF) Urine WBC 1-5/hpf (0-5/HPF) Ur Squamous Epith Cells 5-10 /hpf H (0-5/HPF) Ur Transition Epith Cell 0-1/hpf (0-5/HPF) Urine Bacteria Few (2-10) H (None) Ur Culture Indicated? Specimen cultured Vol Urine Centrifuged 10ml (spun) Point of care testing: Urine Dip Bedside Urine Glucose Negative Bedside Urine Bilirubin - Negative Bedside Urine Ketone - Negative Urine Specific [place] 1.015 Bedside Urine Occult Blood - Negative Bedside Urine pH 6.0 Bedside Urine Protein - Negative Bedside Urine Urobilinogen - Negative Bedside Urine Nitrite - Negative Bedside Urine Leukocytes + 70 Esterase MDM Narrative Medical decision making narrative: 82-year-old female presents with complaint of right-sided abdominal pain adjacent to her prior paracentesis site. Patient has some mild erythema and edema she has quite a bit of ascites she is nontender in the rest of her abdomen. Patient is afebrile. Patient did have a dose of pain medication feels much improved afterwards. Labs show white count of 7.7 hemoglobin of 11 platelets of 33. INR is 1.5. Sodium is 128 with potassium of 4.8 chloride 96 CO2 of 26 and a BUN 21 glucose is 150, LFTs tell me bilirubin is 1.3 with an AST of 77 ALT 24 and a lipase of 67. Protocol, lactate and blood cultures were ordered Patient was covered with dose of IV antibiotic. Patient's pain is very localized, CT abdomen pelvis was obtained does not show any localized abscess or fluid collection does have large amount of anasarca and ascites. Has a hepatic cirrhosis with portal hypertension, small bilateral pleural effusions, mild compression deformities. Patient is on O2 she has been on this for several days. SBP is on differential but patient's pain is very localized making it less likely. Patient had recently stopped her chemo and radiation for breast cancer. Discussed goals of care Patient signed out while additional labs are pending. After re-evaluation, I think the patient will be discharged back to her previous care setting. I considered but do not suspect spontaneous bacterial peritonitis, she does not appear to have a cellulitis at the site of her paracentesis, does not appear to have a urinary tract infection. At this point I recommend symptomatic treatment for her abdominal wall pain and continuing other previous care. Discharge Plan Departure Patient Disposition: [facility] Clinical Impression: Abdominal pain, acute, right upper quadrant, Abdominal wall pain Activity Restrictions/Additional Instructions: Emergency department workup today is reassuring. Pain seems to be coming from the right upper quadrant where there was a recent paracentesis. Workup is otherwise reassuring and I think it is appropriate to resume previous care. Patient has as needed orders for pain medications please continue those as needed. Continue other previous care. Recheck in the emergency department for fevers vomiting or other acute symptoms. Prescriptions: No Action multivitamin Tablet 1 tab PO QAM Qty: 0 (DME) Disabled Parking Permint See Rx Instructions .ROUTE .MEDSUPPLY Qty: 1 0RF Rx Instructions: I find this patient to be medically disabled and qualified for Disabled Parking as indicated and signed on the Accompanying Disabled Parking Application for individuals. (DME) blood-glucose meter Misc See Rx Instructions .Route Qty: 1 0RF Rx Instructions: Check blood glucose BID (DME) lancets Misc See Rx Instructions .Route Qty: 200 0RF Rx Instructions: As directed (DME) Blood Glucose Test Strip See Rx Instructions .Route Qty: 50 6RF Rx Instructions: As directed acetaminophen [Tylenol Extra Strength] 500 mg tablet 500 mg PO Q6H PRN (Reason: Pain (Scale Score 1-3)) oxycodone-acetaminophen 5-325 mg tablet 1 tab PO Q6H PRN (Reason: pain) Qty: 10 0RF ezetimibe [Zetia] 10 mg tablet 10 mg PO QAM Rx Instructions: TAKE ONE TABLET BY MOUTH ONE TIME DAILY metformin 1,000 mg Tablet 1,000 mg PO QPM Rx Instructions: at night amlodipine 5 mg tablet 5 mg PO QAM losartan-hydrochlorothiazide 50-12.5 mg tablet 1 tab PO QAM Rx Instructions: TAKE ONE TABLET BY MOUTH ONE TIME DAILY docusate sodium 250 mg capsule 250 mg PO DAILY PRN (Reason: Constipation) Rx Instructions: use any day that you also take a narcotic pain pill to prevent constipation oxycodone 5 mg tablet 5 mg PO QID PRN (Reason: pain) Qty: 20 0RF lidocaine 5 % adhesive patch,medicated 1 patch topical DAILY PRN (Reason: pain) Qty: 30 0RF Rx Instructions: leave on most painful area for up to 12 hrs
[2023-09-19 18:44] LABS: Lactate (Lactic Acid) 3.6 mmol/L (0.7-2.1)
[2023-09-19] MEDS: cefTRIAXone 2,000 MG in SODIUM CHLORIDE 0.9% 100 ML 200 MG IV (19:00)
[2023-09-19 19:27] LABS: Procalcitonin 0.15 ng/mL (<0.5)
[2023-09-19 20:16] LABS: Reflexed Lactate in 2 Hours Y
[2023-09-19] MEDS: OXYCODONE IR 5 MG TABLET PO (20:18)
[2023-09-19] MEDS: SODIUM CHLORIDE 0.9% 1,000 ML 1000 ML IV (20:24)
[2023-09-19 20:26] LABS: Lactate 2HR (Lactic Acid Rflx) 2.4 mmol/L (0.7-2.1)
--- NOTE | 2023-09-19 20:35 | PC.NURSE ---
[facility] called for update. At this time advised them that we still have pending tests. It may be an hour or so. We can call them when we have an answer about admission or return.
[2023-09-19 21:10] LABS: Urine Volume 10mL (spun)
[2023-09-19 21:17] LABS: Bacteria Urine Few (2-10); Culture Indicated Urine Specimen Cultured; RBC Urine 0-1/HPF (0-5/HPF); Squamous Epithelial Cell Urine 5-10 /HPF (0-5/HPF); Transitional Epi Cells Urine 0-1/HPF (0-5/HPF); WBC Urine 1-5/HPF (0-5/HPF)
== END 2023-09-19 23:44 ==
PROVIDERS: Emergency Medicine; Emergency Provider Emergency Medicine; Family Provider Family Medicine; PCP Family Medicine
DX: R10.11 Right upper quadrant pain (principal); K74.60 Unspecified cirrhosis of liver; Z79.899 Other long term (current) drug therapy
CPT/HCPCS: 36415; 71045; 74177; 80053; 81003; 81015; 83605; 83690; 84145; 85025; 85610; 85730; 87040; 87077; 87086; 87186; 93005; 96361; 96365; 96375; 96376; 99284; 99285; J0696; J2270; Q9967

== ENCOUNTER 2023-10-04 20:24 | Inpatient (IN) | payer MEDICARE, SELFPAY ==
[2023-08-09 13:37] VITALS: BMI 27.4
[2023-10-04 20:25] VITALS: BP 94/54; PULSE 84; RESP 24; TEMP 37; O2SAT 91; BMI 34.2
[2023-10-04 20:31] VITALS: PULSE 106; RESP 25; O2SAT 94
[2023-10-04 20:57] VITALS: BP 81/51; PULSE 104; RESP 30; O2SAT 95
--- NOTE | 2023-10-04 20:58 | ED_ITS ---
HPI - General Adult General Chief complaint: Shortness of Breath/Dyspnea Stated complaint: covid + resp distress Time Seen by Provider: 10/04/23 20:31 Source: EMS History of Present Illness HPI narrative: 82-year-old woman with widely metastatic breast cancer currently at [facility] rehab with plans to begin hospice care tomorrow presents with 4 hours of increasing dyspnea. She was noted to be COVID positive at [facility], I am not sure when the initial test returned. When medics arrived at the rehab facility they found her sats in the mid 80s, not responding well to nasal cannula oxygen she arrives on non-rebreather oxygen with saturations in the low 90s, quite a bit of debris in the posterior pharynx with minimal responsiveness. She does have a DNR POLST form, family including daughter, son and [id number] are all present. We again reviewed the fact that she is actively dying, was planning to start hospice tomorrow and discussed making sure that she was not uncomfortable, not experiencing any air hunger and allowing to occur naturally. All family members were in agreement Related Data Home Medications Medication Instructions Recorded Confirmed multivitamin 1 tab PO QAM ##0 12/01/10 08/11/23 acetaminophen 500 mg tablet 500 mg PO Q6H PRN Pain (Scale 04/06/19 08/11/23 (Tylenol Extra Strength) Score 1-3) ezetimibe 10 mg tablet (Zetia) 10 mg PO QAM 08/07/23 08/11/23 metformin 1,000 mg tablet 1,000 mg PO QPM 08/07/23 08/11/23 amlodipine 5 mg tablet 5 mg PO QAM 08/11/23 08/11/23 docusate sodium 250 mg capsule 250 mg PO DAILY PRN Constipation 08/11/23 08/11/23 losartan 50 mg-hydrochlorothiazide 1 tab PO QAM 08/11/23 08/11/23 12.5 mg tablet Previous Rx's Medication Instructions Recorded blood-glucose meter #1 ea 10/06/21 lancets #200 ea 10/06/21 blood sugar diagnostic (Blood #50 ea 12/20/22 Glucose Test strips) Disabled Parking Permint #1 ea 02/21/23 oxycodone-acetaminophen 5 mg-325 1 tab PO Q6H PRN pain #10 tabs 06/14/23 mg tablet lidocaine 5 % topical patch 1 patch topical DAILY PRN pain #30 08/11/23 ea oxycodone 5 mg tablet 5 mg PO QID PRN pain #20 tabs 08/11/23 Allergies Allergy/AdvReac Type Severity Reaction Status Date / Time No Known Drug Allergies Allergy Verified 08/06/23 22:49 Review of Systems Review of Systems ROS Unobtainable: Unobtainable due to mental condition Patient History Medical History Skin lesion Anemia Medicare annual wellness visit, subsequent Well adult exam Immunotherapy History of urinary tract infection Lesion of bladder Pulmonary nodule Gross hematuria Cirrhosis Splenomegaly 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Osteoarthritis of left shoulder Right hip pain Strain of tendon of left rotator cuff 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E[place] (nonalcoholic steatohepatitis) (10/2014) Hyperglycemia (Unknown) Diverticular disease (Unknown) Carpal tunnel syndrome (Unknown) Hyperlipemia (Unknown) Hypertension (Unknown) Surgical History History of partial mastectomy of left breast (07/29/21) Hx of eye surgery History of surgery H/O right wrist surgery Hx of cholecystectomy Hx of cataract surgery (Unknown) Hx of appendectomy (Unknown) History of carpal tunnel release (Unknown) Status post cholecystectomy Family History Father Cancer Mother Cancer Other Carcinoma of upper-outer quadrant of left female breast Social History marital status: number of children: 3 household members: none occupational status: previously employed Smoking Status: Never smoker alcohol intake: never substance use type: does not use Smoking Status: Never smoker alcohol intake frequency: 0-2 drinks per day Substance Use Type: does not use Exam Initial Vital Signs Initial Vital Signs: Vital Signs Temperature 98.6 F 10/04/23 20:25 Pulse Rate 84 10/04/23 20:25 Respiratory Rate 24 10/04/23 20:25 Blood Pressure 94/54 L 10/04/23 20:25 Pulse Oximetry 91 10/04/23 20:25 Oxygen Delivery Method Non -Rebreather 10/04/23 20:25 General: Acutely ill-appearing woman cachectic, pale, significant secretions that she is not appropriately managing, not responding to stimuli, very dry mucous membranes HEENT: Dry lips tongue as well as cornea Respiratory: Lungs with significant rhonchi in all lung russell and quite a bit of debris in the posterior pharynx. She has a large fungating mass left anterior chest Cardiac: Regular rhythm, no murmurs, blood pressure falling, heart rate slowing Abdomen: Scaphoid, no pain behaviors with palpation Skin: Pale, dry, poorly perfused Neurologic: Minimally responsive Course Orders Ordered: Morphine Sulfate 50 mg/ Sodium (Chloride) 50 mls @ 2 mls/hr IV TITRATE PATI; Protocol Last Titration: 10/04/23 22:14 Dose: 2 mg/hr, 2 mls/hr Documented By: Admin: 10/04/23 21:05 Dose: 2 mg/hr, 2 mls/hr Documented By: VAHE Vital Signs Vital signs: Vital Signs - 8 hr 10/04/23 20:25 10/04/23 20:31 10/04/23 20:57 Temperature 98.6 F Pulse Rate 84 106 H Respiratory Rate 24 25 H Blood Pressure 94/54 L 81/51 L Pulse Oximetry 91 94 Oxygen Delivery Method Non -Rebreather Non -Rebreather Oxygen Flow Rate 15 10/04/23 20:57 10/04/23 21:00 Temperature Pulse Rate 104 H 104 H Respiratory Rate 30 H Blood Pressure Pulse Oximetry 95 95 Oxygen Delivery Method Non -Rebreather Non -Rebreather Oxygen Flow Rate 15 15 Medical Decision Making [facility] Narrative Medical decision making narrative: 82-year-old woman with end-stage metastatic breast cancer, plans to start hospice tomorrow with family aware that is imminent. Explain to them that she was in the process of actively dying upon arrival in the emergency department. Discussion: Family conference at 8:45 p.m. agree with full comfort recognize that she is in the active stages of dying. Discussed with hospitalist 9:00 p.m.. Full comfort admission with morphine drip Patient is admitted to the hospitalist service with full comfort care, morphine drip in place Discharge Plan Departure Patient Disposition: Admitted As Inpatient Clinical Impression: SARS-CoV-2 positive, Need for comfort care Breast cancer metastasized to skin Qualifiers: Laterality: left Qualified Code(s): C50.912 - Malignant neoplasm of unspecified site of left female breast; C79.2 - Secondary malignant neoplasm of skin Respiratory failure Qualifiers: Chronicity: acute Respiratory failure complication: hypoxia and hypercapnia Qualified Code(s): J96.01 - Acute respiratory failure with hypoxia; J96.02 - Acute respiratory failure with hypercapnia Admit Date/Time: 10/04/23 21:02 Admit Provider: Simone Arizmendi
[2023-10-04 21:00] VITALS: PULSE 104; O2SAT 95
[2023-10-04] MEDS: MORPHINE 50 MG in SODIUM CHLORIDE 0.9% 45 ML IV (21:05)
[2023-10-04 21:30] VITALS: PULSE 104; RESP 15; O2SAT 95
[2023-10-04 21:52] LABS: COVID19 -Nasal RAPID POSITIVE (Negative)
[2023-10-04 22:20] VITALS: BMI 34.2
[2023-10-04] MEDS: diphenhydrAMINE 50 MG/ML VIAL 25 MG IV (23:31)
[2023-10-04] MEDS: LORazepam 2 MG/ML INJ 1 MG IV (23:32)
--- NOTE | 2023-10-04 23:55 | PM.HP.1 ---
History of Present Illness History of Present Illness Date Patient Seen: 10/04/23 Time Patient Seen: 22:30 Chief complaint: covid + resp distress Narrative: 82 years old female with a past medical history of metastatic breast cancer, nonalcoholic steatohepatitis, hypertension, dyslipidemia, splenomegaly, cirrhosis and multiple other medical issues was followed emergency room for progressive shortness of breath in the past few hours and lethargic. Patient was noted to be positive for COVID and her symptoms have worsened. On evaluation, patient was in respiratory distress and hypotensive. Family have requested to focus on comfort care measures with possible inpatient care for symptom management [facility] Medical History Skin lesion Anemia Medicare annual wellness visit, subsequent Well adult exam Immunotherapy History of urinary tract infection Lesion of bladder Pulmonary nodule Gross hematuria Cirrhosis Splenomegaly 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Osteoarthritis of left shoulder Right hip pain Strain of tendon of left rotator cuff 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[place] (nonalcoholic steatohepatitis) (10/2014) Hyperglycemia (Unknown) Diverticular disease (Unknown) Carpal tunnel syndrome (Unknown) Hyperlipemia (Unknown) Hypertension (Unknown) Surgical History History of partial mastectomy of left breast (07/29/21) Hx of eye surgery History of surgery H/O right wrist surgery Hx of cholecystectomy Hx of cataract surgery (Unknown) Hx of appendectomy (Unknown) History of carpal tunnel release (Unknown) Status post cholecystectomy Family History Father Cancer Mother Cancer Other Carcinoma of upper-outer quadrant of left female breast Social History marital status: number of children: 3 household members: none occupational status: previously employed Smoking Status: Never smoker alcohol intake: never substance use type: does not use Meds Home Medications and Allergies Home Medications Medication Instructions Recorded Confirmed Type multivitamin 1 tab PO QAM ##0 12/01/10 08/11/23 History acetaminophen 500 mg tablet 500 mg PO Q6H PRN Pain (Scale 04/06/19 08/11/23 History (Tylenol Extra Strength) Score 1-3) blood-glucose meter #1 ea 10/06/21 08/07/23 Rx lancets #200 ea 10/06/21 08/07/23 Rx blood sugar diagnostic (Blood #50 ea 12/20/22 08/07/23 Rx Glucose Test strips) Disabled Parking Permint #1 ea 02/21/23 08/07/23 Rx oxycodone-acetaminophen 5 mg-325 1 tab PO Q6H PRN pain #10 tabs 06/14/23 08/11/23 Rx mg tablet ezetimibe 10 mg tablet (Zetia) 10 mg PO QAM 08/07/23 08/11/23 History metformin 1,000 mg tablet 1,000 mg PO QPM 08/07/23 08/11/23 History amlodipine 5 mg tablet 5 mg PO QAM 08/11/23 08/11/23 History docusate sodium 250 mg capsule 250 mg PO DAILY PRN Constipation 08/11/23 08/11/23 History lidocaine 5 % topical patch 1 patch topical DAILY PRN pain #30 08/11/23 Rx ea losartan 50 mg-hydrochlorothiazide 1 tab PO QAM 08/11/23 08/11/23 History 12.5 mg tablet oxycodone 5 mg tablet 5 mg PO QID PRN pain #20 tabs 08/11/23 Rx Allergies Allergy/AdvReac Type Severity Reaction Status Date / Time No Known Drug Allergies Allergy Verified 08/06/23 22:49 Review of Systems Review of Systems Narrative: non verbal Exam Vital Signs (past 8 hours): - 10/04/23 20:25 10/04/23 20:31 10/04/23 20:57 Temperature 98.6 F Pulse Rate 84 106 H Respiratory Rate 24 25 H Blood Pressure 94/54 L 81/51 L Pulse Oximetry 91 94 Oxygen Delivery Method Non -Rebreather Non -Rebreather Oxygen Flow Rate 15 10/04/23 20:57 10/04/23 21:00 10/04/23 21:30 Temperature Pulse Rate 104 H 104 H 104 H Respiratory Rate 30 H 15 Blood Pressure Pulse Oximetry 95 95 95 Oxygen Delivery Method Non -Rebreather Non -Rebreather Non -Rebreather Oxygen Flow Rate 15 15 15 10/04/23 22:20 Temperature Pulse Rate Respiratory Rate Blood Pressure Pulse Oximetry Oxygen Delivery Method Oximask Oxygen Flow Rate Oxygen Delivery Method Oximask Oxygen Flow Rate 15 Narrative Exam Narrative: nonverbal and short of breath anxious Objective Labs Labs: Laboratory Results - last 24 hr 10/04/23 21:30 SARS-CoV-2 (PCR) Positive H Assessment & Plan Assessment & Plan narrative: 82 years old female with a past medical history of metastatic breast cancer, nonalcoholic steatohepatitis, hypertension, dyslipidemia, splenomegaly, cirrhosis and multiple other medical issues was followed emergency room for progressive shortness of breath in the past few hours and lethargic. Patient was noted to be positive for COVID and her symptoms have worsened. On evaluation, patient was in respiratory distress and hypotensive. Family have requested to focus on comfort care measures with possible inpatient care for symptom management 1. Metastatic breast cancer in the setting of COVID infection #2 acute respiratory failure #3 COVID infection #4 cirrhosis nonalcoholic #5 splenomegaly Patient is now actively dying but has significant symptoms for which symptom management is needed with IV morphine drip to help pain and also air hunger in addition to lorazepam for anxiety/agitation. Family is well aware and have opted to not pursue any active treatment for the COVID but want to focus on symptom management that is best provided in the inpatient setting with intravenous opiates and benzodiazepines CODE STATUS DNR comfort care. No DVT prophylaxis given the comfort care management. Patient was evaluated with the help of video communication device and the location of the provider is [facility] Patient is admitted under inpatient status given the need for IV infusion of opiates in addition to IV benzodiazepine in the setting of active symptoms and patient is actively dying. Expect length of stay is greater than 2 midnights Quality VTE Deep Vein Thrombosis/Pulmonary Embolism Present on Admission: No
--- NOTE | 2023-10-05 01:08 | PC.NURSE ---
Patient arrived to room 229 around 2219, on nonrebreather at 15L and Morphine drip and only responsive to painful stimuli. Family at bedside. Dr. Arizmendi at bedside via [place] device. Comfort care orders maintained. Morphine gtt titrated to comfort, Ativan and Benadryl given once PRN per order. Time of illqm=4014. Dr. Arizmendi notified.
--- NOTE | 2023-10-05 07:51 | P.DN_ITS ---
Discharge Summary History of Illness Narrative: 82 years old female with a past medical history of metastatic breast cancer, nonalcoholic steatohepatitis, hypertension, dyslipidemia, splenomegaly, cirrhosis and multiple other medical issues was followed emergency room for progressive shortness of breath in the past few hours and lethargic. Patient was noted to be positive for COVID and her symptoms have worsened. On evaluation, patient was in respiratory distress and hypotensive. Family have requested to focus on comfort care measures with possible inpatient care for symptom management Hospital Course Date of Admission: 10/04/23 21:02 Date of : 10/05/23 Primary care provider: Darion Clifford DO Consults: 10/04/23 22:58 Consult to Discharge Planning Routine Comment: Consult to Hospice Referral Urgent Comment: Discharge Diagnosis: #1 Metastatic breast cancer in the setting of COVID infection #2 acute respiratory failure #3 COVID infection #4 cirrhosis nonalcoholic #5 splenomegaly Patient is now actively dying but has significant symptoms for which symptom management is needed with IV morphine drip to help pain and also air hunger in addition to lorazepam for anxiety/agitation. Family is well aware and have op alexis to not pursue any active treatment for the COVID but want to focus on symptom management that is best provided in the inpatient setting with intravenous opiates and benzodiazepines CODE STATUS DNR comfort care. Hospital Course: Patient admitted for pain control and actively dying. overnight comfortably. Objective Labs Labs: Laboratory Results - last 24 hr 10/04/23 21:30 SARS-CoV-2 (PCR) Positive H
== END 2023-10-05 00:44 | disposition expired | DRG 177 ==
LOC: ED 21:02 → AC 21:03 → ICU 21:51
PROVIDERS: Admitting Provider Internal Medicine; Emergency Provider Emergency Medicine; Family Provider Family Medicine; PCP Family Medicine; Referring Provider Emergency Medicine; Visit Provider Internal Medicine
DX: U07.1 COVID-19 (principal); J96.01 Acute respiratory failure with hypoxia; J96.02 Acute respiratory failure with hypercapnia; C79.2 Secondary malignant neoplasm of skin; C50.912 Malignant neoplasm of unspecified site of left female breast; K74.60 Unspecified cirrhosis of liver; R16.1 Splenomegaly, not elsewhere classified; Z51.5 Encounter for palliative care; Z66 Do not resuscitate
CPT/HCPCS: 87635; 96365; 99284; J1200; J2060; J2270